=== PATIENT | female | born 1940 | race Caucasian/White ===

== ENCOUNTER 2019-12-01 12:34 | Outpatient (CLI) | payer MEDICARE, SELFPAY ==
--- NOTE | 2019-12-01 12:49 | CT_ITS ---
WS: [id number] CTA ABDOMEN PELVIS TECHNIQUE: Noncontrast plus contrast enhanced CTA of the abdominal aorta with coronal and sagittal re formatted images and additional MIP Images. CLINICAL INFORMATION: AAA COMPARISON: June 23, 2019 DLP: 3339.[address] scans at [facility] use at least one of these dose optimization techniques: automat ed exposure control; mA and/or kV adjustment per patient size (includes targeted exams where dose is matched to clinical indication); or iterative reconstruction. FINDINGS: Interval postoperative changes aortic endograft placement with biiliac extension. Overlapping stent g raft at the level of the renal arteries with dual contrast opacified lumens. Tiny dorsal endoleak at the modular inner endograft inferior junction consistent with type I endoleak. This is just below the renal arteries. Stent remains patent. Peripheral calcification.Right iliac extension with stable right common iliac aneurysm. Excluded infr arenal abdominal aorta aneurysm sac today measures 5.1 x 5.0 x 9.3 CM. This is not significantly wilkins ged from previous. Mild diffuse fatty infiltration of the liver. Cholecystectomy clips. Adrenal glands are normal. Fatty atrophy of the pancreas. Normal spleen. Lung bases are well aerated. Celiac and SMA appear patent at the origin. Bilateral renal artery stents. Normal renal parenchymal enhancement. No hydronephrosis. Diverticulosis. No evidence of acute diverticulitis. No periaortic lymphadenopathy. No free fluid in the pelvis. Hysterectomy. CT/CT angio abdomen pelvis [id number] IMPRESSION: 1. Interval postoperative changes aortic endograft placement. 2. Tiny dorsal endoleak along the inner endograft distal junction just below t he level of the renal arteries. 3. Excluded aneurysm sac today measures 5.1 x 5.0 x 9.3 CM. 4. Biiliac graft extension with stable right common iliac artery aneurysm sac. 5. Bilateral renal artery stents with normal renal parenchymal enhancement. 6. Celiac and SMA are patent proximally. 7. Prior cholecystectomy.
[2019-12-01 13:47] LABS: Blood Urea Nitrogen 20 mg/dL (8-23)
[2019-12-01] MEDS: iodixanol 320 mg/mL 100mL Btl IV (14:22)
== END 2019-12-01 12:35 | disposition home or self-care (01) ==
LOC: RAD 12:40
PROVIDERS: Visit Provider Internal Medicine Cardiovascular Disease
DX: I71.4 Abdominal aortic aneurysm, without rupture (principal); Z01.812 Encounter for preprocedural laboratory examination; Z91.041 Radiographic dye allergy status; T82.898A Other specified complication of vascular prosthetic devices, implants and grafts, initial encounter; Y83.2 Surgical operation with anastomosis, bypass or graft as the cause of abnormal reaction of the patient, or of later complication, without mention of misadventure at the time of the procedure; Z90.49 Acquired absence of other specified parts of digestive tract
CPT/HCPCS: 74174; 82565; 84520

== ENCOUNTER 2020-01-04 13:51 | Outpatient (CLI) | payer MEDICARE, SELFPAY ==
[2020-01-04 14:32] LABS: Basophils % 0.2 %; Eosinophils # 0.7 10^3/uL (0.0-0.8); Hematocrit 35.3 % (37.0-47.0); Lymphocytes # 1.9 10^3/uL (0.8-4.8); Lymphocytes % 18.8 %; Mean Corpuscular HGB Conc 31.2 g/dL (30.0-36.0); Mean Corpuscular Hemoglobin 28.5 pg (28.0-34.0); Mean Corpuscular Volume 91.5 fL (81-99); Mean Platelet Volume 9.8 fL (7.4-10.4); Monocytes # 0.8 10^3/uL (0.2-0.9); Monocytes % 7.3 %; Neutrophils # 6.9 10^3/uL (1.8-7.7); Neutrophils % 66.3 %; Nucleated Red Blood Cells % 0 %; Platelet Count 456 10^3/cmm (130-400); Red Blood Count 3.86 10^6/uL (4.1-5.3); Red Cell Distribution Width 13.1 % (12.1-15.1); White Blood Count 10.3 10^3/uL (4.0-10.0)
[2020-01-04 14:53] LABS: Alanine Aminotransferase 9 U/L (0-33); Albumin Level 3.4 g/dL (3.5-5.2); Alkaline Phosphatase 149 IU/L (35-105); Anion Gap 16.3 (5-19); Aspartate Amino Transferase 11 U/L (0-32); Blood Urea Nitrogen 16 mg/dL (8-23); Calcium 10.5 mg/dL (8.5-10.5); Carbon Dioxide 31 mmol/L (22-29); Chloride 94 mmol/L (98-107); Ferritin 75 ng/mL (15-150); Globulin 3.8 g/dL (1.3-4.6); Glucose 203 mg/dL (65-115); Iron 62 ug/dL (37-145); Percent Saturation 23.3 % (20-50); Potassium 4.3 mmol/L (3.5-5.1); Sodium 137 mmol/L (136-145); Total Bilirubin 0.2 mg/dL (0.15-1.2); Total Iron Binding Capacity 266 mcg/dl; Total Protein 7.2 g/dL (6.6-8.7); Unsaturated Iron Binding 204 ug/dL (112-347)
== END 2020-01-04 13:52 | disposition home or self-care (01) ==
LOC: ONCMED 13:57
PROVIDERS: PCP Family Medicine; Visit Provider Internal Medicine Medical Oncology
DX: D50.9 Iron deficiency anemia, unspecified (principal); C50.411 Malignant neoplasm of upper-outer quadrant of right female breast
CPT/HCPCS: 80053; 82728; 83540; 83550; 85025

== ENCOUNTER 2020-04-12 13:33 | Outpatient (CLI) | payer MEDICARE, SELFPAY ==
[2020-04-12 15:48] LABS: Basophils % 0.2 %; Eosinophils # 0.8 10^3/uL (0.0-0.8); Eosinophils % 6.4 %; Hematocrit 35.5 % (37.0-47.0); Lymphocytes # 2.1 10^3/uL (0.8-4.8); Lymphocytes % 18.2 %; Mean Corpuscular Hemoglobin 27.4 pg (28.0-34.0); Mean Corpuscular Volume 88.5 fL (81-99); Mean Platelet Volume 9.8 fL (7.4-10.4); Monocytes # 0.7 10^3/uL (0.2-0.9); Monocytes % 5.8 %; Neutrophils # 8.1 10^3/uL (1.8-7.7); Neutrophils % 69.2 %; Nucleated Red Blood Cells % 0 %; Platelet Count 543 10^3/cmm (130-400); Red Blood Count 4.01 10^6/uL (4.1-5.3); Red Cell Distribution Width 14.4 % (12.1-15.1); White Blood Count 11.6 10^3/uL (4.0-10.0)
[2020-04-12 16:22] LABS: 25 Hydroxy Vitamin D 39 ng/mL (30-100); Alanine Aminotransferase 10 U/L (0-33); Albumin Level 3.7 g/dL (3.5-5.2); Alkaline Phosphatase 162 IU/L (35-105); Anion Gap 14.6 (5-19); Aspartate Amino Transferase 13 U/L (0-32); Blood Urea Nitrogen 26 mg/dL (8-23); Calcium 9.5 mg/dL (8.5-10.5); Carbon Dioxide 30 mmol/L (22-29); Chloride 92 mmol/L (98-107); Globulin 3.6 g/dL (1.3-4.6); Glucose 212 mg/dL (65-115); Osmolality Calculated 277 mOsm/kg (285-295); Potassium 4.6 mmol/L (3.5-5.1); Sodium 132 mmol/L (136-145); Thyroid Stimulating Hormone 0.51 uIU/mL (0.27-4.20); Total Bilirubin 0.3 mg/dL (0.15-1.2); Total Protein 7.3 g/dL (6.6-8.7)
[2020-04-12 16:33] LABS: Estmated Average Glucose 252; Hemoglobin A1C 10.4 % (4.0-6.0)
--- NOTE | 2020-04-16 11:02 | ONC FU_ITS ---
Dr. Saucedo Patient Follow-Up Note Patient: Paloma Slater Unit #: [id number]: [id number] Dicatated By: Gonzalo Saucedo M.D.Date of Visit:April 12, 2020 Onc Med Follow-up/Prog Note Chief Complaint: Breast cancer/osteoporosis/diabetes. History of Present Illness: This is a 79 year-old woman with grade 2 infiltrating ductal carcinoma of the right breast, stage IIIC (T2, pN3a, M0), ER positive/CT negative and HER-2/josafat positive. She had initially presented with a lump in her right axilla. Mammogram/ultrasound studies showed an upper outer quadrant breast mass as well as in enlarged right axillary lymph node. Ultrasound directed needle biopsy of the breast mass showed moderately differentiated infiltrating adenocarcinoma which was ER positive at 14% and CT negative at less than 5%. It was positive for overexpression of HER-2/josafat, 3+ by IHC and amplification ratio of 8.82 by FISH. She underwent right modified radical mastectomy in August of 2009. Pathology on the mastectomy showed grade 2 invasive ductal carcinoma measuring 2.5 cm in maximum diameter. There was involvement in 15 of 19 axillary lymph nodes. There was associated extracapsular extension. She was given adjuvant chemotherapy with 6 cycles of FEC, which she completed in February 2010. She had refused any taxanes therapy because of concerns over the risk of peripheral neuropathy. She did start Herceptin following the chemotherapy, but she was unable to tolerate it because of a hypersensitivity type reaction. She was then given adjuvant hormonal therapy with Femara, and she also started Zometa infusions every 6 months for osteoporosis. She stopped Femara in 2010 because of side effects, and she declined any further hormonal treatment. Thus far during followup, there has been no evidence of recurrence of the breast cancer. Her other medical illnesses include hypertension, type 2 diabetes, and degenerative disc disease of the lumbar spine. During followup she was found to have B12 deficiency, for which she remains on B12 replacement. She also had evidence of osteoporosis on her bone density study. She had been on treatment with Prolia, but it was stopped due to bone pain. A repeat DEXA scan on 07/22/2017 showed mild osteopenia with T score -1.4 and the lumbar spine and a mean femoral neck T score of -1.1. I had seen her for a follow-up visit on 07/22/2017. At that time it was noted that her alkaline phosphatase had been gradually increasing. She had evaluation with bone scan on 08/13/2017. It showed multiple areas of increased uptake felt to most likely due to arthritis. There was no evidence of metastatic bone disease. Her CT abdomen/pelvis also showed no evidence of a neoplastic process. There was evidence of extensive atherosclerotic peripheral vascular changes including an infrarenal abdominal aortic aneurysm and aneurysmal dilatation of left common iliac artery, and there was moderate appearing stenosis of the origin of the right renal artery. A sestamibi stress test in August 2018 showed mildly reduced left ventricular systolic function with estimated ejection fraction 51%. There was mild global hypokinesis. There was no evidence for coronary ischemia. An abdomen/pelvis CTA on 06/23/2019 reported unchanged infrarenal abdominal aortic aneurysm measuring 5.1 x 5.3 x 9.9 cm. Bilateral common iliac artery aneurysms appeared stable measuring 16-17 mm. There was stable severe stenosis involving the right renal artery origin. CT angiogram of the chest showed no evidence of pulmonary embolus and no acute pulmonary infiltrates. An indeterminate right axillary lymph node measured 1.7 cm. There was evidence of a slightly ectatic descending thoracic aortic aneurysm measuring 3.6 x 3.7 cm. There was no evidence of metastatic disease on either CT study. She is seen for a scheduled visit. She indicates that she underwent surgery for the aneurysm in September. She had an uneventful recovery. She still complains that she has no energy and she has very limited activity. She does just a little bit of very light housework. Her ECOG score is 2. She has good appetite. She has not had fever. She says her hot flashes and sweating have finally stopped. Her main complaint is that the pain in her feet is so bad at night that she can hardly walk to the bathroom. She reports having pain in her legs from her knees down and she complains that the bottoms of her feet burn. She also complains of chronic constipation to the point that she cannot stand it anymore. She has some nausea associated with that. She says her breathing has been pretty good. She is just using oxygen as needed now. She does not complain of cough and she has not been having chest pain. She has urinary frequency and some hesitancy. She does not complain of headache. She does have some dizziness. She has numbness/tingling in her arms and feet. Medications: Adult Aspirin Regimen 81 mg (of 81 mg) Tablet, enteric coated Oral daily, Basaglar KwikPen 20 Units Subcutaneous daily, Benadryl 1 (25 mg) Tablet Oral at bedtime, Calcium + D 1 Tablet (of 315-200 mg - Units) Oral daily, Carvedilol 3.125 mg (of 3.125 mg) Tablet Oral b.i.d., GlipiZIDE 1 (5 mg) Tablet Oral daily, HYDROcodone-Acetaminophen 1 Tablet (of 10-325 mg) Oral q 6 hours PRN, IBU 1 Tablet (of 200 mg) Oral PRN, Lasix 1 Tablet (of 40 mg) Oral daily, Lipitor 1 (80 mg) Tablet Oral at bedtime, Lisinopril 10 mg (of 10 mg) Tablet Oral daily, Plavix 1 Tablet (of 75 mg) Oral daily, Potassium Chloride ER 1 Tablet (of 20 meq) Tablet, controlled release Oral b.i.d., tiZANidine HCl 1 Tablet (of 4 mg) Oral b.i.d. PRN Allergies: ADHESIVES, CODEINE, COMPAZINE, GLIPIZIDE, Ketoconazole, MYCINS, NEOSPORIN, PENICILLIN, and SULFA. Review of Systems: Constitutional - She has no energy, and she has very limited activity. She is able to do just a little bit of very light housework. Appetite is good and weight is stable. No fever. She says her hot flashes night sweats have finally stopped. ECOG score is 2, ENMT - She has sinus congestion/drainage. No mouth sores. She had sore throat last week. No difficulty swallowing, Hematologic/Lymphatic - She has easy bruising, Respiratory - She has shortness of breath. She uses oxygen as needed. No pleuritic pain or hemoptysis, Cardiovascular - No angina pain. No palpitations. She had aneurysm surgery in September, Gastrointestinal - She has constipation, and she is having nausea with it. No heartburn or acid reflux. No blood in the stool or black stools, Genitourinary (F) - She has hesitancy and she has urinary frequency. No dysuria or hematuria. No urgency or incontinence, Musculoskeletal - She has pain in her legs from her knees down. She has back pain, Integumentary - No skin complications, Neurologic - No headache. She has dizziness. She has numbness and tingling in her feet and she complains that the bottoms of her feet burn, Psychiatric - No anxiety or depression. She takes melatonin for insomnia. Vital Signs: Performed on April 12, 2020 13:48 Height - 62.00 in Weight - 204.6 lbs (LOW) BSA - 1.93 sq.m BMI - 37.42 (HIGH) Temperature - 98.3 F (LOW) Pulse - 78 /min Respiration - 26 /min BP - 133/57 mm(hg) O2 Sat - 93 % (LOW) Pain - 8 Physical Examination: Constitutional - She looks pretty good generally, Eyes - Sclerae nonicteric. Conjunctivae clear, ENMT - No lesions noted in the oral cavity, Hematologic/Lymphatic - No cervical or clavicular adenopathy, Respiratory - Lungs are clear, Cardiovascular - Heart rhythm is regular. There is a II/ systolic murmur. There is no gallop or rub noted, Breasts - There right chest wall shows no lesions. The left breast shows no mass. There is no axillary adenopathy, Abdomen - Soft. Liver and spleen are not enlarged. There is no abdominal mass or ascites noted and there is no inguinal adenopathy, Extremities - Mild lower extremity edema, Integumentary - There is an actinic lesion along the right nasal border, Neurologic - No focal neurologic deficits noted. Lab/Imaging: Test performed on April 12, 2020 15:20 Sodium 132 mmol/L TSH 0.51 uIU/mL Vitamin D (25-Hydroxy), Total 39 ng/mL Potassium 4.6 mmol/L Chloride 92 mmol/L CO2 30 mmol/L Anion Gap 14.6 BUN 26 mg/dL Creatinine 1.3 mg/dL Cr Clearance (Est) 53.1000 mL/min Glucose 212 mg/dL Calcium 9.5 mg/dL Protein, Total 7.3 g/dL Albumin 3.7 g/dL Globulin 3.6 g/dL Bilirubin, Total 0.3 mg/dL ALT (SGPT) 10 U/L AST (SGOT) 13 U/L Alkaline Phosphatase 162 IU/L Hemoglobin A1C % 10.4 % WBC 11.6 10 3/uL RBC 4.01 10 6/uL HGB 11.0 g/dL HCT 35.5 % MCV 88.5 fL MCH 27.4 pg MCHC 31.0 g/dL RDW 14.4 % Platelet Count 543 10 3/cmm MPV 9.8 fL Neutrophils 8.1 10 3/uL Lymphocytes 2.1 10 3/uL Monocytes 0.7 10 3/uL Eosinophils 0.8 10 3/uL Basophils 0.0 10 3/uL Neutrophil % 69.2 % Lymphocyte % 18.2 % Monocyte % 5.8 % Eosinophil % 6.4 % Basophils % 0.2 % Impression: 1. Patient with grade 2 infiltrating ductal carcinoma of the right breast, stage IIIC, ER positive/CT negative and HER-2/josafat positive. 2. She undewent right modified radical mastectomy in August 2009. She was given adjuvant chemotherapy with 6 cycles of FEC, completed in February 2010. She was not able to take Herceptin because of a hypersensitivity reaction. 3. She was given adjuvant hormonal therapy with Femara, which she also tolerated poorly. It was stopped in 2010. She has remained on observation since then. Her other medical illnesses include: 4. Hypertension. 5. Type II diabetes with neuropathy. 6. Degenerative arthritis. 7. Osteoporosis. 8. She underwent surgical repair of abdominal aortic aneurysm in September 2019. I had seen her for a follow-up visit in June 2017. At the time she reported increased pain and weakness weakness, and she appeared to have experienced a significant decline in her performance status. Her alkaline phosphatase level had been gradually rising. Bone scan and CT abdomen/pelvis, though, showed no evidence of metastatic disease. She continued on observation/expectant management. During subsequent follow-up she has had ongoing problems with neuropathy pain in the lower extremities. She has had gradual decline in her activity tolerance/performance status. Occasionally she is also been having significant problems with constipation. Her diabetes has not been controlled very well. There has been no evidence, [facility], of recurrence of her breast cancer. Plan: She remains on observation/expectant management for the breast cancer. She is wanting to try changing her pain medication to immediate release oxycodone. She will be given a prescription for Amitiza, which she will take concurrently with senna/docusate. She also will start duloxetine 30 mg daily. The dosage can be escalated, as tolerated, depending on her response. I will see her again in 3 months. Signed By: Gonzalo Saucedo M.D. <<Signature on File>>
== END 2020-04-12 13:34 | disposition home or self-care (01) ==
PROVIDERS: Visit Provider Internal Medicine Medical Oncology
DX: Z08 Encounter for follow-up examination after completed treatment for malignant neoplasm (principal); Z85.3 Personal history of malignant neoplasm of breast; I10 Essential (primary) hypertension; E11.42 Type 2 diabetes mellitus with diabetic polyneuropathy; M19.90 Unspecified osteoarthritis, unspecified site; M81.0 Age-related osteoporosis without current pathological fracture; I71.4 Abdominal aortic aneurysm, without rupture; Z92.21 Personal history of antineoplastic chemotherapy; Z90.11 Acquired absence of right breast and nipple; Z79.899 Other long term (current) drug therapy
CPT/HCPCS: 36415; 80053; 82306; 83036; 84443; 85025; 99214

== ENCOUNTER 2020-06-22 10:19 | Outpatient (CLI) | payer MEDICARE, SELFPAY ==
--- NOTE | 2020-06-26 23:44 | ONC FU_ITS ---
[facility] Patient Note Patient: Paloma Slater Unit #: [id number]: 1940 Dictated By: Maria Teresa HahnDate of Visit: Jun 22, 2020 Onc MED Follow-Up/Prog Note Chief Complaint: Breast cancer/osteoporosis/diabetes. History of Present Illness: This is a 79 year-old woman with grade 2 infiltrating ductal carcinoma of the right breast, stage IIIC (T2, pN3a, M0), ER positive/DC negative and HER-2/josafat positive. She had initially presented with a lump in her right axilla. Mammogram/ultrasound studies showed an upper outer quadrant breast mass as well as in enlarged right axillary lymph node. Ultrasound directed needle biopsy of the breast mass showed moderately differentiated infiltrating adenocarcinoma which was ER positive at 14% and DC negative at less than 5%. It was positive for overexpression of HER-2/josafat, 3+ by IHC and amplification ratio of 8.82 by FISH. She underwent right modified radical mastectomy in August of 2009. Pathology on the mastectomy showed grade 2 invasive ductal carcinoma measuring 2.5 cm in maximum diameter. There was involvement in 15 of 19 axillary lymph nodes. There was associated extracapsular extension. She was given adjuvant chemotherapy with 6 cycles of FEC, which she completed in February 2010. She had refused any taxanes therapy because of concerns over the risk of peripheral neuropathy. She did start Herceptin following the chemotherapy, but she was unable to tolerate it because of a hypersensitivity type reaction. She was then given adjuvant hormonal therapy with Femara, and she also started Zometa infusions every 6 months for osteoporosis. She stopped Femara in 2010 because of side effects, and she declined any further hormonal treatment. Thus far during followup, there has been no evidence of recurrence of the breast cancer. Her other medical illnesses include hypertension, CAD, cardiomegaly, type 2 diabetes, and degenerative disc disease of the lumbar spine. During followup she was found to have B12 deficiency, for which she remains on B12 replacement. She also had evidence of osteoporosis on her bone density study. She had been on treatment with Prolia, but it was stopped due to bone pain. A repeat DEXA scan on 07/22/2017 showed mild osteopenia with T score -1.4 and the lumbar spine and a mean femoral neck T score of -1.1. Dr Saucedo had seen her for a follow-up visit on 07/22/2017. At that time it was noted that her alkaline phosphatase had been gradually increasing. She had evaluation with bone scan on 08/13/2017. It showed multiple areas of increased uptake felt to most likely due to arthritis. There was no evidence of metastatic bone disease. Her CT abdomen/pelvis also showed no evidence of a neoplastic process. There was evidence of extensive atherosclerotic peripheral vascular changes including an infrarenal abdominal aortic aneurysm and aneurysmal dilatation of left common iliac artery, and there was moderate appearing stenosis of the origin of the right renal artery. A sestamibi stress test in August 2018 showed mildly reduced left ventricular systolic function with estimated ejection fraction 51%. There was mild global hypokinesis. There was no evidence for coronary ischemia. An abdomen/pelvis CTA on 06/23/2019 reported unchanged infrarenal abdominal aortic aneurysm measuring 5.1 x 5.3 x 9.9 cm. Bilateral common iliac artery aneurysms appeared stable measuring 16-17 mm. There was stable severe stenosis involving the right renal artery origin. CT angiogram of the chest showed no evidence of pulmonary embolus and no acute pulmonary infiltrates. An indeterminate right axillary lymph node measured 1.7 cm. There was evidence of a slightly ectatic descending thoracic aortic aneurysm measuring 3.6 x 3.7 cm. There was no evidence of metastatic disease on either CT study. She is seen for a unscheduled visit for oxygen re-certification. She indicates that she underwent surgery for the aneurysm in September. She had an uneventful recovery. She still complains that she has no energy and she has very limited activity. She does just a little bit of very light housework. Her ECOG score is 2. She has good appetite. She continues to require oxygen supplementation with activity due to dyspnea, chronic hypoxemia and at night for CAD and CHF. She has been encouraged to utilize it continuously. Her oxygen saturation today on room air with minimal exertion was 88% (walking less than 100 feet at slow pace). Her oxygen saturation returned to 96% within 7 minutes after reapplying her oxygen supplementation at 2 L per NC. Past Medical History: B 12 DEFICIENCY Degenerative disc disease Diabetes type II Osteoporosis Past Surgical History: Hysterectomy Mastectomy - RIGHT MODIFIED RADICAL PORT PLACEMENT PORT A CATH PLACEMENT Allergies: ADHESIVES, CODEINE, COMPAZINE, GLIPIZIDE, Ketoconazole, MYCINS, NEOSPORIN, PENICILLIN, and SULFA. Medications: Adult Aspirin Regimen 81 mg (of 81 mg) Tablet, enteric coated Oral daily Basaglar KwikPen 20 Units Subcutaneous daily Benadryl 1 (25 mg) Tablet Oral at bedtime Calcium + D 1 Tablet (of 315-200 mg - Units) Oral daily Carvedilol 3.125 mg (of 3.125 mg) Tablet Oral b.i.d. GlipiZIDE 1 (5 mg) Tablet Oral daily IBU 1 Tablet (of 200 mg) Oral PRN Lasix 1 Tablet (of 40 mg) Oral daily Lipitor 1 (80 mg) Tablet Oral at bedtime Lisinopril 10 mg (of 10 mg) Tablet Oral daily oxyCODONE HCl 1 Capsule (of 5 mg) Oral four times a day PRN Plavix 1 Tablet (of 75 mg) Oral daily Potassium Chloride ER 1 Tablet (of 20 meq) Tablet, controlled release Oral b.i.d. tiZANidine HCl 1 Tablet (of 4 mg) Oral b.i.d. PRN Family History: Ms. Slater's mother at age 86. Ms. Slater's father at age 65. Ms. Slater has 1 daughter who is alive: cancer history consists of Breast cancer. Social History: Ms. Slater is and she is retired. She is a daily smoker who has smoked 1.5 packs/day for 58 years. She has indicated exposure to the following products: cigarettes. Ms. Slater reports the following support systems: lives with spouse, significant other, family, or friends, lives in own house, supportive family/friends willing to assist with needs, and adequate transportation available for expected visits. Her diet consists of regular meals. She indicates her activity level as: daily activities. Review Of Symptoms: Constitutional She complains of being extremely tired. She states she's been short of breath. She denies fever or chills. Eyes Denies blurred vision, double vision, lacrimation, night blindness, visual difficulties and photophobia. ENMT Denies changes in hearing, sore throat, mouth sores, difficulty or changes in swallowing ability, and/or sinus drainage. Respiratory She's noticed increased shortness of breath if she attempts to do activities of daily living without her oxygen supplementation.. Cardiovascular Denies arrhythmias, chest pain, dyspnea, edema, orthopnea and palpitations. Gastrointestinal Denies nausea, vomiting, diarrhea, GI bleeding, or constipation. Denies change in bowel habits and/or stool color, no heartburn or early satiety. Genitourinary (F) No hematuria, hesitancy, incontinence, vaginal bleeding, discharge or other problems with urination. Musculoskeletal She has chronic pain with degenerative arthritis particularly in her hands, back and knees feet. She states that without her pain medication she cannot walk. She states the pain medication is controlling her pain well. She does not have any complaints of new pain. Integumentary Denies chronic rashes, inflammation, ulcerations or skin changes. Neurologic Denies disorientation, dizziness, abnormal gait, headaches, insomnia, memory loss, motor weakness, sensory problems, paralysis, seizure and stroke. Psychiatric Denies insomnia, depression, rodrigo or mood swings. Vital Signs: Performed on Jun 22, 2020 10:58 Height - 62.00 in Weight - 201.0 lbs (LOW) BSA - 1.92 sq.m BMI - 36.76 (HIGH) Temperature - 97.6 F (LOW) Pulse - 85 /min Respiration - 16 /min BP - 118/51 mm(hg) O2 Sat - 95 % (LOW) Pain - 0,2 - Ambulatory/capable of all self-care, unable to perform any work activities. Up and about more than 50% of waking hours. (ECOG) Physical Examination: Constitutional Alert, oriented, no acute distress. Skin pink, warm and dry. Head Normocephalic; atraumatic. Eyes Conjunctivae and sclerae are clear and without icterus. Pupils are reactive and equal. Neck Supple without masses or thyromegaly. No jugular venous distension. Hematologic/Lymphatic No petechiae or purpura. No tender or palpable lymph nodes in the cervical, supraclavicular, or axillary area. Respiratory Lungs are diminished bilaterally without rhonchi, but she does have faint expiratory wheezing. Cardiovascular Regular rate and rhythm of heart without murmurs,clicks, gallops or rubs. Back/Spine Non-tender to palpation. Extremities +1 bilateral lower extremity edema. Integumentary No rashes or lesions. Psychiatric Alert and oriented times three. Coherent speech. Verbalizes understanding of our discussions today. Laboratory:Test performed on April 12, 2020 15:20 Sodium 132 mmol/L TSH 0.51 uIU/mL Vitamin D (25-Hydroxy), Total 39 ng/mL Potassium 4.6 mmol/L Chloride 92 mmol/L CO2 30 mmol/L Anion Gap 14.6 BUN 26 mg/dL Creatinine 1.3 mg/dL Cr Clearance (Est) 53.1000 mL/min Glucose 212 mg/dL Calcium 9.5 mg/dL Protein, Total 7.3 g/dL Albumin 3.7 g/dL Globulin 3.6 g/dL Bilirubin, Total 0.3 mg/dL ALT (SGPT) 10 U/L AST (SGOT) 13 U/L Alkaline Phosphatase 162 IU/L Hemoglobin A1C % 10.4 % WBC 11.6 10 3/uL RBC 4.01 10 6/uL HGB 11.0 g/dL HCT 35.5 % MCV 88.5 fL MCH 27.4 pg MCHC 31.0 g/dL RDW 14.4 % Platelet Count 543 10 3/cmm MPV 9.8 fL Neutrophils 8.1 10 3/uL Lymphocytes 2.1 10 3/uL Monocytes 0.7 10 3/uL Eosinophils 0.8 10 3/uL Basophils 0.0 10 3/uL Neutrophil % 69.2 % Lymphocyte % 18.2 % Monocyte % 5.8 % Eosinophil % 6.4 % Basophils % 0.2 % Test performed on Jan 04, 2020 14:08 Ferritin 75 ng/mL Iron 62 ug/dL UIBC 204 ug/dL Impression: 1. Patient with grade 2 infiltrating ductal carcinoma of the right breast, stage IIIC, ER positive/DC negative and HER-2/josafat positive. 2. She underwent right modified radical mastectomy in August 2009. She was given adjuvant chemotherapy with 6 cycles of FEC, completed in February 2010. She was not able to take Herceptin because of a hypersensitivity reaction. 3. She was given adjuvant hormonal therapy with Femara, which she also tolerated poorly. It was stopped in 2010. She has remained on observation since then. Her other medical illnesses include: 4. Hypertension, CAD, cardiomegaly 5. Type II diabetes with neuropathy. 6. Degenerative arthritis. 7. Osteoporosis. 8. She underwent surgical repair of abdominal aortic aneurysm in September 2019. I had seen her for a follow-up visit in June 2017. At the time she reported increased pain and weakness weakness, and she appeared to have experienced a significant decline in her performance status. Her alkaline phosphatase level had been gradually rising. Bone scan and CT abdomen/pelvis, though, showed no evidence of metastatic disease. She continued on observation/expectant management. During subsequent follow-up she has had ongoing problems with neuropathy pain in the lower extremities. She has had gradual decline in her activity tolerance/performance status. Occasionally she is also been having significant problems with constipation. Her diabetes has not been controlled very well. There has been no evidence, though, of recurrence of her breast cancer. She continues to require continuous oxygen supplementation. Plan: 1. Recertify oxygen supplementation: 2 L per NC, continuous for room air oxygen saturation with minimal exertion( of walking less than 100 feet) of 88%. Her oxygen saturation corrected to 95 % after reapplying her oxygen supplementation at 2 L per NC. 2. Length of need is 99 months. 3. DX: CAD, CHF with lower extremity edema, chronic hypoxia. 4. She will need a portable oxygen concentrator as she cannot carry a standard portable oxygen tank due to her degenerative arthritis and osteoporosis. 5. We will plan to see her back in year in regards to oxygen recertification and as scheduled for her normal followup. Signed By: Maria Teresa Hahn-SILVIA AN <<Signature on File>>
== END 2020-06-22 10:20 | disposition home or self-care (01) ==
PROVIDERS: PCP Family Medicine; Visit Provider Nurse Practitioner
DX: R09.02 Hypoxemia (principal); I25.10 Atherosclerotic heart disease of native coronary artery without angina pectoris; I50.9 Heart failure, unspecified; R60.0 Localized edema; I51.7 Cardiomegaly; E11.40 Type 2 diabetes mellitus with diabetic neuropathy, unspecified; M19.90 Unspecified osteoarthritis, unspecified site; M81.0 Age-related osteoporosis without current pathological fracture; K59.00 Constipation, unspecified; Z85.3 Personal history of malignant neoplasm of breast
CPT/HCPCS: 99214

== ENCOUNTER 2020-07-13 15:17 | Outpatient (CLI) | payer MEDICARE, SELFPAY ==
--- NOTE | 2020-07-15 19:10 | ONC FU_ITS ---
Dr. Saucedo Patient Follow-Up Note Patient: Paloma Slater Unit #: [id number]: 1940 Dicatated By: Gonzalo Saucedo M.D.Date of Visit:Jul 13, 2020 Onc Med Follow-up/Prog Note Chief Complaint: Breast cancer/osteoporosis/diabetes. History of Present Illness: This is a 79 year-old woman with grade 2 infiltrating ductal carcinoma of the right breast, stage IIIC (T2, pN3a, M0), ER positive/IA negative and HER-2/josafat positive. She had initially presented with a lump in her right axilla. Mammogram/ultrasound studies showed an upper outer quadrant breast mass as well as in enlarged right axillary lymph node. Ultrasound directed needle biopsy of the breast mass showed moderately differentiated infiltrating adenocarcinoma which was ER positive at 14% and IA negative at less than 5%. It was positive for overexpression of HER-2/josafat, 3+ by IHC and amplification ratio of 8.82 by FISH. She underwent right modified radical mastectomy in August of 2009. Pathology on the mastectomy showed grade 2 invasive ductal carcinoma measuring 2.5 cm in maximum diameter. There was involvement in 15 of 19 axillary lymph nodes. There was associated extracapsular extension. She was given adjuvant chemotherapy with 6 cycles of FEC, which she completed in February 2010. She had refused any taxanes therapy because of concerns over the risk of peripheral neuropathy. She did start Herceptin following the chemotherapy, but she was unable to tolerate it because of a hypersensitivity type reaction. She was then given adjuvant hormonal therapy with Femara, and she also started Zometa infusions every 6 months for osteoporosis. She stopped Femara in 2010 because of side effects, and she declined any further hormonal treatment. Thus far during followup, there has been no evidence of recurrence of the breast cancer. Her other medical illnesses include hypertension, type 2 diabetes, and degenerative disc disease of the lumbar spine. During followup she was found to have B12 deficiency, for which she remains on B12 replacement. She also had evidence of osteoporosis on her bone density study. She had been on treatment with Prolia, but it was stopped due to bone pain. A repeat DEXA scan on 07/22/2017 showed mild osteopenia with T score -1.4 and the lumbar spine and a mean femoral neck T score of -1.1. I had seen her for a follow-up visit on 07/22/2017. At that time it was noted that her alkaline phosphatase had been gradually increasing. She had evaluation with bone scan on 08/13/2017. It showed multiple areas of increased uptake felt to most likely due to arthritis. There was no evidence of metastatic bone disease. Her CT abdomen/pelvis also showed no evidence of a neoplastic process. There was evidence of extensive atherosclerotic peripheral vascular changes including an infrarenal abdominal aortic aneurysm and aneurysmal dilatation of left common iliac artery, and there was moderate appearing stenosis of the origin of the right renal artery. A sestamibi stress test in August 2018 showed mildly reduced left ventricular systolic function with estimated ejection fraction 51%. There was mild global hypokinesis. There was no evidence for coronary ischemia. An abdomen/pelvis CTA on 06/23/2019 reported unchanged infrarenal abdominal aortic aneurysm measuring 5.1 x 5.3 x 9.9 cm. Bilateral common iliac artery aneurysms appeared stable measuring 16-17 mm. There was stable severe stenosis involving the right renal artery origin. CT angiogram of the chest showed no evidence of pulmonary embolus and no acute pulmonary infiltrates. An indeterminate right axillary lymph node measured 1.7 cm. There was evidence of a slightly ectatic descending thoracic aortic aneurysm measuring 3.6 x 3.7 cm. There was no evidence of metastatic disease on either CT study. She is seen for a scheduled visit. She feels tired and exhausted. She has been doing some walking. She does just a little bit of light work. Her ECOG score is 2. She has good appetite. She has no fever or night sweats. She does not have cough, and she does not complain of shortness of breath or chest pain. She occasionally has nausea and she has occasional acid reflux. She has constipation, but bowel function is adequate with her current regimen. Her urination is slow. She complains that her back cripples her. Her pain pill is helping but it needs to be stronger. She does not complain of headache. She has orthostatic lightheadedness. The neuropathy in her feet is awful. Medications: Adult Aspirin Regimen 81 mg (of 81 mg) Tablet, enteric coated Oral daily, Basaglar KwikPen 32 Units Subcutaneous daily, Benadryl 1 (25 mg) Tablet Oral at bedtime, Calcium + D 1 Tablet (of 315-200 mg - Units) Oral daily, Carvedilol 3.125 mg (of 3.125 mg) Tablet Oral b.i.d., GlipiZIDE 1 (5 mg) Tablet Oral daily, IBU 1 Tablet (of 200 mg) Oral PRN, Lasix 1 Tablet (of 40 mg) Oral b.i.d., Lipitor 1 (80 mg) Tablet Oral at bedtime, Lisinopril 10 mg (of 10 mg) Tablet Oral daily, oxyCODONE HCl 1 Capsule (of 5 mg) Oral four times a day PRN, Plavix 1 Tablet (of 75 mg) Oral daily, Potassium Chloride ER 1 Tablet (of 20 meq) Tablet, controlled release Oral b.i.d., tiZANidine HCl 1 Tablet (of 4 mg) Oral b.i.d. PRN Allergies: ADHESIVES, CODEINE, COMPAZINE, GLIPIZIDE, Ketoconazole, MYCINS, NEOSPORIN, PENICILLIN, and SULFA. Review of Systems: Constitutional - She feels tired and exhausted. She is doing some walking and she does a little bit of light housework. Appetite is good. Her weight is stable. She has no fever or night sweats. ECOG score is 2, ENMT - No more than usual sinus drainage. No mouth sores. No sore throat or difficulty swallowing, Hematologic/Lymphatic - No abnormal bruising or bleeding, Respiratory - No shortness of breath. No cough. No pleuritic pain or hemoptysis, Cardiovascular - No angina pain. No palpitations, Gastrointestinal - She occasionally has nausea and she has occasional acid reflux. She has constipation. No blood in the stool or black stools, Genitourinary (F) - Her urination is slow. No dysuria or hematuria. No urinary frequency. No urgency or incontinence, Musculoskeletal - She complains that her back crippled her to the point that she cannot do anything, Neurologic - No headache. She has orthostatic lightheadedness. The neuropathy in her feet is awful, Psychiatric - No anxiety or depression. She sleeps in spurts. Vital Signs: Performed on Jul 13, 2020 15:26 Height - 62.00 in Weight - 204.2 lbs (HIGH) BSA - 1.93 sq.m BMI - 37.35 (HIGH) Temperature - 98.9 F (HIGH) Pulse - 65 /min Respiration - 19 /min BP - 105/62 mm(hg) O2 Sat - 94 % (LOW) Pain - 5 Fatigue - 7 Physical Examination: Constitutional - She looks pretty good generally, Eyes - Sclerae nonicteric. Conjunctivae clear, ENMT - No lesions noted in the oral cavity, Hematologic/Lymphatic - No cervical or clavicular adenopathy, Respiratory - Lungs are clear, Cardiovascular - Heart rhythm is irregular. There is a II/ systolic murmur. There is no gallop or rub noted, Abdomen - Soft. Liver and spleen are not enlarged. There is no abdominal mass or ascites noted and there is no inguinal adenopathy, Extremities - Mild lower extremity edema, Neurologic - No focal neurologic deficits noted. Impression: 1. Patient with grade 2 infiltrating ductal carcinoma of the right breast, stage IIIC, ER positive/IA negative and HER-2/josafat positive. 2. She undewent right modified radical mastectomy in August 2009. She was given adjuvant chemotherapy with 6 cycles of FEC, completed in February 2010. She was not able to take Herceptin because of a hypersensitivity reaction. 3. She was given adjuvant hormonal therapy with Femara, which she also tolerated poorly. It was stopped in 2010. She has remained on observation since then. Her other medical illnesses include: 4. Hypertension. 5. Type II diabetes with neuropathy. 6. Degenerative arthritis. 7. Osteoporosis. 8. She underwent surgical repair of abdominal aortic aneurysm in September 2019. I had seen her for a follow-up visit in June 2017. At the time she reported increased pain and weakness weakness, and she appeared to have experienced a significant decline in her performance status. Her alkaline phosphatase level had been gradually rising. Bone scan and CT abdomen/pelvis, though, showed no evidence of metastatic disease. She continued on observation/expectant management. During subsequent follow-up she has had gradual decline in her performance status, and she continues to have very limited activity. She also continues to have significant back pain, and she has painful neuropathy in her feet. There has been no evidence, though, a recurrence of the breast cancer. Plan: She remains on observation/expectant management for the breast cancer. I will increase the doses of her immediate release oxycodone to 10 mg. I will see her again in 3 months. In the meantime, I also will schedule a dermatology appointment for her, as she has had treatment for skin cancer and actinic keratoses. Signed By: Gonzalo Saucedo M.D. <<Signature on File>>
== END 2020-07-13 15:18 | disposition home or self-care (01) ==
LOC: ONCMED 15:21
PROVIDERS: PCP Family Medicine; Visit Provider Internal Medicine Medical Oncology
DX: Z08 Encounter for follow-up examination after completed treatment for malignant neoplasm (principal); Z85.3 Personal history of malignant neoplasm of breast; Z79.891 Long term (current) use of opiate analgesic; Z90.11 Acquired absence of right breast and nipple; Z92.21 Personal history of antineoplastic chemotherapy; Z92.23 Personal history of estrogen therapy; I10 Essential (primary) hypertension; E11.42 Type 2 diabetes mellitus with diabetic polyneuropathy; M19.90 Unspecified osteoarthritis, unspecified site; M81.0 Age-related osteoporosis without current pathological fracture; Z85.828 Personal history of other malignant neoplasm of skin; Z87.2 Personal history of diseases of the skin and subcutaneous tissue
CPT/HCPCS: 99214

== ENCOUNTER → 2020-08-08 14:21 | Outpatient (BNVA) | payer MEDICARE, SELFPAY | PROVIDERS: PCP Family Medicine; Referring Provider Internal Medicine Medical Oncology; Visit Provider Dermatology | DX: D48.5 Neoplasm of uncertain behavior of skin (principal); L57.0 Actinic keratosis; L85.1 Acquired keratosis [keratoderma] palmaris et plantaris; L85.3 Xerosis cutis; L70.8 Other acne; Z85.828 Personal history of other malignant neoplasm of skin; D48.9 Neoplasm of uncertain behavior, unspecified | CPT/HCPCS: 11102; 17000; 88304; 99203; 99204 ==

== ENCOUNTER → 2020-09-19 11:26 | Outpatient (BNVA) | payer MEDICARE, SELFPAY | PROVIDERS: PCP Family Medicine; Visit Provider Family Medicine | DX: E13.9 Other specified diabetes mellitus without complications (principal); E78.5 Hyperlipidemia, unspecified | CPT/HCPCS: 80053; 80061; 82043; 83036 ==

== ENCOUNTER 2020-10-24 13:13 | Outpatient (CLI) | payer MEDICARE, SELFPAY ==
[2020-10-24 13:45] LABS: Basophils % 0.2 %; Eosinophils # 0.8 10^3/uL (0.0-0.8); Eosinophils % 8.4 %; Hematocrit 35.5 % (37.0-47.0); Hemoglobin 11.1 g/dL (11.5-15.3); Lymphocytes # 1.9 10^3/uL (0.8-4.8); Lymphocytes % 18.9 %; Mean Corpuscular HGB Conc 31.3 g/dL (30.0-36.0); Mean Corpuscular Hemoglobin 27.2 pg (28.0-34.0); Mean Platelet Volume 9.6 fL (7.4-10.4); Monocytes # 0.7 10^3/uL (0.2-0.9); Monocytes % 6.9 %; Neutrophils % 65.3 %; Nucleated Red Blood Cells % 0 %; Platelet Count 453 10^3/cmm (130-400); Red Blood Count 4.08 10^6/uL (4.1-5.3); White Blood Count 9.8 10^3/uL (4.0-10.0)
[2020-10-24 13:59] LABS: Alanine Aminotransferase 8 U/L (0-33); Albumin Level 3.7 g/dL (3.5-5.2); Alkaline Phosphatase 173 IU/L (35-105); Anion Gap 15.1 (5-19); Aspartate Amino Transferase 7 U/L (0-32); Blood Urea Nitrogen 22 mg/dL (8-23); Calcium 9.2 mg/dL (8.5-10.5); Carbon Dioxide 33 mmol/L (22-29); Chloride 93 mmol/L (98-107); Globulin 3.3 g/dL (1.3-4.6); Glucose 224 mg/dL (65-115); Osmolality Calculated 294 mOsm/kg (285-295); Potassium 4.1 mmol/L (3.5-5.1); Sodium 137 mmol/L (136-145); Total Bilirubin 0.4 mg/dL (0.15-1.2)
[2020-10-24 14:53] LABS: Estmated Average Glucose 163; Hemoglobin A1C 7.3 % (4.0-6.0)
--- NOTE | 2020-10-28 11:12 | ONC FU_ITS ---
Dr. Saucedo Patient Follow-Up Note Patient: Paloma Slater Unit #: [id number]: 1940 Dicatated By: Gonzalo Saucedo M.D.Date of Visit:Oct 24, 2020 Onc Med Follow-up/Prog Note Chief Complaint: Breast cancer/osteoporosis/diabetes. History of Present Illness: This is a 80 year-old woman with grade 2 infiltrating ductal carcinoma of the right breast, stage IIIC (T2, pN3a, M0), ER positive/MA negative and HER-2/josafat positive. She had initially presented with a lump in her right axilla. Mammogram/ultrasound studies showed an upper outer quadrant breast mass as well as in enlarged right axillary lymph node. Ultrasound directed needle biopsy of the breast mass showed moderately differentiated infiltrating adenocarcinoma which was ER positive at 14% and MA negative at less than 5%. It was positive for overexpression of HER-2/josafat, 3+ by IHC and amplification ratio of 8.82 by FISH. She underwent right modified radical mastectomy in August of 2009. Pathology on the mastectomy showed grade 2 invasive ductal carcinoma measuring 2.5 cm in maximum diameter. There was involvement in 15 of 19 axillary lymph nodes. There was associated extracapsular extension. She was given adjuvant chemotherapy with 6 cycles of FEC, which she completed in February 2010. She had refused any taxanes therapy because of concerns over the risk of peripheral neuropathy. She did start Herceptin following the chemotherapy, but she was unable to tolerate it because of a hypersensitivity type reaction. She was then given adjuvant hormonal therapy with Femara, and she also started Zometa infusions every 6 months for osteoporosis. She stopped Femara in 2010 because of side effects, and she declined any further hormonal treatment. Thus far during followup, there has been no evidence of recurrence of the breast cancer. Her other medical illnesses include hypertension, type 2 diabetes, and degenerative disc disease of the lumbar spine. During followup she was found to have B12 deficiency, for which she remains on B12 replacement. She also had evidence of osteoporosis on her bone density study. She had been on treatment with Prolia, but it was stopped due to bone pain. A repeat DEXA scan on 07/22/2017 showed mild osteopenia with T score -1.4 and the lumbar spine and a mean femoral neck T score of -1.1. I had seen her for a follow-up visit on 07/22/2017. At that time it was noted that her alkaline phosphatase had been gradually increasing. She had evaluation with bone scan on 08/13/2017. It showed multiple areas of increased uptake felt to most likely due to arthritis. There was no evidence of metastatic bone disease. Her CT abdomen/pelvis also showed no evidence of a neoplastic process. There was evidence of extensive atherosclerotic peripheral vascular changes including an infrarenal abdominal aortic aneurysm and aneurysmal dilatation of left common iliac artery, and there was moderate appearing stenosis of the origin of the right renal artery. A sestamibi stress test in August 2018 showed mildly reduced left ventricular systolic function with estimated ejection fraction 51%. There was mild global hypokinesis. There was no evidence for coronary ischemia. An abdomen/pelvis CTA on 06/23/2019 reported unchanged infrarenal abdominal aortic aneurysm measuring 5.1 x 5.3 x 9.9 cm. Bilateral common iliac artery aneurysms appeared stable measuring 16-17 mm. There was stable severe stenosis involving the right renal artery origin. CT angiogram of the chest showed no evidence of pulmonary embolus and no acute pulmonary infiltrates. An indeterminate right axillary lymph node measured 1.7 cm. There was evidence of a slightly ectatic descending thoracic aortic aneurysm measuring 3.6 x 3.7 cm. There was no evidence of metastatic disease on either CT study. She is seen for a followup visit. She complains that for the past couple of weeks she has been out of breath all the time. She has been on oxygen continuously. She feels completely wore out and she says she is sitting 90% of the time. If she lies down she instantly cannot breathe, and she has been having to sleep in a recliner. Her appetite has been poor, but she thinks it is coming back now. She does not have fever, night sweats, or hot flashes. She does not complain of cough and she has not been having chest pain. She has nausea pretty often. She has just occasional heartburn. She has chronic constipation, but lately her bowel function has been adequate taking senna/docusate twice a day. Bladder function has been okay. She has pain in the back of her legs, in her feet, and in her arms. She has been getting charley horses in the back of her legs. She also has numbness/tingling in her hands and feet. Medications: Adult Aspirin Regimen 81 mg (of 81 mg) Tablet, enteric coated Oral daily, Basaglar KwikPen 32 Units Subcutaneous daily, Benadryl 1 (25 mg) Tablet Oral at bedtime, Calcium + D 1 Tablet (of 315-200 mg - Units) Oral daily, Carvedilol 3.125 mg (of 3.125 mg) Tablet Oral b.i.d., GlipiZIDE 1 (5 mg) Tablet Oral daily, IBU 1 Tablet (of 200 mg) Oral PRN, Lasix 1 Tablet (of 40 mg) Oral b.i.d., Lipitor 1 (80 mg) Tablet Oral at bedtime, Lisinopril 10 mg (of 10 mg) Tablet Oral daily, oxyCODONE HCl 1 Capsule (of 5 mg) Oral four times a day PRN, Plavix 1 Tablet (of 75 mg) Oral daily, Potassium Chloride ER 1 Tablet (of 20 meq) Tablet, controlled release Oral b.i.d., tiZANidine HCl 1 Tablet (of 4 mg) Oral b.i.d. PRN Allergies: ADHESIVES, CODEINE, COMPAZINE, GLIPIZIDE, Ketoconazole, MYCINS, NEOSPORIN, PENICILLIN, and SULFA. Review of Systems: Constitutional - She complains that she is wore out. She is sitting 90% of the time. Appetite has been poor, but she she thinks it is coming back. Her weight is stable. She does not have fever, night sweats, or hot flashes. ECOG score is 3, ENMT - She has sinus congestion/drainage. No mouth sores. She was having sore throat, but that is better now. No difficulty swallowing, Hematologic/Lymphatic - No abnormal bruising or bleeding, Respiratory - For the past couple of weeks she has been short of breath all the time, and she has been on oxygen continuously. She says that when she lies down she instantly cannot breathe. She does not complain of cough. No pleuritic pain or hemoptysis, Cardiovascular - No angina pain. No palpitations, Gastrointestinal - She has nausea pretty often. She occasionally has heartburn. She has constipation, but lately her bowel function has been adequate taking senna/docusate twice a day. No blood in the stool or black stools, Genitourinary (F) - No dysuria or hematuria. No urinary frequency. No urgency or incontinence, Musculoskeletal - She has pain in the back of her legs and in her feet and she also complains that her arms hurt. She also complains of having charley horses in the back of her legs, Integumentary - No skin rash, Neurologic - She occasionally has headache and she complains of having dizziness. She has numbness and tingling in her hands and feet, Psychiatric - No anxiety or depression. She has difficulty sleeping. Vital Signs: Performed on Oct 24, 2020 15:00 Height - 62.00 in Weight - 201.0 lbs (LOW) BSA - 1.92 sq.m BMI - 36.76 (HIGH) Temperature - 99.1 F (HIGH) Pulse - 82 /min Respiration - 22 /min BP - 111/71 mm(hg) O2 Sat - 97 % Pain - 0 Physical Examination: Constitutional - She appears somewhat weak generally and she is short of breath with effort, Eyes - Sclerae nonicteric. Conjunctivae clear, ENMT - Mouth is dry. There are lesions noted in the oral cavity, Hematologic/Lymphatic - No cervical, clavicular, or axillary adenopathy, Respiratory - Lungs sound clear with diminished air movement bilaterally, Cardiovascular - Heart rhythm is irregular. There is a II/ systolic murmur. There is no gallop or rub noted, Abdomen - Mildly distended and tympanic. Liver and spleen are not enlarged. There is no abdominal mass or ascites noted and there is no inguinal adenopathy, Extremities - There is no edema, Neurologic - No focal neurologic deficits noted. Lab/Imaging: Test performed on Oct 24, 2020 13:28 Sodium 137 mmol/L Potassium 4.1 mmol/L Chloride 93 mmol/L Est Avg Glucose (eAG) 163 mg/dL CO2 33 mmol/L Anion Gap 15.1 BUN 22 mg/dL Creatinine 1.3 mg/dL Cr Clearance (Est) 51.33 mL/min Glucose 224 mg/dL Osmolality - Calculated 294 mOsm/kg Calcium 9.2 mg/dL Protein, Total 7.0 g/dL Albumin 3.7 g/dL Globulin 3.3 g/dL Bilirubin, Total 0.4 mg/dL ALT (SGPT) 8 U/L AST (SGOT) 7 U/L Alkaline Phosphatase 173 IU/L Hemoglobin A1C % 7.3 % WBC 9.8 10 3/uL RBC 4.08 10 6/uL HGB 11.1 g/dL HCT 35.5 % MCV 87.0 fL MCH 27.2 pg MCHC 31.3 g/dL RDW 15.0 % Platelet Count 453 10 3/cmm MPV 9.6 fL Neutrophils 6.40 10 3/uL Lymphocytes 1.9 10 3/uL Monocytes 0.7 10 3/uL Eosinophils 0.8 10 3/uL Basophils 0.0 10 3/uL Neutrophil % 65.3 % Lymphocyte % 18.9 % Monocyte % 6.9 % Eosinophil % 8.4 % Basophils % 0.2 % NRBC % 0 % Impression: 1. Patient with grade 2 infiltrating ductal carcinoma of the right breast, stage IIIC, ER positive/MA negative and HER-2/josafat positive. 2. She undewent right modified radical mastectomy in August 2009. She was given adjuvant chemotherapy with 6 cycles of FEC, completed in February 2010. She was not able to take Herceptin because of a hypersensitivity reaction. 3. She was given adjuvant hormonal therapy with Femara, which she also tolerated poorly. It was stopped in 2010. She has remained on observation since then. Her other medical illnesses include: 4. Hypertension. 5. Type II diabetes with neuropathy. 6. Degenerative arthritis. 7. Osteoporosis. 8. She underwent surgical repair of abdominal aortic aneurysm in September 2019. I had seen her for a follow-up visit in June 2017. At the time she reported increased pain and weakness weakness, and she appeared to have experienced a significant decline in her performance status. Her alkaline phosphatase level had been gradually rising. Bone scan and CT abdomen/pelvis, though, showed no evidence of metastatic disease. She continued on observation/expectant management. During subsequent follow-up she continued to show gradual decline in her performance status and she has had ongoing problems with chronic pain, most of which appears to be neuropathy related. Recently she has been having severe shortness of breath and orthopnea and there has been further decline in her activity tolerance. Plan: She remains on observation/expectant management for the breast cancer. She will continue immediate release oxycodone to 10 mg as needed for pain. She will be scheduled for chest x-ray, echocardiogram, and pulmonary function studies. She will have further evaluation as indicated. Signed By: Gonzalo Saucedo M.D. <<Signature on File>>
== END 2020-10-24 13:14 | disposition home or self-care (01) ==
LOC: ONCMED 13:16
PROVIDERS: PCP Family Medicine; Visit Provider Internal Medicine Medical Oncology
DX: Z08 Encounter for follow-up examination after completed treatment for malignant neoplasm (principal); Z85.3 Personal history of malignant neoplasm of breast; E11.42 Type 2 diabetes mellitus with diabetic polyneuropathy; G89.29 Other chronic pain; R06.01 Orthopnea; R06.02 Shortness of breath; M81.0 Age-related osteoporosis without current pathological fracture; I10 Essential (primary) hypertension; M19.90 Unspecified osteoarthritis, unspecified site; Z90.11 Acquired absence of right breast and nipple; Z92.22 Personal history of monoclonal drug therapy; Z92.23 Personal history of estrogen therapy; Z79.891 Long term (current) use of opiate analgesic; Z79.4 Long term (current) use of insulin
CPT/HCPCS: 36415; 80053; 83036; 85025; 99214

== ENCOUNTER 2020-11-28 14:32 | Outpatient (CLI) | payer MEDICARE, SELFPAY ==
--- NOTE | 2020-11-28 14:42 | USCV_ITS ---
Paloma Slater Age: 80 Gender: F : 1940 Exam Date: 11/28/2020 14:55 Ordering Phys: Gonzalo Saucedo MD Technologist: Nathaly Sheriff [place] [facility] [place]: CM BP: 145 / 60 HR: 54 Rhythm: Sinus Technical Quality: Adequate MEASUREMENTS (Male / Female) Normal Values 2D ECHO LV Diastolic Diameter PLAX 5.0 cm 4.2 - 5.9 / 3.9 - 5.3 cm LV Systolic Diameter PLAX 4.1 cm LV Chamber Size 5.5 cm IVS Diastolic Thickness 1.3 cm 0.6 - 1.0 / 0.6 - 0.9 cm IVS Systolic Thickness 1.3 cm LVPW Diastolic Thickness 1.2 cm 0.6 - 1.0 / 0.6 - 0.9 cm LVPW Systolic Thickness 1.0 cm RV Chamber Size 2.5 cm LVOT Diameter 2.0 cm LV Ejection Fraction 2D Teich 37.4 % LA Diameter 5.0 cm LA Width 4.5 cm LA Height 6.0 cm RA Width 3.1 cm RA Height 4.8 cm M-MODE LV Diastolic Diameter MM 5.2 cm 4.2 - 5.9 / 3.9 - 5.3 cm LV Systolic Diameter MM 4.4 cm LV Ejection Fraction MM Teich 31.7 % IVS Diastolic Thickness MM 1.0 cm 0.6 - 1.0 / 0.6 - 0.9 cm IVS Systolic Thickness MM 1.2 cm LVPW Diastolic Thickness MM 1.1 cm 0.6 - 1.0 / 0.6 - 0.9 cm LVPW Systolic Thickness MM 1.4 cm RV Diastolic Diameter MM 2.0 cm Aortic Annulus Diameter 3.2 cm LA Ao Ratio MM 1.6 MV E Point Septal Separation 0.7 cm DOPPLER AV Peak Velocity 114.0 cm/s LVOT Peak Velocity 74.3 cm/s AV Area Cont Eq vti 1.9 cm squared AV Area Cont Eq pk 2.0 cm squared MV Area PHT 3.1 cm squared MV E' Velocity 48.5 cm/s Mitral E to MV E' Ratio 12.2 Mitral E to LV E' Lateral Ratio 11.6 Mitral E to LV E' Septal Ratio 12.9 TV Peak E Velocity 64.0 cm/s Right Atrial Pressure 8.0 mmHg PV Peak Velocity 86.0 cm/s FINDINGS Left Ventricle Normal LV size with diminished ejection fraction of 37%. Diffuse hypokinesia of the left ventricle.mild left ventricular hypertrophy. Right Ventricle Possibly of normal size and ejection fraction Right Atrium Possibly of normal size. Could not visualize well Left Atrium Mildly increased left atrial size. Mitral Valve Thickened mitral valve. Moderate mitral annular calcification. Aortic Valve Thickened aortic valve. Tricuspid Valve Could not be visualized well Pulmonic Valve Pulmonic valve not well visualized. Pericardium No pericardial effusion. Aorta Normal aortic annulus size. CONCLUSIONS Normal LV size with diminished ejection fraction of 37%. Mild concentric left ventricular hypertrophy Diffuse hypokinesia of the left ventricle. Mildly increased left atrial size. Thickened aortic and mitral valves. Moderate mitral annular calcification. There is no pericardial effusion. Compared to the study from 11/12/2017, there may not be a significant change in the 2D findings Dr Jazmín Aguiar MD [facility] (Electronically Signed) Final Date: 28 November 2020 20:16 S
== END 2020-11-28 14:33 | disposition home or self-care (01) ==
PROVIDERS: PCP Family Medicine; Visit Provider Internal Medicine Medical Oncology
DX: I42.9 Cardiomyopathy, unspecified (principal); R06.02 Shortness of breath; I08.0 Rheumatic disorders of both mitral and aortic valves
CPT/HCPCS: 93306

== ENCOUNTER 2020-11-30 12:54 | Outpatient (CLI) | payer MEDICARE, SELFPAY ==
--- NOTE | 2020-11-30 13:02 | MM_ITS ---
WS: [id number] Left breast diagnostic digital mammogram, 11/30/2020 Clinical Data: HX OF BREAST CA;RT MAST Comparison: 08/02/2019, 07/28/2018, 07/22/2017, 07/18/2016, 04/10/2015, 03/18/2014, 03/04/2013, 03/03/2012, 07/27. Findings: The left breast shows fibroglandular tissue. There are scattered benign densities seen. No spiculated masses or clustered calcifications are seen. There are no secondary signs of carcinoma. There are sm all lymph nodes in the axilla. MM/[place] [id number] Impression: 1. Negative left breast mammogram. 2. Recommend annual left breast mammogram. BIRADS: 1-Negative FOLLOW UP: 1 Year Follow-up The CAD bag checker was used.
== END 2020-11-30 12:55 | disposition home or self-care (01) ==
LOC: RADSHAW 12:59
PROVIDERS: PCP Family Medicine; Visit Provider Internal Medicine Medical Oncology
DX: Z85.3 Personal history of malignant neoplasm of breast (principal)
CPT/HCPCS: 77065

== ENCOUNTER 2021-01-23 11:47 | Outpatient (CLI) | payer MEDICARE, SELFPAY ==
[2021-01-23 12:27] LABS: Basophils % 0.4 %; Eosinophils # 0.9 10^3/uL (0.0-0.8); Eosinophils % 8.1 %; Hematocrit 36.9 % (37.0-47.0); Hemoglobin 11.4 g/dL (11.5-15.3); Lymphocytes % 17.7 %; Mean Corpuscular HGB Conc 30.9 g/dL (30.0-36.0); Mean Corpuscular Hemoglobin 27.3 pg (28.0-34.0); Mean Corpuscular Volume 88.3 fL (81-99); Mean Platelet Volume 9.5 fL (7.4-10.4); Monocytes # 0.8 10^3/uL (0.2-0.9); Monocytes % 7.5 %; Neutrophils # 7.36 10^3/uL (1.8-7.7); Nucleated Red Blood Cells % 0 %; Platelet Count 498 10^3/cmm (130-400); Red Blood Count 4.18 10^6/uL (4.1-5.3); Red Cell Distribution Width 14.6 % (12.1-15.1); White Blood Count 11.1 10^3/uL (4.0-10.0)
[2021-01-23 12:57] LABS: Alanine Aminotransferase 8 U/L (0-33); Albumin Level 3.5 g/dL (3.5-5.2); Alkaline Phosphatase 164 IU/L (35-105); Anion Gap 10.8 (5-19); Aspartate Amino Transferase 9 U/L (0-32); Blood Urea Nitrogen 13 mg/dL (8-23); Calcium 9.3 mg/dL (8.5-10.5); Carbon Dioxide 34 mmol/L (22-29); Chloride 94 mmol/L (98-107); Globulin 3.6 g/dL (1.3-4.6); Glucose 120 mg/dL (65-115); Osmolality Calculated 281 mOsm/kg (285-295); Potassium 3.8 mmol/L (3.5-5.1); Sodium 135 mmol/L (136-145); Total Bilirubin 0.4 mg/dL (0.15-1.2); Total Protein 7.1 g/dL (6.6-8.7)
--- NOTE | 2021-02-19 11:51 | ONC FU_ITS ---
Dr. Saucedo Patient Follow-Up Note Patient: Paloma Slater Unit #: [id number]: 1940 Dicatated By: Gonzalo Saucedo M.D.Date of Visit:Jan 23, 2021 Onc Med Follow-up/Prog Note Chief Complaint: Breast cancer/osteoporosis/diabetes. History of Present Illness: This is a 80 year-old woman with grade 2 infiltrating ductal carcinoma of the right breast, stage IIIC (T2, pN3a, M0), ER positive/WA negative and HER-2/josafat positive. She had initially presented with a lump in her right axilla. Mammogram/ultrasound studies showed an upper outer quadrant breast mass as well as in enlarged right axillary lymph node. Ultrasound directed needle biopsy of the breast mass showed moderately differentiated infiltrating adenocarcinoma which was ER positive at 14% and WA negative at less than 5%. It was positive for overexpression of HER-2/josafat, 3+ by IHC and amplification ratio of 8.82 by FISH. She underwent right modified radical mastectomy in August of 2009. Pathology on the mastectomy showed grade 2 invasive ductal carcinoma measuring 2.5 cm in maximum diameter. There was involvement in 15 of 19 axillary lymph nodes. There was associated extracapsular extension. She was given adjuvant chemotherapy with 6 cycles of FEC, which she completed in February 2010. She had refused any taxanes therapy because of concerns over the risk of peripheral neuropathy. She did start Herceptin following the chemotherapy, but she was unable to tolerate it because of a hypersensitivity type reaction. She was then given adjuvant hormonal therapy with Femara, and she also started Zometa infusions every 6 months for osteoporosis. She stopped Femara in 2010 because of side effects, and she declined any further hormonal treatment. I had seen her for a follow-up visit on 07/22/2017. At that time it was noted that her alkaline phosphatase had been gradually increasing. She had evaluation with bone scan on 08/13/2017. It showed multiple areas of increased uptake felt to most likely due to arthritis. There was no evidence of metastatic bone disease. Her CT abdomen/pelvis also showed no evidence of a neoplastic process. There was evidence of extensive atherosclerotic peripheral vascular changes including an infrarenal abdominal aortic aneurysm and aneurysmal dilatation of left common iliac artery, and there was moderate appearing stenosis of the origin of the right renal artery. A sestamibi stress test in August 2018 showed mildly reduced left ventricular systolic function with estimated ejection fraction 51%. There was mild global hypokinesis. There was no evidence for coronary ischemia. An abdomen/pelvis CTA on 06/23/2019 reported unchanged infrarenal abdominal aortic aneurysm measuring 5.1 x 5.3 x 9.9 cm. Bilateral common iliac artery aneurysms appeared stable measuring 16-17 mm. There was stable severe stenosis involving the right renal artery origin. CT angiogram of the chest showed no evidence of pulmonary embolus and no acute pulmonary infiltrates. An indeterminate right axillary lymph node measured 1.7 cm. There was evidence of a slightly ectatic descending thoracic aortic aneurysm measuring 3.6 x 3.7 cm. There was no evidence of metastatic disease on either CT study. She continued on observation/expectant management for the breast cancer. Her other medical illnesses include hypertension, type 2 diabetes, and degenerative disc disease of the lumbar spine. During followup she was found to have B12 deficiency, for which she has remained on B12 replacement. She also had evidence of osteoporosis on her bone density study. She had been on treatment with Prolia, but it was stopped due to bone pain. She has a history of smoking 1/2 pack of cigarettes daily. She is seen for a followup visit. She says she has been feeling pretty good, though she has very limited activity tolerance. Her ECOG score is 2. Her appetite is variable. She does not have fever, night sweats, or hot flashes. Recently she has had sore throat. She has just occasional cough. She does not complain of shortness of breath or chest pain. She has no GI complaints other than constipation, but she is managing it adequately with the stool softener/laxative. Bladder function has been okay. She has chronic pain. The most significant is in her legs and feet. Her hands also bother her during the day. She does not complain of headache. She sometimes has dizziness. She does have numbness/tingling in her hands and feet. Medications: Adult Aspirin Regimen 81 mg (of 81 mg) Tablet, enteric coated Oral daily, Basaglar KwikPen 32 Units Subcutaneous daily, Benadryl 1 (25 mg) Tablet Oral at bedtime, Calcium + D 1 Tablet (of 315-200 mg - Units) Oral daily, Carvedilol 3.125 mg (of 3.125 mg) Tablet Oral b.i.d., GlipiZIDE 1 (5 mg) Tablet Oral daily, IBU 1 Tablet (of 200 mg) Oral PRN, Lasix 1 Tablet (of 40 mg) Oral b.i.d., Lipitor 1 (80 mg) Tablet Oral at bedtime, Lisinopril 10 mg (of 10 mg) Tablet Oral daily, oxyCODONE HCl 1 Capsule (of 5 mg) Oral four times a day PRN, Plavix 1 Tablet (of 75 mg) Oral daily, Potassium Chloride ER 1 Tablet (of 20 meq) Tablet, controlled release Oral b.i.d., tiZANidine HCl 1 Tablet (of 4 mg) Oral b.i.d. PRN Allergies: ADHESIVES, CODEINE, COMPAZINE, GLIPIZIDE, Ketoconazole, MYCINS, NEOSPORIN, PENICILLIN, and SULFA. Vital Signs: Performed on Jan 23, 2021 14:44 Height - 62.00 in Weight - 203.6 lbs (HIGH) BSA - 1.93 sq.m BMI - 37.24 (HIGH) Temperature - 97.3 F (LOW) Pulse - 88 /min Respiration - 18 /min BP - 116/67 mm(hg) O2 Sat - 90 % (LOW) Pain - 7 Physical Examination: Constitutional - She does not appear acutely ill, Eyes - Sclerae nonicteric. Conjunctivae clear, ENMT - No lesions noted in the oral cavity, Hematologic/Lymphatic - No cervical, clavicular, or axillary adenopathy, Respiratory - Lungs sound clear with diminished air movement bilaterally, Cardiovascular - Heart rhythm is irregular. There is a II/ systolic murmur. There is no gallop or rub noted, Abdomen - Mildly distended. Liver and spleen are not enlarged. There is no abdominal mass or ascites noted and there is no inguinal adenopathy, Extremities - Slight lower extremity edema. Dorsalis pedis pulses are palpable bilaterally, Neurologic - No focal neurologic deficits noted. Lab/Imaging: Test performed on Jan 23, 2021 12:05 Sodium 135 mmol/L Potassium 3.8 mmol/L Chloride 94 mmol/L CO2 34 mmol/L Anion Gap 10.8 BUN 13 mg/dL Creatinine 1.2 mg/dL Cr Clearance (Est) 56.33 mL/min Glucose 120 mg/dL Osmolality - Calculated 281 mOsm/kg Calcium 9.3 mg/dL Protein, Total 7.1 g/dL Albumin 3.5 g/dL Globulin 3.6 g/dL Bilirubin, Total 0.4 mg/dL ALT (SGPT) 8 U/L AST (SGOT) 9 U/L Alkaline Phosphatase 164 IU/L WBC 11.1 10 3/uL RBC 4.18 10 6/uL HGB 11.4 g/dL HCT 36.9 % MCV 88.3 fL MCH 27.3 pg MCHC 30.9 g/dL RDW 14.6 % Platelet Count 498 10 3/cmm MPV 9.5 fL Neutrophils 7.36 10 3/uL Lymphocytes 2.0 10 3/uL Monocytes 0.8 10 3/uL Eosinophils 0.9 10 3/uL Basophils 0.0 10 3/uL Neutrophil % 66.0 % Lymphocyte % 17.7 % Monocyte % 7.5 % Eosinophil % 8.1 % Basophils % 0.4 % NRBC % 0 % Problem List: 1. Grade 2 infiltrating ductal carcinoma of the right breast, stage IIIC, ER positive/WA negative and HER-2/josafat positive. She undewent right modified radical mastectomy in August 2009. 2. Hypertension. 3. Hyperlipidemia. 4. Type II diabetes with neuropathy. 5. Degenerative arthritis. 6. Osteoporosis. 7. B12 deficiency. 8. She underwent surgical repair of abdominal aortic aneurysm in September 2019. Problems Addressed with this Encounter and Plan: 1. Patient with grade 2 infiltrating ductal carcinoma of the right breast, stage IIIC, ER positive/WA negative and HER-2/josafat positive. She undewent right modified radical mastectomy in August 2009. She was given adjuvant chemotherapy with 6 cycles of FEC, completed in February 2010. She was not able to take Herceptin because of a hypersensitivity reaction. She was given adjuvant hormonal therapy with Femara, which she also tolerated poorly. It was stopped in 2010. She opted not to attempt any further treatment, and she was then followed expectantly. During follow-up she has continued to have limited activity tolerance and she has had chronic pain. Thus far there has been no evidence of recurrence of the breast cancer. She remains on observation/expectant management. I will see her again in 3 months. 2. Type 2 diabetes with neuropathy. At least some component of her pain does appear to be neuropathic, and it is managed symptomatically. 3. During follow-up she was found to have B12 deficiency. She remains on B12 replacement. Signed By: Gonzalo Saucedo M.D. <<Signature on File>>
== END 2021-01-23 11:48 | disposition home or self-care (01) ==
PROVIDERS: PCP Family Medicine; Visit Provider Internal Medicine Medical Oncology
DX: Z08 Encounter for follow-up examination after completed treatment for malignant neoplasm (principal); Z85.3 Personal history of malignant neoplasm of breast; E11.40 Type 2 diabetes mellitus with diabetic neuropathy, unspecified; E53.8 Deficiency of other specified B group vitamins; Z90.11 Acquired absence of right breast and nipple; Z92.23 Personal history of estrogen therapy; Z92.22 Personal history of monoclonal drug therapy; Z92.21 Personal history of antineoplastic chemotherapy
CPT/HCPCS: 36415; 80053; 85025; 99214

== ENCOUNTER 2021-01-31 06:41 | Outpatient (CLI) | payer MEDICARE, SELFPAY ==
[2021-01-31] MEDS: cyanocobalamin 1,000 mcg/mL SDV 1000 MCG SUBCUT (15:00)
== END 2021-01-31 06:42 | disposition home or self-care (01) ==
LOC: ONCMED 06:43
PROVIDERS: PCP Family Medicine; Visit Provider Nurse Practitioner
DX: D51.8 Other vitamin B12 deficiency anemias (principal); Z85.3 Personal history of malignant neoplasm of breast
CPT/HCPCS: 96372; J3420

== ENCOUNTER 2021-02-20 04:46 | Observation (INO) | payer MEDICARE, SELFPAY ==
[2021-02-20] VITALS (22 sets, daily range): BP systolic 103–163; BP diastolic 31–82; PULSE 68–95; RESP 13–20; TEMP 36.4–37.1; O2SAT 90–99; BMI 34.5
--- NOTE | 2021-02-20 04:52 | XR_ITS ---
WS: [id number] PORTABLE CHEST HISTORY: cp COMPARISON: 06/03/2019 Lungs are clear and well expanded. No pleural effusion or pneumothorax. Cardiac size: Moderately enlarged cardiac silhouette. Mediastinum/Aorta: Mild atherosclerosis aorta. No osseous abnormality seen. Partially visualized abdominal aortic stent graft. XR/XR chest 1V portable [id number] IMPRESSION: Cardiomegaly and atherosclerosis aorta. No pneumonia.
--- NOTE | 2021-02-20 04:53 | ECG_ITS ---
[facility] Test Date: 2021-02-20 Pat Name: Paloma Slater Department: Room: Gender: Female Appeals Analyst: : 1940 Requested By: Paty Mosqueda Order Number: [id number] Latisha MD: TIFFANIE SOTO Measurements Intervals [place] Rate: 74 P: -80 RI: 170 QRS: 0 QRSD: 162 T: 89 QT: 477 QTc: 530 Interpretive Statements SINUS RHYTHM WITH FREQUENT SUPRAVENTRICULAR PREMATURE COMPLEXES LEFT BUNDLE BRANCH BLOCK [120+ ms QRS DURATION, 80+ ms Q/S IN V1/V2, 85+ ms R IN I/aVL/V5/V6] INTERPRETATION BASED ON A DEFAULT AGE OF 40 YEARS Compared to ECG 01/31/2016 13:44:43 Ectopic atrial rhythm now present Left bundle-branch block now present Sinus rhythm no longer present Ventricular premature complex(es) no longer present Myocardial infarct finding no longer present Electronically Signed On 02-20-2021 20:17:46 CDT by TIFFANIE SOTO [id number] f
--- NOTE | 2021-02-20 04:55 | W.ED.NAVMDI ---
Documented by User: Paty Mosqueda MD 02/20/21 18:27 HPI - Nausea/Vomiting/Diarrhea General: Chief complaint: Nausea/Vomiting/Diarrhea Stated complaint: chest pain Time Seen by Provider: 02/20/21 04:52 Source: patient and EMS Mode of arrival: EMS Limitations: no limitations History of Present Illness: HPI Narrative: 80-year-old female who EMS was called to her residence for generalized weakness along with nausea and vomiting. Per family she had vomiting throughout the day. EMS evaluated called the STEMI alert for ST elevation in V1 through V3 on her EKG. I did review the EKG and patient has a left bundle branch block with no STEMI. They did give her 12.5 mg of Phenergan IV and she is lethargic currently. EMS states she became lethargic after the Phenergan. Denies any fever. Patient denied chest pain to EMS crew. Associated nausea: Yes Associated symtoms: Reports nausea Review of Systems General: Reports: ROS unobtainable due to mental status GI: Reports: nausea and vomiting PFS ED PFSH: Medical History (Updated 02/20/21 @ 13:32 by Esdras Castañeda MD) AAA (abdominal aortic aneurysm) Status post stent graft repair B12 deficiency Bilateral lower extremity edema Breast CA CHF (congestive heart failure) Diastolic/Systolic EF 37% 12/14 Chronic pain COPD (chronic obstructive pulmonary disease) Descending thoracic aortic 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, managed as type 2 Dyslipidemia History of nonmelanoma skin cancer History of stent insertion of renal artery HTN (hypertension) Obesity Renal artery stenosis Seasonal allergies Surgical History (Updated 02/20/21 @ 13:26 by Esdras Castañeda MD) History of aortic aneurysm repair S/P cholecystectomy S/P hysterectomy S/P mastectomy S/P tonsillectomy Family History Other Stroke Social History Smoking and tobacco status: current every day smoker cigarettes Packs smoked per day: 1 Alcohol intake: never Physical Exam Const: COMMON NORMALS: negative for patient oriented x3 GENERAL APPEARANCE: lethargic ORIENTATION/CONSCIOUSNESS: Yes lethargic HENMT: COMMON NORMALS: normocephalic and atraumatic HEAD & SCALP: normocephalic and atraumatic Eye: COMMON NORMALS: Equal, round and reactive pupils present and EOMs intact bilaterally PUPIL: Yes Equal, round and reactive pupils present Neck/C-Spine: COMMON NORMALS: full ROM and supple Chest: COMMONS NORMALS: normal inspection of the chest and normal palpation of entire chest wall Resp: COMMON NORMALS: normal respiratory effort, No retractions, No use of accessory muscles and clear to auscultation bilaterally AUSCULTATION: clear to auscultation bilaterally Cardio: COMMON NORMALS: regular rate, regular rhythm and No murmurs present (Cardio) RATE: regular rate RHYTHM: regular rhythm GI: COMMON NORMALS: Normal to inspection, nondistended, normoactive bowel sounds present, Soft to palpation, non-tender and no masses PALPATION: Yes Soft to palpation Extremity: COMMON NORMALS: normal to inspection and full ROM Neuro: COMMON NORMALS: moves all extremities and no focal motor deficits; negative for patient oriented x3 SENSORIUM/ORIENTATION: Yes lethargic Psych: COMMON NORMALS: mental status grossly normal, Normal thought process present and cooperative THOUGHT PROCESS: Normal thought process present Skin: COMMON NORMALS: no rashes or lesions noted and no wounds GENERAL SKIN EXAM: no rashes or lesions noted Course Vital Signs: Vital signs: Vital Signs Temperature 97.6 F 02/20/21 16:00 Pulse Rate 82 02/20/21 16:00 Respiratory Rate 18 02/20/21 16:00 Blood Pressure 115/70 02/20/21 16:00 Pulse Oximetry 96 02/20/21 16:00 MDM - Nausea/Vomiting/Diarrhea MDM Narrative: Medical decision making narrative: Patient presents with vomiting along with dizziness began this morning. I was unable to get good history from patient she was given Phenergan and she has been sedated from the Phenergan. Patient's pending CT scan of her abdomen head and blood work. Patient care turned over to Dr. Roth. Lab Data: Labs: Lab Results 02/20/21 02/20/21 02/20/21 Range/Units 04:55 04:55 04:55 WBC 11.9 H (4.0-10.0) 10^3/ uL RBC 4.29 (4.1-5.3) 10^6/u L Hgb 11.9 (11.5-15.3) g/dL Hct 37.9 (37.0-47.0) % MCV 88.3 (81-99) fL MCH 27.7 L (28.0-34.0) pg MCHC 31.4 (30.0-36.0) g/dL RDW 14.5 (12.1-15.1) % Plt Count 535 H (130-400) 10^3/c mm MPV 9.6 (7.4-10.4) fL Neut % (Auto) 54.6 % Lymph % (Auto) 27.0 % [place] % (Auto) 8.7 % Eos % (Auto) 9.1 % Baso % (Auto) 0.3 % Neut # (Auto) 6.52 (1.8-7.7) 10^3/u L Lymph # (Auto) 3.2 (0.8-4.8) 10^3/u L [place] # (Auto) 1.0 H (0.2-0.9) 10^3/u L Eos # (Auto) 1.1 H (0.0-0.8) 10^3/u L Baso # (Auto) 0.0 (0.0-0.1) 10^3/u L Nucleated RBC % (a uto) 0 % Nucleated RBCs # 0.0 /100WBC Sodium 140 (136-145) mmol/L Potassium 4.3 (3.5-5.1) mmol/L Chloride 97 L (98-107) mmol/L Carbon Dioxide 33 H (22-29) mmol/L Anion Gap 14.3 (5-19) BUN 24 H (8-23) mg/dL Creatinine 1.6 H (0.5-0.9) mg/dL GFR Calculation Not Reportable Glucose 82 (65-115) mg/dL POC Glucose (70-110) mg/dL Calculated Osmolal ity 293 (285-295) mOsm/k g Calcium 9.1 (8.5-10.5) mg/dL Total Bilirubin 0.3 (0.15-1.2) mg/dL AST 10 (0-32) U/L ALT 9 (0-33) U/L Alkaline Phosphata se 157 H (35-105) IU/L Troponin T Baselin e 22 H (0-10) ng/L Troponin T 120 Min [place] (0-10) ng/L Delta Troponin T (0-10) ABS# Total Protein 6.6 (6.6-8.7) g/dL Albumin 3.8 (3.5-5.2) g/dL Globulin 2.8 (1.3-4.6) g/dL Lipase 19 (13-60) U/L TSH (0.27-4.20) uIU/ mL 02/20/21 02/20/21 02/20/21 Range/Units 04:55 04:55 06:40 WBC (4.0-10.0) 10^3/ uL RBC (4.1-5.3) 10^6/u L Hgb (11.5-15.3) g/dL Hct (37.0-47.0) % MCV (81-99) fL MCH (28.0-34.0) pg MCHC (30.0-36.0) g/dL RDW (12.1-15.1) % Plt Count (130-400) 10^3/c mm MPV (7.4-10.4) fL Neut % (Auto) % Lymph % (Auto) % [place] % (Auto) % Eos % (Auto) % Baso % (Auto) % Neut # (Auto) (1.8-7.7) 10^3/u L Lymph # (Auto) (0.8-4.8) 10^3/u L [place] # (Auto) (0.2-0.9) 10^3/u L Eos # (Auto) (0.0-0.8) 10^3/u L Baso # (Auto) (0.0-0.1) 10^3/u L Nucleated RBC % (a uto) % Nucleated RBCs # /100WBC Sodium (136-145) mmol/L Potassium (3.5-5.1) mmol/L Chloride (98-107) mmol/L Carbon Dioxide (22-29) mmol/L Anion Gap (5-19) BUN (8-23) mg/dL Creatinine (0.5-0.9) mg/dL GFR Calculation Glucose (65-115) mg/dL POC Glucose 107 (70-110) mg/dL Calculated Osmolal ity (285-295) mOsm/k g Calcium (8.5-10.5) mg/dL Total Bilirubin (0.15-1.2) mg/dL AST (0-32) U/L ALT (0-33) U/L Alkaline Phosphata se (35-105) IU/L Troponin T Baselin e (0-10) ng/L Troponin T 120 Min [place] 19.51 H (0-10) ng/L Delta Troponin T -2.49 L (0-10) ABS# Total Protein (6.6-8.7) g/dL Albumin (3.5-5.2) g/dL Globulin (1.3-4.6) g/dL Lipase (13-60) U/L TSH 1.46 (0.27-4.20) uIU/ mL EKG Data^: EKG 1: Attestation: I personally reviewed and interpreted this EKG as follows: EKG interpretation date: 02/20/21 EKG interpretation time: 04:48 Interpretation: atrial rhythm hr 74 with l[address]b with no st elevation qrs 162 qtc 504 lbbb new since ekg in 2011 Discharge Plan Discharge Patient Disposition: Admitted As Inpatient Admit Provider: Esdras Castañeda Clinical Impression: CVA (cerebral vascular accident), Diabetes 1.5, managed as type 2, HTN (hypertension), COPD (chronic obstructive pulmonary disease), CHF (congestive heart failure) Condition: Stable Sign Out Sign Out Data: Patient Sign Out occurred on 02/20/21 at 06:03. Patient's care was discussed, and care was transferred from to Duran Roth DO. Coding Level of Care Code ED Systems Accountant for Chg Fwd Exam Comprehensive Documented by User: Duran Roth DO 02/20/21 10:36 HPI - Nausea/Vomiting/Diarrhea General: Chief complaint: Nausea/Vomiting/Diarrhea Stated complaint: chest pain Time Seen by Provider: 02/20/21 04:52 PFSH ED PFSH: Medical History (Updated 02/20/21 @ 13:32 by Esdras Castañeda MD) AAA (abdominal aortic aneurysm) Status post stent graft repair B12 deficiency Bilateral lower extremity edema Breast CA CHF (congestive heart failure) Diastolic/Systolic EF 37% 12/14 Chronic pain COPD (chronic obstructive pulmonary disease) Descending thoracic aortic 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, managed as type 2 Dyslipidemia History of nonmelanoma skin cancer History of stent insertion of renal artery HTN (hypertension) Obesity Renal artery stenosis Seasonal allergies Surgical History (Updated 02/20/21 @ 13:26 by Esdras Castañeda MD) History of aortic aneurysm repair S/P cholecystectomy S/P hysterectomy S/P mastectomy S/P tonsillectomy Family History Other Stroke Social History Smoking and tobacco status: current every day smoker cigarettes Packs smoked per day: 1 Alcohol intake: never Course Vital Signs: Vital signs: Vital Signs Temperature 97.6 F 02/20/21 16:00 Pulse Rate 82 02/20/21 16:00 Respiratory Rate 18 02/20/21 16:00 Blood Pressure 115/70 02/20/21 16:00 Pulse Oximetry 96 02/20/21 16:00 MDM - Nausea/Vomiting/Diarrhea MDM Narrative: Medical decision making narrative: Care assumed at change of shift from Dr. Mosqueda. Patient is reporting having change in speech and gait instability and dizziness that began 2 days ago. I suspect she may have had a stroke which is what precipitated a good portion of this. CTA of the head and neck shows extensive sclerosis and stenosis. There is an area at the origin of the right carotid that is suspicious for a soft plaque or a thrombosis however according to Dr. Reynolds it is not causing full occlusion and there is good blood flow past it. Discussed with Dr. Ulloa patient has been admitted. Lab Data: Labs: Lab Results 02/20/21 02/20/21 02/20/21 Range/Units 04:55 04:55 04:55 WBC 11.9 H (4.0-10.0) 10^3/ uL RBC 4.29 (4.1-5.3) 10^6/u L Hgb 11.9 (11.5-15.3) g/dL Hct 37.9 (37.0-47.0) % MCV 88.3 (81-99) fL MCH 27.7 L (28.0-34.0) pg MCHC 31.4 (30.0-36.0) g/dL RDW 14.5 (12.1-15.1) % Plt Count 535 H (130-400) 10^3/c mm MPV 9.6 (7.4-10.4) fL Neut % (Auto) 54.6 % Lymph % (Auto) 27.0 % [place] % (Auto) 8.7 % Eos % (Auto) 9.1 % Baso % (Auto) 0.3 % Neut # (Auto) 6.52 (1.8-7.7) 10^3/u L Lymph # (Auto) 3.2 (0.8-4.8) 10^3/u L [place] # (Auto) 1.0 H (0.2-0.9) 10^3/u L Eos # (Auto) 1.1 H (0.0-0.8) 10^3/u L Baso # (Auto) 0.0 (0.0-0.1) 10^3/u L Nucleated RBC % (a uto) 0 % Nucleated RBCs # 0.0 /100WBC Sodium 140 (136-145) mmol/L Potassium 4.3 (3.5-5.1) mmol/L Chloride 97 L (98-107) mmol/L Carbon Dioxide 33 H (22-29) mmol/L Anion Gap 14.3 (5-19) BUN 24 H (8-23) mg/dL Creatinine 1.6 H (0.5-0.9) mg/dL GFR Calculation Not Reportable Glucose 82 (65-115) mg/dL POC Glucose (70-110) mg/dL Calculated Osmolal ity 293 (285-295) mOsm/k g Calcium 9.1 (8.5-10.5) mg/dL Total Bilirubin 0.3 (0.15-1.2) mg/dL AST 10 (0-32) U/L ALT 9 (0-33) U/L Alkaline Phosphata se 157 H (35-105) IU/L Troponin T Baselin e 22 H (0-10) ng/L Troponin T 120 Min [place] (0-10) ng/L Delta Troponin T (0-10) ABS# Total Protein 6.6 (6.6-8.7) g/dL Albumin 3.8 (3.5-5.2) g/dL Globulin 2.8 (1.3-4.6) g/dL Lipase 19 (13-60) U/L TSH (0.27-4.20) uIU/ mL 02/20/21 02/20/21 02/20/21 Range/Units 04:55 04:55 06:40 WBC (4.0-10.0) 10^3/ uL RBC (4.1-5.3) 10^6/u L Hgb (11.5-15.3) g/dL Hct (37.0-47.0) % MCV (81-99) fL MCH (28.0-34.0) pg MCHC (30.0-36.0) g/dL RDW (12.1-15.1) % Plt Count (130-400) 10^3/c mm MPV (7.4-10.4) fL Neut % (Auto) % Lymph % (Auto) % [place] % (Auto) % Eos % (Auto) % Baso % (Auto) % Neut # (Auto) (1.8-7.7) 10^3/u L Lymph # (Auto) (0.8-4.8) 10^3/u L [place] # (Auto) (0.2-0.9) 10^3/u L Eos # (Auto) (0.0-0.8) 10^3/u L Baso # (Auto) (0.0-0.1) 10^3/u L Nucleated RBC % (a uto) % Nucleated RBCs # /100WBC Sodium (136-145) mmol/L Potassium (3.5-5.1) mmol/L Chloride (98-107) mmol/L Carbon Dioxide (22-29) mmol/L Anion Gap (5-19) BUN (8-23) mg/dL Creatinine (0.5-0.9) mg/dL GFR Calculation Glucose (65-115) mg/dL POC Glucose 107 (70-110) mg/dL Calculated Osmolal ity (285-295) mOsm/k g Calcium (8.5-10.5) mg/dL Total Bilirubin (0.15-1.2) mg/dL AST (0-32) U/L ALT (0-33) U/L Alkaline Phosphata se (35-105) IU/L Troponin T Baselin e (0-10) ng/L Troponin T 120 Min [place] 19.51 H (0-10) ng/L Delta Troponin T -2.49 L (0-10) ABS# Total Protein (6.6-8.7) g/dL Albumin (3.5-5.2) g/dL Globulin (1.3-4.6) g/dL Lipase (13-60) U/L TSH 1.46 (0.27-4.20) uIU/ mL Discharge Plan Discharge Patient Disposition: Admitted As Inpatient Admit Provider: Esdras Castañeda Clinical Impression: CVA (cerebral vascular accident), Diabetes 1.5, managed as type 2, HTN (hypertension), COPD (chronic obstructive pulmonary disease), CHF (congestive heart failure) Condition: Stable Sign Out Sign Out Data: Patient Sign Out occurred on 02/20/21 at 06:03. Patient's care was discussed, and care was transferred from to Duran Roth DO. Coding Level of Care Code ED Systems Accountant for Betty Fwd Exam Comprehensive
--- NOTE | 2021-02-20 04:58 | CTR_ITS ---
PROCEDURE INFORMATION: Exam: CT Head Without Contrast Exam date and time: 02/20/2021 5:01 AM Age: 80 years old Clinical indication: Altered mental status/memory loss; Confusion or disorientation; Patient HX: AMS. Confusion. N/v. TECHNIQUE: Imaging protocol: Computed tomography of the head without contrast. Radiation optimization: All CT scans at this facility use at least one of these dose optimization techniques: automated exposure control; mA and/or kV adjustment per patient size (includes targeted exams where dose is matched to clinical indication); or iterative reconstruction. COMPARISON: No relevant prior studies available. RADIATION DOSE METRICS: Total DLP (mGy-cm): 714.16 FINDINGS: Brain: There is no acute intracranial hemorrhage or mass effect. Mild diffuse volume loss is within the range of normal for patient age. There are small vessel ischemic changes within the periventricular and subcortical white matter, but the normal ortiz/white matter delineation is maintained. Cerebral ventricles: No ventriculomegaly. Bones/joints: Unremarkable. No acute fracture. Paranasal sinuses: Visualized sinuses are unremarkable. No fluid levels. Mastoid air cells: Visualized mastoid air cells are well aerated. Vasculature: There are coarse calcific atherosclerotic changes of the carotid siphons. Soft tissues: Unremarkable. CT/CT head wo con* [id number] IMPRESSION: No acute hemorrhage or edema. Radiation Dose CTDIVOL = (mGy): DLP = 714.16 (mGy-cm)
[2021-02-20 05:02] LABS: Basophils % 0.3 %; Eosinophils # 1.1 10^3/uL (0.0-0.8); Eosinophils % 9.1 %; Glucose Point of Care 107 mg/dL (70-110); Hematocrit 37.9 % (37.0-47.0); Hemoglobin 11.9 g/dL (11.5-15.3); Lymphocytes # 3.2 10^3/uL (0.8-4.8); Mean Corpuscular HGB Conc 31.4 g/dL (30.0-36.0); Mean Corpuscular Hemoglobin 27.7 pg (28.0-34.0); Mean Corpuscular Volume 88.3 fL (81-99); Mean Platelet Volume 9.6 fL (7.4-10.4); Monocytes % 8.7 %; Neutrophils # 6.52 10^3/uL (1.8-7.7); Neutrophils % 54.6 %; Nucleated Red Blood Cells % 0 %; Platelet Count 535 10^3/cmm (130-400); Red Blood Count 4.29 10^6/uL (4.1-5.3); Red Cell Distribution Width 14.5 % (12.1-15.1); White Blood Count 11.9 10^3/uL (4.0-10.0)
[2021-02-20] MEDS: sodium chloride 0.9% 500 ML IV (05:05)
--- NOTE | 2021-02-20 05:14 | CTR_ITS ---
PROCEDURE INFORMATION: Exam: CT Abdomen And Pelvis With Contrast Exam date and time: 02/20/2021 5:24 AM Age: 80 years old Clinical indication: Nausea and vomiting; Prior surgery; Surgery type: Mastectomy. Gb. Hysterectomy. Aortic graft. ; Patient HX: AMS. N/v. ; Additional info: Vomit TECHNIQUE: Imaging protocol: Computed tomography of the abdomen and pelvis with contrast. Radiation optimization: All CT scans at this facility use at least one of these dose optimization techniques: automated exposure control; mA and/or kV adjustment per patient size (includes targeted exams where dose is matched to clinical indication); or iterative reconstruction. Contrast material: VISI 320; Contrast volume: 95 ml; Contrast route: INTRAVENOUS (IV); COMPARISON: CT angio abdomen pelvis [id number] 12/01/2019 2:25 PM RADIATION DOSE METRICS: Total DLP (mGy-cm): 1246.95 FINDINGS: Heart: Mildly enlarged heart. Coronary atherosclerotic calcifications seen. No pericardial effusion. Liver: Normal. No mass. Gallbladder and bile ducts: The gallbladder has been surgically removed. Pancreas: Normal. No ductal dilation. Spleen: Normal. No splenomegaly. Adrenal glands: Normal. No mass. Kidneys and ureters: Symmetric enhancement of the kidneys. Bilateral renal vascular calcifications seen. No hydronephrosis or nephrolithiasis. Stomach and bowel: There is diverticulosis without evidence of diverticulitis. Appendix: No evidence of appendicitis. Intraperitoneal space: Unremarkable. No free air. No significant fluid collection. Vasculature: Severe diffuse atherosclerotic disease is present. The patient is status post aorta bi-iliac stent graft repair of infrarenal abdominal aortic aneurysm. No endoleak identified. There is aneurysmal dilatation of the distal descending aorta, measuring up to 3.9 cm in diameter. Lymph nodes: Unremarkable. No enlarged lymph nodes. Urinary bladder: Unremarkable as visualized. Reproductive: The uterus is surgically absent. Bones/joints: Degenerative changes of the spine seen. Soft tissues: The patient is status post right mastectomy. CT/CT abdomen pelvis w con* [id number] IMPRESSION: No acute intra-abdominal or intrapelvic pathology. Radiation Dose CTDIVOL = (mGy): DLP = 1246.95 (mGy-cm)
[2021-02-20 05:23] LABS: Alanine Aminotransferase 9 U/L (0-33); Albumin Level 3.8 g/dL (3.5-5.2); Alkaline Phosphatase 157 IU/L (35-105); Anion Gap 14.3 (5-19); Aspartate Amino Transferase 10 U/L (0-32); Blood Urea Nitrogen 24 mg/dL (8-23); Calcium 9.1 mg/dL (8.5-10.5); Carbon Dioxide 33 mmol/L (22-29); Chloride 97 mmol/L (98-107); Globulin 2.8 g/dL (1.3-4.6); Glucose 82 mg/dL (65-115); Lipase 19 U/L (13-60); Osmolality Calculated 293 mOsm/kg (285-295); Potassium 4.3 mmol/L (3.5-5.1); Sodium 140 mmol/L (136-145); Total Bilirubin 0.3 mg/dL (0.15-1.2); Total Protein 6.6 g/dL (6.6-8.7)
[2021-02-20] MEDS: iodixanol 320 mg/mL 100mL Btl IV ×2 (05:25→07:55)
[2021-02-20 05:26] LABS: Troponin(5th) Baseline 22 ng/L (0-10)
[2021-02-20] MEDS: sodium chloride 0.9% 500 ML 999 ML IV (06:33)
--- NOTE | 2021-02-20 06:53 | ECG_ITS ---
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: : 1940 Requested By: Paty Mosqueda Order Number: [id number] Latisha MD: TIFFANIE SOTO Measurements Intervals [place] Rate: 75 P: 65 VT: 251 QRS: 36 QRSD: 152 T: 56 QT: 468 QTc: 524 Interpretive Statements SINUS RHYTHM WITH FIRST DEGREE AV BLOCK WITH FREQUENT SUPRAVENTRICULAR PREMATURE COMPLEXES LEFT BUNDLE BRANCH BLOCK [120+ ms QRS DURATION, 80+ ms Q/S IN V1/V2, 85+ ms R IN I/aVL/V5/V6] Compared to ECG 01/31/2016 13:44:43 First degree AV block now present Left bundle-branch block now present Ventricular premature complex(es) no longer present Myocardial infarct finding no longer present Electronically Signed On 02-20-2021 20:18:52 CDT by TIFFANIE SOTO [id number]
[2021-02-20 07:08] LABS: Troponin 5 2HR 19.51 ng/L (0-10)
[2021-02-20 07:09] LABS: Troponin 5 2HR Delta -2.49 ABS# (0-10)
--- NOTE | 2021-02-20 07:15 | CT_ITS ---
WS: [id number] CT ANGIOGRAM CEREBRAL AND CAROTID ARTERIES HISTORY: slurred speech, gait disturbance, dizziness TECHNIQUE: CT angiogram is performed of the carotid and cerebral arteries. During arterial injection imaging is obtained from the skull vertex to the aortic arch in 1.25 mm imaging. Coronal and sagittal reformats are submitted. Additional multi planar reformats of the carotid and cerebral arteries are submitted, MIP imaging also reviewed. NASCET criteria utilized. All CT scans at [facility] use at least one of these dose optimization techniques: automated exposure control; mA and/or kV ad justment per patient size (includes targeted exams where dose is matched to clinical indication); or iterative reconstruction. CONTRAST: Visipaque 320; 95 mL IV. DLP: 2423.87 mGy.cm COMPARISON: None available. Carotid Angiogram: Right carotid: Common carotid artery: Short segment thrombus in the proximal RIGHT common carotid artery. Thrombus i s at the junction of the innominate with RIGHT subclavian and carotid artery. There is intimal [place] throughout the proximal RIGHT common carotid artery. High-grade stenosis with calcified plaque a nd intimal thickening at the bifurcation. Stenosis calculated at 84%. Internal carotid artery: High-grade stenosis at the bifurcation. External carotid artery: Patent. Left carotid: Common carotid artery: Atherosclerotic plaque at the origin with no high-grade stenosis. There is a s mall amount of noncalcified plaque. Internal carotid artery: Complete occlusion of the proximal LEFT ICA. External carotid artery: Patent. Right vertebral artery: Multifocal areas of scattered calcified plaque. Greater than 50% stenosis in the RIGHT C5 transverse foramina. Left vertebral artery: Multifocal areas of calcified plaque. Stenosis 50% at the C5-C6 transverse for jaqueline. Subclavian arteries: Atherosclerotic plaque in the proximal subclavian arteries. No occlusions or hig h-grade stenosis appreciated. Study is limited by motion. Upper thorax: Extensive atherosclerotic plaque within the aortic arch. Thyroid gland: Normal. Osseous structures: Severe cervical spondylosis. CEREBRAL ANGIOGRAM: Intracranial vertebral arteries: Scattered plaque. No high-grade stenosis or occlusion. Basilar artery: No significant stenosis or occlusion. No aneurysm. Intracranial Internal carotid arteries: None occlusion of the LEFT common carotid artery. Focal areas of plaque throughout the RIGHT ICA with moderate to severe stenosis of the cavernous sinuses and sup raclinoid carotid artery. Middle cerebral arteries: Mild atherosclerosis. No occlusions. Anterior cerebral arteries and ACOM: Normal. Posterior cerebral arteries and PCOM's: Normal. Dural venous sinuses are normally enhancing. Mastoid air cells: Normal. Paranasal sinuses: Normal. Calvarium: Normal. CT/CT angio headneck* [id number] IMPRESSION: 1. Complete occlusion LEFT extracranial ICA. 2. High-grade stenosis RIGHT extracranial ICA, 84%. 3. Bilateral vertebral artery stenosis greater than 50% in the transverse fora men near C5-6. 4. Advanced atherosclerotic plaque within the intracranial carotid arteries bi laterally. Occluded LEFT intracranial ICA and high-grade stenoses RIGHT intracr anial ICA. 5. Focal thrombus with near occlusion near the junction of the RIGHT innominat e with the subclavian and common carotid artery.
[2021-02-20] MEDS: aspirin 81 mg Chew Tablet PO (10:29)
[2021-02-20] MEDS: atorvastatin 40 mg Tablet PO (10:29)
[2021-02-20] MEDS: clopidogrel 75 mg Tablet PO (10:29)
[2021-02-20] MEDS: sodium chloride 0.9% 1,000 ML 125 ML IV ×2 (10:30→17:27)
[2021-02-20 11:28] LABS: Troponin 5 6HR 19.23 ng/L (0-10)
[2021-02-20 11:30] LABS: Troponin 5 6HR Delta -2.77 ng/L (0-12)
--- NOTE | 2021-02-20 12:25 | PC.CHAP ---
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 [] Patient/Family/Request visit [] Outpatient visit [] Follow-up visit [] Physician referral [] Code/Alert [x] Routine visit [] Staff referral [] Actively dying [x] Patient sleeping [] Family support [] [] Out of room [] Palliative care [] [] Receiving care in room [] Pre-surgical visit [] Trauma [] Long length of stay [] ICU visit [] Other: Relational/Emotional Strength [] Patient feels connected with others/family/visitors/staff [] Distress [] Loneliness/isolation [] Abandonment Spirituality of Patient [] Person of Fidelina [] Attends Catholic of their Fidelina [] Believes in Prayer [] Reads Bible or Yazidi materials [] There are Spiritual issues to be addressed 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 Interventions [] Prayer [] Active listening [] Non-anxious presence [] Spiritual/emotional support [] Crisis/trauma care [] Spiritual counseling [] Bereavement support [] Provided bereavement packet [] Provided Bible/devotional materials [] Provided toy/stuffed animal, coloring book to patient or family member [] Provided Communion [] Anointing/[place] [] Salvation [] Completed spiritual assessment [] Other: Impact on Illness or Injury [] Angry [] Fearful [] Anxious [] Often cries [] Exhaustion [] Unable to work [] Unable to attend amish [] Unable to walk/stand [] Unable to read [] Unable to drive [] Unable to eat/drink [] Unable to sleep [] Unable to be with family [] Patient intubated [] Other: Summary Time spent with patient
[2021-02-20 12:49] LABS: Add Urine Culture? Yes; Bacteria Urine 2+ /hpf; Bilirubin Urine Neg (Negative); Blood Urine Neg (Negative); Glucose Urine UA Norm (Normal); Ketones Urine Negative (Negative); Leukocyte Esterase Urine Trace (Negative); Nitrate Urine Positive (Negative); Protein Urine Neg (Negative); Squamous Epithelial Cell Urine 0-4 /hpf (0-5); Urine Appearance Hazy (CLEAR); Urine Color Yellow (Yellow); Urobilinogen Urine Norm (Negative); WBC Urine 15-25 /hpf (0-5); pH Urine 5 (5-7)
--- NOTE | 2021-02-20 13:21 | PM.HP ---
Providers/Chief Complaint Admitting Physician: Esdras Castañeda MD Primary Care Provider: Patti Irwin DO Chief Complaint: chest pain History of Present Illness Paloma Slater is a 80 year old female who presents to the emergency department for generalized weakness, and vomiting. Apparently she had some onset of symptoms yesterday after a . While driving home around 430 she was very sleepy and had some difficulty staying on the road. Daughter took over and drove the rest of the way home. This morning, she started vomiting. Patient herself denies any chest discomfort to me. She states she is very sleepy. She had a headache as well yesterday but not today. She has not had any fevers, cough. She did have some shortness of breath with the vomiting. While in route she got some Phenergan, and in the emergency department she apparently had significant sleepiness as well as some slurred speech. On arrival to the emergency department there was some concern about an ST elevation myocardial infarction, but on further review of the EKG this demonstrated only left bundle branch block. Currently repeat patient reports she is getting more back to normal. She states she is sleepy but this is not unusual when she has her nights and days mixed up. She denies any nausea currently. Blood sugar was not checked yesterday when the patient was having symptoms. Review of Systems General: Reports: 10 or more systems reviewed and unremarkable except in HPI and below Const: Reports: fatigue and malaise; Denies: fever(s) or chills Eyes: Denies: change in vision ENMT: Denies: throat pain Card: Denies: chest pain Resp: Reports: dyspnea GI: Reports: nausea and vomiting; Denies: abdominal pain : Denies: flank pain Musc: Denies: neck pain Skin/Breast: Denies: rash Neuro: Reports: headache(s) Psych: Denies: anxiety Endo: Denies: polyuria Leonardo/Lymph: Denies: easy bruising All/Imm: Denies: urticaria Medications/Allergies Home Medications Medication Instructions Recorded Confirmed Last Taken Type aspirin 81 mg tablet,delayed 81 mg PO DAILY 01/24/20 02/20/21 02/19/21 History release montelukast 10 mg tablet 10 mg PO DAILY 01/24/20 02/20/21 02/19/21 History clopidogrel 75 mg tablet 75 mg PO DAILY 90 Days #90 tab 05/29/20 03/30/21 03/29/21 Rx atorvastatin 80 mg tablet 80 mg PO DAILY #30 tab 07/28/20 02/20/21 02/19/21 Rx loratadine 10 mg tablet 10 mg PO DAILY #30 tab 11/02/20 02/20/21 02/19/21 Rx potassium chloride 10 mEq 20 meq PO DAILY #180 tab 11/02/20 02/20/21 02/19/21 Rx tablet,extended release(part/cryst) insulin glargine 100 unit/mL (3 28 unit SUBCUT DAILY #15 ml 12/13/20 02/20/21 02/19/21 Rx mL) subcutaneous pen pen needle, diabetic 32 gauge x #100 ea 12/28/20 02/20/21 Unknown Rx lisinopril 10 mg tablet 10 mg PO DAILY #90 tab 01/01/21 02/20/21 02/19/21 Rx furosemide 40 mg tablet 80 mg PO DAILY #180 tab 01/02/21 02/20/21 02/19/21 Rx glipizide 5 mg tablet, extended 5 mg PO DAILY #30 tab 01/25/21 02/20/21 02/19/21 Rx release 24 hr carvedilol 3.125 mg PO BID 02/20/21 02/20/21 02/19/21 History oxycodone 10 mg PO QID PRN 02/20/21 02/20/21 Unknown History Allergies Allergy/AdvReac Type Severity Reaction Status Date / Time adhesive tape Allergy Unknown Unknown Verified 02/20/21 04:53 bacitracin Allergy Unknown Unknown Verified 02/20/21 04:53 [From Neosporin ([id number])] codeine Allergy Unknown Unknown Verified 02/20/21 04:53 neomycin Allergy Unknown Unknown Verified 02/20/21 04:53 [From Neosporin ([id number])] penicillamine Allergy Unknown Unknown Verified 02/20/21 04:53 Penicillins Allergy Unknown Unknown Verified 02/20/21 04:53 polymyxin B Allergy Unknown Unknown Verified 02/20/21 04:53 [From Neosporin ([id number])] prochlorperazine Allergy Unknown Unknown Verified 02/20/21 04:53 [From Compazine] Sulfa (Sulfonamide Allergy Unknown Unknown Verified 02/20/21 04:53 Antibiotics) PFSH Acute PFSH: Medical History (Updated 02/20/21 @ 13:32 by Esdras Castañeda MD) AAA (abdominal aortic aneurysm) Status post stent graft repair B12 deficiency Bilateral lower extremity edema Breast CA CHF (congestive heart failure) Diastolic/Systolic EF 37% 12/14 Chronic pain COPD (chronic obstructive pulmonary disease) Descending thoracic aortic 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, managed as type 2 Dyslipidemia History of nonmelanoma skin cancer History of stent insertion of renal artery HTN (hypertension) Obesity Renal artery stenosis Seasonal allergies Surgical History (Updated 02/20/21 @ 13:26 by Esdras Castañeda MD) History of aortic aneurysm repair S/P cholecystectomy S/P hysterectomy S/P mastectomy S/P tonsillectomy Family History Other Stroke Social History Smoking and tobacco status: current every day smoker cigarettes Packs smoked per day: 1 Alcohol intake: never Vitals/I&O/Wt Last Vital Signs Temp 98.7 F 02/20/21 12:00 Pulse 89 02/20/21 12:00 Resp 20 H 02/20/21 12:00 BP 112/58 02/20/21 12:00 Pulse Ox 96 02/20/21 12:00 02/19/21 02/20/21 02/20/21 22:59 06:59 14:59 Intake Total 1000 / 1000 Balance 1000 / 1000 Weight last 48 hrs Weight 88.451 kg Physical Exam Narrative: EXAM NARRATIVE: General exam is a sleepy white female, who answers questions appropriately and no obvious slurring of speech currently. Neurologic: No obvious focal deficits. Cerebellar function intact HEENT: Pupils equally round. Oropharynx clear. Neck is supple no lymphadenopathy or thyromegaly Cardiovascular regular rate and rhythm, no murmur Lungs clear no wheezing or crackles Abdomen is soft with positive bowel sounds. No obvious organomegaly was deferred Extremities no cyanosis clubbing or edema, cap refill brisk Skin no rash Data : 02/20/21 04:55 02/20/21 04:55 Other data: EKG demonstrates left bundle branch block, normal sinus rhythm, PVCs are noted. LFTs normal Calcium 9.1 Troponin XX 2 with repeat 19 Lipase 19 Urinalysis demonstrates 15-25 white cells, no red cells 2+ bacteria and positive nitrites CTA head and neck demonstrated complete occlusion of left extracranial ICA, high-grade stenosis right ICA, bilateral vertebral stenosis greater than 50%, occluded left intracranial ICA and high-grade stenosis right intracranial ICA Focal thrombus with near occlusion near the junction of right innominate with the subclavian and common carotid Abdominal pelvis CT demonstrates no acute findings Head CT no hemorrhage Chest x-ray reviewed demonstrates cardiomegaly, atherosclerosis, no infiltrate A&P Assessment and plan (1) Acute kidney injury: Hydration Hold REENA inhibitor, diuretics Note she received radiological dye Status: Acute (2) Lethargy: Multiple concerns have arisen regarding this. There was some concern she may have had a stroke. Noncontrast CT demonstrated no hemorrhage. MRI cannot be done secondary to clips used for her aortic aneurysm repair according to MRI. Currently symptomatology has nearly completely resolved. Continue Plavix that was started in the emergency department as well as aspirin. Continue high-dose statin. Secondary to her significant atherosclerotic burden may benefit from evaluation by neurology and/or vascular surgery in the future. Lethargy and symptomatology could have also been due to another cause. Could not rule out hypoglycemia yesterday. Note that her blood sugar was 82 this morning. Worsening renal function could have played a role. Will need to evaluate with ammonia level, as well as ABG to rule out hypercarbia. Also cannot rule out effective pain medicine as she is on chronic narcotics. We will reduce her dose of oxycodone while in the hospital. Check orthostatic blood pressures while in the hospital. Phenergan she received in route for nausea and vomiting may have also made her lethargic. Telemetry. PT evaluation as there was some concern with CVA on admission. Status: Acute (3) UTI (urinary tract infection): Ceftriaxone Urine culture Status: Acute (4) Carotid artery disease: See notations above Status: Acute (5) Nicotine dependence, cigarettes, with unspecified nicotine-induced disorders: Counseled on abstinence Status: Chronic Additional A&P Information Type 2 diabetes, continue home dose long-acting insulin lower dose and mild sliding scale insulin CHF with history of low EF at 37%. Monitor for fluid overload while holding REENA inhibitor and diuretics secondary to renal dysfunction Chronic pain, reduce chronic pain medicine secondary to lethargy Multiple other medical problems as outlined in past medical history. Could also benefit from evaluation for sleep apnea in the future. Full code Lovenox for DVT prophylaxis Overall it is likely with continued patient improvement, and correction of renal dysfunction she may need less than 2 midnight stay. Observation. Attestations Medical Necessity Statement*: Will need less than 2 midnight stay for evaluation and treatment of lethargy, UTI, mental status change, acute kidney injury Coding Level of Care Code Acute Accounts Payable Accountant for [facility] Fwd Diagnoses Acute kidney injury N17.9 Lethargy R53.83 UTI (urinary tract infection) N39.0 Carotid artery disease I77.9 Nicotine dependence, cigarettes, with unspecified nicotine-induced disorders F17.219
[2021-02-20 14:00] LABS: Thyroid Stimulating Hormone 1.46 uIU/mL (0.27-4.20)
[2021-02-20] MEDS: cefTRIAXone 1,000 MG in sodium chloride 0.9% (plus) 50 ML 100 MG IV (14:19)
[2021-02-20 14:24] LABS: ABG PCO2 56.8 mmHg (35-45); ABG PH Result 7.38 (7.35-7.45); Arterial Blood Gas Hematocrit 35.5 % (37-47); Base Excess ABG 6.9 mmol/L (-2.0-2.0); Blood Gas Allen Test Pos; Blood Gas Sample Site Radial, right; Blood Gas Sample Type Arterial; HCO3 ABG 33.5 mmol/L (22-26); Oxygen Device ROOM AIR
[2021-02-20 14:30] LABS: Ammonia 39 umol/L (11-51)
[2021-02-20 17:13] LABS: Glucose Point of Care 139 mg/dL (70-110)
[2021-02-20] MEDS: heparin 5,000 unit/mL INJ 1 mL 5000 UNIT SUBCUT (17:27)
[2021-02-20 20:14] LABS: Glucose Point of Care 233 mg/dL (70-110)
[2021-02-20] MEDS: carvedilol 3.125 mg Tablet PO (21:58)
[2021-02-21] VITALS (8 sets, daily range): BP systolic 101–165; BP diastolic 71–80; PULSE 72–97; RESP 16–20; TEMP 36.6–36.8; O2SAT 92–98
[2021-02-21] MEDS: heparin 5,000 unit/mL INJ 1 mL 5000 UNIT SUBCUT (03:55)
[2021-02-21] MEDS: oxyCODONE 5 mg IR Tab/Cap PO ×2 (04:48→05:18)
[2021-02-21 05:28] LABS: Basophils % 0.3 %; Eosinophils # 0.7 10^3/uL (0.0-0.8); Eosinophils % 7.3 %; Hemoglobin 10.3 g/dL (11.5-15.3); Lymphocytes % 19.9 %; Mean Corpuscular HGB Conc 31.2 g/dL (30.0-36.0); Mean Corpuscular Hemoglobin 27.5 pg (28.0-34.0); Mean Corpuscular Volume 88.2 fL (81-99); Mean Platelet Volume 9.7 fL (7.4-10.4); Monocytes # 0.8 10^3/uL (0.2-0.9); Monocytes % 7.7 %; Neutrophils # 6.32 10^3/uL (1.8-7.7); Neutrophils % 64.5 %; Nucleated Red Blood Cells % 0 %; Platelet Count 438 10^3/cmm (130-400); Red Blood Count 3.74 10^6/uL (4.1-5.3); Red Cell Distribution Width 14.4 % (12.1-15.1); White Blood Count 9.8 10^3/uL (4.0-10.0)
[2021-02-21 05:46] LABS: Alanine Aminotransferase 7 U/L (0-33); Albumin Level 3.3 g/dL (3.5-5.2); Alkaline Phosphatase 136 IU/L (35-105); Aspartate Amino Transferase 10 U/L (0-32); Blood Urea Nitrogen 19 mg/dL (8-23); Calcium 8.4 mg/dL (8.5-10.5); Carbon Dioxide 29 mmol/L (22-29); Chloride 104 mmol/L (98-107); Globulin 3.1 g/dL (1.3-4.6); Glucose 122 mg/dL (65-115); Osmolality Calculated 294 mOsm/kg (285-295); Sodium 140 mmol/L (136-145); Total Bilirubin 0.2 mg/dL (0.15-1.2); Total Protein 6.4 g/dL (6.6-8.7)
[2021-02-21 05:49] LABS: Anion Gap 11.4 (5-19); Potassium 4.4 mmol/L (3.5-5.1)
[2021-02-21 07:06] LABS: Glucose Point of Care 131 mg/dL (70-110)
--- NOTE | 2021-02-21 09:12 | PM.DCS ---
Discharge Providers Date of Admission: 02/20/21 07:41 Date of Discharge: February 21, 2021 Attending Provider at Admission: Esdras Castañeda MD Attending Provider at Discharge: Esdras Castañeda MD Primary Care Provider: Patti Irwin DO Diagnoses at Discharge Discharge Diagnosis (1) Acute kidney injury: Status: Acute (2) Lethargy: Status: Acute (3) UTI (urinary tract infection): Status: Acute (4) Carotid artery disease: Status: Acute (5) Nicotine dependence, cigarettes, with unspecified nicotine-induced disorders: Status: Chronic Reason for Visit Reason for Visit: chest pain Hospital Course Hospital Course Paloma is a 80-year-old white female who presented to the hospital for generalized weakness, vomiting. She also had some significant sleepiness. Originally there was concern regarding ST elevation myocardial infarction which was determined later to be a left bundle branch block. There is also concern for possible stroke for which CT head and CTA was performed. She had received Phenergan prior to arrival. She was ultimately admitted with acute kidney injury. Secondary to her lethargy and abnormal CTA findings MRI was contemplated but was not performed as was contraindicated with clips that were used during then aortic aneurysm repair. During her hospitalization she had complete resolution of headache, vomiting, and lethargy. She was rehydrated and diuretics and REENA inhibitor were held and renal function returned to normal the following day. UTI it was diagnosed and she was placed on Rocephin. As her mental status was normal, she had no neurologic deficits, renal function had returned to baseline with a creatinine of 1.2 it was thought she could be discharged home. She will finish up a course of antibiotics for UTI. I discussed in depth with her as well as her daughter's her significant findings on CTA demonstrating bilateral carotid artery disease, mainly intracranial, innominate and subclavian disease, vertebrobasilar disease. She will be discharged on high-dose statin, Plavix, and aspirin. I discussed her case briefly with vascular surgery here and they recommended referral to larger center who could potentially do stenting for her carotid artery vasculature. I discussed this in detail with the family as well. She was instructed not to drive until cleared by her primary care provider. Multiple medications were adjusted including lower dose of Lasix, discontinuation of oral sulfonylurea as hypoglycemia could not be ruled out(blood sugar 84 on presentation which is atypical), and discontinuation of REENA inhibitor secondary to renal failure. This will require review again by her primary care provider. Physical Exam Narrative: EXAM NARRATIVE: General exam no apparent distress Cardiovascular regular rate and rhythm without murmur Lungs clear Abdomen is soft with positive bowel sounds. No obvious organomegaly Extremities trace edema Discharge Data Data Completed and Pending: Completed Studies During Hospitalization Category Date Time Status CT abdomen pelvis w con* [id number] Urge nt Cat Scan 02/20/21 05:[address] angio headneck * [id number] Stat Cat Scan 02/20/21 07:[address] head wo con* [id number] Urgent Cat Scan 02/20/21 04:58 Completed XR chest 1V katie ble [id number] Urgent Exams 02/20/21 04:52 Completed Pending at discharge Category Date Time Status Urine Culture [facility] 02/20/21 12:20 Results Labs from last 24 hours 02/21/21 02/21/21 02/21/21 07:03 05:20 05:20 WBC 9.8 RBC 3.74 L Hgb 10.3 L Hct 33.0 L MCV 88.2 MCH 27.5 L MCHC 31.2 RDW 14.4 Plt Count 438 H MPV 9.7 Neut % (Auto) 64.5 Lymph % (Auto) 19.9 [place] % (Auto) 7.7 Eos % (Auto) 7.3 Baso % (Auto) 0.3 Neut # (Auto) 6.32 Lymph # (Auto) 2.0 [place] # (Auto) 0.8 Eos # (Auto) 0.7 Baso # (Auto) 0.0 Nucleated RBC % (a uto) 0 Nucleated RBCs # 0.0 Specimen Type Sample Site ABG pH ABG pCO2 ABG pO2 ABG HCO3 ABG Base Excess Carlos Alberto Test Hematocrit O2 Delivery Device Refrigerating Technician ID Sodium 140 Potassium 4.4 Chloride 104 Carbon Dioxide 29 Anion Gap 11.4 BUN 19 Creatinine 1.2 H GFR Calculation Not Reportable Glucose 122 H POC Glucose 131 H Calculated Osmolal ity 294 Calcium 8.4 L Total Bilirubin 0.2 AST 10 ALT 7 Alkaline Phosphata se 136 H Ammonia Troponin T Hi Sens 6Hr Troponin T Hi Sens 6Hr Delta Total Protein 6.4 L Albumin 3.3 L Globulin 3.1 TSH Urine Color Urine Appearance Urine pH Ur Specific Gravit y Urine Protein Urine Glucose (UA) Urine Ketones Urine Blood Urine Nitrate Urine Bilirubin Urine Urobilinogen Ur Leukocyte Nickie ase Urine RBC Urine WBC Ur Squamous Epith Cells Amorphous Sediment Urine Bacteria 02/20/21 02/20/21 02/20/21 20:11 17:10 14:13 WBC RBC Hgb Hct MCV MCH MCHC RDW Plt Count MPV Neut % (Auto) Lymph % (Auto) [place] % (Auto) Eos % (Auto) Baso % (Auto) Neut # (Auto) Lymph # (Auto) [place] # (Auto) Eos # (Auto) Baso # (Auto) Nucleated RBC % (a uto) Nucleated RBCs # Specimen Type Arterial Sample Site Radial, right ABG pH 7.38 ABG pCO2 56.8 H ABG pO2 51.0 L ABG HCO3 33.5 H ABG Base Excess 6.9 H Carlos Alberto Test Pos Hematocrit 35.5 L O2 Delivery Device Room air Refrigerating Technician ID jmn Sodium Potassium Chloride Carbon Dioxide Anion Gap BUN Creatinine GFR Calculation Glucose POC Glucose 233 H 139 H Calculated Osmolal ity Calcium Total Bilirubin AST ALT Alkaline Phosphata se Ammonia Troponin T Hi Sens 6Hr Troponin T Hi Sens 6Hr Delta Total Protein Albumin Globulin TSH Urine Color Urine Appearance Urine pH Ur Specific Gravit y Urine Protein Urine Glucose (UA) Urine Ketones Urine Blood Urine Nitrate Urine Bilirubin Urine Urobilinogen Ur Leukocyte Nickie ase Urine RBC Urine WBC Ur Squamous Epith Cells Amorphous Sediment Urine Bacteria 02/20/21 02/20/21 02/20/21 13:50 12:20 10:50 WBC RBC Hgb Hct MCV MCH MCHC RDW Plt Count MPV Neut % (Auto) Lymph % (Auto) [place] % (Auto) Eos % (Auto) Baso % (Auto) Neut # (Auto) Lymph # (Auto) [place] # (Auto) Eos # (Auto) Baso # (Auto) Nucleated RBC % (a uto) Nucleated RBCs # Specimen Type Sample Site ABG pH ABG pCO2 ABG pO2 ABG HCO3 ABG Base Excess Carlos Alberto Test Hematocrit O2 Delivery Device Refrigerating Technician ID Sodium Potassium Chloride Carbon Dioxide Anion Gap BUN Creatinine GFR Calculation Glucose POC Glucose Calculated Osmolal ity Calcium Total Bilirubin AST ALT Alkaline Phosphata se Ammonia 39 Troponin T Hi Sens 6Hr 19.23 H Troponin T Hi Sens 6Hr Delta -2.77 L Total Protein Albumin Globulin TSH Urine Color Yellow Urine Appearance Hazy A Urine pH 5 Ur Specific Gravit y 1.010 Urine Protein Neg Urine Glucose (UA) Norm Urine Ketones Negative Urine Blood Neg Urine Nitrate Positive H Urine Bilirubin Neg Urine Urobilinogen Norm Ur Leukocyte Nickie ase Trace H Urine RBC None Urine WBC 15-25 H Ur Squamous Epith Cells 0-4 H Amorphous Sediment Not Reportable Urine Bacteria 2+ H 02/20/21 04:55 WBC RBC Hgb Hct MCV MCH MCHC RDW Plt Count MPV Neut % (Auto) Lymph % (Auto) [place] % (Auto) Eos % (Auto) Baso % (Auto) Neut # (Auto) Lymph # (Auto) [place] # (Auto) Eos # (Auto) Baso # (Auto) Nucleated RBC % (a uto) Nucleated RBCs # Specimen Type Sample Site ABG pH ABG pCO2 ABG pO2 ABG HCO3 ABG Base Excess Carlos Alberto Test Hematocrit O2 Delivery Device Refrigerating Technician ID Sodium Potassium Chloride Carbon Dioxide Anion Gap BUN Creatinine GFR Calculation Glucose POC Glucose Calculated Osmolal ity Calcium Total Bilirubin AST ALT Alkaline Phosphata se Ammonia Troponin T Hi Sens 6Hr Troponin T Hi Sens 6Hr Delta Total Protein Albumin Globulin TSH 1.46 Urine Color Urine Appearance Urine pH Ur Specific Gravit y Urine Protein Urine Glucose (UA) Urine Ketones Urine Blood Urine Nitrate Urine Bilirubin Urine Urobilinogen Ur Leukocyte Nickie ase Urine RBC Urine WBC Ur Squamous Epith Cells Amorphous Sediment Urine Bacteria Vitals: Last Vital Signs Temp 97.9 F 02/21/21 08:00 Pulse 77 02/21/21 08:00 Resp 18 02/21/21 08:00 BP 148/71 02/21/21 08:00 Pulse Ox 93 02/21/21 08:00 Discharge Plan Discharge Patient Disposition: Home Condition: Stable Prescriptions: New furosemide 20 mg Tablet 60 mg PO DAILY@0800 Qty: 90 RF: 0 pantoprazole 40 mg Tablet,Delayed Release (Dr/Ec) 40 mg PO DAILY Qty: 30 RF: 0 aspirin 325 mg tablet 325 mg PO DAILY Qty: 30 RF: 0 cefdinir 300 mg capsule 300 mg PO BID 5 Days Qty: 10 RF: 0 Continued montelukast [Singulair] 10 mg tablet 10 mg PO DAILY RF: 0 clopidogrel 75 mg tablet 75 mg PO DAILY 90 Days Qty: 90 RF: 3 atorvastatin 80 mg tablet 80 mg PO DAILY Qty: 30 RF: 6 potassium chloride 10 mEq tablet,ER particles/crystals 20 meq PO DAILY Qty: 180 RF: 3 loratadine 10 mg tablet 10 mg PO DAILY Qty: 30 RF: 5 Lantus Solostar U-100 Insulin 100 unit/mL (3 mL) insulin pen 28 unit SUBCUT DAILY Qty: 15 RF: 5 (DME) pen needle, diabetic [Microdot Insulin Pen Needle] 32 gauge x 5/32 needle See Rx Instructions .ROUTE .MEDSUPPLY Qty: 100 RF: 4 carvedilol 3.125 mg Tablet 3.125 mg PO BID RF: 0 oxycodone 10 mg tablet 10 mg PO QID PRN (Reason: Pain) RF: 0 Discontinued aspirin [Aspir-81] 81 mg tablet,delayed release (DR/EC) 81 mg PO DAILY RF: 0 lisinopril 10 mg tablet 10 mg PO DAILY Qty: 90 RF: 1 furosemide 40 mg tablet 80 mg PO DAILY Qty: 180 RF: 3 glipizide 5 mg tablet extended release 24hr 5 mg PO DAILY Qty: 30 RF: 3 Discharge Orders: Discharge Order (Routine); Ordered 02/21/21 Ordered By: Esdras Castañeda Referrals: Dr. Jaguar Mcdowell [Other] (Dr. Mcdowell's office should be calling you with an appointment time. If you do not hear from them by Friday afternoon, please call them to follow up. We recommend that you see him within 2-3weeks. ) Patti Irwin, [Primary Care Provider] - 03/05/21 10:15 am (CBC and BMP on follow-up) Discharge Diet: Cardiac and Diabetic Discharge Activity: Increase activity as tolerated Patient Instructions: Acute Kidney Injury (DC), Urinary Tract Infection in Women (DC) Activity Restrictions/Additional Instructions: No smoking. No driving until evaluation by PCP Take all meds as prescribed. Arrange followup with Dr. Jeremias Barahona vascular surgery in 2-3 weeks, carotid artery disease Discharge Attestations Time Spent in Discharge Care*: greater than 30 min Quality Metrics Clinical Quality Measures During this hospital stay, did patient experience: None Coding Level of Care Code Acute Chg FW DC note Diagnoses Acute kidney injury N17.9 Lethargy R53.83 UTI (urinary tract infection) N39.0 Carotid artery disease I77.9 Nicotine dependence, cigarettes, with unspecified nicotine-induced disorders F17.219
[2021-02-21] MEDS: aspirin 81 mg Chew Tablet PO (10:32)
[2021-02-21] MEDS: pantoprazole DR 40 mg Tablet PO (10:32)
[2021-02-21] MEDS: atorvastatin 40 mg Tablet 80 MG PO (10:32)
[2021-02-21] MEDS: clopidogrel 75 mg Tablet PO (10:33)
[2021-02-21] MEDS: FUROsemide 20 mg Tablet 60 MG PO (10:33)
[2021-02-21] MEDS: carvedilol 3.125 mg Tablet PO (11:06)
[2021-02-21 11:34] LABS: Glucose Point of Care 171 mg/dL (70-110)
--- NOTE | 2021-02-21 18:17 | PC.RESP ---
Smoking Cessation and Pulmonary Rehab information sent to patient.
== END 2021-02-21 11:55 | disposition home or self-care (01) ==
LOC: ER 06:03 → MEDSURG 08:44
PROVIDERS: Emergency Medicine; Admitting Provider Internal Medicine; Emergency Provider Family Medicine; PCP Family Medicine; Visit Provider Internal Medicine
DX: N17.9 Acute kidney failure, unspecified (principal); I44.0 Atrioventricular block, first degree; R53.83 Other fatigue; N39.0 Urinary tract infection, site not specified; I77.9 Disorder of arteries and arterioles, unspecified; F17.210 Nicotine dependence, cigarettes, uncomplicated; I44.7 Left bundle-branch block, unspecified; Z79.82 Long term (current) use of aspirin; Z85.3 Personal history of malignant neoplasm of breast; G89.29 Other chronic pain; J44.9 Chronic obstructive pulmonary disease, unspecified; E78.5 Hyperlipidemia, unspecified; E11.9 Type 2 diabetes mellitus without complications; Z79.4 Long term (current) use of insulin; I10 Essential (primary) hypertension; E66.9 Obesity, unspecified; Z68.34 Body mass index [BMI] 34.0-34.9, adult
CPT/HCPCS: 36415; 36416; 36600; 70450; 70496; 70498; 71045; 74177; 80053; 81001; 82140; 82803; 82962; 83690; 84443; 84484; 85025; 87077; 87086; 87186; 93005; 96361; 96365; 96372; 99285; G0378; J0696; J1644; J1815; J7030; J7040; Q9967

== ENCOUNTER 2021-03-05 14:18 | Outpatient (CLI) | payer MEDICARE, SELFPAY ==
[2021-03-05] MEDS: cyanocobalamin 1,000 mcg/mL SDV 1000 MCG SUBCUT (14:43)
== END 2021-03-05 14:19 | disposition home or self-care (01) ==
PROVIDERS: PCP Family Medicine; Visit Provider Nurse Practitioner
DX: D51.8 Other vitamin B12 deficiency anemias (principal); Z85.3 Personal history of malignant neoplasm of breast
CPT/HCPCS: 96372; J3420

== ENCOUNTER → 2021-03-13 13:20 | Outpatient (BNVA) | payer MEDICARE, SELFPAY | PROVIDERS: PCP Family Medicine; Visit Provider Family Medicine | DX: I77.9 Disorder of arteries and arterioles, unspecified (principal); N17.9 Acute kidney failure, unspecified | CPT/HCPCS: 80048 ==

== ENCOUNTER 2021-04-02 14:32 | Outpatient (CLI) | payer MEDICARE, SELFPAY ==
[2021-04-02] MEDS: cyanocobalamin 1,000 mcg/mL SDV 1000 MCG IM (15:08)
== END 2021-04-02 14:33 | disposition home or self-care (01) ==
LOC: ONCMED 14:35
PROVIDERS: PCP Family Medicine; Visit Provider Nurse Practitioner
DX: D51.9 Vitamin B12 deficiency anemia, unspecified (principal); Z85.3 Personal history of malignant neoplasm of breast
CPT/HCPCS: 96372; J3420

== ENCOUNTER 2021-04-18 13:00 | Inpatient (IN) | payer MEDICARE, SELFPAY ==
[2021-04-18] VITALS (10 sets, daily range): BP systolic 103–130; BP diastolic 46–95; PULSE 61–80; RESP 11–18; TEMP 36.2–36.7; O2SAT 88–98; BMI 30.9
--- NOTE | 2021-04-18 13:19 | CT_ITS ---
WS: [id number] CT HEAD NONCONTRAST HISTORY: fall, head injury, AMS TECHNIQUE: Contiguous axial imaging performed through the brain in 2.5 mm imaging. Bone and soft tiss ue windows. Sagittal and coronal reformats reviewed. All CT scans at [facility] use at le ast one of these dose optimization techniques: automated exposure control; mA and/or kV adjustment pe r patient size (includes targeted exams where dose is matched to clinical indication); or iterative r econstruction. DLP: 2349.39 mGy.cm COMPARISON: None available. No acute intracranial hemorrhage, midline shift or mass effect. Mild atrophy with moderate to severe chronic white matter ischemic changes. No new area of sulcal eff acement. Ventricles: Normal size with no hydrocephalus. Paranasal sinuses: As visualized are clear. Mastoid air cells: Well pneumatized. Calvarium and scalp: Skull is intact with no soft tissue edema or swelling. CT/CT head wo con* [id number] IMPRESSION: 1. No acute intracranial hemorrhage. 2. Mild atrophy with moderate to severe chronic ischemic change.
--- NOTE | 2021-04-18 13:19 | XR_ITS ---
WS: [id number] Exam: XR chest 1V portable [id number] Date/Time of Exam: 04/18/2021 1:35 PM Reason For Exam: AMS Comparison 06/03/2019. There is infiltrate in the right lung base suggesting pneumonia. There is also likely some infiltrate in the left lower lobe. The lungs are fully inflated. Cardiomediastinal structures are unremarkable for portable technique. No pleural effusion. Regional bony elements are intact. XR/XR chest 1V portable [id number] IMPRESSION: 1. Right basal infiltrate suggesting active pneumonia. There is also probably i nfiltrate in the left lower lobe.
--- NOTE | 2021-04-18 13:20 | ECG_ITS ---
[facility] Test Date: 2021-04-18 Pat Name: Paloma Slater Department: Room: Gender: Female Eating Disorder Psychologist: : 1940 Requested By: Avis Glez I Order Number: [id number] Latisha MD: Jaxon Fernandes M.D. Measurements Intervals [place] Rate: 72 P: 268 MI: 137 QRS: -23 QRSD: 157 T: 58 QT: 427 QTc: 469 Interpretive Statements sinus rhythm LEFT BUNDLE BRANCH BLOCK [120+ ms QRS DURATION, 80+ ms Q/S IN V1/V2, 85+ ms R IN I/aVL/V5/V6] Compared to ECG 02/20/2021 06:36:07 NO significant changes noted Electronically Signed On 04-18-2021 17:40:28 CDT by Jaxon Fernandes M.D. [email or web address]
--- NOTE | 2021-04-18 13:28 | W.ED.NEUROSD ---
HPI - Neuro Symptoms/Deficit General: Chief Complaint: Neuro Symptoms/Deficit Stated Complaint: ALOC/ STROKE LIKE SYMPTOMS Time Seen by Provider: 04/18/21 13:11 Source: EMS Mode of arrival: EMS Limitations: altered mental status History of Present Illness: HPI Narrative: Unable to obtain a history from the patient as she is nonverbal. From what I can gather the patient had a fall last night, last known well about 2300 hrs. yesterday. When she woke up this morning family said that she was nonverbal, had weakness on her left upper and lower extremity and when the ambulance arrived at her place of residence she was hypoxic and required 4 L of oxygen. She has had a history of CVA with residual right-sided weakness. She was therefore brought here to be evaluated. Time: 13:00 Last Observed Normal: 23:00 Timing confirmed by: family member Location: left arm and left leg Review of Systems General: Reports: ROS unobtainable due to mental status PFSH ED PFSH: Medical History AAA (abdominal aortic aneurysm) Status post stent graft repair B12 deficiency Bilateral lower extremity edema Breast CA CHF (congestive heart failure) Diastolic/Systolic EF 37% 12/14 Chronic pain COPD (chronic obstructive pulmonary disease) CVA (cerebral vascular accident) Descending thoracic aortic 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, managed as type 2 Dyslipidemia History of nonmelanoma skin cancer History of stent insertion of renal artery HTN (hypertension) Nicotine dependence, cigarettes, with unspecified nicotine-induced disorders Obesity Renal artery stenosis Seasonal allergies Surgical History History of aortic aneurysm repair S/P cholecystectomy S/P hysterectomy S/P mastectomy S/P tonsillectomy Family History Other Stroke Social History Smoking and tobacco status: current every day smoker cigarettes Packs smoked per day: 0.5 Alcohol intake: never NIH stroke score NIHSS: Level Of Consciousness - 1a: 2 Level Of Consciousness Questions - 1b: Neither Correct Level Of Consciousness Commands - 1c: Neither Correct Facial Palsy - 4: Normal Physical Exam Const: COMMON NORMALS: no acute distress, average body habitus, no limitations, healthy appearing and well nourished HENMT: COMMON NORMALS: normocephalic, atraumatic and moist oral mucous membranes HEAD & SCALP: normocephalic and atraumatic Neck/C-Spine: COMMON NORMALS: full ROM, supple, no meningeal signs, no JVD and No carotid bruits Resp: COMMON NORMALS: normal respiratory effort, No retractions, No use of accessory muscles, clear to auscultation bilaterally and percussion normal AUSCULTATION: clear to auscultation bilaterally PERCUSSION: percussion normal Cardio: COMMON NORMALS: no JVD, regular rate, regular rhythm, S1 normal heart sound present, S2 normal heart sound present, No gallops present (Cardio), No clicks present (Cardio), No murmurs present (Cardio), No rub (Cardio) and Peripheral pulses 2+ throughout RATE: regular rate RHYTHM: regular rhythm HEART SOUNDS: S1 normal heart sound present and S2 normal heart sound present PERIPHERAL PULSES: Peripheral pulses 2+ throughout GI: COMMON NORMALS: Normal to inspection, nondistended, normoactive bowel sounds present, Soft to palpation, non-tender, No hepatosplenomegaly present, no masses and no bruits PALPATION: Yes Soft to palpation and Yes No hepatosplenomegaly present Extremity: COMMON NORMALS: normal to inspection, full ROM, capillary refill normal, no calf tenderness and no pedal edema Neuro: SENSORIUM/ORIENTATION: Yes somnolent MENINGEAL SIGNS: Yes no meningeal signs OTHER: Unable to perform any thorough neurologic exam including an NIHSS because the patient is somnolent and unable to follow commands. Skin: COMMON NORMALS: no rashes or lesions noted, no wounds, turgor normal, no jaundice, no petechiae and no mottling GENERAL SKIN EXAM: no rashes or lesions noted and turgor normal Course ED course: 1433: Discussed with the patient's daughter. She states that the patient has been unwell for about a week and a half will refuse to go to the doctor or the hospital. She fell twice yesterday. This morning when she was altered and not responding properly she brought her to the emergency department to be seen. The daughter states that this is not her baseline as she usually ambulates unassisted and does not wear oxygen. She has been having increasing oxygen requirements over the last few days. 1438: She has penicillin allergy listed but she had ceftriaxone on her last hospital admission. Because she has a right basal pneumonia raising concerns for aspiration as well as UTI I am going to give her cefepime. Consultations: Consultation #1: Discussed the patient with Dr. Vela, hospitalist and he kindly accepted the patient to his service. Time: 14:36 Vital Signs: Vital signs: Vital Signs Temperature 97.1 F L 04/18/21 19:30 Pulse Rate 66 04/18/21 19:30 Respiratory Rate 17 04/18/21 19:30 Blood Pressure 103/63 04/18/21 19:30 Pulse Oximetry 94 04/18/21 19:30 MDM - Neuro Symptoms/Deficit MDM Narrative: Medical decision making narrative: 80-year-old female patient who presents to the emergency department with altered mental status. Evaluation in the emergency department shows that she has a UTI, right lower lobe pneumonia, SONNY, hypoxia. Lactic acid is normal but I believe she met sepsis criteria with infection, endorgan dysfunction. She was given a dose of intravenous cefepime in the emergency department and admitted to the hospital for further evaluation and management. Head CT was negative for acute findings. Medical Records: Attestation: I reviewed the patient's medical records. Lab Data: Attestation: I reviewed the patient's lab results. Labs: Lab Results 04/18/21 04/18/21 04/18/21 Range/Units 12:48 13:53 13:53 WBC 13.5 H (4.0-10.0) 10^3/ uL RBC 3.38 L (4.1-5.3) 10^6/u L Hgb 9.2 L (11.5-15.3) g/dL Hct 28.4 L (37.0-47.0) % MCV 84.0 (81-99) fL MCH 27.2 L (28.0-34.0) pg MCHC 32.4 (30.0-36.0) g/dL RDW 14.7 (12.1-15.1) % Plt Count 688 H (130-400) 10^3/c mm MPV 9.2 (7.4-10.4) fL Neut % (Auto) 84.7 % Lymph % (Auto) 8.2 % [place] % (Auto) 4.8 % Eos % (Auto) 1.3 % Baso % (Auto) 0.3 % Neut # (Auto) 11.42 H (1.8-7.7) 10^3/u L Lymph # (Auto) 1.1 (0.8-4.8) 10^3/u L [place] # (Auto) 0.6 (0.2-0.9) 10^3/u L Eos # (Auto) 0.2 (0.0-0.8) 10^3/u L Baso # (Auto) 0.0 (0.0-0.1) 10^3/u L Nucleated RBC % (a uto) 0 % Nucleated RBCs # 0.0 /100WBC Sodium 132 L (136-145) mmol/L Potassium 4.0 (3.5-5.1) mmol/L Chloride 90 L (98-107) mmol/L Carbon Dioxide 30 H (22-29) mmol/L Anion Gap 16.0 (5-19) BUN 40 H (8-23) mg/dL Creatinine 3.0 H (0.5-0.9) mg/dL GFR Calculation Not Reportable Glucose 99 (65-115) mg/dL Calculated Osmolal ity 284 L (285-295) mOsm/k g Lactate 0.7 (0.5-2.2) mmol/L Calcium 8.2 L (8.5-10.5) mg/dL Total Bilirubin 0.7 (0.15-1.2) mg/dL AST 36 H (0-32) U/L ALT 42 H (0-33) U/L Alkaline Phosphata se 338 H (35-105) IU/L Troponin T Baselin e (0-10) ng/L C-Reactive Protein 183.8 H (0.0-4.9) mg/L NT-Pro-B Natriuret Pep 908 H (0-450) pg/mL Total Protein 6.2 L (6.6-8.7) g/dL Albumin 3.0 L (3.5-5.2) g/dL Globulin 3.2 (1.3-4.6) g/dL Urine Color (Yellow) Urine Appearance (CLEAR) Urine pH (5-7) Ur Specific Gravit y (1.005-1.030) Urine Protein (Negative) Urine Glucose (UA) (Normal) Urine Ketones (Negative) Urine Blood (Negative) Urine Nitrate (Negative) Urine Bilirubin (Negative) Urine Urobilinogen (Negative) mg/dL Ur Leukocyte Nickie ase (Negative) Urine RBC (0-2) /hpf Urine WBC (0-5) /hpf Ur Squamous Epith Cells (0-5) /hpf Ur Transition Epit h Cell /hpf Amorphous Sediment Urine Bacteria (NONE) /hpf 04/18/21 04/18/21 Range/Units 13:53 13:55 WBC (4.0-10.0) 10^3/ uL RBC (4.1-5.3) 10^6/u L Hgb (11.5-15.3) g/dL Hct (37.0-47.0) % MCV (81-99) fL MCH (28.0-34.0) pg MCHC (30.0-36.0) g/dL RDW (12.1-15.1) % Plt Count (130-400) 10^3/c mm MPV (7.4-10.4) fL Neut % (Auto) % Lymph % (Auto) % [place] % (Auto) % Eos % (Auto) % Baso % (Auto) % Neut # (Auto) (1.8-7.7) 10^3/u L Lymph # (Auto) (0.8-4.8) 10^3/u L [place] # (Auto) (0.2-0.9) 10^3/u L Eos # (Auto) (0.0-0.8) 10^3/u L Baso # (Auto) (0.0-0.1) 10^3/u L Nucleated RBC % (a uto) % Nucleated RBCs # /100WBC Sodium (136-145) mmol/L Potassium (3.5-5.1) mmol/L Chloride (98-107) mmol/L Carbon Dioxide (22-29) mmol/L Anion Gap (5-19) BUN (8-23) mg/dL Creatinine (0.5-0.9) mg/dL GFR Calculation Glucose (65-115) mg/dL Calculated Osmolal ity (285-295) mOsm/k g Lactate (0.5-2.2) mmol/L Calcium (8.5-10.5) mg/dL Total Bilirubin (0.15-1.2) mg/dL AST (0-32) U/L ALT (0-33) U/L Alkaline Phosphata se (35-105) IU/L Troponin T Baselin e 39 H (0-10) ng/L C-Reactive Protein (0.0-4.9) mg/L NT-Pro-B Natriuret Pep (0-450) pg/mL Total Protein (6.6-8.7) g/dL Albumin (3.5-5.2) g/dL Globulin (1.3-4.6) g/dL Urine Color Yellow (Yellow) Urine Appearance Hazy A (CLEAR) Urine pH 5 (5-7) Ur Specific Gravit y 1.020 (1.005-1.030) Urine Protein Neg (Negative) Urine Glucose (UA) Norm (Normal) Urine Ketones Negative (Negative) Urine Blood Neg (Negative) Urine Nitrate Negative (Negative) Urine Bilirubin 1+ H (Negative) Urine Urobilinogen 1 H (Negative) mg/dL Ur Leukocyte Nickie ase 1+ H (Negative) Urine RBC 0-4 H (0-2) /hpf Urine WBC 80-100 H (0-5) /hpf Ur Squamous Epith Cells 0-4 H (0-5) /hpf Ur Transition Epit h Cell 0-4 /hpf Amorphous Sediment Not Reportable Urine Bacteria 4+ H (NONE) /hpf Imaging Data^: CXR: Attestation: I personally reviewed and interpreted this imaging study as follows: Radiologist's impression: [address] [id number] ReportSigned Patient: Paloma Slater #: [id number]: 1940cct#:[id number]/Sex: 80 / FADM Date: 04/18/21Loc: ERRoom/Bed:Attending Dr: Ordering Provider/Ordering MD: Avis Glez MD, [facility] [place] of Service: 04/18/21 Procedure(s): XR chest 1V portable [id number] Accession Number(s): [id number] Report Number: [id number] WS: [id number] Exam: XR chest 1V portable [id number] Date/Time of Exam: 04/18/2021 1:35 PM Reason For Exam: AMS Comparison 06/03/2019. There is infiltrate in the right lung base suggesting pneumonia. There is also likely some infiltrate in the left lower lobe. The lungs are fully inflated. Cardiomediastinal structures are unremarkable for portable technique. No pleural effusion. Regional bony elements are intact. XR/XR chest 1V portable 53741 IMPRESSION: 1. Right basal infiltrate suggesting active pneumonia. There is also probably infiltrate in the left lower lobe. Dictated By:Cosme Enriquez, DOSigned By:Cosme Enriquez, DOSigned Date/Time:04/18/21 1353DD/ 1351 CT Head: Attestation: I personally reviewed and interpreted this imaging study as follows: Radiologist's impression: [address] [address] Scan ReportSigned Patient: Paloma Slater #: [id number]: 1940cct#:[id number]/Sex: 80 / FADM Date: 04/18/21Loc: ERRoom/Bed:Attending Dr: Ordering Provider/Ordering MD: Avis Glez MD, [facility] [place] Date of Service: 04/18/21 Procedure(s): CT head wo con* [id number] Accession Number(s): [id number] Report Number: [id number] WS: [id number] CT HEAD NONCONTRAST HISTORY: fall, head injury, AMS TECHNIQUE: Contiguous axial imaging performed through the brain in 2.5 mm imaging. Bone and soft tissue windows. Sagittal and coronal reformats reviewed. [facility] CT scans at [facility] use at least one of these dose optimization techniques: automated exposure control; mA and/or kV adjustment per patient size (includes targeted exams where dose is matched to clinical indication); or iterative reconstruction. DLP: 2349.39 mGy.cm COMPARISON: None available. No acute intracranial hemorrhage, midline shift or mass effect. Mild atrophy with moderate to severe chronic white matter ischemic changes. No new area of sulcal effacement. Ventricles: Normal size with no hydrocephalus. Paranasal sinuses: As visualized are clear. Mastoid air cells: Well pneumatized. Calvarium and scalp: Skull is intact with no soft tissue edema or swelling. CT/CT head wo con* [id number] IMPRESSION: 1. No acute intracranial hemorrhage. 2. Mild atrophy with moderate to severe chronic ischemic change. Dictated By:Em Reynolds DOSigned By:Em Reynolds DOSigned Date/Time:04/18/21 1421DD/ 1418 EKG Data^: EKG 1: Attestation: I personally reviewed and interpreted this EKG as follows: EKG interpretation date: 04/18/21 EKG interpretation time: 13:41 Prior EKG tracings: available for review Interpretation: Junctional rhythm. Heart rate 72 bpm. Left bundle branch block. No ST changes. EKG 2: Attestation: I personally reviewed and interpreted this EKG as follows: EKG interpretation date: 04/18/21 EKG interpretation time: 15:12 Prior EKG tracings: available for review Interpretation: Heart rate 71 bpm. Left bundle branch block. No ST changes. No significant change from earlier today. Discharge Plan Discharge Patient Disposition: Admitted As Inpatient Admit Provider: Michelle Vela Clinical Impression: Sepsis, UTI (urinary tract infection), Acute metabolic encephalopathy, RLL pneumonia, Hypoxia Condition: Stable Coding Level of Care Code ED Ethnic Origins Teacher for Chg Fwd Exam Comprehensive
[2021-04-18 14:01] LABS: Basophils % 0.3 %; Eosinophils # 0.2 10^3/uL (0.0-0.8); Eosinophils % 1.3 %; Hematocrit 28.4 % (37.0-47.0); Hemoglobin 9.2 g/dL (11.5-15.3); Lymphocytes # 1.1 10^3/uL (0.8-4.8); Lymphocytes % 8.2 %; Mean Corpuscular HGB Conc 32.4 g/dL (30.0-36.0); Mean Corpuscular Hemoglobin 27.2 pg (28.0-34.0); Mean Platelet Volume 9.2 fL (7.4-10.4); Monocytes # 0.6 10^3/uL (0.2-0.9); Monocytes % 4.8 %; Neutrophils # 11.42 10^3/uL (1.8-7.7); Neutrophils % 84.7 %; Nucleated Red Blood Cells % 0 %; Platelet Count 688 10^3/cmm (130-400); Red Blood Count 3.38 10^6/uL (4.1-5.3); Red Cell Distribution Width 14.7 % (12.1-15.1); White Blood Count 13.5 10^3/uL (4.0-10.0)
[2021-04-18 14:09] LABS: Add Urine Microscopic? YES; Bilirubin Urine 1+ (Negative); Blood Urine Neg (Negative); Glucose Urine UA Norm (Normal); Ketones Urine Negative (Negative); Leukocyte Esterase Urine 1+ (Negative); Nitrate Urine Negative (Negative); Protein Urine Neg (Negative); Urine Appearance Hazy (CLEAR); Urine Color Yellow (Yellow); Urobilinogen Urine 1 mg/dL (Negative); pH Urine 5 (5-7)
[2021-04-18 14:15] LABS: Add Urine Culture? Yes; Bacteria Urine 4+ /hpf; RBC Urine 0-4 /hpf (0-2); Squamous Epithelial Cell Urine 0-4 /hpf (0-5); Transitional Epi Cells Urine 0-4 /hpf; WBC Urine 80-100 /hpf (0-5)
[2021-04-18 14:25] LABS: Lactate (Lactic Acid level) 0.7 mmol/L (0.5-2.2)
[2021-04-18 14:27] LABS: Troponin(5th) Baseline 39 ng/L (0-10)
[2021-04-18 14:38] LABS: Alanine Aminotransferase 42 U/L (0-33); Alkaline Phosphatase 338 IU/L (35-105); Aspartate Amino Transferase 36 U/L (0-32); Blood Urea Nitrogen 40 mg/dL (8-23); C Reactive Protein 183.8 mg/L (0.0-4.9); Calcium 8.2 mg/dL (8.5-10.5); Carbon Dioxide 30 mmol/L (22-29); Chloride 90 mmol/L (98-107); Globulin 3.2 g/dL (1.3-4.6); Glucose 99 mg/dL (65-115); NT Pro B Type Natriuretic Pept 908 pg/mL (0-450); Osmolality Calculated 284 mOsm/kg (285-295); Sodium 132 mmol/L (136-145); Total Bilirubin 0.7 mg/dL (0.15-1.2); Total Protein 6.2 g/dL (6.6-8.7)
--- NOTE | 2021-04-18 15:20 | ECG_ITS ---
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 Measurements Intervals [place] Rate: 71 P: -79 MI: 141 QRS: -14 QRSD: 158 T: 61 QT: 456 QTc: 496 Interpretive Statements SINUS RHYTHM LEFT BUNDLE BRANCH BLOCK [120+ ms QRS DURATION, 80+ ms Q/S IN V1/V2, 85+ ms R IN I/aVL/V5/V6] Compared to ECG 04/18/2021 13:41:01 Ectopic atrial rhythm now present Junctional rhythm no longer present Electronically Signed On 04-18-2021 17:50:59 CDT by Jaxon Fernandes M.D. [id number]
[2021-04-18] MEDS: cefepime 2,000 MG in sodium chloride 0.9% (plus) 50 ML 100 MG IV (15:29)
[2021-04-18] MEDS: OLANZapine 10 mg VIAL 5 MG IM (15:30)
[2021-04-18] MEDS: water for injection-sterile 10 ML (15:32)
[2021-04-18 16:14] LABS: Troponin 5 2HR 39.33 ng/L (0-10); Troponin 5 2HR Delta 0.33 ABS# (0-10)
--- NOTE | 2021-04-18 18:30 | PM.HP ---
Providers/Chief Complaint Admitting Physician: Michelle Vela MD Primary Care Provider: Patti Irwin DO Chief Complaint: ALOC/ STROKE LIKE SYMPTOMS History of Present Illness Paloma Slater is a 80 year old female Who is a poor historian who presented to the ER with change in mental status. Per chart review patient had 2 falls earlier in the week most recently last night. She was also noted to be hypoxic and placed on 4 L of oxygen. She does have a history of CVA Limited history from patient she reports that she is hungry. She denies cough shortness of breath fevers or chills.. Review of Systems General: Reports: 10 or more systems reviewed and unremarkable except in HPI and below Const: Denies: fever(s) or chills Eyes: Denies: change in vision Resp: Reports: dyspnea GI: Denies: abdominal pain : Denies: flank pain Musc: Reports: joint pain Skin/Breast: Denies: rash or pruritus Neuro: Reports: headache(s) Medications/Allergies Home Medications Medication Instructions Recorded Confirmed Last Taken Type montelukast 10 mg tablet 10 mg PO DAILY 01/24/20 04/18/21 04/17/21 History clopidogrel 75 mg tablet 75 mg PO DAILY 90 Days #90 tab 04/21/20 04/18/21 04/18/21 Rx potassium chloride 10 mEq 20 meq PO DAILY #180 tab 11/02/20 04/18/21 04/18/21 Rx tablet,extended release(part/cryst) insulin glargine 100 unit/mL (3 28 unit SUBCUT DAILY #15 ml 12/13/20 04/18/21 02/19/21 Rx mL) subcutaneous pen carvedilol 3.125 mg PO BID 02/20/21 04/18/21 04/18/21 History oxycodone 10 mg PO QID PRN 02/20/21 04/18/21 Unknown History aspirin 325 mg PO DAILY #30 tab 02/21/21 04/18/21 04/17/21 Rx pantoprazole 40 mg PO DAILY #30 tab 02/21/21 04/18/21 04/17/21 Rx atorvastatin 80 mg tablet 80 mg PO DAILY #90 tab 03/05/21 04/18/21 04/17/21 Rx furosemide 20 mg tablet 60 mg PO DAILY@0800 #90 tab 03/05/21 04/18/21 04/18/21 Rx glipizide 5 mg tablet 5 mg PO DAILY 03/14/21 04/18/21 04/18/21 History cetirizine 10 mg PO DAILY@0800 04/18/21 04/18/21 04/18/21 History lisinopril 10 mg PO DAILY@0800 04/18/21 04/18/21 04/18/21 History loratadine 10 mg PO DAILY PRN 04/18/21 04/18/21 Unknown History Allergies Allergy/AdvReac Type Severity Reaction Status Date / Time adhesive tape Allergy Unknown Unknown Verified 04/09/21 13:39 bacitracin Allergy Unknown Unknown Verified 04/09/21 13:39 [From Neosporin ([id number])] codeine Allergy Unknown Unknown Verified 04/09/21 13:39 neomycin Allergy Unknown Unknown Verified 04/09/21 13:39 [From Neosporin ([id number]-[id number])] penicillamine Allergy Unknown Unknown Verified 04/09/21 13:39 Penicillins Allergy Unknown Unknown Verified 04/09/21 13:39 polymyxin B Allergy Unknown Unknown Verified 04/09/21 13:39 [From Neosporin (mai-xiz-slhom)] prochlorperazine Allergy Unknown Unknown Verified 04/09/21 13:39 [From Compazine] Sulfa (Sulfonamide Allergy Unknown Unknown Verified 04/09/21 13:39 Antibiotics) PFSH Acute PFSH: Medical History AAA (abdominal aortic aneurysm) Status post stent graft repair B12 deficiency Bilateral lower extremity edema Breast CA CHF (congestive heart failure) Diastolic/Systolic EF 37% 12/14 Chronic pain COPD (chronic obstructive pulmonary disease) CVA (cerebral vascular accident) Descending thoracic aortic 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, managed as type 2 Dyslipidemia History of nonmelanoma skin cancer History of stent insertion of renal artery HTN (hypertension) Nicotine dependence, cigarettes, with unspecified nicotine-induced disorders Obesity Renal artery stenosis Seasonal allergies Surgical History History of aortic aneurysm repair S/P cholecystectomy S/P hysterectomy S/P mastectomy S/P tonsillectomy Family History Other Stroke Social History Smoking and tobacco status: current every day smoker cigarettes Packs smoked per day: 0.5 Alcohol intake: never Vitals/I&O/Wt Last Vital Signs Temp 98.0 F 04/18/21 17:00 Pulse 66 04/18/21 17:00 Resp 18 04/18/21 17:00 BP 109/64 04/18/21 17:00 Pulse Ox 90 04/18/21 17:00 Weight last 48 hrs Weight 175 lb Physical Exam Const: COMMON NORMALS: no acute distress ORIENTATION/CONSCIOUSNESS: Yes lethargic Resp: COMMON NORMALS: normal respiratory effort and No retractions Cardio: COMMON NORMALS: regular rate and regular rhythm GI: COMMON NORMALS: Soft to palpation and non-tender Psych: OTHER: flat affect Data : 04/18/21 12:48 04/18/21 13:53 A&P Assessment and plan (1) AMS (altered mental status): Etiology unclear likely multifactorial including UTI, dehydration, pneumonia Continue neurochecks Continue broad-spectrum antibiotics follow-up cultures Gentle hydration Will order echocardiogram, carotid ultrasound When patient more stable consider MRI brain at this time she is likely not able to tolerate Status: Acute (2) Anemia: Monitor CBC We will check stool studies Status: Acute (3) Thrombocytosis: Monitor CBC Status: Acute (4) SONNY (acute kidney injury): IV fluids Check serum creatinine in a.m. Status: Acute (5) Transaminitis: Repeat CMP in morning Status: Acute (6) UTI (urinary tract infection): Follow-up cultures Status: Acute (7) Troponin level elevated: Trend levels Could be secondary demand ischemia we will repeat EKG Check echocardiogram Status: Acute (8) Diabetes 1.5, managed as type 2: Fingerstick blood sugar sliding scale insulin Status: Acute (9) COPD (chronic obstructive pulmonary disease): Continue oxygen Add nebulizers Status: Acute (10) CHF (congestive heart failure): Patient appears to be volume depleted hold diuretics Status: Acute (11) Pneumonia: Nebs oxygen antibiotics Status: Acute Attestations Medical Necessity Statement*: Paloma Velazquez Slater's hospital stay will require greater than 2 midnights for AMS Coding Level of Care Code Acute Chicken Boner for Chg Fwd Exam Expanded Problem Focused Diagnoses AMS (altered mental status) R41.82 Anemia D64.9 Thrombocytosis D47.3 SONNY (acute kidney injury) N17.9 Transaminitis R74.01 UTI (urinary tract infection) N39.0 Troponin level elevated R77.8 Diabetes 1.5, managed as type 2 E13.9 COPD (chronic obstructive pulmonary disease) J44.9 CHF (congestive heart failure) I50.9 Pneumonia J18.9
[2021-04-18 19:05] LABS: Troponin 5 6HR 38.79 ng/L (0-10)
[2021-04-18 19:06] LABS: Troponin 5 6HR Delta -0.21 ng/L (0-12)
--- NOTE | 2021-04-18 19:57 | XR_ITS ---
WS: [id number] Exam: XR foot RT 2V [id number] Date/Time of Exam: 04/18/2021 8:28 PM Reason For Exam: foot pain No acute fracture or dislocation. Postoperative changes of the distal phalanx of the great toe. Degen erative changes of the IP joints and midfoot joints. Small heel spurs. Soft tissue swelling about the forefoot. XR/XR foot RT 2V [id number] IMPRESSION: 1. Soft tissue swelling about the forefoot. No fracture or dislocation. 2. Degenerative changes and calcaneal spurs.
[2021-04-18 20:58] LABS: Troponin(5th) Baseline 40 ng/L (0-10)
[2021-04-18] MEDS: azithromycin 500 MG in sodium chloride 0.9% 250 ML 250 MG IV (21:10)
[2021-04-18] MEDS: sodium chloride 0.9% 1,000 ML 5 ML IV (21:11)
[2021-04-18] MEDS: heparin 5,000 unit/mL INJ 1 mL 5000 UNIT SUBCUT (21:11)
[2021-04-18] MEDS: ipratropium-albuterol 3 mL Neb INHALATION (21:18)
[2021-04-18 22:11] LABS: Glucose Point of Care 89 mg/dL (70-110)
[2021-04-18 22:45] LABS: Troponin 5 2HR 36.83 ng/L (0-10)
[2021-04-18 22:49] LABS: Troponin 5 2HR Delta -3.17 ABS# (0-10)
[2021-04-18] MEDS: cefTRIAXone 1,000 MG in sodium chloride 0.9% (plus) 50 ML 100 MG IV (23:42)
[2021-04-19] VITALS (16 sets, daily range): BP systolic 106–151; BP diastolic 55–73; PULSE 67–81; RESP 14–20; TEMP 36.3–37; O2SAT 89–97
--- NOTE | 2021-04-19 01:02 | ECG_ITS ---
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 Measurements Intervals [place] Rate: 71 P: 266 NH: 178 QRS: -7 QRSD: 165 T: 46 QT: 458 QTc: 501 Interpretive Statements ECTOPIC ATRIAL RHYTHM LEFT BUNDLE BRANCH BLOCK [120+ ms QRS DURATION, 80+ ms Q/S IN V1/V2, 85+ ms R IN I/aVL/V5/V6] Compared to ECG 04/18/2021 15:12:03 Ectopic atrial rhythm now present Sinus rhythm no longer present Electronically Signed On 04-19-2021 18:34:19 CDT by Edna Schwartz M.D. [email or web address] Groupuc [email or web address].[email or web address]/store/OM/[id number]
[2021-04-19 02:32] LABS: Glucose Point of Care 192 mg/dL (70-110)
[2021-04-19] MEDS: ipratropium-albuterol 3 mL Neb INHALATION ×4 (02:48→20:25)
[2021-04-19] MEDS: heparin 5,000 unit/mL INJ 1 mL 5000 UNIT SUBCUT ×2 (06:15→18:17)
[2021-04-19 06:47] LABS: Glucose Point of Care 254 mg/dL (70-110)
[2021-04-19 07:26] LABS: Lactic Sepsis W/Reflex 0.7 mmol/L (0.5-2.2)
[2021-04-19 07:39] LABS: Alanine Aminotransferase 34 U/L (0-33); Albumin Level 2.7 g/dL (3.5-5.2); Alkaline Phosphatase 283 IU/L (35-105); Anion Gap 14.8 (5-19); Aspartate Amino Transferase 27 U/L (0-32); Blood Urea Nitrogen 47 mg/dL (8-23); Calcium 8.4 mg/dL (8.5-10.5); Carbon Dioxide 31 mmol/L (22-29); Chloride 92 mmol/L (98-107); Chol HDL Ratio 5.68 mg/dL (0.0-4.40); Cholesterol 125 mg/dL (0-200); Globulin 4.5 g/dL (1.3-4.6); Glucose 215 mg/dL (65-115); HDL Cholesterol 22 mg/dL (60-100); LDL Cholesterol Calculated 79 mg/dL (50-129); LDL HDL Ratio 3.59 RATIO (0.00-3.22); Magnesium 2.1 mg/dL (1.7-2.3); NT Pro B Type Natriuretic Pept 859 pg/mL (0-450); Osmolality Calculated 297 mOsm/kg (285-295); Potassium 3.8 mmol/L (3.5-5.1); Sodium 134 mmol/L (136-145); Total Bilirubin 0.3 mg/dL (0.15-1.2); Total Protein 7.2 g/dL (6.6-8.7); Triglycerides 122 mg/dL (0-150)
[2021-04-19 07:41] LABS: Estmated Average Glucose 148; Hemoglobin A1C 6.8 % (4.0-6.0)
[2021-04-19] MEDS: montelukast sodium 10 mg Tablet PO (09:25)
[2021-04-19] MEDS: aspirin 325 mg Tablet PO (09:25)
[2021-04-19] MEDS: clopidogrel 75 mg Tablet PO (09:25)
[2021-04-19] MEDS: carvedilol 3.125 mg Tablet PO ×2 (09:25→18:15)
--- NOTE | 2021-04-19 10:00 | CT_ITS ---
WS: [id number] CT ABDOMEN AND PELVIS NONCONTRAST HISTORY: uti, evaluate for pyelo, stones TECHNIQUE: Imaging performed through the abdomen and pelvis. Coronal and sagittal reformats are submi tted. All CT scans at [facility] use at least one of these dose optimization techniques: automated exposure control; mA and/or kV adjustment per patient size (includes targeted exams where d ose is matched to clinical indication); or iterative reconstruction. DLP: 1769.03 mGy.cm COMPARISON: 02/20/2021 Lower thorax: Bilateral lower lobe consolidations are new. Slightly greater consolidation on the R[place] T. Marked enlargement of the heart. No effusion. Liver: Hepatic steatosis. No bile duct dilatation. Gallbladder: Prior cholecystectomy. Pancreas: Mild diffuse pancreatic atrophy. Normal size duct. No mass or pancreatitis. Spleen: Normal. Adrenal glands: Normal. No mass. Right kidney: No significant perinephric stranding. This calcification central pelvis which is vascul ar. No obstruction. Left kidney: Normal size kidney with mild perinephric stranding. Vascular calcifications with no obst ruction. Aorta: Extensive calcification within the [place] aorta beginning in the lower thoracic aorta through the iliac arteries. Endovascular stent graft begins at the level of the celiac axis and extends into the iliac arteries. [place] aneurysm size is 5.5 cm which has not increased in size. No adjacent peria ortic hematoma. No free fluid, intraperitoneal air or significant lymphadenopathy. GI tract: Moderate distention of the stomach with fluid. Diffuse constipation. The appendix is normal . No significant diverticular disease or wall thickening. Abdominal wall: Negative. No hernia. Pelvis: Matias catheter in a nondistended urinary bladder. No free fluid in the pelvis. Prior hysterec bebe. Osseous structures: No destructive bone lesions. CT/CT abdomen pelvis wo con [id number] IMPRESSION: 1. Very mild LEFT perinephric stranding. No renal obstruction. Vascular calcif ications within each kidney. 2. No ascites. 3. Bilateral lower lobe pneumonia, RIGHT greater than LEFT. 4. Status post endovascular grafting aorta with no adjacent hematoma. 5. Prior cholecystectomy.
--- NOTE | 2021-04-19 11:05 | PC.CHAP ---
Pastoral Care Encounter/Spiritual Assessment Type of Contact [] Declined radio program checker visit [] Patient/Family/Request visit [] Outpatient visit [] Follow-up visit [] Physician referral [] Code/Alert [x] Routine visit [] Staff referral [] Actively dying [] Patient sleeping [] Family support [] [] Out of room [] Palliative care [] [x] Receiving care in room [] Pre-surgical visit [] Trauma [x] Long length of stay [] ICU visit [] Other: Relational/Emotional Strength [x] Patient feels connected with others/family/visitors/staff [x] Distress [] Loneliness/isolation [] Abandonment Spirituality of Patient [x] Person of Fidelina [] Attends Jew of their Fidelina [x] Believes in Prayer [] Reads Bible or Congregation materials [] There are Spiritual issues to be addressed Staffing Account Manager Interventions [x] Prayer [x] Active listening [x] Non-anxious presence [x] Spiritual/emotional support [] Crisis/trauma care [x] Spiritual counseling [] Bereavement support [] Provided bereavement packet [] Provided Bible/devotional materials [] Provided toy/stuffed animal, coloring book to patient or family member [] Provided Communion [] Anointing/[place] [] Salvation [x] Completed spiritual assessment [] Other: Impact on Illness or Injury [] Angry [] Fearful [x] Anxious [] Often cries [] Exhaustion [x] Unable to work [] Unable to attend mormonism [] Unable to walk/stand [] Unable to read [] Unable to drive [] Unable to eat/drink [] Unable to sleep [] Unable to be with family [] Patient intubated [] Other: Summary ALOC she is dealing with lots of health problems, waiting on doctor's report has a good attitude and wants to home Time spent with patient 10 mins
[2021-04-19 12:08] LABS: Glucose Point of Care 321 mg/dL (70-110)
[2021-04-19 13:25] LABS: Creatine Phosphokinase 108 U/L (26-192)
--- NOTE | 2021-04-19 13:27 | P.PN_ITS ---
Subjective Subjective: Interval history: Patient was seen this morning, patient's 2 daughters at bedside, patient is alert oriented x3, she is cracking jokes with me, she does not realize that she has a pneumonia and UTI, she is wondering when she can go home, quite irritated with me when I tell her that she has to stay another night, she denies any shortness of breath, Vitals/I&O/Wt Last Vital Signs Temp 97.9 F 04/19/21 08:00 Pulse 68 04/19/21 08:54 Resp 17 04/19/21 08:45 BP 151/65 04/19/21 08:00 Pulse Ox 96 04/19/21 08:45 04/18/21 04/19/21 04/19/21 22:59 06:59 14:59 Intake Total 453.833 / 453.833 60 / 513.833 360 / 360 Output Total 750 / 750 Balance 453.833 / 453.833 -690 / -236.167 360 / 360 Weight last 48 hrs Weight 79.379 kg Physical Exam Const: COMMON NORMALS: no acute distress and patient oriented x3 GENERAL APPEARANCE: frail appearing Resp: COMMON NORMALS: normal respiratory effort, No retractions, No use of accessory muscles and clear to auscultation bilaterally AUSCULTATION: clear to auscultation bilaterally Cardio: COMMON NORMALS: regular rate, regular rhythm, S1 normal heart sound present, S2 normal heart sound present and No murmurs present (Cardio) RATE: regular rate RHYTHM: regular rhythm HEART SOUNDS: S1 normal heart sound present and S2 normal heart sound present GI: COMMON NORMALS: Soft to palpation and non-tender INSPECTION: Yes normal to inspection PALPATION: Yes Soft to palpation Extremity: COMMON NORMALS: no pedal edema OTHER: Matias catheter in place Neuro: COMMON NORMALS: patient oriented x3, CN's II-XII intact bilaterally, moves all extremities, no focal motor deficits and no sensory deficits noted Data : 04/18/21 12:48 04/19/21 06:56 Micro: Microbiology 04/18/21 13:55 Urine Culture - Preliminary Urine,Clean Catch Gram Negative Rods A&P Assessment and plan (1) AMS (altered mental status): Currently back to baseline alert oriented x3, following all commands, patient's daughter at bedside Likely secondary to UTI, left pyelonephritis, bilateral pneumonia UA indicated of UTI, CT abdomen pelvis shows left perinephric stranding, no evidence of obstructive uropathy, creatinine up to 2.8 CT evidence of bilateral pneumonia, on 3 L Follow blood cultures, urine cultures, urine bacterial antigens, sputum cultures Gentle hydration at 50 cc an hour given creatinine of 2.8, patient is EF is 37% Of note during patient's last hospitalization, she was found to have complete occlusion of left extracranial ICA, high-grade stenosis of the right extracranial ICA 84%, 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 Occluded LEFT intracranial ICA and high-grade stenoses RIGHT intracranial ICA.. Focal thrombus with near occlusion near the junction of the RIGHT innominate with the subclavian and common carotid artery. Currently patient is alert oriented x3, neurologically intact, no focal neurologic deficits, is on aspirin, statin, Plavix. Patient has not followed up with neurosurgery as of yet for consideration of stenting procedures Will order echocardiogram Patient is unable to undergo an MRI due to endovascular clips Status: Acute (2) Anemia: Monitor CBC Follow Hemoccult stool, is on dual antiplatelet therapy Protonix 40 IV twice daily Status: Acute (3) Thrombocytosis: Secondary to pneumonia, UTI Status: Acute (4) SONNY (acute kidney injury): SONNY on CKD, creatinine of 2.8 Urine output 700 cc CPK within normal limits CT scan of abdomen pelvis shows left perinephric stranding, evidence of left pyelonephritis, UTI Continue IV fluids, gentle at 50 cc an hour, monitor urine output, to fluid overload Status: Acute (5) Transaminitis: Continue to monitor Status: Acute (6) UTI (urinary tract infection): Follow-up cultures Status: Acute (7) Troponin level elevated: Trend levels Could be secondary demand ischemia Check echocardiogram Status: Acute (8) Diabetes 1.5, managed as type 2: Fingerstick blood sugar sliding scale insulin Status: Acute (9) COPD (chronic obstructive pulmonary disease): Continue oxygen Add nebulizers Status: Acute (10) CHF (congestive heart failure): Patient appears to be volume depleted hold diuretics Status: Acute (11) Bilateral pneumonia: Currently on broad-spectrum antibiotics, with respiratory failure, Status: Acute (12) Diabetic peripheral neuropathy: Patient complaining of bilateral severe peripheral neuropathy pain, continue home oxycodone, education Status: Acute (13) Acute kidney injury superimposed on CKD: Status: Acute (14) Acute respiratory failure with hypoxia: Currently on 3 L, does not use oxygen at home, BNP is 800, does have a EF of 37%, likely secondary to bilateral pneumonia, is on fluids for SONNY, monitor for fluid overload Status: Acute Attestations Medical Necessity Statement*: Patient requires hospitalization, inpatient, greater than 2 nights, and altered mental status secondary to pneumonia, acute respiratory failure, NSTEMI, UTI, sonny Coding Level of Care Code Acute Hospitality Workers for g Fwd Diagnoses AMS (altered mental status) R41.82 Anemia D64.9 Thrombocytosis D47.3 SONNY (acute kidney injury) N17.9 Transaminitis R74.01 UTI (urinary tract infection) N39.0 Troponin level elevated R77.8 Diabetes 1.5, managed as type 2 E13.9 COPD (chronic obstructive pulmonary disease) J44.9 CHF (congestive heart failure) I50.9 Bilateral pneumonia J18.9 Diabetic peripheral neuropathy E11.42 Acute kidney injury superimposed on CKD N17.9; N18.9 Acute respiratory failure with hypoxia J96.01
[2021-04-19] MEDS: oxyCODONE 5 mg IR Tab/Cap 10 MG PO ×2 (14:23→20:54)
[2021-04-19] MEDS: pantoprazole 40 mg SDV IVP ×2 (14:24→21:39)
[2021-04-19] MEDS: sucralfate 1 gm Tablet PO ×2 (18:15→20:53)
[2021-04-19] MEDS: fluconazole 100 mg Tablet 150 MG PO (18:40)
[2021-04-19] MEDS: sodium chloride 0.9% 1,000 ML 50 ML IV (18:42)
--- NOTE | 2021-04-19 19:03 | USCV_ITS ---
Bryon Paloma Age: 80 Gender: F : 1940 Exam Date: 04/19/2021 06:19 Ordering Phys: Michelle Vela MD Technologist: Adriane Hernandez [place]am Location[place] [facility] [place]ication: Elevated tropinin BP: 120 / 73 HR: 144 Rhythm: Sinus Technical Quality: Technically difficult study MEASUREMENTS (Male / Female) Normal Values 2D ECHO LV Diastolic Diameter PLAX 4.8 cm 4.2 - 5.9 / 3.9 - 5.3 cm LV Systolic Diameter PLAX 3.1 cm LV Chamber Size 4.8 cm IVS Diastolic Thickness 1.6 cm 0.6 - 1.0 / 0.6 - 0.9 cm IVS Systolic Thickness 1.8 cm LVPW Diastolic Thickness 0.9 cm 0.6 - 1.0 / 0.6 - 0.9 cm LVPW Systolic Thickness 1.0 cm RV Chamber Size 2.5 cm LVOT Diameter 2.2 cm LV Ejection Fraction 2D Teich 63.9 % LV Ejection Fraction MOD 2C 45.5 % LV Ejection Fraction 2C AL 46.7 % LA Diameter 4.5 cm LA Width 3.4 cm LA Height 5.3 cm RA Width 2.8 cm RA Height 4.8 cm Aorta at Sinotubular Diameter 2.8 cm M-MODE LV Diastolic Diameter MM 5.5 cm 4.2 - 5.9 / 3.9 - 5.3 cm LV Systolic Diameter MM 3.8 cm LV Ejection Fraction MM Teich 57.6 % IVS Diastolic Thickness MM 1.0 cm 0.6 - 1.0 / 0.6 - 0.9 cm IVS Systolic Thickness MM 1.3 cm LVPW Diastolic Thickness MM 1.2 cm 0.6 - 1.0 / 0.6 - 0.9 cm LVPW Systolic Thickness MM 1.3 cm RV Diastolic Diameter MM 1.6 cm Aortic Annulus Diameter 2.9 cm LA Ao Ratio MM 1.8 MV E Point Septal Separation 0.7 cm DOPPLER AV Peak Velocity 135.0 cm/s LVOT Peak Velocity 102.0 cm/s AV Area Cont Eq vti 2.5 cm squared AV Area Cont Eq pk 2.8 cm squared MV Peak Velocity 101.0 cm/s MV Area PHT 5.0 cm squared Mitral E to A Ratio 0.9 MV E' Velocity 54.0 cm/s Mitral E to MV E' Ratio 9.7 Mitral E to LV E' Lateral Ratio 18.2 Mitral E to LV E' Septal Ratio 6.6 TR Peak Velocity 264.0 cm/s TR Peak Gradient 27.9 mmHg TV Peak E Velocity 57.0 cm/s Right Atrial Pressure 3.0 mmHg Pulmonary Artery Systolic Pressu 30.9 mmHg PV Peak Velocity 87.0 cm/s RV Acceleration Time 0.1 s RV Ejection Time 0.3 s RV AcT/ET 0.2 FINDINGS Left Ventricle Mildly increased left ventricular cavity size. Moderately decreased left ventricular systolic function. Left ventricular ejection fraction is estimated at 35-40 %. This study is inadequate for estimation of regional wall motion abnormality. Abnormal septal motion consistent with conduction abnormality. Right Ventricle Probably normal right ventricular size and systolic function, RVSP 36 mmHg. Right Atrium Normal right atrial size. Right atrial pressure estimated at 8 mmHg Left Atrium Mildly increased left atrial size. Mitral Valve Mild to moderate mitral annular calcification. Mildly thickened mitral valve. No mitral valve stenosis. Mild mitral valve regurgitation. Aortic Valve Aortic valve not well visualized. No aortic valve stenosis. No aortic valve regurgitation. Tricuspid Valve Structurally normal tricuspid valve. Trace tricuspid valve regurgitation. Pulmonic Valve Pulmonic valve not well visualized. No pulmonary valve stenosis. No pulmonary valve regurgitation. Pericardium No pericardial effusion. Aorta Normal-sized aortic root. Mildly dilated mid vena cava cava. CONCLUSIONS 1. This is still a technically difficult study. 2. Mildly increased left ventricular cavity size. Moderately decreased left ventricular systolic function. Left ventricular ejection fraction is estimated at 35-40 %. This study is inadequate for estimation of regional wall motion abnormality. 3. Probably normal right ventricular size and systolic function. 4. Mild mitral valve regurgitation. 5. Pulmonary artery pressure estimated at 36 mmHg. 6. No significant change when compared to echocardiogram dated 11/28/2020. Recommend using echo contrast for better assessment of LV function and wall motion abnormality. Edna Schwartz MD (Electronically Signed) Final Date: 19 Apr 2021 17:50 S
[2021-04-19 20:30] LABS: Glucose Point of Care 229 mg/dL (70-110)
[2021-04-19] MEDS: azithromycin 500 MG in sodium chloride 0.9% 250 ML 250 MG IV (20:53)
--- NOTE | 2021-04-19 22:28 | PC.NURSE ---
pt sitting on side of bed with bed alarm on. pt educated multiple times that an alarm will sound if pt goes to stand up to notify staff. pt stated she will not get up out of bed on her own. pt is mostly alert and oriented, pt can answer name, , place, and situation; however, pt is seeing things that are not present. pt's son had called and stated pt called and and was seeing things in the room. pt now complaining of nausea stating her antibiotic is making her sick. pt was trying to take some zofran that she had in her purse, pt educated on the risks of taking something not currently prescribed d/t possible interactions with other meds. this nurse took meds from pt to lock in the pyxis. pt educated that she may have them back upon discharging. pt has leaned forward and stood at the side of the bed multiple times, and started asking where that noise was coming from. pt again reeducated about her bed alarm. pt was also caught standing up to shut off bed alarm when WIRE TURNING MACHINE OPERATOR responded to room.
[2021-04-19] MEDS: cefTRIAXone 1,000 MG in sodium chloride 0.9% (plus) 50 ML 100 MG IV (22:45)
[2021-04-20] VITALS (12 sets, daily range): BP systolic 112–144; BP diastolic 54–72; PULSE 57–86; RESP 16–20; TEMP 36.5–37.1; O2SAT 92–99
[2021-04-20] MEDS: ipratropium-albuterol 3 mL Neb INHALATION ×3 (02:10→14:47)
[2021-04-20] MEDS: oxyCODONE 5 mg IR Tab/Cap 10 MG PO (04:04)
[2021-04-20 05:25] LABS: Basophils % 0.2 %; Eosinophils # 0.4 10^3/uL (0.0-0.8); Eosinophils % 2.9 %; Hematocrit 26.5 % (37.0-47.0); Hemoglobin 8.2 g/dL (11.5-15.3); Lymphocytes # 1.8 10^3/uL (0.8-4.8); Lymphocytes % 14.5 %; Mean Corpuscular HGB Conc 30.9 g/dL (30.0-36.0); Mean Corpuscular Hemoglobin 26.5 pg (28.0-34.0); Mean Corpuscular Volume 85.8 fL (81-99); Monocytes % 7.7 %; Neutrophils % 74.2 %; Nucleated Red Blood Cells % 0 %; Platelet Count 678 10^3/cmm (130-400); Red Blood Count 3.09 10^6/uL (4.1-5.3); Red Cell Distribution Width 14.6 % (12.1-15.1); White Blood Count 12.7 10^3/uL (4.0-10.0)
[2021-04-20 05:52] LABS: Procalcitonin 0.11 ng/mL (0-0.5)
[2021-04-20] MEDS: sucralfate 1 gm Tablet PO ×2 (06:04→12:41)
[2021-04-20] MEDS: heparin 5,000 unit/mL INJ 1 mL 5000 UNIT SUBCUT (06:04)
[2021-04-20 06:06] LABS: Alanine Aminotransferase 26 U/L (0-33); Albumin Level 2.5 g/dL (3.5-5.2); Alkaline Phosphatase 233 IU/L (35-105); Anion Gap 13.8 (5-19); Aspartate Amino Transferase 21 U/L (0-32); Blood Urea Nitrogen 44 mg/dL (8-23); Calcium 8.4 mg/dL (8.5-10.5); Carbon Dioxide 29 mmol/L (22-29); Chloride 95 mmol/L (98-107); Globulin 3.9 g/dL (1.3-4.6); Glucose 120 mg/dL (65-115); Magnesium 2.1 mg/dL (1.7-2.3); Osmolality Calculated 290 mOsm/kg (285-295); Phosphorus 3.4 mg/dL (2.5-4.5); Potassium 3.8 mmol/L (3.5-5.1); Sodium 134 mmol/L (136-145); Total Bilirubin 0.2 mg/dL (0.15-1.2); Total Protein 6.4 g/dL (6.6-8.7)
[2021-04-20 06:12] LABS: Glucose Point of Care 126 mg/dL (70-110)
[2021-04-20 06:15] LABS: NT Pro B Type Natriuretic Pept 1799 pg/mL (0-450)
[2021-04-20] MEDS: pantoprazole 40 mg SDV IVP (09:23)
[2021-04-20] MEDS: montelukast sodium 10 mg Tablet PO (09:23)
[2021-04-20] MEDS: docusate sodium 100 mg Capsule PO (09:24)
[2021-04-20] MEDS: carvedilol 3.125 mg Tablet PO (09:24)
[2021-04-20] MEDS: aspirin 325 mg Tablet PO (09:24)
[2021-04-20] MEDS: clopidogrel 75 mg Tablet PO (09:24)
[2021-04-20] MEDS: polyethylene glycol 3350 Pkt 17 gm PO (10:54)
[2021-04-20 11:10] LABS: Glucose Point of Care 147 mg/dL (70-110)
[2021-04-20] MEDS: nystatin powder 15 gm Btl 1 APPLIC TOPICAL (12:41)
--- NOTE | 2021-04-20 12:53 | PC.NURSE ---
18 m[place] blackman catheter placed on 04/18/21. aseptic technique used
--- NOTE | 2021-04-20 13:08 | PM.DCS ---
Discharge Providers Date of Admission: 04/18/21 14:40 Date of Discharge: April 20, 2021 Attending Provider at Admission: Michelle Vela MD Attending Provider at Discharge: Gurmeet Vega MD Primary Care Provider: Patti Iriwn DO Diagnoses at Discharge Discharge Diagnosis (1) AMS (altered mental status): Status: Acute (2) Anemia: Status: Acute (3) Thrombocytosis: Status: Acute (4) SONNY (acute kidney injury): Status: Acute (5) Transaminitis: Status: Acute (6) UTI (urinary tract infection): Status: Acute (7) Troponin level elevated: Status: Acute (8) Diabetes 1.5, managed as type 2: Status: Acute (9) COPD (chronic obstructive pulmonary disease): Status: Acute (10) CHF (congestive heart failure): Status: Acute Permanent problem details: Diastolic/Systolic EF 37% 12/14 (11) Bilateral pneumonia: Status: Acute (12) Diabetic peripheral neuropathy: Status: Acute (13) Acute kidney injury superimposed on CKD: Status: Acute (14) Acute respiratory failure with hypoxia: Status: Acute Reason for Visit Reason for Visit: ALOC/ STROKE LIKE SYMPTOMS Hospital Course Hospital Course This is a 80-year-old female with a past medical history of abdominal aortic aneurysm status post repair, CHF, COPD, chronic pain, CVA, history of bilateral extracranial artery stenosis, hypertension, hyperlipidemia, insulin-dependent type 2 diabetes mellitus, who presents to [facility] due to altered mental status Patient left AGAINST MEDICAL ADVICE 04/20/2021 at 4 PM AMS (altered mental status) secondary to E. coli UTI, left pyelonephritis and bilateral pneumonia, SONNY on CKD, anemia Likely secondary to UTI, left pyelonephritis, bilateral pneumonia UA indicated of UTI, CT abdomen pelvis shows left perinephric stranding, no evidence of obstructive uropathy, creatinine up to 2.8 CT evidence of bilateral pneumonia, requiring up to 3 L nasal cannula Follow blood cultures so far negative, urine cultures E. coli sensitive to Levaquin, Repeat echocardiogram shows an EF of 35 to 40%, baseline EF 37% Patient was admitted to [facility], received broad-spectrum antibiotic therapy, clinically monitored, received gentle IV hydration,. Her mentation improved, alert oriented x3, follows all commands, LEFT AMA, discharged on Levaquin for 6 remaining days, oxygen therapy. Of note during patient's last hospitalization, she was found to have complete occlusion of left extracranial ICA, high-grade stenosis of the right extracranial ICA 84%, 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 Occluded LEFT intracranial ICA and high-grade stenoses RIGHT intracranial ICA.. Focal thrombus with near occlusion near the junction of the RIGHT innominate with the subclavian and common carotid artery. Currently patient is alert oriented x3, neurologically intact, no focal neurologic deficits, is on aspirin, statin, Plavix at home. Patient has not followed up with neurosurgery as of yet for consideration of stenting procedures LEFT AMA, BUT On discharge she was discharged on aspirin, statin, Plavix was held given anemia Anemia, hemoglobin did drift to 8.2 during hospitalization, no hemodynamic compromise, no bowel movements, no reported bloody or black stools, she was managed with Carafate, Protonix. I recommended for patient to be monitored as inpatient, monitor hemoglobin, she possibly might require an EGD, possibly might require blood transfusions, however patient refused, advised of risk of leaving AGAINST MEDICAL ADVICE, including but not limited to high risk of morbidity mortality, high risk of GI bleed, high risk of anemia, high risk of falls, high risk of fractures, high risk of hemorrhagic shock, nonetheless she wanted to go home, she left AGAINST MEDICAL ADVICE, Hemoglobin WHEN SHE LEFT AMA 8.8 Left AMA, but on discharge we will continue aspirin 325 mg, statin Plavix has been held given her anemia Follow-up with primary care provider on Friday for recheck CBC, follow-up with Dr. Saucedo Discharged on Protonix 40 twice daily, Carafate Advised of the risks and benefits of holding Plavix, given GI bleed versus worsening extracranial artery stenosis, risk of stroke, she voiced understanding, all questions answered, agreed to hold Plavix Refer to general surgery for EGD If patient were to have any bloody or black stools, lightheadedness, dizziness, go to the emergency room SONNY on CKD, creatinine as high as 3, secondary to UTI, pyelonephritis, improved with IV hydration, creatinine on discharge was 2, resume Lasix and lisinopril on Friday, recheck creatinine on Friday Given SONNY, glipizide was stopped, her Lantus dose was decreased to 20 units Physical Exam Const: COMMON NORMALS: no acute distress and patient oriented x3 GENERAL APPEARANCE: cooperative and comfortable Lymph: LYMPHATIC: no lymphadenopathy noted Resp: COMMON NORMALS: normal respiratory effort, No retractions, No use of accessory muscles and clear to auscultation bilaterally AUSCULTATION: clear to auscultation bilaterally Cardio: COMMON NORMALS: regular rate, regular rhythm, S1 normal heart sound present, S2 normal heart sound present, No gallops present (Cardio), No clicks present (Cardio) and No murmurs present (Cardio) RATE: regular rate RHYTHM: regular rhythm HEART SOUNDS: S1 normal heart sound present and S2 normal heart sound present GI: COMMON NORMALS: Normal to inspection, nondistended, normoactive bowel sounds present and Soft to palpation PALPATION: Yes Soft to palpation Neuro: COMMON NORMALS: patient oriented x3, CN's II-XII intact bilaterally, moves all extremities and no focal motor deficits Psych: COMMON NORMALS: mental status grossly normal Urinary Catheter Management^: Matias: Cath Placed During This Visit: yes, but has since been removed by the nurse Reason for Continuing Indwelling Catheter: Decision to DC Catheter Date Urinary Catheter Removed: 04/20/21 Time Urinary Catheter Discontinued: 10:47 Discharge Data Data Completed and Pending: Completed Studies During Hospitalization Category Date Time Status CT abdomen pelvis wo con [id number] Rout ine Cat Scan 04/19/21 10:[address] head wo con* 7 0450 Urgent Cat Scan 04/18/21 13:19 Completed XR chest 1V katie ble [id number] Stat Exams 04/18/21 13:19 Completed XR foot RT 2V 736 20 Routine Exams 04/18/21 19:57 Completed CV echo complete* [id number] Routine Ultrasound 04/19/21 19:03 Completed Pending at discharge Category Date Time Status Blood Culture Sta t Lab 04/19/21 14:00 Results Complete Blood Co unt w/Auto AM LABS Lab 04/21/21 04:00 Ordered Complete Blood Co unt w/Auto AM LABS Lab 04/22/21 04:00 Ordered Comprehensive Met abolic Panel AM LA BS Lab 04/21/21 04:00 Ordered Comprehensive Met abolic Panel AM LA BS Lab 04/21/21 04:00 Ordered Comprehensive Met abolic Panel AM LA BS Lab 04/22/21 04:00 Ordered Immunochemical Fe anna OCB Routine Lab 04/19/21 13:34 Uncollected Magnesium AM LABS Lab 04/21/21 04:00 Ordered Magnesium AM LABS Lab 04/21/21 04:00 Ordered Magnesium AM LABS Lab 04/22/21 04:00 Ordered NT Pro B Type Zayra riuretic Pept QAM Lab 04/21/21 06:00 Ordered NT Pro B Type Zayra riuretic Pept QAM Lab 04/22/21 06:00 Ordered Phosphorus AM LAB S Lab 04/21/21 04:00 Ordered Phosphorus AM LAB S Lab 04/22/21 04:00 Ordered Procalcitonin AM LABS Lab 04/21/21 04:00 Ordered Procalcitonin AM LABS Lab 04/22/21 04:00 Ordered Sputum Culture an d Gram Stain Stat Lab 04/19/21 13:34 Uncollected Labs from last 24 hours 04/20/21 04/20/21 04/20/21 11:04 06:05 05:00 WBC RBC Hgb Hct MCV MCH MCHC RDW Plt Count MPV Neut % (Auto) Lymph % (Auto) [place] % (Auto) Eos % (Auto) Baso % (Auto) Neut # (Auto) Lymph # (Auto) [place] # (Auto) Eos # (Auto) Baso # (Auto) Nucleated RBC % (a uto) Nucleated RBCs # Sodium 134 L Potassium 3.8 Chloride 95 L Carbon Dioxide 29 Anion Gap 13.8 BUN 44 H Creatinine 2.0 H GFR Calculation Not Reportable Glucose 120 H POC Glucose 147 H 126 H Calculated Osmolal ity 290 Calcium 8.4 L Phosphorus 3.4 Magnesium 2.1 Total Bilirubin 0.2 AST 21 ALT 26 Alkaline Phosphata se 233 H Creatine Kinase NT-Pro-B Natriuret Pep 1799 H Total Protein 6.4 L Albumin 2.5 L Globulin 3.9 Procalcitonin 0.11 04/20/21 04/19/21 04/19/21 05:00 20:26 06:56 WBC 12.7 H RBC 3.09 L Hgb 8.2 L Hct 26.5 L MCV 85.8 MCH 26.5 L MCHC 30.9 RDW 14.6 Plt Count 678 H MPV 9.0 Neut % (Auto) 74.2 Lymph % (Auto) 14.5 [place] % (Auto) 7.7 Eos % (Auto) 2.9 Baso % (Auto) 0.2 Neut # (Auto) 9.40 H Lymph # (Auto) 1.8 [place] # (Auto) 1.0 H Eos # (Auto) 0.4 Baso # (Auto) 0.0 Nucleated RBC % (a uto) 0 Nucleated RBCs # 0.0 Sodium Potassium Chloride Carbon Dioxide Anion Gap BUN Creatinine GFR Calculation Glucose POC Glucose 229 H Calculated Osmolal ity Calcium Phosphorus Magnesium Total Bilirubin AST ALT Alkaline Phosphata se Creatine Kinase 108 NT-Pro-B Natriuret Pep Total Protein Albumin Globulin Procalcitonin Vitals: Last Vital Signs Temp 98.7 F 04/20/21 11:07 Pulse 59 L 04/20/21 11:07 Resp 17 04/20/21 11:07 BP 124/67 04/20/21 11:07 Pulse Ox 98 04/20/21 11:07 Discharge Plan Discharge Patient Disposition: Left Against Medical Advice Condition: Stable Prescriptions: New polyethylene glycol 3350 17 gram Powder In Packet 17 g PO DAILY 30 Days Qty: 30 RF: 0 sucralfate 1 gram Tablet 1 g PO AC&BEDTIME 30 Days Qty: 60 RF: 0 DOK 100 mg Capsule 100 mg PO BID 30 Days Qty: 60 RF: 0 levofloxacin 750 mg tablet 750 mg PO Q48H 6 Days Qty: 3 RF: 0 Continued montelukast [Singulair] 10 mg tablet 10 mg PO DAILY RF: 0 atorvastatin 80 mg tablet 80 mg PO DAILY Qty: 90 RF: 3 carvedilol 3.125 mg Tablet 3.125 mg PO BID RF: 0 oxycodone 10 mg tablet 10 mg PO QID PRN (Reason: Pain) RF: 0 aspirin 325 mg tablet 325 mg PO DAILY Qty: 30 RF: 0 cetirizine 10 mg Tablet 10 mg PO DAILY@0800 RF: 0 loratadine 10 mg tablet 10 mg PO DAILY PRN (Reason: Allergic Reaction) RF: 0 Changed pantoprazole 40 mg Tablet,Delayed Release (Dr/Ec) 40 mg PO Q12H 30 Days Qty: 60 RF: 0 Lantus Solostar U-100 Insulin 100 unit/mL (3 mL) insulin pen 20 unit SUBCUT DAILY Qty: 15 RF: 5 Held clopidogrel 75 mg tablet 75 mg PO DAILY 90 Days Qty: 90 RF: 3 Hold Instructions: Resume on 05/07/21. Until seen by primary care, recheck CBC potassium chloride 10 mEq tablet,ER particles/crystals 20 meq PO DAILY Qty: 180 RF: 3 Hold Instructions: Resume on 04/23/21. furosemide 20 mg tablet 60 mg PO DAILY@0800 Qty: 90 RF: 3 Hold Instructions: Resume on 04/24/21. Hold until Friday lisinopril 10 mg tablet 10 mg PO DAILY@0800 RF: 0 Hold Instructions: Resume on 04/23/21. Discontinued glipizide 5 mg tablet 5 mg PO DAILY RF: 0 Referrals: Stephon Thompson MD [Physician] - 2 weeks (egd) Patti Irwin DO [Primary Care Provider] - 1-3 days (Needs to see on Friday or Friday) Discharge Diet: GI Soft Discharge Activity: Resume usual activity Patient Instructions: Opioid Safety Activity Restrictions/Additional Instructions: -Recheck CBC on Friday -Follow-up with primary care Friday -Continue Protonix 40 twice daily, Carafate -Continue aspirin, statin, Plavix has been held -If you have any bloody or black stools, lightheadedness, dizziness go to emergency room -For urinary tract infection, and pneumonia continue Levaquin -Oxygen therapy -Monitor blood sugars closely -Your kidney function is still not back to normal, creatinine is 2, hold lisinopril, Lasix until Friday -Have primary care provider recheck creatinine on Friday Discharge Attestations Time Spent in Discharge Care*: greater than 30 min Quality Metrics Clinical Quality Measures During this hospital stay, did patient experience: None Coding Level of Care Code Acute g [facility] note Exam Detailed Diagnoses AMS (altered mental status) R41.82 Anemia D64.9 Thrombocytosis D47.3 SONNY (acute kidney injury) N17.9 Transaminitis R74.01 UTI (urinary tract infection) N39.0 Troponin level elevated R77.8 Diabetes 1.5, managed as type 2 E13.9 COPD (chronic obstructive pulmonary disease) J44.9 CHF (congestive heart failure) I50.9 Bilateral pneumonia J18.9 Diabetic peripheral neuropathy E11.42 Acute kidney injury superimposed on CKD N17.9; N18.9 Acute respiratory failure with hypoxia J96.01
--- NOTE | 2021-04-20 13:22 | P.PN_ITS ---
Subjective Subjective: Interval history: And amenablePatient was seen this morning, she sitting up in a chair, alert oriented x3, in 1 to 2 L nasal cannula, her hemoglobin is down to 8.2, no reports of bloody or black stools, no history of bleeds in the past, no history of anemia, no history of EGD or colonoscopy, going home, but understands the need that she might still be here for hemoglobin continues to downward trend, denies any lightheadedness or dizziness with ambulation, she is not had a bowel movement as of yet she is also complaining of some intolerance a antibiotics, but says that this morning she is doing okay Vitals/I&O/Wt Last Vital Signs Temp 98.7 F 04/20/21 11:07 Pulse 59 L 04/20/21 11:07 Resp 17 04/20/21 11:07 BP 124/67 04/20/21 11:07 Pulse Ox 98 04/20/21 11:07 04/19/21 04/20/21 04/20/21 22:59 06:59 14:59 Intake Total 1196.167 / 1796.167 150 / 6159.076 1873 / 1840 Output Total 1500 / 1500 Balance 1196.167 / 1796.167 -1350 / 978.605 3192 / 1840 Physical Exam Const: COMMON NORMALS: no acute distress and patient oriented x3 Resp: COMMON NORMALS: normal respiratory effort, No retractions, No use of accessory muscles and clear to auscultation bilaterally AUSCULTATION: clear to auscultation bilaterally Cardio: COMMON NORMALS: regular rate, regular rhythm, S1 normal heart sound present and S2 normal heart sound present RATE: regular rate RHYTHM: regular rhythm HEART SOUNDS: S1 normal heart sound present and S2 normal heart sound present GI: COMMON NORMALS: Normal to inspection, nondistended, normoactive bowel sounds present, Soft to palpation, non-tender and No hepatosplenomegaly present PALPATION: Yes Soft to palpation and Yes No hepatosplenomegaly present Extremity: COMMON NORMALS: no pedal edema Neuro: COMMON NORMALS: patient oriented x3 Psych: COMMON NORMALS: mental status grossly normal Urinary Catheter Management^: Matias: Cath Placed During This Visit: yes, but has since been removed by the nurse Reason for Continuing Indwelling Catheter: Decision to DC Catheter Date Urinary Catheter Removed: 04/20/21 Time Urinary Catheter Discontinued: 10:47 Data : 04/20/21 05:00 04/20/21 05:00 Micro: Microbiology 04/18/21 13:55 Urine Culture - Final Urine,Clean Catch Escherichia coli 04/20/21 04:25 Bacterial Antigens - Final Urine,Clean Catch 04/19/21 14:00 Blood Culture - Preliminary Blood SPECIMEN COLLECTED 04/19/21 14:00 Blood Culture - Preliminary Blood SPECIMEN COLLECTED A&P Assessment and plan (1) AMS (altered mental status): Currently back to baseline alert oriented x3, following all commands, adamant about going home Likely secondary to UTI, left pyelonephritis, bilateral pneumonia UA indicated of UTI, CT abdomen pelvis shows left perinephric stranding, no e vidence of obstructive uropathy, creatinine downwards to 2.0, stop fluids CT evidence of bilateral pneumonia, on 1 to 2 L Follow blood cultures, urine cultures positive for E. coli sensitive to Levaquin urine bacterial antigens, sputum cultures Stop fluids as creatinine is 2,, patient is EF is 37% Of note during patient's last hospitalization, she was found to have complete occlusion of left extracranial ICA, high-grade stenosis of the right extracranial ICA 84%, 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 Occluded LEFT intracranial ICA and high-grade stenoses RIGHT intracranial ICA.. Focal thrombus with near occlusion near the junction of the RIGHT innominate with the subclavian and common carotid artery. Currently patient is alert oriented x3, neurologically intact, no focal neurologic deficits, is on aspirin, statin, Plavix on hold given anemia. Siomara ent has not followed up with neurosurgery as of yet for consideration of stenting procedures Echocardiogram shows an EF of 35 to 40%, poor quality study Patient is unable to undergo an MRI due to endovascular clips Status: Acute (2) Anemia: -Likely slow GI bleed from aspirin, Plavix, heparin -Currently hemoglobin 8.2, no hemodynamic compromise, no bloody or black stools, has not had a bowel movement as of yet -Hold Plavix, stop heparin, continue aspirin, statin -Discussed risks and benefits of holding Plavix, GI bleed versus CVA, voiced understanding, all questions answered, agreed to proceed to hold Plavix -Monitor hemoglobin, if hemoglobin stabilizes by noon, okay to discharge with just aspirin and statin, Plavix on hold -However if hemoglobin continues to downward trend, will need to keep as inpatient to monitor hemoglobin, possibly might require an EGD in order blood transfusion -Protonix 40 IV twice daily, Carafate, monitor hemodynamics Status: Acute (3) Thrombocytosis: Secondary to pneumonia, UTI Status: Acute (4) SONNY (acute kidney injury): SONNY on CKD, creatinine of 2.0 Urine output 1500 cc CPK within normal limits CT scan of abdomen pelvis shows left perinephric stranding, evidence of left pyelonephritis, UTI Fluids stopped due to concerns for fluid overload given EF of 35 to 40% Status: Acute (5) Transaminitis: Continue to monitor Status: Acute (6) UTI (urinary tract infection): Status: Acute (7) Troponin level elevated: Trend levels Could be secondary demand ischemia Check echocardiogram Status: Acute (8) Diabetes 1.5, managed as type 2: Fingerstick blood sugar sliding scale insulin Status: Acute (9) COPD (chronic obstructive pulmonary disease): Continue oxygen Add nebulizers Status: Acute (10) CHF (congestive heart failure): Patient appears to be volume depleted hold diuretics Status: Acute (11) Bilateral pneumonia: Currently on broad-spectrum antibiotics, with respiratory failure, Status: Acute (12) Diabetic peripheral neuropathy: Patient complaining of bilateral severe peripheral neuropathy pain, continue home oxycodone, education Status: Acute (13) Acute kidney injury superimposed on CKD: Status: Acute (14) Acute respiratory failure with hypoxia: Currently on 1-2 L, does not use oxygen at home, does have an EF of 35 to 40%, likely secondary to bilateral pneumonia Status: Acute Additional A&P Information Plan for today, continue antibiotics, continue to monitor respiratory status, monitor urine output monitor creatinine, monitor hemoglobin, possibly will require transfusion Attestations Medical Necessity Statement*: Patient requires hospitalization due to altered mental status secondary to UTI, bilateral pneumonia, left pyelonephritis, acute respiratory failure, now with acute anemia Coding Level of Care Code Acute Special Effects Specialist for [facility] Fwd Diagnoses AMS (altered mental status) R41.82 Anemia D64.9 Thrombocytosis D47.3 SONNY (acute kidney injury) N17.9 Transaminitis R74.01 UTI (urinary tract infection) N39.0 Troponin level elevated R77.8 Diabetes 1.5, managed as type 2 E13.9 COPD (chronic obstructive pulmonary disease) J44.9 CHF (congestive heart failure) I50.9 Bilateral pneumonia J18.9 Diabetic peripheral neuropathy E11.42 Acute kidney injury superimposed on CKD N17.9; N18.9 Acute respiratory failure with hypoxia J96.01
[2021-04-20 13:31] LABS: Hematocrit 27.7 % (37.0-47.0); Hemoglobin 8.8 g/dL (11.5-15.3)
--- NOTE | 2021-04-20 15:09 | PC.RESP ---
Smoking Cessation and Pulmonary Rehab information sent to patient.
[2021-04-20 16:24] LABS: Glucose Point of Care 237 mg/dL (70-110)
--- NOTE | 2021-04-20 16:48 | PC.NURSE ---
AMA Dr. Vega recommends patient stay another night to monitor since her hemoblogin is still low. Patient states she is leaving today, is not interested in staying another night. She states, I feel 100% better. I am going home. Discussed this is against medical advice, and discussed the risks of this. Verbalized understanding, AMA form signed. IV removecd.
== END 2021-04-20 16:47 | disposition left against medical advice (07) | DRG 193 ==
LOC: ER 14:17 → MEDSURG 15:21
PROVIDERS: Admitting Provider Internal Medicine; Emergency Provider Family Medicine; PCP Family Medicine; Visit Provider Family Medicine
DX: J18.9 Pneumonia, unspecified organism (principal); I21.4 Non-ST elevation (NSTEMI) myocardial infarction; J96.01 Acute respiratory failure with hypoxia; I13.0 Hypertensive heart and chronic kidney disease with heart failure and stage 1 through stage 4 chronic kidney disease, or unspecified chronic kidney disease; I50.42 Chronic combined systolic (congestive) and diastolic (congestive) heart failure; J44.0 Chronic obstructive pulmonary disease with (acute) lower respiratory infection; N12 Tubulo-interstitial nephritis, not specified as acute or chronic; N17.9 Acute kidney failure, unspecified; N39.0 Urinary tract infection, site not specified; W19.XXXA Unspecified fall, initial encounter; Z99.81 Dependence on supplemental oxygen; Z86.73 Personal history of transient ischemic attack (TIA), and cerebral infarction without residual deficits; E53.8 Deficiency of other specified B group vitamins; Z85.3 Personal history of malignant neoplasm of breast; N18.9 Chronic kidney disease, unspecified; G89.29 Other chronic pain; E11.22 Type 2 diabetes mellitus with diabetic chronic kidney disease; E11.40 Type 2 diabetes mellitus with diabetic neuropathy, unspecified; I12.9 Hypertensive chronic kidney disease with stage 1 through stage 4 chronic kidney disease, or unspecified chronic kidney disease; E78.5 Hyperlipidemia, unspecified; Z85.828 Personal history of other malignant neoplasm of skin; F17.210 Nicotine dependence, cigarettes, uncomplicated; E66.9 Obesity, unspecified; Z68.31 Body mass index [BMI] 31.0-31.9, adult; I70.1 Atherosclerosis of renal artery; Z90.10 Acquired absence of unspecified breast and nipple; Z79.891 Long term (current) use of opiate analgesic; Z53.29 Procedure and treatment not carried out because of patient's decision for other reasons; D63.1 Anemia in chronic kidney disease; B96.20 Unspecified Escherichia coli [E. coli] as the cause of diseases classified elsewhere; Z79.4 Long term (current) use of insulin; D50.0 Iron deficiency anemia secondary to blood loss (chronic); I65.23 Occlusion and stenosis of bilateral carotid arteries; D47.3 Essential (hemorrhagic) thrombocythemia; E86.0 Dehydration
CPT/HCPCS: 36415; 36416; 70450; 71045; 73620; 74176; 80053; 80061; 81001; 82550; 82962; 83036; 83605; 83735; 83880; 84100; 84145; 84484; 85014; 85018; 85025; 86140; 86403; 87040; 87077; 87086; 87186; 93005; 93306; 94640; 96365; 96372; 99285; C9113; J0456; J0692; J0696; J1644; J1815; J3490; J7030; J7050

== ENCOUNTER 2021-04-25 20:57 | Inpatient (IN) | payer MEDICARE, SELFPAY ==
[2021-04-25 21:11] VITALS: BP 128/57; PULSE 78; RESP 16; TEMP 37.3; O2SAT 94; BMI 32.8
--- NOTE | 2021-04-25 21:19 | XRR_ITS ---
PROCEDURE INFORMATION: Exam: XR Chest Exam date and time: 04/25/2021 9:40 PM Age: 80 years old Clinical indication: Other: Reduced breath sounds; Patient HX: Smoker. PT has slurred speech, facial droop, right sided weakness x today TECHNIQUE: Imaging protocol: XR of the chest. Views: 1 view. COMPARISON: CR XR chest 1V portable [id number] 04/18/2021 1:34 PM FINDINGS: Lungs: Bibasilar opacities (right greater than left) are again noted, which may represent pneumonia. Pleural spaces: Unremarkable. No pleural effusion. No pneumothorax. Heart/Mediastinum: The cardiac silhouette is slightly prominent, which may be projectional. Bones/joints: Unremarkable. XR/XR chest 1V portable [id number] IMPRESSION: Bibasilar opacities, which may be pneumonia.
--- NOTE | 2021-04-25 21:19 | CTR_ITS ---
PROCEDURE INFORMATION: Exam: CT Angiography Head With Contrast, Arteriography Exam date and time: 04/25/2021 9:25 PM Age: 80 years old Clinical indication: Speech disturbance and weakness; Patient HX: Slurred speech. Facial droop. Lower ext weakness. ; Additional info: Right sided weakness TECHNIQUE: Imaging protocol: Computed tomography angiography of the head with contrast. Exam focused on the arteries. 3D rendering (Not supervised by radiologist): MIP and/or 3D reconstructed images were created by the technologist. Radiation optimization: All CT scans at this facility use at least one of these dose optimization techniques: automated exposure control; mA and/or kV adjustment per patient size (includes targeted exams where dose is matched to clinical indication); or iterative reconstruction. Contrast material: VISI 320; Contrast volume: 95 ml; Contrast route: INTRAVENOUS (IV); COMPARISON: CT angio headneck* [id number] 02/20/2021 7:57 AM RADIATION DOSE METRICS: Total DLP (mGy-cm): 2370.04 FINDINGS: ANTERIOR CIRCULATION: Right internal carotid artery: Calcified plaque causes mild to moderate stenosis of the right carotid siphon. No aneurysm. Right middle cerebral artery: Unremarkable. No occlusion or significant stenosis. No aneurysm. Right anterior cerebral artery: Unremarkable. No occlusion or significant stenosis. No aneurysm. Left internal carotid artery: Occlusion of the left carotid siphon is again noted. Reconstitution of the supraclinoid left ICA is appreciated. Left middle cerebral artery: Unremarkable. No occlusion or significant stenosis. No aneurysm. Left anterior cerebral artery: Unremarkable. No occlusion or significant stenosis. No aneurysm. POSTERIOR CIRCULATION: Right vertebral artery: Unremarkable. No occlusion or significant stenosis. No aneurysm. Left vertebral artery: Unremarkable. No occlusion or significant stenosis. No aneurysm. Basilar artery: Unremarkable. No occlusion or significant stenosis. No aneurysm. Right posterior cerebral artery: Unremarkable. No occlusion or significant stenosis. No aneurysm. Left posterior cerebral artery: Unremarkable. No occlusion or significant stenosis. No aneurysm. IMPRESSION: No change since the prior study. Left ICA occlusion and [id number] right carotid siphon stenosis are again noted. PROCEDURE INFORMATION: Exam: CT Angiography Neck With Contrast Exam date and time: 04/25/2021 9:25 PM Age: 80 years old Clinical indication: Speech disturbance and weakness; Patient HX: Slurred speech. Facial droop. Lower ext weakness. ; Additional info: Right sided weakness TECHNIQUE: Imaging protocol: Computed tomography angiography of the neck with contrast. 3D rendering (Not supervised by radiologist): MIP and/or 3D reconstructed images were created by the technologist. Radiation optimization: All CT scans at this facility use at least one of these dose optimization techniques: automated exposure control; mA and/or kV adjustment per patient size (includes targeted exams where dose is matched to clinical indication); or iterative reconstruction. Contrast material: VISI 320; Contrast volume: 95 ml; Contrast route: INTRAVENOUS (IV); COMPARISON: CT angio headneck* [id number] 02/20/2021 7:57 AM RADIATION DOSE METRICS: Total DLP (mGy-cm): 2370.04 FINDINGS: Right common carotid artery: No stenosis. No dissection or occlusion. Right internal carotid artery: Near-complete occlusion of the right carotid bulb and right ICA origin are again seen. Right external carotid artery: Severe stenosis of the right ECA origin is noted. Left common carotid artery: Calcified plaque causes mild stenosis of the left common carotid artery. Left internal carotid artery: Chronic occlusion of the left ICA is again noted. Left external carotid artery: No occlusion or stenosis of the origin. Right vertebral artery: Multifocal mild stenosis of the right vertebral artery is again noted. No dissection or occlusion. Coincident external compression at the C5 transverse foramen causes moderate stenosis, unchanged. Left vertebral artery: Multifocal mild stenosis of the left vertebral artery is again noted. No dissection or occlusion. Coincident external compression at the C5 transverse foramen causes moderate stenosis, unchanged. CT/CT angio headneck* [id number] IMPRESSION: No significant change since the prior exam. Occlusion of the left ICA and near-complete occlusion of the right carotid bulb and right ICA origin are again noted. REFERENCES: NASCET CRITERIA. The degree of internal carotid artery stenosis is based on NASCET criteria. Normal is no stenosis. Mild is less than 50% stenosis. Moderate is 50-69% stenosis. Severe is 70% to 99% stenosis. Total occlusion is no detectable patent lumen. Radiation Dose CTDIVOL = (mGy): DLP = 2370.04~2370.04 (mGy-cm)
--- NOTE | 2021-04-25 21:21 | CTR_ITS ---
PROCEDURE INFORMATION: Exam: CT Head Without Contrast Exam date and time: 04/25/2021 9:25 PM Age: 80 years old Clinical indication: Speech disturbance and weakness, extremity and weakness, facial; Patient HX: Slurred speech. Facial droop. Lower ext weakness. ; Additional info: Symptoms of acute stroke TECHNIQUE: Imaging protocol: Computed tomography of the head without contrast. Radiation optimization: All CT scans at this facility use at least one of these dose optimization techniques: automated exposure control; mA and/or kV adjustment per patient size (includes targeted exams where dose is matched to clinical indication); or iterative reconstruction. Other technique: STROKE PROTOCOL was implemented. COMPARISON: CT head wo con* [id number] 04/18/2021 1:25 PM RADIATION DOSE METRICS: Total DLP (mGy-cm): 1602.18 FINDINGS: Brain: Mild atrophy and mild white matter chronic microvascular changes are noted. No hemorrhage or evidence of acute infarction is seen. Cerebral ventricles: No ventriculomegaly. Paranasal sinuses: Visualized sinuses are unremarkable. No fluid levels. Mastoid air cells: Visualized mastoid air cells are well aerated. Bones/joints: Unremarkable. No acute fracture. Soft tissues: Unremarkable. CT/CT head wo con* [id number] IMPRESSION: No acute intracranial abnormality. ASSESSMENT: ASPECTS ([place] Stroke Program Early CT Score) is 10. Radiation Dose CTDIVOL = (mGy): DLP = 1602.18 (mGy-cm)
--- NOTE | 2021-04-25 21:22 | ECG_ITS ---
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 Measurements Intervals [place] Rate: 70 P: 268 NH: 150 QRS: -25 QRSD: 151 T: 55 QT: 434 QTc: 471 Interpretive Statements ECTOPIC ATRIAL RHYTHM LEFT BUNDLE BRANCH BLOCK [120+ ms QRS DURATION, 80+ ms Q/S IN V1/V2, 85+ ms R IN I/aVL/V5/V6] Compared to ECG 04/19/2021 02:54:53 No significant changes Electronically Signed On 04-26-2021 18:44:07 CDT by Jaxon Fernandes M.D. [id number]
[2021-04-25 21:35] LABS: Basophils % 0.2 %; Eosinophils # 0.7 10^3/uL (0.0-0.8); Eosinophils % 6.3 %; Hemoglobin 8.6 g/dL (11.5-15.3); Lymphocytes # 1.5 10^3/uL (0.8-4.8); Lymphocytes % 14.3 %; Mean Corpuscular HGB Conc 31.9 g/dL (30.0-36.0); Mean Corpuscular Hemoglobin 27.3 pg (28.0-34.0); Mean Corpuscular Volume 85.7 fL (81-99); Mean Platelet Volume 8.9 fL (7.4-10.4); Monocytes % 9.7 %; Neutrophils % 69.2 %; Nucleated Red Blood Cells % 0 %; Platelet Count 591 10^3/cmm (130-400); Red Blood Count 3.15 10^6/uL (4.1-5.3); Red Cell Distribution Width 15.2 % (12.1-15.1); White Blood Count 10.4 10^3/uL (4.0-10.0)
--- NOTE | 2021-04-25 21:39 | CTR_ITS ---
PROCEDURE INFORMATION: Exam: CT Chest Without Contrast; Diagnostic Exam date and time: 04/25/2021 9:41 PM Age: 80 years old Clinical indication: Other: UTI. Chavo. ; Shortness of breath; Prior surgery; Surgery type: Gb. Mastectomy. Hysterectomy. ; Patient HX: Hypoxic. Chavo. History of UTI. Order added while injecting for cta head/neck. No further contrast given due to 2.0 creatinine. ; Additional info: Pneumonia/ hypoxia/ h/o uti/pyelo TECHNIQUE: Imaging protocol: Diagnostic computed tomography of the chest without contrast. Radiation optimization: All CT scans at this facility use at least one of these dose optimization techniques: automated exposure control; mA and/or kV adjustment per patient size (includes targeted exams where dose is matched to clinical indication); or iterative reconstruction. COMPARISON: CTA Chest-Pulmonary Emb [id number] 06/23/2019 1:03 PM RADIATION DOSE METRICS: Total DLP (mGy-cm): 1859.53 FINDINGS: Lungs: Bibasilar and scattered right upper lobe opacities are noted which may represent early pneumonia. Pleural spaces: Unremarkable. No pneumothorax. No pleural effusion. Heart: The heart is normal in size. Coronary artery and mitral annulus calcifications are noted. Aorta: Atherosclerotic changes are observed in the thoracic aorta. Mild aneurysmal dilatation of the descending thoracic aorta is again noted, which appears stable. No dissection Lymph nodes: A slightly prominent right axillary lymph node is again noted, which appears unchanged. Bones/joints: Unremarkable. No acute fracture. Soft tissues: Right mastectomy changes are appreciated. IMPRESSION: 1. Possible early multilobar pneumonia. 2. Atherosclerosis and coronary artery disease. 3. Mildly prominent, but stable, right axillary lymph node. PROCEDURE INFORMATION: Exam: CT Abdomen And Pelvis Without Contrast Exam date and time: 04/25/2021 9:41 PM Age: 80 years old Clinical indication: Other: UTI. Chavo. ; Shortness of breath; Prior surgery; Surgery type: Gb. Mastectomy. Hysterectomy. ; Patient HX: Hypoxic. Chavo. History of UTI. Order added while injecting for cta head/neck. No further contrast given due to 2.0 creatinine. ; Additional info: Pneumonia/ hypoxia/ h/o uti/pyelo TECHNIQUE: Imaging protocol: Computed tomography of the abdomen and pelvis without contrast. Radiation optimization: All CT scans at this facility use at least one of these dose optimization techniques: automated exposure control; mA and/or kV adjustment per patient size (includes targeted exams where dose is matched to clinical indication); or iterative reconstruction. COMPARISON: 04/19/2021 CT scan of the abdomen and pelvis without contrast RADIATION DOSE METRICS: Total DLP (mGy-cm): 1859.53 FINDINGS: Liver: Normal. No mass. Gallbladder and bile ducts: The gallbladder has been removed. No biliary ductal dilatation. Pancreas: Normal. No ductal dilation. Spleen: Normal. No splenomegaly. Adrenal glands: Normal. No mass. Kidneys and ureters: Unremarkable. No hydronephrosis. Stomach and bowel: No intestinal obstruction. A large amount of stool is present in the colon. Diverticulosis coli is seen, without evidence of diverticulitis. Appendix: The appendix is normal. Intraperitoneal space: Unremarkable. No free air. No significant fluid collection. Vasculature: Abdominal aortic aneurysm and aorto bi-iliac bypass graft are again noted. Bilateral renal artery stents are again seen. Lymph nodes: Unremarkable. No enlarged lymph nodes. Urinary bladder: Unremarkable as visualized. Reproductive: The uterus is absent. Bones/joints: Unremarkable. No acute fracture. Soft tissues: Unremarkable. CT/CT chest abd pel wo con IMPRESSION: 1. No acute abnormality is seen in the abdomen or pelvis. 2. Constipation and diverticulosis coli. Radiation Dose CTDIVOL = (mGy): DLP = 1859.53~1859.53 (mGy-cm)
[2021-04-25 21:49] LABS: INR 1.17 (0.8-1.2)
[2021-04-25 21:50] LABS: Partial Thromboplastin Time 31.9 SECONDS (23.9-36.7)
[2021-04-25 22:00] VITALS: PULSE 70; O2SAT 96
[2021-04-25 22:01] LABS: Troponin(5th) Baseline 21 ng/L (0-10)
[2021-04-25 22:05] LABS: Add Urine Microscopic? NO; Charge for UA Resulting for Rev
[2021-04-25 22:06] VITALS: BP 147/84; PULSE 98; RESP 26; O2SAT 100
[2021-04-25 22:08] LABS: Alanine Aminotransferase 16 U/L (0-33); Albumin Level 3.2 g/dL (3.5-5.2); Alkaline Phosphatase 180 IU/L (35-105); Anion Gap 15.4 (5-19); Aspartate Amino Transferase 14 U/L (0-32); Blood Urea Nitrogen 19 mg/dL (8-23); Calcium 8.7 mg/dL (8.5-10.5); Carbon Dioxide 32 mmol/L (22-29); Chloride 92 mmol/L (98-107); Globulin 3.2 g/dL (1.3-4.6); Glucose 60 mg/dL (65-115); NT Pro B Type Natriuretic Pept 2780 pg/mL (0-450); Osmolality Calculated 280 mOsm/kg (285-295); Potassium 4.4 mmol/L (3.5-5.1); Sodium 135 mmol/L (136-145); Total Bilirubin 0.4 mg/dL (0.15-1.2); Total Protein 6.4 g/dL (6.6-8.7)
[2021-04-25 22:13] LABS: Bilirubin Urine Neg (Negative); Blood Urine Neg (Negative); Glucose Urine UA Norm (Normal); Ketones Urine Negative (Negative); Leukocyte Esterase Urine Negative (Negative); Nitrate Urine Negative (Negative); Protein Urine Neg (Negative); Urine Appearance Clear (CLEAR); Urine Color Yellow (Yellow); Urobilinogen Urine Norm (Negative); pH Urine 7 (5-7)
[2021-04-25 22:16] LABS: Amphetamines Screen Urine Negative (Negative); Barbiturates Screen Urine Negative (Negative); Benzodiazepines Screen Urine Negative (Negative); Cocaine Screen Urine Negative (Negative); Opiate Screen Urine Negative (Negative); PCP Screen Urine Negative (Negative); THC Screen Urine Positive (Negative)
[2021-04-25 23:06] VITALS: BP 128/57; PULSE 99; RESP 21; O2SAT 96
[2021-04-25 23:15] VITALS: BP 116/49; PULSE 78; RESP 16; TEMP 36.4; O2SAT 94
--- NOTE | 2021-04-25 23:16 | P.HP_ITS ---
Providers/Chief Complaint Primary Care Provider: Patti Irwin DO Chief Complaint: possible stroke, inability to walk History of Present Illness Paloma Slater is a 80 year old female who has multiple comorbid conditions including bilateral extracranial artery stenosis, hypertension dyslipidemia, nicotine dependence, type 2 diabetes presented today with chief complaint of right arm and leg weakness. Of note, she has complete occlusion of left extracranial ICA high-grade stenosis of right 84%, bilateral vertebral artery stenosis greater than 50%, occluded left intracranial ICA, high-grade stenosis intracranially right ICA. Focal thrombus with occlusion near the junction of the right innominate with subclavian and common carotid. Patient left medical advice on 04/20 when she was being managed for pneumonia prior n ephritis and altered mental status. Her Plavix was held on discharge because of anemia she was discharged on aspirin and Plavix. Hemoglobin at the time of discharge 8.8. Patient is stating that today when she was try to get out of the bathroom she started experiencing weakness in her legs bilaterally, she did not fall she was just not able to move her legs at all and for about half an hour her speech was abnormal which was described slurred by the EMS, she did not notice any numbness or tingling in her extremities. Her symptoms started 30 minutes before her arrival in the ER. By the time she was evaluated by the ER physician her NIH score was 5 for minor facial paralysis right arm drift, right lower extremity limited motion against gravity and ataxia, she was not a TPA candidate for low NIH score Case was discussed with Dr. Potter after code stroke. CTA head and neck was obtained as well. Her symptoms resolved spontaneously as she discovered about her blood sugar of 60 mg/dL. Her last insulin dosage was yesterday. Diagnosis in the ER revealed mild leukocytosis, chronic anemia, chronic kidney disease, negative delta troponin, BNP 2700, left-sided community-acquired pneumo kunal, urine looks normal, U tox positive for marijuana, by the time I evaluated her NIH 0, CTA head and neck: No significant change since the prior exam. Occlusion of the left ICA and near-complete occlusion of the right carotid bulb and right ICA origin are again not CT chest abdomen pelvis:IMPRESSION: 1. Possible early multilobar pneumonia. 2. Atherosclerosis and coronary artery disease. 3. Mildly prominent, but stable, right axillary lymph node. Review of Systems Const: Denies: fever(s) Eyes: Denies: change in vision ENMT: Denies: throat pain Card: Denies: chest pain Resp: Denies: dyspnea GI: Denies: abdominal pain : Denies: flank pain Musc: Denies: neck pain Skin/Breast: Denies: rash Neuro: Reports: numbness in extremities, weakness in extremities, difficulty walking and Slurred speech present Psych: Reports: anxiety and depression Endo: Denies: polyuria Leonardo/Lymph: Denies: easy bruising All/Imm: Denies: urticaria Medications/Allergies Home Medications Medication Instructions Recorded Confirmed Last Taken Type montelukast 10 mg tablet 10 mg PO DAILY 01/24/20 04/18/21 04/17/21 History clopidogrel 75 mg tablet 75 mg PO DAILY 90 Days #90 tab 04/21/20 04/18/21 04/18/21 Rx potassium chloride 10 mEq 20 meq PO DAILY #180 tab 11/02/20 04/18/21 04/18/21 Rx tablet,extended release(part/cryst) carvedilol 3.125 mg PO BID 02/20/21 04/18/21 04/18/21 History oxycodone 10 mg PO QID PRN 02/20/21 04/18/21 Unknown History aspirin 325 mg PO DAILY #30 tab 02/21/21 04/18/21 04/17/21 Rx atorvastatin 80 mg tablet 80 mg PO DAILY #90 tab 03/05/21 04/18/21 04/17/21 Rx furosemide 20 mg tablet 60 mg PO DAILY@0800 #90 tab 03/05/21 04/18/21 04/18/21 Rx cetirizine 10 mg PO DAILY@0800 04/18/21 04/18/21 04/18/21 History lisinopril 10 mg PO DAILY@0800 04/18/21 04/18/21 04/18/21 History loratadine 10 mg PO DAILY PRN 04/18/21 04/18/21 Unknown History Lantus Solostar U-100 Insulin 20 unit SUBCUT DAILY #15 ml 04/20/21 04/18/21 02/19/21 Rx docusate sodium [DOK] 100 mg PO BID 30 Days #60 cap 04/20/21 Unknown Rx levofloxacin 750 mg PO Q48H 6 Days #3 tab 04/20/21 Unknown Rx pantoprazole 40 mg PO Q12H 30 Days #60 tab 04/20/21 04/18/21 04/17/21 Rx polyethylene glycol 3350 17 g PO DAILY 30 Days #30 ea 04/20/21 Unknown Rx sucralfate 1 g PO AC&BEDTIME 30 Days #60 tab 04/20/21 Unknown Rx Allergies Allergy/AdvReac Type Severity Reaction Status Date / Time adhesive tape Allergy Unknown Unknown Verified 04/09/21 13:39 bacitracin Allergy Unknown Unknown Verified 04/09/21 13:39 [From Neosporin ([id number])] codeine Allergy Unknown Unknown Verified 04/09/21 13:39 neomycin Allergy Unknown Unknown Verified 04/09/21 13:39 [From Neosporin ([id number])] penicillamine Allergy Unknown Unknown Verified 04/09/21 13:39 Penicillins Allergy Unknown Unknown Verified 04/09/21 13:39 polymyxin B Allergy Unknown Unknown Verified 04/09/21 13:39 [From Neosporin ([id number])] prochlorperazine Allergy Unknown Unknown Verified 04/09/21 13:39 [From Compazine] Sulfa (Sulfonamide Allergy Unknown Unknown Verified 04/09/21 13:39 Antibiotics) PFSH Acute PFSH: Medical History AAA (abdominal aortic aneurysm) Status post stent graft repair B12 deficiency Bilateral lower extremity edema Breast CA CHF (congestive heart failure) Diastolic/Systolic EF 37% 12/14 Chronic pain COPD (chronic obstructive pulmonary disease) CVA (cerebral vascular accident) Descending thoracic aortic 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, managed as type 2 Dyslipidemia History of nonmelanoma skin cancer History of stent insertion of renal artery HTN (hypertension) Nicotine dependence, cigarettes, with unspecified nicotine-induced disorders Obesity Renal artery stenosis Seasonal allergies Surgical History History of aortic aneurysm repair S/P cholecystectomy S/P hysterectomy S/P mastectomy S/P tonsillectomy Family History Other Stroke Social History Smoking and tobacco status: current every day smoker cigarettes Packs smoked per day: 0.5 Alcohol intake: never Vitals/I&O/Wt Last Vital Signs Temp 99.1 F 04/25/21 21:11 Pulse 78 04/25/21 21:11 Resp 16 04/25/21 21:11 BP 128/57 04/25/21 21:11 Pulse Ox 94 04/25/21 21:11 Weight last 48 hrs Weight 78.925 kg Physical Exam Narrative: EXAM NARRATIVE: Patient was sleeping when I entered the room, she woke up as soon as I turn on the room lights, She put her hand on her eyes because of irritation NIH 0 she is awake alert oriented x3 GCS 15 no neurological deficit no cerebellar signs No motor weakness noticed in upper or lower extremities, Sensations intact as well to crude touch Pupils equal reactive to light, patient is edentulous however I do not appreciate any facial asymmetry no active drooling of saliva S1, S2 sinus rhythm no murmur appreciated Abdomen distended central obesity nontender abdomen Lower extremity pitting edema 2+ bilaterally with pedal edema Appropriate mood and affect Did not appreciate carotid bruit No joint swelling cellulitis or gangrene of lower extremities Data : 04/25/21 21:23 04/25/21 21:23 A&P Assessment and plan (1) Transient cerebral ischemia: Status: Acute (2) Chronic kidney disease: Status: Acute (3) Pneumonia: Status: Acute (4) Diabetic peripheral neuropathy: Status: Acute (5) Anemia: Status: Acute (6) Carotid artery disease: Status: Acute (7) Atopic dermatitis: Status: Acute Qualifiers: Atopic dermatitis type: unspecified Qualified Code(s): L20.9 - Atopic dermatitis, unspecified (8) Bilateral lower extremity edema: Status: Acute (9) COPD (chronic obstructive pulmonary disease): Status: Acute Additional A&P Information TIA Bilateral leg weakness, facial asymmetry and slurred speech improved by the time she arrived in the ER, blood glucose 60 mg/dL, NIH 0 at the time of my evaluation, not a TPA candidate, her symptoms started 30 minutes before her arrival in the ER, code stroke was called Dr. Potter was notified about the case Patient was taking aspirin and atorvastatin however Plavix was discontinued due to concern of active bleeding and anemia her hemoglobin has stayed stable her pressure is within normal range 128/57 mmHg I would go ahead and start dual ant iplatelet therapy along atorvastatin Considering chronically occluded extra cranial ICA findings her candidacy for surgical intervention is low, she would like to have her case discussed with Dr. Maradiaga as well She is currently smoking 2 to 3 cigarettes a day Her hemoglobin A1c is less than 7 considering her age I would be comfortable keeping it within range of 7-8 considering episode of hypoglycemia, stop long- acting insulin, we will keep her on low-dose sliding scale for now PT evaluation Community-acquired pneumonia Left lower lobe pneumonia, dense consolidation, right lower lobe looks slightly better as compared to previous x-ray, she also has fluid overload clinically, high BNP noted I would go ahead and start Lasix Continue ceftriaxone and azithromycin Request urine antigen Her symptoms of UTI resolved previous urine culture revealed E. coli however currently she is not experiencing any active symptoms UA looks improved as compared to previous sample Chronic kidney disease without acute exacerbation, she seems to be around her baseline creatinine Chronic normocytic anemia: Patient is denying active bleeding, hemoglobin 8.6 normal ferritin and iron studies, this seems secondary to anemia of chronic disease, phosphorus 3.4 calcium 8.7, normal TSH Check B12 level because of her history of neuropathy COPD without exacerbation Patient uses oxygen intermittently at home she is actively smoking No acute exacerbation currently saturating well on 2 L nasal cannula No acute respiratory distress Patient is denying active fever productive cough increased sputum production Full code DVT prophylaxis SCDs because of anemia, continue Protonix 40 mg p.o. 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
[2021-04-25 23:21] VITALS: PULSE 86
--- NOTE | 2021-04-25 23:22 | ECG_ITS ---
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 Measurements Intervals [place] Rate: 66 P: 260 MT: 155 QRS: -20 QRSD: 149 T: 53 QT: 452 QTc: 476 Interpretive Statements ECTOPIC ATRIAL RHYTHM LEFT BUNDLE BRANCH BLOCK [120+ ms QRS DURATION, 80+ ms Q/S IN V1/V2, 85+ ms R IN I/aVL/V5/V6] Compared to ECG 04/25/2021 22:02:52 No significant changes Electronically Signed On 04-26-2021 19:00:23 CDT by Jaxon Fernandes M.D. [id number]
--- NOTE | 2021-04-25 23:22 | W.ED.NEUROSD ---
HPI - Neuro Symptoms/Deficit General: Chief Complaint: Neuro Symptoms/Deficit Stated Complaint: possible stroke, inability to walk Time Seen by Provider: 04/25/21 20:58 History of Present Illness: HPI Narrative: The patient is a 80-year-old female who comes to the ER with neurologic deficits. She complains of right-sided facial droop, slurred speech, right arm and right leg weakness for approximately 1 hour at home prior to arrival. She signed out AGAINST MEDICAL ADVICE 5 days ago from this facility where she was being treated for altered mental status, pneumonia, kidney injury, UTI, COPD, and CHF. She also was admitted recently before that with neurologic deficits. Also on arrival her blood glucose is in the 60s. She says at home she felt weak and dropped slowly to the floor. She did not pass out she says. Onset (ago): hour(s) (1) Timing confirmed by: family member Location: speech, right arm and right leg History of same: Yes Severity: moderate Quality: weak Relieving factors: none Associated symptoms: Deny chest pain or headache(s) Review of Systems General: Reports: 10 or more systems reviewed and unremarkable except in HPI and below Const: Denies: fatigue Eyes: Denies: change in vision, blurry vision or eye redness ENMT: Denies: throat pain, swelling of lips/tongue, ear or mastoid pain or nasal congestion Card: Denies: chest pain, palpitations, irregular heart rhythm, edema, dyspnea on exertion or orthopnea Resp: Denies: dyspnea, productive cough or non-productive cough GI: Denies: abdominal pain, diarrhea or GI cramping : Denies: flank pain, difficulty voiding, urinary frequency or urinary urgency Musc: Denies: neck pain, back pain, extremity pain, joint pain, joint redness, limited range of motion or muscle weakness Skin/Breast: Denies: rash, pruritus, erythema, skin pain or skin tenderness Neuro: Reports: weakness in extremities; Denies: headache(s), numbness in extremities, sensory changes, difficulty walking, dizziness, confusion or Slurred speech present Psych: Denies: anxiety or depression Endo: Denies: polyuria All/Imm: Denies: urticaria, throat swelling or tongue swelling PFS ED PFSH: Medical History AAA (abdominal aortic aneurysm) Status post stent graft repair B12 deficiency Bilateral lower extremity edema Breast CA CHF (congestive heart failure) Diastolic/Systolic EF 37% 12/14 Chronic pain COPD (chronic obstructive pulmonary disease) CVA (cerebral vascular accident) Descending thoracic aortic 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, managed as type 2 Dyslipidemia History of nonmelanoma skin cancer History of stent insertion of renal artery HTN (hypertension) Nicotine dependence, cigarettes, with unspecified nicotine-induced disorders Obesity Renal artery stenosis Seasonal allergies Surgical History History of aortic aneurysm repair S/P cholecystectomy S/P hysterectomy S/P mastectomy S/P tonsillectomy Family History Other Stroke Social History Smoking and tobacco status: current every day smoker cigarettes Packs smoked per day: 0.5 Alcohol intake: never Physical Exam Const: COMMON NORMALS: no acute distress, patient oriented x3, no limitations, alert and well nourished GENERAL APPEARANCE: cooperative, well kempt, well developed and anxious NUTRITIONAL APPEARANCE: overweight ORIENTATION/CONSCIOUSNESS: Yes awake, Yes oriented to person, Yes oriented to place and Yes oriented to time HENMT: COMMON NORMALS: normocephalic, external ears normal and Normal external nose present HEAD & SCALP: normal to inspection and normocephalic NOSE: Normal external nose present EXTERNAL EAR: Yes external ears normal MOUTH: Normal oral and palatal mucosa present THROAT: posterior oropharynx normal Eye: COMMON NORMALS: Equal, round and reactive pupils present and EOMs intact bilaterally GENERAL EYE: appearance normal, both eyes and all related structures PUPIL: Yes Equal, round and reactive pupils present Neck/C-Spine: COMMON NORMALS: full ROM, no lymphadenopathy, no meningeal signs and no JVD GENERAL: Yes normal visual inspection Lymph: LYMPHATIC: no lymphadenopathy noted Chest: COMMONS NORMALS: normal inspection of the chest and normal palpation of entire chest wall Resp: COMMON NORMALS: normal respiratory effort, No retractions, No use of accessory muscles, clear to auscultation bilaterally and percussion normal EFFORT & INSPECTION: Yes able to speak in complete sentences AUSCULTATION: clear to auscultation bilaterally PERCUSSION: percussion normal Cardio: COMMON NORMALS: no JVD, regular rate, regular rhythm, S1 normal heart sound present, S2 normal heart sound present and Peripheral pulses 2+ throughout RATE: regular rate RHYTHM: regular rhythm HEART SOUNDS: S1 normal heart sound present and S2 normal heart sound present PERIPHERAL PULSES: Peripheral pulses 2+ throughout GI: COMMON NORMALS: Normal to inspection, nondistended, normoactive bowel sounds present, Soft to palpation, non-tender and no masses INSPECTION: Yes normal to inspection PALPATION: Yes Soft to palpation : COMMON NORMALS: Yes no CVA tenderness BLADDER/KIDNEY EXAM: Yes no CVA tenderness Back/Pelvis: COMMON NORMALS: no CVA tenderness, thoracic and lumbar spine normal to inspection, no thoracic nor lumbar tenderness and thoraco-lumbar ROM normal Extremity: COMMON NORMALS: normal to inspection, full ROM, capillary refill normal, no joint enlargement and no pedal edema GENERAL: Yes normal exam except as noted Neuro: COMMON NORMALS: patient oriented x3, CN's II-XII intact bilaterally, moves all extremities, no focal motor deficits, no sensory deficits noted and gait normal SENSORIUM/ORIENTATION: Yes alert, Yes oriented to person, Yes oriented to place and Yes oriented to time MENINGEAL SIGNS: Yes no meningeal signs OTHER: On arrival the patient has mild facial droop, right upper extremity power 4.5 out of 5. Right lower extremity power 4 out of 5. Sensation intact in all extremities NIHSS on arrival was 4 to 5: Minor facial paralysis 1, Right arm drift 1, Right lower extremity limited motion against gravity 2, questionable ataxia to RLE 1 = 4-5. Psych: COMMON NORMALS: mental status grossly normal, Normal thought process present, cooperative, normal affect and speech normal APPEARANCE: Yes well kempt ATTITUDE: Yes calm SPEECH: Yes normal speech THOUGHT PROCESS: Normal thought process present Skin: COMMON NORMALS: no rashes or lesions noted GENERAL SKIN EXAM: no rashes or lesions noted Course Vital Signs: Vital signs: Vital Signs Temperature 99.1 F 04/25/21 21:11 Pulse Rate 78 04/25/21 21:11 Respiratory Rate 16 04/25/21 21:11 Blood Pressure 128/57 04/25/21 21:11 Pulse Oximetry 94 04/25/21 21:11 MDM - Neuro Symptoms/Deficit MDM Narrative: Medical decision making narrative: This patient came in with some neurologic deficits. She had mild right facial droop, right arm drift, right lower extremity limited motion against gravity, possible ataxia in the right lower extremity but difficult to tell. Her NIH stroke scale was 4-5. Glucose was 60 on arrival. She was sent for imaging. When she returned her symptoms had spontaneously resolved. She has significant vascular disease in her head and neck. CT angiogram showed chronic left ICA occlusion and mild to moderate right carotid siphon stenosis. Also near complete occlusion of the right carotid bulb and right ICA origin. Discussed case with Dr. Potter who recommended no TPA as her symptoms have resolved. She is also hypoxic on 3 L in the mid 80s. Imaging does show bilateral pneumonia. She was started on ceftriaxone and azithromycin. She wears 3 L chronically. After she calmed down her oxygenation improved to the low 90s. She also has mild elevation of white cell count at 10.4. Elevated creatinine 1.3. Hemoglobin 8.6. Discussed with Dr. Lambert who accepts for observation. Lab Data: Labs: Lab Results 04/25/21 04/25/21 04/25/21 Range/Units 21:23 21:23 21:23 WBC 10.4 H (4.0-10.0) 10^3/ uL RBC 3.15 L (4.1-5.3) 10^6/u L Hgb 8.6 L (11.5-15.3) g/dL Hct 27.0 L (37.0-47.0) % MCV 85.7 (81-99) fL MCH 27.3 L (28.0-34.0) pg MCHC 31.9 (30.0-36.0) g/dL RDW 15.2 H (12.1-15.1) % Plt Count 591 H (130-400) 10^3/c mm MPV 8.9 (7.4-10.4) fL Neut % (Auto) 69.2 % Lymph % (Auto) 14.3 % [place] % (Auto) 9.7 % Eos % (Auto) 6.3 % Baso % (Auto) 0.2 % Neut # (Auto) 7.20 (1.8-7.7) 10^3/u L Lymph # (Auto) 1.5 (0.8-4.8) 10^3/u L [place] # (Auto) 1.0 H (0.2-0.9) 10^3/u L Eos # (Auto) 0.7 (0.0-0.8) 10^3/u L Baso # (Auto) 0.0 (0.0-0.1) 10^3/u L Nucleated RBC % (a uto) 0 % Nucleated RBCs # 0.0 /100WBC PT 15.30 H (12.1-14.9) SECO NDS INR 1.17 (0.8-1.2) APTT 31.9 (23.9-36.7) SECO NDS Sodium 135 L (136-145) mmol/L Potassium 4.4 (3.5-5.1) mmol/L Chloride 92 L (98-107) mmol/L Carbon Dioxide 32 H (22-29) mmol/L Anion Gap 15.4 (5-19) BUN 19 (8-23) mg/dL Creatinine 1.3 H (0.5-0.9) mg/dL GFR Calculation Not Reportable Glucose 60 L (65-115) mg/dL Calculated Osmolal ity 280 L (285-295) mOsm/k g Calcium 8.7 (8.5-10.5) mg/dL Total Bilirubin 0.4 (0.15-1.2) mg/dL AST 14 (0-32) U/L ALT 16 (0-33) U/L Alkaline Phosphata se 180 H (35-105) IU/L Troponin T Baselin e (0-10) ng/L NT-Pro-B Natriuret Pep 2780 H (0-450) pg/mL Total Protein 6.4 L (6.6-8.7) g/dL Albumin 3.2 L (3.5-5.2) g/dL Globulin 3.2 (1.3-4.6) g/dL Urine Color (Yellow) Urine Appearance (CLEAR) Urine pH (5-7) Ur Specific Gravit y (1.005-1.030) Urine Protein (Negative) Urine Glucose (UA) (Normal) Urine Ketones (Negative) Urine Blood (Negative) Urine Nitrate (Negative) Urine Bilirubin (Negative) Urine Urobilinogen (Negative) mg/dL Ur Leukocyte Nickie ase (Negative) Urine Opiates Scre en (Negative) ng/mL Ur Barbiturates Sc reen (Negative) ng/mL Ur Phencyclidine S crn (Negative) ng/mL Ur Amphetamines Sc reen (Negative) ng/mL U Benzodiazepines Scrn (Negative) ng/mL Urine Cocaine Scre en (Negative) ng/mL U Marijuana (THC) Screen (Negative) ng/mL 04/25/21 04/25/21 04/25/21 Range/Units 21:23 21:56 21:56 WBC (4.0-10.0) 10^3/ uL RBC (4.1-5.3) 10^6/u L Hgb (11.5-15.3) g/dL Hct (37.0-47.0) % MCV (81-99) fL MCH (28.0-34.0) pg MCHC (30.0-36.0) g/dL RDW (12.1-15.1) % Plt Count (130-400) 10^3/c mm MPV (7.4-10.4) fL Neut % (Auto) % Lymph % (Auto) % [place] % (Auto) % Eos % (Auto) % Baso % (Auto) % Neut # (Auto) (1.8-7.7) 10^3/u L Lymph # (Auto) (0.8-4.8) 10^3/u L [place] # (Auto) (0.2-0.9) 10^3/u L Eos # (Auto) (0.0-0.8) 10^3/u L Baso # (Auto) (0.0-0.1) 10^3/u L Nucleated RBC % (a uto) % Nucleated RBCs # /100WBC PT (12.1-14.9) SECO NDS INR (0.8-1.2) APTT (23.9-36.7) SECO NDS Sodium (136-145) mmol/L Potassium (3.5-5.1) mmol/L Chloride (98-107) mmol/L Carbon Dioxide (22-29) mmol/L Anion Gap (5-19) BUN (8-23) mg/dL Creatinine (0.5-0.9) mg/dL GFR Calculation Glucose (65-115) mg/dL Calculated Osmolal ity (285-295) mOsm/k g Calcium (8.5-10.5) mg/dL Total Bilirubin (0.15-1.2) mg/dL AST (0-32) U/L ALT (0-33) U/L Alkaline Phosphata se (35-105) IU/L Troponin T Baselin e 21 H (0-10) ng/L NT-Pro-B Natriuret Pep (0-450) pg/mL Total Protein (6.6-8.7) g/dL Albumin (3.5-5.2) g/dL Globulin (1.3-4.6) g/dL Urine Color Yellow (Yellow) Urine Appearance Clear (CLEAR) Urine pH 7 (5-7) Ur Specific Gravit y 1.000 L (1.005-1.030) Urine Protein Neg (Negative) Urine Glucose (UA) Norm (Normal) Urine Ketones Negative (Negative) Urine Blood Neg (Negative) Urine Nitrate Negative (Negative) Urine Bilirubin Neg (Negative) Urine Urobilinogen Norm (Negative) mg/dL Ur Leukocyte Nickie ase Negative (Negative) Urine Opiates Scre en Negative (Negative) ng/mL Ur Barbiturates Sc reen Negative (Negative) ng/mL Ur Phencyclidine S crn Negative (Negative) ng/mL Ur Amphetamines Sc reen Negative (Negative) ng/mL U Benzodiazepines Scrn Negative (Negative) ng/mL Urine Cocaine Scre en Negative (Negative) ng/mL U Marijuana (THC) Screen Positive H (Negative) ng/mL Discharge Plan Discharge Patient Disposition: Placed in Observation Clinical Impression: Transient cerebral ischemia, Anemia, Chronic kidney disease, Pneumonia Coding Level of Care Code ED Safety Pin 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
[2021-04-25 23:34] LABS: Glucose Point of Care 67 mg/dL (70-110)
[2021-04-25 23:34] LABS: Glucose Point of Care 69 mg/dL (70-110)
[2021-04-25 23:39] LABS: Troponin 5 2HR 19.58 ng/L (0-10)
[2021-04-25 23:47] LABS: Troponin 5 2HR Delta -1.42 ABS# (0-10)
[2021-04-26] VITALS (13 sets, daily range): BP systolic 105–139; BP diastolic 54–80; PULSE 64–74; RESP 16–20; TEMP 36.4–36.7; O2SAT 71–100
[2021-04-26] MEDS: cefTRIAXone 1,000 MG in sodium chloride 0.9% (plus) 50 ML 100 MG IV (00:48)
[2021-04-26] MEDS: azithromycin 500 MG in sodium chloride 0.9% 250 ML 250 MG IV (01:02)
[2021-04-26] MEDS: pantoprazole DR 40 mg Tablet PO ×2 (04:06→14:40)
[2021-04-26] MEDS: sucralfate 1 gm Tablet PO ×4 (06:42→21:56)
[2021-04-26 06:57] LABS: Glucose Point of Care 101 mg/dL (70-110)
[2021-04-26] MEDS: oxyCODONE 5 mg IR Tab/Cap 10 MG PO ×3 (07:09→21:56)
[2021-04-26] MEDS: azithromycin 250 mg Tablet 500 MG PO (07:57)
[2021-04-26] MEDS: carvedilol 3.125 mg Tablet PO ×2 (07:57→16:51)
[2021-04-26] MEDS: aspirin 325 mg Tablet PO (07:57)
[2021-04-26] MEDS: polyethylene glycol 3350 Pkt 17 gm PO (07:57)
[2021-04-26] MEDS: atorvastatin 40 mg Tablet 80 MG PO (07:58)
[2021-04-26] MEDS: FUROsemide 20 mg Tablet 40 MG PO (07:58)
[2021-04-26] MEDS: sennosides-docusate Tablet 1 TAB PO (07:58)
[2021-04-26] MEDS: clopidogrel 75 mg Tablet PO (08:02)
[2021-04-26] MEDS: insulin glargine 100 units/1 mL 8 UNIT SUBCUT (08:03)
--- NOTE | 2021-04-26 09:03 | PM.SAN ---
Stroke Alert Activation ED Arrival Date: 04/25/21 Other Last Known Well Infomation: I provided telemetry stroke coverage for this 80-year-old woman who arrived with a complaint of right-sided weakness. I called the emergency department immediately after the stroke activation occurred at 9:[address] Sandra returned my call and explained that he was on his way to CAT scan with this patient who reportedly had right-sided weakness. Soon it was determined that her blood sugar was 60 and that was treated. He did not call me back until an hour later after he had completed CT angiogram and her CT of the head was negative. Her symptoms had completely resolved but he was considering whether or not to transfer her and we discussed options. I advised that the patient be worked up for metabolic disorder or other contributors to her TIA but that most likely, her hypoglycemia combined with underlying left carotid occlusion and right carotid stenosis was responsible. I recommended outpatient neurologic follow-up. Critical Care Time Critical Care Time: less than 30 mins Coding Level of Care Code Acute Group Segment Consultant for Betty Vela
--- NOTE | 2021-04-26 10:25 | PC.CHAP ---
Pastoral Care Encounter/Spiritual Assessment Type of Contact [] Declined time broker visit [] Patient/Family/Request visit [] Outpatient visit [] Follow-up visit [] Physician referral [] Code/Alert [x] Routine visit [] Staff referral [] Actively dying [] Patient sleeping [] Family support [] [] Out of room [] Palliative care [] [x] Receiving care in room [] Pre-surgical visit [] Trauma [x] Long length of stay [] ICU visit [] Other: Relational/Emotional Strength [x] Patient feels connected with others/family/visitors/staff [] Distress [] Loneliness/isolation [] Abandonment Spirituality of Patient [x] Person of Fidelina [] Attends Episcopal of their Fidelina [x] Believes in Prayer [] Reads Bible or Hinduism materials [] There are Spiritual issues to be addressed Welding Operator Interventions [x] Prayer [x] Active listening [x] Non-anxious presence [x] Spiritual/emotional support [] Crisis/trauma care [x] Spiritual counseling [] Bereavement support [] Provided bereavement packet [] Provided Bible/devotional materials [] Provided toy/stuffed animal, coloring book to patient or family member [] Provided Communion [] Anointing/[place] [] Salvation [x] Completed spiritual assessment [] Other: Impact on Illness or Injury [] Angry [] Fearful [x] Anxious [] Often cries [] Exhaustion [] Unable to work [] Unable to attend zoroastrian [] Unable to walk/stand [] Unable to read [] Unable to drive [] Unable to eat/drink [] Unable to sleep [] Unable to be with family [] Patient intubated [] Other: Summary she is feeling better,doesn't know about her healing process, has a good attitude going home soon Time spent with patient 10 mins
--- NOTE | 2021-04-26 10:26 | P.PN_ITS ---
Subjective Subjective: Interval history: Admitted overnight. Labs and H&P noted. Patient states she takes Lantus 28 units at night and glipizide in morning. Usual blood sugar numbers at home fasting mostly ranging less than 120. She states her numbers less than 90. She states she has been having cough on and off. She states usually she requires oxygen only when she feels out of breath. She uses up to 2 to 3 L whenever she needs. Patient at present denies any nausea vomiting, headache, dizziness today morning patient was off oxygen her saturation dropped to 70. Today morning patient r eceived 8 units of Lantus before could be seen. Her blood sugar early in the morning was 101 and last night was 67. Vitals/I&O/Wt Last Vital Signs Temp 97.6 F 04/26/21 07:21 Pulse 65 04/26/21 07:21 Resp 18 04/26/21 07:21 BP 112/77 04/26/21 07:21 Pulse Ox 98 04/26/21 07:21 04/25/21 04/26/21 04/26/21 22:59 06:59 14:59 Intake Total 300 / 300 360 / 360 Output Total 250 / 250 100 / 100 Balance 50 / 50 260 / 260 Weight last 48 hrs Weight 78.925 kg Physical Exam Narrative: EXAM NARRATIVE: General: No acute distress, AO x3, on 3 L nasal cannula saturating 94% HEENT: PERRLA, pupils bilaterally equal and reactive Chest: Normal vesicular breath sounds, coarse crackles present bilaterally in the posterior region right more than left, equal good air entry bilaterally CVS: S1-S2 regular soft pansystolic murmur at apex, no tachycardia, no gallops, no rubs Abdomen: Soft, nontender, no organomegaly, bowel sounds present Neuro: No focal deficits, no facial deformity, AO x3, power 5/5 in all limbs Data : 04/25/21 21:23 04/25/21 21:23 Micro: Microbiology 04/26/21 Unknown Bacterial Antigens - Final Urine,Voided 04/26/21 Unknown Legionella Urinary Antigen - Final Urine,Voided A&P Assessment and plan (1) Hypoglycemia: Status: Acute (2) Transient cerebral ischemia: Status: Acute (3) Pneumonia: Status: Acute (4) Anemia: Status: Acute (5) Carotid artery disease: Status: Acute (6) Bilateral lower extremity edema: Status: Acute (7) COPD (chronic obstructive pulmonary disease): Status: Acute (8) Atopic dermatitis: Status: Acute Qualifiers: Atopic dermatitis type: unspecified Qualified Code(s): L20.9 - Atopic dermatitis, unspecified (9) Diabetic peripheral neuropathy: Status: Acute (10) Chronic kidney disease: Status: Acute (11) CHF (congestive heart failure): Status: Acute (12) AAA (abdominal aortic aneurysm): Status: Acute Qualifiers: Presence of rupture: without rupture Qualified Code(s): I71.4 - Abdominal aortic aneurysm, without rupture (13) HTN (hypertension): Status: Acute (14) Diabetes 1.5, managed as type 2: Status: Acute Additional A&P Information TIA: Patient had symptoms on presentation to the ER. At that time her next blo od sugar was 67. Does not have any similar symptoms at present. Unfortunately not on telemetry overnight. Start patient on telemetry. Frequent neuro checks. CT head results appreciated. Patient has chronic occlusion of external ICA. Patient patient have to follow- up with an intervention surgeon at [place]. Patient is awaiting referral from the primary care provider. Symptoms most likely secondary to hypoglycemia. Hypoxia: Most likely secondary to exacerbation of CHF with resolving community- acquired pneumonia. Procalcitonin negative, bacterial antigen, urine Legionella negative. Patient was recently discharged on oral levofloxacin which she has finished. Check MRSA swab, sputum sample. For now continue with azithromycin and ceftriaxone. If patient remains afebrile without leukocytosis for next 24 hours. We will stop IV antibiotics. Patient states she has not been taking Lasix since last discharge. IV Lasix 40 mg daily stat. Strict input output charting, daily weights. Oxygen supplementation keeping saturation over 90%. Type 2 diabetes mellitus: Patient take glipizide and Lantus 28 units at home. Patient states that she did not eat her dinner prior to her having symptoms last night. HbA1c checked recently 6.8. Patient received 8 units Lantus caustic room attendant. For now will monitor blood sugar in next 24 hours and see how much insulin she will need in next 24 hours and decide about how much Lantus she will need as an outpatient. Most likely patient should stop glipizide as an outpatient because of labile creatinine. CKD: Baseline creatinine seems to be around 1.2-1.6. Creatinine on last discharge as high as 2.8. Creatinine today 1.3. Medical reconciliation done for nephrotoxic drugs. Hypertension: Goal blood pressure less than 140/90 mmHg. Continue home dose of Coreg. Restart patient on lisinopril but at a lower dose of 5 mg daily. Congestive heart failure: Echocardiogram done last month showed an EF of 35 to 40% with study abnormal for regional wall motion abnormality, PASP 36, mild to moderate annular calcification, mild regurgitation Patient complaining of occasional anginal symptoms at home. Continue with home dose of aspirin, statin. Plavix was stopped on recent discharge because of anemia. N.p.o. after midnight for stress test evaluation for now anginal symptoms and history of CAD and multiple carotid artery disease. COPD: Without exacerbation. Albuterol as needed, daily Spiriva. Chronic anemia: Hemoglobin at baseline. 8.8 today. No active bleeding. Check iron panel, vitamin B12, folate levels. Start on oral iron supplement ation. Full code DVT prophylaxis SCDs because of anemia, continue Protonix 40 mg p.o. twice daily, if her hemoglobin stays stable please evaluate if anticoagulating agent can be added Consistent carb diet Attestations Medical Necessity Statement*: Paloma Slater is being changed to inpatient status as stay will now exceed 2 midnights. Ongoing hospital care is necessary for recurrent hypoglycemia, ongoing hypoxia because of CHF exacerbation, unstable angina Time Spent in Patient Care: Greater than 35 minutes (>than 50% of time spent in counselling and/or direct pt care on unit) . Coding Level of Care Code Acute Supervisor Fertilizer Processing for [facility] Fwd Diagnoses Hypoglycemia E16.2 Transient cerebral ischemia G45.9 Pneumonia J18.9 Anemia D64.9 Carotid artery disease I77.9 Bilateral lower extremity edema R60.0 COPD (chronic obstructive pulmonary disease) J44.9 Atopic dermatitis L20.9 Atopic dermatitis type: unspecified Diabetic peripheral neuropathy E11.42 Chronic kidney disease N18.9 CHF (congestive heart failure) I50.9 AAA (abdominal aortic aneurysm) I71.4 Presence of rupture: without rupture HTN (hypertension) I10 Diabetes 1.5, managed as type 2 E13.9
[2021-04-26] MEDS: FUROsemide 10 mg/mL SDV 4mL 40 MG IVP (11:36)
[2021-04-26 12:07] LABS: Glucose Point of Care 82 mg/dL (70-110)
[2021-04-26 12:48] LABS: Procalcitonin 0.08 ng/mL (0-0.5)
[2021-04-26 13:27] LABS: Ferritin 119 ng/mL (15-150); Iron 26 ug/dL (37-145); Percent Saturation 9.7 % (20-50); Total Iron Binding Capacity 266 mcg/dl; Unsaturated Iron Binding 240 ug/dL (112-347)
[2021-04-26 13:42] LABS: Vitamin B12 517 pg/mL (232-1245)
[2021-04-26 13:43] LABS: Folate Level 5.2 ng/mL (4.8-37.3)
[2021-04-26] MEDS: ferrous gluconate 324 mg Tablet PO (16:51)
[2021-04-26 17:08] LABS: Glucose Point of Care 109 mg/dL (70-110)
--- NOTE | 2021-04-26 19:07 | PC.NURSE ---
Report to Octavia PINA at this time.
[2021-04-26 21:29] LABS: Glucose Point of Care 147 mg/dL (70-110)
[2021-04-27] VITALS (9 sets, daily range): BP systolic 94–153; BP diastolic 57–80; PULSE 78–93; RESP 17–20; TEMP 36.5–36.7; O2SAT 78–96
[2021-04-27] MEDS: cefTRIAXone 1,000 MG in sodium chloride 0.9% (plus) 50 ML 100 MG IV (01:56)
[2021-04-27] MEDS: pantoprazole DR 40 mg Tablet PO (05:12)
[2021-04-27] MEDS: sucralfate 1 gm Tablet PO ×2 (05:12→10:46)
[2021-04-27 06:02] LABS: Basophils % 0.4 %; Eosinophils # 0.6 10^3/uL (0.0-0.8); Eosinophils % 6.9 %; Hemoglobin 8.8 g/dL (11.5-15.3); Lymphocytes # 1.4 10^3/uL (0.8-4.8); Lymphocytes % 17.2 %; Mean Corpuscular HGB Conc 31.4 g/dL (30.0-36.0); Mean Corpuscular Hemoglobin 26.6 pg (28.0-34.0); Mean Corpuscular Volume 84.6 fL (81-99); Mean Platelet Volume 9.2 fL (7.4-10.4); Monocytes # 1.1 10^3/uL (0.2-0.9); Monocytes % 13.4 %; Neutrophils # 4.97 10^3/uL (1.8-7.7); Neutrophils % 61.7 %; Nucleated Red Blood Cells % 0 %; Platelet Count 582 10^3/cmm (130-400); Red Blood Count 3.31 10^6/uL (4.1-5.3); White Blood Count 8.1 10^3/uL (4.0-10.0)
[2021-04-27 06:31] LABS: Alanine Aminotransferase 14 U/L (0-33); Albumin Level 2.8 g/dL (3.5-5.2); Alkaline Phosphatase 159 IU/L (35-105); Anion Gap 11.9 (5-19); Aspartate Amino Transferase 17 U/L (0-32); Blood Urea Nitrogen 17 mg/dL (8-23); Calcium 8.7 mg/dL (8.5-10.5); Carbon Dioxide 35 mmol/L (22-29); Chloride 92 mmol/L (98-107); Globulin 3.9 g/dL (1.3-4.6); Glucose 133 mg/dL (65-115); Osmolality Calculated 283 mOsm/kg (285-295); Potassium 3.9 mmol/L (3.5-5.1); Sodium 135 mmol/L (136-145); Total Bilirubin 0.4 mg/dL (0.15-1.2); Total Protein 6.7 g/dL (6.6-8.7)
[2021-04-27 06:39] LABS: Glucose Point of Care 156 mg/dL (70-110)
--- NOTE | 2021-04-27 06:44 | ECG_ITS ---
[facility] Test Date: 2021-04-27 Pat Name: Paloma Slater Department: Room: 255 Gender: Female Edger Automatic: : [phone] Requested By: Osito Gillette Order Number: [id number] Latisha MD: TIFFANIE SOTO Interpretive Statements NAME OF STUDY: LEXISCAN SESTAMIBI STRESS TEST INDICATION: New low ef, NOTE: Please note that this is the electrocardiogram portion of the Lexiscan/Sestamibi stress test. The perfusion scan will be documented separately. DATA: Baseline heart rate was 79 beats per minute. Baseline blood pressure was 129/81 millimeters of mercury. Target heart rate was 142. Maximum heart rate achieved was 98. which was 69 % of the predicted target heart rate. Maximum blood pressure was 169/81 millimeters of mercury. The reason for ending the test was completion of the protocol. The patient did not experience any symptoms. ELECTROCARDIOGRAM: BASELINE: Sinus rhythm. Normal axis. Left bundle branch block. EXERCISE: After Lexiscan injection, no ST-T changes suggestive of ischemic noted. No arrhythmia noted. CONCLUSION: Please note due to baseline abnormality of the EKG specificity and sensitivity of the EKG portion of LexiScan MIBI stress test will be low 1. EKG not suggestive of ischemia 2. Lexiscan injection unremarkable. 3. Perfusion scan will be documented separately. Electronically Signed On 04-28-2021 20:38:11 CDT by TIFFANIE SOTO [id number]
[2021-04-27] MEDS: oxyCODONE 5 mg IR Tab/Cap 10 MG PO (07:35)
--- NOTE | 2021-04-27 07:38 | PC.NURSE ---
Pt taken to [facility] by Celsa from transport.
[2021-04-27] MEDS: regadenoson 0.4 Mg/5 ml Syringe IVP (08:26)
[2021-04-27] MEDS: ondansetron 2 mg/ML SDV 2 mL 4 MG IVP ×2 (08:26→13:23)
[2021-04-27] MEDS: aspirin 325 mg Tablet PO (10:46)
[2021-04-27] MEDS: atorvastatin 40 mg Tablet 80 MG PO (10:46)
[2021-04-27] MEDS: clopidogrel 75 mg Tablet PO (10:47)
[2021-04-27] MEDS: ferrous gluconate 324 mg Tablet PO (10:47)
[2021-04-27] MEDS: azithromycin 250 mg Tablet 500 MG PO (10:47)
[2021-04-27] MEDS: sennosides-docusate Tablet 1 TAB PO (10:47)
[2021-04-27] MEDS: carvedilol 3.125 mg Tablet PO (10:47)
[2021-04-27] MEDS: lisinopril 5 mg Tablet PO (10:48)
[2021-04-27] MEDS: FUROsemide 10 mg/mL SDV 4mL 40 MG IVP (10:48)
[2021-04-27 11:15] LABS: Glucose Point of Care 161 mg/dL (70-110)
--- NOTE | 2021-04-27 11:17 | NMCV_ITS ---
NM keiry perf SPECT r/s* [id number] Paloma Slater Age: 80 Gender: F : 1940 Exam Date: 04/27/2021 11:17 Ordering Phys: Osito Gillette MD Technologist: SHANTI Vidal Exam Location: [facility] Indications: POSSIBLE STROKE, INABILITY TO WALK STRESS TEST Please see separate stress test report in [facility] for full findings IMAGE PROTOCOL Rest/Stress 1 Lexiscan Day Radiopharmaceutical Dose (mCi) Administration Site Administered by Rest: Tc-99m 11.0 IV SHANTI Christie Sestamibi Stress:Tc-99m 33.0 IV SHANTI Christie Sestamibi Rest: 27-Apr-2021 60 Discovery 630 Stress: 27-Apr-2021 30 Discovery 630 0.4mg Lexiscan. Supine position only as patient was unable to lay prone. SPECT RESULTS Technical Quality: Excellent Raw Data Analysis: Normal Image Corrections: No attenuation or motion correction applied Summed Stress Score: 2 Summed Rest Score: 6 Summed Difference Score: 0 PERFUSION FINDINGS There is a fixed perfusion defect in the apical inferior wall. This likely represents a small infarct . There are also perfusion defects seen only on rest in the apical, apical lateral and apical septal wall which resolve on stress. Likely attenuation artifacts. No evidence of ischemia FUNCTIONAL RESULTS (calculated via Gated SPECT) Stress Image LV EF (%): 59 Stress EDV (mL):134 TID: 0.99 Stress ESV (mL):55 FUNCTIONAL FINDINGS: There is normal left ventricular systolic function. IMPRESSIONS 1. Abnormal myocardial perfusion imaging with small infarct noted in the apical inferior wall. No evidence of ischemia 2. LV systolic function is normal with EF of 59% Jaxon Fernandes MD (Electronically Signed) Final Date: 30 April 2021 18:52 S
--- NOTE | 2021-04-27 15:19 | PC.RESP ---
Smoking Cessation and Pulmonary Rehab information sent to patient.
--- NOTE | 2021-04-27 15:32 | P.DS_ITS ---
Discharge Providers Date of Admission: 04/26/21 11:12 Date of Discharge: April 27, 2021 Attending Provider at Admission: Zina Lambert MD Attending Provider at Discharge: Osito Gillette MD Primary Care Provider: Patti Irwin DO Diagnoses at Discharge Discharge Diagnosis (1) Hypoglycemia: Status: Acute (2) Transient cerebral ischemia: Status: Acute (3) Pneumonia: Status: Acute (4) Anemia: Status: Acute (5) Carotid artery disease: Status: Acute (6) Bilateral lower extremity edema: Status: Acute (7) COPD (chronic obstructive pulmonary disease): Status: Acute (8) Atopic dermatitis: Status: Acute Qualifiers: Atopic dermatitis type: unspecified Qualified Code(s): L20.9 - Atopic dermatitis, unspecified (9) Diabetic peripheral neuropathy: Status: Acute (10) Chronic kidney disease: Status: Acute (11) CHF (congestive heart failure): Status: Acute Permanent problem details: Diastolic/Systolic EF 37% 12/14 (12) AAA (abdominal aortic aneurysm): Status: Acute Permanent problem details: Status post stent graft repair Qualifiers: Presence of rupture: without rupture Qualified Code(s): I71.4 - Abdominal aortic aneurysm, without rupture (13) HTN (hypertension): Status: Acute (14) Diabetes 1.5, managed as type 2: Status: Acute Reason for Visit Reason for Visit: possible stroke, inability to walk Hospital Course Hospital Course Paloma Slater is a 80 year old female who has multiple comorbid conditions including bilateral extracranial artery stenosis, hypertension dyslipidemia, nicotine dependence, type 2 diabetes presented today with chief complaint of right arm and leg weakness. Of note, she has complete occlusion of left extracranial ICA high-grade stenosis of right 84%, bilateral vertebral artery stenosis greater than 50%, occluded left intracranial ICA, high-grade stenosis intracranially right ICA. Focal thrombus with occlusion near the junction of the right innominate with subclavian and common carotid. Patient left medical advice on 04/20 when she was being managed for pneumonia prior nephritis and altered mental status. Her Plavix was held on discharge because of anemia she was discharged on aspirin and Plavix. Hemoglobin at the time of discharge 8.8. Patient presents to the hospital on evening of April 25. Patient is stating that today when she was try to get out of the bathroom she started experiencing weakness in her legs bilaterally, she did not fall she was just not able to move her legs at all and for about half an hour her speech was abnormal which was described slurred by the EMS, she did not notice any numbness or tingling in her extremities. Her symptoms started 30 minutes before her arrival in the ER. By the time she was evaluated by the ER physician her NIH score was 5 for minor facial paralysis right arm drift, right lower extremity limited motion against gravity and ataxia, she was not a TPA candidate for low NIH score Case was discussed with Dr. Potter after code stroke. CTA head and neck was obtained as well. Her symptoms resolved spontaneously as as her hypoglycemia recovered. 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 During hospitalization it was found that patient was persistently hypoglycemic. Her blood sugars were managed by managing her outpatient Lantus. Patient did not have any symptoms during hospitalization. She was seem to be on more oxygen supplementation than her baseline for which she underwent CT chest which showed resolving pneumonia and signs of congestive heart failure. Patient was started back on her diuretics to which she responded well. Patient was complaining on and off anginal symptoms for which she underwent stress test on April 27. Unfortunately the results are not available yet. Patient is adamant of going home for which she would follow-up with her primary care provider for the results of the stress test. For her multiple carotid stenosis patient is to follow-up with neurosurgeon/intervention radiologist as an outpatient. Patient has to follow- up with a provider at [place] for which referral will be provided to her by her primary care provider. She is been discharged in hemodynamically stable condition after home O2 evaluation on reinitiation of her home dose of Lasix, she is to take only 8 units of Lantus going forward and to stop her home dose of glipizide. She is to check her blood sugars 3 times a day for next 1 week and follow-up with her primary care provider for further adjustment of hypoglycemics. Patient is been discharged on aspirin, Plavix and statin and her hemoglobin has remained stable during the hospitalization. Physical Exam Narrative: EXAM NARRATIVE: General: No acute distress, AO x3, on 3 L nasal cannula saturating 94% HEENT: PERRLA, pupils bilaterally equal and reactive Chest: Normal vesicular breath sounds, coarse crackles present bilaterally in the posterior region right more than left, equal good air entry bilaterally CVS: S1-S2 regular soft pansystolic murmur at apex, no tachycardia, no gallops, no rubs Abdomen: Soft, nontender, no organomegaly, bowel sounds present Neuro: No focal deficits, no facial deformity, AO x3, power 5/5 in all limbs Discharge Data Data Completed and Pending: Completed Studies During Hospitalization Category Date Time Status CT angio headneck * [id number] Stat Cat Scan 04/25/21 21:[address] chest abd pel wo con Urgent Cat Scan 04/25/21 21:[address] head wo con* [id number] Stat Cat Scan 04/25/21 21:21 Completed Sestamibi Stress Test Request Routi ne Exams 04/27/21 06:44 Draft XR chest 1V katie ble [id number] Stat Exams 04/25/21 21:19 Completed Pending at discharge Category Date Time Status Sestamibi Stress Test Request Routi ne Exams 04/26/21 11:17 Stop Req Sputum Culture an d Gram Stain Stat Lab 04/26/21 16:10 Uncollected NM keiry perf SPECT r/s* [id number] Routin e Nuc Med 04/27/21 11:17 Taken Labs from last 24 hours 04/27/21 04/27/21 04/27/21 10:58 06:25 05:39 WBC RBC Hgb Hct MCV MCH MCHC RDW Plt Count MPV Neut % (Auto) Lymph % (Auto) [place] % (Auto) Eos % (Auto) Baso % (Auto) Neut # (Auto) Lymph # (Auto) [place] # (Auto) Eos # (Auto) Baso # (Auto) Nucleated RBC % (a uto) Nucleated RBCs # Sodium 135 L Potassium 3.9 Chloride 92 L Carbon Dioxide 35 H Anion Gap 11.9 BUN 17 Creatinine 1.5 H GFR Calculation Not Reportable Glucose 133 H POC Glucose 161 H 156 H Calculated Osmolal ity 283 L Calcium 8.7 Total Bilirubin 0.4 AST 17 ALT 14 Alkaline Phosphata se 159 H Total Protein 6.7 Albumin 2.8 L Globulin 3.9 04/27/21 04/26/21 04/26/21 05:39 21:25 16:56 WBC 8.1 RBC 3.31 L Hgb 8.8 L Hct 28.0 L MCV 84.6 MCH 26.6 L MCHC 31.4 RDW 15.0 Plt Count 582 H MPV 9.2 Neut % (Auto) 61.7 Lymph % (Auto) 17.2 [place] % (Auto) 13.4 Eos % (Auto) 6.9 Baso % (Auto) 0.4 Neut # (Auto) 4.97 Lymph # (Auto) 1.4 [place] # (Auto) 1.1 H Eos # (Auto) 0.6 Baso # (Auto) 0.0 Nucleated RBC % (a uto) 0 Nucleated RBCs # 0.0 Sodium Potassium Chloride Carbon Dioxide Anion Gap BUN Creatinine GFR Calculation Glucose POC Glucose 147 H 109 Calculated Osmolal ity Calcium Total Bilirubin AST ALT Alkaline Phosphata se Total Protein Albumin Globulin Addt'l Data from Hospital Stay: Laboratory Results WBC 8.1 10^3/uL (4.0- 10.0) 04/27/21 05:39 RBC 3.31 10^6/uL (4.1 -5.3) L 04/27/21 05:39 Hgb 8.8 g/dL (11.5-15 .3) L 04/27/21 05:39 Hct 28.0 % (37.0-47.0 ) L 04/27/21 05:39 MCV 84.6 fL (81-99) 04/27/21 05:39 MCH 26.6 pg (28.0-34. 0) L 04/27/21 05:39 MCHC 31.4 g/dL (30.0-3 6.0) 04/27/21 05:39 RDW 15.0 % (12.1-15.1 ) 04/27/21 05:39 Plt Count 582 10^3/cmm (130 -400) H 04/27/21 05:39 MPV 9.2 fL (7.4-10.4) 04/27/21 05:39 Neut % (Auto) 61.7 % 04/27/21 05:39 Lymph % (Auto) 17.2 % 04/27/21 05:39 [place] % (Auto) 13.4 % 04/27/21 05:39 Eos % (Auto) 6.9 % 04/27/21 05:39 Baso % (Auto) 0.4 % 04/27/21 05:39 Neut # (Auto) 4.97 10^3/uL (1.8 -7.7) 04/27/21 05:39 Lymph # (Auto) 1.4 10^3/uL (0.8- 4.8) 04/27/21 05:39 [place] # (Auto) 1.1 10^3/uL (0.2- 0.9) H 04/27/21 05:39 Eos # (Auto) 0.6 10^3/uL (0.0- 0.8) 04/27/21 05:39 Baso # (Auto) 0.0 10^3/uL (0.0- 0.1) 04/27/21 05:39 Nucleated RBC % (a uto) 0 % 04/27/21 05:39 Nucleated RBCs # 0.0 /100WBC 04/27/21 05:39 PT 15.30 SECONDS (12 .1-14.9) H 04/25/21 21:23 INR 1.17 (0.8-1.2) 04/25/21 21:23 APTT 31.9 SECONDS (23. 9-36.7) 04/25/21 21:23 Sodium 135 mmol/L (136-1 45) L 04/27/21 05:39 Potassium 3.9 mmol/L (3.5-5 .1) 04/27/21 05:39 Chloride 92 mmol/L (98-107 ) L 04/27/21 05:39 Carbon Dioxide 35 mmol/L (22-29) H 04/27/21 05:39 Anion Gap 11.9 (5-19) 04/27/21 05:39 BUN 17 mg/dL (8-23) 04/27/21 05:39 Creatinine 1.5 mg/dL (0.5-0. 9) H 04/27/21 05:39 GFR Calculation Not Reportable 04/27/21 05:39 Glucose 133 mg/dL (65-115 ) H 04/27/21 05:39 POC Glucose 161 mg/dL (70-110 ) H 04/27/21 10:58 Calculated Osmolal ity 283 mOsm/kg (285- 295) L 04/27/21 05:39 Calcium 8.7 mg/dL (8.5-10 .5) 04/27/21 05:39 Iron 26 ug/dL (37-145) L 04/25/21 21:23 TIBC 266 mcg/dl 04/25/21 21:23 % Saturation 9.7 % (20-50) L 04/25/21 21:23 Unsat Iron Binding 240 ug/dL (112-34 7) 04/25/21 21:23 Ferritin 119 ng/mL (15-150 ) 04/25/21 21:23 Total Bilirubin 0.4 mg/dL (0.15-1 .2) 04/27/21 05:39 AST 17 U/L (0-32) 04/27/21 05:39 ALT 14 U/L (0-33) 04/27/21 05:39 Alkaline Phosphata se 159 IU/L (35-105) H 04/27/21 05:39 Troponin T Baselin e 21 ng/L (0-10) H 04/25/21 21:23 Troponin T 120 Min [place] 19.58 ng/L (0-10) H 04/25/21 23:19 Delta Troponin T -1.42 ABS# (0-10) L 04/25/21 23:19 NT-Pro-B Natriuret Pep 2780 pg/mL (0-450 ) H 04/25/21 21:23 Total Protein 6.7 g/dL (6.6-8.7 ) 04/27/21 05:39 Albumin 2.8 g/dL (3.5-5.2 ) L 04/27/21 05:39 Globulin 3.9 g/dL (1.3-4.6 ) 04/27/21 05:39 Vitamin B12 517 pg/mL (232-12 45) 04/25/21 21:23 Folate 5.2 ng/mL (4.8-37 .3) 04/25/21 21:23 Procalcitonin 0.08 ng/mL (0-0.5 ) 04/25/21 21:23 Urine Color Yellow (Yellow) 04/25/21 21:56 Urine Appearance Clear (CLEAR) 04/25/21 21:56 Urine pH 7 (5-7) 04/25/21 21:56 Ur Specific Gravit y 1.000 (1.005-1.0 30) L 04/25/21 21:56 Urine Protein Neg (Negative) 04/25/21 21:56 Urine Glucose (UA) Norm (Normal) 04/25/21 21:56 Urine Ketones Negative (Negati ve) 04/25/21 21:56 Urine Blood Neg (Negative) 04/25/21 21:56 Urine Nitrate Negative (Negati ve) 04/25/21 21:56 Urine Bilirubin Neg (Negative) 04/25/21 21:56 Urine Urobilinogen Norm mg/dL (Negat vinay) 04/25/21 21:56 Ur Leukocyte Nickie ase Negative (Negati ve) 04/25/21 21:56 Urine Opiates Scre en Negative ng/mL (N egative) 04/25/21 21:56 Ur Barbiturates Sc reen Negative ng/mL (N egative) 04/25/21 21:56 Ur Phencyclidine S crn Negative ng/mL (N egative) 04/25/21 21:56 Ur Amphetamines Sc reen Negative ng/mL (N egative) 04/25/21 21:56 U Benzodiazepines Scrn Negative ng/mL (N egative) 04/25/21 21:56 Urine Cocaine Scre en Negative ng/mL (N egative) 04/25/21 21:56 U Marijuana (THC) Screen Positive ng/mL (N egative) H 04/25/21 21:56 Impressions Chest X-Ray 04/25/21 21:19 IMPRESSION: Bibasilar opacities, which may be pneumonia. Head/Neck CTA 04/25/21 21:19 IMPRESSION: No significant change since the prior exam. Occlusion of the left ICA and near- complete occlusion of the right carotid bulb and right ICA origin are again noted. REFERENCES: NASCET CRITERIA. The degree of internal carotid artery stenosis is based on NASCET criteria. Normal is no stenosis. Mild is less than 50% stenosis. Moderate is 50-69% stenosis. Severe is 70% to 99% stenosis. Total occlusion is no detectable patent lumen. Radiation Dose CTDIVOL = (mGy): DLP = 2370.04~2370.04 (mGy-cm) Head CT 04/25/21 21:21 IMPRESSION: No acute intracranial abnormality. ASSESSMENT: ASPECTS (Donald Stroke Program Early CT Score) is 10. Radiation Dose CTDIVOL = (mGy): DLP = 1602.18 (mGy-cm) Chest/Abdomen/Pelvis CT 04/25/21 21:39 IMPRESSION: 1. No acute abnormality is seen in the abdomen or pelvis. 2. Constipation and diverticulosis coli. Radiation Dose CTDIVOL = (mGy): DLP = 1859.53~1859.53 (mGy-cm) Vitals: Last Vital Signs Temp 98.1 F 04/27/21 11:39 Pulse 82 04/27/21 11:39 Resp 17 04/27/21 11:39 BP 94/57 04/27/21 11:39 Pulse Ox 91 04/27/21 11:39 Discharge Plan Discharge Patient Disposition: Home Condition: Stable Prescriptions: New ferrous gluconate 324 mg (37.5 mg iron) Tablet 324 mg PO BIDWM Qty: 60 RF: 0 doxycycline hyclate 100 mg capsule 100 mg PO BID 3 Days Qty: 6 RF: 0 Continued montelukast [Singulair] 10 mg tablet 10 mg PO DAILY RF: 0 clopidogrel 75 mg tablet 75 mg PO DAILY 90 Days Qty: 90 RF: 3 Hold Instructions: Resume on 05/07/21. Until seen by primary care, recheck CBC atorvastatin 80 mg tablet 80 mg PO DAILY Qty: 90 RF: 3 carvedilol 3.125 mg Tablet 3.125 mg PO BID RF: 0 oxycodone 10 mg tablet 10 mg PO QID PRN (Reason: Pain) RF: 0 aspirin 325 mg tablet 325 mg PO DAILY Qty: 30 RF: 0 cetirizine 10 mg Tablet 10 mg PO DAILY@0800 RF: 0 loratadine 10 mg tablet 10 mg PO DAILY PRN (Reason: Allergic Reaction) RF: 0 polyethylene glycol 3350 17 gram Powder In Packet 17 g PO DAILY 30 Days Qty: 30 RF: 0 sucralfate 1 gram Tablet 1 g PO AC&BEDTIME 30 Days Qty: 60 RF: 0 docusate sodium [DOK] 100 mg Capsule 100 mg PO BID 30 Days Qty: 60 RF: 0 levofloxacin 750 mg tablet 750 mg PO Q48H 6 Days Qty: 3 RF: 0 pantoprazole 40 mg Tablet,Delayed Release (Dr/Ec) 40 mg PO Q12H 30 Days Qty: 60 RF: 0 Changed furosemide 20 mg tablet 40 mg PO DAILY@0800 Qty: 90 RF: 3 Lantus Solostar U-100 Insulin 100 unit/mL (3 mL) insulin pen 8 unit SUBCUT DAILY Qty: 15 RF: 5 Discontinued potassium chloride 10 mEq tablet,ER particles/crystals 20 meq PO DAILY Qty: 180 RF: 3 Hold Instructions: Resume on 04/23/21. lisinopril 10 mg tablet 10 mg PO DAILY@0800 RF: 0 Hold Instructions: Resume on 04/23/21. Discharge Orders: Discharge Order (Routine); Ordered 04/27/21 Ordered By: Osito Gillette Referrals: Patti Irwin DO [Primary Care Provider] - 4-7 days Discharge Diet: Cardiac and Diabetic Discharge Activity: Resume usual activity Patient Instructions: Transient Ischemic Attack (DC), Opioid Safety Activity Restrictions/Additional Instructions: Please check blood sugar 3 times a day for next 1 week and follow-up with your primary care provider with a blood sugar chart for further adjustment of hypoglycemics. You are supposed to be on Lantus 8 units of insulin now. Do not take glipizide. You will restart your home dose of Lasix. Currently you are supposed to be on 40 mg oral daily. Please recheck BMP and CBC in next 1 week with your primary care provider. You will be on levofloxacin for 3 days and doxycycline for 3 days to finish a course of antibiotics for pneumonia. You need to have a referral from PCP for interventional neurology provider versus intervention sprinkler helper for management of your carotid stenosis. Discharge Attestations Time Spent in Discharge Care*: greater than 30 min Quality Metrics Clinical Quality Measures During this hospital stay, did patient experience: None Coding Level of Care Code Acute Chg FW DC note Diagnoses Hypoglycemia E16.2 Transient cerebral ischemia G45.9 Pneumonia J18.9 Anemia D64.9 Carotid artery disease I77.9 Bilateral lower extremity edema R60.0 COPD (chronic obstructive pulmonary disease) J44.9 Atopic dermatitis L20.9 Atopic dermatitis type: unspecified Diabetic peripheral neuropathy E11.42 Chronic kidney disease N18.9 CHF (congestive heart failure) I50.9 AAA (abdominal aortic aneurysm) I71.4 Presence of rupture: without rupture HTN (hypertension) I10 Diabetes 1.5, managed as type 2 E13.9
== END 2021-04-27 16:30 | disposition home or self-care (01) | DRG 637 ==
LOC: ER 23:37 → MEDSURG 04-26 00:12
PROVIDERS: Admitting Provider Internal Medicine; Emergency Provider Family Medicine; PCP Family Medicine; Visit Provider Student in an Organized Health Care Education/Training Program
DX: E13.649 Other specified diabetes mellitus with hypoglycemia without coma (principal); I50.43 Acute on chronic combined systolic (congestive) and diastolic (congestive) heart failure; J18.9 Pneumonia, unspecified organism; I13.0 Hypertensive heart and chronic kidney disease with heart failure and stage 1 through stage 4 chronic kidney disease, or unspecified chronic kidney disease; J44.0 Chronic obstructive pulmonary disease with (acute) lower respiratory infection; I25.110 Atherosclerotic heart disease of native coronary artery with unstable angina pectoris; E13.22 Other specified diabetes mellitus with diabetic chronic kidney disease; E13.42 Other specified diabetes mellitus with diabetic polyneuropathy; N18.9 Chronic kidney disease, unspecified; G45.9 Transient cerebral ischemic attack, unspecified; Z87.01 Personal history of pneumonia (recurrent); D63.1 Anemia in chronic kidney disease; F12.90 Cannabis use, unspecified, uncomplicated; R59.0 Localized enlarged lymph nodes; Z85.3 Personal history of malignant neoplasm of breast; Z79.891 Long term (current) use of opiate analgesic; Z79.02 Long term (current) use of antithrombotics/antiplatelets; L20.9 Atopic dermatitis, unspecified; Z90.10 Acquired absence of unspecified breast and nipple; I70.1 Atherosclerosis of renal artery; E66.9 Obesity, unspecified; Z68.35 Body mass index [BMI] 35.0-35.9, adult; Z85.828 Personal history of other malignant neoplasm of skin; E78.5 Hyperlipidemia, unspecified; I71.6 Thoracoabdominal aortic aneurysm, without rupture; Z86.73 Personal history of transient ischemic attack (TIA), and cerebral infarction without residual deficits; G89.29 Other chronic pain
CPT/HCPCS: 36415; 36416; 70450; 70496; 70498; 71045; 71250; 74176; 78452; 80053; 80306; 81003; 82607; 82728; 82746; 82962; 83540; 83550; 83880; 84145; 84484; 85025; 85610; 85730; 86403; 87449; 87641; 93005; 93017; 96365; 96367; 96372; 97116; 97161; 99285; A9500; G0378; J0456; J0696; J1815 ×2; J1940; J2405; J2785; J7050; Q0144; Q9967

== ENCOUNTER → 2021-04-30 15:24 | Outpatient (BNVA) | payer MEDICARE, SELFPAY | PROVIDERS: PCP Family Medicine; Visit Provider Family Medicine | DX: E13.9 Other specified diabetes mellitus without complications (principal); D64.9 Anemia, unspecified | CPT/HCPCS: 85025 ==

== ENCOUNTER 2021-05-07 11:24 | Outpatient (CLI) | payer MEDICARE, SELFPAY ==
[2021-05-07 12:01] LABS: Basophils % 0.3 %; Eosinophils # 0.9 10^3/uL (0.0-0.8); Eosinophils % 12.8 %; Hematocrit 29.4 % (37.0-47.0); Hemoglobin 9.3 g/dL (11.5-15.3); Lymphocytes # 1.2 10^3/uL (0.8-4.8); Lymphocytes % 16.7 %; Mean Corpuscular HGB Conc 31.6 g/dL (30.0-36.0); Mean Corpuscular Hemoglobin 26.7 pg (28.0-34.0); Mean Corpuscular Volume 84.5 fL (81-99); Mean Platelet Volume 9.4 fL (7.4-10.4); Monocytes # 0.5 10^3/uL (0.2-0.9); Monocytes % 7.5 %; Neutrophils # 4.48 10^3/uL (1.8-7.7); Neutrophils % 62.6 %; Nucleated Red Blood Cells % 0 %; Platelet Count 548 10^3/cmm (130-400); Red Blood Count 3.48 10^6/uL (4.1-5.3); Red Cell Distribution Width 14.6 % (12.1-15.1); White Blood Count 7.2 10^3/uL (4.0-10.0)
[2021-05-07 12:33] LABS: Alanine Aminotransferase 9 U/L (0-33); Albumin Level 3.2 g/dL (3.5-5.2); Alkaline Phosphatase 138 IU/L (35-105); Anion Gap 13.4 (5-19); Aspartate Amino Transferase 13 U/L (0-32); Blood Urea Nitrogen 17 mg/dL (8-23); Calcium 8.8 mg/dL (8.5-10.5); Carbon Dioxide 33 mmol/L (22-29); Chloride 95 mmol/L (98-107); Globulin 3.1 g/dL (1.3-4.6); Glucose 147 mg/dL (65-115); Osmolality Calculated 288 mOsm/kg (285-295); Potassium 4.4 mmol/L (3.5-5.1); Sodium 137 mmol/L (136-145); Total Bilirubin 0.3 mg/dL (0.15-1.2); Total Protein 6.3 g/dL (6.6-8.7)
[2021-05-07 23:57] LABS: Iron 50 ug/dL (37-145); Percent Saturation 18.4 % (20-50); Total Iron Binding Capacity 271 mcg/dl; Unsaturated Iron Binding 221 ug/dL (112-347)
--- NOTE | 2021-05-14 10:27 | ONC FU_ITS ---
Dr. Saucedo Patient Follow-Up Note Patient: Paloma Slater Unit #: [id number]: 1940 Dicatated By: Gonzalo Saucedo M.D.Date of Visit:May 07, 2021 Onc Med Follow-up/Prog Note Chief Complaint: Breast cancer/anemia. History of Present Illness: This is a 80 year-old woman with grade 2 infiltrating ductal carcinoma of the right breast, stage IIIC (T2, pN3a, M0), ER positive/NH negative and HER-2/josafat positive. She also has mild anemia. She had initially presented with a lump in her right axilla. Mammogram/ultrasound studies showed an upper outer quadrant breast mass as well as in enlarged right axillary lymph node. Ultrasound directed needle biopsy of the breast mass showed moderately differentiated infiltrating adenocarcinoma which was ER positive at 14% and NH negative at less than 5%. It was positive for overexpression of HER-2/josafat, 3+ by IHC and amplification ratio of 8.82 by FISH. She underwent right modified radical mastectomy in August of 2009. Pathology on the mastectomy showed grade 2 invasive ductal carcinoma measuring 2.5 cm in maximum diameter. There was involvement in 15 of 19 axillary lymph nodes. There was associated extracapsular extension. She was given adjuvant chemotherapy with 6 cycles of FEC, which she completed in February 2010. She had refused any taxanes therapy because of concerns over the risk of peripheral neuropathy. She did start Herceptin following the chemotherapy, but she was unable to tolerate it because of a hypersensitivity type reaction. She was then given adjuvant hormonal therapy with Femara, and she also started Zometa infusions every 6 months for osteoporosis. She stopped Femara in 2010 because of side effects, and she declined any further hormonal treatment. I had seen her for a follow-up visit on 07/22/2017. At that time it was noted that her alkaline phosphatase had been gradually increasing. She had evaluation with bone scan on 08/13/2017. It showed multiple areas of increased uptake felt to most likely due to arthritis. There was no evidence of metastatic bone disease. Her CT abdomen/pelvis also showed no evidence of a neoplastic process. There was evidence of extensive atherosclerotic peripheral vascular changes including an infrarenal abdominal aortic aneurysm and aneurysmal dilatation of left common iliac artery, and there was moderate appearing stenosis of the origin of the right renal artery. A sestamibi stress test in August 2018 showed mildly reduced left ventricular systolic function with estimated ejection fraction 51%. There was mild global hypokinesis. There was no evidence for coronary ischemia. An abdomen/pelvis CTA on 06/23/2019 reported unchanged infrarenal abdominal aortic aneurysm measuring 5.1 x 5.3 x 9.9 cm. Bilateral common iliac artery aneurysms appeared stable measuring 16-17 mm. There was stable severe stenosis involving the right renal artery origin. CT angiogram of the chest showed no evidence of pulmonary embolus and no acute pulmonary infiltrates. An indeterminate right axillary lymph node measured 1.7 cm. There was evidence of a slightly ectatic descending thoracic aortic aneurysm measuring 3.6 x 3.7 cm. There was no evidence of metastatic disease on either CT study. She continued expectant management for the breast cancer. Her other medical illnesses include hypertension, type 2 diabetes, and chronic kidney disease. She also has degenerative arthritis/degenerative disease of the spine. During followup she was found to have B12 deficiency, for which she has remained on B12 replacement. She also had evidence of osteoporosis on her bone density study. She had been on treatment with Prolia, but it was stopped due to bone pain. She has a history of smoking 1/2 pack of cigarettes daily. INTERIM HISTORY: On 02/20/2021 she was admitted to the hospital with acute renal injury in association with generalized weakness and vomiting. This appears to be due to urinary tract infection, and she did improve on antibiotic therapy and supportive treatment measures. At that time she had become mildly anemic with hemoglobin decreasing to 10.3 g. On 04/18/2021 she was admitted to the hospital again after presenting with mental status changes. She was found to be hypoxic. Her hemoglobin had decreased to 9.2 g and it then further decreased to 8.2 g. She was discharged 2 days later but then readmitted on 04/26/2021, that time with weakness in the right arm and leg. She was found to be hypoglycemic. She also was thought to have transient cerebral ischemia. CT angiogram of the neck showed near complete occlusion of the right carotid bulb and right ICA origin and severe stenosis of the right ECA. There was mild stenosis of the left common carotid artery and chronic occlusion of the left ICA. There was mild stenosis of the vertebral arteries bilaterally. Her hemoglobin had stabilized at 8.8 g. Her serum iron studies showed low transferrin saturation at 9.7%, consistent with iron deficiency. She is seen for a followup visit. She continues to feel weak following her recent hospitalizations. She has limited activity, in part due to having had a fall prior to the hospitalization sustaining an injury to her right ankle. Her right foot x-ray had shown no fracture. She can walk, but not very far, because she gets out of breath. She tries to use a walker, but she says that it does not cut it because she just gets exhausted with attempts to ambulate. Her ECOG score is 3. Her appetite is not very good. She has not had fever or night sweats. She reports having awful sinus congestion/drainage. She was having sore throat. She does not complain of cough. She has occasional tightness/heaviness in her chest. Her myocardial perfusion scan in the hospital showed abnormal perfusion imaging with a small infarct noted in the apical inferior wall. There was no evidence of ischemia. Her left ventricular systolic function was normal with estimated ejection fraction 59%. She says she is nauseated all the time and she is been having bad acid reflux this past week. She has terrible constipation. She has not been aware of any blood in the stool. Her bladder function and is okay now. She has arthritis pain in her hands and in her legs and feet and she has chronic lower back pain. She does not complain of headache. She has lightheaded if she gets up too fast. She has numbness/tingling in her hands. Medications: Adult Aspirin Regimen 81 mg (of 81 mg) Tablet, enteric coated Oral daily, Basaglar KwikPen 32 Units Subcutaneous daily, Benadryl 1 (25 mg) Tablet Oral at bedtime, Calcium + D 1 Tablet (of 315-200 mg - Units) Oral daily, Carvedilol 3.125 mg (of 3.125 mg) Tablet Oral b.i.d., GlipiZIDE 1 (5 mg) Tablet Oral daily, IBU 1 Tablet (of 200 mg) Oral PRN, Lasix 1 Tablet (of 40 mg) Oral b.i.d., Lipitor 1 (80 mg) Tablet Oral at bedtime, Lisinopril 10 mg (of 10 mg) Tablet Oral daily, oxyCODONE HCl 1 Capsule (of 5 mg) Oral four times a day PRN, Plavix 1 Tablet (of 75 mg) Oral daily, Potassium Chloride ER 1 Tablet (of 20 meq) Tablet, controlled release Oral b.i.d., tiZANidine HCl 1 Tablet (of 4 mg) Oral b.i.d. PRN Allergies: ADHESIVES, CODEINE, COMPAZINE, GLIPIZIDE, Ketoconazole, MYCINS, NEOSPORIN, PENICILLIN, and SULFA. Vital Signs: Performed on May 07, 2021 13:36 Height - 62.00 in Weight - 189 lbs (LOW) BSA - 1.87 sq.m BMI - 34.57 (HIGH) Temperature - 98 F (LOW) Pulse - 77 /min Respiration - 18 /min BP - 134/80 mm(hg) O2 Sat - 93 % (LOW) Pain - 7 Fatigue - 10 Physical Examination: Constitutional - She appears somewhat weak generally, Eyes - Sclerae nonicteric. Conjunctivae clear, ENMT - No lesions noted in the oral cavity, Hematologic/Lymphatic - No cervical, clavicular, or axillary adenopathy, Respiratory - Lungs show diminished air movement and slightly coarse breath sounds bilaterally, Cardiovascular - Heart rhythm is irregular. There is a II/ systolic murmur. There is no gallop or rub noted, Abdomen - Soft. Liver and spleen are not enlarged. There is no abdominal mass or ascites noted and there is no inguinal adenopathy, Extremities - Mild edema, Integumentary - She has a decubitus skin ulceration in the sacral area, Neurologic - No focal neurologic deficits noted. Lab/Imaging: Test performed on May 07, 2021 11:34 Iron 50 mcg/dL Sodium 137 mmol/L Iron Binding Capacity (TIBC) 271 mcg/dl Potassium 4.4 mmol/L % Iron Saturation 18.4 % Chloride 95 mmol/L CO2 33 mmol/L UIBC 221 mcg/dL Anion Gap 13.4 BUN 17 mg/dL Creatinine 1.6 mg/dL Cr Clearance (Est) 39.22 mL/min Glucose 147 mg/dL Osmolality - Calculated 288 mOsm/kg Calcium 8.8 mg/dL Protein, Total 6.3 g/dL Albumin 3.2 g/dL Globulin 3.1 g/dL Bilirubin, Total 0.3 mg/dL ALT (SGPT) 9 U/L AST (SGOT) 13 U/L Alkaline Phosphatase 138 IU/L WBC 7.2 10 3/uL RBC 3.48 10 6/uL HGB 9.3 g/dL HCT 29.4 % MCV 84.5 fL MCH 26.7 pg MCHC 31.6 g/dL RDW 14.6 % Platelet Count 548 10 3/cmm MPV 9.4 fL Neutrophils 4.48 10 3/uL Lymphocytes 1.2 10 3/uL Monocytes 0.5 10 3/uL Eosinophils 0.9 10 3/uL Basophils 0.0 10 3/uL Neutrophil % 62.6 % Lymphocyte % 16.7 % Monocyte % 7.5 % Eosinophil % 12.8 % Basophils % 0.3 % NRBC % 0 % Problem List: 1. Grade 2 infiltrating ductal carcinoma of the right breast, stage IIIC, ER positive/NH negative and HER-2/josafat positive. She undewent right modified radical mastectomy in August 2009. 2. Hypertension. 3. Hyperlipidemia. 4. Type II diabetes with neuropathy. 5. Degenerative arthritis. 6. Osteoporosis. 7. B12 deficiency. 8. She underwent surgical repair of abdominal aortic aneurysm in September 2019. Problems Addressed with this Encounter and Plan: 1. Patient with grade 2 infiltrating ductal carcinoma of the right breast, stage IIIC, ER positive/NH negative and HER-2/josafat positive. She undewent right modified radical mastectomy in August 2009. She was given adjuvant chemotherapy with 6 cycles of FEC, completed in February 2010. She was not able to take Herceptin because of a hypersensitivity reaction. She was given adjuvant hormonal therapy with Femara, which she also tolerated poorly. It was stopped in 2010. She opted not to attempt any further treatment, and she was then followed expectantly. During follow-up she has continued to have limited activity tolerance and she has had chronic pain, but thus far there has been no evidence of recurrence of the breast cancer. She remains on expectant management. 2. During the past 3 months she has had worsening anemia. Her laboratory studies with her most recent hospitalization were consistent with iron deficiency. As yet the specific cause has not been determined. She will need stool FIT testing to evaluate for GI blood loss. As she has pretty severe constipation already, it is unlikely that she will tolerate oral iron supplements, and I will give her the option to have parenteral iron replacement with Injectafer, subject to verification of insurance coverage. She will be scheduled for 1 month interval follow-up lab studies and visit. 3. She has chronic pain which appears to be due to combination of peripheral neuropathy and degenerative joint disease. It has been managed symptomatically. She now has had further limitation in her mobility and activity due to recent injury to her right ankle/foot. Her mobility limitation is significant enough to affect her ability to perform MRADLs. She no longer able to function adequately with a walker, and I will now put in a request for a wheelchair for her. She does have sufficient arm strength to safely propel a wheelchair, and a wheelchair will significantly improve her ability to participate in MRADLs. 4. She has persistent nausea and she also has been having pretty severe acid reflux symptoms. She will be given a prescription for pantoprazole 40 mg daily. She also is given further instructions on her bowel regimen. Signed By: Gonzalo Saucedo M.D. <<Signature on File>>
== END 2021-05-07 11:25 | disposition home or self-care (01) ==
LOC: ONCMED 11:26
PROVIDERS: PCP Family Medicine; Visit Provider Internal Medicine Medical Oncology
DX: Z08 Encounter for follow-up examination after completed treatment for malignant neoplasm (principal); Z85.3 Personal history of malignant neoplasm of breast; Z17.0 Estrogen receptor positive status [ER+]; D51.8 Other vitamin B12 deficiency anemias; Z92.21 Personal history of antineoplastic chemotherapy; G62.9 Polyneuropathy, unspecified; M19.90 Unspecified osteoarthritis, unspecified site; R11.0 Nausea; K21.9 Gastro-esophageal reflux disease without esophagitis; I10 Essential (primary) hypertension; E03.8 Other specified hypothyroidism; E11.21 Type 2 diabetes mellitus with diabetic nephropathy
CPT/HCPCS: 36415; 80053; 83540; 83550; 85025; 99214

== ENCOUNTER 2021-05-24 06:00 | Outpatient (CLI) | payer MEDICARE, SELFPAY | END 2021-05-24 06:01 | disposition home or self-care (01) | LOC: ONCMED 13:25 | PROVIDERS: PCP Family Medicine; Visit Provider Internal Medicine Medical Oncology | DX: C50.811 Malignant neoplasm of overlapping sites of right female breast (principal); Z17.0 Estrogen receptor positive status [ER+]; M81.0 Age-related osteoporosis without current pathological fracture; D51.9 Vitamin B12 deficiency anemia, unspecified; Z79.899 Other long term (current) drug therapy | CPT/HCPCS: 82274 ==

== ENCOUNTER → 2021-07-19 15:40 | Outpatient (BNVA) | payer MEDICARE, SELFPAY | PROVIDERS: PCP Family Medicine; Visit Provider Family Medicine | DX: E13.9 Other specified diabetes mellitus without complications (principal); Z13.6 Encounter for screening for cardiovascular disorders | CPT/HCPCS: 80053; 83036 ==

== ENCOUNTER → 2021-07-20 14:08 | Outpatient (BNVA) | payer MEDICARE, SELFPAY | PROVIDERS: PCP Family Medicine; Visit Provider Family Medicine | DX: E13.9 Other specified diabetes mellitus without complications (principal); Z13.6 Encounter for screening for cardiovascular disorders; D64.9 Anemia, unspecified; F17.219 Nicotine dependence, cigarettes, with unspecified nicotine-induced disorders | CPT/HCPCS: 82043 ==

== ENCOUNTER → 2021-08-01 10:11 | Outpatient (BNVA) | payer MEDICARE, SELFPAY | PROVIDERS: PCP Family Medicine; Visit Provider Nurse Practitioner Family | DX: Z20.822 Contact with and (suspected) exposure to COVID-19 (principal) | CPT/HCPCS: 87635 ==

== ENCOUNTER 2021-10-08 15:31 | Emergency (ER) | payer MEDICARE, SELFPAY ==
[2021-10-08 15:49] VITALS: BP 149/78; PULSE 87; RESP 18; TEMP 36.6; O2SAT 96; BMI 31.1
--- NOTE | 2021-10-08 16:18 | USCV_ITS ---
Paloma Slater Age: 81 Gender: F : 1940 Exam Date: 10/08/2021 16:40 Ordering Phys: Yanet Perez Technologist: Toya Hamilton [place] [facility] [place] LUE PAIN/HEMATOMA HISTORY: injured arm with car door PROCEDURES: Venous duplex imaging was performed in only the left upper extremity. The following venous structures were evaluated: internal jugular vein, subclavian vein, axillary vein, and brachial veins. In addition, the basilic vein, cephalic vein, radial vein, and ulnar vein. FINDINGS: Negative for upper extremity DVT. Hematoma noted in left upper arm. CONCLUSIONS No evidence of thrombus of the left upper extremity veins. Hematoma left upper arm 1.1 x 0.7cm Jesus Negrete MD (Electronically Signed) Final Date: 09 October 2021 17:00 S
== END 2021-10-08 17:04 | disposition left against medical advice (07) ==
LOC: ER 15:36
PROVIDERS: PCP Family Medicine
DX: Z53.21 Procedure and treatment not carried out due to patient leaving prior to being seen by health care provider (principal)
CPT/HCPCS: 93971

== ENCOUNTER → 2021-10-15 15:11 | Outpatient (BNVA) | payer MEDICARE, SELFPAY | PROVIDERS: PCP Family Medicine; Visit Provider Family Medicine | DX: E13.9 Other specified diabetes mellitus without complications (principal) | CPT/HCPCS: 80053; 83036 ==

== ENCOUNTER 2021-11-12 12:11 | Outpatient (CLI) | payer MEDICARE, SELFPAY ==
[2021-11-12 13:08] LABS: Basophils % 0.3 %; Eosinophils # 0.5 10^3/uL (0.0-0.8); Eosinophils % 5.9 %; Hematocrit 36.5 % (37.0-47.0); Hemoglobin 11.8 g/dL (11.5-15.3); Lymphocytes # 1.9 10^3/uL (0.8-4.8); Lymphocytes % 24.5 %; Mean Corpuscular HGB Conc 32.3 g/dL (30.0-36.0); Mean Corpuscular Hemoglobin 27.6 pg (28.0-34.0); Mean Corpuscular Volume 85.3 fl (81-99); Monocytes # 0.6 10^3/uL (0.2-0.9); Monocytes % 7.5 %; Neutrophils # 4.69 10^3/uL (1.8-7.7); Neutrophils % 61.5 %; Nucleated Red Blood Cells % 0 %; Platelet Count 386 10^3/cmm (130-400); Red Blood Count 4.28 10^6/uL (4.1-5.3); Red Cell Distribution Width 14.9 % (12.1-15.1); White Blood Count 7.6 10^3/uL (4.0-10.0)
[2021-11-12 13:31] LABS: Alanine Aminotransferase 6 U/L (0-33); Albumin Level 3.5 g/dL (3.5-5.2); Alkaline Phosphatase 149 IU/L (35-105); Aspartate Amino Transferase 9 U/L (0-32); Blood Urea Nitrogen 17 mg/dL (8-23); Calcium 8.1 mg/dL (8.5-10.5); Carbon Dioxide 27 mmol/L (22-29); Chloride 101 mmol/L (98-107); Globulin 2.9 g/dL (1.3-4.6); Glucose 164 mg/dL (65-115); Iron 47 ug/dL (37-145); Osmolality Calculated 297 mOsm/kg (285-295); Percent Saturation 19.5 % (20-50); Sodium 141 mmol/L (136-145); Total Bilirubin 0.3 mg/dL (0.15-1.2); Total Iron Binding Capacity 240 mcg/dl; Total Protein 6.4 g/dL (6.6-8.7); Unsaturated Iron Binding 193 ug/dL (112-347)
[2021-11-12 13:39] LABS: Anion Gap 16.5 (5-19); Potassium 3.5 mmol/L (3.5-5.1)
--- NOTE | 2021-11-13 06:44 | ONC FU_ITS ---
Dr. Saucedo Patient Follow-Up Note Patient: Paloma Slater Unit #: [id number]: 1940 Dicatated By: Gonzalo Saucedo M.D.Date of Visit:Nov 12, 2021 Onc Med Follow-up/Prog Note Chief Complaint: Breast cancer/anemia. History of Present Illness: This is a 81 year-old woman with grade 2 infiltrating ductal carcinoma of the right breast, stage IIIC (T2, pN3a, M0), ER positive/NE negative and HER-2/josafat positive. She also has mild anemia. She had initially presented with a lump in her right axilla. Mammogram/ultrasound studies showed an upper outer quadrant breast mass as well as in enlarged right axillary lymph node. Ultrasound directed needle biopsy of the breast mass showed moderately differentiated infiltrating adenocarcinoma which was ER positive at 14% and NE negative at less than 5%. It was positive for overexpression of HER-2/josafat, 3+ by IHC and amplification ratio of 8.82 by FISH. She underwent right modified radical mastectomy in August of 2009. Pathology on the mastectomy showed grade 2 invasive ductal carcinoma measuring 2.5 cm in maximum diameter. There was involvement in 15 of 19 axillary lymph nodes. There was associated extracapsular extension. She was given adjuvant chemotherapy with 6 cycles of FEC, which she completed in February 2010. She had refused any taxanes therapy because of concerns over the risk of peripheral neuropathy. She did start Herceptin following the chemotherapy, but she was unable to tolerate it because of a hypersensitivity type reaction. She was then given adjuvant hormonal therapy with Femara, and she also started Zometa infusions every 6 months for osteoporosis. She stopped Femara in 2010 because of side effects, and she declined any further hormonal treatment. I had seen her for a follow-up visit on 07/22/2017. At that time it was noted that her alkaline phosphatase had been gradually increasing. She had evaluation with bone scan on 08/13/2017. It showed multiple areas of increased uptake felt to most likely due to arthritis. There was no evidence of metastatic bone disease. Her CT abdomen/pelvis also showed no evidence of a neoplastic process. There was evidence of extensive atherosclerotic peripheral vascular changes including an infrarenal abdominal aortic aneurysm and aneurysmal dilatation of left common iliac artery, and there was moderate appearing stenosis of the origin of the right renal artery. A sestamibi stress test in August 2018 showed mildly reduced left ventricular systolic function with estimated ejection fraction 51%. There was mild global hypokinesis. There was no evidence for coronary ischemia. An abdomen/pelvis CTA on 06/23/2019 reported unchanged infrarenal abdominal aortic aneurysm measuring 5.1 x 5.3 x 9.9 cm. Bilateral common iliac artery aneurysms appeared stable measuring 16-17 mm. There was stable severe stenosis involving the right renal artery origin. CT angiogram of the chest showed no evidence of pulmonary embolus and no acute pulmonary infiltrates. An indeterminate right axillary lymph node measured 1.7 cm. There was evidence of a slightly ectatic descending thoracic aortic aneurysm measuring 3.6 x 3.7 cm. There was no evidence of metastatic disease on either CT study. She continued expectant management for the breast cancer. Her other medical illnesses include hypertension, type 2 diabetes, and chronic kidney disease. She also has degenerative arthritis/degenerative disease of the spine. During followup she was found to have B12 deficiency, for which she has remained on B12 replacement. She also had evidence of osteoporosis on her bone density study. She had been on treatment with Prolia, but it was stopped due to bone pain. She has a history of smoking 1/2 pack of cigarettes daily. INTERIM HISTORY: On 02/20/2021 she was admitted to the hospital with acute renal injury in association with generalized weakness and vomiting. This appears to be due to urinary tract infection, and she did improve on antibiotic therapy and supportive treatment measures. At that time she had become mildly anemic with hemoglobin decreasing to 10.3 g. On 04/18/2021 she was admitted to the hospital again after presenting with mental status changes. She was found to be hypoxic. Her hemoglobin had decreased to 9.2 g and it then further decreased to 8.2 g. She was discharged 2 days later but then readmitted on 04/26/2021, that time with weakness in the right arm and leg. She was found to be hypoglycemic. She also was thought to have transient cerebral ischemia. CT angiogram of the neck showed near complete occlusion of the right carotid bulb and right ICA origin and severe stenosis of the right ECA. There was mild stenosis of the left common carotid artery and chronic occlusion of the left ICA. There was mild stenosis of the vertebral arteries bilaterally. Her hemoglobin had stabilized at 8.8 g. Her serum iron studies showed low transferrin saturation at 9.7%, consistent with iron deficiency. I had seen her for follow-up on 05/07/2021. Her hemoglobin is up slightly, to 9.3 g, and at that point she opted to just continue with oral iron supplementation. She ultimately underwent some type of procedure for the right carotid stenosis. She was found to have COVID-19 virus infection in July 2021. She is seen for a follow-up visit. She says she has been feeling much better following her right carotid artery cleanout . She has had improvement in her energy/activity tolerance, and she says her memory is also better now. Her blood sugars recently have been high, but that she attributes to her Lantus dosage being decreased. She has good appetite. She does not have fever, night sweats, or hot flashes. She has chronic sinus drainage. She occasionally has sore throat. She does not complain of cough. She says her breathing is fine, and she has not been having any chest pain. She was having nausea for a while, but that is better now. She has a little bit of acid reflux. Bowel and bladder function have been okay. She has joint pain, especially in her knees and shoulders. She says her back does not hurt like it used to. She does not complain of headache. She occasionally has dizziness. Her neuropathy has worsened somewhat with the winter weather. Medications: Adult Aspirin Regimen 81 mg (of 81 mg) Tablet, enteric coated Oral daily, Basaglar KwikPen 32 Units Subcutaneous daily, Benadryl 1 (25 mg) Tablet Oral at bedtime, Calcium + D 1 Tablet (of 315-200 mg - Units) Oral daily, Carvedilol 3.125 mg (of 3.125 mg) Tablet Oral b.i.d., GlipiZIDE 1 (5 mg) Tablet Oral daily, IBU 1 Tablet (of 200 mg) Oral PRN, Lasix 1 Tablet (of 40 mg) Oral b.i.d., Lipitor 1 (80 mg) Tablet Oral at bedtime, Lisinopril 10 mg (of 10 mg) Tablet Oral daily, oxyCODONE HCl 1 Capsule (of 5 mg) Oral four times a day PRN, Plavix 1 Tablet (of 75 mg) Oral daily, Potassium Chloride ER 1 Tablet (of 20 meq) Tablet, controlled release Oral b.i.d., tiZANidine HCl 1 Tablet (of 4 mg) Oral b.i.d. PRN Allergies: ADHESIVES, CODEINE, COMPAZINE, GLIPIZIDE, Ketoconazole, MYCINS, NEOSPORIN, PENICILLIN, and SULFA. Vital Signs: Performed on Nov 12, 2021 15:10 Height - 62.00 in Weight - 179 lbs (LOW) BSA - 1.82 sq.m BMI - 32.74 (HIGH) Temperature - 97.9 F (LOW) Pulse - 80 /min Respiration - 18 /min BP - 129/80 mm(hg) O2 Sat - 97 % Pain - 5 Fatigue - 1 Physical Examination: Constitutional - She looks pretty good generally, Eyes - Sclerae nonicteric. Conjunctivae clear, ENMT - No lesions noted in the oral cavity, Hematologic/Lymphatic - No cervical, clavicular, or axillary adenopathy, Respiratory - Lungs are clear with good air movement bilaterally, Cardiovascular - Heart rhythm is regular. There is no murmur, gallop, or rub noted, Abdomen - Mildly distended. Liver and spleen are not enlarged. There is no abdominal mass or ascites noted and there is no inguinal adenopathy, Extremities - No edema, Neurologic - No focal neurologic deficits noted. Lab/Imaging: Test performed on Nov 12, 2021 12:56 Iron 47 mcg/dL Sodium 141 mmol/L Iron Binding Capacity (TIBC) 240 mcg/dl Potassium 3.5 mmol/L % Iron Saturation 19.5 % Chloride 101 mmol/L CO2 27 mmol/L UIBC 193 mcg/dL Anion Gap 16.5 BUN 17 mg/dL Creatinine 1.2 mg/dL Cr Clearance (Est) 48.73 mL/min Glucose 164 mg/dL Osmolality - Calculated 297 mOsm/kg Calcium 8.1 mg/dL Protein, Total 6.4 g/dL Albumin 3.5 g/dL Globulin 2.9 g/dL Bilirubin, Total 0.3 mg/dL ALT (SGPT) 6 U/L AST (SGOT) 9 U/L Alkaline Phosphatase 149 IU/L WBC 7.6 10 3/uL RBC 4.28 10 6/uL HGB 11.8 g/dL HCT 36.5 % MCV 85.3 fl MCH 27.6 pg MCHC 32.3 g/dL RDW 14.9 % Platelet Count 386 10 3/cmm MPV 10.0 fL Neutrophils 4.69 10 3/uL Lymphocytes 1.9 10 3/uL Monocytes 0.6 10 3/uL Eosinophils 0.5 10 3/uL Basophils 0.0 10 3/uL Neutrophil % 61.5 % Lymphocyte % 24.5 % Monocyte % 7.5 % Eosinophil % 5.9 % Basophils % 0.3 % NRBC % 0 % Test performed on May 24, 2021 13:30 Occult Blood -Fecal, IA IFOB N Problem List: 1. Grade 2 infiltrating ductal carcinoma of the right breast, stage IIIC, ER positive/NE negative and HER-2/josafat positive. She undewent right modified radical mastectomy in August 2009. 2. Hypertension. 3. Hyperlipidemia. 4. Type II diabetes with neuropathy. 5. Degenerative arthritis. 6. Osteoporosis. 7. B12 deficiency. 8. She underwent surgical repair of abdominal aortic aneurysm in September 2019. Problems Addressed with this Encounter and Plan: 1. Patient with grade 2 infiltrating ductal carcinoma of the right breast, stage IIIC, ER positive/NE negative and HER-2/josafat positive. She undewent right modified radical mastectomy in August 2009. She was given adjuvant chemotherapy with 6 cycles of FEC, completed in February 2010. She was not able to take Herceptin because of a hypersensitivity reaction. She was given adjuvant hormonal therapy with Femara, which she also tolerated poorly. It was stopped in 2010. She opted not to attempt any further treatment, and she was then followed expectantly. Thus far during follow-up there has been no evidence of recurrence of the breast cancer. She remains on expectant management. I will see her again in 6 months. 2. In January 2021 she was found to have iron deficiency anemia. A specific cause was not determined. The anemia has been showing gradual correction on oral iron supplementation. As her serum iron studies still show iron deficiency, she is advised to continue her oral iron supplement. 3. She has chronic pain which appears to be due to combination of peripheral neuropathy and degenerative joint disease. It has been managed symptomatically. 4. She has type 2 diabetes. Her blood sugars recently have been elevated in association with a decrease in her Lantus dosage. She wishes to restart the glipizide 5 mg daily, that will be prescribed. She is monitoring her sugars at home. Signed By: Gonzalo Saucedo M.D. <<Signature on File>>
== END 2021-11-12 12:12 | disposition home or self-care (01) ==
LOC: ONCMED 12:13
PROVIDERS: PCP Family Medicine; Visit Provider Internal Medicine Medical Oncology
DX: Z90.11 Acquired absence of right breast and nipple (principal); Z08 Encounter for follow-up examination after completed treatment for malignant neoplasm; Z85.3 Personal history of malignant neoplasm of breast; I10 Essential (primary) hypertension; E78.5 Hyperlipidemia, unspecified; E11.8 Type 2 diabetes mellitus with unspecified complications; M19.90 Unspecified osteoarthritis, unspecified site; M81.0 Age-related osteoporosis without current pathological fracture; E53.8 Deficiency of other specified B group vitamins; Z95.828 Presence of other vascular implants and grafts; D64.9 Anemia, unspecified
CPT/HCPCS: 36415; 80053; 83540; 83550; 85025; 99214

== ENCOUNTER 2021-12-17 13:48 | Outpatient (CLI) | payer MEDICARE, SELFPAY ==
--- NOTE | 2021-12-17 13:58 | MM_ITS ---
WS: [id number] LEFT DIGITAL MAMMOGRAPHY WITH CAD CLINICAL INFORMATION: HX OF BREAST CA;RT MAST HISTORY: History of right mastectomy. COMPARISON: November 30, 2020 TECHNIQUE: 3 views of the left breast were obtained. FINDINGS: Scattered fibroglandular densities of the left breast. Punctate and lucent centered calcifications le ft breast. Vascular calcification. Increasing clustered calcifications outer left breast best seen on the cc view and anteriorly on the MLO view.. Recommend spot compression magnification views in further evaluation. MM/[place] [id number] IMPRESSION: BI-RADS: 0-Incomplete: Need additional imaging evaluation FOLLOW UP: Need Additional Imaging Recommend spot compression magnification views of the calcifications left breas t.
== END 2021-12-17 13:49 | disposition home or self-care (01) ==
LOC: RADSHAW 13:53
PROVIDERS: PCP Family Medicine; Visit Provider Internal Medicine Medical Oncology
DX: Z85.3 Personal history of malignant neoplasm of breast (principal); Z90.11 Acquired absence of right breast and nipple
CPT/HCPCS: 77065

== ENCOUNTER 2022-01-03 12:13 | Outpatient (CLI) | payer MEDICARE, SELFPAY ==
--- NOTE | 2022-01-03 12:22 | MM_ITS ---
WS: [id number] LEFT DIGITAL MAMMOGRAPHY WITH CAD CLINICAL INFORMATION: ABNORMAL MAMMOGRAM COMPARISON: December 17, 2021 TECHNIQUE: 3 views of the left breast were obtained. FINDINGS: Scattered fibroglandular densities of the left breast. Again seen are the cluster calcifications oute r LEFT breast best seen on the CC view anteriorly. These have an amorphous heterogeneous appearance a nd recommend further evaluation with stereotactic guided biopsy. MM/[place] [id number] IMPRESSION: BI-RADS: 4-Suspicious Finding-Biopsy Should Be Considered FOLLOW UP: Stereotactic Biopsy Recommended
== END 2022-01-03 12:14 | disposition home or self-care (01) ==
LOC: RADSHAW 12:16
PROVIDERS: PCP Family Medicine; Visit Provider Internal Medicine Medical Oncology
DX: R92.8 Other abnormal and inconclusive findings on diagnostic imaging of breast (principal); R92.1 Mammographic calcification found on diagnostic imaging of breast
CPT/HCPCS: 77065

== ENCOUNTER → 2022-03-04 14:52 | Outpatient (BNVA) | payer MEDICARE, SELFPAY | PROVIDERS: PCP Family Medicine; Visit Provider Family Medicine | DX: E13.9 Other specified diabetes mellitus without complications (principal); I65.23 Occlusion and stenosis of bilateral carotid arteries | CPT/HCPCS: 80053; 80061; 83036 ==

== ENCOUNTER 2022-03-14 10:28 | Outpatient (CLI) | payer MEDICARE, SELFPAY ==
--- NOTE | 2022-03-14 | MM_ITS ---
WS: [id number] STEREOTACTIC LEFT BREAST BIOPSY WITH VACUUM ASSISTANCE HISTORY: ABNORMAL MAMMOGRAM, duct calcifications. COMPARISON: 01/03/2022, 12/17/2021 Procedure, risks and complications were explained to the patient. Medications and prior radiographs are reviewed. LEFT breast calcifications are located. Calcifications upper outer quadrant middle depth. Calcifications are targeted in the craniocaudal projection. The skin is cleansed with ChloraPrep and anesthetized with 1% buffered lidocaine. Deeper soft tissues anesthetized with a combination of lidocaine and epinephrine. Small dermatome is made. Needle advanced into the LEFT breast. Stereotactic imaging reveals appropriate positioning adjacent calcifications. Multiple vacuum-assisted core biopsies are obtained. No complications were encountered. Post biopsy specimen radiograph reveals numerous calcifications. Biopsy clip is placed in the cavity. Post imaging reveals good placement of the clip. No migration. Pressures held for approximately 15 minutes. No bleeding. Dressing applied. Patient discharged with no complications. There is no bleeding. With any questions or complications patient is to return. MM/[place] vac assist [id number] IMPRESSION: 1. Uncomplicated LEFT breast stereotactic biopsy. 2. Specimen contains numerous calcifications. 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 Intermediate grade 2. Pending diagnostic breast profile. Please see the entire histopathology report. RECOMMENDATION: Follow-up with surgery and oncology. [facility]
--- NOTE | 2022-03-14 | MM_ITS ---
WS: [id number] STEREOTACTIC LEFT BREAST BIOPSY WITH VACUUM ASSISTANCE HISTORY: ABNORMAL MAMMOGRAM, duct calcifications. COMPARISON: 01/03/2022, 12/17/2021 Procedure, risks and complications were explained to the patient. Medications and prior radiographs are reviewed. LEFT breast calcifications are located. Calcifications upper outer quadrant middle depth. Calcifications are targeted in the craniocaudal projection. The skin is cleansed with ChloraPrep and anesthetized with 1% buffered lidocaine. Deeper soft tissues anesthetized with a combination of lidocaine and epinephrine. Small dermatome is made. Needle advanced into the LEFT breast. Stereotactic imaging reveals appropriate positioning adjacent calcifications. Multiple vacuum-assisted core biopsies are obtained. No complications were encountered. Post biopsy specimen radiograph reveals numerous calcifications. Biopsy clip is placed in the cavity. Post imaging reveals good placement of the clip. No migration. Pressures held for approximately 15 minutes. No bleeding. Dressing applied. Patient discharged with no complications. There is no bleeding. With any questions or complications patient is to return. MM/[place] vac assist [id number] IMPRESSION: 1. Uncomplicated LEFT breast stereotactic biopsy. 2. Specimen contains numerous calcifications. 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 Intermediate grade 2. Pending diagnostic breast profile. Please see the entire histopathology report. RECOMMENDATION: Follow-up with surgery and oncology. Dictated By: Em Reynolds DO Signed By: Em Reynolds DO Signed Date/Time: 03/18/22 1042 DD/ 1038 MTDD
--- NOTE | 2022-03-14 10:35 | MM_ITS ---
WS: [id number] STEREOTACTIC LEFT BREAST BIOPSY WITH VACUUM ASSISTANCE HISTORY: ABNORMAL MAMMOGRAM, duct calcifications. COMPARISON: 01/03/2022, 12/17/2021 Procedure, risks and complications were explained to the patient. Medications and prior radiographs a re reviewed. LEFT breast calcifications are located. Calcifications upper outer quadrant middle depth. Calcificati ons are targeted in the craniocaudal projection. The skin is cleansed with ChloraPrep and anesthetize d with 1% buffered lidocaine. Deeper soft tissues anesthetized with a combination of lidocaine and ep inephrine. Small dermatome is made. Needle advanced into the LEFT breast. Stereotactic imaging reveal s appropriate positioning adjacent calcifications. Multiple vacuum-assisted core biopsies are obtaine d. No complications were encountered. Post biopsy specimen radiograph reveals numerous calcifications. Biopsy clip is placed in the cavity. Post imaging reveals good placement of the clip. No migration. Pressures held for approximately 15 minutes. No bleeding. Dressing applied. Patient discharged with n o complications. There is no bleeding. With any questions or complications patient is to return. MM/[place] vac assist [id number] IMPRESSION: 1. Uncomplicated LEFT breast stereotactic biopsy. 2. Specimen contains numerous calcifications. 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 Intermedia te grade 2. Pending diagnostic breast profile. Please see the entire histopatho logy report. RECOMMENDATION: Follow-up with surgery and oncology.
[2022-03-22 08:14] LABS: Miscellaneous Test See Scanned Lab Rpt
== END 2022-03-14 10:29 | disposition home or self-care (01) ==
PROVIDERS: PCP Family Medicine; Visit Provider Internal Medicine Medical Oncology
DX: R92.8 Other abnormal and inconclusive findings on diagnostic imaging of breast (principal); R92.1 Mammographic calcification found on diagnostic imaging of breast; D05.82 Other specified type of carcinoma in situ of left breast
CPT/HCPCS: 19081; 77065; 88305

== ENCOUNTER → 2022-03-28 09:58 | Outpatient (BNVA) | payer MEDICARE, SELFPAY | PROVIDERS: PCP Family Medicine; Visit Provider Internal Medicine Cardiovascular Disease | DX: Z01.810 Encounter for preprocedural cardiovascular examination (principal); I10 Essential (primary) hypertension; I65.23 Occlusion and stenosis of bilateral carotid arteries; I77.9 Disorder of arteries and arterioles, unspecified; I70.1 Atherosclerosis of renal artery; I71.2 Thoracic aortic aneurysm, without rupture; E78.5 Hyperlipidemia, unspecified; E13.9 Other specified diabetes mellitus without complications; F17.210 Nicotine dependence, cigarettes, uncomplicated; E66.9 Obesity, unspecified; Z68.34 Body mass index [BMI] 34.0-34.9, adult; Z79.4 Long term (current) use of insulin | CPT/HCPCS: 99214 ==

== ENCOUNTER 2022-04-13 12:38 | Emergency (ER) | payer MEDICARE, SELFPAY ==
[2022-04-13 12:43] VITALS: BP 131/71; PULSE 81; RESP 16; TEMP 37.1; O2SAT 92
--- NOTE | 2022-04-13 12:52 | W.ED.SOB ---
HPI - SOB/Dyspnea General: Chief Complaint: Shortness of Breath/Dyspnea Stated Complaint: Chest Pain, sob Time Seen by Provider: 04/13/22 12:51 Source: patient Mode of arrival: ambulatory Limitations: no limitations History of Present Illness: HPI Narrative: 81-year-old female presents emergency room with complaint of worsening congestive heart failure. Overnight she has developed increasing orthopnea and shortness of breath on exertion she denies any chest pain or discomfort. She not recently changed any medications. She states she did take an extra dose of Lasix but did not seem to really help she took that earlier today. No fever sweats or chills. Previous echocardiogram showed a ejection fraction of 35 to 40% this was done in March 2021 MD elicited complaint: shortness of breath Pertinent past history: congestive heart failure Onset (ago): hour(s) Timing: constant Severity: mild Exacerbating factors: lying flat and exertion Relieving factors: upright position Known history of: congestive heart failure Associated symptoms: Reports orthopnea; Deny abdominal pain, chest congestion, chest pain, cough, diaphoresis, dizziness, extremity pain, fever(s), hemoptysis, lightheadedness, myalgias, nausea, palpitations, paresthesias, polydipsia, polyuria, rash, sense of impending doom, syncope or vomiting Treatment prior to arrival: none Review of Systems Const: Denies: fever(s), chills or diaphoresis ENMT: Denies: throat pain, ear or mastoid pain, nasal discharge or nasal congestion Card: Reports: edema, swelling of feet/ankles and orthopnea; Denies: chest pain, palpitations, irregular heart rhythm, lightheadedness or syncope Resp: Reports: dyspnea; Denies: productive cough, non-productive cough, wheezing, hemoptysis or chest congestion GI: Denies: abdominal pain, nausea or vomiting : Denies: flank pain, difficulty voiding, dysuria, urinary frequency or urinary urgency Musc: Denies: extremity pain Skin/Breast: Denies: rash or pruritus Neuro: Denies: dizziness Endo: Denies: polyuria or polydipsia [facility] PFSH: Medical History AAA (abdominal aortic aneurysm) Status post stent graft repair Anemia Atopic dermatitis B12 deficiency Bilateral lower extremity edema Breast CA Carotid artery disease CHF (congestive heart failure) Diastolic/Systolic EF 37% 12/14 Chronic kidney disease Chronic pain COPD (chronic obstructive pulmonary disease) CVA (cerebral vascular accident) Descending thoracic aortic 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, 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 Dyslipidemia History of COVID-19 Jul 2021 History of nonmelanoma skin cancer History of stent insertion of renal artery HTN (hypertension) Leg edema Nicotine dependence, cigarettes, with unspecified nicotine-induced disorders Obesity Pneumonia Renal artery stenosis Seasonal allergies Transient cerebral ischemia Surgical History History of aortic aneurysm repair S/P cholecystectomy S/P hysterectomy S/P mastectomy S/P tonsillectomy Family History Other Stroke Social History Smoking and tobacco status: current every day smoker cigarettes Packs smoked per day: 0.25 Alcohol intake: never Physical Exam Const: COMMON NORMALS: no acute distress GENERAL APPEARANCE: cooperative and comfortable ORIENTATION/CONSCIOUSNESS: Yes awake, Yes oriented to person, Yes oriented to place and Yes oriented to time HENMT: COMMON NORMALS: normocephalic, atraumatic and hearing grossly normal bilaterally HEAD & SCALP: normocephalic and atraumatic Neck/C-Spine: COMMON NORMALS: no JVD Resp: COMMON NORMALS: normal respiratory effort, No retractions, No use of accessory muscles and clear to auscultation bilaterally AUSCULTATION: clear to auscultation bilaterally Cardio: COMMON NORMALS: no JVD, regular rate, regular rhythm and No murmurs present (Cardio) RATE: regular rate RHYTHM: regular rhythm GI: COMMON NORMALS: Soft to palpation and No hepatosplenomegaly present AUSCULTATION: Yes normoactive bowel sounds PALPATION: Yes Soft to palpation, No Tenderness to palpation present (GI), No Guarding due to palpation present (GI) and Yes No hepatosplenomegaly present Extremity: COMMON NORMALS: normal to inspection, capillary refill normal and no calf tenderness GENERAL: Yes edema (1+) Neuro: SENSORIUM/ORIENTATION: Yes oriented to person, Yes oriented to place and Yes oriented to time Skin: COMMON NORMALS: no rashes or lesions noted GENERAL SKIN EXAM: no rashes or lesions noted Course Vital Signs: Vital signs: Vital Signs Temperature 98.8 F 04/13/22 12:43 Pulse Rate 80 04/13/22 14:00 Respiratory Rate 18 04/13/22 15:04 Blood Pressure 116/49 04/13/22 14:00 Pulse Oximetry 91 04/13/22 14:00 MDM - SOB/Dyspnea Medical Decision Making Patient is improved after diuresis she prefer to go home we will increase her Lasix and potassium within a couple days follow-up with her primary care doctor return if has problems Medical Records I reviewed the patient's medical records. Lab Data I reviewed the patient's lab results. : 04/13/22 13:14 04/13/22 13:14 Labs/Radiology: Radiology Impressions Chest X-Ray 04/13/22 12:53 IMPRESSION: No acute cardiopulmonary abnormality. Laboratory Results WBC 11.6 10^3/uL (4.0-10.0) H 04/13/22 13:14 RBC 4.04 10^6/uL (4.1-5.3) L 04/13/22 13:14 Hgb 11.5 g/dL (11.5-15.3) 04/13/22 13:14 Hct 35.5 % (37.0-47.0) L 04/13/22 13:14 MCV 87.9 fl (81-99) 04/13/22 13:14 MCH 28.5 pg (28.0-34.0) 04/13/22 13:14 MCHC 32.4 g/dL (30.0-36.0) 04/13/22 13:14 RDW 13.4 % (12.1-15.1) 04/13/22 13:14 Plt Count 385 10^3/cmm (130-400) 04/13/22 13:14 MPV 10.3 fL (7.4-10.4) 04/13/22 13:14 Neut % (Auto) 79.2 % 04/13/22 13:14 Lymph % (Auto) 10.1 % 04/13/22 13:14 [place] % (Auto) 8.6 % 04/13/22 13:14 Eos % (Auto) 1.7 % 04/13/22 13:14 Baso % (Auto) 0.1 % 04/13/22 13:14 Neut # (Auto) 9.15 10^3/uL (1.8-7.7) H 04/13/22 13:14 Lymph # (Auto) 1.2 10^3/uL (0.8-4.8) 04/13/22 13:14 [place] # (Auto) 1.0 10^3/uL (0.2-0.9) H 04/13/22 13:14 Eos # (Auto) 0.2 10^3/uL (0.0-0.8) 04/13/22 13:14 Baso # (Auto) 0.0 10^3/uL (0.0-0.1) 04/13/22 13:14 Nucleated RBC % (auto) 0 % 04/13/22 13:14 Nucleated RBCs # 0.0 /100WBC 04/13/22 13:14 PT 14.80 SECONDS (12.1-14.9) 04/13/22 13:14 INR 1.12 (0.8-1.2) 04/13/22 13:14 APTT 32.8 SECONDS (23.9-36.7) 04/13/22 13:14 Sodium 136 mmol/L (136-145) 04/13/22 13:14 Potassium 3.4 mmol/L (3.5-5.1) L 04/13/22 13:14 Chloride 94 mmol/L (98-107) L 04/13/22 13:14 Carbon Dioxide 32 mmol/L (22-29) H 04/13/22 13:14 Anion Gap 13.4 (5-19) 04/13/22 13:14 BUN 16 mg/dL (8-23) 04/13/22 13:14 Creatinine 1.3 mg/dL (0.5-0.9) H 04/13/22 13:14 GFR Calculation Not Reportable 04/13/22 13:14 Glucose 139 mg/dL (65-115) H 04/13/22 13:14 Calculated Osmolality 285 mOsm/kg (285-295) 04/13/22 13:14 Calcium 8.9 mg/dL (8.5-10.5) 04/13/22 13:14 Total Bilirubin 0.6 mg/dL (0.15-1.2) 04/13/22 13:14 AST 11 U/L (0-32) 04/13/22 13:14 ALT 10 U/L (0-33) 04/13/22 13:14 Alkaline Phosphatase 175 IU/L (35-105) H 04/13/22 13:14 Troponin T Baseline 25 ng/L (0-10) H 04/13/22 13:14 NT-Pro-B Natriuret Pep 2307 pg/mL (0-450) H 04/13/22 13:14 Total Protein 7.6 g/dL (6.6-8.7) 04/13/22 13:14 Albumin 3.7 g/dL (3.5-5.2) 04/13/22 13:14 Globulin 3.9 g/dL (1.3-4.6) 04/13/22 13:14 Discharge Plan Discharge Patient Disposition: Home Clinical Impression: Congestive heart failure, HTN (hypertension) Condition: Stable Prescriptions: No Action montelukast [Singulair] 10 mg tablet 10 mg PO DAILY 0RF aspirin 81 mg tablet,delayed release (DR/EC) 81 mg PO DAILY 0RF ketoconazole 2 % shampoo 1 applic topical ONCE Qty: 120 6RF Rx Instructions: Lather onto scalp 2-3 times weekly. Allow to sit for 5 minutes before rinsing. ketoconazole 2 % cream 1 applic topical BID Qty: 30 6RF Rx Instructions: apply to red, scaly areas on ears on face 1-2 times daily mometasone 0.1 % solution 1 applic topical DAILY Qty: 60 3RF Rx Instructions: Apply a few drops to scalp daily as needed for itch. (DME) FreeStyle Odell 14 Day Sensor Kit See Rx Instructions .Route Qty: 2 11RF Rx Instructions: As directed (DME) FreeStyle Odell 14 Day [place] Misc See Rx Instructions .Route Qty: 1 0RF Rx Instructions: As directed Lantus Solostar U-100 Insulin 100 unit/mL (3 mL) insulin pen 14 unit SUBCUT DAILY 30 Days Qty: 15 5RF clopidogrel 75 mg tablet 75 mg PO DAILY 90 Days Qty: 90 3RF Hold Instructions: Resume on 05/07/21. Until seen by primary care, recheck CBC potassium chloride 10 mEq capsule, extended release 10 meq PO BID 0RF glipizide 5 mg tablet 5 mg PO DAILY 90 Days Qty: 90 0RF loratadine 10 mg tablet 10 mg PO DAILY 90 Days Qty: 90 1RF atorvastatin 80 mg tablet 80 mg PO DAILY Qty: 90 0RF Rx Instructions: must be seen for refills (DME) blood-glucose meter Misc See Rx Instructions .Route Qty: 1 0RF Rx Instructions: As directed with testing strips (DME) Blood Glucose Test Strip See Rx Instructions .Route Qty: 50 0RF Rx Instructions: As directed with glucose machine. oxycodone 10 mg tablet 10 mg PO QID PRN (Reason: Pain) 30 Days Qty: 120 0RF furosemide 20 mg tablet See Rx Instructions .ROUTE .COMPLEX Qty: 60 3RF Dose Instruction: TAKE TWO TABLETS BY MOUTH DAILY AT 8am Rx Instructions: TAKE TWO TABLETS BY MOUTH DAILY AT 8am pantoprazole 40 mg tablet,delayed release (DR/EC) 40 mg PO DAILY Qty: 90 3RF (DME) pen needle, diabetic [TechLITE Pen Needle] 32 gauge x 5/32 needle See Rx Instructions .Route Qty: 100 0RF Rx Instructions: As directed carvedilol 3.125 mg Tablet 3.125 mg PO BID 0RF ferrous gluconate 324 mg (37.5 mg iron) Tablet 324 mg PO BIDWM Qty: 60 0RF cetirizine 10 mg Tablet 10 mg PO DAILY@0800 0RF Discharge Orders: Discharge ED (Routine); Ordered 04/13/22 Ordered By: Duran Roth Referrals: Patti Irwin DO [Primary Care Provider] - Patient Instructions: Opioid Safety Activity Restrictions/Additional Instructions: Increase your Lasix to 2 tablets daily for the next 3 days. Increase your potassium supplement to 2 pills twice daily while on the increased dose of Lasix. 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
--- NOTE | 2022-04-13 12:53 | XRR_ITS ---
PROCEDURE INFORMATION: Exam: XR Chest Exam date and time: 04/13/2022 1:14 PM Age: 81 years old Clinical indication: Cough and dyspnea; Additional info: Dyspnea/cough TECHNIQUE: Imaging protocol: XR of the chest. Views: 1 view. COMPARISON: CT chest abd pel wo con 04/25/2021 9:39 PM FINDINGS: Lungs: The lungs are clear. Pleural spaces: Unremarkable. No pleural effusion. No pneumothorax. Heart/Mediastinum: The heart is normal in size. A stent is again seen in the upper abdominal aorta. Bones/joints: Unremarkable. XR/XR chest 1V portable [id number] IMPRESSION: No acute cardiopulmonary abnormality.
--- NOTE | 2022-04-13 12:53 | ECG_ITS ---
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 Measurements Intervals [employer] Rate: 83 P: 264 ME: 149 QRS: -44 QRSD: 152 T: 72 QT: 417 QTc: 490 Interpretive Statements ECTOPIC ATRIAL RHYTHM LEFT AXIS DEVIATION [QRS AXIS < -30] LEFT BUNDLE BRANCH BLOCK [120+ ms QRS DURATION, 80+ ms Q/S IN V1/V2, 85+ ms R IN I/aVL/V5/V6] Compared to ECG 04/25/2021 23:25:09 Left-axis deviation now present Electronically Signed On 04-13-2022 20:15:38 CDT by Jaxon Fernandes M.D. [id number] f
[2022-04-13 13:33] LABS: Basophils % 0.1 %; Eosinophils # 0.2 10^3/uL (0.0-0.8); Eosinophils % 1.7 %; Hematocrit 35.5 % (37.0-47.0); Hemoglobin 11.5 g/dL (11.5-15.3); Lymphocytes # 1.2 10^3/uL (0.8-4.8); Lymphocytes % 10.1 %; Mean Corpuscular HGB Conc 32.4 g/dL (30.0-36.0); Mean Corpuscular Hemoglobin 28.5 pg (28.0-34.0); Mean Corpuscular Volume 87.9 fl (81-99); Mean Platelet Volume 10.3 fL (7.4-10.4); Monocytes % 8.6 %; Neutrophils # 9.15 10^3/uL (1.8-7.7); Neutrophils % 79.2 %; Nucleated Red Blood Cells % 0 %; Platelet Count 385 10^3/cmm (130-400); Red Blood Count 4.04 10^6/uL (4.1-5.3); Red Cell Distribution Width 13.4 % (12.1-15.1); White Blood Count 11.6 10^3/uL (4.0-10.0)
[2022-04-13 13:42] LABS: INR 1.12 (0.8-1.2)
[2022-04-13 13:43] LABS: Partial Thromboplastin Time 32.8 SECONDS (23.9-36.7)
[2022-04-13 13:52] LABS: Troponin(5th) Baseline 25 ng/L (0-10)
[2022-04-13] MEDS: FUROsemide 10 mg/mL SDV 10mL 60 MG IVP (13:53)
[2022-04-13 14:00] VITALS: BP 116/49; PULSE 80; RESP 20; O2SAT 91
[2022-04-13 14:04] LABS: Alanine Aminotransferase 10 U/L (0-33); Albumin Level 3.7 g/dL (3.5-5.2); Alkaline Phosphatase 175 IU/L (35-105); Anion Gap 13.4 (5-19); Aspartate Amino Transferase 11 U/L (0-32); Blood Urea Nitrogen 16 mg/dL (8-23); Calcium 8.9 mg/dL (8.5-10.5); Carbon Dioxide 32 mmol/L (22-29); Chloride 94 mmol/L (98-107); Globulin 3.9 g/dL (1.3-4.6); Glucose 139 mg/dL (65-115); NT Pro B Type Natriuretic Pept 2307 pg/mL (0-450); Osmolality Calculated 285 mOsm/kg (285-295); Potassium 3.4 mmol/L (3.5-5.1); Sodium 136 mmol/L (136-145); Total Bilirubin 0.6 mg/dL (0.15-1.2); Total Protein 7.6 g/dL (6.6-8.7)
[2022-04-13 15:04] VITALS: RESP 18
== END 2022-04-13 13:01 | disposition home or self-care (01) ==
PROVIDERS: Emergency Provider Family Medicine; PCP Family Medicine
DX: I13.0 Hypertensive heart and chronic kidney disease with heart failure and stage 1 through stage 4 chronic kidney disease, or unspecified chronic kidney disease (principal); I50.9 Heart failure, unspecified; N18.9 Chronic kidney disease, unspecified; E11.22 Type 2 diabetes mellitus with diabetic chronic kidney disease; J44.9 Chronic obstructive pulmonary disease, unspecified; E78.5 Hyperlipidemia, unspecified; E66.9 Obesity, unspecified; Z68.32 Body mass index [BMI] 32.0-32.9, adult; Z86.73 Personal history of transient ischemic attack (TIA), and cerebral infarction without residual deficits
CPT/HCPCS: 71045; 80053; 83880; 84484; 85025; 85610; 85730; 93005; 96374; 99284; J1940

== ENCOUNTER 2022-05-02 06:00 | Day surgery (SDC) | payer MEDICARE, SELFPAY ==
[2022-05-01 10:56] VITALS: BMI 32.5
[2022-05-02] VITALS (12 sets, daily range): BP systolic 119–167; BP diastolic 70–96; PULSE 81–105; RESP 16–18; TEMP 36.1–36.6; O2SAT 90–95
[2022-05-02] MEDS: sodium chloride 0.9% 1,000 ML 30 ML IV (06:30)
[2022-05-02 06:35] LABS: Glucose Point of Care 116 mg/dL (70-110)
--- NOTE | 2022-05-02 06:45 | SUR.PREOP ---
0698 dr karimi here and asked about pt's allergy to pcn, cefazolin ordered information receptionist to OR dr karimi stated pt has had this before with no issues
--- NOTE | 2022-05-02 06:45 | W.PM.OPSUD ---
Surgery/Procedure H&P Update DATE OF PROCEDURE: May 02, 2022 DATE H&P PERFORMED: 03/30/22 H&P UPDATE INFORMATION: Changes to prior documentation as noted here (Patient stopped her Plavix late last week earlier than instructed because I scratched my arm and it took forever to stop bleeding. ) PREOP DIAGNOSIS: Left breast ductal carcinoma in situ. PLANNED PROCEDURE: Operation Date: 05/02/22 07:00 Proposed Procedures p Left Mastectomy Simple 25741(Left) - John Vo MD
--- NOTE | 2022-05-02 06:57 | P.ANESASSM_ITS ---
Pre-Anesthetic Assessment Height/Weight: Height 1.57 m Weight 80.739 kg Temp Pulse Resp BP Pulse Ox 97.6 F 81 16 163/78 95 05/02/22 06:33 05/02/22 06:33 05/02/22 06:33 05/02/22 06:33 05/02/22 06:33 Preop Diagnosis: Left breast ductal carcinoma in situ. Operation Date: 05/02/22 07:00 Proposed Procedures p Left Mastectomy Simple (Left) - John Vo MD Familial anesthetic complications: none Was Beta Ed taken within 24 hours: Yes Was Clonidine taken within 24 hours: N/A Last intake: Intake Last Liquid Date 05/01/22 Last Liquid Time 00:00 Last Solid Date 05/01/22 Last Solid Time 22:00 Social Tobacco and No alcohol Exam alert, oriented x 3 and regular rate & rhythm diminished b/l Airway Submandibular: within normal limits Cervical ROM: within normal limits Mallampati: Class II Dentition: false Pulmonary Chronic Obstructive Pulmonary Disease CV/HEM Anemia, Congestive Heart Failure and Hypertension AAA Thoracic aneurysm CHINO Carotid stenosis Chronic Renal Insufficiency GI Gastroesophageal Reflux Disease Metabolic Diabetes Mellitus [facility] [place] Lower Back Pain and Osteoarthritis/DJD Neuropsych Cerebrovascular Accident and Neuropathy Anesthetic Plan ASA status: 3 Anesthesia: Anesthesia Evaluation, General and MAC Other: We discussed risk and benefits of general anesthesia including PONV, sore throat (sometimes severe), corneal abrasion, positioning and peripheral nerve injuries, life threatening allergic reaction, post operative ICU admission requiring prolonged intubation, aspiration, stroke, heart attack, , and rare incidences of recall. I discussed with the patient risks, goals, and benefits of MAC and general anesthesia. We discussed spectrum of MAC anesthesia including conversion to general as well as possibility of recall of intraoperative stimuli including discomfort/pain. Patient consents to MAC or General pending further discussion with surgeon. Risk of > 500 ml blood loss (7ml/kg in children): No Medications/Allergies Home Medications Medication Instructions Recorded Confirmed Last Taken Type montelukast 10 mg tablet 10 mg PO DAILY 01/24/20 05/02/22 05/01/22 History (Singulair) carvedilol 3.125 mg tablet 3.125 mg PO BID 02/20/21 05/02/22 05/02/22 History cetirizine 10 mg tablet 10 mg PO DAILY@0800 04/18/21 05/02/22 05/01/22 History ferrous gluconate 324 mg (37.5 mg 324 mg PO BIDWM #60 tab 04/27/21 05/02/22 05/01/22 Rx iron) tablet glipizide 5 mg tablet 5 mg PO DAILY 90 Days #90 tab 10/17/21 05/02/22 05/01/22 Rx aspirin 81 mg tablet,delayed 81 mg PO DAILY 02/19/22 05/02/22 05/01/22 History release mometasone 0.1 % topical solution 1 applic TOPICAL DAILY #60 ml 02/19/22 05/02/22 05/01/22 Rx atorvastatin 80 mg tablet 80 mg PO DAILY #90 tab 03/01/22 05/02/22 05/01/22 Rx clopidogrel 75 mg tablet 75 mg PO DAILY 90 Days #90 tab 03/04/22 05/01/22 04/25/22 Rx flash glucose scanning reader #1 ea 03/04/22 05/01/22 Unknown Rx (FreeStyle [place] 14 Day [place]) flash glucose sensor (FreeStyle #2 ea 03/04/22 05/01/22 Unknown Rx Odell 14 Day Sensor) insulin glargine 100 unit/mL (3 14 unit (0.14 mL) SUBCUT DAILY 30 03/04/22 05/02/22 05/01/22 Rx mL) subcutaneous pen (Lantus Days #15 ml Solostar U-100 Insulin) blood sugar diagnostic (Blood #50 ea 03/06/22 05/01/22 Unknown Rx Glucose Test) blood-glucose meter #1 ea 03/06/22 05/01/22 Unknown Rx pantoprazole 40 mg tablet,delayed 40 mg PO DAILY #90 tab 04/12/22 05/02/22 05/01/22 Rx release pen needle, diabetic 32 gauge x #100 ea 04/12/22 05/01/22 Unknown Rx 5/32 (TechLITE Pen Needle) fluticasone propionate 50 2 spray INTRANASAL DAILY #16 g 04/15/22 05/02/22 05/01/22 Rx mcg/actuation nasal spray,suspension (Flonase Allergy Relief) furosemide 20 mg tablet 20 mg PO DAILY 05/01/22 05/02/22 05/01/22 History potassium chloride 10 mEq 10 meq PO BID 05/01/22 05/02/22 05/01/22 History capsule,extended release oxycodone 10 mg tablet 10 mg PO QID PRN 05/02/22 05/02/22 05/01/22 History Allergies Allergy/AdvReac Type Severity Reaction Status Date / Time adhesive tape Allergy Unknown Unknown Verified 04/15/22 14:07 bacitracin Allergy Unknown Unknown Verified 04/15/22 14:07 [From Neosporin ([id number])] codeine Allergy Unknown Unknown Verified 04/15/22 14:07 neomycin Allergy Unknown Unknown Verified 04/15/22 14:07 [From Neosporin ([id number])] penicillamine Allergy Unknown Unknown Verified 04/15/22 14:07 Penicillins Allergy Unknown Unknown Verified 04/15/22 14:07 polymyxin B Allergy Unknown Unknown Verified 04/15/22 14:07 [From Neosporin ([id number])] prochlorperazine Allergy Unknown Unknown Verified 04/15/22 14:07 [From Compazine] Sulfa (Sulfonamide Allergy Unknown Unknown Verified 04/15/22 14:07 Antibiotics) Current Medications Generic Name Dose Route Start Last Admin Trade Name Freq PRN Reason Stop Dose Admin Sodium Chloride 1,000 mls @ 30 mls/hr 05/02/22 06:15 05/02/22 06:30 Sodium Chloride 0.9% IV 05/03/22 06:14 30 mls/hr .Q24H MICHELE Administration PFSH Anesthesia Medical History AAA (abdominal aortic aneurysm) Status post stent graft repair Anemia Atopic dermatitis B12 deficiency Bilateral lower extremity edema Breast CA Carotid artery disease CHF (congestive heart failure) Diastolic/Systolic EF 37% 12/14 Chronic kidney disease Chronic pain COPD (chronic obstructive pulmonary disease) CVA (cerebral vascular accident) Descending thoracic aortic 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, 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 Dyslipidemia History of COVID-12 Aug 2021 History of nonmelanoma skin cancer History of stent insertion of renal artery HTN (hypertension) Leg edema Nicotine dependence, cigarettes, with unspecified nicotine-induced disorders Obesity Pneumonia Renal artery stenosis Seasonal allergies Transient cerebral ischemia Surgical History History of aortic aneurysm repair S/P cholecystectomy S/P hysterectomy S/P mastectomy S/P tonsillectomy Family History Other Stroke Social History Smoking and tobacco status: current every day smoker cigarettes Packs smoked per day: 0.25 Alcohol intake: never Data Anesthesia Cardiac Studies: Echocardiogram Ultrasound 04/19/21 Sestamibi Stress Test (Cardiology) 04/27/21
--- NOTE | 2022-05-02 07:53 | P.OP_ITS ---
Operative Report Date of procedure: May 02, 2022 Pre-op diagnosis: Preop Diagnosis Left breast ductal carcinoma in situ. Post-op diagnosis: Same. Procedure done: Left simple mastectomy. Specimens removed/disposition: Left breast. Surgeon: General Surgery John Vo MD Anesthesia: General Estimated blood loss: 25 mL Complications: None. Procedure: The patient was brought to the operating room and was placed in a supine position on the operating room table. General anesthesia was induced. The left breast and axilla were prepped and draped in a sterile fashion. An elliptical incision was carried out from the sternum, surrounding the entire nipple areolar complex and coming back together at the inferior aspect of the axilla. Cautery was used to divide the dermis and was used to maintain hemostasis throughout the procedure. Skin flaps were created both superiorly and inferiorly by elevating the skin with skin hooks and using cautery to divide the breast tissue at the junction of the breast tissue and subcutaneous fat. This was carried out down to the chest wall both superiorly and inferiorly as well as medially, encompassing all of the breast tissue. The breast was then taken off of the chest wall using cautery from a medial to lateral direction. Significant vessels seen during the dissection were ligated with ties of 2-0 Vicryl. The dissection was then carried out around the lateral edge of the pectoralis muscle and inferior aspect of the axilla was entered. No enlarged lymph nodes were palpated or seen. An effort was made to remove the tail of [place]son into the inferior aspect of the axilla. The specimen was removed. The entire wound was irrigated and some small bleeding points were controlled with cautery. A 19 [place]ic fluted Dariusz drain was brought through a separate stab incision underneath the incision laterally under the axilla. The drain was sewn in at the skin using a suture of 2-0 silk. The drain was laid along the axilla and up along the anterior chest wall under the skin flaps. The dermis at the incision was brought back together using multiple inverted interrupted sutures of 3-0 Vicryl and the skin was finally approximated using skin justa. Some Vaseline coated gauze was placed over the incision and a sterile fluff dressing and a post mastectomy binder/brassiere followed. The patient was taken to the recovery room in stable condition postoperatively.
[2022-05-02] MEDS: fentaNYL 50 mcg/mL INJ 2mL IVP (08:19)
[2022-05-02] MEDS: ondansetron 2 mg/ML SDV 2 mL 4 MG IVP (08:32)
[2022-05-02] MEDS: oxyCODONE-APAP 10-325 mg Tablet 1 TAB PO (09:00)
--- NOTE | 2022-05-02 09:33 | SUR.PHASEII ---
0925 instructed pt's granddaughter Crissy how to empty and care for jamel(radha) drain and verbalized understanding
--- NOTE | 2022-05-02 13:29 | ANE.PACU2 ---
Inpatient post-anesthesia follow up: Airway intact: Yes Vital signs: Temperature 98 F Pulse Rate 95 Respiratory Rate 16 Blood Pressure 155/74 Pulse Oximetry 94 Oxygen Delivery Me thod Room Air Oxygen Flow Rate Fraction of Inspir ed Oxygen Hydration adequate: Yes Nausea and vomiting: No Pain level: 6 Mental status: Baseline
[2022-05-09 10:58] LABS: Miscellaneous Test See Scanned Lab Rpt
== END 2022-05-02 09:30 | disposition home or self-care (01) ==
PROVIDERS: PCP Family Medicine; Visit Provider Surgery
PROC: (CPT 19303; principal; 2022-05-02 07:00)
DX: C50.912 Malignant neoplasm of unspecified site of left female breast (principal); J44.9 Chronic obstructive pulmonary disease, unspecified; I11.0 Hypertensive heart disease with heart failure; I50.9 Heart failure, unspecified; K21.9 Gastro-esophageal reflux disease without esophagitis; Z86.73 Personal history of transient ischemic attack (TIA), and cerebral infarction without residual deficits; Z79.4 Long term (current) use of insulin; E13.22 Other specified diabetes mellitus with diabetic chronic kidney disease; I13.0 Hypertensive heart and chronic kidney disease with heart failure and stage 1 through stage 4 chronic kidney disease, or unspecified chronic kidney disease; N18.9 Chronic kidney disease, unspecified; Z80.3 Family history of malignant neoplasm of breast; E11.42 Type 2 diabetes mellitus with diabetic polyneuropathy; E78.5 Hyperlipidemia, unspecified; Z86.16 Personal history of COVID-19; E66.9 Obesity, unspecified; Z68.32 Body mass index [BMI] 32.0-32.9, adult; F17.210 Nicotine dependence, cigarettes, uncomplicated
CPT/HCPCS: 19303; 36415; 36416; 82962; 88307; 88361; 88374; J0330; J1100; J2370; J2405; J2704; J3010; J3490; J7030

== ENCOUNTER 2022-05-23 09:22 | Oncology outpatient (recurring) (ONCR) | payer MEDICARE, SELFPAY ==
[2022-05-23 10:40] LABS: Basophils % 0.3 %; Eosinophils # 0.5 10^3/uL (0.0-0.8); Eosinophils % 6.9 %; Hematocrit 35.7 % (37.0-47.0); Hemoglobin 11.7 g/dL (11.5-15.3); Lymphocytes # 2.2 10^3/uL (0.8-4.8); Lymphocytes % 28.8 %; Mean Corpuscular HGB Conc 32.8 g/dL (30.0-36.0); Mean Corpuscular Hemoglobin 28.1 pg (28.0-34.0); Mean Corpuscular Volume 85.8 fl (81-99); Mean Platelet Volume 10.1 fL (7.4-10.4); Monocytes # 0.7 10^3/uL (0.2-0.9); Monocytes % 9.6 %; Neutrophils # 4.18 10^3/uL (1.8-7.7); Neutrophils % 54.3 %; Nucleated Red Blood Cells % 0 %; Platelet Count 377 10^3/cmm (130-400); Red Blood Count 4.16 10^6/uL (4.1-5.3); White Blood Count 7.7 10^3/uL (4.0-10.0)
[2022-05-23 10:57] LABS: Alanine Aminotransferase 7 U/L (0-33); Albumin Level 3.5 g/dL (3.5-5.2); Alkaline Phosphatase 153 IU/L (35-105); Anion Gap 11.4 (5-19); Aspartate Amino Transferase 9 U/L (0-32); Blood Urea Nitrogen 14 mg/dL (8-23); Calcium 8.6 mg/dL (8.5-10.5); Carbon Dioxide 31 mmol/L (22-29); Chloride 99 mmol/L (98-107); Globulin 3.3 g/dL (1.3-4.6); Glucose 93 mg/dL (65-115); Osmolality Calculated 286 mOsm/kg (285-295); Potassium 3.4 mmol/L (3.5-5.1); Sodium 138 mmol/L (136-145); Total Bilirubin 0.4 mg/dL (0.15-1.2); Total Protein 6.8 g/dL (6.6-8.7)
[2022-05-23 11:14] LABS: Iron 44 ug/dL (37-145); Percent Saturation 17.2 % (20-50); Total Iron Binding Capacity 255 mcg/dl; Unsaturated Iron Binding 211 ug/dL (112-347)
[2022-05-23 22:20] LABS: Estmated Average Glucose 160; Hemoglobin A1C 7.2 % (4.0-6.0)
== END 2022-05-23 23:59 | disposition home or self-care (01) ==
PROVIDERS: PCP Family Medicine; Visit Provider Internal Medicine Medical Oncology
DX: C50.812 Malignant neoplasm of overlapping sites of left female breast (principal); C50.411 Malignant neoplasm of upper-outer quadrant of right female breast; Z17.0 Estrogen receptor positive status [ER+]; Z90.13 Acquired absence of bilateral breasts and nipples; D64.9 Anemia, unspecified; Z79.818 Long term (current) use of other agents affecting estrogen receptors and estrogen levels; Z79.899 Other long term (current) drug therapy
CPT/HCPCS: 80053; 83036; 83540; 83550; 85025; 99215

== ENCOUNTER 2022-06-27 12:27 | Emergency (ER) | payer MEDICARE, SELFPAY ==
[2022-06-27] VITALS (7 sets, daily range): BP systolic 97–108; BP diastolic 40–52; PULSE 75–85; RESP 16–21; TEMP 37.1; O2SAT 91–98
--- NOTE | 2022-06-27 12:34 | W.ED.NAVMDI ---
HPI - Nausea/Vomiting/Diarrhea General: Chief complaint: Nausea/Vomiting/Diarrhea Stated complaint: N/V/D Time Seen by Provider: 06/27/22 12:33 History of Present Illness: Ms. Slater is a 81-year-old lady with history of hypertension, hyperlipidemia, anemia, CAD, diabetes, breast cancer on oral medication who presents to the emergency department due to nausea, vomiting, diarrhea, and abdominal pain. She reports onset of symptoms 3 to 4 days ago and subacute without known provoking or inciting event. She has had greater than 10 episodes of watery diarrhea and numerous episodes of emesis which is now just dry heaves at this point. She has associated generalized abdominal cramping which is moderate in intensity. Symptoms are provoked by any oral intake including water. Overall course of symptoms has persisted. She feels dehydrated associated with some lightheadedness. Denies chest pain or respiratory symptoms. No sick contacts or recent antibiotic use. No other specific changes in health, exacerbating, or alleviating factors identified. Onset (ago): day(s) Description of vomiting: watery Description of diarrhea: watery Associated nausea: Yes Associated abdominal pain: Yes Location of pain: Diffuse Pain consistency: intermittent Quality: cramping Exacerbating factors: eating Relieving factors: none Associated symtoms: Reports nausea Review of Systems General: Reports: 10 or more systems reviewed and unremarkable except in HPI and below GI: Reports: nausea PFSH ED PFSH: Medical History AAA (abdominal aortic aneurysm) Status post stent graft repair Anemia Atopic dermatitis B12 deficiency Breast CA Carotid artery disease CHF (congestive heart failure) Diastolic/Systolic EF 37% 12/14 Chronic kidney disease Chronic pain COPD (chronic obstructive pulmonary disease) CVA (cerebral vascular accident) Descending thoracic aortic 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, 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 Dyslipidemia History of COVID-12 Aug 2021 History of nonmelanoma skin cancer HTN (hypertension) Nicotine dependence, cigarettes, with unspecified nicotine-induced disorders Obesity Osteoporosis Pneumonia Renal artery stenosis Seasonal allergies Surgical History History of aortic aneurysm repair History of stent insertion of renal artery S/P cholecystectomy S/P hysterectomy S/P mastectomy (08/2009) Right modified radical mastectomy S/P tonsillectomy Family History Other Stroke Social History Smoking and tobacco status: current every day smoker (0.5 ppd) cigarettes Packs smoked per day: 0.25 Alcohol intake: never Physical Exam Const: COMMON NORMALS: alert GENERAL APPEARANCE: cooperative and well developed HENMT: COMMON NORMALS: normocephalic and atraumatic HEAD & SCALP: normocephalic and atraumatic THROAT: posterior oropharynx normal OTHER: Dry mucous membranes Eye: COMMON NORMALS: conjunctivae normal CONJUNCTIVA: Yes conjunctivae normal SCLERA: sclerae normal Neck/C-Spine: COMMON NORMALS: supple GENERAL: Yes trachea midline Resp: COMMON NORMALS: normal respiratory effort and clear to auscultation bilaterally EFFORT & INSPECTION: Yes able to speak in complete sentences AUSCULTATION: clear to auscultation bilaterally Cardio: COMMON NORMALS: regular rate and regular rhythm RATE: regular rate RHYTHM: regular rhythm GI: COMMON NORMALS: Soft to palpation PALPATION: Yes Soft to palpation, Yes Tenderness to palpation present (GI), No Guarding due to palpation present (GI) and No Rigid due to palpation PERCUSSION: normal to percussion Extremity: GENERAL: Yes normal exam except as noted and No edema Neuro: COMMON NORMALS: moves all extremities SENSORIUM/ORIENTATION: Yes alert and No Orientation impaired Psych: COMMON NORMALS: mental status grossly normal and Normal thought process present THOUGHT PROCESS: Normal thought process present Course ED course: - Patient was seen and evaluated by me at bedside - Patient placed on cardiac monitors, IV access obtained - Initial evaluation notable for exam as above - Labs personally interpreted by me. EKG shows a sinus rhythm with first-degree AV block, bundle branch block, no STEMI. - Fluids and antiemetic given - Labs notable for mild leukocytosis, normocytic anemia. No acute electrolyte derangement, mildly elevated creatinine. Possible UTI. - Imaging notable for mild luminal narrowing in the transverse colon with circumferential mucosal thickening. Recommendation for colonoscopy discussed with patient. - Upon serial reexamination after treatment the patient was improved. Patient able to tolerate p.o. intake. - Based on patient history, evaluation, and testing as interpreted the most likely cause of the patient's condition is UTI with evidence of nonspecific dehydration. Improved with treatment. - The results of ED evaluation were discussed with the patient including prescriptions and/or symptomatic cares (if applicable) including appropriate and responsible use, followup plan, and return precautions. The patient verbalized understanding and felt safe for discharge. - Patient discharged in satisfactory condition. Note: Click bubbles or prepopulated jiménez in note writing are used for assistance with data collection and billing and are inherently more limited than narrative and other text portions of this note. Please use narrative for additional clinical history and defer to narrative/free test for any case of contradictory information. If information appears in only free text or click bubble it should be considered present or absent as reported. Please contact note service writer for clarifications of clinical information or contradictory information. MDM is a brief summary, contradictory or erroneous seeming information should be clarified and full note should be reviewed. Vital Signs: Vital signs: Vital Signs Temperature 98.7 F 06/27/22 12:42 Pulse Rate 75 06/27/22 15:00 Respiratory Rate 21 H 06/27/22 15:00 Blood Pressure 104/46 06/27/22 16:45 Pulse Oximetry 96 06/27/22 15:00 Oxygen Delivery Me thod 06/27/22 13:16 MDM - Nausea/Vomiting/Diarrhea Medical Decision Making 81-year-old lady presenting with abdominal symptoms. Patient found to have UTI and incidental CT findings requiring follow-up which were discussed. Patient improved with treatment and satisfactory for outpatient management. Medical Records I reviewed the patient's medical records. Lab Data I reviewed the patient's lab results. : 06/27/22 13:13 06/27/22 13:13 Radiology Impressions Abdomen/Pelvis CT 06/27/22 13:07 IMPRESSION: 1. Sigmoid diverticulosis. No evidence of acute diverticulitis 2. Stable aortic endograft with biiliac extension. 3. No evidence of high-grade small or large bowel obstruction. 4. Mild luminal narrowing in the transverse colon with circumferential mucosal thickening. Recommend further evaluation with colonoscopy to exclude neoplasm 5. Prior cholecystectomy and hysterectomy. 6. Cardiomegaly. Laboratory Results WBC 11.6 10^3/uL (4.0-10.0) H 06/27/22 13:13 RBC 3.88 10^6/uL (4.1-5.3) L 06/27/22 13:13 Hgb 11.1 g/dL (11.5-15.3) L 06/27/22 13:13 Hct 34.3 % (37.0-47.0) L 06/27/22 13:13 MCV 88.4 fl (81-99) 06/27/22 13:13 MCH 28.6 pg (28.0-34.0) 06/27/22 13:13 MCHC 32.4 g/dL (30.0-36.0) 06/27/22 13:13 RDW 14.6 % (12.1-15.1) 06/27/22 13:13 Plt Count 376 10^3/cmm (130-400) 06/27/22 13:13 MPV 10.1 fL (7.4-10.4) 06/27/22 13:13 Neut % (Auto) 77.3 % 06/27/22 13:13 Lymph % (Auto) 10.2 % 06/27/22 13:13 [place] % (Auto) 10.6 % 06/27/22 13:13 Eos % (Auto) 1.5 % 06/27/22 13:13 Baso % (Auto) 0.2 % 06/27/22 13:13 Neut # (Auto) 8.99 10^3/uL (1.8-7.7) H 06/27/22 13:13 Lymph # (Auto) 1.2 10^3/uL (0.8-4.8) 06/27/22 13:13 [place] # (Auto) 1.2 10^3/uL (0.2-0.9) H 06/27/22 13:13 Eos # (Auto) 0.2 10^3/uL (0.0-0.8) 06/27/22 13:13 Baso # (Auto) 0.0 10^3/uL (0.0-0.1) 06/27/22 13:13 Nucleated RBC % (auto) 0 % 06/27/22 13:13 Nucleated RBCs # 0.0 /100WBC 06/27/22 13:13 Sodium 137 mmol/L (136-145) 06/27/22 13:13 Potassium 3.8 mmol/L (3.5-5.1) 06/27/22 13:13 Chloride 98 mmol/L (98-107) 06/27/22 13:13 Carbon Dioxide 30 mmol/L (22-29) H 06/27/22 13:13 Anion Gap 12.8 (5-19) 06/27/22 13:13 BUN 23 mg/dL (8-23) 06/27/22 13:13 Creatinine 1.5 mg/dL (0.5-0.9) H 06/27/22 13:13 GFR Calculation Not Reportable 06/27/22 13:13 Glucose 96 mg/dL (65-115) 06/27/22 13:13 Calculated Osmolality 288 mOsm/kg (285-295) 06/27/22 13:13 Lactate 1.1 mmol/L (0.5-2.2) 06/27/22 13:13 Calcium 8.9 mg/dL (8.5-10.5) 06/27/22 13:13 Magnesium 1.7 mg/dL (1.7-2.3) 06/27/22 13:13 Total Bilirubin 0.6 mg/dL (0.15-1.2) 06/27/22 13:13 AST 10 U/L (0-32) 06/27/22 13:13 ALT 7 U/L (0-33) 06/27/22 13:13 Alkaline Phosphatase 131 IU/L (35-105) H 06/27/22 13:13 Total Protein 6.5 g/dL (6.6-8.7) L 06/27/22 13:13 Albumin 3.6 g/dL (3.5-5.2) 06/27/22 13:13 Globulin 2.9 g/dL (1.3-4.6) 06/27/22 13:13 Lipase 8 U/L (13-60) L 06/27/22 13:13 Urine Color Yellow (Yellow) 06/27/22 15:21 Urine Appearance Hazy (CLEAR) A 06/27/22 15:21 Urine pH 5 (5-7) 06/27/22 15:21 Ur Specific [place] 1.005 (1.005-1.030) 06/27/22 15:21 Urine Protein Neg (Negative) 06/27/22 15:21 Urine Glucose (UA) Norm (Normal) 06/27/22 15:21 Urine Ketones Negative (Negative) 06/27/22 15:21 Urine Blood 3+ (Negative) H 06/27/22 15:21 Urine Nitrate Negative (Negative) 06/27/22 15:21 Urine Bilirubin Neg (Negative) 06/27/22 15:21 Urine Urobilinogen Norm mg/dL (Negative) 06/27/22 15:21 Ur Leukocyte Esterase 2+ (Negative) H 06/27/22 15:21 Urine RBC 0-4 /hpf (0-2) H 06/27/22 15:21 Urine WBC 0-4 /hpf (0-5) H 06/27/22 15:21 Ur Squamous Epith Cells 0-4 /hpf (0-5) H 06/27/22 15:21 Amorphous Sediment 2+ /hpf 06/27/22 15:21 Urine Bacteria 2+ /hpf (NONE) H 06/27/22 15:21 Discharge Plan Discharge Patient Disposition: Home Clinical Impression: Nausea, vomiting, and diarrhea, Dehydration, UTI (urinary tract infection), Abnormal CT scan, colon Condition: Stable Prescriptions: New ondansetron 4 mg tablet,disintegrating 4 mg PO Q8H PRN (Reason: nausea and vomiting) Qty: 15 0RF No Action montelukast [Singulair] 10 mg tablet 10 mg PO DAILY aspirin 81 mg tablet,delayed release (DR/EC) 81 mg PO DAILY mometasone 0.1 % solution 1 applic topical DAILY Qty: 60 3RF Rx Instructions: Apply a few drops to scalp daily as needed for itch. lisinopril 2.5 mg tablet 2.5 mg PO DAILY Qty: 30 3RF (DME) FreeStyle Odell 14 Day Sensor Kit See Rx Instructions .Route Qty: 2 11RF Rx Instructions: As directed (DME) FreeStyle Odell 14 Day [place] Misc See Rx Instructions .Route Qty: 1 0RF Rx Instructions: As directed clopidogrel 75 mg tablet 75 mg PO DAILY 90 Days Qty: 90 3RF Hold Instructions: Resume on 05/07/21. Until seen by primary care, recheck CBC prednisone 20 mg tablet 20 mg PO BID 5 Days Qty: 10 0RF glipizide 5 mg tablet 5 mg PO DAILY 90 Days Qty: 90 0RF (DME) blood-glucose meter Misc See Rx Instructions .Route Qty: 1 0RF Rx Instructions: As directed with testing strips (DME) Blood Glucose Test Strip See Rx Instructions .Route Qty: 50 0RF Rx Instructions: As directed with glucose machine. pantoprazole 40 mg tablet,delayed release (DR/EC) 40 mg PO DAILY Qty: 90 3RF (DME) pen needle, diabetic [TechLITE Pen Needle] 32 gauge x 5/32 needle See Rx Instructions .Route Qty: 100 0RF Rx Instructions: As directed exemestane 25 mg tablet 25 mg PO DAILY Qty: 30 3RF Rx Instructions: must administer after a meal carvedilol 3.125 mg tablet 3.125 mg PO BID Qty: 180 1RF oxycodone 10 mg tablet 10 mg PO QID PRN (Reason: Pain) 30 Days Qty: 120 0RF loratadine 10 mg Tablet 10 mg PO DAILY atorvastatin 80 mg tablet 80 mg PO BEDTIME Flonase Allergy Relief 50 mcg/actuation spray,suspension 2 spray intranasal DAILY PRN (Reason: Nasal Congestion) Rx Instructions: administer into each nostril Lantus Solostar U-100 Insulin 100 unit/mL (3 mL) insulin pen 14 unit SUBCUT BEDTIME potassium chloride 10 mEq capsule, extended release 10 meq PO BID furosemide 20 mg tablet 20 mg PO BID Discharge Orders: Discharge ED (Routine); Ordered 06/27/22 Ordered By: Dilshad Couch Referrals: Patti Irwin DO [Primary Care Provider] - Discharge Diet: Advance as tolerated and Clear Liquid Discharge Activity: Increase activity as tolerated Patient Instructions: Urinary Tract Infection in Women (ED), Acute Nausea and Vomiting (ED), Acute Diarrhea (ED), Abdominal Pain (ED) Activity Restrictions/Additional Instructions: Thank you for visiting the emergency department. You were seen and evaluated for nausea, vomiting, diarrhea. The exact cause of your symptoms is unclear though may partially be related to urinary tract infection. You will be treated with antibiotics and be given a prescription for antinausea medication. I recommend bland or clear liquid diet advancing as tolerated. Please ensure that you are staying hydrated. Please follow-up with your primary care provider. Please return to the emergency department for inability to tolerate oral intake, uncontrolled symptoms, worsening of current symptoms, or anything else that you are concerned about a feel needs emergency department evaluation. As discussed, you do have abnormality on your CT scan that requires follow-up which can be arranged through your primary care provider. I will also message case management for assistance. Mild luminal narrowing in the transverse colon with circumferential mucosal thickening. Recommend further evaluation with colonoscopy to exclude neoplasm. Coding Level of Care Code ED Double Head Machine Operator for Chg Fwd Exam Comprehensive
--- NOTE | 2022-06-27 13:07 | CT_ITS ---
WS: [id number] CT ABDOMEN PELVIS TECHNIQUE: Noncontrast CT of the abdomen and pelvis with coronal and sagittal reformatted images. CLINICAL INFORMATION: n/v/d 3 days, generalized abd pain COMPARISON: CT April 25, 2021 DLP: 785.[address] scans at [facility] use at least one of these dose optimization techniques: automated e xposure control; mA and/or kV adjustment per patient size (includes targeted exams where dose is matc hed to clinical indication); or iterative reconstruction. FINDINGS: Prior postoperative changes cholecystectomy. Prior hysterectomy. Prior aortic endograft repair with b iiliac extension. Bilateral renal artery stents. Excluded aneurysm sac measures approximately 4.7 x 4 .8 cm. Cardiomegaly. Lung bases are well aerated. Noncontrast liver is normal. Normal GE junction. No rmal noncontrast spleen. Adrenal glands are normal. No obstructing renal or ureteral calculi. Fatty atrophy of the pancreas. Noncontrast pancreas appears normal. Sigmoid diverticulosis. No evidence of acute diverticulitis. No high-grade small or large [place] obstruction. No lymphadenopathy. Normal lumbar spine.Mild luminal narrowing in the transverse colon with circumferential mucosal thick ening. Recommend further evaluation with colonoscopy to exclude neoplasm CT/CT abdomen pelvis wo con [id number] IMPRESSION: 1. Sigmoid diverticulosis. No evidence of acute diverticulitis 2. Stable aortic endograft with biiliac extension. 3. No evidence of high-grade small or large bowel obstruction. 4. Mild luminal narrowing in the transverse colon with circumferential mucosal thickening. Recommend further evaluation with colonoscopy to exclude neoplasm 5. Prior cholecystectomy and hysterectomy. 6. Cardiomegaly.
--- NOTE | 2022-06-27 13:07 | ECG_ITS ---
[facility] Test Date: 2022-06-27 Pat Name: Paloma Slater Department: Room: Gender: Female Election Judge: : 1940 Requested By: Dilshad Couch Order Number: [id number] Latisha MD: Jonnie Reese M.D. Measurements Intervals [place] Rate: 77 P: 66 OK: 231 QRS: -6 QRSD: 154 T: 114 QT: 436 QTc: 494 Interpretive Statements SINUS RHYTHM WITH FIRST DEGREE AV BLOCK WITH OCCASIONAL SUPRAVENTRICULAR PREMATURE COMPLEXES LEFT BUNDLE BRANCH BLOCK [120+ ms QRS DURATION, 80+ ms Q/S IN V1/V2, 85+ ms R IN I/aVL/V5/V6] Compared to ECG 04/13/2022 12:46:09 First degree AV block now present Ectopic atrial rhythm no longer present Left-axis deviation no longer present Electronically Signed On 06-27-2022 14:25:10 CDT by Jonnie Reese M.D. [id number]
[2022-06-27] MEDS: sodium chloride 0.9% 1,000 ML 999 ML IV (13:27)
[2022-06-27] MEDS: ondansetron 2 mg/ML SDV 2 mL 4 MG IVP (13:27)
[2022-06-27 13:30] LABS: Basophils % 0.2 %; Eosinophils # 0.2 10^3/uL (0.0-0.8); Eosinophils % 1.5 %; Hematocrit 34.3 % (37.0-47.0); Hemoglobin 11.1 g/dL (11.5-15.3); Lymphocytes # 1.2 10^3/uL (0.8-4.8); Lymphocytes % 10.2 %; Mean Corpuscular HGB Conc 32.4 g/dL (30.0-36.0); Mean Corpuscular Hemoglobin 28.6 pg (28.0-34.0); Mean Corpuscular Volume 88.4 fl (81-99); Mean Platelet Volume 10.1 fL (7.4-10.4); Monocytes # 1.2 10^3/uL (0.2-0.9); Monocytes % 10.6 %; Neutrophils # 8.99 10^3/uL (1.8-7.7); Neutrophils % 77.3 %; Nucleated Red Blood Cells % 0 %; Platelet Count 376 10^3/cmm (130-400); Red Blood Count 3.88 10^6/uL (4.1-5.3); Red Cell Distribution Width 14.6 % (12.1-15.1); White Blood Count 11.6 10^3/uL (4.0-10.0)
[2022-06-27 14:01] LABS: Lactate (Lactic Acid level) 1.1 mmol/L (0.5-2.2)
[2022-06-27 14:13] LABS: Alanine Aminotransferase 7 U/L (0-33); Albumin Level 3.6 g/dL (3.5-5.2); Alkaline Phosphatase 131 IU/L (35-105); Anion Gap 12.8 (5-19); Aspartate Amino Transferase 10 U/L (0-32); Blood Urea Nitrogen 23 mg/dL (8-23); Calcium 8.9 mg/dL (8.5-10.5); Carbon Dioxide 30 mmol/L (22-29); Chloride 98 mmol/L (98-107); Globulin 2.9 g/dL (1.3-4.6); Glucose 96 mg/dL (65-115); Lipase 8 U/L (13-60); Magnesium 1.7 mg/dL (1.7-2.3); Osmolality Calculated 288 mOsm/kg (285-295); Potassium 3.8 mmol/L (3.5-5.1); Sodium 137 mmol/L (136-145); Total Bilirubin 0.6 mg/dL (0.15-1.2); Total Protein 6.5 g/dL (6.6-8.7)
[2022-06-27 16:31] LABS: Urine Appearance Hazy (CLEAR); Urine Color Yellow (Yellow)
[2022-06-27 16:32] LABS: Add Urine Culture? Yes; Add Urine Microscopic? YES; Amorphous Sediment Urine 2+ /hpf; Bacteria Urine 2+ /hpf; Bilirubin Urine Neg (Negative); Blood Urine 3+ (Negative); Glucose Urine UA Norm (Normal); Ketones Urine Negative (Negative); Leukocyte Esterase Urine 2+ (Negative); Nitrate Urine Negative (Negative); Protein Urine Neg (Negative); RBC Urine 0-4 /hpf (0-2); Specific Gravity, Urine 1.005 (1.005-1.030); Squamous Epithelial Cell Urine 0-4 /hpf (0-5); Urobilinogen Urine Norm (Negative); WBC Urine 0-4 /hpf (0-5); pH Urine 5 (5-7)
--- NOTE | 2022-06-28 10:11 | DCPLANNER ---
Addendum entered by Fannie Alegria 07/19/22 14:57: Patient had a follow u appointment scheduled for 07.12.22 - appointment was rescheduled. Addendum entered by Fannie Alegria 07/04/22 14:04: Patient has a follow up appointment scheduled for Tuesday, July 12, 2022 at 1:[address] Nixon. Clinic will call patient with appointment information. Original Note: manager lvn had message to schedule a follow up appointment for patient with general surgery. manager lvn sent patients information to the front office staff at general surgery. Patients information will be printed and reviewed. Clinic will call patient with appointment information.
== END 2022-06-27 17:32 | disposition home or self-care (01) ==
PROVIDERS: Emergency Provider Emergency Medicine; PCP Family Medicine
DX: R11.2 Nausea with vomiting, unspecified (principal); R19.7 Diarrhea, unspecified; N39.0 Urinary tract infection, site not specified; E86.0 Dehydration; R93.3 Abnormal findings on diagnostic imaging of other parts of digestive tract; Z79.84 Long term (current) use of oral hypoglycemic drugs; Z79.02 Long term (current) use of antithrombotics/antiplatelets; Z79.82 Long term (current) use of aspirin; Z79.4 Long term (current) use of insulin; F17.210 Nicotine dependence, cigarettes, uncomplicated; I11.0 Hypertensive heart disease with heart failure; I50.9 Heart failure, unspecified; J44.9 Chronic obstructive pulmonary disease, unspecified; Z86.73 Personal history of transient ischemic attack (TIA), and cerebral infarction without residual deficits; E78.5 Hyperlipidemia, unspecified; E13.42 Other specified diabetes mellitus with diabetic polyneuropathy
CPT/HCPCS: 74176; 80053; 81001; 83605; 83690; 83735; 85025; 87040; 87077; 87086; 87186; 93005; 96361; 96374; 99285; J2405; J7030

== ENCOUNTER 2022-07-05 14:28 | Outpatient (CLI) | payer MEDICARE, SELFPAY ==
--- NOTE | 2022-07-05 14:40 | USCV_ITS ---
Paloma Slater Age: 81 Gender: F : 1940 Exam Date: 07/05/2022 14:58 Ordering Phys: Edna Schwartz MD ([email or web address]) Technologist: JOSE C [place] [facility] [place]: aorta duplex f/u graft done 5 years ago HISTORY: Diameter (cm) AP x Transverse x Length Velocity (cm/s) Waveform Prox Aorta: 1.93 x 2.48 x 60.80 Biphasic Mid Aorta: 2.23 x 2.31 x 51.50 Biphasic Distal Aorta: 2.22 x 2.42 x 43.80 Biphasic Right Iliac Prox: 1.05 x 1.04 x 149.20 Biphasic Left Iliac Prox: 1.12 x 1.10 x 118.40 Biphasic Stent Prox Landing x x Aneurysmal Sac Max 4.07 x x Lt Lat Sac Dim Rt Lat Sac Dim Stent Dist Landing x x Right Iliac Stent x x Left Iliac Stent x x Right Renal Art Left Renal Art FINDINGS: Aortic stent graft measuring 2.22 x 2.42 in the infrarenal aorta. Aneurysm sac was measuring 4.07 in the anteroposterior dimension Patent iliac grafts bilaterally Near/near normal Doppler flow velocities CONCLUSIONS 1. Patent aortoiliac stent graft. 2. Distal abdominal aortic aneurysm measuring 4.07 cm in the anterior posterior diameter. 3. No evidence of stenosis in the proximal common iliac arteries bilaterally. Compared to the study from 11/04/2017, presence of stent graft with shrinking in the size of the aneurysm sac. Dr Jazmín Aguiar MD [facility] (Electronically Signed) Final Date: 05 July 2022 19:38 S
== END 2022-07-05 14:29 | disposition home or self-care (01) ==
LOC: RAD 14:32
PROVIDERS: PCP Family Medicine; Visit Provider Internal Medicine Cardiovascular Disease
DX: I71.4 Abdominal aortic aneurysm, without rupture (principal); Z98.890 Other specified postprocedural states
CPT/HCPCS: 93978

== ENCOUNTER 2022-07-11 13:08 | Outpatient (CLI) | payer MEDICARE, SELFPAY ==
--- NOTE | 2022-07-11 13:30 | XR_ITS ---
WS: [id number] SCREENING DEXA SCAN Oculo Therapy CLINICAL INFORMATION: compare to previous COMPARISON: 2017 FINDINGS: The L1-L4 bone mineral density measures 1.25. This corresponds to a T score score of 0.7 and Z score of 2.1. Left femoral neck bone mineral density measures 0.810 g/cm2. This corresponds to a T score of -1.6 an d Z score of 0.1. Right femoral neck bone mineral density measures 0.823 g/cm2. This corresponds to a T score -1.5of an d Z score of 0.2. Mean femoral neck bone mineral density measures 0.817 g/cm2. This corresponds to a T score of -1.5 an d Z score of 0.1. XR/XR DEXA axial skeleton* [id number] IMPRESSION: Normal bone mineralization in the lumbar spine, although likely spuriously elev ated due to overlying endograft and endplate sclerosis. Osteopenia in the femor al necks. Patient's FRAX calculated 10 year probability for major osteoporotic fracture i s 52.4 % and osteoporotic hip fracture is 42.9%. Bone mineral density lumbar spine has increased +27.0% since 2017. Bone mineral density in the femoral necks has decreased -6.4% since 2017.
== END 2022-07-11 13:09 | disposition home or self-care (01) ==
PROVIDERS: PCP Family Medicine; Visit Provider Internal Medicine Medical Oncology
DX: C50.411 Malignant neoplasm of upper-outer quadrant of right female breast (principal); M85.852 Other specified disorders of bone density and structure, left thigh; M85.851 Other specified disorders of bone density and structure, right thigh
CPT/HCPCS: 77080

== ENCOUNTER → 2022-07-15 14:02 | Outpatient (BNVA) | payer MEDICARE, SELFPAY | PROVIDERS: PCP Family Medicine; Visit Provider Internal Medicine Medical Oncology | DX: C50.812 Malignant neoplasm of overlapping sites of left female breast (principal); Z17.0 Estrogen receptor positive status [ER+]; Z90.12 Acquired absence of left breast and nipple; M25.511 Pain in right shoulder; Z79.891 Long term (current) use of opiate analgesic; Z79.818 Long term (current) use of other agents affecting estrogen receptors and estrogen levels; Z79.899 Other long term (current) drug therapy | CPT/HCPCS: 99214 ==

== ENCOUNTER 2022-07-16 14:27 | Oncology outpatient (recurring) (ONCR) | payer MEDICARE, SELFPAY ==
--- NOTE | 2022-07-16 14:32 | XRR_ITS ---
PROCEDURE INFORMATION: Exam: XR Right Humerus Exam date and time: 07/16/2022 2:42 PM Age: 81 years old Clinical indication: Upper arm and shoulder; Patient HX: Iron deficient, pain in right shoulder and upper arm, no injuries reported; Additional info: Pain right shoulder and right arm TECHNIQUE: Imaging protocol: Radiologic exam of the Right humerus. Views: 2 or more views. COMPARISON: CR XR chest 1V portable [id number] 04/13/2022 1:14 PM FINDINGS: Bones/joints: Probable osteopenia. No acute fracture dislocation or obvious suspicious bony lesion. Chronic productive changes in the shoulder region as described on shoulder exam report. Soft tissues: Normal. Other findings: Two views submitted. XR/[place] [id number] IMPRESSION: No acute findings.
--- NOTE | 2022-07-16 14:32 | XRR_ITS ---
PROCEDURE INFORMATION: Exam: XR Right Shoulder Exam date and time: 07/16/2022 2:42 PM Age: 81 years old Clinical indication: Upper arm and shoulder; Patient HX: Iron deficient, pain in right shoulder and upper arm, no injuries reported; Additional info: Pain right shoulder and right arm TECHNIQUE: Imaging protocol: Radiologic exam of the Right shoulder. Views: 2 or more views. COMPARISON: CR XR chest 1V portable [id number] 04/13/2022 1:14 PM FINDINGS: Bones/joints: Chronic hypertrophic changes at the glenohumeral joint, AC joint and acromion. No acute fracture or anterior dislocation. Posterior dislocation is difficult to exclude with these projections. Additional exam may be obtained if clinically indicated. Soft tissues: Normal. Other findings: Two views submitted. XR/XR shoulder RT min 2V* [id number] IMPRESSION: No acute fracture. See discussion above.
== END 2022-07-24 23:59 | disposition home or self-care (01) ==
PROVIDERS: PCP Family Medicine; Visit Provider Internal Medicine Medical Oncology
DX: C50.812 Malignant neoplasm of overlapping sites of left female breast (principal)
CPT/HCPCS: 73030; 73060; 99214

== ENCOUNTER → 2022-09-11 14:28 | Outpatient (BNVA) | payer MEDICARE, SELFPAY | PROVIDERS: PCP Family Medicine; Visit Provider Nurse Practitioner Family | DX: M19.011 Primary osteoarthritis, right shoulder (principal) | CPT/HCPCS: 99214 ==

== ENCOUNTER → 2022-09-26 14:20 | Outpatient (BNVA) | payer MEDICARE, SELFPAY | PROVIDERS: PCP Family Medicine; Visit Provider Internal Medicine Cardiovascular Disease | DX: I13.0 Hypertensive heart and chronic kidney disease with heart failure and stage 1 through stage 4 chronic kidney disease, or unspecified chronic kidney disease (principal); E13.22 Other specified diabetes mellitus with diabetic chronic kidney disease; N18.9 Chronic kidney disease, unspecified; Z79.4 Long term (current) use of insulin; I50.32 Chronic diastolic (congestive) heart failure; I65.23 Occlusion and stenosis of bilateral carotid arteries; I71.23 Aneurysm of the descending thoracic aorta, without rupture; F17.219 Nicotine dependence, cigarettes, with unspecified nicotine-induced disorders | CPT/HCPCS: 99214 ==

== ENCOUNTER 2022-10-11 14:35 | Outpatient (CLI) | payer MEDICARE, SELFPAY ==
--- NOTE | 2022-10-11 15:00 | CTR_ITS ---
PROCEDURE INFORMATION: Exam: CT Right Upper Extremity Without Contrast, Shoulder Exam date and time: 10/11/2022 2:53 PM Age: 82 years old Clinical indication: Right shoulder pain. TECHNIQUE: Imaging protocol: Computed tomography of the Right upper extremity without contrast. Exam focused on the shoulder. Radiation optimization: All CT scans at this facility use at least one of these dose optimization techniques: automated exposure control; mA and/or kV adjustment per patient size (includes targeted exams where dose is matched to clinical indication); or iterative reconstruction. COMPARISON: CR XR shoulder RT min 2V* [id number] 07/16/2022 2:42 PM RADIATION DOSE METRICS: Total DLP (mGy-cm): 979.09 FINDINGS: Bones/joints: No fracture, dislocation or subluxation. No periosteal reaction or supsicious bone lesion. There is mild primary osteoarthritis at the glenohumeral and acromioclavicular joints. No large full-thickness rotator cuff tear is identified. Soft tissues: No significant subcutaneous soft tissue swelling. Probable tenosynovitis of the long head of biceps tendon. No significant soft tissue swelling. Vasculature: There is aneurysmal dilatation of the ascending thoracic aorta measuring 4.1 x 4.2 cm. There is no gross evidence of rupture. Lymph nodes: A subpectoral lymph node on the right measures 1.0 x 1.0 cm. A right axillary lymph node measures 1.1 x 2.0 cm. Thoracic findings: Solid pulmonary nodule in the right upper lobe measuring 3.4 mm (image 74). Solid pulmonary nodule in the right middle lobe measuring 4.9 mm (image 95). The heart appears enlarged. Coronary arterial calcifications are noted. There is scarring in the right apex. CT/CT shoulder RT wo con* [id number] IMPRESSION: 1. 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 2. Probable tenosynovitis of the long head of biceps tendon. 3. Aneurysmal dilatation of the ascending thoracic aorta measuring 4.1 x 4.2 cm. There is no gross evidence of rupture. 4. Cardiomegaly with coronary artery disease. 5. Right subpectoral and axillary lymphadenopathy. 6. Solid pulmonary nodules measuring up to 4.9 mm. As per Fleischner Society 2017 guidelines for follow-up and management of pulmonary nodules: For patients at low risk (minimal or absent history of smoking and of other known risk factors), no routine follow-up. For patient at high risk (history of smoking or of other known risk factors), recommend optional CT at 12 months.
== END 2022-10-11 14:36 | disposition home or self-care (01) ==
PROVIDERS: PCP Family Medicine; Visit Provider Nurse Practitioner Family
DX: M19.011 Primary osteoarthritis, right shoulder (principal); I51.7 Cardiomegaly; I25.10 Atherosclerotic heart disease of native coronary artery without angina pectoris; R91.8 Other nonspecific abnormal finding of lung field
CPT/HCPCS: 73200

== ENCOUNTER 2022-12-07 09:03 | Emergency (ER) | payer MEDICARE, SELFPAY ==
[2022-12-07] VITALS (9 sets, daily range): BP systolic 118–165; BP diastolic 70–120; PULSE 80–112; RESP 18–30; TEMP 36.2; O2SAT 92–100; BMI 31.8
--- NOTE | 2022-12-07 09:09 | XRR_ITS ---
PROCEDURE INFORMATION: Exam: XR Chest Exam date and time: 12/07/2022 9:17 AM Age: 82 years old Clinical indication: Shortness of breath; Additional info: SOB TECHNIQUE: Imaging protocol: Radiologic exam of the chest. Views: 2 views. COMPARISON: CR XR chest 1V portable [id number] 04/13/2022 1:14 PM FINDINGS: Lungs: There is bilateral central bronchial wall thickening and haziness. There is septal line formation at least on the right. No focal peripheral lung consolidation, air bronchogram formation, or silhouette sign. Pleural spaces: No pleural effusion. No pneumothorax. Heart/Mediastinum: The cardiac silhouette is enlarged. There is widening of the mediastinum, perhaps due to mediastinal lipomatosis given the patient's body habitus. Vasculature: The aorta is atherosclerotic. Bones/joints: There are multilevel bridging osteophytes in the spine. XR/XR chest 2V* [id number] IMPRESSION: Interstitial/bronchial edema, potentially cardiogenic.
--- NOTE | 2022-12-07 09:15 | ED_ITS ---
HPI - SOB/Dyspnea General: Chief Complaint: Shortness of Breath/Dyspnea Stated Complaint: SOB Time Seen by Provider: 12/07/22 09:09 History of Present Illness: HPI Narrative: 82-year-old female presents with shortness of breath. Patient reports that she awoke with it this morning. Patient has a history of COPD and fluid overload. Patient reports that she feels like she has some increased fluid. She reports that just prior to EMS arriving she took 2 Lasix tablets but has not peed yet. Patient was given a DuoNeb in route by EMS which she reports helped. EMS reports that her oxygen was in the 80s she denies increased cough. No reports of fever or chills. [facility] ED PFSH: Medical History AAA (abdominal aortic aneurysm) Status post stent graft repair Anemia Atopic dermatitis B12 deficiency Breast CA Carotid artery disease CHF (congestive heart failure) Diastolic/Systolic EF 37% 12/14 Chronic kidney disease Chronic pain COPD (chronic obstructive pulmonary disease) CVA (cerebral vascular accident) Descending thoracic aortic 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, 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 Dyslipidemia History of COVID-12 Aug 2021 History of nonmelanoma skin cancer HTN (hypertension) Nicotine dependence, cigarettes, with unspecified nicotine-induced disorders Obesity Osteoporosis Pneumonia Renal artery stenosis Seasonal allergies Surgical History History of aortic aneurysm repair History of stent insertion of renal artery S/P cholecystectomy S/P hysterectomy S/P mastectomy (08/2009) Right modified radical mastectomy S/P tonsillectomy Family History Other Stroke Social History Smoking and tobacco status: current every day smoker cigarettes Packs smoked per day: 0.25 Alcohol intake: never Course Vital Signs: Vital signs: Vital Signs Temperature 97.1 F L 12/07/22 09:04 Pulse Rate 96 12/07/22 09:35 Respiratory Rate 20 H 12/07/22 09:32 Blood Pressure 143/94 12/07/22 09:28 Pulse Oximetry 100 12/07/22 09:35 Oxygen Delivery Me thod 12/07/22 09:32 Oxygen Flow Rate 2 12/07/22 09:32 MDM - SOB/Dyspnea Medical Decision Making Reviewed patient's labs with a slight elevation of her white count, x-ray that shows some mild edema. Patient's troponin and BNP are at her baseline. Patient reports she is feeling a lot better. She thinks that a lot of her issue may have been anxiety related. Patient has home oxygen when she needs it and uses it occasionally. Patient's oxygen was weaned and her O2 remained in the low to mid 90s. Patient is requesting discharge home. She is stable and will be discharged as requested. She should follow with her primary care provider as needed. Lab Data 12/07/22 09:00 12/07/22 09:00 Labs/Radiology: Radiology Impressions Chest X-Ray 12/07/22 09:09 IMPRESSION: Interstitial/bronchial edema, potentially cardiogenic. Laboratory Results WBC 13.3 10^3/uL (4.0-10.0) H 12/07/22 09:00 RBC 4.22 10^6/uL (4.1-5.3) 12/07/22 09:00 Hgb 12.3 g/dL (11.5-15.3) 12/07/22 09:00 Hct 38.6 % (37.0-47.0) 12/07/22 09:00 MCV 91.5 fl (81-99) 12/07/22 09:00 MCH 29.1 pg (28.0-34.0) 12/07/22 09:00 MCHC 31.9 g/dL (30.0-36.0) 12/07/22 09:00 RDW 13.8 % (12.1-15.1) 12/07/22 09:00 Plt Count 437 10^3/cmm (130-400) H 12/07/22 09:00 MPV 10.3 fL (7.4-10.4) 12/07/22 09:00 Neut % (Auto) 67.5 % 12/07/22 09:00 Lymph % (Auto) 23.0 % 12/07/22 09:00 Leon % (Auto) 7.3 % 12/07/22 09:00 Eos % (Auto) 1.7 % 12/07/22 09:00 Baso % (Auto) 0.3 % 12/07/22 09:00 Neut # (Auto) 8.93 10^3/uL (1.8-7.7) H 12/07/22 09:00 Lymph # (Auto) 3.1 10^3/uL (0.8-4.8) 12/07/22 09:00 Leon # (Auto) 1.0 10^3/uL (0.2-0.9) H 12/07/22 09:00 Eos # (Auto) 0.2 10^3/uL (0.0-0.8) 12/07/22 09:00 Baso # (Auto) 0.0 10^3/uL (0.0-0.1) 12/07/22 09:00 Nucleated RBC % (auto) 0 % 12/07/22 09:00 Nucleated RBCs # 0.0 /100WBC 12/07/22 09:00 Specimen Type Arterial 12/07/22 09:11 Sample Site Radial, left 12/07/22 09:11 ABG pH 7.34 (7.35-7.45) L 12/07/22 09:11 ABG pCO2 54.2 mmHg (35-45) H 12/07/22 09:11 ABG pO2 83.4 mmHg (80.0-100.0) 12/07/22 09:11 ABG HCO3 28.9 mmol/L (22-26) H 12/07/22 09:11 ABG Base Excess 2.2 mmol/L (-2.0-2.0) H 12/07/22 09:11 Carlos Alberto Test Pos 12/07/22 09:11 Hematocrit 35.4 % (37-47) L 12/07/22 09:11 O2 Delivery Device Nc 12/07/22 09:11 O2 Liters/Min 3.0 % 12/07/22 09:11 FiO2 3.0 % 12/07/22 09:11 Manufacturing Test Technician ID [email or web address] 12/07/22 09:11 Sodium 138 mmol/L (136-145) 12/07/22 09:00 Potassium 4.8 mmol/L (3.5-5.1) 12/07/22 09:00 Chloride 99 mmol/L (98-107) 12/07/22 09:00 Carbon Dioxide 28 mmol/L (22-29) 12/07/22 09:00 Anion Gap 15.8 (5-19) 12/07/22 09:00 BUN 25 mg/dL (8-23) H 12/07/22 09:00 Creatinine 1.2 mg/dL (0.5-0.9) H 12/07/22 09:00 GFR Calculation Not Reportable 12/07/22 09:00 Glucose 186 mg/dL (65-115) H 12/07/22 09:00 Calculated Osmolality 295 mOsm/kg (285-295) 12/07/22 09:00 Calcium 8.6 mg/dL (8.5-10.5) 12/07/22 09:00 Magnesium 2.3 mg/dL (1.7-2.3) 12/07/22 09:00 Total Bilirubin 0.3 mg/dL (0.15-1.2) 12/07/22 09:00 AST 13 U/L (0-32) 12/07/22 09:00 ALT 14 U/L (0-33) 12/07/22 09:00 Alkaline Phosphatase 144 U/L (35-105) H 12/07/22 09:00 Troponin T Baseline 27 ng/L (0-10) H 12/07/22 09:00 NT-Pro-B Natriuret Pep 2336 pg/mL (0-450) H 12/07/22 09:00 Total Protein 6.6 g/dL (6.6-8.7) 12/07/22 09:00 Albumin 4.1 g/dL (3.5-5.2) 12/07/22 09:00 Globulin 2.5 g/dL (1.3-4.6) 12/07/22 09:00 Discharge Plan Discharge Patient Disposition: Home Clinical Impression: COPD (chronic obstructive pulmonary disease), Congestive heart failure Condition: Stable Prescriptions: No Action aspirin 81 mg tablet,delayed release (DR/EC) 81 mg PO DAILY mometasone 0.1 % solution 1 applic topical DAILY Qty: 60 3RF Rx Instructions: Apply a few drops to scalp daily as needed for itch. (DME) FreeStyle [place] 14 Day Sensor Kit See Rx Instructions .Route Qty: 2 11RF Rx Instructions: As directed (DME) FreeStyle [place] 14 Day [place] Misc See Rx Instructions .Route Qty: 1 0RF Rx Instructions: As directed clopidogrel 75 mg tablet 75 mg PO DAILY 90 Days Qty: 90 3RF Hold Instructions: Resume on 05/07/21. Until seen by primary care, recheck CBC (DME) blood-glucose meter Misc See Rx Instructions .Route Qty: 1 0RF Rx Instructions: As directed with testing strips (DME) Blood Glucose Test Strip See Rx Instructions .Route Qty: 50 0RF Rx Instructions: As directed with glucose machine. (DME) pen needle, diabetic [TechLITE Pen Needle] 32 gauge x 5/32 needle See Rx Instructions .Route Qty: 100 0RF Rx Instructions: As directed atorvastatin 80 mg tablet 80 mg PO BEDTIME Qty: 90 3RF glipizide 5 mg tablet 5 mg PO DAILY 90 Days Qty: 90 1RF famotidine 20 mg tablet See Rx Instructions .ROUTE .COMPLEX Qty: 60 3RF Dose Instruction: TAKE ONE TABLET BY MOUTH TWICE DAILY Rx Instructions: TAKE ONE TABLET BY MOUTH TWICE DAILY carvedilol 3.125 mg tablet 3.125 mg PO BID Qty: 180 1RF furosemide 20 mg tablet 20 mg PO DAILY Qty: 60 1RF loratadine 10 mg tablet 10 mg PO DAILY Qty: 30 2RF potassium chloride 10 mEq capsule, extended release 10 meq PO BID Qty: 270 0RF oxycodone 15 mg tablet 15 mg PO Q6H PRN (Reason: pain) 30 Days Qty: 120 0RF montelukast 10 mg tablet See Rx Instructions .ROUTE .COMPLEX Qty: 30 0RF Dose Instruction: TAKE ONE TABLET BY MOUTH EVERY DAY Rx Instructions: TAKE ONE TABLET BY MOUTH EVERY DAY lisinopril 2.5 mg tablet See Rx Instructions .ROUTE .COMPLEX Qty: 30 0RF Dose Instruction: TAKE ONE TABLET BY MOUTH EVERY DAY Rx Instructions: TAKE ONE TABLET BY MOUTH EVERY DAY Flonase Allergy Relief 50 mcg/actuation spray,suspension 2 spray intranasal DAILY PRN (Reason: Nasal Congestion) Rx Instructions: administer into each nostril Lantus Solostar U-100 Insulin 100 unit/mL (3 mL) insulin pen 14 unit SUBCUT BEDTIME ondansetron 4 mg tablet,disintegrating 4 mg PO Q8H PRN (Reason: nausea and vomiting) Qty: 15 0RF Discharge Orders: Discharge ED (Routine); Ordered 12/07/22 Ordered By: Maco Lindsey Referrals: Patti Irwin DO [Primary Care Provider] - Discharge Diet: Usual diet Discharge Activity: Resume usual activity Patient Instructions: Opioid Safety, Pain Management Activity Restrictions/Additional Instructions: Please continue your home medications as prescribed including her Lasix. Follow-up with your primary care provider Friday or Friday next week for recheck of your symptoms. Return to the ER as needed. Coding Level of Care Code ED Learning Support Aide for Betty Vela
--- NOTE | 2022-12-07 09:18 | PC.NURSE ---
PT PLACED ON CONTINUOUS NIBP, SPO2, AND CM
[2022-12-07 09:20] LABS: Basophils % 0.3 %; Eosinophils # 0.2 10^3/uL (0.0-0.8); Eosinophils % 1.7 %; Hematocrit 38.6 % (37.0-47.0); Hemoglobin 12.3 g/dL (11.5-15.3); Lymphocytes # 3.1 10^3/uL (0.8-4.8); Mean Corpuscular HGB Conc 31.9 g/dL (30.0-36.0); Mean Corpuscular Hemoglobin 29.1 pg (28.0-34.0); Mean Corpuscular Volume 91.5 fl (81-99); Mean Platelet Volume 10.3 fL (7.4-10.4); Monocytes % 7.3 %; Neutrophils # 8.93 10^3/uL (1.8-7.7); Neutrophils % 67.5 %; Nucleated Red Blood Cells % 0 %; Platelet Count 437 10^3/cmm (130-400); Red Blood Count 4.22 10^6/uL (4.1-5.3); Red Cell Distribution Width 13.8 % (12.1-15.1); White Blood Count 13.3 10^3/uL (4.0-10.0)
[2022-12-07 09:22] LABS: Blood Gas Allen Test Pos; Blood Gas Sample Site Radial, left; Blood Gas Sample Type Arterial; Oxygen Device NC
[2022-12-07 09:24] LABS: ABG PCO2 54.2 mmHg (35-45); ABG PH Result 7.34 (7.35-7.45); Arterial Blood Gas Hematocrit 35.4 % (37-47); Base Excess ABG 2.2 mmol/L (-2.0-2.0); HCO3 ABG 28.9 mmol/L (22-26); PO2 ABG 83.4 mmHg (80.0-100.0)
--- NOTE | 2022-12-07 09:29 | ECG_ITS ---
[facility] Test Date: 2022-12-07 Pat Name: Paloma Slater Department: Room: Gender: Female Outside Sales Representative: : 1940 Requested By: Maco Lindsey Order Number: [id number] Latisha MD: Jonnie Reese M.D. Measurements Intervals [place] Rate: 100 P: -88 VT: 144 QRS: -83 QRSD: 146 T: 72 QT: 385 QTc: 497 Interpretive Statements Sinus tachycardia with borderline first-degree AV block LEFT bundle branch block Compared to ECG 06/27/2022 13:07:17 No change Electronically Signed On 12-07-2022 14:26:41 FIXED WING AIRCRAFT FLIGHT ENGINEER by Jonnie Reese M.D. [id number]
[2022-12-07] MEDS: ipratropium-albuterol 3 mL Neb INHALATION (09:31)
[2022-12-07 09:43] LABS: Troponin(5th) Baseline 27 ng/L (0-10)
[2022-12-07 09:50] LABS: Alanine Aminotransferase 14 U/L (0-33); Albumin Level 4.1 g/dL (3.5-5.2); Alkaline Phosphatase 144 U/L (35-105); Anion Gap 15.8 (5-19); Aspartate Amino Transferase 13 U/L (0-32); Blood Urea Nitrogen 25 mg/dL (8-23); Calcium 8.6 mg/dL (8.5-10.5); Carbon Dioxide 28 mmol/L (22-29); Chloride 99 mmol/L (98-107); Globulin 2.5 g/dL (1.3-4.6); Glucose 186 mg/dL (65-115); Magnesium 2.3 mg/dL (1.7-2.3); NT Pro B Type Natriuretic Pept 2336 pg/mL (0-450); Osmolality Calculated 295 mOsm/kg (285-295); Potassium 4.8 mmol/L (3.5-5.1); Sodium 138 mmol/L (136-145); Total Bilirubin 0.3 mg/dL (0.15-1.2); Total Protein 6.6 g/dL (6.6-8.7)
[2022-12-07 11:08] LABS: Troponin 5 2HR 32.44 ng/L (0-10)
[2022-12-07 11:14] LABS: Troponin 5 2HR Delta 5.44 ABS# (0-10)
== END 2022-12-07 11:01 | disposition home or self-care (01) ==
PROVIDERS: Emergency Provider Student in an Organized Health Care Education/Training Program; PCP Family Medicine
DX: J44.9 Chronic obstructive pulmonary disease, unspecified (principal); Z79.82 Long term (current) use of aspirin; Z79.02 Long term (current) use of antithrombotics/antiplatelets; Z79.84 Long term (current) use of oral hypoglycemic drugs; Z79.4 Long term (current) use of insulin; Z85.3 Personal history of malignant neoplasm of breast; E11.22 Type 2 diabetes mellitus with diabetic chronic kidney disease; I13.0 Hypertensive heart and chronic kidney disease with heart failure and stage 1 through stage 4 chronic kidney disease, or unspecified chronic kidney disease; N18.9 Chronic kidney disease, unspecified; I50.9 Heart failure, unspecified; Z86.73 Personal history of transient ischemic attack (TIA), and cerebral infarction without residual deficits; E78.5 Hyperlipidemia, unspecified; F17.210 Nicotine dependence, cigarettes, uncomplicated
CPT/HCPCS: 36415; 36600; 71046; 80053; 82803; 83735; 83880; 84484; 85025; 93005; 94640; 99285

== ENCOUNTER 2022-12-13 23:46 | Emergency (ER) | payer MEDICARE, SELFPAY ==
[2022-12-13 23:52] VITALS: BP 182/98; PULSE 134; RESP 34; TEMP 36.6; O2SAT 92; BMI 31.8
--- NOTE | 2022-12-13 23:52 | XRR_ITS ---
PROCEDURE INFORMATION: Exam: XR Chest Exam date and time: 12/14/2022 12:10 AM Age: 82 years old Clinical indication: Shortness of breath; Additional info: SOB TECHNIQUE: Imaging protocol: Radiologic exam of the chest. Views: 1 view. COMPARISON: CR (CHEST, ) 07/12/2022 09:17 FINDINGS: Tubes, catheters and devices: Partially assessed AAA endograft. Lungs: Mild COPD. Diffuse interstitial lung scarring or chronic edema. No consolidation. No significant change. Pleural spaces: Unremarkable. No pleural effusion. No pneumothorax. Heart/Mediastinum: The heart is very large. Diffuse vascular calcification. Bones/joints: Unremarkable. XR/XR chest 1V portable [id number] IMPRESSION: Stable chest with large heart and COPD but no acute process.
--- NOTE | 2022-12-13 23:58 | ECG_ITS ---
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 Measurements Intervals [place] Rate: 126 P: -75 MA: 122 QRS: -31 QRSD: 145 T: 91 QT: 335 QTc: 486 Interpretive Statements SINUS TACHYCARDIA WITH OCCASIONAL VENTRICULAR PREMATURE COMPLEXES LEFT AXIS DEVIATION [QRS AXIS < -30] LEFT BUNDLE BRANCH BLOCK [120+ ms QRS DURATION, 80+ ms Q/S IN V1/V2, 85+ ms R IN I/aVL/V5/V6] Compared to ECG 12/07/2022 09:29:29 Ventricular premature complex(es) now present Left-axis deviation now present Electronically Signed On 12-17-2022 7:47:56 SYSTEMS LEAD by Jaxon Fernandes M.D. [email or web address]/[id number]
--- NOTE | 2022-12-13 23:58 | ED_ITS ---
HPI - SOB/Dyspnea General: Chief Complaint: Shortness of Breath/Dyspnea Stated Complaint: SOB Time Seen by Provider: 12/13/22 23:47 Source: EMS Mode of arrival: EMS Limitations: no limitations History of Present Illness: HPI Narrative: 82-year-old female who is here by EMS for shortness of breath she is a chronic smoker with a history of COPD she is on 3 L of oxygen baseline she is having worsening dyspnea tonight when EMS arrived they state that she was in the low 80s on her 3 L in distress they gave her breathing treatment she had some slight provement she states she still feels short of breath but does feel improved she does have wheezing and tachypnea here she denies any cough or fever. Associated symptoms: Deny abdominal pain, chest pain, fever(s), nausea or vomiting Review of Systems Const: Denies: fever(s), chills, body aches or change in appetite Eyes: Denies: blurry vision or eye discomfort ENMT: Denies: throat pain or dental pain Card: Denies: chest pain Resp: Reports: dyspnea, non-productive cough and wheezing GI: Denies: abdominal pain, nausea, vomiting or diarrhea : Denies: dysuria Musc: Denies: neck pain or back pain Skin/Breast: Denies: rash Neuro: Denies: headache(s) Psych: Denies: depression Leonardo/Lymph: Denies: easy bruising All/Imm: Denies: urticaria PFSH ED PFSH: Medical History AAA (abdominal aortic aneurysm) Status post stent graft repair Anemia Atopic dermatitis B12 deficiency Breast CA Carotid artery disease CHF (congestive heart failure) Diastolic/Systolic EF 37% 12/14 Chronic kidney disease Chronic pain COPD (chronic obstructive pulmonary disease) CVA (cerebral vascular accident) Descending thoracic aortic 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, 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 Dyslipidemia History of COVID-12 Aug 2021 History of nonmelanoma skin cancer HTN (hypertension) Nicotine dependence, cigarettes, with unspecified nicotine-induced disorders Obesity Osteoporosis Pneumonia Renal artery stenosis Seasonal allergies Surgical History History of aortic aneurysm repair History of stent insertion of renal artery S/P cholecystectomy S/P hysterectomy S/P mastectomy (08/2009) Right modified radical mastectomy S/P tonsillectomy Family History Other Stroke Social History Smoking and tobacco status: current every day smoker cigarettes Packs smoked per day: 0.25 Alcohol intake: never Physical Exam Const: COMMON NORMALS: patient oriented x3 GENERAL APPEARANCE: in distress and ill appearing HENMT: COMMON NORMALS: normocephalic and atraumatic HEAD & SCALP: normocephalic and atraumatic Eye: COMMON NORMALS: Equal, round and reactive pupils present and EOMs intact bilaterally PUPIL: Yes Equal, round and reactive pupils present Neck/C-Spine: COMMON NORMALS: full ROM and supple Chest: COMMONS NORMALS: normal inspection of the chest and normal palpation of entire chest wall Resp: EFFORT & INSPECTION: Yes tachypneic and Yes respiratory distress AUSCULTATION: wheezes Cardio: COMMON NORMALS: regular rhythm and No murmurs present (Cardio) RATE: tachycardic RHYTHM: regular rhythm GI: COMMON NORMALS: Normal to inspection, nondistended, normoactive bowel sounds present, Soft to palpation, non-tender and no masses PALPATION: Yes Soft to palpation Extremity: COMMON NORMALS: normal to inspection and full ROM Neuro: COMMON NORMALS: patient oriented x3, moves all extremities and no focal motor deficits Psych: COMMON NORMALS: mental status grossly normal, Normal thought process present and cooperative THOUGHT PROCESS: Normal thought process present Skin: COMMON NORMALS: no rashes or lesions noted and no wounds GENERAL SKIN EXAM: no rashes or lesions noted Course Vital Signs: Vital signs: Vital Signs Temperature 97.8 F 12/13/22 23:52 Pulse Rate 112 H 12/14/22 00:28 Respiratory Rate 32 H 12/14/22 00:28 Blood Pressure 155/78 12/14/22 00:28 Pulse Oximetry 94 12/14/22 00:28 Oxygen Delivery Me thod 12/14/22 00:28 Oxygen Flow Rate 4 12/14/22 00:28 MDM - SOB/Dyspnea Medical Decision Making Patient presents here with shortness of breath has COPD exacerbation she has improved after breathing treatments but still is in distress spoke to hospitalist will admit. Lab Data 12/13/22 23:57 12/13/22 23:57 Labs/Radiology: Radiology Impressions Chest X-Ray 12/13/22 23:52 IMPRESSION: Stable chest with large heart and COPD but no acute process. Laboratory Results WBC 13.8 10^3/uL (4.0-10.0) H 12/13/22 23:57 RBC 3.92 10^6/uL (4.1-5.3) L 12/13/22 23:57 Hgb 11.2 g/dL (11.5-15.3) L 12/13/22 23:57 Hct 35.9 % (37.0-47.0) L 12/13/22 23:57 MCV 91.6 fl (81-99) 12/13/22 23:57 MCH 28.6 pg (28.0-34.0) 12/13/22 23:57 MCHC 31.2 g/dL (30.0-36.0) 12/13/22 23:57 RDW 14.1 % (12.1-15.1) 12/13/22 23:57 Plt Count 397 10^3/cmm (130-400) 12/13/22 23:57 MPV 10.4 fL (7.4-10.4) 12/13/22 23:57 Neut % (Auto) 67.5 % 12/13/22 23:57 Lymph % (Auto) 21.2 % 12/13/22 23:57 [place] % (Auto) 7.4 % 12/13/22 23:57 Eos % (Auto) 3.4 % 12/13/22 23:57 Baso % (Auto) 0.1 % 12/13/22 23:57 Neut # (Auto) 9.29 10^3/uL (1.8-7.7) H 12/13/22 23:57 Lymph # (Auto) 2.9 10^3/uL (0.8-4.8) 12/13/22 23:57 [place] # (Auto) 1.0 10^3/uL (0.2-0.9) H 12/13/22 23:57 Eos # (Auto) 0.5 10^3/uL (0.0-0.8) 12/13/22 23:57 Baso # (Auto) 0.0 10^3/uL (0.0-0.1) 12/13/22 23:57 Nucleated RBC % (auto) 0 % 12/13/22 23:57 Nucleated RBCs # 0.0 /100WBC 12/13/22 23:57 Specimen Type Arterial 12/13/22 00:20 Sample Site Radial, right 12/13/22 00:20 ABG pH 7.30 (7.35-7.45) L 12/13/22 00:20 ABG pCO2 57.3 mmHg (35-45) H 12/13/22 00:20 ABG pO2 133.0 mmHg (80.0-100.0) H 12/13/22 00:20 ABG HCO3 27.9 mmol/L (22-26) H 12/13/22 00:20 ABG Base Excess 0.4 mmol/L (-2.0-2.0) 12/13/22 00:20 Carlos Alberto Test Pos 12/13/22 00:20 Hematocrit 37.8 % (37-47) 12/13/22 00:20 Hgb O2 Saturation 93.0 % (95-100) L 12/13/22 00:20 Carboxyhemoglobin 5.7 %THgb (0.4-20.1) 12/13/22 00:20 Methemoglobin 0.5 % (0.4-1.5) 12/13/22 00:20 Total Hemoglobin 12.3 g/dL (12-16) 12/13/22 00:20 O2 Delivery Device Nc 12/13/22 00:20 O2 Liters/Min 3.0 % 12/13/22 00:20 FiO2 3.0 % 12/13/22 00:20 Electronics System Mechanic ID Anonymous 12/13/22 00:20 Sodium 136 mmol/L (136-145) 12/13/22 23:57 Potassium 4.3 mmol/L (3.5-5.1) 12/13/22 23:57 Chloride 99 mmol/L (98-107) 12/13/22 23:57 Carbon Dioxide 26 mmol/L (22-29) 12/13/22 23:57 Anion Gap 15.3 (5-19) 12/13/22 23:57 BUN 20 mg/dL (8-23) 12/13/22 23:57 Creatinine 1.1 mg/dL (0.5-0.9) H 12/13/22 23:57 GFR Calculation Not Reportable 12/13/22 00:00 Glucose 190 mg/dL (65-115) H 12/13/22 23:57 Calculated Osmolality 290 mOsm/kg (285-295) 12/13/22 23:57 Calcium 8.4 mg/dL (8.5-10.5) L 12/13/22 23:57 Total Bilirubin 0.4 mg/dL (0.15-1.2) 12/13/22 23:57 AST 17 U/L (0-32) 12/13/22 23:57 ALT 16 U/L (0-33) 12/13/22 23:57 Alkaline Phosphatase 166 U/L (35-105) H 12/13/22 23:57 Troponin T Baseline 20 ng/L (0-10) H 12/13/22 23:51 NT-Pro-B Natriuret Pep 3035 pg/mL (0-450) H 12/13/22 23:57 Total Protein 7.1 g/dL (6.6-8.7) 12/13/22 23:57 Albumin 3.8 g/dL (3.5-5.2) 12/13/22 23:57 Globulin 3.3 g/dL (1.3-4.6) 12/13/22 23:57 Influenza Type A Ag negative (Negative) 12/14/22 00:07 Influenza Type B Ag negative (Negative) 12/14/22 00:07 SARS-CoV-2 Ag (Rapid) negative (Negative) 12/14/22 00:23 Discharge Plan Discharge Patient Disposition: Admitted As Inpatient Clinical Impression: Acute exacerbation of chronic obstructive airways disease Condition: Stable Coding Level of Care Code ED Hobbing Machine Operator for Betty Fwd Exam Comprehensive
[2022-12-14] VITALS: PULSE 121; RESP 22; O2SAT 98
[2022-12-14] MEDS: albuterol 2.5 mg/3 mL Neb INHALATION
[2022-12-14 00:04] VITALS: PULSE 117; RESP 22; O2SAT 98
[2022-12-14 00:16] LABS: Basophils % 0.1 %; Eosinophils # 0.5 10^3/uL (0.0-0.8); Eosinophils % 3.4 %; Hematocrit 35.9 % (37.0-47.0); Hemoglobin 11.2 g/dL (11.5-15.3); Lymphocytes # 2.9 10^3/uL (0.8-4.8); Lymphocytes % 21.2 %; Mean Corpuscular HGB Conc 31.2 g/dL (30.0-36.0); Mean Corpuscular Hemoglobin 28.6 pg (28.0-34.0); Mean Corpuscular Volume 91.6 fl (81-99); Mean Platelet Volume 10.4 fL (7.4-10.4); Monocytes % 7.4 %; Neutrophils # 9.29 10^3/uL (1.8-7.7); Neutrophils % 67.5 %; Nucleated Red Blood Cells % 0 %; Platelet Count 397 10^3/cmm (130-400); Red Blood Count 3.92 10^6/uL (4.1-5.3); Red Cell Distribution Width 14.1 % (12.1-15.1); White Blood Count 13.8 10^3/uL (4.0-10.0)
[2022-12-14 00:28] VITALS: BP 155/78; PULSE 112; RESP 32; O2SAT 94
[2022-12-14 00:30] LABS: Influenza A by IFA negative (Negative); Influenza B by IFA negative (Negative)
[2022-12-14 00:32] LABS: ABG PCO2 57.3 mmHg (35-45); Arterial Blood Gas Hematocrit 37.8 % (37-47); Base Excess ABG 0.4 mmol/L (-2.0-2.0); Blood Gas Allen Test Pos; Blood Gas Operator Identificat Anonymous; Blood Gas Sample Site Radial, right; Blood Gas Sample Type Arterial; Carboxyhemoglobin 5.7 %THgb (0.4-20.1); HCO3 ABG 27.9 mmol/L (22-26); Methemoglobin 0.5 % (0.4-1.5); Oxygen Device NC; Total Hemoglobin 12.3 g/dL (12-16)
[2022-12-14 00:37] LABS: Alanine Aminotransferase 16 U/L (0-33); Albumin Level 3.8 g/dL (3.5-5.2); Alkaline Phosphatase 166 U/L (35-105); Blood Urea Nitrogen 20 mg/dL (8-23); Calcium 8.4 mg/dL (8.5-10.5); Carbon Dioxide 26 mmol/L (22-29); Chloride 99 mmol/L (98-107); Globulin 3.3 g/dL (1.3-4.6); Glucose 190 mg/dL (65-115); NT Pro B Type Natriuretic Pept 3035 pg/mL (0-450); Osmolality Calculated 290 mOsm/kg (285-295); Sodium 136 mmol/L (136-145); Total Bilirubin 0.4 mg/dL (0.15-1.2); Total Protein 7.1 g/dL (6.6-8.7)
[2022-12-14 00:38] LABS: Anion Gap 15.3 (5-19); Potassium 4.3 mmol/L (3.5-5.1)
[2022-12-14 00:39] LABS: Aspartate Amino Transferase 17 U/L (0-32)
[2022-12-14 00:52] LABS: SARS Covid-2 Antigen negative (Negative)
[2022-12-14 01:33] LABS: Troponin(5th) Baseline 20 ng/L (0-10)
[2022-12-14] MEDS: FUROsemide 10 mg/mL SDV 4mL 40 MG IVP (01:39)
[2022-12-14 01:54] VITALS: BP 149/69; PULSE 97; RESP 30; O2SAT 97
== END 2022-12-14 01:56 | disposition left against medical advice (07) ==
PROVIDERS: Emergency Provider Emergency Medicine; PCP Family Medicine
DX: J44.1 Chronic obstructive pulmonary disease with (acute) exacerbation (principal); Z20.822 Contact with and (suspected) exposure to COVID-19; F17.210 Nicotine dependence, cigarettes, uncomplicated; Z85.3 Personal history of malignant neoplasm of breast; I13.0 Hypertensive heart and chronic kidney disease with heart failure and stage 1 through stage 4 chronic kidney disease, or unspecified chronic kidney disease; E11.22 Type 2 diabetes mellitus with diabetic chronic kidney disease; N18.9 Chronic kidney disease, unspecified; I50.9 Heart failure, unspecified; E78.5 Hyperlipidemia, unspecified
CPT/HCPCS: 36600; 71045; 80053; 82805; 83880; 84484; 85025; 87426; 87804; 93005; 94640; 96374; 96375; 99285; J1940; J2930; J7613

== ENCOUNTER 2023-01-05 21:07 | Emergency (ER) | payer MEDICARE, SELFPAY ==
[2023-01-05 21:20] VITALS: BP 171/112; PULSE 140; RESP 28; TEMP 36.2; O2SAT 84
--- NOTE | 2023-01-05 21:27 | ECG_ITS ---
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 Measurements Intervals [place] Rate: 100 P: -53 [place]: 109 QRS: -41 QRSD: 143 T: 72 QT: 383 QTc: 495 Interpretive Statements SINUS TACHYCARDIA WITH SHORT [place] INTERVAL WITH OCCASIONAL SUPRAVENTRICULAR PREMATURE COMPLEXES LEFT AXIS DEVIATION [QRS AXIS < -30] INTRAVENTRICULAR CONDUCTION DELAY [130+ ms QRS DURATION] Compared to ECG 12/13/2022 23:58:10 Short [place] interval now present Intraventricular conduction delay now present Ventricular premature complex(es) no longer present Left bundle-branch block no longer present Electronically Signed On 01-06-2023 8:52:22 LABORER SYRUP MACHINE by Jaxon Fernandes M.D. [id number]
--- NOTE | 2023-01-05 21:28 | XRR_ITS ---
PROCEDURE INFORMATION: Exam: XR Chest Exam date and time: 01/05/2023 10:23 PM Age: 82 years old Clinical indication: Shortness of breath; Additional info: SOB TECHNIQUE: Imaging protocol: Radiologic exam of the chest. Views: 1 view. COMPARISON: CR (CHEST, ) 12/14/2022 12:10 AM FINDINGS: Lungs: Moderate COPD with diffuse lung scarring. Lung base atelectasis or scarring. Pleural spaces: Minute effusions possible. No pneumothorax. Heart/Mediastinum: The heart is large. Vasculature: Advanced diffuse vascular calcification noted. Partially assessed AAA endograft stent. Bones/joints: Unremarkable. XR/XR chest 1V portable [id number] IMPRESSION: Stable chest with numerous chronic findings similar to about 3 weeks ago.
[2023-01-05] MEDS: ipratropium-albuterol 3 mL Neb INHALATION (21:40)
[2023-01-05 21:42] VITALS: PULSE 112; RESP 33; O2SAT 97
--- NOTE | 2023-01-05 21:49 | ED_ITS ---
HPI - SOB/Dyspnea General: Chief Complaint: Shortness of Breath/Dyspnea Stated Complaint: SOB Time Seen by Provider: 01/05/23 21:20 Source: patient and family History of Present Illness: HPI Narrative: 82-year-old female who was at her baseline health status when she woke this morning. Evidently this evening, she got in an argument with a niece. This upset her. She began to get short of breath and started wheezing. She has a history of COPD. She uses oxygen at times at home. Her oxygen saturation at home was low, despite respiratory distress, so she came to the hospital. She used a breathing treatment at home without any improvement. She denies fever. She denies increased cough recently. She denies swelling to the lower extremities. No chest pain. MD elicited complaint: shortness of breath Pertinent past history: COPD Onset (ago): hour(s) Context: anxiety Timing: constant and improved Severity: moderate Exacerbating factors: lying flat, exertion, coughing and stress Relieving factors: oxygen and bronchodilators Known history of: COPD Associated symptoms: Reports chest congestion; Deny abdominal pain, chest pain, cough, dizziness, fever(s), palpitations, rash or vomiting Treatment prior to arrival: oxygen and bronchodilator Review of Systems Const: Denies: fever(s) ENMT: Denies: throat pain Card: Denies: chest pain or palpitations Resp: Reports: dyspnea, wheezing and chest congestion; Denies: productive cough or non-productive cough GI: Denies: abdominal pain or vomiting Musc: Denies: neck pain or back pain Skin/Breast: Denies: rash Neuro: Denies: dizziness PFSH ED PFSH: Medical History AAA (abdominal aortic aneurysm) Status post stent graft repair Anemia Atopic dermatitis B12 deficiency Breast CA Carotid artery disease CHF (congestive heart failure) Diastolic/Systolic EF 37% 12/14 Chronic kidney disease Chronic pain COPD (chronic obstructive pulmonary disease) CVA (cerebral vascular accident) Descending thoracic aortic 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, 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 Dyslipidemia History of COVID-12 Aug 2021 History of nonmelanoma skin cancer HTN (hypertension) Nicotine dependence, cigarettes, with unspecified nicotine-induced disorders Obesity Osteoporosis Pneumonia Renal artery stenosis Seasonal allergies Surgical History History of aortic aneurysm repair History of stent insertion of renal artery History of total mastectomy of left breast 04/[address] Vo at [place], [place] S/P cholecystectomy S/P hysterectomy S/P mastectomy (08/2009) Right modified radical mastectomy S/P tonsillectomy Family History Other Stroke Social History Smoking and tobacco status: current every day smoker cigarettes Packs smoked per day: 0.25 Alcohol intake: never Physical Exam Const: GENERAL APPEARANCE: cooperative and ill appearing (Mildly) NUTRITIONAL APPEARANCE: overweight HENMT: COMMON NORMALS: normocephalic, atraumatic and Normal external nose present HEAD & SCALP: normocephalic and atraumatic FACE & SINUS: normal facial exam and face symmetric NOSE: Normal external nose present Eye: COMMON NORMALS: Equal, round and reactive pupils present and EOMs intact bilaterally PUPIL: Yes Equal, round and reactive pupils present Neck/C-Spine: GENERAL: Yes trachea midline Chest: CHEST: Yes Symmetrical chest wall rise Resp: EFFORT & INSPECTION: Yes tachypneic and Yes labored AUSCULTATION: wheezes Cardio: COMMON NORMALS: regular rhythm RATE: tachycardic RHYTHM: regular rhythm GI: COMMON NORMALS: Normal to inspection, nondistended, normoactive bowel sounds present and Soft to palpation PALPATION: Yes Soft to palpation Extremity: GENERAL: Yes edema (Minimal) Neuro: MOHSEN COMA SCALE: document GCS findings [place] coma scale eye opening: Spontaneous [place] coma scale verbal response: Orientated [place] coma scale motor response: Obey commands Mohsen coma scale total score: 15 Course Vital Signs: Vital signs: Vital Signs Temperature 97.1 F L 01/05/23 21:20 Pulse Rate 84 01/05/23 23:46 Respiratory Rate 20 H 01/05/23 23:46 Blood Pressure 158/88 01/05/23 23:46 Pulse Oximetry 97 01/05/23 23:46 Oxygen Delivery Me thod 01/05/23 22:00 Oxygen Flow Rate 5 01/05/23 22:00 MDM - SOB/Dyspnea Medical Decision Making Patient's respiratory status has improved significantly. She is now on 2 L satting 95%. She is no longer tachypneic. Hemoglobin is 11.3. White blood cell count is 9.7. Sodium is 135 creatinine 1.2. BNP is elevated at 3500.Chest x-ray is stable, with no acute findings, however. With improvement in her respiratory status, she will be allowed home. We do not believe that her home oxygen is working properly. We will attempt to get her set up for home oxygen. Lab Data 01/05/23 21:40 01/05/23 21:40 Labs/Radiology: Radiology Impressions Chest X-Ray 01/05/23 21:28 IMPRESSION: Stable chest with numerous chronic findings similar to about 3 weeks ago. Laboratory Results WBC 9.7 10^3/uL (4.0-10.0) 01/05/23 21:40 RBC 3.99 10^6/uL (4.1-5.3) L 01/05/23 21:40 Hgb 11.3 g/dL (11.5-15.3) L 01/05/23 21:40 Hct 36.4 % (37.0-47.0) L 01/05/23 21:40 MCV 91.2 fl (81-99) 01/05/23 21:40 MCH 28.3 pg (28.0-34.0) 01/05/23 21:40 MCHC 31.0 g/dL (30.0-36.0) 01/05/23 21:40 RDW 13.3 % (12.1-15.1) 01/05/23 21:40 Plt Count 516 10^3/cmm (130-400) H 01/05/23 21:40 MPV 9.6 fL (7.4-10.4) 01/05/23 21:40 Neut % (Auto) 69.5 % 01/05/23 21:40 Lymph % (Auto) 20.5 % 01/05/23 21:40 [place] % (Auto) 5.8 % 01/05/23 21:40 Eos % (Auto) 3.8 % 01/05/23 21:40 Baso % (Auto) 0.1 % 01/05/23 21:40 Neut # (Auto) 6.73 10^3/uL (1.8-7.7) 01/05/23 21:40 Lymph # (Auto) 2.0 10^3/uL (0.8-4.8) 01/05/23 21:40 [place] # (Auto) 0.6 10^3/uL (0.2-0.9) 01/05/23 21:40 Eos # (Auto) 0.4 10^3/uL (0.0-0.8) 01/05/23 21:40 Baso # (Auto) 0.0 10^3/uL (0.0-0.1) 01/05/23 21:40 Nucleated RBC % (auto) 0 % 01/05/23 21:40 Nucleated RBCs # 0.0 /100WBC 01/05/23 21:40 Sodium 135 mmol/L (136-145) L 01/05/23 21:40 Potassium 4.4 mmol/L (3.5-5.1) 01/05/23 21:40 Chloride 96 mmol/L (98-107) L 01/05/23 21:40 Carbon Dioxide 27 mmol/L (22-29) 01/05/23 21:40 Anion Gap 16.4 (5-19) 01/05/23 21:40 BUN 13 mg/dL (8-23) 01/05/23 21:40 Creatinine 1.2 mg/dL (0.5-0.9) H 01/05/23 21:40 GFR Calculation Not Reportable 01/05/23 21:40 Glucose 229 mg/dL (65-115) H 01/05/23 21:40 Calculated Osmolality 287 mOsm/kg (285-295) 01/05/23 21:40 Lactic Acid 2.1 mmol/L (0.5-2.2) 01/05/23 21:40 Calcium 8.7 mg/dL (8.5-10.5) 01/05/23 21:40 Total Bilirubin 0.3 mg/dL (0.15-1.2) 01/05/23 21:40 AST 9 U/L (0-32) 01/05/23 21:40 ALT 11 U/L (0-33) 01/05/23 21:40 Alkaline Phosphatase 167 U/L (35-105) H 01/05/23 21:40 NT-Pro-B Natriuret Pep 3574 pg/mL (0-450) H 01/05/23 21:40 Total Protein 7.1 g/dL (6.6-8.7) 01/05/23 21:40 Albumin 3.8 g/dL (3.5-5.2) 01/05/23 21:40 Globulin 3.3 g/dL (1.3-4.6) 01/05/23 21:40 Discharge Plan Discharge Patient Disposition: Home Clinical Impression: Acute exacerbation of chronic obstructive airways disease Condition: Stable Prescriptions: New Medrol (Trey) 4 mg tablets,dose pack See Rx Instructions .ROUTE .COMPLEX Qty: 21 0RF Rx Instructions: orally per package directions No Action aspirin 81 mg tablet,delayed release (DR/EC) 81 mg PO DAILY mometasone 0.1 % solution 1 applic topical DAILY Qty: 60 3RF Rx Instructions: Apply a few drops to scalp daily as needed for itch. budesonide-formoterol [Symbicort] 160-4.5 mcg/actuation HFA aerosol inhaler 2 puff inhalation Q12H Qty: 10.2 2RF albuterol sulfate [Ventolin HFA] 90 mcg/actuation HFA aerosol inhaler 2 puff inhalation 6XD Qty: 8.5 0RF (DME) overnight oximetry See Rx Instructions .Route .MEDSUPPLY Qty: 1 0RF Rx Instructions: As directed (DME) FreeStyle [place] 14 Day Sensor Kit See Rx Instructions .Route Qty: 2 11RF Rx Instructions: As directed (DME) FreeStyle [place] 14 Day [place] Misc See Rx Instructions .Route Qty: 1 0RF Rx Instructions: As directed clopidogrel 75 mg tablet 75 mg PO DAILY 90 Days Qty: 90 3RF Hold Instructions: Resume on 05/07/21. Until seen by primary care, recheck CBC (DME) blood-glucose meter Misc See Rx Instructions .Route Qty: 1 0RF Rx Instructions: As directed with testing strips (DME) Blood Glucose Test Strip See Rx Instructions .Route Qty: 50 0RF Rx Instructions: As directed with glucose machine. (DME) pen needle, diabetic [TechLITE Pen Needle] 32 gauge x 5/32 needle See Rx Instructions .Route Qty: 100 0RF Rx Instructions: As directed glipizide 5 mg tablet 5 mg PO DAILY 90 Days Qty: 90 1RF famotidine 20 mg tablet See Rx Instructions .ROUTE .COMPLEX Qty: 60 3RF Dose Instruction: TAKE ONE TABLET BY MOUTH TWICE DAILY Rx Instructions: TAKE ONE TABLET BY MOUTH TWICE DAILY carvedilol 3.125 mg tablet 3.125 mg PO BID Qty: 180 1RF furosemide 20 mg tablet 20 mg PO DAILY Qty: 60 1RF loratadine 10 mg tablet 10 mg PO DAILY Qty: 30 2RF potassium chloride 10 mEq capsule, extended release 10 meq PO BID Qty: 270 0RF oxycodone 15 mg tablet 15 mg PO Q6H PRN (Reason: pain) 30 Days Qty: 120 0RF atorvastatin 80 mg tablet 80 mg PO BEDTIME Qty: 90 3RF lisinopril 2.5 mg tablet See Rx Instructions .ROUTE .COMPLEX Qty: 30 0RF Dose Instruction: TAKE ONE TABLET BY MOUTH EVERY DAY Rx Instructions: TAKE ONE TABLET BY MOUTH EVERY DAY montelukast 10 mg tablet See Rx Instructions .ROUTE .COMPLEX Qty: 30 0RF Dose Instruction: TAKE ONE TABLET BY MOUTH EVERY DAY Rx Instructions: TAKE ONE TABLET BY MOUTH EVERY DAY Flonase Allergy Relief 50 mcg/actuation spray,suspension 2 spray intranasal DAILY PRN (Reason: Nasal Congestion) Rx Instructions: administer into each nostril Lantus Solostar U-100 Insulin 100 unit/mL (3 mL) insulin pen 14 unit SUBCUT BEDTIME ondansetron 4 mg tablet,disintegrating 4 mg PO Q8H PRN (Reason: nausea and vomiting) Qty: 15 0RF prednisone 50 mg tablet 50 mg PO DAILY Qty: 5 0RF Discharge Orders: Discharge ED (Routine); Ordered 01/05/23 Ordered By: John Ramirez Other Ambulatory Orders: DME: Oxygen (Order) Location: None Selected Ordered By: John Ramirez Referrals: Patti Irwin DO [Primary Care Provider] - 1-3 days Patient Instructions: COPD (Chronic Obstructive Pulmonary Disease) (ED) Activity Restrictions/Additional Instructions: Return for worsening shortness of breath, fever greater than 100, chest pain, other concerning symptoms. You should be contacted in the morning by the medical equipment office about getting set up for home oxygen. Coding Level of Care Code ED Swatcher for Betty Vela
[2023-01-05 21:52] LABS: Basophils % 0.1 %; Eosinophils # 0.4 10^3/uL (0.0-0.8); Eosinophils % 3.8 %; Hematocrit 36.4 % (37.0-47.0); Hemoglobin 11.3 g/dL (11.5-15.3); Lymphocytes % 20.5 %; Mean Corpuscular Hemoglobin 28.3 pg (28.0-34.0); Mean Corpuscular Volume 91.2 fl (81-99); Mean Platelet Volume 9.6 fL (7.4-10.4); Monocytes # 0.6 10^3/uL (0.2-0.9); Monocytes % 5.8 %; Neutrophils # 6.73 10^3/uL (1.8-7.7); Neutrophils % 69.5 %; Nucleated Red Blood Cells % 0 %; Platelet Count 516 10^3/cmm (130-400); Red Blood Count 3.99 10^6/uL (4.1-5.3); Red Cell Distribution Width 13.3 % (12.1-15.1); White Blood Count 9.7 10^3/uL (4.0-10.0)
[2023-01-05 22:00] VITALS: BP 148/86; PULSE 97; O2SAT 96
[2023-01-05 22:24] LABS: Alanine Aminotransferase 11 U/L (0-33); Albumin Level 3.8 g/dL (3.5-5.2); Alkaline Phosphatase 167 U/L (35-105); Anion Gap 16.4 (5-19); Aspartate Amino Transferase 9 U/L (0-32); Blood Urea Nitrogen 13 mg/dL (8-23); Calcium 8.7 mg/dL (8.5-10.5); Carbon Dioxide 27 mmol/L (22-29); Chloride 96 mmol/L (98-107); Globulin 3.3 g/dL (1.3-4.6); Glucose 229 mg/dL (65-115); NT Pro B Type Natriuretic Pept 3574 pg/mL (0-450); Osmolality Calculated 287 mOsm/kg (285-295); Potassium 4.4 mmol/L (3.5-5.1); Sodium 135 mmol/L (136-145); Total Bilirubin 0.3 mg/dL (0.15-1.2); Total Protein 7.1 g/dL (6.6-8.7)
[2023-01-05 23:46] VITALS: BP 158/88; PULSE 84; RESP 20; O2SAT 97
[2023-01-06 00:21] LABS: Lactic Sepsis W/Reflex 2.1 mmol/L (0.5-2.2)
[2023-01-06 00:22] LABS: Reflex Lactate Order REFLEX LACTIC ORDERD
== END 2023-01-05 23:46 | disposition home or self-care (01) ==
PROVIDERS: Emergency Provider Emergency Medicine; PCP Family Medicine
DX: J44.1 Chronic obstructive pulmonary disease with (acute) exacerbation (principal); Z79.82 Long term (current) use of aspirin; Z79.02 Long term (current) use of antithrombotics/antiplatelets; Z79.4 Long term (current) use of insulin; Z79.84 Long term (current) use of oral hypoglycemic drugs; F17.210 Nicotine dependence, cigarettes, uncomplicated; Z85.3 Personal history of malignant neoplasm of breast; I13.0 Hypertensive heart and chronic kidney disease with heart failure and stage 1 through stage 4 chronic kidney disease, or unspecified chronic kidney disease; E13.22 Other specified diabetes mellitus with diabetic chronic kidney disease; N18.9 Chronic kidney disease, unspecified; I50.9 Heart failure, unspecified; Z86.73 Personal history of transient ischemic attack (TIA), and cerebral infarction without residual deficits; E78.5 Hyperlipidemia, unspecified
CPT/HCPCS: 71045; 80053; 83605; 83880; 85025; 93005; 94640; 96374; 99285; J2930

== ENCOUNTER → 2023-01-10 08:43 | Outpatient (BNVA) | payer MEDICARE, SELFPAY | PROVIDERS: PCP Family Medicine; Visit Provider Internal Medicine Cardiovascular Disease | DX: J44.1 Chronic obstructive pulmonary disease with (acute) exacerbation (principal); Z98.890 Other specified postprocedural states; Z86.79 Personal history of other diseases of the circulatory system; I65.23 Occlusion and stenosis of bilateral carotid arteries; F17.219 Nicotine dependence, cigarettes, with unspecified nicotine-induced disorders; D64.9 Anemia, unspecified; I70.1 Atherosclerosis of renal artery; E66.9 Obesity, unspecified; Z68.33 Body mass index [BMI] 33.0-33.9, adult; E78.5 Hyperlipidemia, unspecified; I13.0 Hypertensive heart and chronic kidney disease with heart failure and stage 1 through stage 4 chronic kidney disease, or unspecified chronic kidney disease; E13.22 Other specified diabetes mellitus with diabetic chronic kidney disease; N18.9 Chronic kidney disease, unspecified; I50.40 Unspecified combined systolic (congestive) and diastolic (congestive) heart failure; Z79.4 Long term (current) use of insulin | CPT/HCPCS: 99214 ==

== ENCOUNTER 2023-02-15 13:42 | Inpatient (IN) | payer MEDICARE, SELFPAY ==
[2023-02-15] VITALS (11 sets, daily range): BP systolic 119–165; BP diastolic 69–80; PULSE 72–115; RESP 10–32; TEMP 36.7–36.9; O2SAT 95–100; BMI 35.0
--- NOTE | 2023-02-15 13:56 | ECG_ITS ---
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 Measurements Intervals [place] Rate: 117 P: 250 HI: 168 QRS: -14 QRSD: 146 T: 67 QT: 361 QTc: 505 Interpretive Statements ECTOPIC ATRIAL TACHYCARDIA WITH OCCASIONAL VENTRICULAR PREMATURE COMPLEXES INTRAVENTRICULAR CONDUCTION DELAY [130+ ms QRS DURATION] Compared to ECG 01/05/2023 21:54:48 Ventricular premature complex(es) now present Sinus tachycardia no longer present Short [place] interval no longer present Left-axis deviation no longer present Electronically Signed On 02-15-2023 15:23:40 CDT by Jaxon Fernandes M.D. [id number] f
--- NOTE | 2023-02-15 13:59 | XRR_ITS ---
PROCEDURE INFORMATION: Exam: XR Chest Exam date and time: 02/15/2023 2:07 PM Age: 82 years old Clinical indication: Shortness of breath; Additional info: Dyspnea/cough TECHNIQUE: Imaging protocol: Radiologic exam of the chest. Views: 1 view. COMPARISON: CR (CHEST, ) 01/05/2023 10:23 PM FINDINGS: Lungs: Lungs are clear. Pleural spaces: There is no pleural effusion or pneumothorax. Heart/Mediastinum: There is moderate enlargement of the cardiac silhouette. Bones/joints: Bones are unremarkable. XR/XR chest 1V portable [id number] IMPRESSION: No acute findings.
--- NOTE | 2023-02-15 14:02 | W.ED.SOB ---
HPI - SOB/Dyspnea General: Chief Complaint: Shortness of Breath/Dyspnea Stated Complaint: can't breathe Time Seen by Provider: 02/15/23 13:52 Source: patient Mode of arrival: wheelchair History of Present Illness: HPI Narrative: 82-year-old female with a history of COPD breast cancer and coronary artery disease normally wears 3 L by nasal cannula presents to the emergency room at 78% on 3 L. When I seen the patient she was on 4 L by nasal cannula and has had 98%. She has been on oxygen for some time due to COPD she has a history of smoking although she tells me she quit, yesterday. She is not having any chest pain at this time denies any fevers sweats or chills. She is in A-fib with RVR on presentation moderately tachypneic as well. MD elicited complaint: shortness of breath and cough Pertinent past history: COPD Onset (ago): hour(s) Timing: constant Severity: moderate Exacerbating factors: nothing Associated symptoms: Reports palpitations; Deny abdominal pain, chest pain, fever(s), nausea or vomiting Review of Systems Const: Denies: fever(s), chills, body aches, change in appetite, fatigue or malaise ENMT: Denies: throat pain, ear or mastoid pain, nasal discharge or nasal congestion Card: Reports: palpitations, irregular heart rhythm, edema and swelling of feet/ankles; Denies: chest pain Resp: Reports: dyspnea and wheezing; Denies: productive cough or non-productive cough GI: Denies: abdominal pain, nausea, vomiting, hematemesis, coffee ground emesis, diarrhea, constipation, bloating, hematochezia or melena : Denies: flank pain, difficulty voiding, dysuria, urinary frequency or urinary urgency Skin/Breast: Denies: rash or pruritus PFSH ED PFSH: Medical History AAA (abdominal aortic aneurysm) Status post stent graft repair Anemia Atopic dermatitis B12 deficiency Breast CA Carotid artery disease CHF (congestive heart failure) Diastolic/Systolic EF 37% 12/14 Chronic kidney disease Chronic pain COPD (chronic obstructive pulmonary disease) CVA (cerebral vascular accident) Descending thoracic aortic 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, 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 Dyslipidemia History of COVID-12 Aug 2021 History of nonmelanoma skin cancer HTN (hypertension) Nicotine dependence, cigarettes, with unspecified nicotine-induced disorders Obesity Osteoporosis Pneumonia Renal artery stenosis Seasonal allergies Surgical History History of aortic aneurysm repair History of stent insertion of renal artery History of total mastectomy of left breast 04/[address] Vo at [place], [place] S/P cholecystectomy S/P hysterectomy S/P mastectomy (08/2009) Right modified radical mastectomy S/P tonsillectomy Family History Other Stroke Social History Smoking and tobacco status: current every day smoker cigarettes Packs smoked per day: 0.25 Alcohol intake: never Physical Exam Const: COMMON NORMALS: no acute distress GENERAL APPEARANCE: cooperative and comfortable ORIENTATION/CONSCIOUSNESS: Yes awake, Yes oriented to person, Yes oriented to place and Yes oriented to time HENMT: COMMON NORMALS: normocephalic, atraumatic and hearing grossly normal bilaterally HEAD & SCALP: normocephalic and atraumatic Resp: COMMON NORMALS: normal respiratory effort, No retractions, No use of accessory muscles and clear to auscultation bilaterally AUSCULTATION: clear to auscultation bilaterally Cardio: COMMON NORMALS: No murmurs present (Cardio) RATE: tachycardic RHYTHM: abnormal rhythm GI: COMMON NORMALS: Soft to palpation and No hepatosplenomegaly present AUSCULTATION: Yes normoactive bowel sounds PALPATION: Yes Soft to palpation, No Tenderness to palpation present (GI), No Guarding due to palpation present (GI) and Yes No hepatosplenomegaly present Extremity: COMMON NORMALS: normal to inspection, capillary refill normal, no clubbing, cyanosis or edema, no calf tenderness and no pedal edema Neuro: SENSORIUM/ORIENTATION: Yes oriented to person, Yes oriented to place and Yes oriented to time Skin: COMMON NORMALS: no rashes or lesions noted GENERAL SKIN EXAM: no rashes or lesions noted Course Vital Signs: Vital signs: Vital Signs Pulse Rate 72 02/15/23 15:29 Respiratory Rate 22 H 02/15/23 14:11 Blood Pressure 119/69 02/15/23 14:25 Pulse Oximetry 100 02/15/23 15:29 Oxygen Delivery Me thod 02/15/23 14:25 Oxygen Flow Rate 3 02/15/23 14:11 Fraction of Inspir ed Oxygen 40 02/15/23 15:29 MDM - SOB/Dyspnea Medical Decision Making When patient arrived she was in atrial fibrillation. Her rate was not significantly elevated she was given IV Lopressor and extra dose of carvedilol which controlled her rate very nicely blood pressures stabilized. She is hypercapnic and mildly hypoxic will require admission for hypercapnic respiratory failure with hypoxia on BiPAP. She was claustrophobic with the BiPAP and would not tolerate so she is given Ativan is tolerating much better now discussed with hospitalist orders written Medical Records I reviewed the patient's medical records. Lab Data I reviewed the patient's lab results. 02/15/23 13:50 02/15/23 13:50 Labs/Radiology: Radiology Impressions Chest X-Ray 02/15/23 13:59 IMPRESSION: No acute findings. Laboratory Results WBC 10.1 10^3/uL (4.0-10.0) H 02/15/23 13:50 RBC 4.06 10^6/uL (4.1-5.3) L 02/15/23 13:50 Hgb 11.5 g/dL (11.5-15.3) 02/15/23 13:50 Hct 37.4 % (37.0-47.0) 02/15/23 13:50 MCV 92.1 fl (81-99) 02/15/23 13:50 MCH 28.3 pg (28.0-34.0) 02/15/23 13:50 MCHC 30.7 g/dL (30.0-36.0) 02/15/23 13:50 RDW 14.4 % (12.1-15.1) 02/15/23 13:50 Plt Count 430 10^3/cmm (130-400) H 02/15/23 13:50 MPV 10.1 fL (7.4-10.4) 02/15/23 13:50 Neut % (Auto) 50.6 % 02/15/23 13:50 Lymph % (Auto) 33.4 % 02/15/23 13:50 [place] % (Auto) 9.0 % 02/15/23 13:50 Eos % (Auto) 6.6 % 02/15/23 13:50 Baso % (Auto) 0.2 % 02/15/23 13:50 Neut # (Auto) 5.13 10^3/uL (1.8-7.7) 02/15/23 13:50 Lymph # (Auto) 3.4 10^3/uL (0.8-4.8) 02/15/23 13:50 Greene # (Auto) 0.9 10^3/uL (0.2-0.9) 02/15/23 13:50 Eos # (Auto) 0.7 10^3/uL (0.0-0.8) 02/15/23 13:50 Baso # (Auto) 0.0 10^3/uL (0.0-0.1) 02/15/23 13:50 Nucleated RBC % (auto) 0 % 02/15/23 13:50 Nucleated RBCs # 0.0 /100WBC 02/15/23 13:50 Specimen Type Arterial 02/15/23 14:08 Sample Site Radial, right 02/15/23 14:08 ABG pH 7.30 (7.35-7.45) L 02/15/23 14:08 ABG pCO2 62.5 mmHg (35-45) H* 02/15/23 14:08 ABG pO2 82.1 mmHg (80.0-100.0) 02/15/23 14:08 ABG HCO3 31.0 mmol/L (22-26) H 02/15/23 14:08 ABG O2 Saturation 96.3 02/15/23 14:08 ABG Base Excess 3.3 mmol/L (-2.0-2.0) H 02/15/23 14:08 Carlos Alberto Test Pos 02/15/23 14:08 A-a O2 Gradient Not Reportable 02/15/23 14:08 Hematocrit 34.4 % (37-47) L 02/15/23 14:08 Hgb O2 Saturation 93.9 % (95-100) L 02/15/23 14:08 Carboxyhemoglobin 1.9 %THgb (0.4-20.1) 02/15/23 14:08 Methemoglobin 0.6 % (0.4-1.5) 02/15/23 14:08 Total Hemoglobin 11.2 g/dL (12-16) L 02/15/23 14:08 Sodium 140.0 mmol/L (131-143) 02/15/23 14:08 Potassium 3.9 mmol/L (3.5-5.0) 02/15/23 14:08 Glucose 143.0 mg/dL (70-115) H 02/15/23 14:08 Ionized Calcium 1.2 mmol/L (1.1-1.4) 02/15/23 14:08 O2 Delivery Device Nc 02/15/23 14:08 O2 Liters/Min 3.0 % 02/15/23 14:08 Senior Net Software Developer ID [place] 02/15/23 14:08 Sodium 139 mmol/L (136-145) 02/15/23 13:50 Potassium 4.3 mmol/L (3.5-5.1) 02/15/23 13:50 Chloride 100 mmol/L (98-107) 02/15/23 13:50 Carbon Dioxide 30 mmol/L (22-29) H 02/15/23 13:50 Anion Gap 13.3 (5-19) 02/15/23 13:50 BUN 15 mg/dL (8-23) 02/15/23 13:50 Creatinine 1.2 mg/dL (0.5-0.9) H 02/15/23 13:50 GFR Calculation Not Reportable 02/15/23 13:50 Glucose 133 mg/dL (65-115) H 02/15/23 13:50 Calculated Osmolality 291 mOsm/kg (285-295) 02/15/23 13:50 Calcium 8.9 mg/dL (8.5-10.5) 02/15/23 13:50 Magnesium 2.0 mg/dL (1.7-2.3) 02/15/23 13:50 Total Bilirubin 0.4 mg/dL (0.15-1.2) 02/15/23 13:50 AST 16 U/L (0-32) 02/15/23 13:50 ALT 13 U/L (0-33) 02/15/23 13:50 Alkaline Phosphatase 137 U/L (35-105) H 02/15/23 13:50 NT-Pro-B Natriuret Pep 1862 pg/mL (0-450) H 02/15/23 13:50 Total Protein 6.9 g/dL (6.6-8.7) 02/15/23 13:50 Albumin 3.6 g/dL (3.5-5.2) 02/15/23 13:50 Globulin 3.3 g/dL (1.3-4.6) 02/15/23 13:50 Discharge Plan Discharge Patient Disposition: Placed in Observation Clinical Impression: Atrial fib/flutter, transient, Acute respiratory failure without hypercapnia, COPD exacerbation Condition: Stable Prescriptions: No Action mometasone 0.1 % solution 1 applic topical DAILY Qty: 60 3RF Rx Instructions: Apply a few drops to scalp daily as needed for itch. budesonide-formoterol [Symbicort] 160-4.5 mcg/actuation HFA aerosol inhaler 2 puff inhalation Q12H Qty: 10.2 2RF albuterol sulfate [Ventolin HFA] 90 mcg/actuation HFA aerosol inhaler 2 puff inhalation 6XD Qty: 8.5 0RF (DME) overnight oximetry See Rx Instructions .Route .MEDSUPPLY Qty: 1 0RF Rx Instructions: As directed (DME) FreeStyle [place] 14 Day Sensor Kit See Rx Instructions .Route Qty: 2 11RF Rx Instructions: As directed (DME) FreeStyle [place] 14 Day [place] Misc See Rx Instructions .Route Qty: 1 0RF Rx Instructions: As directed clopidogrel 75 mg tablet 75 mg PO DAILY 90 Days Qty: 90 3RF Hold Instructions: Resume on 05/07/21. Until seen by primary care, recheck CBC (DME) blood-glucose meter Misc See Rx Instructions .Route Qty: 1 0RF Rx Instructions: As directed with testing strips (DME) Blood Glucose Test Strip See Rx Instructions .Route Qty: 50 0RF Rx Instructions: As directed with glucose machine. (DME) pen needle, diabetic [TechLITE Pen Needle] 32 gauge x 5/32 needle See Rx Instructions .Route Qty: 100 0RF Rx Instructions: As directed glipizide 5 mg tablet 5 mg PO DAILY 90 Days Qty: 90 1RF carvedilol 3.125 mg tablet 3.125 mg PO BID Qty: 180 1RF potassium chloride 10 mEq capsule, extended release 10 meq PO BID Qty: 270 0RF atorvastatin 80 mg tablet 80 mg PO BEDTIME Qty: 90 3RF loratadine 10 mg tablet 10 mg PO DAILY Qty: 90 3RF (DME) breast prosthesis bilateral and bras x4 See Rx Instructions .Route .MEDSUPPLY Qty: 1 0RF Rx Instructions: As directed oxycodone 15 mg tablet 15 mg PO Q6H PRN (Reason: pain) 30 Days Qty: 120 0RF fluticasone propionate [Flonase Allergy Relief] 50 mcg/actuation spray,suspension 2 spray intranasal DAILY PRN (Reason: Nasal Congestion) Rx Instructions: administer into each nostril insulin glargine [Lantus Solostar U-100 Insulin] 100 unit/mL (3 mL) insulin pen 14 unit SUBCUT BEDTIME ondansetron 4 mg tablet,disintegrating 4 mg PO Q8H PRN (Reason: nausea and vomiting) Qty: 15 0RF famotidine 20 mg tablet 20 mg PO BID montelukast 10 mg tablet 10 mg PO DAILY furosemide 20 mg tablet 20 mg PO DAILY lisinopril 2.5 mg tablet 2.5 mg PO DAILY Referrals: Patti Irwin DO [Primary Care Provider] - Coding Level of Care Code ED Director Immunology for Betty Vela
[2023-02-15 14:11] LABS: Basophils % 0.2 %; Eosinophils # 0.7 10^3/uL (0.0-0.8); Eosinophils % 6.6 %; Hematocrit 37.4 % (37.0-47.0); Hemoglobin 11.5 g/dL (11.5-15.3); Lymphocytes # 3.4 10^3/uL (0.8-4.8); Lymphocytes % 33.4 %; Mean Corpuscular HGB Conc 30.7 g/dL (30.0-36.0); Mean Corpuscular Hemoglobin 28.3 pg (28.0-34.0); Mean Corpuscular Volume 92.1 fl (81-99); Mean Platelet Volume 10.1 fL (7.4-10.4); Monocytes # 0.9 10^3/uL (0.2-0.9); Neutrophils # 5.13 10^3/uL (1.8-7.7); Neutrophils % 50.6 %; Nucleated Red Blood Cells % 0 %; Platelet Count 430 10^3/cmm (130-400); Red Blood Count 4.06 10^6/uL (4.1-5.3); Red Cell Distribution Width 14.4 % (12.1-15.1); White Blood Count 10.1 10^3/uL (4.0-10.0)
[2023-02-15] MEDS: metoprolol tartrate 1 mg/1 mL SDV 5 mL 2.5 MG IVP (14:16)
[2023-02-15] MEDS: carvedilol 3.125 mg Tablet PO (14:16)
[2023-02-15 14:19] LABS: Arterial Blood Gas Hematocrit 34.4 % (37-47); Base Excess ABG 3.3 mmol/L (-2.0-2.0); Blood Gas Allen Test Pos; Blood Gas Operator Identificat WALCI; Blood Gas Sample Site Radial, right; Blood Gas Sample Type Arterial; Carboxyhemoglobin 1.9 %THgb (0.4-20.1); HGB O2 Sat 93.9 % (95-100); Ionized Calcium Level - ABG 1.2 mmol/L (1.1-1.4); Methemoglobin 0.6 % (0.4-1.5); Oxygen Device NC; Oxygen Saturation ABG 96.3; PO2 ABG 82.1 mmHg (80.0-100.0); Potassium Level - ABG 3.9 mmol/L (3.5-5.0); Total Hemoglobin 11.2 g/dL (12-16)
[2023-02-15 14:20] LABS: ABG PCO2 62.5 mmHg (35-45)
[2023-02-15 14:42] LABS: Alanine Aminotransferase 13 U/L (0-33); Albumin Level 3.6 g/dL (3.5-5.2); Alkaline Phosphatase 137 U/L (35-105); Anion Gap 13.3 (5-19); Aspartate Amino Transferase 16 U/L (0-32); Blood Urea Nitrogen 15 mg/dL (8-23); Calcium 8.9 mg/dL (8.5-10.5); Carbon Dioxide 30 mmol/L (22-29); Chloride 100 mmol/L (98-107); Globulin 3.3 g/dL (1.3-4.6); Glucose 133 mg/dL (65-115); NT Pro B Type Natriuretic Pept 1862 pg/mL (0-450); Osmolality Calculated 291 mOsm/kg (285-295); Potassium 4.3 mmol/L (3.5-5.1); Sodium 139 mmol/L (136-145); Total Bilirubin 0.4 mg/dL (0.15-1.2); Total Protein 6.9 g/dL (6.6-8.7)
[2023-02-15] MEDS: LORazepam 2 mg/mL INJ 1 mL 1 MG IVP (15:22)
--- NOTE | 2023-02-15 15:56 | ECG_ITS ---
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 Measurements Intervals [place] Rate: 69 P: -82 NV: 186 QRS: -39 QRSD: 150 T: 110 QT: 456 QTc: 492 Interpretive Statements ECTOPIC ATRIAL RHYTHM LEFT AXIS DEVIATION [QRS AXIS < -30] LEFT BUNDLE BRANCH BLOCK [120+ ms QRS DURATION, 80+ ms Q/S IN V1/V2, 85+ ms R IN I/aVL/V5/V6] Compared to ECG 02/15/2023 13:52:37 Ectopic atrial rhythm now present Left-axis deviation now present Left bundle-branch block now present Ventricular premature complex(es) no longer present Intraventricular conduction delay no longer present Electronically Signed On 02-16-2023 7:18:44 CDT by Jaxon Fernandes M.D. [id number]
[2023-02-15 16:31] LABS: Troponin(5th) Baseline 23 ng/L (0-10)
--- NOTE | 2023-02-15 16:33 | PM.HP ---
Providers/Chief Complaint Admitting Physician: Gurmeet Vega MD Primary Care Provider: Patti Irwin DO Chief Complaint: can't breathe History of Present Illness Paloma Slater is a 82 year old female with a past medical history of CHF, history of CAD, history of atrial fibrillation/flutter, history of breast cancer status post bilateral mastectomy, history of COPD, current smoker, history of insulin-dependent type 2 diabetes mellitus, history of anemia, history of iron deficiency anemia who presents [facility] for increased shortness of breath. Currently patient is alert to person, place, not to time, she is on BiPAP she is received Ativan, but she can follow commands. Some of the history was obtained by patient, some from her daughters at bedside. They tell me that patient for the last day has been feeling increasingly short of breath, short of breath with exertion, with a cough, no fevers, no chills. She is a smoker but she has been cutting down her cigarette smoking. She has extreme claustrophobia, and she does not like to be in the hospital, but patient is agreeable for admission, she is given Ativan for BiPAP, she does not use CPAP or BiPAP at home. Review of Systems Const: Denies: fever(s) Card: Denies: chest pain Resp: Reports: dyspnea GI: Denies: abdominal pain : Denies: difficulty voiding Neuro: Denies: headache(s) or numbness in extremities Medications/Allergies Home Medications Medication Instructions Recorded Confirmed Last Taken Type mometasone 0.1 % topical solution 1 applic topical DAILY #60 mL 02/19/22 02/15/23 05/01/22 Rx clopidogrel 75 mg tablet 75 mg PO DAILY 3 months #90 tabs 03/04/22 02/15/23 02/15/23 Rx flash glucose scanning reader #1 ea 03/04/22 02/15/23 Unknown Rx (FreeStyle Odell 14 Day [place]) flash glucose sensor (FreeStyle #2 ea 03/04/22 02/15/23 Unknown Rx Odell 14 Day Sensor kit) blood sugar diagnostic (Blood #50 ea 03/06/22 02/15/23 Unknown Rx Glucose Test strips) blood-glucose meter #1 ea 03/06/22 02/15/23 Unknown Rx pen needle, diabetic 32 gauge x #100 ea 04/12/22 02/15/23 Unknown Rx (TechLITE Pen Needle) fluticasone propionate 50 2 spray intranasal DAILY PRN Nasal 06/27/22 02/15/23 02/15/23 History mcg/actuation nasal Congestion spray,suspension (Flonase Allergy Relief) insulin glargine 100 unit/mL (3 14 unit SUBCUT BEDTIME 06/27/22 02/15/23 02/14/23 History mL) subcutaneous pen (Lantus Solostar U-100 Insulin) ondansetron 4 mg disintegrating 4 mg PO Q8H PRN nausea and 06/27/22 02/15/23 Unknown Rx tablet vomiting #15 tabs glipizide 5 mg tablet 5 mg PO DAILY 90 days #90 tabs 10/01/22 02/15/23 02/15/23 Rx carvedilol 3.125 mg tablet 3.125 mg PO BID #180 tabs 10/31/22 02/15/23 02/15/23 Rx potassium chloride 10 mEq 10 meq PO BID #270 caps 10/31/22 02/15/23 02/15/23 Rx capsule,extended release albuterol sulfate 90 mcg/actuation 2 puff inhalation 6XD #8.5 grams 12/17/22 02/15/23 02/15/23 Rx aerosol inhaler (Ventolin HFA) budesonide-formoterol HFA 160 2 puff inhalation Q12H #10.2 grams 12/17/22 02/15/23 02/15/23 Rx mcg-4.5 mcg/actuation aerosol inhaler (Symbicort) overnight oximetry #1 ea 12/17/22 02/15/23 Unknown Rx atorvastatin 80 mg tablet 80 mg PO BEDTIME #90 tabs 12/26/22 02/15/23 02/14/23 Rx loratadine 10 mg tablet 10 mg PO DAILY #90 tabs 01/21/23 02/15/23 02/15/23 Rx breast prosthesis bilateral and #1 ea 02/05/23 02/15/23 Unknown Rx bras x4 oxycodone 15 mg tablet 15 mg PO Q6H PRN pain 30 days #120 02/11/23 02/15/23 Unknown Rx tabs famotidine 20 mg tablet 20 mg PO BID 02/15/23 02/15/2302/15/23 History furosemide 20 mg tablet 20 mg PO DAILY 02/15/23 02/15/23 02/15/23 History lisinopril 2.5 mg tablet 2.5 mg PO DAILY 02/15/23 02/15/23 02/15/23 History montelukast 10 mg tablet 10 mg PO DAILY 02/15/23 02/15/23 02/15/23 History Allergies Allergy/AdvReac Type Severity Reaction Status Date / Time adhesive tape Allergy Unknown Unknown Verified 02/15/23 14:17 bacitracin Allergy Unknown Unknown Verified 02/15/23 14:17 [From Neosporin ([id number])] codeine Allergy Unknown Unknown Verified 02/15/23 14:17 neomycin Allergy Unknown Unknown Verified 02/15/23 14:17 [From Neosporin ([id number])] penicillamine Allergy Unknown Unknown Verified 02/15/23 14:17 Penicillins Allergy Unknown Unknown Verified 02/15/23 14:17 polymyxin B Allergy Unknown Unknown Verified 02/15/23 14:17 [From Neosporin ([id number])] prochlorperazine Allergy Unknown Unknown Verified 02/15/23 14:17 [From Compazine] Sulfa (Sulfonamide Allergy Unknown Unknown Verified 02/15/23 14:17 Antibiotics) PFSH Acute PFSH: Medical History (Updated 02/15/23 @ 16:40 by Gurmeet Vega MD) AAA (abdominal aortic aneurysm) Status post stent graft repair Anemia Atopic dermatitis B12 deficiency Breast CA Carotid artery disease CHF (congestive heart failure) Diastolic/Systolic EF 37% 12/14 Chronic kidney disease Chronic pain COPD (chronic obstructive pulmonary disease) CVA (cerebral vascular accident) Descending thoracic aortic 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, 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 Dyslipidemia History of COVID-19 Jul 2021 History of nonmelanoma skin cancer HTN (hypertension) Nicotine dependence, cigarettes, with unspecified nicotine-induced disorders Obesity Osteoporosis Pneumonia Renal artery stenosis Seasonal allergies Surgical History History of aortic aneurysm repair History of stent insertion of renal artery History of total mastectomy of left breast 04/[address] Vo at [place], [place] S/P cholecystectomy S/P hysterectomy S/P mastectomy (08/2009) Right modified radical mastectomy S/P tonsillectomy Family History Other Stroke Social History Smoking and tobacco status: current every day smoker cigarettes Packs smoked per day: 0.25 Alcohol intake: never Vitals/I&O/Wt Last Vital Signs Pulse 72 02/15/23 15:29 Resp 22 H 02/15/23 14:11 BP 119/69 02/15/23 14:25 Pulse Ox 100 02/15/23 15:29 O2 Del Method 02/15/23 14:25 O2 Flow Rate 3 02/15/23 14:11 FiO2 40 02/15/23 15:29 Physical Exam Const: COMMON NORMALS: no acute distress ORIENTATION/CONSCIOUSNESS: Yes awake and Yes oriented to person; not oriented to place and not oriented to time HENMT: COMMON NORMALS: normocephalic HEAD & SCALP: normocephalic Eye: COMMON NORMALS: Equal, round and reactive pupils present Neck/C-Spine: COMMON NORMALS: no JVD Lymph: LYMPHATIC: no lymphadenopathy noted Resp: COMMON NORMALS: normal respiratory effort, No retractions and No use of accessory muscles AUSCULTATION: crackles and wheezes Cardio: COMMON NORMALS: no JVD, regular rate, regular rhythm, S1 normal heart sound present and S2 normal heart sound present RATE: regular rate RHYTHM: regular rhythm HEART SOUNDS: S1 normal heart sound present and S2 normal heart sound present GI: COMMON NORMALS: Normal to inspection, nondistended, normoactive bowel sounds present, Soft to palpation and non-tender : COMMON NORMALS: Yes no CVA tenderness Extremity: NARRATIVE EXTREMITY EXAM: 1+ pitting Neuro: OTHER: Alert to person, not to place, sits up in bed, no focal weakness Data 02/15/23 13:50 02/15/23 13:50 A&P Assessment and plan (1) Acute and chronic respiratory failure with hypercapnia: (2) COPD exacerbation: (3) CHF exacerbation: (4) Atrial fib/flutter, transient: (5) Diabetes 1.5, managed as type 2: (6) Leg edema: (7) COPD (chronic obstructive pulmonary disease): Qualifiers: COPD type: emphysema Emphysema type: panlobular Qualified Code(s): J43.1 - Panlobular emphysema (8) Obesity: Qualifiers: Obesity type: unspecified obesity type Obesity classification: adult class 1 (BMI 30 - 34.9) (9) Dyslipidemia: (10) Smoker: (11) CHF (congestive heart failure): Qualifiers: Heart failure type: diastolic Heart failure chronicity: chronic Qualified Code(s): I50.32 - Chronic diastolic (congestive) heart failure Plan Acute hypoxic hypercapnic respiratory failure -Secondary to COPD exacerbation -Systolic and diastolic CHF exacerbation Plan -Admit to general medical floors -Continue BiPAP therapy -Ativan 0.5 mg IM every 8 hours as needed for agitation claustrophobia BiPAP machine -Continue Solu-Medrol -Continue budesonide -Continue DuoNeb -Continue doxycycline -1 dose of Lasix -Full code -Lovenox for DVT prophylaxis Paroxysmal atrial fibrillation -Given 12.5 of metoprolol with 3.125 of p.o. metoprolol in the emergency room -Heart rates are well controlled still in A-fib -Will increase metoprolol to 6.25 twice daily -Placed on heparin drip -Monitor hemoglobins closely History of anemia, iron deficiency anemia -Denies any bloody or black stools -Iron studies, ferritin, Hemoccult stool Fluid overload, has 1+ pitting edema, 1 dose of Lasix Smoker, advised to quit smoking Hypertension History of systolic diastolic CHF, repeat cardiac echo Insulin-dependent type 2 diabetes mellitus, low-dose sliding scale Attestations Medical Necessity Statement*: Patient requires hospitalization, inpatient, greater than 2 midnights for acute hypoxic hypercarbic respiratory failure, paroxysmal atrial fibrillation, history of anemia, fluid overload, diastolic CHF exacerbation systolic CHF exacerbation Diagnoses Acute and chronic respiratory failure with hypercapnia J96.22 COPD exacerbation J44.1 CHF exacerbation I50.9 Atrial fib/flutter, 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
[2023-02-15] MEDS: pantoprazole 40 mg SDV IVP (16:36)
[2023-02-15 17:04] LABS: Procalcitonin 0.05 ng/mL (0-0.5); Thyroid Stimulating Hormone 3.08 uIU/mL (0.27-4.20)
[2023-02-15 17:15] LABS: C Reactive Protein 14.2 mg/L (0.0-4.9); Ferritin 95 ng/mL (15-150); Iron 60 ug/dL (37-145); Percent Saturation 19.9 % (20-50); Total Iron Binding Capacity 301 mcg/dl; Unsaturated Iron Binding 241 ug/dL (112-347)
[2023-02-15 17:25] LABS: Troponin 5 2HR 32.11 ng/L (0-10)
[2023-02-15 17:26] LABS: Estmated Average Glucose 140; Hemoglobin A1C 6.5 % (4.0-6.0)
[2023-02-15 17:30] LABS: Troponin 5 2HR Delta 9.11 ABS# (0-10)
[2023-02-15] MEDS: FUROsemide 10 mg/mL SDV 4mL 40 MG IVP (17:42)
[2023-02-15] MEDS: doxycycline 100 MG in sodium chloride 0.9% (plus) 100 ML IV (17:43)
[2023-02-15 17:47] LABS: Glucose Point of Care 138 mg/dL (70-110)
--- NOTE | 2023-02-15 17:56 | ECG_ITS ---
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 Measurements Intervals [place] Rate: 67 P: -79 VT: 156 QRS: -58 QRSD: 150 T: 97 QT: 464 QTc: 492 Interpretive Statements SINUS RHYTHM LEFT AXIS DEVIATION [QRS AXIS < -30] LEFT BUNDLE BRANCH BLOCK [120+ ms QRS DURATION, 80+ ms Q/S IN V1/V2, 85+ ms R IN I/aVL/V5/V6] Compared to ECG 02/15/2023 16:12:58 No significant changes Electronically Signed On 02-16-2023 7:20:31 CDT by Jaxon Fernandes M.D. [id number]
[2023-02-15 19:33] LABS: Partial Thromboplastin Time 29.1 SECONDS (23.9-36.7)
[2023-02-15] MEDS: ipratropium-albuterol 3 mL Neb INHALATION (20:34)
[2023-02-15] MEDS: budesonide 0.5 mg/2 mL Neb INHALATION (20:34)
[2023-02-15 21:22] LABS: Glucose Point of Care 190 mg/dL (70-110)
[2023-02-15] MEDS: atorvastatin 40 mg Tablet 80 MG PO (21:27)
[2023-02-15] MEDS: heparin 5,000 unit/mL INJ 1 mL IV (21:34)
[2023-02-15] MEDS: carvedilol 6.25 mg Tablet PO (21:34)
[2023-02-15] MEDS: heparin drip 25,000 UNIT/500 ML PREMIX 24 UNIT IV (21:36)
[2023-02-15 22:27] LABS: Troponin 5 6HR 32.96 ng/L (0-10)
[2023-02-15 22:28] LABS: Troponin 5 6HR Delta 9.96 ng/L (0-12)
[2023-02-16] VITALS (9 sets, daily range): BP systolic 102–128; BP diastolic 57–67; PULSE 69–90; RESP 14–20; TEMP 36.2–37.2; O2SAT 93–97
[2023-02-16] MEDS: ipratropium-albuterol 3 mL Neb INHALATION ×3 (00:42→07:46)
[2023-02-16 03:22] LABS: ABG PCO2 51.2 mmHg (35-45); Arterial Blood Gas Hematocrit 34.3 % (37-47); Base Excess ABG 5.6 mmol/L (-2.0-2.0); Blood Gas Allen Test Pos; Blood Gas Sample Type Arterial; HCO3 ABG 31.5 mmol/L (22-26); PO2 ABG 92.5 mmHg (80.0-100.0)
[2023-02-16 03:26] LABS: Blood Gas Sample Site Radial, right; Oxygen Device NC
[2023-02-16 03:51] LABS: Lymphocytes # 0.6 10^3/uL (0.8-4.8); Lymphocytes % 7.8 %; Mean Corpuscular HGB Conc 31.4 g/dL (30.0-36.0); Mean Corpuscular Hemoglobin 28.1 pg (28.0-34.0); Mean Corpuscular Volume 89.3 fl (81-99); Mean Platelet Volume 10.3 fL (7.4-10.4); Monocytes % 0.5 %; Neutrophils # 7.14 10^3/uL (1.8-7.7); Neutrophils % 91.3 %; Nucleated Red Blood Cells % 0 %; Platelet Count 370 10^3/cmm (130-400); Red Blood Count 3.92 10^6/uL (4.1-5.3); Red Cell Distribution Width 13.9 % (12.1-15.1); White Blood Count 7.8 10^3/uL (4.0-10.0)
[2023-02-16 04:17] LABS: Anion Gap 13.8 (5-19); Blood Urea Nitrogen 17 mg/dL (8-23); Calcium 8.3 mg/dL (8.5-10.5); Carbon Dioxide 29 mmol/L (22-29); Chloride 99 mmol/L (98-107); Glucose 195 mg/dL (65-115); Magnesium 1.6 mg/dL (1.7-2.3); Osmolality Calculated 293 mOsm/kg (285-295); Phosphorus 3.4 mg/dL (2.5-4.5); Potassium 3.8 mmol/L (3.5-5.1); Sodium 138 mmol/L (136-145)
[2023-02-16 04:22] LABS: Partial Thromboplastin Time 113.7 SECONDS (23.9-36.7)
[2023-02-16 04:23] LABS: NT Pro B Type Natriuretic Pept 4436 pg/mL (0-450)
[2023-02-16] MEDS: doxycycline 100 MG in sodium chloride 0.9% (plus) 100 ML IV (05:50)
[2023-02-16 06:05] LABS: Add Urine Microscopic? NO; Charge for UA Resulting for Rev
[2023-02-16 06:09] LABS: Bilirubin Urine Neg (Negative); Blood Urine Neg (Negative); Glucose Urine UA Norm (Normal); Ketones Urine Negative (Negative); Leukocyte Esterase Urine Negative (Negative); Nitrate Urine Negative (Negative); Protein Urine Neg (Negative); Specific Gravity, Urine 1.015 (1.005-1.030); Urine Appearance Clear (CLEAR); Urine Color Yellow (Yellow); Urobilinogen Urine Neg (Negative); pH Urine 5 (5-7)
[2023-02-16 06:31] LABS: Glucose Point of Care 205 mg/dL (70-110)
[2023-02-16] MEDS: budesonide 0.5 mg/2 mL Neb INHALATION (07:46)
[2023-02-16] MEDS: carvedilol 6.25 mg Tablet PO (08:27)
[2023-02-16] MEDS: montelukast sodium 10 mg Tablet PO (08:27)
[2023-02-16] MEDS: insulin lispro 100 unit/1 mL SUBCUT (08:27)
[2023-02-16] MEDS: clopidogrel 75 mg Tablet PO (08:27)
[2023-02-16] MEDS: oxyCODONE 5 mg IR Tab/Cap 15 MG PO (08:33)
[2023-02-16] MEDS: magnesium lactate 84 mg Tablet PO (09:21)
[2023-02-16] MEDS: potassium chloride ER 20 mEq Tablet PO (09:21)
[2023-02-16] MEDS: FUROsemide 10 mg/mL SDV 4mL 40 MG IVP (09:22)
--- NOTE | 2023-02-16 11:35 | P.DS_ITS ---
Discharge Providers Date of Admission: 02/15/23 16:10 Date of Discharge: February 16, 2023 Attending Provider at Admission: Gurmeet Vega MD Attending Provider at Discharge: Gurmeet Vega MD Primary Care Provider: Patti Irwin DO Diagnoses at Discharge Discharge Diagnosis (1) Acute and chronic respiratory failure with hypercapnia: Status: Acute (2) COPD exacerbation: Status: Acute (3) CHF exacerbation: Status: Acute (4) Atrial fib/flutter, transient: Status: Acute (5) Diabetes 1.5, managed as type 2: Status: Chronic (6) Leg edema: Status: Acute (7) COPD (chronic obstructive pulmonary disease): Status: Acute Qualifiers: COPD type: emphysema Emphysema type: panlobular Qualified Code(s): J43.1 - Panlobular emphysema (8) Obesity: Status: Acute Qualifiers: Obesity type: unspecified obesity type Obesity classification: adult class 1 (BMI 30 - 34.9) (9) Dyslipidemia: Status: Acute (10) Smoker: Status: Acute (11) CHF (congestive heart failure): Status: Acute Qualifiers: Heart failure type: diastolic Heart failure chronicity: chronic Qualified Code(s): I50.32 - Chronic diastolic (congestive) heart failure Permanent problem details: Diastolic/Systolic EF 37% 12/14 Reason for Visit Reason for Visit: can't breathe Hospital Course Hospital Course Paloma Slater is a 82 year old female with a past medical history of CHF, history of CAD, history of atrial fibrillation/flutter, history of breast cancer status post bilateral mastectomy, history of COPD, current smoker, history of insulin-dependent type 2 diabetes mellitus, history of anemia, history of iron deficiency anemia who presents [facility] for increased shortness of breath.? Currently patient is alert to person, place, not to time, she is on BiPAP she is received Ativan, but she can follow commands.? Some of the history was obtained by patient, some from her daughters at bedside.? They tell me that patient for the last day has been feeling increasingly short of breath, short of breath with exertion, with a cough, no fevers, no chills.? She is a smoker but she has been cutting down her cigarette smoking.? She has extreme claustrophobia, and she does not like to be in the hospital, but patient is agreeable for admission, she is given Ativan for BiPAP, she does not use CPAP or BiPAP at home. Patient was admitted to [facility] for acute hypoxic hypercapnic respiratory failure secondary COPD exacerbation, and systolic diastolic CHF exacerbation, patient received steroid therapy, doxycycline therapy, Lasix therapy, clinically monitor. Patient overall clinically improved, discharged on prednisone burst, doxycycline, with close follow-up with primary care and pulmonary as outpatient Patient had paroxysmal atrial fibrillation during hospitalization, she was managed with p.o. Coreg, placed on heparin drip, hemoglobin remained stable, discharged on Coreg 6.25 twice daily, with Eliquis 5 mg twice daily. Patient was advised to monitor for bloody or black stools, if so go to emergency room, have her primary care provider recheck her hemoglobin in 1 week Physical Exam Const: COMMON NORMALS: no acute distress and patient oriented x3 Resp: COMMON NORMALS: normal respiratory effort, No retractions, No use of accessory muscles and clear to auscultation bilaterally AUSCULTATION: clear to auscultation bilaterally Cardio: COMMON NORMALS: regular rate, regular rhythm, S1 normal heart sound present and S2 normal heart sound present RATE: regular rate RHYTHM: regular rhythm HEART SOUNDS: S1 normal heart sound present and S2 normal heart sound present GI: COMMON NORMALS: Normal to inspection, nondistended, normoactive bowel sounds present and non-tender Extremity: COMMON NORMALS: no pedal edema Neuro: COMMON NORMALS: patient oriented x3 Psych: COMMON NORMALS: mental status grossly normal Discharge Data Studies Completed and Pending Completed Studies During Hospitalization Category Date Time Status XR chest 1V portable [id number] Stat Exams 02/15/23 13:59 Completed Pending at discharge Category Date Time Status Arterial Blood Gas W/O Coox AM LABS Lab 02/17/23 04:00 Ordered Arterial Blood Gas W/O Coox AM LABS Lab 02/18/23 04:00 Ordered Blood Culture Stat Lab 02/15/23 16:49 Results Occult Blood Stool [Immunochemical Fecal OCB] Routine Lab 02/15/23 15:58 Uncollected Sputum Culture and Gram Stain Stat Lab 02/15/23 05:45 Results CV. echo complete* [id number] Routine Ultrasound 02/16/23 06:00 Ordered Radiology Impressions Chest X-Ray 02/15/23 13:59 IMPRESSION: No acute findings. Laboratory Results WBC 7.8 10^3/uL (4.0-10.0) 02/16/23 03:40 RBC 3.92 10^6/uL (4.1-5.3) L 02/16/23 03:40 Hgb 11.0 g/dL (11.5-15.3) L 02/16/23 03:40 Hct 35.0 % (37.0-47.0) L 02/16/23 03:40 MCV 89.3 fl (81-99) 02/16/23 03:40 MCH 28.1 pg (28.0-34.0) 02/16/23 03:40 MCHC 31.4 g/dL (30.0-36.0) 02/16/23 03:40 RDW 13.9 % (12.1-15.1) 02/16/23 03:40 Plt Count 370 10^3/cmm (130-400) 02/16/23 03:40 MPV 10.3 fL (7.4-10.4) 02/16/23 03:40 Neut % (Auto) 91.3 % 02/16/23 03:40 Lymph % (Auto) 7.8 % 02/16/23 03:40 [place] % (Auto) 0.5 % 02/16/23 03:40 Eos % (Auto) 0.0 % 02/16/23 03:40 Baso % (Auto) 0.0 % 02/16/23 03:40 Neut # (Auto) 7.14 10^3/uL (1.8-7.7) 02/16/23 03:40 Lymph # (Auto) 0.6 10^3/uL (0.8-4.8) L 02/16/23 03:40 [place] # (Auto) 0.0 10^3/uL (0.2-0.9) L 02/16/23 03:40 Eos # (Auto) 0.0 10^3/uL (0.0-0.8) 02/16/23 03:40 Baso # (Auto) 0.0 10^3/uL (0.0-0.1) 02/16/23 03:40 Nucleated RBC % (auto) 0 % 02/16/23 03:40 Nucleated RBCs # 0.0 /100WBC 02/16/23 03:40 APTT 113.7 SECONDS (23.9-36.7) H D 02/16/23 03:40 Specimen Type Arterial 02/16/23 03:12 Sample Site Radial, right 02/16/23 03:12 ABG pH 7.40 (7.35-7.45) 02/16/23 03:12 ABG pCO2 51.2 mmHg (35-45) H 02/16/23 03:12 ABG pO2 92.5 mmHg (80.0-100.0) 02/16/23 03:12 ABG HCO3 31.5 mmol/L (22-26) H 02/16/23 03:12 ABG O2 Saturation 96.3 02/15/23 14:08 ABG Base Excess 5.6 mmol/L (-2.0-2.0) H 02/16/23 03:12 Carlos Alberto Test Pos 02/16/23 03:12 A-a O2 Gradient Not Reportable 02/15/23 14:08 Hematocrit 34.3 % (37-47) L 02/16/23 03:12 Hgb O2 Saturation 93.9 % (95-100) L 02/15/23 14:08 Carboxyhemoglobin 1.9 %THgb (0.4-20.1) 02/15/23 14:08 Methemoglobin 0.6 % (0.4-1.5) 02/15/23 14:08 Total Hemoglobin 11.2 g/dL (12-16) L 02/15/23 14:08 Sodium 140.0 mmol/L (131-143) 02/15/23 14:08 Potassium 3.9 mmol/L (3.5-5.0) 02/15/23 14:08 Glucose 143.0 mg/dL (70-115) H 02/15/23 14:08 Ionized Calcium 1.2 mmol/L (1.1-1.4) 02/15/23 14:08 O2 Delivery Device Nc 02/16/23 03:12 O2 Liters/Min 3.0 % 02/16/23 03:12 Sap Senior Developer ID [email or web address] 02/16/23 03:12 Sodium 138 mmol/L (136-145) 02/16/23 03:40 Potassium 3.8 mmol/L (3.5-5.1) 02/16/23 03:40 Chloride 99 mmol/L (98-107) 02/16/23 03:40 Carbon Dioxide 29 mmol/L (22-29) 02/16/23 03:40 Anion Gap 13.8 (5-19) 02/16/23 03:40 BUN 17 mg/dL (8-23) 02/16/23 03:40 Creatinine 1.2 mg/dL (0.5-0.9) H 02/16/23 03:40 GFR Calculation Not Reportable 02/16/23 03:40 Glucose 195 mg/dL (65-115) H 02/16/23 03:40 POC Glucose 205 mg/dL (70-110) H 02/16/23 06:18 Estimat Average Glucose 140 02/15/23 13:50 Hemoglobin A1c 6.5 % (4.0-6.0) H 02/15/23 13:50 Calculated Osmolality 293 mOsm/kg (285-295) 02/16/23 03:40 Calcium 8.3 mg/dL (8.5-10.5) L 02/16/23 03:40 Phosphorus 3.4 mg/dL (2.5-4.5) 02/16/23 03:40 Magnesium 1.6 mg/dL (1.7-2.3) L 02/16/23 03:40 Iron 60 ug/dL (37-145) 02/15/23 16:29 TIBC 301 mcg/dl 02/15/23 16:29 % Saturation 19.9 % (20-50) L 02/15/23 16:29 Unsat Iron Binding 241 ug/dL (112-347) 02/15/23 16:29 Ferritin 95 ng/mL (15-150) 02/15/23 16:29 Total Bilirubin 0.4 mg/dL (0.15-1.2) 02/15/23 13:50 AST 16 U/L (0-32) 02/15/23 13:50 ALT 13 U/L (0-33) 02/15/23 13:50 Alkaline Phosphatase 137 U/L (35-105) H 02/15/23 13:50 Troponin T Baseline 23 ng/L (0-10) H 02/15/23 13:50 Troponin T 120 Minute 32.11 ng/L (0-10) H 02/15/23 16:29 Delta Troponin T 9.11 ABS# (0-10) 02/15/23 16:29 Troponin T Hi Sens 6Hr 32.96 ng/L (0-10) H 02/15/23 21:53 Troponin T Hi Sens 6Hr Delta 9.96 ng/L (0-12) 02/15/23 21:53 C-Reactive Protein 14.2 mg/L (0.0-4.9) H 02/15/23 16:29 NT-Pro-B Natriuret Pep 4436 pg/mL (0-450) H 02/16/23 03:40 Total Protein 6.9 g/dL (6.6-8.7) 02/15/23 13:50 Albumin 3.6 g/dL (3.5-5.2) 02/15/23 13:50 Globulin 3.3 g/dL (1.3-4.6) 02/15/23 13:50 Procalcitonin 0.05 ng/mL (0-0.5) 02/15/23 16:29 TSH 3.08 uIU/mL (0.27-4.20) 02/15/23 16:29 Urine Color Yellow (Yellow) 02/16/23 05:47 Urine Appearance Clear (CLEAR) 02/16/23 05:47 Urine pH 5 (5-7) 02/16/23 05:47 Ur Specific [place] 1.015 (1.005-1.030) 02/16/23 05:47 Urine Protein Neg (Negative) 02/16/23 05:47 Urine Glucose (UA) Norm (Normal) 02/16/23 05:47 Urine Ketones Negative (Negative) 02/16/23 05:47 Urine Blood Neg (Negative) 02/16/23 05:47 Urine Nitrate Negative (Negative) 02/16/23 05:47 Urine Bilirubin Neg (Negative) 02/16/23 05:47 Urine Urobilinogen Neg mg/dL (Negative) 02/16/23 05:47 Ur Leukocyte Esterase Negative (Negative) 02/16/23 05:47 Vitals Last Vital Signs Temp 98.2 F 02/16/23 08:00 Pulse 73 02/16/23 08:00 Resp 18 02/16/23 08:33 BP 119/64 02/16/23 08:00 Pulse Ox 97 02/16/23 08:00 O2 Del Method 02/16/23 07:55 O2 Flow Rate 3 02/16/23 07:55 FiO2 30 02/16/23 00:42 Discharge Plan Discharge Patient Disposition: Home Condition: Stable Prescriptions: New doxycycline hyclate 100 mg tablet 100 mg PO BID 5 Days Qty: 10 0RF carvedilol 6.25 mg Tablet 6.25 mg PO BID 30 Days Qty: 60 0RF Eliquis 5 mg Tablet 5 mg PO Q12H 30 Days Qty: 60 0RF prednisone 20 mg tablet 20 mg PO BID 5 Days Qty: 10 0RF Continued mometasone 0.1 % solution 1 applic topical DAILY Qty: 60 3RF Rx Instructions: Apply a few drops to scalp daily as needed for itch. budesonide-formoterol [Symbicort] 160-4.5 mcg/actuation HFA aerosol inhaler 2 puff inhalation Q12H Qty: 10.2 2RF albuterol sulfate [Ventolin HFA] 90 mcg/actuation HFA aerosol inhaler 2 puff inhalation 6XD Qty: 8.5 0RF (DME) overnight oximetry See Rx Instructions .Route .MEDSUPPLY Qty: 1 0RF Rx Instructions: As directed (DME) FreeStyle [place] 14 Day Sensor Kit See Rx Instructions .Route Qty: 2 11RF Rx Instructions: As directed (DME) FreeStyle [place] 14 Day [place] Misc See Rx Instructions .Route Qty: 1 0RF Rx Instructions: As directed clopidogrel 75 mg tablet 75 mg PO DAILY 90 Days Qty: 90 3RF Hold Instructions: Resume on 05/07/21. Until seen by primary care, recheck CBC (DME) blood-glucose meter Misc See Rx Instructions .Route Qty: 1 0RF Rx Instructions: As directed with testing strips (DME) Blood Glucose Test Strip See Rx Instructions .Route Qty: 50 0RF Rx Instructions: As directed with glucose machine. (DME) pen needle, diabetic [TechLITE Pen Needle] 32 gauge x 5/32 needle See Rx Instructions .Route Qty: 100 0RF Rx Instructions: As directed glipizide 5 mg tablet 5 mg PO DAILY 90 Days Qty: 90 1RF potassium chloride 10 mEq capsule, extended release 10 meq PO BID Qty: 270 0RF atorvastatin 80 mg tablet 80 mg PO BEDTIME Qty: 90 3RF loratadine 10 mg tablet 10 mg PO DAILY Qty: 90 3RF (DME) breast prosthesis bilateral and bras x4 See Rx Instructions .Route .MEDSUPPLY Qty: 1 0RF Rx Instructions: As directed oxycodone 15 mg tablet 15 mg PO Q6H PRN (Reason: pain) 30 Days Qty: 120 0RF fluticasone propionate [Flonase Allergy Relief] 50 mcg/actuation spray,suspension 2 spray intranasal DAILY PRN (Reason: Nasal Congestion) Rx Instructions: administer into each nostril insulin glargine [Lantus Solostar U-100 Insulin] 100 unit/mL (3 mL) insulin pen 14 unit SUBCUT BEDTIME ondansetron 4 mg tablet,disintegrating 4 mg PO Q8H PRN (Reason: nausea and vomiting) Qty: 15 0RF famotidine 20 mg tablet 20 mg PO BID montelukast 10 mg tablet 10 mg PO DAILY furosemide 20 mg tablet 20 mg PO DAILY lisinopril 2.5 mg tablet 2.5 mg PO DAILY Discontinued carvedilol 3.125 mg tablet 3.125 mg PO BID Qty: 180 1RF Discharge Orders: Discharge Order (Routine); Ordered 02/16/23 Ordered By: Gurmeet Vega Referrals: Paul Bradshaw MD [Physician] - 1 week Jaxon Fernandes M.D [Physician] - 2 weeks Patti Irwin DO [Primary Care Provider] - Discharge Diet: Cardiac Discharge Activity: Resume usual activity Patient Instructions: Opioid Safety Activity Restrictions/Additional Instructions: - Please follow-up with primary care provider in 48 hours to recheck hemoglobin -Please follow-up with cardiology -Please follow-up with pulmonary Discharge Attestations Time Spent in Discharge Care*: greater than 30 min Quality Metrics Clinical Quality Measures [ No reported AMI, CVA or VTE this stay] Coding Level of Care Code 22172 Total time (in minutes) for Discharge: 40 Other Coding Information Prolonged care (total time indicated above or notated here) Diagnoses Acute and chronic respiratory failure with hypercapnia J96.22 COPD exacerbation J44.1 CHF exacerbation I50.9 Atrial fib/flutter, 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
== END 2023-02-16 12:30 | disposition home or self-care (01) | DRG 189 ==
LOC: ER 16:26 → MEDSURG 16:32
PROVIDERS: Hospitalist; Admitting Provider Family Medicine; Emergency Provider Family Medicine; PCP Family Medicine; Visit Provider Family Medicine
DX: J96.21 Acute and chronic respiratory failure with hypoxia (principal); I50.33 Acute on chronic diastolic (congestive) heart failure; J44.1 Chronic obstructive pulmonary disease with (acute) exacerbation; I13.0 Hypertensive heart and chronic kidney disease with heart failure and stage 1 through stage 4 chronic kidney disease, or unspecified chronic kidney disease; J96.22 Acute and chronic respiratory failure with hypercapnia; I48.0 Paroxysmal atrial fibrillation; N18.9 Chronic kidney disease, unspecified; E11.22 Type 2 diabetes mellitus with diabetic chronic kidney disease; D50.9 Iron deficiency anemia, unspecified; F17.210 Nicotine dependence, cigarettes, uncomplicated; E78.5 Hyperlipidemia, unspecified; E11.42 Type 2 diabetes mellitus with diabetic polyneuropathy; I25.10 Atherosclerotic heart disease of native coronary artery without angina pectoris; E66.9 Obesity, unspecified; Z68.34 Body mass index [BMI] 34.0-34.9, adult; Z79.84 Long term (current) use of oral hypoglycemic drugs; Z79.4 Long term (current) use of insulin; Z86.73 Personal history of transient ischemic attack (TIA), and cerebral infarction without residual deficits; Z85.3 Personal history of malignant neoplasm of breast; Z99.81 Dependence on supplemental oxygen
CPT/HCPCS: 36415; 36416; 36600; 71045; 80048; 80051; 80053; 81003; 82330; 82728; 82803; 82805; 82962; 83036; 83540; 83550; 83735; 83880; 84100; 84145; 84443; 84484; 85025; 85730; 86140; 87040; 87070; 87205; 87426; 87804; 93005; 93306; 94640; 94660; 94664; 94760; 94762; 96372; 96374; 96375; 96376; 99291; C9113; J1644; J1815; J1940; J2060; J2919; J2920; J2930; J3490; J7512; J7613; J7626; J7644

== ENCOUNTER 2023-02-19 05:18 | Inpatient (IN) | payer MEDICARE, SELFPAY ==
[2023-02-19] VITALS (61 sets, daily range): BP systolic 108–184; BP diastolic 51–137; PULSE 58–125; RESP 14–32; TEMP 36.2–36.8; O2SAT 73–100; BMI 33.6
--- NOTE | 2023-02-19 05:26 | XRR_ITS ---
PROCEDURE INFORMATION: Exam: XR Chest Exam date and time: 02/19/2023 5:30 AM Age: 82 years old Clinical indication: Cough and shortness of breath; Prior surgery; Surgery type: RT mastectomy. Gb. Patient HX: Cough with SOB. History of copd, chf, and breast cancer. TECHNIQUE: Imaging protocol: Radiologic exam of the chest. Views: 1 view. COMPARISON: CR (CHEST, ) 02/15/2023 2:07 PM FINDINGS: Lungs: Normal lung volumes. No interstitial or air space opacities seen. Pleural spaces: No pleural effusion. No pneumothorax. Heart/Mediastinum: Unchanged [id number] cardiomegaly There is a mildly tortuous thoracic aorta. Midline trachea. Bones/joints: No acute osseous abnormalities seen. Small degenerative osteophytes are seen throughout the thoracic spine. Mild shoulder degenerative changes are seen. Soft tissues: Multiple external densities are seen overlying the chest, limiting assessment. XR/XR chest 1V portable [id number] IMPRESSION: 1. No confluent infiltrates in the lungs. 2. Unchanged [id number] cardiomegaly.
--- NOTE | 2023-02-19 05:31 | ED_ITS ---
Documented by User: Paty Mosqueda MD 02/19/23 05:33 HPI - SOB/Dyspnea General: Chief Complaint: Shortness of Breath/Dyspnea Stated Complaint: SOB Time Seen by Provider: 02/19/23 05:26 Source: patient Mode of arrival: ambulatory Limitations: no limitations History of Present Illness: HPI Narrative: 82-year-old female who has a history of CHF COPD she is very well-known to ER she was recently admitted and discharged earlier this week. She states over the last 2 days she has been having much worse shortness of breath states she had a cough feels like her wheezing is increased she is typically on 3 L of oxygen at home she denies any fever denies any chest pain denies any worsening improving factors. Associated symptoms: Deny abdominal pain, chest pain, fever(s), nausea or vomiting Review of Systems Const: Denies: fever(s), chills, body aches or change in appetite Eyes: Denies: blurry vision or eye discomfort ENMT: Denies: throat pain or dental pain Card: Denies: chest pain Resp: Reports: dyspnea GI: Denies: abdominal pain, nausea, vomiting or diarrhea : Denies: dysuria Musc: Denies: neck pain or back pain Skin/Breast: Denies: rash Neuro: Denies: headache(s) Psych: Denies: depression Leonardo/Lymph: Denies: easy bruising All/Imm: Denies: urticaria PFSH ED PFSH: Medical History AAA (abdominal aortic aneurysm) Status post stent graft repair Anemia Atopic dermatitis B12 deficiency Breast CA Carotid artery disease CHF (congestive heart failure) Diastolic/Systolic EF 37% 12/14 Chronic kidney disease Chronic pain COPD (chronic obstructive pulmonary disease) CVA (cerebral vascular accident) Descending thoracic aortic 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, 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 Dyslipidemia History of COVID-12 Aug 2021 History of nonmelanoma skin cancer HTN (hypertension) Nicotine dependence, cigarettes, with unspecified nicotine-induced disorders Obesity Osteoporosis Pneumonia Renal artery stenosis Seasonal allergies Surgical History History of aortic aneurysm repair History of stent insertion of renal artery History of total mastectomy of left breast 04/[address] Vo at [place], [place] S/P cholecystectomy S/P hysterectomy S/P mastectomy (08/2009) Right modified radical mastectomy S/P tonsillectomy Family History Other Stroke Social History Smoking and tobacco status: current every day smoker cigarettes Packs smoked per day: 0.25 Alcohol intake: never Physical Exam Const: COMMON NORMALS: patient oriented x3 HENMT: COMMON NORMALS: normocephalic and atraumatic HEAD & SCALP: normocephalic and atraumatic Eye: COMMON NORMALS: Equal, round and reactive pupils present and EOMs intact bilaterally PUPIL: Yes Equal, round and reactive pupils present Neck/C-Spine: COMMON NORMALS: full ROM and supple Chest: COMMONS NORMALS: normal inspection of the chest and normal palpation of entire chest wall Resp: COMMON NORMALS: No retractions AUSCULTATION: wheezes Cardio: COMMON NORMALS: regular rhythm and No murmurs present (Cardio) RATE: tachycardic RHYTHM: regular rhythm GI: COMMON NORMALS: Normal to inspection, nondistended, normoactive bowel sounds present, Soft to palpation, non-tender and no masses PALPATION: Yes Soft to palpation Extremity: COMMON NORMALS: normal to inspection and full ROM Neuro: COMMON NORMALS: patient oriented x3, moves all extremities and no focal motor deficits Psych: COMMON NORMALS: mental status grossly normal, Normal thought process present and cooperative THOUGHT PROCESS: Normal thought process present Skin: COMMON NORMALS: no rashes or lesions noted and no wounds GENERAL SKIN EXAM: no rashes or lesions noted Course Vital Signs: Vital signs: Vital Signs Temperature 97.8 F 02/19/23 05:26 Pulse Rate 62 02/19/23 07:43 Respiratory Rate 19 H 02/19/23 07:15 Blood Pressure 133/59 02/19/23 07:15 Pulse Oximetry 97 02/19/23 07:43 Oxygen Delivery Me thod 02/19/23 06:00 Oxygen Flow Rate 4 02/19/23 06:00 Fraction of Inspir ed Oxygen 35 02/19/23 07:43 MDM - SOB/Dyspnea Lab Data 02/19/23 05:33 02/19/23 05:33 Labs/Radiology: Radiology Impressions Chest X-Ray 02/19/23 05:26 IMPRESSION: 1. No confluent infiltrates in the lungs. 2. Unchanged [id number]-[id number] cardiomegaly. Laboratory Results WBC 13.0 10^3/uL (4.0-10.0) H 02/19/23 05:33 RBC 4.07 10^6/uL (4.1-5.3) L 02/19/23 05:33 Hgb 11.6 g/dL (11.5-15.3) 02/19/23 05:33 Hct 36.7 % (37.0-47.0) L 02/19/23 05:33 MCV 90.2 fl (81-99) 02/19/23 05:33 MCH 28.5 pg (28.0-34.0) 02/19/23 05:33 MCHC 31.6 g/dL (30.0-36.0) 02/19/23 05:33 RDW 14.3 % (12.1-15.1) 02/19/23 05:33 Plt Count 445 10^3/cmm (130-400) H 02/19/23 05:33 MPV 10.4 fL (7.4-10.4) 02/19/23 05:33 Neut % (Auto) 86.4 % 02/19/23 05:33 Lymph % (Auto) 10.8 % 02/19/23 05:33 Tripp % (Auto) 2.2 % 02/19/23 05:33 Eos % (Auto) 0.1 % 02/19/23 05:33 Baso % (Auto) 0.1 % 02/19/23 05:33 Neut # (Auto) 11.19 10^3/uL (1.8-7.7) H 02/19/23 05:33 Lymph # (Auto) 1.4 10^3/uL (0.8-4.8) 02/19/23 05:33 Tripp # (Auto) 0.3 10^3/uL (0.2-0.9) 02/19/23 05:33 Eos # (Auto) 0.0 10^3/uL (0.0-0.8) 02/19/23 05:33 Baso # (Auto) 0.0 10^3/uL (0.0-0.1) 02/19/23 05:33 Nucleated RBC % (auto) 0 % 02/19/23 05:33 Nucleated RBCs # 0.0 /100WBC 02/19/23 05:33 Specimen Type Arterial 02/19/23 06:00 Sample Site Radial, right 02/19/23 06:00 ABG pH 7.31 (7.35-7.45) L 02/19/23 06:00 ABG pCO2 61.1 mmHg (35-45) H* 02/19/23 06:00 ABG pO2 136.0 mmHg (80.0-100.0) H 02/19/23 06:00 ABG HCO3 30.5 mmol/L (22-26) H 02/19/23 06:00 ABG Base Excess 2.8 mmol/L (-2.0-2.0) H 02/19/23 06:00 Carlos Alberto Test Pos 02/19/23 06:00 Hematocrit 36.3 % (37-47) L 02/19/23 06:00 Hgb O2 Saturation 97.4 % (95-100) 02/19/23 06:00 Carboxyhemoglobin 1.5 %THgb (0.4-20.1) 02/19/23 06:00 Methemoglobin 0.8 % (0.4-1.5) 02/19/23 06:00 Total Hemoglobin 11.9 g/dL (12-16) L 02/19/23 06:00 O2 Delivery Device Nc 02/19/23 06:00 O2 Liters/Min 2.0 % 02/19/23 06:00 Lead Generation Marketing Manager ID Anne Marie 02/19/23 06:00 Sodium 136 mmol/L (136-145) 02/19/23 05:33 Potassium 4.9 mmol/L (3.5-5.1) 02/19/23 05:33 Chloride 98 mmol/L (98-107) 02/19/23 05:33 Carbon Dioxide 29 mmol/L (22-29) 02/19/23 05:33 Anion Gap 13.9 (5-19) 02/19/23 05:33 BUN 20 mg/dL (8-23) 02/19/23 05:33 Creatinine 1.2 mg/dL (0.5-0.9) H 02/19/23 05:33 GFR Calculation Not Reportable 02/19/23 05:33 Glucose 247 mg/dL (65-115) H 02/19/23 05:33 Calculated Osmolality 293 mOsm/kg (285-295) 02/19/23 05:33 Calcium 9.2 mg/dL (8.5-10.5) 02/19/23 05:33 Total Bilirubin 0.4 mg/dL (0.15-1.2) 02/19/23 05:33 AST 13 U/L (0-32) 02/19/23 05:33 ALT 13 U/L (0-33) 02/19/23 05:33 Alkaline Phosphatase 112 U/L (35-105) H 02/19/23 05:33 Troponin T Baseline 19 ng/L (0-10) H 02/19/23 05:33 NT-Pro-B Natriuret Pep 4617 pg/mL (0-450) H 02/19/23 05:33 Total Protein 6.8 g/dL (6.6-8.7) 02/19/23 05:33 Albumin 3.7 g/dL (3.5-5.2) 02/19/23 05:33 Globulin 3.1 g/dL (1.3-4.6) 02/19/23 05:33 Influenza Type A Ag Negative (Negative) 02/19/23 05:35 Influenza Type B Ag Negative (Negative) 02/19/23 05:35 SARS-CoV-2 Ag (Rapid) negative (Negative) 02/19/23 05:35 Discharge Plan Discharge Patient Disposition: Admitted As Inpatient Clinical Impression: Acute on chronic respiratory failure with hypoxia and hypercapnia, Atrial fib/flutter, transient, Acute exacerbation of chronic obstructive airways disease, Congestive heart failure Condition: Stable Prescriptions: No Action mometasone 0.1 % solution 1 applic topical DAILY Qty: 60 3RF Rx Instructions: Apply a few drops to scalp daily as needed for itch. albuterol sulfate [Ventolin HFA] 90 mcg/actuation HFA aerosol inhaler 2 puff inhalation 6XD Qty: 8.5 0RF (DME) overnight oximetry See Rx Instructions .Route .MEDSUPPLY Qty: 1 0RF Rx Instructions: As directed budesonide-formoterol [Symbicort] 160-4.5 mcg/actuation HFA aerosol inhaler 2 puff inhalation Q12H Qty: 10.2 2RF (DME) FreeStyle [place]ell 14 Day Sensor Kit See Rx Instructions .Route Qty: 2 11RF Rx Instructions: As directed (DME) FreeStyle [place]ell 14 Day [place] Misc See Rx Instructions .Route Qty: 1 0RF Rx Instructions: As directed clopidogrel 75 mg tablet 75 mg PO DAILY 90 Days Qty: 90 3RF Hold Instructions: Resume on 05/07/21. Until seen by primary care, recheck CBC (DME) blood-glucose meter Misc See Rx Instructions .Route Qty: 1 0RF Rx Instructions: As directed with testing strips (DME) Blood Glucose Test Strip See Rx Instructions .Route Qty: 50 0RF Rx Instructions: As directed with glucose machine. (DME) pen needle, diabetic [TechLITE Pen Needle] 32 gauge x 5/32 needle See Rx Instructions .Route Qty: 100 0RF Rx Instructions: As directed glipizide 5 mg tablet 5 mg PO DAILY 90 Days Qty: 90 1RF potassium chloride 10 mEq capsule, extended release 10 meq PO BID Qty: 270 0RF atorvastatin 80 mg tablet 80 mg PO BEDTIME Qty: 90 3RF loratadine 10 mg tablet 10 mg PO DAILY Qty: 90 3RF (DME) breast prosthesis bilateral and bras x4 See Rx Instructions .Route .MEDSUPPLY Qty: 1 0RF Rx Instructions: As directed oxycodone 15 mg tablet 15 mg PO Q6H PRN (Reason: pain) 30 Days Qty: 120 0RF fluticasone propionate [Flonase Allergy Relief] 50 mcg/actuation spray,suspen amanda 2 spray intranasal DAILY PRN (Reason: Nasal Congestion) Rx Instructions: administer into each nostril insulin glargine [Lantus Solostar U-100 Insulin] 100 unit/mL (3 mL) insulin pen 14 unit SUBCUT BEDTIME ondansetron 4 mg tablet,disintegrating 4 mg PO Q8H PRN (Reason: nausea and vomiting) Qty: 15 0RF famotidine 20 mg tablet 20 mg PO BID montelukast 10 mg tablet 10 mg PO DAILY furosemide 20 mg tablet 20 mg PO DAILY lisinopril 2.5 mg tablet 2.5 mg PO DAILY carvedilol 6.25 mg Tablet 6.25 mg PO BID 30 Days Qty: 60 0RF Eliquis 5 mg Tablet 5 mg PO Q12H 30 Days Qty: 60 0RF doxycycline hyclate 100 mg tablet 100 mg PO BID 5 Days Qty: 10 0RF prednisone 20 mg tablet 20 mg PO BID 5 Days Qty: 10 0RF Referrals: Patti Irwin DO [Primary Care Provider] - Sign Out Sign Out Data: Patient Sign Out occurred on 02/19/23 at 06:03. Patient's care was discussed, and care was transferred from to Duran Roth DO. Coding Level of Care Code ED Jewel Bearing Driller for Chg Fwd Documented by User: Duran Roth DO 02/19/23 08:22 HPI - SOB/Dyspnea General: Chief Complaint: Shortness of Breath/Dyspnea Stated Complaint: SOB Time Seen by Provider: 02/19/23 05:26 PFSH ED 2 PFSH: Medical History AAA (abdominal aortic aneurysm) Status post stent graft repair Anemia Atopic dermatitis B12 deficiency Breast CA Carotid artery disease CHF (congestive heart failure) Diastolic/Systolic EF 37% 12/14 Chronic kidney disease Chronic pain COPD (chronic obstructive pulmonary disease) CVA (cerebral vascular accident) Descending thoracic aortic 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, 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 Dyslipidemia History of COVID-12 Aug 2021 History of nonmelanoma skin cancer HTN (hypertension) Nicotine dependence, cigarettes, with unspecified nicotine-induced disorders Obesity Osteoporosis Pneumonia Renal artery stenosis Seasonal allergies Surgical History History of aortic aneurysm repair History of stent insertion of renal artery History of total mastectomy of left breast 04/[address] Vo at [place], [place] S/P cholecystectomy S/P hysterectomy S/P mastectomy (08/2009) Right modified radical mastectomy S/P tonsillectomy Family History Other Stroke Social History Smoking and tobacco status: current every day smoker cigarettes Packs smoked per day: 0.25 Alcohol intake: never Course Vital Signs: Vital signs: Vital Signs Temperature 97.8 F 02/19/23 05:26 Pulse Rate 62 02/19/23 07:43 Respiratory Rate 19 H 02/19/23 07:15 Blood Pressure 133/59 02/19/23 07:15 Pulse Oximetry 97 02/19/23 07:43 Oxygen Delivery Me thod 02/19/23 06:00 Oxygen Flow Rate 4 02/19/23 06:00 Fraction of Inspir ed Oxygen 35 02/19/23 07:43 MDM - SOB/Dyspnea Medical Decision Making Patient care handoff received from Dr. Mosqueda continuation of ED evaluation. I personally saw and evaluated patient and reperformed lawson portions of E/M. Blood gas shows hypercapnic respiratory failure with mild respiratory acidosis. Some improvement with breathing treatments patient placed on BiPAP is not tolerating well she is given small dose of IV Ativan. Chest x-ray looks like there is slight increased pulmonary vascular congestion she is given Lasix. Discussed with hospitalist orders written. Note that during recent hospitalization patient had new onset A-fib flutter was started on rate control and Eliquis. Medical Records I reviewed the patient's medical records. Lab Data I reviewed the patient's lab results. 02/19/23 05:33 02/19/23 05:33 Labs/Radiology: Radiology Impressions Chest X-Ray 02/19/23 05:26 IMPRESSION: 1. No confluent infiltrates in the lungs. 2. Unchanged pcmf-ik-tbpdgdei cardiomegaly. Laboratory Results WBC 13.0 10^3/uL (4.0-10.0) H 02/19/23 05:33 RBC 4.07 10^6/uL (4.1-5.3) L 02/19/23 05:33 Hgb 11.6 g/dL (11.5-15.3) 02/19/23 05:33 Hct 36.7 % (37.0-47.0) L 02/19/23 05:33 MCV 90.2 fl (81-99) 02/19/23 05:33 MCH 28.5 pg (28.0-34.0) 02/19/23 05:33 MCHC 31.6 g/dL (30.0-36.0) 02/19/23 05:33 RDW 14.3 % (12.1-15.1) 02/19/23 05:33 Plt Count 445 10^3/cmm (130-400) H 02/19/23 05:33 MPV 10.4 fL (7.4-10.4) 02/19/23 05:33 Neut % (Auto) 86.4 % 02/19/23 05:33 Lymph % (Auto) 10.8 % 02/19/23 05:33 Tripp % (Auto) 2.2 % 02/19/23 05:33 Eos % (Auto) 0.1 % 02/19/23 05:33 Baso % (Auto) 0.1 % 02/19/23 05:33 Neut # (Auto) 11.19 10^3/uL (1.8-7.7) H 02/19/23 05:33 Lymph # (Auto) 1.4 10^3/uL (0.8-4.8) 02/19/23 05:33 Tripp # (Auto) 0.3 10^3/uL (0.2-0.9) 02/19/23 05:33 Eos # (Auto) 0.0 10^3/uL (0.0-0.8) 02/19/23 05:33 Baso # (Auto) 0.0 10^3/uL (0.0-0.1) 02/19/23 05:33 Nucleated RBC % (auto) 0 % 02/19/23 05:33 Nucleated RBCs # 0.0 /100WBC 02/19/23 05:33 Specimen Type Arterial 02/19/23 06:00 Sample Site Radial, right 02/19/23 06:00 ABG pH 7.31 (7.35-7.45) L 02/19/23 06:00 ABG pCO2 61.1 mmHg (35-45) H* 02/19/23 06:00 ABG pO2 136.0 mmHg (80.0-100.0) H 02/19/23 06:00 ABG HCO3 30.5 mmol/L (22-26) H 02/19/23 06:00 ABG Base Excess 2.8 mmol/L (-2.0-2.0) H 02/19/23 06:00 Carlos Alberto Test Pos 02/19/23 06:00 Hematocrit 36.3 % (37-47) L 02/19/23 06:00 Hgb O2 Saturation 97.4 % (95-100) 02/19/23 06:00 Carboxyhemoglobin 1.5 %THgb (0.4-20.1) 02/19/23 06:00 Methemoglobin 0.8 % (0.4-1.5) 02/19/23 06:00 Total Hemoglobin 11.9 g/dL (12-16) L 02/19/23 06:00 O2 Delivery Device Nc 02/19/23 06:00 O2 Liters/Min 2.0 % 02/19/23 06:00 Lead Generation Marketing Manager ID Anne Marie 02/19/23 06:00 Sodium 136 mmol/L (136-145) 02/19/23 05:33 Potassium 4.9 mmol/L (3.5-5.1) 02/19/23 05:33 Chloride 98 mmol/L (98-107) 02/19/23 05:33 Carbon Dioxide 29 mmol/L (22-29) 02/19/23 05:33 Anion Gap 13.9 (5-19) 02/19/23 05:33 BUN 20 mg/dL (8-23) 02/19/23 05:33 Creatinine 1.2 mg/dL (0.5-0.9) H 02/19/23 05:33 GFR Calculation Not Reportable 02/19/23 05:33 Glucose 247 mg/dL (65-115) H 02/19/23 05:33 Calculated Osmolality 293 mOsm/kg (285-295) 02/19/23 05:33 Calcium 9.2 mg/dL (8.5-10.5) 02/19/23 05:33 Total Bilirubin 0.4 mg/dL (0.15-1.2) 02/19/23 05:33 AST 13 U/L (0-32) 02/19/23 05:33 ALT 13 U/L (0-33) 02/19/23 05:33 Alkaline Phosphatase 112 U/L (35-105) H 02/19/23 05:33 Troponin T Baseline 19 ng/L (0-10) H 02/19/23 05:33 NT-Pro-B Natriuret Pep 4617 pg/mL (0-450) H 02/19/23 05:33 Total Protein 6.8 g/dL (6.6-8.7) 02/19/23 05:33 Albumin 3.7 g/dL (3.5-5.2) 02/19/23 05:33 Globulin 3.1 g/dL (1.3-4.6) 02/19/23 05:33 Influenza Type A Ag Negative (Negative) 02/19/23 05:35 Influenza Type B Ag Negative (Negative) 02/19/23 05:35 SARS-CoV-2 Ag (Rapid) negative (Negative) 02/19/23 05:35 Discharge Plan Discharge Patient Disposition: Admitted As Inpatient Clinical Impression: Acute on chronic respiratory failure with hypoxia and hypercapnia, Atrial fib/flutter, transient, Acute exacerbation of chronic obstructive airways disease, Congestive heart failure Condition: Stable Prescriptions: No Action mometasone 0.1 % solution 1 applic topical DAILY Qty: 60 3RF Rx Instructions: Apply a few drops to scalp daily as needed for itch. albuterol sulfate [Ventolin HFA] 90 mcg/actuation HFA aerosol inhaler 2 puff inhalation 6XD Qty: 8.5 0RF (DME) overnight oximetry See Rx Instructions .Route .MEDSUPPLY Qty: 1 0RF Rx Instructions: As directed budesonide-formoterol [Symbicort] 160-4.5 mcg/actuation HFA aerosol inhaler 2 puff inhalation Q12H Qty: 10.2 2RF (DME) FreeStyle [place] 14 Day Sensor Kit See Rx Instructions .Route Qty: 2 11RF Rx Instructions: As directed (DME) FreeStyle [place] 14 Day [place] Misc See Rx Instructions .Route Qty: 1 0RF Rx Instructions: As directed clopidogrel 75 mg tablet 75 mg PO DAILY 90 Days Qty: 90 3RF Hold Instructions: Resume on 05/07/21. Until seen by primary care, recheck CBC (DME) blood-glucose meter Misc See Rx Instructions .Route Qty: 1 0RF Rx Instructions: As directed with testing strips (DME) Blood Glucose Test Strip See Rx Instructions .Route Qty: 50 0RF Rx Instructions: As directed with glucose machine. (DME) pen needle, diabetic [TechLITE Pen Needle] 32 gauge x 5/32 needle See Rx Instructions .Route Qty: 100 0RF Rx Instructions: As directed glipizide 5 mg tablet 5 mg PO DAILY 90 Days Qty: 90 1RF potassium chloride 10 mEq capsule, extended release 10 meq PO BID Qty: 270 0RF atorvastatin 80 mg tablet 80 mg PO BEDTIME Qty: 90 3RF loratadine 10 mg tablet 10 mg PO DAILY Qty: 90 3RF (DME) breast prosthesis bilateral and bras x4 See Rx Instructions .Route .MEDSUPPLY Qty: 1 0RF Rx Instructions: As directed oxycodone 15 mg tablet 15 mg PO Q6H PRN (Reason: pain) 30 Days Qty: 120 0RF fluticasone propionate [Flonase Allergy Relief] 50 mcg/actuation spray,suspension 2 spray intranasal DAILY PRN (Reason: Nasal Congestion) Rx Instructions: administer into each nostril insulin glargine [Lantus Solostar U-100 Insulin] 100 unit/mL (3 mL) insulin pen 14 unit SUBCUT BEDTIME ondansetron 4 mg tablet,disintegrating 4 mg PO Q8H PRN (Reason: nausea and vomiting) Qty: 15 0RF famotidine 20 mg tablet 20 mg PO BID montelukast 10 mg tablet 10 mg PO DAILY furosemide 20 mg tablet 20 mg PO DAILY lisinopril 2.5 mg tablet 2.5 mg PO DAILY carvedilol 6.25 mg Tablet 6.25 mg PO BID 30 Days Qty: 60 0RF Eliquis 5 mg Tablet 5 mg PO Q12H 30 Days Qty: 60 0RF doxycycline hyclate 100 mg tablet 100 mg PO BID 5 Days Qty: 10 0RF prednisone 20 mg tablet 20 mg PO BID 5 Days Qty: 10 0RF Referrals: Patti Irwin DO [Primary Care Provider] - Sign Out Sign Out Data: Patient Sign Out occurred on 02/19/23 at 06:03. Patient's care was discussed, and care was transferred from to Duran Roth DO. Coding Level of Care Code ED Jewel Bearing Driller for Betty Vela
--- NOTE | 2023-02-19 05:37 | ECG_ITS ---
[facility] Test Date: 2023-02-19 Pat Name: Paloma Slater Department: Room: Gender: Female Insecticide Supervisor: : 1940 Requested By: Paty Mosqueda Order Number: [id number] Latisha MD: Jazmín Aguiar M.D. Measurements Intervals [place] Rate: 103 P: 0 NC: 0 QRS: 141 QRSD: 155 T: 37 QT: 382 QTc: 502 Interpretive Statements ATRIAL FIBRILLATION WITH RAPID VENTRICULAR RESPONSE RIGHT AXIS DEVIATION [QRS AXIS > 100] INTRAVENTRICULAR CONDUCTION DELAY [130+ ms QRS DURATION] Compared to ECG 02/15/2023 17:40:15 Right-axis deviation now present Intraventricular conduction delay now present Sinus rhythm no longer present Left-axis deviation no longer present Left bundle-branch block no longer present Electronically Signed On 02-19-2023 23:51:43 CDT by Jazmín Aguiar M.D. [id number]
--- NOTE | 2023-02-19 05:39 | ECG_ITS ---
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 Measurements Intervals [place] Rate: 102 P: 0 UT: 0 QRS: 135 QRSD: 153 T: 50 QT: 379 QTc: 495 Interpretive Statements ATRIAL FIBRILLATION WITH RAPID VENTRICULAR RESPONSE RIGHT AXIS DEVIATION [QRS AXIS > 100] INTRAVENTRICULAR CONDUCTION DELAY [130+ ms QRS DURATION] Compared to ECG 02/19/2023 05:37:59 No significant changes Electronically Signed On 02-19-2023 23:51:48 CDT by Jazmín Aguiar M.D. [id number]
[2023-02-19 05:43] LABS: Basophils % 0.1 %; Eosinophils % 0.1 %; Hematocrit 36.7 % (37.0-47.0); Hemoglobin 11.6 g/dL (11.5-15.3); Lymphocytes # 1.4 10^3/uL (0.8-4.8); Lymphocytes % 10.8 %; Mean Corpuscular HGB Conc 31.6 g/dL (30.0-36.0); Mean Corpuscular Hemoglobin 28.5 pg (28.0-34.0); Mean Corpuscular Volume 90.2 fl (81-99); Mean Platelet Volume 10.4 fL (7.4-10.4); Monocytes # 0.3 10^3/uL (0.2-0.9); Monocytes % 2.2 %; Neutrophils # 11.19 10^3/uL (1.8-7.7); Neutrophils % 86.4 %; Nucleated Red Blood Cells % 0 %; Platelet Count 445 10^3/cmm (130-400); Red Blood Count 4.07 10^6/uL (4.1-5.3); Red Cell Distribution Width 14.3 % (12.1-15.1)
[2023-02-19] MEDS: ipratropium 0.5 mg/2.5 mL Neb INHALATION (05:45)
[2023-02-19] MEDS: albuterol 2.5 mg/3 mL Neb INHALATION (05:45)
[2023-02-19 06:08] LABS: SARS Covid-2 Antigen negative (Negative)
[2023-02-19 06:10] LABS: ABG PH Result 7.31 (7.35-7.45); Arterial Blood Gas Hematocrit 36.3 % (37-47); Base Excess ABG 2.8 mmol/L (-2.0-2.0); Blood Gas Allen Test Pos; Blood Gas Sample Site Radial, right; Blood Gas Sample Type Arterial; Carboxyhemoglobin 1.5 %THgb (0.4-20.1); HCO3 ABG 30.5 mmol/L (22-26); HGB O2 Sat 97.4 % (95-100); Methemoglobin 0.8 % (0.4-1.5); Oxygen Device NC; Total Hemoglobin 11.9 g/dL (12-16)
[2023-02-19 06:11] LABS: ABG PCO2 61.1 mmHg (35-45)
[2023-02-19 06:28] LABS: Alanine Aminotransferase 13 U/L (0-33); Albumin Level 3.7 g/dL (3.5-5.2); Alkaline Phosphatase 112 U/L (35-105); Anion Gap 13.9 (5-19); Aspartate Amino Transferase 13 U/L (0-32); Blood Urea Nitrogen 20 mg/dL (8-23); Calcium 9.2 mg/dL (8.5-10.5); Carbon Dioxide 29 mmol/L (22-29); Chloride 98 mmol/L (98-107); Globulin 3.1 g/dL (1.3-4.6); Glucose 247 mg/dL (65-115); NT Pro B Type Natriuretic Pept 4617 pg/mL (0-450); Osmolality Calculated 293 mOsm/kg (285-295); Potassium 4.9 mmol/L (3.5-5.1); Sodium 136 mmol/L (136-145); Total Bilirubin 0.4 mg/dL (0.15-1.2); Total Protein 6.8 g/dL (6.6-8.7)
[2023-02-19 06:36] LABS: Influenza A by IFA Negative (Negative); Influenza B by IFA Negative (Negative)
[2023-02-19] MEDS: LORazepam 2 mg/mL INJ 1 mL 1 MG IVP (06:37)
[2023-02-19] MEDS: FUROsemide 10 mg/mL SDV 4mL 40 MG IVP ×2 (06:40→20:18)
--- NOTE | 2023-02-19 07:07 | PC.NURSE ---
pt resting in bed, on BiPAP. connected to VS and bedside property assessment monitor. Physician at bedside updating pt on plan of care regarding admission. pt lung sounds clear, answering questions appropriately. adjusted bed and pillow for comfort. call light within reach.
--- NOTE | 2023-02-19 07:07 | PC.PHAR ---
Addendum entered by Rosalind Valdez 02/19/23 09:14: pts daughter brought in pts meds-daughter states the pt has been taking the carvedilol 6.25mg bid (in bottle) and 3.125mg bid that is in pill pack 3.125mg bid dose was suppose to be dced - said to just enter 6.25mg bid because hes going to continue that dose-pts daughter didnt bring in eliquis 5mg q12h florentino states rx was picked up on 02/16/23 pts daughter states the meds she brought in is the only meds the pt takes besides the lantus she didnt bring in or the pts oxycodone 15mg q6h prn filled 02/12/23 30d/s didnt bring in or the pts inhalers werent brought in-notes are made in the pharmacy comments Original Note: pt states her daughter nandini [phone] takes care of her medications-nandini states she will bring the pts medications in around 9 states she has her sister at the [facility] and cant bring them till around 9
[2023-02-19 07:14] LABS: Troponin(5th) Baseline 19 ng/L (0-10)
--- NOTE | 2023-02-19 07:23 | PC.NURSE ---
pt was found out of bed, bed rails were still up. pt remained connected to VS monitor and BiPAP. pt stating she needed to use the restroom. pt redirected to sit in chair until bedside commode could be brought to her. educated pt on elevated fall risk and to push call light and wait for staff assistance before getting out of bed. pt assisted to bedside commode and back to bed. reminded pt again to utilize call light and to wait for staff assistance to get up due to fall risk. pt verbalized understanding. call light within reach.
--- NOTE | 2023-02-19 08:12 | PM.HP ---
Providers/Chief Complaint Admitting Physician: Esdras Castañeda MD Primary Care Provider: Patti Irwin DO Chief Complaint: SOB History of Present Illness Paloma Slater is a 82 year old female presenting to the hospital with shortness of breath. History is very difficult at this time as she is on BIPAP and has received Ativan. From the patient and the ED I have been able to delineate that she has been coughing and wheezing more in the last 24 hours. Occasionally productive of sputum. Turned her oxygen up to 3 1/2 L from 3 L . No fever. Denies any vomiting, diarrhea. Reports she decided to quit smoking several days ago. In the emergency department she received a dose of Lasix, and albuterol and Atrovent treatment, 1 dose of lorazepam, and Solu-Medrol. Review of Systems General: Reports: Other (Difficult to obtain secondary to BiPAP, Ativan) Medications/Allergies Home Medications Medication Instructions Recorded Confirmed Last Taken Type flash glucose scanning reader #1 ea 03/04/22 02/17/23 Unknown Rx (FreeStyle [employer]) flash glucose sensor (FreeStyle #2 ea 03/04/22 02/17/23 Unknown Rx [employer] 14 Day Sensor kit) blood sugar diagnostic (Blood #50 ea 03/06/22 02/17/23 Unknown Rx Glucose Test strips) blood-glucose meter #1 ea 03/06/22 02/17/23 Unknown Rx pen needle, diabetic 32 gauge x #100 ea 04/12/22 02/17/23 Unknown Rx 5/32 (TechLITE Pen Needle) fluticasone propionate 50 2 spray intranasal DAILY PRN Nasal 06/27/22 02/17/23 02/15/23 History mcg/actuation nasal Congestion spray,suspension (Flonase Allergy Relief) insulin glargine 100 unit/mL (3 14 unit SUBCUT BEDTIME 06/27/22 02/17/23 02/14/23 History mL) subcutaneous pen (Lantus Solostar U-100 Insulin) ondansetron 4 mg disintegrating 4 mg PO Q8H PRN nausea and 06/27/22 02/17/23 Unknown Rx tablet vomiting #15 tabs potassium chloride 10 mEq 10 meq PO BID #270 caps 10/31/22 02/17/23 02/15/23 Rx capsule,extended release overnight oximetry #1 ea 12/17/22 02/17/23 Unknown Rx atorvastatin 80 mg tablet 80 mg PO BEDTIME #90 tabs 12/26/22 02/17/23 02/14/23 Rx breast prosthesis bilateral and #1 ea 02/05/23 02/17/23 Unknown Rx bras x4 oxycodone 15 mg tablet 15 mg PO Q6H PRN pain 30 days #120 02/11/23 02/17/23 Unknown Rx tabs famotidine 20 mg tablet 20 mg PO BID 02/15/23 02/17/23 02/15/23 History furosemide 20 mg tablet 20 mg PO DAILY 02/15/23 02/17/23 02/15/23 History lisinopril 2.5 mg tablet 2.5 mg PO DAILY 02/15/23 02/17/23 02/15/23 History montelukast 10 mg tablet 10 mg PO DAILY 02/15/23 02/17/23 02/15/23 History apixaban 5 mg tablet (Eliquis) 5 mg PO Q12H 30 days #60 tabs 02/16/23 02/17/23 Unknown Rx carvedilol 6.25 mg tablet 6.25 mg PO BID 30 days #60 tabs 02/16/23 02/17/23 Unknown Rx doxycycline hyclate 100 mg tablet 100 mg PO BID 5 days #10 tabs 02/16/23 02/17/23 Unknown Rx prednisone 20 mg tablet 20 mg PO BID 5 days #10 tabs 02/16/23 02/17/23 Unknown Rx budesonide-formoterol HFA 160 2 puff inhalation Q12H #10.2 grams 02/17/23 02/17/23 Unknown Rx mcg-4.5 mcg/actuation aerosol inhaler (Symbicort) albuterol sulfate 90 mcg/actuation 2 puff inhalation 6XD PRN 02/19/23 02/19/23 Unknown History aerosol inhaler (Ventolin HFA) Shortness Of Breath clopidogrel 75 mg tablet 75 mg PO BEDTIME 02/19/23 02/19/23 Unknown History diphenhydramine HCl 25 mg capsule 25 mg PO BEDTIME 02/19/23 02/19/23 Unknown History (Benadryl) glipizide 5 mg tablet 5 mg PO QAM 02/19/23 02/19/23 Unknown History loratadine 10 mg tablet 10 mg PO QAM 02/19/23 02/19/23 Unknown History mometasone 0.1 % topical solution 1 applic topical DAILY PRN Itching 02/19/23 02/19/23 Unknown History Allergies Allergy/AdvReac Type Severity Reaction Status Date / Time adhesive tape Allergy Unknown Unknown Verified 02/17/23 10:25 bacitracin Allergy Unknown Unknown Verified 02/17/23 10:25 [From Neosporin ([id number])] codeine Allergy Unknown Unknown Verified 02/17/23 10:25 neomycin Allergy Unknown Unknown Verified 02/17/23 10:25 [From Neosporin ([id number])] penicillamine Allergy Unknown Unknown Verified 02/17/23 10:25 Penicillins Allergy Unknown Unknown Verified 02/17/23 10:25 polymyxin B Allergy Unknown Unknown Verified 02/17/23 10:25 [From Neosporin ([id number])] prochlorperazine Allergy Unknown Unknown Verified 02/17/23 10:25 [From Compazine] Sulfa (Sulfonamide Allergy Unknown Unknown Verified 02/17/23 10:25 Antibiotics) PFSH Acute PFSH: Medical History (Updated 02/19/23 @ 08:29 by Esdras Castañeda MD) AAA (abdominal aortic aneurysm) Status post stent graft repair Anemia Atopic dermatitis B12 deficiency Breast CA Carotid artery disease CHF (congestive heart failure) Diastolic/Systolic EF 37% 12/14 Chronic kidney disease Chronic pain COPD (chronic obstructive pulmonary disease) CVA (cerebral vascular accident) Descending thoracic aortic 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, 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 Dyslipidemia History of COVID-12 Aug 2021 History of nonmelanoma skin cancer HTN (hypertension) Nicotine dependence, cigarettes, with unspecified nicotine-induced disorders Obesity Osteoporosis Pneumonia Renal artery stenosis Seasonal allergies Surgical History History of aortic aneurysm repair History of stent insertion of renal artery History of total mastectomy of left breast 04/[address] Vo at [place], [place] S/P cholecystectomy S/P hysterectomy S/P mastectomy (08/2009) Right modified radical mastectomy S/P tonsillectomy Family History Other Stroke Social History Smoking and tobacco status: current every day smoker cigarettes Packs smoked per day: 0.25 Alcohol intake: never Vitals/I&O/Wt Last Vital Signs Temp 97.8 F 02/19/23 05:26 Pulse 62 02/19/23 07:43 Resp 19 H 02/19/23 07:15 BP 133/59 02/19/23 07:15 Pulse Ox 97 02/19/23 07:43 O2 Del Method 02/19/23 06:00 O2 Flow Rate 4 02/19/23 06:00 FiO2 35 02/19/23 07:43 Weight last 48 hrs Weight 83.461 kg Physical Exam Narrative: General exam no distress HEENT: Pupils equally round. Oropharynx not examined secondary to BiPAP Neck is supple no lymphadenopathy or thyromegaly Cardiovascular irregular, irregular. No obvious murmur Lungs diminished breath sounds bilaterally. No crackles Abdomen is soft with positive bowel sounds. No obvious organomegaly exams deferred Extremities 1+ edema. No cyanosis or clubbing Data 02/19/23 05:33 02/19/23 05:33 Other Labs: ABG demonstrates a pH of 7.31, PCO2 of 61, PO2 of 136. I believe this was done on 2 L. LFTs normal with exception of alk phos of 112 Troponin baseline 19 BNP 4617 Influenza COVID rapid negative Chest x-ray cardiomegaly, no infiltrate by my read Previous echocardiogram March 2021 demonstrated an EF of 35 to 40% Previous nuclear imaging 05/14 demonstrated no reversible defects EKG by my read demonstrates A-fib, intraventricular conduction today, right axis deviation, heart rate was around 100 A&P Assessment and plan (1) COPD (chronic obstructive pulmonary disease): Patient presents with an acute COPD exacerbation. She has received IV steroids in the emergency department Continue 60 mg of Solu-Medrol every 12 hours Continue doxycycline. Budesonide twice daily, DuoNeb every 4 hours Wean BiPAP off as tolerated Oxygen supplementation to keep saturation approximately 88 to 92% considering her CO2 retention. More oxygen than needed could worsen CO2 retention increasing potential confusion. I am concerned somewhat regarding compliance as some medications were not filled from last hospital stay. I have called family but have not been able to make contact at this time. Qualifiers: COPD type: emphysema Emphysema type: panlobular Qualified Code(s): J43.1 - Panlobular emphysema (2) Atrial fib/flutter, transient: Patient diagnosed with atrial fibrillation at last hospital stay Continue carvedilol Continue anticoagulation Telemetry (3) CHF (congestive heart failure): Patient has some evidence of acute congestive heart failure with peripheral edema, elevated BNP, chest x-ray findings, shortness of breath She was given Lasix in the emergency department, continue every 12 hours Repeat echocardiogram Close follow-up of BMP regarding renal function considering IV Lasix and that she has underlying chronic kidney disease Considered dapagliflozin Qualifiers: Heart failure type: diastolic Heart failure chronicity: chronic Qualified Code(s): I50.32 - Chronic diastolic (congestive) heart failure (4) Diabetes 1.5, managed as type 2: sliding scale insulin will be initiated (5) Acute respiratory failure with hypercapnia: See findings under COPD exacerbation Plan Acute encephalopathy. She has some mild confusion currently. This may be secondary to Ativan or CO2 retention. We will follow this clinically. Check urinalysis Multiple other medical problems as outlined in past medical history full code currently Eliquis will suffice for DVT prophylaxis Attestations Medical Necessity Statement*: Will need greater than 2 midnight stay for evaluation of acute COPD exacerbation. Diagnoses COPD (chronic obstructive pulmonary disease) J43.1 COPD type: emphysema Emphysema type: panlobular Atrial fib/flutter, transient CHF (congestive heart failure) I50.32 Heart failure type: diastolic Heart failure chronicity: chronic Diabetes 1.5, managed as type 2 E13.9 Acute respiratory failure with hypercapnia J96.02 Time Spent (min) 43
--- NOTE | 2023-02-19 08:34 | USCV_ITS ---
Paloma Slater Age: 82 Gender: F : 1940 Exam Date: 02/19/2023 10:20 Ordering Phys: Esdras Castañeda MD Technologist: INOCENCIA [place] [facility] [place]: sob BP: 131 / 51 HR: 69 Rhythm: Other Technical Quality: Adequate MEASUREMENTS (Male / Female) Normal Values 2D ECHO LV Diastolic Diameter PLAX 3.8 cm 4.2 - 5.9 / 3.9 - 5.3 cm LV Systolic Diameter PLAX 2.6 cm IVS Diastolic Thickness 1.3 cm 0.6 - 1.0 / 0.6 - 0.9 cm IVS Systolic Thickness 2.0 cm LVPW Diastolic Thickness 1.1 cm 0.6 - 1.0 / 0.6 - 0.9 cm LVPW Systolic Thickness 1.1 cm LVOT Diameter 2.0 cm LV Ejection Fraction 2D Teich 59.5 % LV Ejection Fraction MOD 2C 47.0 % LV Ejection Fraction 2C AL 46.1 % LA Diameter 3.9 cm LA Width 4.3 cm LA Height 5.3 cm RA Width 3.8 cm RA Height 5.1 cm Aorta at Sinotubular Diameter 2.9 cm IVC Diameter 2.2 cm M-MODE MV E Point Septal Separation 1.3 cm DOPPLER AV Peak Velocity 103.0 cm/s LVOT Peak Velocity 74.0 cm/s AV Area Cont Eq vti 2.1 cm squared AV Area Cont Eq pk 2.3 cm squared MV Peak Velocity 175.0 cm/s MV Area PHT 5.8 cm squared Mitral E to A Ratio 1.3 MV E' Velocity 56.5 cm/s Mitral E to MV E' Ratio 28.2 Mitral E to LV E' Lateral Ratio 19.1 Mitral E to LV E' Septal Ratio 53.6 TR Peak Velocity 211.0 cm/s TR Peak Gradient 17.8 mmHg Right Atrial Pressure 3.0 mmHg Pulmonary Artery Systolic Pressu 20.8 mmHg RV Acceleration Time 0.1 s RV Ejection Time 0.3 s RV AcT/ET 0.4 FINDINGS Left Ventricle Left ventricle is normal in size. LV systolic function is normal with EF of 50 to 55%. No regional wall motion abnormalities are seen. Right Ventricle Normal in size and function Right Atrium Normal in size Left Atrium Dilated Mitral Valve Severe mitral annular calcification. Mild to moderate mitral regurgitation. Aortic Valve Grossly normal. No significant stenosis or regurgitation. Tricuspid Valve Trace tricuspid regurgitation. Insufficient TR jet to calculate RVSP Pulmonic Valve Not well visualized Pericardium Normal Aorta Normal in size IVC Appears to be normal CONCLUSIONS LV systolic function is normal with EF of 50-55% Left atrial dilation Severe mitral annular calcification. Mild to moderate mitral regurgitation Trace tricuspid regurgitation Compared to prior echocardiogram from 2020, LV systolic function has improved. Jaxon Fernandes MD (Electronically Signed) Final Date: 19 February 2023 16:51 S
[2023-02-19 08:48] LABS: Troponin 5 2HR 23.51 ng/L (0-10)
[2023-02-19 08:50] LABS: Troponin 5 2HR Delta 4.51 ABS# (0-10)
[2023-02-19] MEDS: famotidine 20 mg Tablet PO ×2 (09:21→17:45)
[2023-02-19] MEDS: doxycycline 100 mg Tablet PO ×2 (09:21→17:45)
[2023-02-19] MEDS: apixaban 5 mg Tablet PO ×2 (09:22→17:45)
[2023-02-19] MEDS: potassium chloride ER 10 mEq Tablet PO ×2 (09:22→17:45)
[2023-02-19] MEDS: budesonide 0.5 mg/2 mL Neb INHALATION (09:23)
[2023-02-19] MEDS: carvedilol 6.25 mg Tablet PO ×2 (09:23→17:45)
[2023-02-19] MEDS: ipratropium-albuterol 3 mL Neb INHALATION ×3 (09:23→15:17)
--- NOTE | 2023-02-19 09:25 | PC.NURSE ---
entered room to administered PO medications, pt climbing out of bed to use restroom. assisted pt to bedside commode and back into bed. Pt able to tolerate drinking water without difficulty, PO medications administered. RT at bedside for breathing treatment. Bedrails up x2, call light within reach. nonskid socks on pt
--- NOTE | 2023-02-19 09:27 | PC.NURSE ---
pt is oriented to person, place, and time.
--- NOTE | 2023-02-19 09:35 | PC.NURSE ---
Spoke with Dr. Castañeda regarding pt is oriented to person, place, and time. That pt states she has to go to the bathroom frequently and urgently due to taking lasix. Pt able to answer questions appropriately and appears to be self aware. Per Dr. Castañeda, admit pt to Med Surg with telemetry instead of CSU and to monitor her closely due to fall risk. Once on med surg, if a sitter is needed, instructed to call Dr. Castañeda.
--- NOTE | 2023-02-19 11:02 | ECG_ITS ---
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 Measurements Intervals [place] Rate: 73 P: -83 OR: 158 QRS: 6 QRSD: 158 T: 109 QT: 463 QTc: 513 Interpretive Statements Possible ECTOPIC ATRIAL RHYTHM LEFT BUNDLE BRANCH BLOCK [120+ ms QRS DURATION, 80+ ms Q/S IN V1/V2, 85+ ms R IN I/aVL/V5/V6] Compared to ECG 02/19/2023 05:39:52 Ectopic atrial rhythm now present Left bundle-branch block now present Atrial fibrillation no longer present Right-axis deviation no longer present Intraventricular conduction delay no longer present Electronically Signed On 02-19-2023 23:58:58 CDT by Jazmín Aguiar M.D. [id number]
[2023-02-19 12:20] LABS: Troponin 5 6HR 26.37 ng/L (0-10)
[2023-02-19 12:21] LABS: Troponin 5 6HR Delta 7.37 ng/L (0-12)
--- NOTE | 2023-02-19 12:44 | PC.NURSE ---
attempted to call report to CSU, room is not clean yet and nurse unavailable
--- NOTE | 2023-02-19 12:53 | PC.NURSE ---
report called to [facility] on CSU
--- NOTE | 2023-02-19 14:01 | ECG_ITS ---
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 Measurements Intervals [place] Rate: 63 P: -53 TN: 206 QRS: 98 QRSD: 154 T: 64 QT: 478 QTc: 491 Interpretive Statements SINUS RHYTHM BORDERLINE RIGHT AXIS DEVIATION [QRS AXIS > 90] INTRAVENTRICULAR CONDUCTION DELAY [130+ ms QRS DURATION] Compared to ECG 02/19/2023 11:02:03 Intraventricular conduction delay now present Ectopic atrial rhythm no longer present Left bundle-branch block no longer present Electronically Signed On 02-19-2023 23:59:26 CDT by Jazmín Aguiar M.D. [id number]
[2023-02-19 15:22] LABS: Add Urine Microscopic? NO; Charge for UA Resulting for Rev
[2023-02-19 15:30] LABS: Bilirubin Urine Neg (Negative); Blood Urine Neg (Negative); Glucose Urine UA Norm (Normal); Ketones Urine Negative (Negative); Leukocyte Esterase Urine Negative (Negative); Nitrate Urine Negative (Negative); Protein Urine Neg (Negative); Specific Gravity, Urine 1.015 (1.005-1.030); Urine Appearance Clear (CLEAR); Urine Color Straw (Yellow); Urobilinogen Urine Norm (Negative); pH Urine 6 (5-7)
[2023-02-19 16:29] LABS: Glucose Point of Care 221 mg/dL (70-110)
[2023-02-19] MEDS: insulin lispro 100 unit/1 mL SUBCUT ×2 (17:42→20:46)
[2023-02-19] MEDS: oxyCODONE IR 30 mg Tablet 15 MG PO (17:50)
[2023-02-19] MEDS: atorvastatin 40 mg Tablet 80 MG PO (20:18)
[2023-02-19] MEDS: clopidogrel 75 mg Tablet PO (20:18)
[2023-02-19] MEDS: montelukast sodium 10 mg Tablet PO (20:18)
[2023-02-19 20:36] LABS: Glucose Point of Care 185 mg/dL (70-110)
[2023-02-20] VITALS (32 sets, daily range): BP systolic 108–143; BP diastolic 48–81; PULSE 61–75; RESP 14–27; TEMP 36.7–37.3; O2SAT 94–98
[2023-02-20] MEDS: oxyCODONE IR 30 mg Tablet 15 MG PO ×2 (00:01→22:24)
--- NOTE | 2023-02-20 04:04 | PC.NURSE ---
02/20/23 0145 - Pt refuses to pt on bipap stating that she is 'too anxious.' notified. Updated on pt home meds. No new orders at this time.
--- NOTE | 2023-02-20 04:11 | PC.RESP ---
tried multiple times to get patient to wear bipap patient stated she cant wear it if she doesnt have her anxious meds.. final convinced her at 0400 to at least try to wear
[2023-02-20] MEDS: lisinopril 2.5 mg Tablet PO (04:18)
[2023-02-20 04:46] LABS: Basophils % 0.1 %; Hematocrit 35.2 % (37.0-47.0); Hemoglobin 11.3 g/dL (11.5-15.3); Lymphocytes # 0.7 10^3/uL (0.8-4.8); Lymphocytes % 7.4 %; Mean Corpuscular HGB Conc 32.1 g/dL (30.0-36.0); Mean Corpuscular Hemoglobin 28.4 pg (28.0-34.0); Mean Corpuscular Volume 88.4 fl (81-99); Mean Platelet Volume 10.7 fL (7.4-10.4); Monocytes # 0.2 10^3/uL (0.2-0.9); Monocytes % 2.1 %; Neutrophils # 8.64 10^3/uL (1.8-7.7); Nucleated Red Blood Cells % 0 %; Platelet Count 382 10^3/cmm (130-400); Red Blood Count 3.98 10^6/uL (4.1-5.3); Red Cell Distribution Width 14.2 % (12.1-15.1); White Blood Count 9.6 10^3/uL (4.0-10.0)
[2023-02-20 05:08] LABS: Anion Gap 13.8 (5-19); Blood Urea Nitrogen 30 mg/dL (8-23); Calcium 8.9 mg/dL (8.5-10.5); Carbon Dioxide 34 mmol/L (22-29); Chloride 91 mmol/L (98-107); Glucose 232 mg/dL (65-115); Magnesium 1.9 mg/dL (1.7-2.3); Osmolality Calculated 294 mOsm/kg (285-295); Potassium 3.8 mmol/L (3.5-5.1); Sodium 135 mmol/L (136-145)
[2023-02-20 06:30] LABS: Glucose Point of Care 301 mg/dL (70-110)
--- NOTE | 2023-02-20 09:20 | P.PN_ITS ---
Subjective Subjective: Paloma reports she feels a lot better this morning. She wore the BiPAP last night for 3 to 4 hours and reports it really helps her breathing. She got better sleep than she has in quite some time. She is hoping this can be prescribed at home. Less wheezing today. Medications: Reviewed: Yes Vitals/I&O/Wt Last Vital Signs Temp 98.0 F 02/20/23 05:02 Pulse 73 02/20/23 07:54 Resp 18 02/20/23 07:54 BP 143/63 02/20/23 05:02 Pulse Ox 98 02/20/23 07:54 O2 Del Method 02/20/23 07:54 O2 Flow Rate 3 02/20/23 07:54 FiO2 30 02/20/23 03:55 02/19/23 02/20/23 02/20/23 22:59 06:59 14:59 Intake Total 480 / 480 240 / 720 Output Total 350 / 350 600 / 950 Balance 130 / 130 -360 / -230 Weight last 48 hrs Weight 83.461 kg Physical Exam Narrative: General exam no distress Neck is supple no lymphadenopathy or thyromegaly Cardiovascular irregular, irregular. No obvious murmur Lungs diminished breath sounds bilaterally. A few faint wheezes Abdomen is soft with positive bowel sounds. No obvious organomegaly exams deferred Extremities edema trace Data 02/20/23 04:10 02/20/23 04:10 A&P Assessment and plan (1) COPD (chronic obstructive pulmonary disease): Patient presents with an acute COPD exacerbation. She has received IV steroids in the emergency department Continue 60 mg of Solu-Medrol every 12 hours Continue doxycycline. Budesonide twice daily, DuoNeb every 4 hours She would benefit greatly from BiPAP. She has significant CO2 retention and had some encephalopathy on presentation. With wearing BiPAP every night this may reduce frequency of readmissions. Will obtain overnight oximetry. Oxygen supplementation to keep saturation approximately 88 to 92% considering her CO2 retention. More oxygen than needed could worsen CO2 retention increa sing potential confusion. Qualifiers: COPD type: emphysema Emphysema type: panlobular Qualified Code(s): J43.1 - Panlobular emphysema (2) Atrial fib/flutter, transient: Patient diagnosed with atrial fibrillation at last hospital stay Continue carvedilol Continue anticoagulation Telemetry (3) CHF (congestive heart failure): Patient has some evidence of acute congestive heart failure with peripheral edema, elevated BNP, chest x-ray findings, shortness of breath Edema is improved. I's and O's are not accurate as they were not captured in the emergency department. Repeat echocardiogram demonstrates an improved ejection fraction of 50 to 55%, mild to moderate mitral regurgitation Continue close follow-up of BMP, with conversion to oral Lasix today. Considered dapagliflozin Qualifiers: Heart failure type: diastolic Heart failure chronicity: chronic Qualified Code(s): I50.32 - Chronic diastolic (congestive) heart failure (4) Diabetes 1.5, managed as type 2: Continue sliding scale insulin will be initiated (5) Acute respiratory failure with hypercapnia: See findings under COPD exacerbation Improved Plan Acute encephalopathy. She has some mild confusion currently. This may be secondary to Ativan or CO2 retention. She is now back to baseline. Urinalysis was negative Multiple other medical problems as outlined in past medical history full code currently Eliquis will suffice for DVT prophylaxis Attestations Medical Necessity Statement*: Needs continued hospital stay for COPD exacerbation requiring IV steroids Coding Level of Care Code 62263 Moderate MDM includes number and complexity of problems actively addressed during encounter and amount and/or complexity of data reviewed/ordered as do cumented Diagnoses COPD (chronic obstructive pulmonary disease) J43.1 COPD type: emphysema Emphysema type: panlobular Atrial fib/flutter, transient CHF (congestive heart failure) I50.32 Heart failure type: diastolic Heart failure chronicity: chronic Diabetes 1.5, managed as type 2 E13.9 Acute respiratory failure with hypercapnia J96.02 Time Spent (min) 24
[2023-02-20] MEDS: insulin lispro 100 unit/1 mL SUBCUT ×4 (09:24→22:23)
[2023-02-20] MEDS: doxycycline 100 mg Tablet PO ×2 (09:26→18:21)
[2023-02-20] MEDS: potassium chloride ER 10 mEq Tablet PO ×2 (09:26→18:20)
[2023-02-20] MEDS: carvedilol 6.25 mg Tablet PO ×2 (09:26→18:21)
[2023-02-20] MEDS: apixaban 5 mg Tablet PO ×2 (09:26→18:20)
[2023-02-20] MEDS: famotidine 20 mg Tablet PO ×2 (09:26→18:21)
[2023-02-20] MEDS: FUROsemide 40 mg Tablet PO (09:35)
[2023-02-20] MEDS: ipratropium-albuterol 3 mL Neb INHALATION ×2 (11:20→15:10)
[2023-02-20 11:48] LABS: Glucose Point of Care 225 mg/dL (70-110)
[2023-02-20 17:42] LABS: Glucose Point of Care 329 mg/dL (70-110)
[2023-02-20] MEDS: clopidogrel 75 mg Tablet PO (20:43)
[2023-02-20] MEDS: atorvastatin 40 mg Tablet 80 MG PO (20:43)
[2023-02-20] MEDS: montelukast sodium 10 mg Tablet PO (20:43)
[2023-02-20 21:55] LABS: Glucose Point of Care 189 mg/dL (70-110)
[2023-02-21] VITALS (9 sets, daily range): BP systolic 130–148; BP diastolic 57–76; PULSE 62–80; RESP 16–24; TEMP 36.5–36.7; O2SAT 87–97
[2023-02-21] MEDS: saline nasal spray 44mL Btl 1 SPRAY NASAL (00:17)
[2023-02-21] MEDS: ipratropium-albuterol 3 mL Neb INHALATION ×2 (04:50→07:41)
[2023-02-21 05:00] LABS: Anion Gap 14.6 (5-19); Blood Urea Nitrogen 33 mg/dL (8-23); Calcium 8.8 mg/dL (8.5-10.5); Carbon Dioxide 32 mmol/L (22-29); Chloride 93 mmol/L (98-107); Glucose 194 mg/dL (65-115); Osmolality Calculated 295 mOsm/kg (285-295); Potassium 3.6 mmol/L (3.5-5.1); Sodium 136 mmol/L (136-145)
[2023-02-21] MEDS: lisinopril 2.5 mg Tablet PO (06:15)
[2023-02-21 06:33] LABS: Glucose Point of Care 228 mg/dL (70-110)
[2023-02-21] MEDS: budesonide 0.5 mg/2 mL Neb INHALATION (07:41)
[2023-02-21] MEDS: insulin lispro 100 unit/1 mL SUBCUT (09:44)
[2023-02-21] MEDS: FUROsemide 40 mg Tablet PO (09:45)
--- NOTE | 2023-02-21 09:45 | P.DS_ITS ---
Discharge Providers Date of Admission: 02/19/23 12:38 Date of Discharge: February 21, 2023 Attending Provider at Admission: Esdras Castañeda MD Attending Provider at Discharge: Esdras Castañeda MD Primary Care Provider: Patti Irwin DO Diagnoses at Discharge Discharge Diagnosis (1) COPD (chronic obstructive pulmonary disease): Status: Acute Qualifiers: COPD type: emphysema Emphysema type: panlobular Qualified Code(s): J43.1 - Panlobular emphysema (2) Atrial fib/flutter, transient: Status: Acute (3) CHF (congestive heart failure): Status: Acute Qualifiers: Heart failure type: diastolic Heart failure chronicity: chronic Qualified Code(s): I50.32 - Chronic diastolic (congestive) heart failure Permanent problem details: Diastolic/Systolic EF 37% 12/14 (4) Diabetes 1.5, managed as type 2: Status: Chronic (5) Acute respiratory failure with hypercapnia: Status: Acute Reason for Visit Reason for Visit: SOB Hospital Course Hospital Course Paloma is a 82 year old WF recently discharged presenting to the hospital with increasing shortness of breath. In ED required BIPAP and found to have hypercarbic resp failure. No pneumonia seen on CXR. Clinically increase fluid demonstrated by peripheral edema, elevated BNP. Given IV streoids, po antibiotics, IV diuresis with significant improvement. Had increased troponin with no chest pain consistent with type 2 elevated/demand ischemia with resp failure. With above treatment improved drastically. No edema by discharge. Echo performed demonstrated improved EF from previously at 50-55 %. Attempted to qualify for BIPAP which would decrease readmissions and reduce encephalopathy episodes associated with hyercarbia. Patient given opportunity to ask questions and agreed with plan. To see PCP 3-5 days with BMP on follow up. Not to smoke. Physical Exam Narrative: NAD Neck supple CV RRR without murmur Lungs clear but with diminished BS Abd Soft . Non tender. EXt no c/c/e Discharge Data Studies Completed and Pending Completed Studies During Hospitalization Category Date Time Status XR chest 1V portable [id number] Stat Exams 02/19/23 05:26 Completed CV. echo complete* [id number] Routine Ultrasound 02/19/23 08:34 Completed Radiology Impressions Chest X-Ray 02/19/23 05:26 IMPRESSION: 1. No confluent infiltrates in the lungs. 2. Unchanged [id number] cardiomegaly. Laboratory Results WBC 9.6 10^3/uL (4.0-10.0) 02/20/23 04:10 RBC 3.98 10^6/uL (4.1-5.3) L 02/20/23 04:10 Hgb 11.3 g/dL (11.5-15.3) L 02/20/23 04:10 Hct 35.2 % (37.0-47.0) L 02/20/23 04:10 MCV 88.4 fl (81-99) 02/20/23 04:10 MCH 28.4 pg (28.0-34.0) 02/20/23 04:10 MCHC 32.1 g/dL (30.0-36.0) 02/20/23 04:10 RDW 14.2 % (12.1-15.1) 02/20/23 04:10 Plt Count 382 10^3/cmm (130-400) 02/20/23 04:10 MPV 10.7 fL (7.4-10.4) H 02/20/23 04:10 Neut % (Auto) 90.0 % 02/20/23 04:10 Lymph % (Auto) 7.4 % 02/20/23 04:10 [place] % (Auto) 2.1 % 02/20/23 04:10 Eos % (Auto) 0.0 % 02/20/23 04:10 Baso % (Auto) 0.1 % 02/20/23 04:10 Neut # (Auto) 8.64 10^3/uL (1.8-7.7) H 02/20/23 04:10 Lymph # (Auto) 0.7 10^3/uL (0.8-4.8) L 02/20/23 04:10 [place] # (Auto) 0.2 10^3/uL (0.2-0.9) 02/20/23 04:10 Eos # (Auto) 0.0 10^3/uL (0.0-0.8) 02/20/23 04:10 Baso # (Auto) 0.0 10^3/uL (0.0-0.1) 02/20/23 04:10 Nucleated RBC % (auto) 0 % 02/20/23 04:10 Nucleated RBCs # 0.0 /100WBC 02/20/23 04:10 Specimen Type Arterial 02/19/23 06:00 Sample Site Radial, right 02/19/23 06:00 ABG pH 7.31 (7.35-7.45) L 02/19/23 06:00 ABG pCO2 61.1 mmHg (35-45) H* 02/19/23 06:00 ABG pO2 136.0 mmHg (80.0-100.0) H 02/19/23 06:00 ABG HCO3 30.5 mmol/L (22-26) H 02/19/23 06:00 ABG Base Excess 2.8 mmol/L (-2.0-2.0) H 02/19/23 06:00 Carlos Alberto Test Pos 02/19/23 06:00 Hematocrit 36.3 % (37-47) L 02/19/23 06:00 Hgb O2 Saturation 97.4 % (95-100) 02/19/23 06:00 Carboxyhemoglobin 1.5 %THgb (0.4-20.1) 02/19/23 06:00 Methemoglobin 0.8 % (0.4-1.5) 02/19/23 06:00 Total Hemoglobin 11.9 g/dL (12-16) L 02/19/23 06:00 O2 Delivery Device Nc 02/19/23 06:00 O2 Liters/Min 2.0 % 02/19/23 06:00 Office Electrician ID Anne Marie 02/19/23 06:00 Sodium 136 mmol/L (136-145) 02/21/23 03:36 Potassium 3.6 mmol/L (3.5-5.1) 02/21/23 03:36 Chloride 93 mmol/L (98-107) L 02/21/23 03:36 Carbon Dioxide 32 mmol/L (22-29) H 02/21/23 03:36 Anion Gap 14.6 (5-19) 02/21/23 03:36 BUN 33 mg/dL (8-23) H 02/21/23 03:36 Creatinine 1.2 mg/dL (0.5-0.9) H 02/21/23 03:36 GFR Calculation Not Reportable 02/21/23 03:36 Glucose 194 mg/dL (65-115) H 02/21/23 03:36 POC Glucose 228 mg/dL (70-110) H 02/21/23 06:25 Calculated Osmolality 295 mOsm/kg (285-295) 02/21/23 03:36 Calcium 8.8 mg/dL (8.5-10.5) 02/21/23 03:36 Magnesium 1.9 mg/dL (1.7-2.3) 02/20/23 04:10 Total Bilirubin 0.4 mg/dL (0.15-1.2) 02/19/23 05:33 AST 13 U/L (0-32) 02/19/23 05:33 ALT 13 U/L (0-33) 02/19/23 05:33 Alkaline Phosphatase 112 U/L (35-105) H 02/19/23 05:33 Troponin T Baseline 19 ng/L (0-10) H 02/19/23 05:33 Troponin T 120 Minute 23.51 ng/L (0-10) H 02/19/23 08:14 Delta Troponin T 4.51 ABS# (0-10) 02/19/23 08:14 Troponin T Hi Sens 6Hr 26.37 ng/L (0-10) H 02/19/23 12:00 Troponin T Hi Sens 6Hr Delta 7.37 ng/L (0-12) 02/19/23 12:00 NT-Pro-B Natriuret Pep 4617 pg/mL (0-450) H 02/19/23 05:33 Total Protein 6.8 g/dL (6.6-8.7) 02/19/23 05:33 Albumin 3.7 g/dL (3.5-5.2) 02/19/23 05:33 Globulin 3.1 g/dL (1.3-4.6) 02/19/23 05:33 Urine Color Straw (Yellow) 02/19/23 15:12 Urine Appearance Clear (CLEAR) 02/19/23 15:12 Urine pH 6 (5-7) 02/19/23 15:12 Ur Specific [place] 1.015 (1.005-1.030) 02/19/23 15:12 Urine Protein Neg (Negative) 02/19/23 15:12 Urine Glucose (UA) Norm (Normal) 02/19/23 15:12 Urine Ketones Negative (Negative) 02/19/23 15:12 Urine Blood Neg (Negative) 02/19/23 15:12 Urine Nitrate Negative (Negative) 02/19/23 15:12 Urine Bilirubin Neg (Negative) 02/19/23 15:12 Urine Urobilinogen Norm mg/dL (Negative) 02/19/23 15:12 Ur Leukocyte Esterase Negative (Negative) 02/19/23 15:12 Influenza Type A Ag Negative (Negative) 02/19/23 05:35 Influenza Type B Ag Negative (Negative) 02/19/23 05:35 SARS-CoV-2 Ag (Rapid) negative (Negative) 02/19/23 05:35 Vitals Last Vital Signs Temp 97.9 F 02/21/23 08:00 Pulse 62 02/21/23 08:00 Resp 17 02/21/23 08:00 BP 130/57 02/21/23 08:00 Pulse Ox 90 02/21/23 08:00 O2 Del Method 02/21/23 08:00 O2 Flow Rate 1 02/21/23 07:42 FiO2 30 02/20/23 20:00 Discharge Plan Discharge Patient Disposition: Home Condition: Stable Prescriptions: New doxycycline monohydrate 100 mg Tablet 100 mg PO BID Qty: 14 0RF furosemide 40 mg Tablet 40 mg PO DAILY@0800 Qty: 30 0RF prednisone 20 mg tablet 40 mg PO DAILY 5 Days Qty: 10 0RF ipratropium-albuterol 0.5 mg-3 mg(2.5 mg base)/3 mL solution for nebulization 3 ml inhalation Q4H PRN (Reason: shortness of breath or wheezing) Qty: 180 0RF Rx Instructions: until breathing returns to target peak flow/parameters Continued (DME) overnight oximetry See Rx Instructions .Route .MEDSUPPLY Qty: 1 0RF Rx Instructions: As directed budesonide-formoterol [Symbicort] 160-4.5 mcg/actuation HFA aerosol inhaler 2 puff inhalation Q12H Qty: 10.2 2RF (DME) FreeStyle [place] 14 Day Sensor Kit See Rx Instructions .Route Qty: 2 11RF Rx Instructions: As directed (DME) FreeStyle [place] 14 Day [place] Misc See Rx Instructions .Route Qty: 1 0RF Rx Instructions: As directed (DME) blood-glucose meter Misc See Rx Instructions .Route Qty: 1 0RF Rx Instructions: As directed with testing strips (DME) Blood Glucose Test Strip See Rx Instructions .Route Qty: 50 0RF Rx Instructions: As directed with glucose machine. (DME) pen needle, diabetic [TechLITE Pen Needle] 32 gauge x 5/32 needle See Rx Instructions .Route Qty: 100 0RF Rx Instructions: As directed potassium chloride 10 mEq capsule, extended release 10 meq PO BID Qty: 270 0RF atorvastatin 80 mg tablet 80 mg PO BEDTIME Qty: 90 3RF (DME) breast prosthesis bilateral and bras x4 See Rx Instructions .Route .MEDSUPPLY Qty: 1 0RF Rx Instructions: As directed oxycodone 15 mg tablet 15 mg PO Q6H PRN (Reason: pain) 30 Days Qty: 120 0RF fluticasone propionate [Flonase Allergy Relief] 50 mcg/actuation spray,suspension 2 spray intranasal DAILY PRN (Reason: Nasal Congestion) Rx Instructions: administer into each nostril insulin glargine [Lantus Solostar U-100 Insulin] 100 unit/mL (3 mL) insulin pen 14 unit SUBCUT BEDTIME ondansetron 4 mg tablet,disintegrating 4 mg PO Q8H PRN (Reason: nausea and vomiting) Qty: 15 0RF famotidine 20 mg tablet 20 mg PO BID montelukast 10 mg tablet 10 mg PO BEDTIME lisinopril 2.5 mg tablet 2.5 mg PO QAM carvedilol 6.25 mg Tablet 6.25 mg PO BID 30 Days Qty: 60 0RF Eliquis 5 mg Tablet 5 mg PO Q12H 30 Days Qty: 60 0RF Benadryl 25 mg Capsule 25 mg PO BEDTIME clopidogrel 75 mg tablet 75 mg PO BEDTIME Ventolin HFA 90 mcg/actuation HFA aerosol inhaler 2 puff inhalation 6XD PRN (Reason: Shortness Of Breath) loratadine 10 mg tablet 10 mg PO QAM glipizide 5 mg tablet 5 mg PO QAM mometasone 0.1 % solution 1 applic topical DAILY PRN (Reason: Itching) Rx Instructions: Apply a few drops to scalp daily as needed for itch. Discontinued furosemide 20 mg tablet 20 mg PO QAM doxycycline hyclate 100 mg tablet 100 mg PO BID 5 Days Qty: 10 0RF Rx Instructions: 5 days (rx filled 02/16/23) prednisone 20 mg tablet 20 mg PO BID 5 Days Qty: 10 0RF Rx Instructions: for 5 days (rx filled 02/16/23) Discharge Orders: Discharge Order (Routine); Ordered 02/21/23 Ordered By: Esdras Castañeda Referrals: Patti Irwin DO [Primary Care Provider] - 4-7 days (BMP on follow up) Discharge Diet: Cardiac and Diabetic Discharge Activity: Increase activity as tolerated Patient Instructions: Opioid Safety Activity Restrictions/Additional Instructions: Home oxygen evaluation prior to discharge. Take all meds as prescribed. Do not start smoking. Patient's Health Concerns: Short of breath Assessment: COPD exacerbation Heart failure with preserved EF Plan of Treatment: No smoking, increased Lasix, attempt to get BIPAP qualified for hypercarbic resp failure Discharge Attestations Time Spent in Discharge Care*: greater than 30 min Quality Metrics Clinical Quality Measures [ No reported AMI, CVA or VTE this stay] Coding Level of Care Code 60183 Total time (in minutes) for Discharge: 39 Diagnoses COPD (chronic obstructive pulmonary disease) J43.1 COPD type: emphysema Emphysema type: panlobular Atrial fib/flutter, transient CHF (congestive heart failure) I50.32 Heart failure type: diastolic Heart failure chronicity: chronic Diabetes 1.5, managed as type 2 E13.9 Acute respiratory failure with hypercapnia J96.02
[2023-02-21] MEDS: famotidine 20 mg Tablet PO (09:46)
[2023-02-21] MEDS: potassium chloride ER 10 mEq Tablet PO (09:46)
[2023-02-21] MEDS: carvedilol 6.25 mg Tablet PO (09:46)
[2023-02-21] MEDS: doxycycline 100 mg Tablet PO (09:46)
[2023-02-21] MEDS: apixaban 5 mg Tablet PO (09:47)
[2023-02-21] MEDS: predniSONE 20 mg Tablet 40 MG PO (10:41)
== END 2023-02-21 11:46 | disposition home or self-care (01) | DRG 291 ==
LOC: ER 08:22 → CSU 12:39
PROVIDERS: Emergency Medicine; Admitting Provider Internal Medicine; Emergency Provider Family Medicine; PCP Family Medicine; Visit Provider Internal Medicine
DX: I13.0 Hypertensive heart and chronic kidney disease with heart failure and stage 1 through stage 4 chronic kidney disease, or unspecified chronic kidney disease (principal); I50.33 Acute on chronic diastolic (congestive) heart failure; J96.02 Acute respiratory failure with hypercapnia; G93.49 Other encephalopathy; J43.1 Panlobular emphysema; Z79.891 Long term (current) use of opiate analgesic; Z79.4 Long term (current) use of insulin; Z79.01 Long term (current) use of anticoagulants; Z79.02 Long term (current) use of antithrombotics/antiplatelets; Z79.84 Long term (current) use of oral hypoglycemic drugs; N18.9 Chronic kidney disease, unspecified; E13.22 Other specified diabetes mellitus with diabetic chronic kidney disease; I48.91 Unspecified atrial fibrillation; Z88.0 Allergy status to penicillin; Z88.2 Allergy status to sulfonamides; Z85.3 Personal history of malignant neoplasm of breast; G89.29 Other chronic pain; Z86.73 Personal history of transient ischemic attack (TIA), and cerebral infarction without residual deficits; E78.5 Hyperlipidemia, unspecified; Z86.16 Personal history of COVID-19; I34.0 Nonrheumatic mitral (valve) insufficiency; Z90.13 Acquired absence of bilateral breasts and nipples; I70.1 Atherosclerosis of renal artery; Z87.01 Personal history of pneumonia (recurrent); M81.0 Age-related osteoporosis without current pathological fracture; E66.9 Obesity, unspecified; Z68.33 Body mass index [BMI] 33.0-33.9, adult; F17.210 Nicotine dependence, cigarettes, uncomplicated; Z85.828 Personal history of other malignant neoplasm of skin; E13.42 Other specified diabetes mellitus with diabetic polyneuropathy
CPT/HCPCS: 36415; 36416; 36600; 71045; 80048; 80053; 81003; 82805; 82962; 83735; 83880; 84484; 85025; 87426; 87804; 93005; 93306; 94640; 94660; 94760; 96372; 96374; 96375; 96376; 99291; J1815; J1940; J2060; J2919; J2930; J7512; J7613; J7626; J7644

== ENCOUNTER → 2023-03-03 14:50 | Outpatient (BNVA) | payer MEDICARE, SELFPAY | PROVIDERS: PCP Family Medicine; Visit Provider Family Medicine | DX: I50.32 Chronic diastolic (congestive) heart failure (principal); Z79.01 Long term (current) use of anticoagulants | CPT/HCPCS: 80048; 85025 ==

== ENCOUNTER → 2023-03-04 10:53 | Outpatient (BNVA) | payer MEDICARE, SELFPAY | PROVIDERS: PCP Family Medicine; Visit Provider Nurse Practitioner Family | DX: I11.0 Hypertensive heart disease with heart failure (principal); I50.32 Chronic diastolic (congestive) heart failure; I48.0 Paroxysmal atrial fibrillation; Z87.891 Personal history of nicotine dependence; Z79.01 Long term (current) use of anticoagulants | CPT/HCPCS: 99204; 99214 ==

== ENCOUNTER 2023-03-12 12:16 | Oncology outpatient (recurring) (ONCR) | payer MEDICARE, SELFPAY ==
[2023-03-12 12:57] LABS: Basophils % 0.2 %; Eosinophils # 0.4 10^3/uL (0.0-0.8); Eosinophils % 5.7 %; Hematocrit 32.4 % (37.0-47.0); Hemoglobin 10.4 g/dL (11.5-15.3); Lymphocytes # 1.4 10^3/uL (0.8-4.8); Lymphocytes % 21.6 %; Mean Corpuscular HGB Conc 32.1 g/dL (30.0-36.0); Mean Corpuscular Hemoglobin 28.9 pg (28.0-34.0); Mean Platelet Volume 9.4 fL (7.4-10.4); Monocytes # 0.4 10^3/uL (0.2-0.9); Monocytes % 6.5 %; Neutrophils # 4.13 10^3/uL (1.8-7.7); Neutrophils % 65.7 %; Nucleated Red Blood Cells % 0 %; Platelet Count 386 10^3/cmm (130-400); Red Cell Distribution Width 14.3 % (12.1-15.1); White Blood Count 6.3 10^3/uL (4.0-10.0)
[2023-03-12 13:37] LABS: Alanine Aminotransferase 13 U/L (0-33); Albumin Level 3.4 g/dL (3.5-5.2); Alkaline Phosphatase 133 U/L (35-105); Anion Gap 16.4 (5-19); Aspartate Amino Transferase 11 U/L (0-32); Blood Urea Nitrogen 17 mg/dL (8-23); Calcium 9.2 mg/dL (8.5-10.5); Carbon Dioxide 28 mmol/L (22-29); Chloride 95 mmol/L (98-107); Globulin 3.2 g/dL (1.3-4.6); Glucose 141 mg/dL (65-115); Osmolality Calculated 284 mOsm/kg (285-295); Potassium 4.4 mmol/L (3.5-5.1); Sodium 135 mmol/L (136-145); Total Bilirubin 0.4 mg/dL (0.15-1.2); Total Protein 6.6 g/dL (6.6-8.7)
== END 2023-03-23 23:59 | disposition home or self-care (01) ==
PROVIDERS: Nurse Practitioner Family; PCP Family Medicine; Visit Provider Internal Medicine Medical Oncology
DX: Z08 Encounter for follow-up examination after completed treatment for malignant neoplasm (principal); Z85.3 Personal history of malignant neoplasm of breast; Z90.12 Acquired absence of left breast and nipple; J44.9 Chronic obstructive pulmonary disease, unspecified; Z79.899 Other long term (current) drug therapy; F17.210 Nicotine dependence, cigarettes, uncomplicated
CPT/HCPCS: 36415; 80053; 85025; 99213

== ENCOUNTER 2023-04-10 00:05 | Emergency (ER) | payer MEDICARE, SELFPAY ==
[2023-04-10 00:09] VITALS: BP 187/92; PULSE 123; RESP 21; TEMP 36.4; O2SAT 83; BMI 40.4
--- NOTE | 2023-04-10 00:17 | ECG_ITS ---
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 Measurements Intervals [place] Rate: 126 P: -41 DC: 140 QRS: -16 QRSD: 148 T: 149 QT: 324 QTc: 469 Interpretive Statements SINUS TACHYCARDIA LEFT BUNDLE BRANCH BLOCK [120+ ms QRS DURATION, 80+ ms Q/S IN V1/V2, 85+ ms R IN I/aVL/V5/V6] Compared to ECG 02/19/2023 14:01:37 Left bundle-branch block now present Sinus rhythm no longer present Intraventricular conduction delay no longer present Electronically Signed On 04-12-2023 6:11:27 CDT by Edna Schwartz M.D. [id number] f
--- NOTE | 2023-04-10 00:18 | XRR_ITS ---
PROCEDURE INFORMATION: Exam: XR Chest Exam date and time: 04/10/2023 12:22 AM Age: 82 years old Clinical indication: Shortness of breath; Prior surgery; Surgery date: 6+ months; Surgery type: Mastectomy. Gb. Aortic graft; Patient HX: C/O severe SOB. History of copd. TECHNIQUE: Imaging protocol: Radiologic exam of the chest. Views: 1 view. COMPARISON: CR (CHEST, ) 02/19/2023 5:30 AM FINDINGS: Lungs: Unremarkable. No consolidation. Pleural spaces: Unremarkable. No pleural effusion. No pneumothorax. Heart/Mediastinum: Cardiomegaly. Vasculature: Partially visible abdominal aorta stent graft. Bones/joints: Unremarkable. XR/XR chest 1V portable [id number] IMPRESSION: Negative for acute chest abnormality.
--- NOTE | 2023-04-10 00:24 | W.ED.SOB ---
HPI - SOB/Dyspnea General: Chief Complaint: Shortness of Breath/Dyspnea Stated Complaint: SOB Time Seen by Provider: 04/10/23 00:08 Source: patient and family Mode of arrival: ambulatory Limitations: no limitations History of Present Illness: HPI Narrative: 82-year-old female has a history of COPD, CHF she is on 3 L to 2 L oxygen at baseline at home states that since morning she had increasing shortness of breath she is 83% here on her 3 L she is currently on 5 L. States she is also had a cough states producing some colored sputum with her cough and states that she feels like she just cannot breathe she has had some pain with her cough denies any fever she denies any vomiting or diarrhea. Associated symptoms: Reports chest pain; Deny abdominal pain, fever(s), nausea or vomiting Review of Systems Const: Denies: fever(s), chills or body aches Eyes: Denies: eye discomfort ENMT: Denies: throat pain or dental pain Card: Reports: chest pain Resp: Reports: dyspnea and productive cough GI: Denies: abdominal pain, nausea, vomiting or diarrhea : Denies: dysuria Musc: Denies: neck pain or back pain Skin/Breast: Denies: rash Neuro: Denies: headache(s) Psych: Denies: depression Leonardo/Lymph: Denies: easy bruising All/Imm: Denies: urticaria PFSH ED PFSH: Medical History AAA (abdominal aortic aneurysm) Status post stent graft repair Anemia Atopic dermatitis B12 deficiency Breast CA Carotid artery disease CHF (congestive heart failure) Diastolic/Systolic EF 37% 12/14 Chronic kidney disease Chronic pain COPD (chronic obstructive pulmonary disease) CVA (cerebral vascular accident) Descending thoracic aortic 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, 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 Dyslipidemia History of COVID-12 Aug 2021 History of nonmelanoma skin cancer HTN (hypertension) Nicotine dependence, cigarettes, with unspecified nicotine-induced disorders Obesity Osteoporosis Pneumonia Renal artery stenosis Seasonal allergies Surgical History History of aortic aneurysm repair History of stent insertion of renal artery History of total mastectomy of left breast 04/[address] Vo at [facility], [place], [place] S/P cholecystectomy S/P hysterectomy S/P mastectomy (08/2009) Right modified radical mastectomy S/P tonsillectomy Family History Other Stroke Social History Smoking and tobacco status: current every day smoker cigarettes Packs smoked per day: 1 Years cigarettes smoked: 65 Alcohol intake: never Substance/Drug Use: never Physical Exam Const: COMMON NORMALS: patient oriented x3 GENERAL APPEARANCE: in distress and ill appearing HENMT: COMMON NORMALS: normocephalic and atraumatic HEAD & SCALP: normocephalic and atraumatic Eye: COMMON NORMALS: conjunctivae normal CONJUNCTIVA: Yes conjunctivae normal Neck/C-Spine: COMMON NORMALS: full ROM and supple Chest: COMMONS NORMALS: normal inspection of the chest and normal palpation of entire chest wall Resp: EFFORT & INSPECTION: Yes tachypneic and Yes respiratory distress AUSCULTATION: rales Cardio: COMMON NORMALS: regular rhythm and No murmurs present (Cardio) RATE: tachycardic RHYTHM: regular rhythm GI: COMMON NORMALS: Normal to inspection, nondistended, normoactive bowel sounds present, Soft to palpation, non-tender and no masses PALPATION: Yes Soft to palpation Extremity: COMMON NORMALS: normal to inspection and full ROM Neuro: COMMON NORMALS: patient oriented x3, moves all extremities and no focal motor deficits Psych: COMMON NORMALS: mental status grossly normal, Normal thought process present and cooperative THOUGHT PROCESS: Normal thought process present Skin: COMMON NORMALS: no rashes or lesions noted and no wounds GENERAL SKIN EXAM: no rashes or lesions noted Course Vital Signs: Vital signs: Vital Signs Temperature 97.6 F 04/10/23 00:09 Pulse Rate 78 04/10/23 01:46 Respiratory Rate 22 H 04/10/23 01:31 Blood Pressure 144/55 04/10/23 01:31 Pulse Oximetry 94 04/10/23 01:46 Oxygen Delivery Me thod Nasal Cannula 04/10/23 01:31 Oxygen Flow Rate 2 04/10/23 01:31 MDM - SOB/Dyspnea Medical Decision Making Patient presents for shortness of breath likely a bronchitis she is gruesome some sputum with her cough no signs of pneumonia on her x-ray she feels much improved after breathing treatment she is no longer in any distress was able to turn her back to her 3 L baseline and she is sat 96% she is wanting to go home I feel she is stable for discharge we will place her on 5 days of steroids she is to do breathing treatments at home we will place her on doxycycline as well she is to follow-up with PCP and return if worsening she understands agrees to plan. Differential Diagnosis Likely acute exacerbation of chronic obstructive airways disease; Unlikely congestive heart failure, community acquired pneumonia or pulmonary embolism Medical Records I reviewed the patient's medical records. Lab Data I reviewed the patient's lab results. 04/10/23 00:26 04/10/23 00:26 Labs/Radiology: Laboratory Results WBC 12.1 10^3/uL (4.0-10.0) H 04/10/23 00:26 RBC 4.04 10^6/uL (4.1-5.3) L 04/10/23 00:26 Hgb 11.2 g/dL (11.5-15.3) L 04/10/23 00:26 Hct 36.8 % (37.0-47.0) L 04/10/23 00:26 MCV 91.1 fl (81-99) 04/10/23 00: MCH 27.7 pg (28.0-34.0) L 04/10/23 00:26 MCHC 30.4 g/dL (30.0-36.0) 04/10/23 00: RDW 15.0 % (12.1-15.1) 04/10/23 00: Plt Count 374 10^3/cmm (130-400) 04/10/23 00: MPV 10.1 fL (7.4-10.4) 04/10/23 00:26 Neut % (Auto) 55.5 % 04/10/23 00:26 Lymph % (Auto) 31.4 % 04/10/23 00:26 [place] % (Auto) 7.4 % 04/10/23 00:26 Eos % (Auto) 5.3 % 04/10/23 00:26 Baso % (Auto) 0.2 % 04/10/23 00: Neut # (Auto) 6.71 10^3/uL (1.8-7.7) 04/10/23 00:26 Lymph # (Auto) 3.8 10^3/uL (0.8-4.8) 04/10/23 00:26 [place] # (Auto) 0.9 10^3/uL (0.2-0.9) 04/10/23 00:26 Eos # (Auto) 0.6 10^3/uL (0.0-0.8) 04/10/23 00:26 Baso # (Auto) 0.0 10^3/uL (0.0-0.1) 04/10/23 00:26 Nucleated RBC % (auto) 0 % 04/10/23 00: Nucleated RBCs # 0.0 /100WBC 04/10/23 00:26 PT 14.40 SECONDS (12.1-14.9) 04/10/23 00: INR 1.08 (0.8-1.2) 04/10/23 00:26 Specimen Type Arterial 04/10/23 01:05 Sample Site Radial, right 04/10/23 01:05 ABG pH 7.35 (7.35-7.45) 04/10/23 01:05 ABG pCO2 54.5 mmHg (35-45) H 04/10/23 01:05 ABG pO2 73.2 mmHg (80.0-100.0) L 04/10/23 01:05 ABG HCO3 30.1 mmol/L (22-26) H 04/10/23 01:05 ABG Base Excess 3.5 mmol/L (-2.0-2.0) H 04/10/23 01:05 Carlos Alberto Test Pos 04/10/23 01:05 Hematocrit 33.9 % (37-47) L 04/10/23 01:05 Hgb O2 Saturation 92.5 % (95-100) L 04/10/23 01:05 Carboxyhemoglobin 1.9 %THgb (0.4-20.1) 04/10/23 01:05 Methemoglobin 0.5 % (0.4-1.5) 04/10/23 01:05 Total Hemoglobin 11.1 g/dL (12-16) L 04/10/23 01:05 O2 Delivery Device Nc 04/10/23 01:05 O2 Liters/Min 2.0 % 04/10/23 01:05 Suture Polisher ID [email or web address] 04/10/23 01:05 Sodium 138 mmol/L (136-145) 04/10/23 00:26 Potassium 3.9 mmol/L (3.5-5.1) 04/10/23 00:26 Chloride 98 mmol/L (98-107) 04/10/23 00:26 Carbon Dioxide 29 mmol/L (22-29) 04/10/23 00:26 Anion Gap 14.9 (5-19) 04/10/23 00:26 BUN 18 mg/dL (8-23) 04/10/23 00:26 Creatinine 1.2 mg/dL (0.5-0.9) H 04/10/23 00:26 GFR Calculation Not Reportable 04/10/23 00:26 Glucose 176 mg/dL (65-115) H 04/10/23 00:26 Calculated Osmolality 292 mOsm/kg (285-295) 04/10/23 00:26 Calcium 8.8 mg/dL (8.5-10.5) 04/10/23 00:26 Total Bilirubin 0.3 mg/dL (0.15-1.2) 04/10/23 00:26 AST 15 U/L (0-32) 04/10/23 00:26 ALT 10 U/L (0-33) 04/10/23 00:26 Alkaline Phosphatase 144 U/L (35-105) H 04/10/23 00:26 Troponin T Baseline 27 ng/L (0-10) H 04/10/23 00:26 NT-Pro-B Natriuret Pep 2498 pg/mL (0-450) H 04/10/23 00:26 Total Protein 6.4 g/dL (6.6-8.7) L 04/10/23 00:26 Albumin 3.9 g/dL (3.5-5.2) 04/10/23 00:26 Globulin 2.5 g/dL (1.3-4.6) 04/10/23 00:26 SARS-CoV-2 Ag (Rapid) negative (Negative) 04/10/23 00:31 Discharge Plan Discharge Patient Disposition: Home Clinical Impression: Bronchitis Condition: Stable Prescriptions: New prednisone 50 mg tablet 50 mg PO DAILY Qty: 5 0RF doxycycline hyclate 100 mg tablet 100 mg PO BID 7 Days Qty: 14 0RF No Action (DME) overnight oximetry See Rx Instructions .Route .MEDSUPPLY Qty: 1 0RF Rx Instructions: As directed budesonide-formoterol [Symbicort] 160-4.5 mcg/actuation HFA aerosol inhaler 2 puff inhalation Q12H Qty: 10.2 2RF Breztri Aerosphere 160-9-4.8 mcg/actuation HFA aerosol inhaler 2 inh inhalation BID Qty: 10.7 6RF (DME) FreeStyle [place] 14 Day Sensor Kit See Rx Instructions .Route Qty: 2 11RF Rx Instructions: As directed (DME) FreeStyle [place] 14 Day [place] Misc See Rx Instructions .Route Qty: 1 0RF Rx Instructions: As directed fluconazole [Diflucan] 200 mg tablet 200 mg PO DAILY Qty: 14 0RF nystatin 100,000 unit/mL suspension 5 ml PO TID Qty: 60 0RF Rx Instructions: swish and swallow buspirone 5 mg tablet 5 mg PO .q hs Qty: 30 1RF doxycycline hyclate 100 mg tablet 100 mg PO BID (DME) blood-glucose meter Misc See Rx Instructions .Route Qty: 1 0RF Rx Instructions: As directed with testing strips (DME) Blood Glucose Test Strip See Rx Instructions .Route Qty: 50 0RF Rx Instructions: As directed with glucose machine. (DME) pen needle, diabetic [TechLITE Pen Needle] 32 gauge x 5/32 needle See Rx Instructions .Route Qty: 100 0RF Rx Instructions: As directed atorvastatin 80 mg tablet 80 mg PO BEDTIME Qty: 90 3RF (DME) breast prosthesis bilateral and bras x4 See Rx Instructions .Route .MEDSUPPLY Qty: 1 0RF Rx Instructions: As directed potassium chloride 10 mEq capsule, extended release 10 meq PO BID Qty: 270 0RF oxycodone 15 mg tablet 15 mg PO Q6H PRN (Reason: pain) 30 Days Qty: 120 0RF clopidogrel 75 mg tablet 75 mg PO BEDTIME Qty: 90 3RF glipizide 5 mg tablet See Rx Instructions .ROUTE .COMPLEX Qty: 90 1RF Dose Instruction: TAKE ONE TABLET BY MOUTH EVERY DAY Rx Instructions: TAKE ONE TABLET BY MOUTH EVERY DAY montelukast 10 mg tablet See Rx Instructions .ROUTE .COMPLEX Qty: 90 0RF Dose Instruction: TAKE ONE TABLET BY MOUTH EVERY DAY Rx Instructions: TAKE ONE TABLET BY MOUTH EVERY DAY lisinopril 2.5 mg tablet See Rx Instructions .ROUTE .COMPLEX Qty: 90 0RF Dose Instruction: TAKE ONE TABLET BY MOUTH EVERY DAY Rx Instructions: TAKE ONE TABLET BY MOUTH EVERY DAY insulin glargine [Lantus Solostar U-100 Insulin] 100 unit/mL (3 mL) insulin pen 14 unit SUBCUT BEDTIME Qty: 15 0RF fluticasone propionate [Flonase Allergy Relief] 50 mcg/actuation spray,suspension 2 spray intranasal DAILY PRN (Reason: Nasal Congestion) Rx Instructions: administer into each nostril ondansetron 4 mg tablet,disintegrating 4 mg PO Q8H PRN (Reason: nausea and vomiting) Qty: 15 0RF famotidine 20 mg tablet 20 mg PO BID Benadryl 25 mg Capsule 25 mg PO BEDTIME Ventolin HFA 90 mcg/actuation HFA aerosol inhaler 2 puff inhalation 6XD PRN (Reason: Shortness Of Breath) loratadine 10 mg tablet 10 mg PO QAM mometasone 0.1 % solution 1 applic topical DAILY PRN (Reason: Itching) Rx Instructions: Apply a few drops to scalp daily as needed for itch. furosemide 40 mg Tablet 40 mg PO DAILY@0800 Qty: 30 0RF ipratropium-albuterol 0.5 mg-3 mg(2.5 mg base)/3 mL solution for nebulization 3 ml inhalation Q4H PRN (Reason: shortness of breath or wheezing) Qty: 180 0RF Rx Instructions: until breathing returns to target peak flow/parameters Discharge Orders: Discharge ED (Routine); Ordered 04/10/23 Ordered By: Paty Mosqueda Referrals: Patti Irwin DO [Primary Care Provider] - 1-3 days Discharge Diet: Advance as tolerated Discharge Activity: Resume usual activity Patient Instructions: Acute Bronchitis (ED) Coding Level of Care Code ED Etymology Professor for Betty Vela
[2023-04-10 00:37] LABS: Basophils % 0.2 %; Eosinophils # 0.6 10^3/uL (0.0-0.8); Eosinophils % 5.3 %; Hematocrit 36.8 % (37.0-47.0); Hemoglobin 11.2 g/dL (11.5-15.3); Lymphocytes # 3.8 10^3/uL (0.8-4.8); Lymphocytes % 31.4 %; Mean Corpuscular HGB Conc 30.4 g/dL (30.0-36.0); Mean Corpuscular Hemoglobin 27.7 pg (28.0-34.0); Mean Corpuscular Volume 91.1 fl (81-99); Mean Platelet Volume 10.1 fL (7.4-10.4); Monocytes # 0.9 10^3/uL (0.2-0.9); Monocytes % 7.4 %; Neutrophils # 6.71 10^3/uL (1.8-7.7); Neutrophils % 55.5 %; Nucleated Red Blood Cells % 0 %; Platelet Count 374 10^3/cmm (130-400); Red Blood Count 4.04 10^6/uL (4.1-5.3); White Blood Count 12.1 10^3/uL (4.0-10.0)
[2023-04-10 00:46] LABS: INR 1.08 (0.8-1.2)
[2023-04-10 00:50] LABS: SARS Covid-2 Antigen negative (Negative)
[2023-04-10 00:54] LABS: Troponin(5th) Baseline 27 ng/L (0-10)
[2023-04-10 00:57] VITALS: PULSE 98; RESP 25; O2SAT 96
[2023-04-10 01:03] LABS: Alanine Aminotransferase 10 U/L (0-33); Albumin Level 3.9 g/dL (3.5-5.2); Alkaline Phosphatase 144 U/L (35-105); Aspartate Amino Transferase 15 U/L (0-32); Blood Urea Nitrogen 18 mg/dL (8-23); Calcium 8.8 mg/dL (8.5-10.5); Carbon Dioxide 29 mmol/L (22-29); Chloride 98 mmol/L (98-107); Creatinine Clr Calc Pharmacy 53.5488; Globulin 2.5 g/dL (1.3-4.6); Glucose 176 mg/dL (65-115); NT Pro B Type Natriuretic Pept 2498 pg/mL (0-450); Osmolality Calculated 292 mOsm/kg (285-295); Sodium 138 mmol/L (136-145); Total Bilirubin 0.3 mg/dL (0.15-1.2); Total Protein 6.4 g/dL (6.6-8.7)
[2023-04-10 01:09] LABS: Anion Gap 14.9 (5-19); Potassium 3.9 mmol/L (3.5-5.1)
[2023-04-10] MEDS: dexamethasone 10 mg/mL INJ IVP (01:09)
[2023-04-10 01:12] LABS: ABG PCO2 54.5 mmHg (35-45); ABG PH Result 7.35 (7.35-7.45); Arterial Blood Gas Hematocrit 33.9 % (37-47); Base Excess ABG 3.5 mmol/L (-2.0-2.0); Blood Gas Allen Test Pos; Blood Gas Sample Type Arterial; Carboxyhemoglobin 1.9 %THgb (0.4-20.1); HCO3 ABG 30.1 mmol/L (22-26); HGB O2 Sat 92.5 % (95-100); Methemoglobin 0.5 % (0.4-1.5); PO2 ABG 73.2 mmHg (80.0-100.0); Total Hemoglobin 11.1 g/dL (12-16)
[2023-04-10 01:13] LABS: Blood Gas Sample Site Radial, right; Oxygen Device NC
[2023-04-10 01:31] VITALS: BP 144/55; PULSE 82; RESP 22; O2SAT 95
[2023-04-10 01:46] VITALS: PULSE 78; O2SAT 94
== END 2023-04-10 01:47 | disposition home or self-care (01) ==
PROVIDERS: Emergency Provider Emergency Medicine; PCP Family Medicine
DX: J44.9 Chronic obstructive pulmonary disease, unspecified (principal); Z79.02 Long term (current) use of antithrombotics/antiplatelets; Z79.84 Long term (current) use of oral hypoglycemic drugs; Z79.4 Long term (current) use of insulin; Z20.822 Contact with and (suspected) exposure to COVID-19; F17.210 Nicotine dependence, cigarettes, uncomplicated; E13.22 Other specified diabetes mellitus with diabetic chronic kidney disease; I13.0 Hypertensive heart and chronic kidney disease with heart failure and stage 1 through stage 4 chronic kidney disease, or unspecified chronic kidney disease; N18.9 Chronic kidney disease, unspecified; I50.9 Heart failure, unspecified; Z86.73 Personal history of transient ischemic attack (TIA), and cerebral infarction without residual deficits; E78.5 Hyperlipidemia, unspecified
CPT/HCPCS: 71045; 80053; 82805; 83880; 84484; 85025; 85610; 87426; 93005; 94640; 96374; 99285; J1100

== ENCOUNTER 2023-05-29 20:46 | Inpatient (IN) | payer MEDICARE, SELFPAY ==
--- NOTE | 2023-05-29 20:59 | XRR_ITS ---
PROCEDURE INFORMATION: Exam: XR Chest Exam date and time: 05/29/2023 9:27 PM Age: 82 years old Clinical indication: Shortness of breath; Additional info: SOB TECHNIQUE: Imaging protocol: Radiologic exam of the chest. Views: 1 view. Other technique: The patient is rotated to the left. COMPARISON: CR (CHEST, ) 04/10/2023 12:22 AM FINDINGS: Lungs: Stable mild hyperinflation of the lungs. Interval development of mild interstitial pulmonary edema. Pleural spaces: Interval development of a small right pleural effusion. No pneumothorax. Heart/Mediastinum: Stable marked enlargement of the cardiac silhouette. Mediastinal contours are unremarkable. An endovascular stent in the visualized abdominal aorta is stable. Vasculature: Stable vascular calcifications in the aorta. Bones/joints: Unremarkable for age. XR/XR chest 1V portable [id number] IMPRESSION: 1. Interval development of mild interstitial pulmonary edema and a small right pleural effusion. 2. Incidental/nonacute findings are listed in the report.
[2023-05-29 21:08] LABS: Glucose Point of Care 237 mg/dL (70-110)
[2023-05-29 21:09] VITALS: PULSE 108; RESP 39; O2SAT 97
[2023-05-29 21:09] LABS: Basophils % 0.3 %; Eosinophils # 0.5 10^3/uL (0.0-0.8); Eosinophils % 4.5 %; Hematocrit 39.9 % (37.0-47.0); Hemoglobin 11.9 g/dL (11.5-15.3); Lymphocytes # 4.7 10^3/uL (0.8-4.8); Lymphocytes % 47.4 %; Mean Corpuscular HGB Conc 29.8 g/dL (30.0-36.0); Mean Corpuscular Hemoglobin 27.9 pg (28.0-34.0); Mean Corpuscular Volume 93.4 fl (81-99); Mean Platelet Volume 10.1 fL (7.4-10.4); Monocytes % 10.5 %; Neutrophils # 3.67 10^3/uL (1.8-7.7); Nucleated Red Blood Cells % 0 %; Platelet Count 420 10^3/cmm (130-400); Red Blood Count 4.27 10^6/uL (4.1-5.3); Red Cell Distribution Width 14.2 % (12.1-15.1); White Blood Count 9.9 10^3/uL (4.0-10.0)
[2023-05-29 21:10] VITALS: PULSE 109; RESP 39; O2SAT 98
[2023-05-29] MEDS: LORazepam 2 mg/mL INJ 1 mL 0.5 MG IVP ×2 (21:10→21:29)
[2023-05-29] MEDS: ipratropium-albuterol 3 mL Neb INHALATION (21:13)
--- NOTE | 2023-05-29 21:14 | ECG_ITS ---
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 Measurements Intervals [place] Rate: 110 P: 0 VT: 0 QRS: -30 QRSD: 154 T: 76 QT: 385 QTc: 522 Interpretive Statements ATRIAL FLUTTER WITH RAPID VENTRICULAR RESPONSE LEFT BUNDLE BRANCH BLOCK [120+ ms QRS DURATION, 80+ ms Q/S IN V1/V2, 85+ ms R IN I/aVL/V5/V6] Compared to ECG 04/10/2023 00:12:30 Sinus tachycardia no longer present Electronically Signed On 05-30-2023 7:58:05 CDT by Jaxon Fernandes M.D. [id number]
--- NOTE | 2023-05-29 21:14 | W.ED.SOB ---
HPI - SOB/Dyspnea General: Chief Complaint: Shortness of Breath/Dyspnea Stated Complaint: SOB Time Seen by Provider: 05/29/23 20:59 History of Present Illness: HPI Narrative: This patient is an 82 year old presenting with severe respiratory distress. She presented to triage by private vehicle and was noted to have a sat in the 60's on her normal home oxygen. She is altered and anxious - moaning. Her daughter is with her and reports a history of COPD with worsening SOB over the past two days. They both had a cold that has settled into the chest. The patient has had a cough all day yesterday and has been using breathing treatments every few hours. She just started getting confused tonight and her daughter is very concerned about the confusion and the moaning as she hasn't seen her do that before. The patient also has a history of heart problems - including CHF - but she has not been complaining of chest pain. The patient does not want to be intubated or on a ventilator. She apparently did well on Bipap but required some sedation to tolerate it. [facility] ED PFSH: Medical History AAA (abdominal aortic aneurysm) Status post stent graft repair Anemia Atopic dermatitis B12 deficiency Breast CA Carotid artery disease CHF (congestive heart failure) Diastolic/Systolic EF 37% 12/14 Chronic kidney disease Chronic pain COPD (chronic obstructive pulmonary disease) CVA (cerebral vascular accident) Descending thoracic aortic 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, 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 Dyslipidemia History of COVID-12 Aug 2021 History of nonmelanoma skin cancer HTN (hypertension) Nicotine dependence, cigarettes, with unspecified nicotine-induced disorders Obesity Osteoporosis Pneumonia Renal artery stenosis Seasonal allergies Surgical History History of aortic aneurysm repair History of stent insertion of renal artery History of total mastectomy of left breast 04/[address] Vo at [place], [place] S/P cholecystectomy S/P hysterectomy S/P mastectomy (08/2009) Right modified radical mastectomy S/P tonsillectomy Family History Other Stroke Social History Smoking and tobacco status: current every day smoker cigarettes Packs smoked per day: 1 Years cigarettes smoked: 65 Alcohol intake: never Substance/Drug Use: never Physical Exam Const: GENERAL APPEARANCE: in distress and ill appearing ORIENTATION/CONSCIOUSNESS: Yes oriented to person HENMT: HEAD & SCALP: normal to inspection FACE & SINUS: normal facial exam Eye: GENERAL EYE: appearance normal, both eyes and all related structures Neck/C-Spine: COMMON NORMALS: supple Chest: COMMONS NORMALS: normal inspection of the chest Resp: EFFORT & INSPECTION: Yes tachypneic, Yes respiratory distress, Yes grunting and Yes uses accessory muscles AUSCULTATION: crackles, wheezes and diminished lung sounds Cardio: OTHER: tachycardic, no murmurs or gallops appreciated GI: COMMON NORMALS: Normal to inspection, nondistended, normoactive bowel sounds present, Soft to palpation and non-tender INSPECTION: Yes normal to inspection AUSCULTATION: Yes normoactive bowel sounds PALPATION: Yes Soft to palpation Back/Pelvis: COMMON NORMALS: thoracic and lumbar spine normal to inspection Extremity: COMMON NORMALS: normal to inspection Neuro: SENSORIUM/ORIENTATION: Yes oriented to person OTHER: agitated, moaning, not answering questions Skin: COMMON NORMALS: no rashes or lesions noted and turgor normal GENERAL SKIN EXAM: no rashes or lesions noted and turgor normal Course Vital Signs: Vital signs: Vital Signs Pulse Rate 68 05/29/23 22:06 Respiratory Rate 20 H 05/29/23 22:06 Blood Pressure 82/45 05/29/23 22:06 Pulse Oximetry 95 05/29/23 22:06 Oxygen Delivery Me thod BiPAP 05/29/23 22:06 Fraction of Inspir ed Oxygen 50 05/29/23 21:10 MDM - SOB/Dyspnea Medical Decision Making Severe respiratory distress. Recent URI symptoms per daughter. History of COPD and CHF. No improvement at home with nebs. Started on bipap here - she required ativan to tolerate the bipap. She confirms that she does not want to be intubated. Duoneb and zofran ordered. Will need to redose with ativan as well. Improving - tolerating ativan better. She did have one episode of vomiting. Duoneb, solumedrol given. CXR with haziness in the right lower lobe - pulmonary congestion vs infiltrate. BNP also elevated. EKG with LBBB - consistent with prior EKGs. ABG with ph 7.1, CO2 79. Will admit for further management. Pressure dropped on the bipap and with the ativan. Lowest was 80's systolic and then it came back up to 113. Dr. Desir will admit to ICU - she requested a central line - but when I discussed this with the patient's daughter she didn't really want to consent to it unless it was really necessary. As the pressure was back up - it was hard to say that it was necessary right now - although daughter understands that it might be needed overnight and would there would be a delay getting it once she leaves the ED. She asked if a PICC line was possible (daughter has one herself currently). We decided to place a second IV peripherally rather than place a central line at this time. Lab Data 05/29/23 21:00 05/29/23 21:00 Labs/Radiology: Radiology Impressions Chest X-Ray 05/29/23 20:59 IMPRESSION: 1. Interval development of mild interstitial pulmonary edema and a small right pleural effusion. 2. Incidental/nonacute findings are listed in the report. Laboratory Results WBC 9.9 10^3/uL (4.0-10.0) 05/29/23 21:00 RBC 4.27 10^6/uL (4.1-5.3) 05/29/23 21:00 Hgb 11.9 g/dL (11.5-15.3) 05/29/23 21:00 Hct 39.9 % (37.0-47.0) 05/29/23 21:00 MCV 93.4 fl (81-99) 05/29/23 21:00 MCH 27.9 pg (28.0-34.0) L 05/29/23 21:00 MCHC 29.8 g/dL (30.0-36.0) L 05/29/23 21:00 RDW 14.2 % (12.1-15.1) 05/29/23 21:00 Plt Count 420 10^3/cmm (130-400) H 05/29/23 21:00 MPV 10.1 fL (7.4-10.4) 05/29/23 21:00 Neut % (Auto) 37.0 % 05/29/23 21:00 Lymph % (Auto) 47.4 % 05/29/23 21:00 Wilkes % (Auto) 10.5 % 05/29/23 21:00 Eos % (Auto) 4.5 % 05/29/23 21:00 Baso % (Auto) 0.3 % 05/29/23 21:00 Neut # (Auto) 3.67 10^3/uL (1.8-7.7) 05/29/23 21:00 Lymph # (Auto) 4.7 10^3/uL (0.8-4.8) 05/29/23 21:00 Wilkes # (Auto) 1.0 10^3/uL (0.2-0.9) H 05/29/23 21:00 Eos # (Auto) 0.5 10^3/uL (0.0-0.8) 05/29/23 21:00 Baso # (Auto) 0.0 10^3/uL (0.0-0.1) 05/29/23 21:00 Nucleated RBC % (auto) 0 % 05/29/23 21:00 Nucleated RBCs # 0.0 /100WBC 05/29/23 21:00 PT 14.70 SECONDS (12.1-14.9) 05/29/23 21:00 INR 1.11 (0.8-1.2) 05/29/23 21:00 Specimen Type Arterial 05/29/23 21:10 Sample Site Radial, left 05/29/23 21:10 ABG pH 7.14 (7.35-7.45) L* 05/29/23 21:10 ABG pCO2 79.5 mmHg (35-45) H* 05/29/23 21:10 ABG pO2 254.0 mmHg (80.0-100.0) H 05/29/23 21:10 ABG HCO3 27.2 mmol/L (22-26) H 05/29/23 21:10 ABG Base Excess -3.3 mmol/L (-2.0-2.0) L 05/29/23 21:10 Carlos Alberto Test Pos 05/29/23 21:10 Hematocrit 36.3 % (37-47) L 05/29/23 21:10 O2 Delivery Device Bipap 05/29/23 21:10 FiO2 50.0 % 05/29/23 21:10 Garment Form Assembler ID Wendy 05/29/23 21:10 Sodium 141 mmol/L (136-145) 05/29/23 21:00 Potassium 3.8 mmol/L (3.5-5.1) 05/29/23 21:00 Chloride 100 mmol/L (98-107) 05/29/23 21:00 Carbon Dioxide 26 mmol/L (22-29) 05/29/23 21:00 Anion Gap 18.8 (5-19) 05/29/23 21:00 BUN 10 mg/dL (8-23) 05/29/23 21:00 Creatinine 1.3 mg/dL (0.5-0.9) H 05/29/23 21:00 GFR Calculation Not Reportable 05/29/23 21:00 Glucose 227 mg/dL (65-115) H 05/29/23 21:00 POC Glucose 237 mg/dL (70-110) H 05/29/23 21:03 Calculated Osmolality 298 mOsm/kg (285-295) H 05/29/23 21:00 Calcium 8.6 mg/dL (8.5-10.5) 05/29/23 21:00 Total Bilirubin 0.2 mg/dL (0.15-1.2) 05/29/23 21:00 AST 15 U/L (0-32) 05/29/23 21:00 ALT 10 U/L (0-33) 05/29/23 21:00 Alkaline Phosphatase 176 U/L (35-105) H 05/29/23 21:00 Troponin T Baseline 28 ng/L (0-10) H 05/29/23 21:00 NT-Pro-B Natriuret Pep 4194 pg/mL (0-450) H 05/29/23 21:00 Total Protein 6.3 g/dL (6.6-8.7) L 05/29/23 21:00 Albumin 3.8 g/dL (3.5-5.2) 05/29/23 21:00 Globulin 2.5 g/dL (1.3-4.6) 05/29/23 21:00 Critical Care Time Critical Care Time: Critical Care Time: Yes Total Critical Care Time: 35 Attestation: This case had a high probability of a clinically significant, sudden, or life threatening deterioration of this patient's condition which required my full and direct attention, intervention and personal management. History obtained from family and from prior records. Multiple reassessments. 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
[2023-05-29 21:16] VITALS: BP 135/92; PULSE 108; RESP 25; O2SAT 97
[2023-05-29 21:21] LABS: Arterial Blood Gas Hematocrit 36.3 % (37-47); Base Excess ABG -3.3 mmol/L (-2.0-2.0); Blood Gas Allen Test Pos; Blood Gas Operator Identificat WALCI; Blood Gas Sample Site Radial, left; Blood Gas Sample Type Arterial; HCO3 ABG 27.2 mmol/L (22-26); Oxygen Device BIPAP
[2023-05-29 21:22] LABS: ABG PCO2 79.5 mmHg (35-45); ABG PH Result 7.14 (7.35-7.45)
[2023-05-29 21:24] LABS: INR 1.11 (0.8-1.2)
[2023-05-29] MEDS: ondansetron 2 mg/ML SDV 2 mL 4 MG IVP (21:30)
[2023-05-29 21:31] LABS: Troponin(5th) Baseline 28 ng/L (0-10)
[2023-05-29 21:40] LABS: Alanine Aminotransferase 10 U/L (0-33); Albumin Level 3.8 g/dL (3.5-5.2); Alkaline Phosphatase 176 U/L (35-105); Anion Gap 18.8 (5-19); Aspartate Amino Transferase 15 U/L (0-32); Blood Urea Nitrogen 10 mg/dL (8-23); Calcium 8.6 mg/dL (8.5-10.5); Carbon Dioxide 26 mmol/L (22-29); Chloride 100 mmol/L (98-107); Globulin 2.5 g/dL (1.3-4.6); Glucose 227 mg/dL (65-115); NT Pro B Type Natriuretic Pept 4194 pg/mL (0-450); Osmolality Calculated 298 mOsm/kg (285-295); Potassium 3.8 mmol/L (3.5-5.1); Sodium 141 mmol/L (136-145); Total Bilirubin 0.2 mg/dL (0.15-1.2); Total Protein 6.3 g/dL (6.6-8.7)
[2023-05-29] MEDS: methylPREDNISolone sod succ 125 mg SDV IVP (21:51)
[2023-05-29 21:53] VITALS: BMI 44.4
[2023-05-29 22:06] VITALS: BP 82/45; PULSE 68; RESP 20; O2SAT 95
--- NOTE | 2023-05-29 22:11 | PC.NURSE ---
ER aware of low BP 9783
--- NOTE | 2023-05-29 22:31 | P.HP_ITS ---
Providers/Chief Complaint Primary Care Provider: Patti Irwin DO Chief Complaint: SOB History of Present Illness Paloma Slater is a 82 year old female who has had multiple admission in the past related to COPD exacerbation, hypercarbia, she is an active smoker, daughter is medical DPOA, patient is full code, presented today with chief complaint of worsening of shortness of breath. Daughter stating that she recently caught flulike symptoms and made her mother sick today he started experiencing shortness of breath with some confusion that prompted her visit to the ER. In the ER she was diagnosed with acute hypoxic hypercapnic respite failure, requiring BiPAP, she was very irritable, ER physician gave her Ativan at the time of evaluation second blood gas was done by myself which showed improvement in PCO2, she will be transferred to ICU for overnight monitoring As per the daughter patient is still smoking a few cigarettes a day, she does have a CPAP machine at home, she does not use BiPAP or trilogy Information has been provided by the daughter, patient is very drowsy at this point to give me history after getting Ativan Review of Systems General: Reports: ROS unobtainable due to mental status Medications/Allergies Home Medications Medication Instructions Recorded Confirmed Last Taken Type flash glucose scanning reader #1 ea 03/04/22 03/12/23 Unknown Rx (FreeStyle [place] 14 Day [place]) flash glucose sensor (FreeStyle #2 ea 03/04/22 03/12/23 Unknown Rx Odell 14 Day Sensor kit) blood-glucose meter #1 ea 03/06/22 03/12/23 Unknown Rx pen needle, diabetic 32 gauge x #100 ea 04/12/22 03/12/23 Unknown Rx 5/32 (TechLITE Pen Needle) fluticasone propionate 50 2 spray intranasal DAILY PRN Nasal 06/27/22 03/12/23 02/15/23 History mcg/actuation nasal Congestion spray,suspension (Flonase Allergy Relief) ondansetron 4 mg disintegrating 4 mg PO Q8H PRN nausea and 06/27/22 03/12/23 Unknown Rx tablet vomiting #15 tabs overnight oximetry #1 ea 12/17/22 03/12/23 Unknown Rx atorvastatin 80 mg tablet 80 mg PO BEDTIME #90 tabs 12/26/22 03/12/23 02/14/23 Rx breast prosthesis bilateral and #1 ea 02/05/23 03/12/23 Unknown Rx bras x4 famotidine 20 mg tablet 20 mg PO BID 02/15/23 03/12/23 02/15/23 History budesonide-formoterol HFA 160 2 puff inhalation Q12H #10.2 grams 02/17/23 03/12/23 Unknown Rx mcg-4.5 mcg/actuation aerosol inhaler (Symbicort) albuterol sulfate 90 mcg/actuation 2 puff inhalation 6XD PRN 02/19/23 03/12/23 Unknown History aerosol inhaler (Ventolin HFA) Shortness Of Breath diphenhydramine HCl 25 mg capsule 25 mg PO BEDTIME 02/19/23 03/12/23 Unknown History (Benadryl) loratadine 10 mg tablet 10 mg PO QAM 02/19/23 03/12/23 Unknown History mometasone 0.1 % topical solution 1 applic topical DAILY PRN Itching 02/19/23 03/12/23 Unknown History furosemide 40 mg tablet 40 mg PO DAILY@0800 #30 tabs 02/21/23 03/12/23 Unknown Rx ipratropium 0.5 mg-albuterol 3 mg 3 ml inhalation Q4H PRN shortness 02/21/23 03/12/23 Unknown Rx (2.5 mg base)/3 mL nebulization of breath or wheezing #180 mL soln buspirone 5 mg tablet 5 mg PO .q hs #30 tabs 03/03/23 03/12/23 Unknown Rx fluconazole 200 mg tablet 200 mg PO DAILY #14 tabs 03/03/23 03/12/23 Unknown Rx (Diflucan) nystatin 100,000 unit/mL oral 5 ml PO TID #60 mL 03/03/23 03/12/23 Unknown Rx suspension potassium chloride 10 mEq 10 meq PO BID #270 caps 03/03/23 03/12/23 Unknown Rx capsule,extended release budesonide 160 mcg-glycopyr 9 2 inh inhalation BID #10.7 grams 03/04/23 03/12/23 Unknown Rx mcg-formot 4.8 mcg/actuation HFA inhaler (Breztri Aerosphere) doxycycline hyclate 100 mg tablet 100 mg PO BID 03/04/23 03/12/23 Unknown History clopidogrel 75 mg tablet 75 mg PO BEDTIME #90 tabs 03/13/23 Unknown Rx glipizide 5 mg tablet See Rx Instructions .Route 03/13/23 Unknown Rx .COMPLEX #90 tabs lisinopril 2.5 mg tablet See Rx Instructions .Route 03/25/23 Unknown Rx .COMPLEX #90 tabs montelukast 10 mg tablet See Rx Instructions .Route 03/25/23 Unknown Rx .COMPLEX #90 tabs insulin glargine 100 unit/mL (3 14 unit (0.14 mL) SUBCUT BEDTIME 04/03/23 Unknown Rx mL) subcutaneous pen (Lantus #15 mL Solostar U-100 Insulin) prednisone 50 mg tablet 50 mg PO DAILY #5 tabs 04/10/23 Unknown Rx blood sugar diagnostic (Blood #120 ea 05/12/23 Unknown Rx Glucose Test strips) oxycodone 15 mg tablet 15 mg PO Q6H PRN pain 30 days #120 05/12/23 Unknown Rx tabs carvedilol 6.25 mg tablet 6.25 mg PO BID #60 tabs 05/16/23 Unknown Rx Allergies Allergy/AdvReac Type Severity Reaction Status Date / Time adhesive tape Allergy Unknown Unknown Verified 03/12/23 13:56 bacitracin Allergy Unknown Unknown Verified 03/12/23 13:56 [From Neosporin ([id number])] codeine Allergy Unknown Unknown Verified 03/12/23 13:56 neomycin Allergy Unknown Unknown Verified 03/12/23 13:56 [From Neosporin ([id number])] penicillamine Allergy Unknown Unknown Verified 03/12/23 13:56 Penicillins Allergy Unknown Unknown Verified 03/12/23 13:56 polymyxin B Allergy Unknown Unknown Verified 03/12/23 13:56 [From Neosporin ([id number]-[id number])] prochlorperazine Allergy Unknown Unknown Verified 03/12/23 13:56 [From Compazine] Sulfa (Sulfonamide Allergy Unknown Unknown Verified 03/12/23 13:56 Antibiotics) PFSH Acute PFSH: Medical History AAA (abdominal aortic aneurysm) Status post stent graft repair Anemia Atopic dermatitis B12 deficiency Breast CA Carotid artery disease CHF (congestive heart failure) Diastolic/Systolic EF 37% 12/14 Chronic kidney disease Chronic pain COPD (chronic obstructive pulmonary disease) CVA (cerebral vascular accident) Descending thoracic aortic 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, 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 Dyslipidemia History of COVID-19 Jul 2021 History of nonmelanoma skin cancer HTN (hypertension) Nicotine dependence, cigarettes, with unspecified nicotine-induced disorders Obesity Osteoporosis Pneumonia Renal artery stenosis Seasonal allergies Surgical History History of aortic aneurysm repair History of stent insertion of renal artery History of total mastectomy of left breast 04/[address] Vo at [place], [place] S/P cholecystectomy S/P hysterectomy S/P mastectomy (08/2009) Right modified radical mastectomy S/P tonsillectomy Family History Other Stroke Social History Smoking and tobacco status: current every day smoker cigarettes Packs smoked per day: 1 Years cigarettes smoked: 65 Alcohol intake: never Substance/Drug Use: never Vitals/I&O/Wt Last Vital Signs Pulse 68 05/29/23 22:06 Resp 20 H 05/29/23 22:06 BP 82/45 05/29/23 22:06 Pulse Ox 95 05/29/23 22:06 O2 Del Method BiPAP 05/29/23 22:06 FiO2 50 05/29/23 21:10 Weight last 48 hrs Weight 99.79 kg Physical Exam Narrative: Morbidly obese female We will be redirectable Drowsy after getting Ativan Nonfocal neuro exam Currently on BiPAP Extremity edema present Abdomen distended however soft S1, S2 variable Family is at the bedside Neuro exam is limited Data 05/29/23 21:00 05/29/23 21:00 A&P Assessment and plan (1) Respiratory failure: (2) COPD (chronic obstructive pulmonary disease): (3) CHF (congestive heart failure): (4) Acute respiratory failure with hypoxia and hypercarbia: (5) Anxiety: (6) Paroxysmal atrial fibrillation: (7) MYRA (generalized anxiety disorder): (8) CHF (congestive heart failure): Qualifiers: Heart failure type: diastolic Heart failure chronicity: chronic Qualified Code(s): I50.32 - Chronic diastolic (congestive) heart failure (9) Hypersomnia: (10) Chronic anticoagulation: (11) Atrial fib/flutter, transient: Plan Acute COPD exacerbation Acute hypoxic hypercarbic restaurant failure Preserved ejection fraction heart failure exacerbation: We will give her IV Lasix Noncompliant Active smoker Patient will qualify for BiPAP/trilogy considering hypoxia and hypercapnia To prevent readmissions she might need approval for BiPAP machine As per the daughter she was sick with some cold flu related symptoms Concern for right lower lobe pneumonia Start patient on antibiotics We will give her p.o. prednisone Continue BiPAP in the ICU for now Considering recurrent admissions in the hospital I will start patient on broad- spectrum antibiotics of vancomycin and cefepime request MRSA nares 's request. Sputum cultures culture Patient carries history of atrial flutter keep her on Eliquis for now High risk for intubation However at this point she is improving on BiPAP Family at the bedside Patient is full code Chest x-ray reviewed, information taken from her daughter at the bedside Attestations Medical Necessity Statement*: Than 2 midnights anticipated Diagnoses Respiratory failure J96.90 COPD (chronic obstructive pulmonary disease) J44.9 CHF (congestive heart failure) I50.9 Acute respiratory failure with hypoxia and hypercarbia J96.01; J96.02 Anxiety F41.9 Paroxysmal atrial fibrillation I48.0 MYRA (generalized anxiety disorder) F41.1 Hypersomnia G47.10 Chronic anticoagulation Z79.01 Atrial fib/flutter, transient
[2023-05-29] MEDS: cefTRIAXone 1,000 MG in sodium chloride 0.9% (plus) 50 ML 100 MG IV (22:54)
[2023-05-29 22:55] LABS: ABG PCO2 57.3 mmHg (35-45); Arterial Blood Gas Hematocrit 32.7 % (37-47); Base Excess ABG 0.9 mmol/L (-2.0-2.0); Blood Gas Allen Test Pos; Blood Gas Operator Identificat WALCI; Blood Gas Sample Site Radial, left; Blood Gas Sample Type Arterial; HCO3 ABG 28.1 mmol/L (22-26); Oxygen Device BIPAP; PO2 ABG 95.5 mmHg (80.0-100.0)
--- NOTE | 2023-05-29 23:00 | ECG_ITS ---
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 Measurements Intervals [place] Rate: 75 P: -61 [place]: 113 QRS: -29 QRSD: 155 T: 70 QT: 464 QTc: 519 Interpretive Statements SINUS RHYTHM INDETERMINATE AXIS INTRAVENTRICULAR CONDUCTION DELAY [130+ ms QRS DURATION] Compared to ECG 05/29/2023 21:14:38 Indeterminate axis now present Intraventricular conduction delay now present Atrial flutter no longer present Left bundle-branch block no longer present Electronically Signed On 05-30-2023 7:59:52 CDT by Jaxon Fernandes M.D. [id number]
[2023-05-29 23:28] LABS: D Dimer 1.89 ug/mIFEU (0-0.59)
[2023-05-29] MEDS: azithromycin 500 MG in sodium chloride 0.9% 250 ML 250 MG IV (23:33)
[2023-05-29 23:38] LABS: Add Urine Microscopic? YES; Bacteria Urine TRACE /hpf; Bilirubin Urine Neg (Negative); Blood Urine Neg (Negative); Glucose Urine UA Norm (Normal); Hyaline Casts Urine 0-4 /lpf; Ketones Urine Negative (Negative); Leukocyte Esterase Urine Negative (Negative); Mucus Urine 2+ /hpf; Nitrate Urine Negative (Negative); Protein Urine 1+ (Negative); RBC Urine 0-4 /hpf (0-2); Squamous Epithelial Cell Urine 0-4 /hpf (0-5); Transitional Epi Cells Urine 0-4 /hpf; Urine Appearance SL Hazy (CLEAR); Urine Color Yellow (Yellow); Urobilinogen Urine Neg (Negative); WBC Urine 0-4 /hpf (0-5); pH Urine 5 (5-7)
[2023-05-29 23:39] LABS: Add Urine Culture? No
[2023-05-29 23:43] LABS: Procalcitonin 0.05 ng/mL (0-0.5)
[2023-05-30] VITALS (102 sets, daily range): BP systolic 98–152; BP diastolic 37–100; PULSE 63–113; RESP 16–32; O2SAT 80–99
[2023-05-30 00:22] LABS: Troponin 5 2HR 41.71 ng/L (0-10)
[2023-05-30 00:36] LABS: Troponin 5 2HR Delta 13.71 ABS# (0-10)
[2023-05-30] MEDS: FUROsemide 10 mg/mL SDV 2mL 20 MG IVP (01:18)
[2023-05-30] MEDS: dexmedetomidine 400 MCG in sodium chloride 0.9% (100 ml) 100 ML IV (01:19)
[2023-05-30] MEDS: cefepime 2,000 MG in sodium chloride 0.9% (plus) 50 ML 100 MG IV ×2 (01:21→14:52)
[2023-05-30] MEDS: vancomycin 1,000 MG in sodium chloride 0.9% 250 ML 250 MG IV (01:34)
[2023-05-30] MEDS: ipratropium-albuterol 3 mL Neb INHALATION ×4 (03:22→20:32)
[2023-05-30 03:33] LABS: Basophils % 0.1 %; Eosinophils % 0.1 %; Hematocrit 36.5 % (37.0-47.0); Hemoglobin 10.9 g/dL (11.5-15.3); Lymphocytes # 0.4 10^3/uL (0.8-4.8); Lymphocytes % 4.4 %; Mean Corpuscular HGB Conc 29.9 g/dL (30.0-36.0); Mean Corpuscular Hemoglobin 27.3 pg (28.0-34.0); Mean Corpuscular Volume 91.3 fl (81-99); Mean Platelet Volume 10.3 fL (7.4-10.4); Monocytes # 0.1 10^3/uL (0.2-0.9); Monocytes % 0.8 %; Neutrophils # 9.46 10^3/uL (1.8-7.7); Neutrophils % 94.4 %; Nucleated Red Blood Cells % 0 %; Platelet Count 343 10^3/cmm (130-400); Red Cell Distribution Width 13.9 % (12.1-15.1)
[2023-05-30 03:56] LABS: Anion Gap 12.8 (5-19); Blood Urea Nitrogen 12 mg/dL (8-23); C Reactive Protein 19.2 mg/L (0.0-4.9); Carbon Dioxide 27 mmol/L (22-29); Chloride 103 mmol/L (98-107); Creatinine Clr Calc Pharmacy 58.9038; Glucose 291 mg/dL (65-115); Osmolality Calculated 298 mOsm/kg (285-295); Potassium 3.8 mmol/L (3.5-5.1); Sodium 139 mmol/L (136-145)
[2023-05-30 04:05] LABS: Magnesium 1.8 mg/dL (1.7-2.3)
[2023-05-30 04:12] LABS: Vitamin B12 610 pg/mL (232-1245)
[2023-05-30 10:14] LABS: Glucose Point of Care 304 mg/dL (70-110)
[2023-05-30] MEDS: insulin lispro 100 unit/1 mL SUBCUT ×3 (10:15→18:56)
[2023-05-30] MEDS: dexmedetomidine 400 MCG in sodium chloride 0.9% (100 ml) 100 ML 18.16 MCG IV ×2 (10:16→18:51)
[2023-05-30 11:13] LABS: Glucose Point of Care 309 mg/dL (70-110)
--- NOTE | 2023-05-30 12:48 | PC.PHAR ---
PTS SON VERIFIED PTS MEDICATIONS-PTS SON STATES THE PT TAKES THE MEDICATIONS ENTERED PTS SON STATES THEY ALSO GET THE PTS MEDICATION IN PILL PACKS FROM [facility] [place] STATES THEY NO LONGER PUT ELIQUIS 5MG BID FILLED 02/16/23 30D/S OR BUSPAR 5MG HS LAST FILLED 03/03/23 30/S IN THE PTS PILL PACKS-PTS SON STATES THE PT IS NO LONGER TAKING ELIQUIS EITHER-
[2023-05-30] MEDS: insulin glargine 100 units/1 mL 14 UNIT SUBCUT (14:52)
[2023-05-30 14:58] LABS: Glucose Point of Care 175 mg/dL (70-110)
--- NOTE | 2023-05-30 17:10 | P.PN_ITS ---
Subjective Subjective: Patient was seen and examined this morning, currently she was extremely sleepy, on Precedex drip, on BiPAP, a.m. ABG reviewed, has shown improvement in pH as well as hypercapnia, good urine output on Lasix, MRSA PCR negative, bacterial antigen negative. Follow respiratory viral panel, sputum Gram stain and culture. Medications: Medication Review Details: Generic Name Dose Route Start Last Admin Trade Name Freq PRN Reason Stop Dose Admin Albuterol/Ipratrop ium 3 ml 05/30/23 00:44 05/30/23 13:04 Ipratropium-Albu terol 3 Ml Neb INHALATION 3 ml Q6H PRN Administration SHORTNESS OF VALERIANO TH Apixaban 5 mg 05/30/23 09:00 05/30/23 10:20 Apixaban 5 Mg Ta blet PO Not Given BID@0900,2100 MICHELE Carvedilol 6.25 mg 05/30/23 09:00 05/30/23 10:21 Carvedilol 6.25 Mg Tablet PO Not Given BID MICHELE Furosemide 20 mg 05/30/23 00:44 05/30/23 01:18 Furosemide 10 Mg /Ml Sdv 2ml IVP 20 mg Q24H MICHELE Administration Cefepime HCl 2,000 mg/ Sodium 50 mls @ 100 mls/ hr 05/30/23 00:44 05/30/23 15:22 Chloride IV Infused Q12H MICHELE Infusion Protocol Vancomycin HCl 1,0 00 mg/ 250 mls @ 250 mls /hr 05/30/23 01:00 05/30/23 02:48 Sodium Chloride IV Infused Q36H MICHELE Infusion Dexmedetomidine HC l 400 mcg/ 104 mls @ 0 mls/h r 05/30/23 01:15 05/30/23 10:16 Sodium Chloride IV 0.7 mcg/kg/hr .Q0M MICHELE 18.16 mls/hr Administration Protocol Per Protocol Insulin Glargine 14 unit 05/30/23 13:00 05/30/23 14:52 Insulin Glargine 100 Units/1 Ml SUBCUT 14 unit DAILY MICHELE Administration Insulin Human Lisp ro 0 unit 05/30/23 08:00 05/30/23 12:49 Insulin Lispro 1 00 Unit/1 Ml SUBCUT 12 unit TIDWM MICHELE Administration Protocol Lisinopril 2.5 mg 05/30/23 09:00 05/30/23 10:21 Lisinopril 2.5 M g Tablet PO Not Given DAILY MICHELE Prednisone 40 mg 05/30/23 09:00 05/30/23 10:21 Prednisone 20 Mg Tablet PO Not Given DAILY MICHELE Vitals/I&O/Wt Last Vital Signs Pulse 68 05/30/23 16:15 Resp 22 H 05/30/23 16:15 BP 135/56 05/30/23 16:15 Pulse Ox 94 05/30/23 16:15 O2 Del Method BiPAP 05/30/23 13:05 FiO2 35 05/30/23 16:00 05/30/23 05/30/23 05/30/23 06:59 14:59 22:59 Intake Total 610.858 / 610.858 93.142 / 93.142 50 / 143.142 Output Total 1950 / 1950 Balance -1339.142 / -1339.142 93.142 / 93.142 50 / 143.142 Weight last 48 hrs Weight 99.79 kg Physical Exam HENMT: COMMON NORMALS: normocephalic and atraumatic HEAD & SCALP: normocephalic and atraumatic Resp: OTHER: Diminished air entry bilaterally Cardio: COMMON NORMALS: regular rate, regular rhythm, S1 normal heart sound present, S2 normal heart sound present, No gallops present (Cardio), No murmurs present (Cardio), No rub (Cardio) and Peripheral pulses 2+ throughout RATE: regular rate RHYTHM: regular rhythm HEART SOUNDS: S1 normal heart sound present and S2 normal heart sound present PERIPHERAL PULSES: Peripheral pulses 2+ throughout GI: COMMON NORMALS: Normal to inspection, nondistended, normoactive bowel sounds present, Soft to palpation, non-tender, No hepatosplenomegaly present and no masses AUSCULTATION: Yes normoactive bowel sounds PALPATION: Yes Soft to palpation and Yes No hepatosplenomegaly present RECTAL EXAM: deferred Extremity: COMMON NORMALS: no clubbing, cyanosis or edema and no pedal edema Urinary Catheter Management: Matias: Cath Placed During This Visit: yes Reason for Continuing Indwelling Catheter: Accurate Measurement of Urinary Output in Critically Ill Patients Urinary Catheter Date of Insertion: 05/29/23 Urinary Catheter Time of Insertion: 23:16 Data 05/30/23 03:05 05/30/23 03:05 Micro: Microbiology 05/29/23 23:20 MRSA Culture - Final Nose 05/29/23 23:19 Bacterial Antigens - Final Urine,Clean Catch 05/29/23 23:38 Blood Culture - Preliminary Blood SPECIMEN COLLECTED 05/29/23 23:30 Blood Culture - Preliminary Blood SPECIMEN COLLECTED A&P Assessment and plan (1) Respiratory failure: (2) COPD (chronic obstructive pulmonary disease): (3) CHF (congestive heart failure): (4) Acute respiratory failure with hypoxia and hypercarbia: (5) Anxiety: (6) Paroxysmal atrial fibrillation: (7) MYRA (generalized anxiety disorder): (8) Hypersomnia: (9) Chronic anticoagulation: (10) Atrial fib/flutter, transient: Plan Acute COPD exacerbation Acute hypoxic hypercarbic restaurant failure Preserved ejection fraction heart failure exacerbation: We will give her IV Lasix Noncompliant Active smoker Patient will qualify for BiPAP/trilogy considering hypoxia and hypercapnia To prevent readmissions she might need approval for BiPAP machine As per the daughter she was sick with some cold flu related symptoms Concern for right lower lobe pneumonia Start patient on antibiotics We will give her p.o. prednisone Continue BiPAP in the ICU for now Considering recurrent admissions in the hospital I will start patient on broad- spectrum antibiotics of vancomycin and cefepime request MRSA nares 's request. Sputum cultures culture Patient carries history of atrial flutter keep her on Eliquis for now High risk for intubation However at this point she is improving on BiPAP Family at the bedside Patient is full code Chest x-ray reviewed, information taken from her daughter at the bedside Attestations Medical Necessity Statement*: To be in hospital for management of respiratory failure Coding Level of Care Code Acute Code for [facility] Diagnoses Respiratory failure J96.90 COPD (chronic obstructive pulmonary disease) J44.9 CHF (congestive heart failure) I50.9 Acute respiratory failure with hypoxia and hypercarbia J96.01; J96.02 Anxiety F41.9 Paroxysmal atrial fibrillation I48.0 MYRA (generalized anxiety disorder) F41.1 Hypersomnia G47.10 Chronic anticoagulation Z79.01 Atrial fib/flutter, transient
[2023-05-30 18:57] LABS: Glucose Point of Care 166 mg/dL (70-110)
[2023-05-30 20:47] LABS: Adenovirus Not Detected (NOT DETECT); Chlamydia Pneumoniae Not Detected (NOT DETECT); Coronavirus 229E,HKU1,NL63,OC4 Not Detected (NOT DETECT); Human Metapneumovirus Not Detected (NOT DETECT); Human Rhinovirus/Enterovirus Detected (NOT DETECT); Influenza A Not Detected (NOT DETECT); Influenza A H1 Not Detected (NOT DETECT); Influenza A H1-2009 Not Detected (NOT DETECT); Influenza A H3 Not Detected (NOT DETECT); Influenza B Not Detected (NOT DETECT); Mycoplasma Pneumoniae Not Detected (NOT DETECT); Parainfluenza Virus Type 1 Not Detected (NOT DETECT); Parainfluenza Virus Type 2 Not Detected (NOT DETECT); Parainfluenza Virus Type 3 Not Detected (NOT DETECT); Parainfluenza Virus Type 4 Not Detected (NOT DETECT); Respiratory Syncytial Virus A Not Detected (NOT DETECT); Respiratory Syncytial Virus B Not Detected (NOT DETECT); SARS-COV-2 Not Detected (NOT DETECT)
[2023-05-30] MEDS: apixaban 5 mg Tablet PO (21:16)
[2023-05-30] MEDS: clopidogrel 75 mg Tablet PO (21:16)
[2023-05-30 22:00] LABS: Glucose Point of Care 141 mg/dL (70-110)
[2023-05-31] VITALS (59 sets, daily range): BP systolic 104–153; BP diastolic 46–83; PULSE 61–89; RESP 18–35; TEMP 36.5–37.4; O2SAT 81–98
[2023-05-31] MEDS: cefepime 2,000 MG in sodium chloride 0.9% (plus) 50 ML 100 MG IV ×2 (00:53→12:10)
[2023-05-31] MEDS: FUROsemide 10 mg/mL SDV 2mL 20 MG IVP ×2 (00:53→23:58)
[2023-05-31] MEDS: dexmedetomidine 400 MCG in sodium chloride 0.9% (100 ml) 100 ML 18.16 MCG IV (00:54)
[2023-05-31] MEDS: ipratropium-albuterol 3 mL Neb INHALATION ×2 (01:15→09:00)
[2023-05-31 03:02] LABS: Basophils % 0.1 %; Hematocrit 35.7 % (37.0-47.0); Hemoglobin 11.3 g/dL (11.5-15.3); Lymphocytes # 1.3 10^3/uL (0.8-4.8); Lymphocytes % 8.7 %; Mean Corpuscular HGB Conc 31.7 g/dL (30.0-36.0); Mean Corpuscular Hemoglobin 27.8 pg (28.0-34.0); Mean Corpuscular Volume 87.7 fl (81-99); Mean Platelet Volume 10.2 fL (7.4-10.4); Monocytes # 0.9 10^3/uL (0.2-0.9); Monocytes % 6.4 %; Neutrophils # 12.32 10^3/uL (1.8-7.7); Neutrophils % 84.5 %; Nucleated Red Blood Cells % 0 %; Platelet Count 338 10^3/cmm (130-400); Red Blood Count 4.07 10^6/uL (4.1-5.3); Red Cell Distribution Width 13.5 % (12.1-15.1); White Blood Count 14.6 10^3/uL (4.0-10.0)
[2023-05-31 03:17] LABS: Alanine Aminotransferase 9 U/L (0-33); Albumin Level 3.1 g/dL (3.5-5.2); Alkaline Phosphatase 154 U/L (35-105); Anion Gap 14.1 (5-19); Aspartate Amino Transferase 11 U/L (0-32); Blood Urea Nitrogen 15 mg/dL (8-23); Calcium 8.4 mg/dL (8.5-10.5); Carbon Dioxide 29 mmol/L (22-29); Chloride 101 mmol/L (98-107); Creatinine Clr Calc Pharmacy 70.6846; Glucose 219 mg/dL (65-115); Osmolality Calculated 300 mOsm/kg (285-295); Potassium 3.1 mmol/L (3.5-5.1); Sodium 141 mmol/L (136-145); Total Bilirubin 0.3 mg/dL (0.15-1.2); Total Protein 6.1 g/dL (6.6-8.7)
[2023-05-31 07:21] LABS: Glucose Point of Care 179 mg/dL (70-110)
[2023-05-31] MEDS: insulin lispro 100 unit/1 mL SUBCUT ×2 (08:27→18:28)
[2023-05-31] MEDS: insulin glargine 100 units/1 mL 14 UNIT SUBCUT (08:28)
[2023-05-31 11:52] LABS: Glucose Point of Care 108 mg/dL (70-110)
[2023-05-31] MEDS: albuterol 2.5 mg/3 mL Neb INHALATION ×2 (12:03→20:23)
[2023-05-31] MEDS: lisinopril 2.5 mg Tablet PO (12:12)
[2023-05-31] MEDS: predniSONE 20 mg Tablet 40 MG PO (12:12)
[2023-05-31] MEDS: carvedilol 6.25 mg Tablet PO ×2 (12:13→18:28)
[2023-05-31] MEDS: apixaban 5 mg Tablet PO ×2 (12:20→20:11)
--- NOTE | 2023-05-31 12:45 | PC.NURSE ---
Transfer Note Patient transferred to CSU room 106 from ICU via bed. Handoff report given to YOVANI Rodriguez. Patient oriented to environment and equipment. Covering service notified. Orders reviewed and will continue to monitor. Family notified. Patient transferred on 3LNC and is alert/oriented x4. No wounds or skin issues noted at this time. All patient belongings taken and placed at bedside.
[2023-05-31] MEDS: vancomycin 1,000 MG in sodium chloride 0.9% 250 ML 250 MG IV (13:33)
--- NOTE | 2023-05-31 14:30 | PC.NURSE ---
Patient arrived from ICU, family present at bedside. VS are stable. Patient oriented to room and call haile. Nurse will continue to monitor.
--- NOTE | 2023-05-31 14:56 | PM.PN ---
Subjective Subjective: Patient was seen and examined this morning, currently she is off BiPAP, shortness of breath is improved. Medications: Medication Review Details: Generic Name Dose Route Start Last Admin Trade Name Kee PRN Reason Stop Dose Admin Albuterol Sulfate 2.5 mg 05/31/23 12:00 05/31/23 12:03 Albuterol 2.5 Mg /3 Ml Neb INHALATION 2.5 mg QID.RESPIRATORY S CH Administration Albuterol/Ipratrop ium 3 ml 05/30/23 00:44 05/31/23 09:00 Ipratropium-Albu terol 3 Ml Neb INHALATION 3 ml Q6H PRN Administration SHORTNESS OF VALERIANO TH Apixaban 5 mg 05/30/23 09:00 05/31/23 12:20 Apixaban 5 Mg Ta blet PO 5 mg BID@0900,2100 MICHELE Administration Carvedilol 6.25 mg 05/30/23 09:00 05/31/23 12:13 Carvedilol 6.25 Mg Tablet PO 6.25 mg BID MICHELE Administration Clopidogrel Bisulf ate 75 mg 05/30/23 21:00 05/30/23 21:16 Clopidogrel 75 M g Tablet PO 75 mg BEDTIME MICHELE Administration Furosemide 20 mg 05/30/23 00:44 05/31/23 00:53 Furosemide 10 Mg /Ml Sdv 2ml IVP 20 mg Q24H MICHELE Administration Cefepime HCl 2,000 mg/ Sodium 50 mls @ 100 mls/ hr 05/30/23 00:44 05/31/23 12:59 Chloride IV Infused Q12H MICHELE Infusion Protocol Vancomycin HCl 1,0 00 mg/ 250 mls @ 250 mls /hr 05/30/23 01:00 05/31/23 14:41 Sodium Chloride IV Infused Q36H MICHELE Infusion Lidocaine HCl 5 ml / Potassium 205 mls @ 26.25 m ls/hr 05/31/23 11:15 05/31/23 12:11 Chloride IV 05/31/23 19:03 26.25 mls/hr ONCE ONE Administration Insulin Glargine 14 unit 05/30/23 13:00 05/31/23 08:28 Insulin Glargine 100 Units/1 Ml SUBCUT 14 unit DAILY MICHELE Administration Insulin Human Lisp ro 0 unit 05/30/23 08:00 05/31/23 11:58 Insulin Lispro 1 00 Unit/1 Ml SUBCUT Not Given TIDWM [facility] Protocol Lisinopril 2.5 mg 05/30/23 09:00 05/31/23 12:12 Lisinopril 2.5 M g Tablet PO 2.5 mg DAILY MICHELE Administration Prednisone 40 mg 05/30/23 09:00 05/31/23 12:12 Prednisone 20 Mg Tablet PO 40 mg DAILY MICHELE Administration Vitals/I&O/Wt Last Vital Signs Temp 98.7 F 05/31/23 13:00 Pulse 70 05/31/23 14:36 Resp 27 H 05/31/23 14:36 BP 109/67 05/31/23 14:36 Pulse Ox 90 05/31/23 14:36 O2 Del Method Nasal Cannula 05/31/23 13:00 O2 Flow Rate 2 05/31/23 11:55 FiO2 35 05/31/23 04:00 05/30/23 05/31/23 05/31/23 22:59 06:59 14:59 Intake Total 154 / 247.142 173.976 / 421.118 384.024 / 384.024 Output Total 100 / 100 1999 / 2099 Balance 54 / 147.142 -1826.024 / -1678.882 384.024 / 384.024 Weight last 48 hrs Weight 99.79 kg Physical Exam HENMT: COMMON NORMALS: normocephalic and atraumatic HEAD & SCALP: normocephalic and atraumatic Resp: OTHER: Diminished air entry bilaterally Cardio: COMMON NORMALS: regular rate, regular rhythm, S1 normal heart sound present, S2 normal heart sound present, No gallops present (Cardio), No murmurs present (Cardio), No rub (Cardio) and Peripheral pulses 2+ throughout RATE: regular rate RHYTHM: regular rhythm HEART SOUNDS: S1 normal heart sound present and S2 normal heart sound present PERIPHERAL PULSES: Peripheral pulses 2+ throughout GI: COMMON NORMALS: Normal to inspection, nondistended, normoactive bowel sounds present, Soft to palpation, non-tender, No hepatosplenomegaly present and no masses AUSCULTATION: Yes normoactive bowel sounds PALPATION: Yes Soft to palpation and Yes No hepatosplenomegaly present RECTAL EXAM: deferred Extremity: COMMON NORMALS: no clubbing, cyanosis or edema and no pedal edema Urinary Catheter Management: Matias: Cath Placed During This Visit: yes Reason for Continuing Indwelling Catheter: Accurate Measurement of Urinary Output in Critically Ill Patients Urinary Catheter Date of Insertion: 05/29/23 Urinary Catheter Time of Insertion: 23:16 Data 05/31/23 02:50 05/31/23 02:50 Micro: Microbiology 05/29/23 23:38 Blood Culture - Preliminary Blood NEGATIVE TO DATE 05/29/23 23:30 Blood Culture - Preliminary Blood NEGATIVE TO DATE 05/29/23 23:20 MRSA Culture - Final Nose 05/29/23 23:19 Bacterial Antigens - Final Urine,Clean Catch A&P Assessment and plan (1) Respiratory failure: (2) COPD (chronic obstructive pulmonary disease): (3) CHF (congestive heart failure): (4) Acute respiratory failure with hypoxia and hypercarbia: (5) Anxiety: (6) Paroxysmal atrial fibrillation: (7) MYRA (generalized anxiety disorder): (8) Hypersomnia: (9) Chronic anticoagulation: (10) Atrial fib/flutter, transient: Plan Acute COPD exacerbation Acute hypoxic hypercarbic restaurant failure Preserved ejection fraction heart failure exacerbation: We will give her IV Lasix Noncompliant Active smoker Patient will qualify for BiPAP/trilogy considering hypoxia and hypercapnia To prevent readmissions she might need approval for BiPAP machine As per the daughter she was sick with some cold flu related symptoms Concern for right lower lobe pneumonia Start patient on antibiotics We will give her p.o. prednisone Continue BiPAP in the ICU for now Considering recurrent admissions in the hospital I will start patient on broad-spectrum antibiotics of vancomycin and cefepime request MRSA giselle 's request. Sputum cultures culture Patient carries history of atrial flutter keep her on Eliquis for now High risk for intubation However at this point she is improving on BiPAP Family at the bedside Patient is full code Chest x-ray reviewed, information taken from her daughter at the bedside Attestations Medical Necessity Statement*: Needs to be in hospital for the management of COPD exacerbation. Coding Level of Care Code Acute Code for [facility] Diagnoses Respiratory failure J96.90 COPD (chronic obstructive pulmonary disease) J44.9 CHF (congestive heart failure) I50.9 Acute respiratory failure with hypoxia and hypercarbia J96.01; J96.02 Anxiety F41.9 Paroxysmal atrial fibrillation I48.0 MYRA (generalized anxiety disorder) F41.1 Hypersomnia G47.10 Chronic anticoagulation Z79.01 Atrial fib/flutter, transient
[2023-05-31 17:44] LABS: Glucose Point of Care 164 mg/dL (70-110)
[2023-05-31] MEDS: guaiFENesin 600 mg Tablet PO (18:28)
[2023-05-31] MEDS: clopidogrel 75 mg Tablet PO (20:12)
[2023-05-31] MEDS: budesonide 0.5 mg/2 mL Neb INHALATION (20:24)
[2023-05-31 21:02] LABS: Glucose Point of Care 147 mg/dL (70-110)
[2023-05-31] MEDS: morphine 4 mg/mL SDV 1 mL 1 MG IVP (23:10)
[2023-05-31] MEDS: ondansetron 2 mg/ML SDV 2 mL 4 MG IVP (23:57)
[2023-06-01] VITALS (9 sets, daily range): BP systolic 102–145; BP diastolic 49–89; PULSE 77–92; RESP 18–27; TEMP 37–37.2; O2SAT 85–96
[2023-06-01] MEDS: cefepime 2,000 MG in sodium chloride 0.9% (plus) 50 ML 100 MG IV
[2023-06-01] MEDS: oxyCODONE 5 mg IR Tab/Cap PO (00:36)
[2023-06-01 03:14] LABS: Hematocrit 35.4 % (37.0-47.0); Hemoglobin 11.1 g/dL (11.5-15.3); Lymphocytes # 1.2 10^3/uL (0.8-4.8); Lymphocytes % 15.4 %; Mean Corpuscular HGB Conc 31.4 g/dL (30.0-36.0); Mean Corpuscular Hemoglobin 27.4 pg (28.0-34.0); Mean Corpuscular Volume 87.4 fl (81-99); Mean Platelet Volume 10.2 fL (7.4-10.4); Monocytes # 0.7 10^3/uL (0.2-0.9); Monocytes % 8.2 %; Neutrophils % 76.1 %; Nucleated Red Blood Cells % 0 %; Platelet Count 363 10^3/cmm (130-400); Red Blood Count 4.05 10^6/uL (4.1-5.3); Red Cell Distribution Width 13.9 % (12.1-15.1); White Blood Count 7.9 10^3/uL (4.0-10.0)
[2023-06-01 03:29] LABS: Alanine Aminotransferase 9 U/L (0-33); Albumin Level 3.2 g/dL (3.5-5.2); Alkaline Phosphatase 138 U/L (35-105); Aspartate Amino Transferase 12 U/L (0-32); Blood Urea Nitrogen 18 mg/dL (8-23); Calcium 8.5 mg/dL (8.5-10.5); Carbon Dioxide 30 mmol/L (22-29); Chloride 96 mmol/L (98-107); Creatinine Clr Calc Pharmacy 70.6846; Globulin 2.9 g/dL (1.3-4.6); Glucose 124 mg/dL (65-115); Osmolality Calculated 287 mOsm/kg (285-295); Sodium 137 mmol/L (136-145); Total Bilirubin 0.4 mg/dL (0.15-1.2); Total Protein 6.1 g/dL (6.6-8.7)
[2023-06-01] MEDS: potassium chloride ER 20 mEq Tablet PO (04:21)
[2023-06-01] MEDS: diphenhydrAMINE 12.5 mg/5 mL UDC 10 mL PO (04:21)
[2023-06-01 06:21] LABS: Glucose Point of Care 141 mg/dL (70-110)
[2023-06-01] MEDS: insulin lispro 100 unit/1 mL SUBCUT (08:49)
[2023-06-01] MEDS: insulin glargine 100 units/1 mL 14 UNIT SUBCUT (08:49)
[2023-06-01] MEDS: acetaminophen 500 mg Tablet PO (08:49)
[2023-06-01] MEDS: predniSONE 20 mg Tablet 40 MG PO (08:50)
[2023-06-01] MEDS: guaiFENesin 600 mg Tablet PO (08:51)
[2023-06-01] MEDS: apixaban 5 mg Tablet PO (08:51)
[2023-06-01] MEDS: montelukast sodium 10 mg Tablet PO (08:51)
[2023-06-01] MEDS: budesonide 0.5 mg/2 mL Neb INHALATION (09:12)
[2023-06-01] MEDS: albuterol 2.5 mg/3 mL Neb INHALATION (09:12)
[2023-06-01] MEDS: potassium chloride ER 20 mEq Tablet 40 MEQ PO (09:49)
--- NOTE | 2023-06-01 09:52 | PM.DCS ---
Discharge Providers Date of Admission: 05/29/23 22:30 Date of Discharge: June 01, 2023 Attending Provider at Admission: Rina Desir MD Attending Provider at Discharge: Kwadwo Perales MD Primary Care Provider: Patti Irwin DO Diagnoses at Discharge Discharge Diagnosis (1) Respiratory failure: Status: Acute (2) COPD (chronic obstructive pulmonary disease): Status: Acute (3) CHF (congestive heart failure): Status: Acute (4) Acute respiratory failure with hypoxia and hypercarbia: Status: Acute (5) Anxiety: Status: Acute (6) Paroxysmal atrial fibrillation: Status: Acute (7) MYRA (generalized anxiety disorder): Status: Acute (8) Hypersomnia: Status: Acute (9) Chronic anticoagulation: Status: Acute (10) Atrial fib/flutter, transient: Status: Acute Reason for Visit Reason for Visit: SOB Hospital Course Hospital Course 82-year-old female with past medical history of COPD on 3 L home oxygen, diabetes, tension, heart failure with preserved ejection fraction, was brought in with chief complaint of worsening shortness of breath, during the hospital stay she was managed for his respiratory failure with hypoxia and hypercapnia secondary to COPD exacerbation and possible pneumonia, patient was kept on BiPAP, DuoNebs, p.o. prednisone, broad-spectrum antibiotics,supplemental oxygen as needed, x-ray chest had shown mild interstitial pulmonary edema and a small right pleural effusion, she was kept on IV Lasix, blood cultures are negative, MRSA PCR negative, bacterial aG panel negative, she responded well to above medical management At the time of discharge she was saturating well on 4 L supplemental ox, denied any significant shortness of breath, was afebrile, hemodynamically stable, she was discharged on, 40 Lasix p.o. daily, potassium supplement, she was also discharged on levofloxacin 750 mg p.o. daily for additional 5 days. Patient has been asked to follow with PCP as of outpatient, patient will also need pulmonary follow-up as outpatient, for the management of COPD. Physical Exam HENMT: COMMON NORMALS: normocephalic and atraumatic HEAD & SCALP: normocephalic and atraumatic Resp: OTHER: Diminished air entry bilaterally Cardio: COMMON NORMALS: regular rate, regular rhythm, S1 normal heart sound present, S2 normal heart sound present, No gallops present (Cardio), No murmurs present (Cardio), No rub (Cardio) and Peripheral pulses 2+ throughout RATE: regular rate RHYTHM: regular rhythm HEART SOUNDS: S1 normal heart sound present and S2 normal heart sound present PERIPHERAL PULSES: Peripheral pulses 2+ throughout GI: COMMON NORMALS: Normal to inspection, nondistended, normoactive bowel sounds present, Soft to palpation, non-tender, No hepatosplenomegaly present and no masses AUSCULTATION: Yes normoactive bowel sounds PALPATION: Yes Soft to palpation and Yes No hepatosplenomegaly present RECTAL EXAM: deferred Extremity: COMMON NORMALS: no clubbing, cyanosis or edema and no pedal edema Urinary Catheter Management: Matias: Cath Placed During This Visit: yes Reason for Continuing Indwelling Catheter: Other Urinary Catheter Date of Insertion: 05/29/23 Urinary Catheter Time of Insertion: 23:16 Discharge Data Studies Completed and Pending Completed Studies During Hospitalization Category Date Time Status XR chest 1V portable [id number] Stat Exams 05/29/23 20:59 Completed Pending at discharge Category Date Time Status Blood Culture Stat Lab 05/29/23 23:38 Results CBC Auto Diff [Complete Blood Count w/Auto] AM LABS Lab 06/02/23 04:00 Ordered CMP [Comprehensive Metabolic Panel] AM LABS Lab 06/02/23 04:00 Ordered Sputum Culture and Gram Stain Stat Lab 05/29/23 22:35 Uncollected Radiology Impressions Chest X-Ray 05/29/23 20:59 IMPRESSION: 1. Interval development of mild interstitial pulmonary edema and a small right pleural effusion. 2. Incidental/nonacute findings are listed in the report. Laboratory Results WBC 7.9 10^3/uL (4.0-10.0) 06/01/23 02:38 RBC 4.05 10^6/uL (4.1-5.3) L 06/01/23 02:38 Hgb 11.1 g/dL (11.5-15.3) L 06/01/23 02:38 Hct 35.4 % (37.0-47.0) L 06/01/23 02:38 MCV 87.4 fl (81-99) 06/01/23 02:38 MCH 27.4 pg (28.0-34.0) L 06/01/23 02:38 MCHC 31.4 g/dL (30.0-36.0) 06/01/23 02:38 RDW 13.9 % (12.1-15.1) 06/01/23 02:38 Plt Count 363 10^3/cmm (130-400) 06/01/23 02:38 MPV 10.2 fL (7.4-10.4) 06/01/23 02:38 Neut % (Auto) 76.1 % 06/01/23 02:38 Lymph % (Auto) 15.4 % 06/01/23 02:38 [place] % (Auto) 8.2 % 06/01/23 02:38 Eos % (Auto) 0.0 % 06/01/23 02:38 Baso % (Auto) 0.0 % 06/01/23 02:38 Neut # (Auto) 6.00 10^3/uL (1.8-7.7) 06/01/23 02:38 Lymph # (Auto) 1.2 10^3/uL (0.8-4.8) 06/01/23 02:38 [place] # (Auto) 0.7 10^3/uL (0.2-0.9) 06/01/23 02:38 Eos # (Auto) 0.0 10^3/uL (0.0-0.8) 06/01/23 02:38 Baso # (Auto) 0.0 10^3/uL (0.0-0.1) 06/01/23 02:38 Nucleated RBC % (auto) 0 % 06/01/23 02:38 Nucleated RBCs # 0.0 /100WBC 06/01/23 02:38 PT 14.70 SECONDS (12.1-14.9) 05/29/23 21:00 INR 1.11 (0.8-1.2) 05/29/23 21:00 D-Dimer 1.89 ug/mIFEU (0-0.59) H 05/29/23 21:00 Specimen Type Arterial 05/29/23 22:44 Sample Site Radial, left 05/29/23 22:44 ABG pH 7.30 (7.35-7.45) L 05/29/23 22:44 ABG pCO2 57.3 mmHg (35-45) H 05/29/23 22:44 ABG pO2 95.5 mmHg (80.0-100.0) 05/29/23 22:44 ABG HCO3 28.1 mmol/L (22-26) H 05/29/23 22:44 ABG Base Excess 0.9 mmol/L (-2.0-2.0) 05/29/23 22:44 Carlos Alberto Test Pos 05/29/23 22:44 Hematocrit 32.7 % (37-47) L 05/29/23 22:44 O2 Delivery Device Bipap 05/29/23 22:44 FiO2 35.0 % 05/29/23 22:44 Hide Or Skin Buffer ID [place] 05/29/23 22:44 Sodium 137 mmol/L (136-145) 06/01/23 02:38 Potassium 3.0 mmol/L (3.5-5.1) L 06/01/23 02:38 Chloride 96 mmol/L (98-107) L 06/01/23 02:38 Carbon Dioxide 30 mmol/L (22-29) H 06/01/23 02:38 Anion Gap 14.0 (5-19) 06/01/23 02:38 BUN 18 mg/dL (8-23) 06/01/23 02:38 Creatinine 1.0 mg/dL (0.5-0.9) H 06/01/23 02:38 GFR Calculation Not Reportable 06/01/23 02:38 Glucose 124 mg/dL (65-115) H 06/01/23 02:38 POC Glucose 141 mg/dL (70-110) H 06/01/23 06:06 Calculated Osmolality 287 mOsm/kg (285-295) 06/01/23 02:38 Calcium 8.5 mg/dL (8.5-10.5) 06/01/23 02:38 Magnesium 1.8 mg/dL (1.7-2.3) 05/30/23 03:05 Total Bilirubin 0.4 mg/dL (0.15-1.2) 06/01/23 02:38 AST 12 U/L (0-32) 06/01/23 02:38 ALT 9 U/L (0-33) 06/01/23 02:38 Alkaline Phosphatase 138 U/L (35-105) H 06/01/23 02:38 Troponin T Baseline 28 ng/L (0-10) H 05/29/23 21:00 Troponin T 120 Minute 41.71 ng/L (0-10) H 05/29/23 23:30 Delta Troponin T 13.71 ABS# (0-10) H* 05/29/23 23:30 Troponin T Hi Sens 6Hr 43.70 ng/L (0-10) H 05/30/23 03:05 Troponin T Hi Sens 6Hr Delta 15.70 ng/L (0-12) H* 05/30/23 03:05 C-Reactive Protein 19.2 mg/L (0.0-4.9) H 05/30/23 03:05 NT-Pro-B Natriuret Pep 4194 pg/mL (0-450) H 05/29/23 21:00 Total Protein 6.1 g/dL (6.6-8.7) L 06/01/23 02:38 Albumin 3.2 g/dL (3.5-5.2) L 06/01/23 02:38 Globulin 2.9 g/dL (1.3-4.6) 06/01/23 02:38 Vitamin B12 610 pg/mL (232-1245) 05/30/23 03:05 Procalcitonin 0.05 ng/mL (0-0.5) 05/29/23 21:00 Urine Color Yellow (Yellow) 05/29/23 23:19 Urine Appearance Sl hazy (CLEAR) A 05/29/23 23:19 Urine pH 5 (5-7) 05/29/23 23:19 Ur Specific [place] 1.020 (1.005-1.030) 05/29/23 23:19 Urine Protein 1+ (Negative) H 05/29/23 23:19 Urine Glucose (UA) Norm (Normal) 05/29/23 23:19 Urine Ketones Negative (Negative) 05/29/23 23:19 Urine Blood Neg (Negative) 05/29/23 23:19 Urine Nitrate Negative (Negative) 05/29/23 23:19 Urine Bilirubin Neg (Negative) 05/29/23 23:19 Urine Urobilinogen Neg mg/dL (Negative) 05/29/23 23:19 Ur Leukocyte Esterase Negative (Negative) 05/29/23 23:19 Urine RBC 0-4 /hpf (0-2) H 05/29/23 23:19 Urine WBC 0-4 /hpf (0-5) H 05/29/23 23:19 Ur Squamous Epith Cells 0-4 /hpf (0-5) H 05/29/23 23:19 Ur Transition Epith Cell 0-4 /hpf 05/29/23 23:19 Amorphous Sediment Not Reportable 05/29/23 23:19 Urine Bacteria Trace /hpf (NONE) 05/29/23 23:19 Hyaline Casts 0-4 /lpf H 05/29/23 23:19 Urine Mucus 2+ /hpf 05/29/23 23:19 Nasal Influ A H1 2009 PCR Not detected (NOT DETECT) 05/30/23 18:48 Adenovirus (PCR) Not detected (NOT DETECT) 05/30/23 18:48 C. pneumoniae DNA (PCR) Not detected (NOT DETECT) 05/30/23 18:48 Coronavirus 229E (PCR) Not detected (NOT DETECT) 05/30/23 18:48 Human Metapneumovir PCR Not detected (NOT DETECT) 05/30/23 18:48 Influenza A (H1) PCR Not detected (NOT DETECT) 05/30/23 18:48 Influenza A (H3) PCR Not detected (NOT DETECT) 05/30/23 18:48 Influenza Type A (PCR) Not detected (NOT DETECT) 05/30/23 18:48 Influenza Type B (PCR) Not detected (NOT DETECT) 05/30/23 18:48 M. pneumoniae (PCR) Not detected (NOT DETECT) 05/30/23 18:48 Parainfluenza 1 (PCR) Not detected (NOT DETECT) 05/30/23 18:48 Parainfluenza 2 (PCR) Not detected (NOT DETECT) 05/30/23 18:48 Parainfluenza 3 (PCR) Not detected (NOT DETECT) 05/30/23 18:48 Parainfluenza 4 (PCR) Not detected (NOT DETECT) 05/30/23 18:48 RSV Type A (PCR) Not detected (NOT DETECT) 05/30/23 18:48 RSV Type B (PCR) Not detected (NOT DETECT) 05/30/23 18:48 Entero/Rhino (PCR) Detected (NOT DETECT) A 05/30/23 18:48 SARS-CoV-2 (PCR) Not detected (NOT DETECT) 05/30/23 18:48 Vitals Last Vital Signs Temp 98.9 F 06/01/23 04:00 Pulse 77 06/01/23 09:24 Resp 20 H 06/01/23 09:14 BP 145/78 06/01/23 04:00 Pulse Ox 89 L 06/01/23 09:43 O2 Del Method Nasal Cannula 06/01/23 09:14 O2 Flow Rate 4 06/01/23 09:43 FiO2 35 05/31/23 04:00 Discharge Plan Discharge Patient Disposition: Home Condition: Stable Prescriptions: New Lasix 40 mg tablet 40 mg PO DAILY 30 Days Qty: 30 1RF levofloxacin 750 mg tablet 750 mg PO DAILY 5 Days Qty: 5 0RF Continued (DME) overnight oximetry See Rx Instructions .Route .MEDSUPPLY Qty: 1 0RF Rx Instructions: As directed budesonide-formoterol [Symbicort] 160-4.5 mcg/actuation HFA aerosol inhaler 2 puff inhalation Q12H Qty: 10.2 2RF Breztri Aerosphere 160-9-4.8 mcg/actuation HFA aerosol inhaler 2 inh inhalation BID Qty: 10.7 6RF (DME) FreeStyle [place] 14 Day Sensor Kit See Rx Instructions .Route Qty: 2 11RF Rx Instructions: As directed (DME) FreeStyle [place] 14 Day [place] Misc See Rx Instructions .Route Qty: 1 0RF Rx Instructions: As directed (DME) blood-glucose meter Misc See Rx Instructions .Route Qty: 1 0RF Rx Instructions: As directed with testing strips (DME) pen needle, diabetic [TechLITE Pen Needle] 32 gauge x 5/32 needle See Rx Instructions .Route Qty: 100 0RF Rx Instructions: As directed atorvastatin 80 mg tablet 80 mg PO BEDTIME Qty: 90 3RF (DME) breast prosthesis bilateral and bras x4 See Rx Instructions .Route .MEDSUPPLY Qty: 1 0RF Rx Instructions: As directed potassium chloride 10 mEq capsule, extended release 10 meq PO BID Qty: 270 0RF clopidogrel 75 mg tablet 75 mg PO BEDTIME Qty: 90 3RF (DME) Blood Glucose Test Strip See Rx Instructions .Route Qty: 120 12RF Rx Instructions: free style test strips - test qid oxycodone 15 mg tablet 15 mg PO Q6H PRN (Reason: pain) 30 Days Qty: 120 0RF carvedilol 6.25 mg tablet 6.25 mg PO BID Qty: 60 0RF fluticasone propionate [Flonase Allergy Relief] 50 mcg/actuation spray,suspension 2 spray intranasal DAILY PRN (Reason: Allergy Symptoms) Rx Instructions: administer into each nostril ondansetron 4 mg tablet,disintegrating 4 mg PO Q8H PRN (Reason: nausea and vomiting) Qty: 15 0RF famotidine 20 mg tablet 20 mg PO BID diphenhydramine HCl [Benadryl] 25 mg Capsule 25 mg PO BEDTIME PRN (Reason: Allergy Symptoms) albuterol sulfate [Ventolin HFA] 90 mcg/actuation HFA aerosol inhaler 2 puff inhalation 6XD PRN (Reason: Shortness Of Breath) loratadine 10 mg tablet 10 mg PO QAM ipratropium-albuterol 0.5 mg-3 mg(2.5 mg base)/3 mL solution for nebulization 3 ml inhalation Q4H PRN (Reason: shortness of breath or wheezing) Qty: 180 0RF Rx Instructions: until breathing returns to target peak flow/parameters montelukast 10 mg tablet 10 mg PO DAILY lisinopril 2.5 mg tablet 2.5 mg PO DAILY glipizide 5 mg tablet 5 mg PO DAILY Lantus Solostar U-100 Insulin 100 unit/mL (3 mL) insulin pen 8 unit SUBCUT QAM Discontinued furosemide 20 mg tablet 20 mg PO QAM Discharge Orders: Discharge Order (Routine); Ordered 06/01/23 Ordered By: Kwadwo Perales Other Ambulatory Orders: DME: Oxygen (Order) Location: None Selected Ordered By: Kwadwo Perales Referrals: Patti Irwin DO [Primary Care Provider] - ([facility] family has been contacted with your appointment information. The clinic will contact you within 24 hours to schedule this appointment. If you have not heard from them with in that timeframe. Please call ) Patient Instructions: Furosemide (By mouth) (Lasix), Levofloxacin (By mouth) (Levaquin, Levaquin Leva-hali), Heart Failure (DC), A-fib (Atrial Fibrillation) (DC), Anxiety (DC), CHF Stoplight, COPD Stoplight, Opioid Safety Discharge Attestations Time Spent in Discharge Care*: less than 30 min Quality Metrics Clinical Quality Measures [ No reported AMI, CVA or VTE this stay] Coding Level of Care Code Acute Code for Chg Fwd Diagnoses Respiratory failure J96.90 COPD (chronic obstructive pulmonary disease) J44.9 CHF (congestive heart failure) I50.9 Acute respiratory failure with hypoxia and hypercarbia J96.01; J96.02 Anxiety F41.9 Paroxysmal atrial fibrillation I48.0 MYRA (generalized anxiety disorder) F41.1 Hypersomnia G47.10 Chronic anticoagulation Z79.01 Atrial fib/flutter, transient
--- NOTE | 2023-06-01 11:20 | PC.NURSE ---
Discharge Note Patient discharged to home via PV accompanied by family. Discharge instructions reviewed with patient and/or traffic workforce representative. Mobile pharmacy medications and/or prescriptions provided. Belongings/home medications returned.
--- NOTE | 2023-06-01 11:48 | PC.SOCIAL ---
IMM Update Late entry @ 0872 IMM updated and reviewed w/ patient. Copy provided and copy dated, initialed and placed in chart.
== END 2023-06-01 11:20 | disposition home or self-care (01) | DRG 291 ==
LOC: ER 21:57 → ICU 23:18 → CSU 05-31 12:34
PROVIDERS: Internal Medicine; Admitting Provider Internal Medicine; Emergency Provider Emergency Medicine; PCP Family Medicine; Visit Provider Internal Medicine
DX: I13.0 Hypertensive heart and chronic kidney disease with heart failure and stage 1 through stage 4 chronic kidney disease, or unspecified chronic kidney disease (principal); I50.33 Acute on chronic diastolic (congestive) heart failure; J18.9 Pneumonia, unspecified organism; J96.22 Acute and chronic respiratory failure with hypercapnia; J96.21 Acute and chronic respiratory failure with hypoxia; J44.0 Chronic obstructive pulmonary disease with (acute) lower respiratory infection; Z68.41 Body mass index [BMI] 40.0-44.9, adult; J44.1 Chronic obstructive pulmonary disease with (acute) exacerbation; Z99.81 Dependence on supplemental oxygen; N18.9 Chronic kidney disease, unspecified; E13.22 Other specified diabetes mellitus with diabetic chronic kidney disease; E13.42 Other specified diabetes mellitus with diabetic polyneuropathy; Z79.51 Long term (current) use of inhaled steroids; Z79.02 Long term (current) use of antithrombotics/antiplatelets; Z79.891 Long term (current) use of opiate analgesic; Z79.84 Long term (current) use of oral hypoglycemic drugs; Z79.4 Long term (current) use of insulin; F17.210 Nicotine dependence, cigarettes, uncomplicated; F41.1 Generalized anxiety disorder; Z99.89 Dependence on other enabling machines and devices; Z85.3 Personal history of malignant neoplasm of breast; G89.29 Other chronic pain; G47.10 Hypersomnia, unspecified; I48.0 Paroxysmal atrial fibrillation; Z90.13 Acquired absence of bilateral breasts and nipples; M81.0 Age-related osteoporosis without current pathological fracture; E66.01 Morbid (severe) obesity due to excess calories; Z86.16 Personal history of COVID-19; E78.5 Hyperlipidemia, unspecified; Z86.73 Personal history of transient ischemic attack (TIA), and cerebral infarction without residual deficits
CPT/HCPCS: 36415; 36416; 36600; 51702; 71045; 80048; 80053; 81001; 82607; 82803; 82962; 83735; 83880; 84145; 84484; 85025; 85378; 85610; 86140; 86403; 87040; 87486; 87581; 87633; 87641; 92523; 92610; 93005; 94640; 94660; 94760; 96365; 96367; 96372; 96375; 96376; 99291; J0456; J0692; J0696; J1815; J1940; J2060; J2270; J2405; J2930; J3370; J3480; J7050; J7512; J7613; J7626

== ENCOUNTER 2023-06-08 20:59 | Emergency (ER) | payer MEDICARE, SELFPAY ==
[2023-06-08 21:12] VITALS: BP 113/66; PULSE 82; RESP 16; TEMP 36.9; O2SAT 93; BMI 34.3
--- NOTE | 2023-06-08 21:26 | XRR_ITS ---
PROCEDURE INFORMATION: Exam: XR Chest Exam date and time: 06/08/2023 10:13 PM Age: 82 years old Clinical indication: Shortness of breath; Additional info: SOB TECHNIQUE: Imaging protocol: Radiologic exam of the chest. Views: 1 view. COMPARISON: CR (CHEST, ) 05/29/2023 9:27 PM FINDINGS: Lungs: Left lower lobe subsegmental atelectasis versus minimal infiltrate. Pleural spaces: Unremarkable. No pleural effusion. No pneumothorax. Heart/Mediastinum: Cardiomegaly. Bones/joints: Unremarkable. XR/XR chest 1V portable [id number] IMPRESSION: 1. Cardiomegaly, negative for infiltrate 2. Left lower lobe subsegmental atelectasis versus minimal infiltrate.
[2023-06-08 22:00] LABS: Basophils % 0.2 %; Eosinophils # 0.5 10^3/uL (0.0-0.8); Eosinophils % 4.2 %; Hemoglobin 10.4 g/dL (11.5-15.3); Lymphocytes # 2.1 10^3/uL (0.8-4.8); Lymphocytes % 17.5 %; Mean Corpuscular HGB Conc 30.6 g/dL (30.0-36.0); Mean Corpuscular Hemoglobin 27.4 pg (28.0-34.0); Mean Corpuscular Volume 89.5 fl (81-99); Mean Platelet Volume 10.1 fL (7.4-10.4); Monocytes # 1.4 10^3/uL (0.2-0.9); Monocytes % 11.9 %; Neutrophils # 7.91 10^3/uL (1.8-7.7); Nucleated Red Blood Cells % 0 %; Platelet Count 347 10^3/cmm (130-400); Red Cell Distribution Width 14.3 % (12.1-15.1)
[2023-06-08 22:22] LABS: Anion Gap 14.4 (5-19); Blood Urea Nitrogen 28 mg/dL (8-23); Calcium 8.6 mg/dL (8.5-10.5); Carbon Dioxide 33 mmol/L (22-29); Chloride 96 mmol/L (98-107); Glucose 173 mg/dL (65-115); Lactic Sepsis W/Reflex 0.8 mmol/L (0.5-2.2); Osmolality Calculated 298 mOsm/kg (285-295); Potassium 4.4 mmol/L (3.5-5.1); Sodium 139 mmol/L (136-145)
== END 2023-06-08 23:48 | disposition left against medical advice (07) ==
PROVIDERS: Emergency Medicine; Emergency Provider Family Medicine; PCP Family Medicine
DX: Z53.21 Procedure and treatment not carried out due to patient leaving prior to being seen by health care provider (principal)
CPT/HCPCS: 36415; 71045; 80048; 83605; 85025; 99283

== ENCOUNTER 2023-06-23 13:30 | Oncology outpatient (recurring) (ONCR) | payer MEDICARE, SELFPAY ==
[2023-06-11 12:28] VITALS: BP 100/59; PULSE 74; RESP 18; TEMP 37.1; O2SAT 92
[2023-06-11 12:38] LABS: Basophils % 0.3 %; Eosinophils # 0.6 10^3/uL (0.0-0.8); Eosinophils % 7.9 %; Hematocrit 31.7 % (37.0-47.0); Hemoglobin 9.7 g/dL (11.5-15.3); Lymphocytes # 1.5 10^3/uL (0.8-4.8); Lymphocytes % 18.6 %; Mean Corpuscular HGB Conc 30.6 g/dL (30.0-36.0); Mean Corpuscular Hemoglobin 27.6 pg (28.0-34.0); Mean Corpuscular Volume 90.3 fl (81-99); Mean Platelet Volume 9.8 fL (7.4-10.4); Monocytes % 12.1 %; Neutrophils # 4.87 10^3/uL (1.8-7.7); Neutrophils % 60.8 %; Nucleated Red Blood Cells % 0 %; Platelet Count 314 10^3/cmm (130-400); Red Blood Count 3.51 10^6/uL (4.1-5.3); Red Cell Distribution Width 14.2 % (12.1-15.1)
[2023-06-11 13:00] LABS: Alanine Aminotransferase 8 U/L (0-33); Albumin Level 3.2 g/dL (3.5-5.2); Alkaline Phosphatase 97 U/L (35-105); Anion Gap 11.1 (5-19); Aspartate Amino Transferase 10 U/L (0-32); Blood Urea Nitrogen 22 mg/dL (8-23); Calcium 8.4 mg/dL (8.5-10.5); Carbon Dioxide 32 mmol/L (22-29); Chloride 103 mmol/L (98-107); Globulin 2.9 g/dL (1.3-4.6); Glucose 113 mg/dL (65-115); Osmolality Calculated 298 mOsm/kg (285-295); Potassium 4.1 mmol/L (3.5-5.1); Sodium 142 mmol/L (136-145); Total Bilirubin 0.3 mg/dL (0.15-1.2); Total Protein 6.1 g/dL (6.6-8.7)
[2023-06-11 16:09] LABS: Iron 28 ug/dL (37-145); Total Iron Binding Capacity 200 mcg/dl; Unsaturated Iron Binding 172 ug/dL (112-347)
[2023-06-11 16:20] LABS: Vitamin B12 574 pg/mL (232-1245)
[2023-06-20 09:43] VITALS: BP 133/69; PULSE 63; RESP 16; TEMP 36.3; O2SAT 93
[2023-06-20] MEDS: sodium chloride 0.9% 250 ML 75 ML IV (09:52)
[2023-06-20] MEDS: iron sucrose 200 MG in sodium chloride 0.9% (100 ml) 100 ML 220 MG IV (09:53)
[2023-06-20 10:40] VITALS: BP 145/71; PULSE 64; RESP 16; TEMP 36.6; O2SAT 90
[2023-06-23 13:39] VITALS: BP 118/68; PULSE 70; RESP 16; TEMP 37; O2SAT 97
[2023-06-23] MEDS: iron sucrose 200 MG in sodium chloride 0.9% (100 ml) 100 ML 220 MG IV (13:49)
[2023-06-23 14:30] VITALS: BP 144/77; PULSE 54; RESP 18; TEMP 37; O2SAT 98
== END 2023-06-23 23:59 | disposition home or self-care (01) ==
PROVIDERS: Nurse Practitioner Family; PCP Family Medicine; Visit Provider Internal Medicine Medical Oncology
DX: D50.9 Iron deficiency anemia, unspecified (principal)
CPT/HCPCS: 36415; 80053; 82607; 83540; 83550; 85025; 96365; 99214; J1756; J7050

== ENCOUNTER 2023-06-27 09:49 | Oncology outpatient (recurring) (ONCR) | payer MEDICARE, SELFPAY ==
[2023-06-25] MEDS: sodium chloride 0.9% 250 ML 75 ML IV (14:18)
[2023-06-25] MEDS: iron sucrose 200 MG in sodium chloride 0.9% (100 ml) 100 ML 220 MG IV (14:25)
[2023-06-27] MEDS: iron sucrose 200 MG in sodium chloride 0.9% (100 ml) 100 ML 220 MG IV (10:13)
[2023-06-27 10:33] VITALS: BP 104/60; PULSE 67; RESP 17; TEMP 36.6; O2SAT 98
[2023-06-27 11:05] VITALS: BP 142/78; PULSE 75; RESP 18; TEMP 36.6; O2SAT 98
== END 2023-07-24 23:59 | disposition home or self-care (01) ==
PROVIDERS: PCP Family Medicine; Visit Provider Internal Medicine Medical Oncology
DX: D50.8 Other iron deficiency anemias (principal); C50.812 Malignant neoplasm of overlapping sites of left female breast; C50.919 Malignant neoplasm of unspecified site of unspecified female breast
CPT/HCPCS: 96365; J1756; J7050

== ENCOUNTER 2023-07-01 20:00 | Outpatient (CLI) | payer MEDICARE, SELFPAY | END 2023-07-01 20:01 | disposition home or self-care (01) | LOC: SLEEP 07-02 05:11 | PROVIDERS: PCP Family Medicine; Visit Provider Family Medicine | DX: G47.33 Obstructive sleep apnea (adult) (pediatric) (principal) | CPT/HCPCS: 95810 ==

== ENCOUNTER → 2023-07-11 08:54 | Outpatient (BNVA) | payer MEDICARE, SELFPAY | PROVIDERS: PCP Family Medicine; Visit Provider Internal Medicine Cardiovascular Disease | DX: I13.0 Hypertensive heart and chronic kidney disease with heart failure and stage 1 through stage 4 chronic kidney disease, or unspecified chronic kidney disease (principal); E13.22 Other specified diabetes mellitus with diabetic chronic kidney disease; N18.9 Chronic kidney disease, unspecified; I50.32 Chronic diastolic (congestive) heart failure; Z87.891 Personal history of nicotine dependence; Z79.84 Long term (current) use of oral hypoglycemic drugs; J43.1 Panlobular emphysema; Z98.890 Other specified postprocedural states; Z86.79 Personal history of other diseases of the circulatory system; I65.23 Occlusion and stenosis of bilateral carotid arteries; I70.1 Atherosclerosis of renal artery; I71.20 Thoracic aortic aneurysm, without rupture, unspecified; E78.5 Hyperlipidemia, unspecified | CPT/HCPCS: 99214 ==

== ENCOUNTER 2023-07-20 09:05 | Observation (INO) | payer MEDICARE, SELFPAY ==
[2023-07-20] VITALS (20 sets, daily range): BP systolic 108–155; BP diastolic 57–103; PULSE 66–85; RESP 13–20; TEMP 36.7–36.9; O2SAT 91–100; BMI 31.1
--- NOTE | 2023-07-20 09:21 | XRR_ITS ---
PROCEDURE INFORMATION: Exam: XR Chest Exam date and time: 07/20/2023 9:50 AM Age: 82 years old Clinical indication: Cough and dyspnea; Additional info: Dyspnea/cough TECHNIQUE: Imaging protocol: Radiologic exam of the chest. Views: 1 view. COMPARISON: CR (CHEST, ) 06/08/2023 10:13 PM FINDINGS: Lungs: Unremarkable. No consolidation. Pleural spaces: Unremarkable. No pleural effusion. No pneumothorax. Heart/Mediastinum: The cardiac silhouette is enlarged but unchanged. The aorta is calcified and tortuous. Stent is seen in the visualized portion of the upper abdominal aorta. Bones/joints: Unremarkable. XR/XR chest 1V portable [id number] IMPRESSION: Stable cardiomegaly. No acute abnormality.
[2023-07-20] MEDS: nitroglycerin 1 gm/inch oint Pkt 0.5 INCH TOPICAL (09:37)
[2023-07-20] MEDS: ondansetron 2 mg/ML SDV 2 mL 4 MG IVP (09:38)
[2023-07-20 09:43] LABS: Basophils % 0.4 %; Eosinophils # 0.5 10^3/uL (0.0-0.8); Eosinophils % 6.8 %; Hematocrit 35.8 % (36-47); Lymphocytes # 2.9 10^3/uL (0.8-4.8); Lymphocytes % 36.8 %; Mean Corpuscular Volume 90.4 fl (85-98); Mean Platelet Volume 10.4 fL (7.4-10.4); Monocytes # 0.8 10^3/uL (0.2-0.9); Monocytes % 10.3 %; Neutrophils # 3.61 10^3/uL (1.8-7.7); Neutrophils % 45.6 %; Nucleated Red Blood Cells % 0 %; Platelet Count 373 10^3/cmm (157-399); Red Blood Count 3.96 10^6/uL (3.85-5.65); Red Cell Distribution Width 15.4 % (12.1-15.1); White Blood Count 7.93 10^3/uL (3.29-11.43)
[2023-07-20 09:48] LABS: Alanine Aminotransferase 14 U/L (0-33); Albumin Level 3.7 g/dL (3.5-5.2); Alkaline Phosphatase 136 U/L (35-105); Anion Gap 10.8 (5-19); Aspartate Amino Transferase 11 U/L (0-32); Blood Urea Nitrogen 13 mg/dL (8-23); Calcium 8.5 mg/dL (8.5-10.5); Carbon Dioxide 31 mmol/L (22-29); Chloride 105 mmol/L (98-107); Creatinine Clr Calc Pharmacy 35.9505; Globulin 2.8 g/dL (1.3-4.6); Glucose 76 mg/dL (65-115); Osmolality Calculated 295 mOsm/kg (285-295); Potassium 3.8 mmol/L (3.5-5.1); Sodium 143 mmol/L (136-145); Total Bilirubin 0.2 mg/dL (0.15-1.2); Total Protein 6.5 g/dL (6.6-8.7)
--- NOTE | 2023-07-20 10:13 | ECG_ITS ---
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 Measurements Intervals [place] Rate: 78 P: -85 IA: 140 QRS: -26 QRSD: 150 T: 117 QT: 401 QTc: 459 Interpretive Statements SINUS RHYTHM WITH FREQUENT PREMATURE ATRIAL COMPLEXES LEFT BUNDLE BRANCH BLOCK [120+ ms QRS DURATION, 80+ ms Q/S IN V1/V2, 85+ ms R IN I/aVL/V5/V6] Compared to ECG 05/29/2023 23:03:40 Indeterminate axis no longer present Intraventricular conduction delay no longer present Electronically Signed On 07-20-2023 15:23:48 CDT by Jaxon Fernandes M.D. [id number]
--- NOTE | 2023-07-20 10:23 | W.ED.CHESTPA ---
HPI - Chest Pain General: Chief Complaint: Chest Pain Stated Complaint: CP Time Seen by Provider: 07/20/23 09:15 Source: patient Mode of arrival: ambulatory History of Present Illness: 82-year-old female presents emergency room complaining of substernal chest pain left-sided chest pain started last night while she was at rest. She has a history of coronary artery disease she did take 2 full size aspirin she did not take any nitro with her nitro supply was outdated she thought it was over 2 years old. She is not having any pain at this moment she says it is completely resolved and has not recurred. She said she felt like she needed to belch and it would get better. No known coronary artery disease patient previously has had carotid stenosis, abdominal aortic stent has diabetes hypertension, paroxysmal A-fib and renal artery stenosis. MD complaint: chest pain Onset (ago): hour(s) Timing of current episode: episodic Prior episodes: No Onset: during rest Pain location: substernal and left chest Severity: moderate Quality: tightness and aching Relieving factors: nothing Exacerbating factors: nothing Associated symptoms: Deny abdominal pain, diaphoresis, dyspnea, fever(s), leg edema, nausea, palpitations, sense of impending doom, syncope, vomiting or other Review of Systems Const: Denies: fever(s), chills or diaphoresis Card: Denies: chest pain, palpitations or syncope Resp: Denies: dyspnea GI: Denies: abdominal pain, nausea or vomiting : Denies: flank pain, difficulty voiding, dysuria, urinary frequency or urinary urgency Skin/Breast: Denies: rash or pruritus PFS ED PFSH: Medical History AAA (abdominal aortic aneurysm) Status post stent graft repair Acute respiratory failure with hypoxia and hypercarbia Anemia Anxiety Asthma Atopic dermatitis Atrial fib/flutter, transient B12 deficiency Bilateral breast cancer Carotid artery disease CHF (congestive heart failure) Diastolic/Systolic EF 37% 12/14 CHF (congestive heart failure) Chronic anticoagulation Chronic kidney disease Chronic pain COPD (chronic obstructive pulmonary disease) COPD (chronic obstructive pulmonary disease) CVA (cerebral vascular accident) Descending thoracic aortic 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, 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 Dyslipidemia MYRA (generalized anxiety disorder) History of COVID-12 Aug 2021 History of nonmelanoma skin cancer HTN (hypertension) Hypersomnia Nicotine dependence, cigarettes, with unspecified nicotine-induced disorders Obesity Osteoporosis Paroxysmal atrial fibrillation Pneumonia Renal artery stenosis Respiratory failure Seasonal allergies Surgical History History of aortic aneurysm repair History of stent insertion of renal artery History of total mastectomy of left breast 04/[address] Vo at [place], [place] S/P cholecystectomy S/P hysterectomy S/P mastectomy (08/2009) Right modified radical mastectomy S/P tonsillectomy Family History Other Stroke Social History Smoking and tobacco status: former smoker Quit status (tobacco): has quit using tobacco Year quit tobacco: 04/2023 Former quit date comment: smoked for 50+ years Alcohol intake: never Substance/Drug Use: never Physical Exam Const: COMMON NORMALS: no acute distress GENERAL APPEARANCE: cooperative and comfortable ORIENTATION/CONSCIOUSNESS: Yes awake, Yes oriented to person, Yes oriented to place and Yes oriented to time HENMT: COMMON NORMALS: normocephalic, atraumatic and hearing grossly normal bilaterally HEAD & SCALP: normocephalic and atraumatic Resp: COMMON NORMALS: normal respiratory effort, No retractions, No use of accessory muscles and clear to auscultation bilaterally AUSCULTATION: clear to auscultation bilaterally Cardio: COMMON NORMALS: regular rate, regular rhythm and No murmurs present (Cardio) RATE: regular rate RHYTHM: regular rhythm GI: COMMON NORMALS: Soft to palpation and No hepatosplenomegaly present AUSCULTATION: Yes normoactive bowel sounds PALPATION: Yes Soft to palpation, No Tenderness to palpation present (GI), No Guarding due to palpation present (GI) and Yes No hepatosplenomegaly present Extremity: COMMON NORMALS: normal to inspection, capillary refill normal, no clubbing, cyanosis or edema, no calf tenderness and no pedal edema Neuro: SENSORIUM/ORIENTATION: Yes oriented to person, Yes oriented to place and Yes oriented to time Skin: COMMON NORMALS: no rashes or lesions noted GENERAL SKIN EXAM: no rashes or lesions noted Course Vital Signs: Vital signs: Vital Signs Temperature 98.5 F 07/20/23 09:16 Pulse Rate 75 07/20/23 11:00 Respiratory Rate 20 H 07/20/23 11:00 Blood Pressure 154/85 07/20/23 11:00 Pulse Oximetry 96 07/20/23 11:00 Oxygen Delivery Me thod Room Air 07/20/23 10:28 MDM - Chest Pain Medical Decision Making Unstable angina through the night. No chest pain at this time. Patient had a nonsustained run of V. tach about 10-15 beats while here. We will place her on a mission to complete her cardiac evaluation for consideration of further diagnostic testing testing as appropriate discussed with hospitalist orders written. Initial EKG did not show any clear ST elevation there is some slight ST variations however there due to her interventricular conduction delay discussed with Dr. Alicea he did not feel it met STEMI criteria and advised completing the troponin series. Medical Records I reviewed the patient's medical records. Lab Data I reviewed the patient's lab results. 07/20/23 09:22 07/20/23 09:22 Radiology Impressions Chest X-Ray 07/20/23 09:21 IMPRESSION: Stable cardiomegaly. No acute abnormality. Laboratory Results WBC 7.93 10^3/uL (3.29-11.43) 07/20/23 09:22 RBC 3.96 10^6/uL (3.85-5.65) 07/20/23 09:22 Hgb 11.10 g/dL (11.27-16.99) L 07/20/23 09:22 Hct 35.8 % (36-47) L 07/20/23 09:22 MCV 90.4 fl (85-98) 07/20/23 09:22 MCH 28.0 pg (27-33) 07/20/23 09:22 MCHC 31.0 g/dL (30-55) 07/20/23 09:22 RDW 15.4 % (12.1-15.1) H 07/20/23 09:22 Plt Count 373 10^3/cmm (157-399) 07/20/23 09:22 MPV 10.4 fL (7.4-10.4) 07/20/23 09:22 Neut % (Auto) 45.6 % 07/20/23 09:22 Lymph % (Auto) 36.8 % 07/20/23 09:22 [place] % (Auto) 10.3 % 07/20/23 09:22 Eos % (Auto) 6.8 % 07/20/23 09:22 Baso % (Auto) 0.4 % 07/20/23 09:22 Neut # (Auto) 3.61 10^3/uL (1.8-7.7) 07/20/23 09:22 Lymph # (Auto) 2.9 10^3/uL (0.8-4.8) 07/20/23 09:22 [place] # (Auto) 0.8 10^3/uL (0.2-0.9) 07/20/23 09:22 Eos # (Auto) 0.5 10^3/uL (0.0-0.8) 07/20/23 09:22 Baso # (Auto) 0.0 10^3/uL (0.0-0.1) 07/20/23 09:22 Nucleated RBC % (auto) 0 % 07/20/23 09:22 Nucleated RBCs # 0.0 /100WBC 07/20/23 09:22 Sodium 143 mmol/L (136-145) 07/20/23 09:22 Potassium 3.8 mmol/L (3.5-5.1) 07/20/23 09:22 Chloride 105 mmol/L (98-107) 07/20/23 09:22 Carbon Dioxide 31 mmol/L (22-29) H 07/20/23 09:22 Anion Gap 10.8 (5-19) 07/20/23 09:22 BUN 13 mg/dL (8-23) 07/20/23 09:22 Creatinine 1.2 mg/dL (0.5-0.9) H 07/20/23 09:22 GFR Calculation Not Reportable 07/20/23 09:22 Glucose 76 mg/dL (65-115) 07/20/23 09:22 Calculated Osmolality 295 mOsm/kg (285-295) 07/20/23 09:22 Calcium 8.5 mg/dL (8.5-10.5) 07/20/23 09:22 Total Bilirubin 0.2 mg/dL (0.15-1.2) 07/20/23 09:22 AST 11 U/L (0-32) 07/20/23 09:22 ALT 14 U/L (0-33) 07/20/23 09:22 Alkaline Phosphatase 136 U/L (35-105) H 07/20/23 09:22 Creatine Kinase 30 U/L (26-192) 07/20/23 09:22 Troponin T Baseline 24 ng/L (0-10) H 07/20/23 09:22 NT-Pro-B Natriuret Pep 4094 pg/mL (0-450) H 07/20/23 09:22 Total Protein 6.5 g/dL (6.6-8.7) L 07/20/23 09:22 Albumin 3.7 g/dL (3.5-5.2) 07/20/23 09:22 Globulin 2.8 g/dL (1.3-4.6) 07/20/23 09:22 Urine Color Yellow (Yellow) 07/20/23 10:55 Urine Appearance Clear (CLEAR) 07/20/23 10:55 Urine pH 5 (5-7) 07/20/23 10:55 Ur Specific [place] 1.015 (1.005-1.030) 07/20/23 10:55 Urine Protein Neg (Negative) 07/20/23 10:55 Urine Glucose (UA) Norm (Normal) 07/20/23 10:55 Urine Ketones 1+ (Negative) H 07/20/23 10:55 Urine Blood Neg (Negative) 07/20/23 10:55 Urine Nitrate Negative (Negative) 07/20/23 10:55 Urine Bilirubin Neg (Negative) 07/20/23 10:55 Urine Urobilinogen Norm mg/dL (Negative) 07/20/23 10:55 Ur Leukocyte Esterase 1+ (Negative) H 07/20/23 10:55 Urine RBC None /hpf (0-2) 07/20/23 10:55 Urine WBC 15-25 /hpf (0-5) H 07/20/23 10:55 Ur Squamous Epith Cells 15-25 /hpf (0-5) H 07/20/23 10:55 Amorphous Sediment Not Reportable 07/20/23 10:55 Urine Bacteria 1+ /hpf (NONE) H 07/20/23 10:55 Discharge Plan Discharge Condition: Stable Prescriptions: No Action (DME) overnight oximetry See Rx Instructions .Route .MEDSUPPLY Qty: 1 0RF Rx Instructions: As directed budesonide-formoterol [Symbicort] 160-4.5 mcg/actuation HFA aerosol inhaler 2 puff inhalation Q12H Qty: 10.2 2RF Breamauritri Aerosphere 160-9-4.8 mcg/actuation HFA aerosol inhaler 2 inh inhalation BID Qty: 10.7 6RF (DME) FreeStyle [place] 14 Day Sensor Kit See Rx Instructions .Route Qty: 2 11RF Rx Instructions: As directed (DME) FreeStyle Odell 14 Day [place] Misc See Rx Instructions .Route Qty: 1 0RF Rx Instructions: As directed (DME) blood-glucose meter Misc See Rx Instructions .Route Qty: 1 0RF Rx Instructions: As directed with testing strips (DME) pen needle, diabetic [TechLITE Pen Needle] 32 gauge x 5/32 needle See Rx Instructions .Route Qty: 100 0RF Rx Instructions: As directed atorvastatin 80 mg tablet 80 mg PO BEDTIME Qty: 90 3RF (DME) breast prosthesis bilateral and bras x4 See Rx Instructions .Route .MEDSUPPLY Qty: 1 0RF Rx Instructions: As directed potassium chloride 10 mEq capsule, extended release 10 meq PO BID Qty: 270 0RF clopidogrel 75 mg tablet 75 mg PO BEDTIME Qty: 90 3RF (DME) Blood Glucose Test Strip See Rx Instructions .Route Qty: 120 12RF Rx Instructions: free style test strips - test qid carvedilol 6.25 mg tablet 6.25 mg PO BID Qty: 60 0RF (DME) home oxygen 2l/m continuous See Rx Instructions .Route .MEDSUPPLY Qty: 1 0RF Rx Instructions: As directed Lasix 40 mg tablet 40 mg PO DAILY Qty: 90 1RF famotidine 20 mg tablet 20 mg PO BID Qty: 180 1RF (DME) CPAP set to 6-16 with supplies See Rx Instructions .Route .MEDSUPPLY Qty: 1 0RF Rx Instructions: As directed oxycodone 15 mg tablet 15 mg PO Q6H PRN (Reason: pain) 30 Days Qty: 120 0RF fluticasone propionate [Flonase Allergy Relief] 50 mcg/actuation spray,suspension 2 spray intranasal DAILY PRN (Reason: Allergy Symptoms) Rx Instructions: administer into each nostril ondansetron 4 mg tablet,disintegrating 4 mg PO Q8H PRN (Reason: nausea and vomiting) Qty: 15 0RF diphenhydramine HCl [Benadryl] 25 mg Capsule 25 mg PO BEDTIME PRN (Reason: Allergy Symptoms) albuterol sulfate [Ventolin HFA] 90 mcg/actuation HFA aerosol inhaler 2 puff inhalation 6XD PRN (Reason: Shortness Of Breath) loratadine 10 mg tablet 10 mg PO QAM ipratropium-albuterol 0.5 mg-3 mg(2.5 mg base)/3 mL solution for nebulization 3 ml inhalation Q4H PRN (Reason: shortness of breath or wheezing) Qty: 180 0RF Rx Instructions: until breathing returns to target peak flow/parameters glipizide 5 mg tablet 5 mg PO DAILY Lantus Solostar U-100 Insulin 100 unit/mL (3 mL) insulin pen 14 unit SUBCUT DAILY montelukast 10 mg tablet 10 mg PO DAILY lisinopril 2.5 mg tablet 2.5 mg PO DAILY Referrals: Patti Irwin DO [Primary Care Provider] - Coding Level of Care Code ED End User Consultant for Betty Vela
[2023-07-20 10:34] LABS: Creatine Phosphokinase 30 U/L (26-192); NT Pro B Type Natriuretic Pept 4094 pg/mL (0-450)
[2023-07-20 10:56] LABS: Troponin(5th) Baseline 24 ng/L (0-10)
[2023-07-20 11:33] LABS: Specific Gravity, Urine 1.015 (1.005-1.030); Urine Appearance Clear (CLEAR); Urine Color Yellow (Yellow); pH Urine 5 (5-7)
[2023-07-20 11:34] LABS: Add Urine Culture? No; Add Urine Microscopic? YES; Bacteria Urine 1+ /hpf; Bilirubin Urine Neg (Negative); Blood Urine Neg (Negative); Glucose Urine UA Norm (Normal); Ketones Urine 1+ (Negative); Leukocyte Esterase Urine 1+ (Negative); Nitrate Urine Negative (Negative); Protein Urine Neg (Negative); Squamous Epithelial Cell Urine 15-25 /hpf (0-5); Urobilinogen Urine Norm (Negative); WBC Urine 15-25 /hpf (0-5)
[2023-07-20 11:50] LABS: Troponin 5 2HR 22.78 ng/L (0-10)
--- NOTE | 2023-07-20 12:04 | ECG_ITS ---
[facility] Test Date: 2023-07-20 Pat Name: Paloma Slater Department: Room: 111 Gender: Female Field Tech: : 1940 Requested By: Duran Yeager Order Number: [id number] Latisha MD: Jaxon Fernandes M.D. Measurements Intervals [place] Rate: 82 P: 64 MD: 235 QRS: -30 QRSD: 148 T: 113 QT: 425 QTc: 497 Interpretive Statements SINUS RHYTHM WITH FIRST DEGREE AV BLOCK WITH FREQUENT SUPRAVENTRICULAR PREMATURE COMPLEXES LEFT BUNDLE BRANCH BLOCK [120+ ms QRS DURATION, 80+ ms Q/S IN V1/V2, 85+ ms R IN I/aVL/V5/V6] Compared to ECG 05/29/2023 23:03:40 First degree AV block now present Left bundle-branch block now present Indeterminate axis no longer present Intraventricular conduction delay no longer present Electronically Signed On 07-20-2023 15:11:47 CDT by Jaxon Fernandes M.D. [id number]
[2023-07-20 12:05] LABS: Troponin 5 2HR Delta -1.22 ABS# (0-10)
[2023-07-20] MEDS: enoxaparin 40 mg/0.4 mL Syringe SUBCUT (13:41)
[2023-07-20] MEDS: pantoprazole 40 mg SDV IVP (13:41)
[2023-07-20] MEDS: albuterol 2.5 mg/3 mL Neb INHALATION ×2 (15:12→20:20)
[2023-07-20 15:37] LABS: Troponin 5 6HR 21.23 ng/L (0-10)
[2023-07-20 16:09] LABS: Troponin 5 6HR Delta -2.77 ng/L (0-12)
[2023-07-20 16:42] LABS: Glucose Point of Care 162 mg/dL (70-110)
--- NOTE | 2023-07-20 17:13 | PM.HP ---
Providers/Chief Complaint Admitting Physician: Jay Muller DO Primary Care Provider: Patti Irwin DO Chief Complaint: CP History of Present Illness Paloma Slater is a 82 year old female with a past medical history of paroxysmal atrial fibrillation not on anticoagulation, type 2 diabetes, hypertension, renal artery stenosis, carotid artery stenosis, abdominal aortic aneurysm post repair, coronary artery disease, who presented to the emergency room with complaints of substernal chest pain. States that pain began last night while she was resting. She described it as located over the left side of her chest. She generally has nitro that she takes for chest pain, but she could not located to take it. She says that it is over 2 years old. She did at that time take 2 aspirins and was able to go back to bed. In the ER, she states that she still has some mild chest discomfort. She was started on a nitro patch, and said that her pain did improve. Her initial EKG in the ER showed sinus rhythm with frequent PACs, and a left bundle branch block that was present on previous. Chest x-ray showed stable cardiomegaly, no acute cardiopulmonary concerns. CBC showed very mild normocytic anemia, which is chronic for her. Her creatinine was 1.2, which is at her baseline. Troponins were 24 and 22.78, with a delta of -1.22. BNP was elevated to 4000, which also appears close to her baseline. She denies any shortness of breath. She was initially going to be discharged from the ER after a negative cardiac work-up. Soon after she did experience a nonsustained run of V. tach for about 10-15 beats. Discussed with the ER physician that we will admit and complete the ACS work-up, and keep her overnight to monitor on telemetry. Review of Systems General: Reports: 10 or more systems reviewed and unremarkable except in HPI and below Const: Denies: fever(s) or chills Eyes: Denies: change in vision ENMT: Denies: throat pain Card: Reports: chest pain; Denies: palpitations Resp: Denies: dyspnea GI: Denies: abdominal pain, nausea or vomiting Skin/Breast: Denies: rash Neuro: Denies: headache(s) Psych: Reports: anxiety Medications/Allergies Home Medications Medication Instructions Recorded Confirmed Last Taken Type flash glucose scanning reader #1 ea 03/04/22 07/20/23 Unknown Rx (FreeStyle Odell 14 Day [place]) flash glucose sensor (FreeStyle #2 ea 03/04/22 07/20/23 Unknown Rx Odell 14 Day Sensor kit) blood-glucose meter #1 ea 03/06/22 07/20/23 Unknown Rx pen needle, diabetic 32 gauge x #100 ea 04/12/22 07/20/23 Unknown Rx 5/32 (TechLITE Pen Needle) fluticasone propionate 50 2 spray intranasal DAILY PRN 06/27/22 07/20/23 02/15/23 History mcg/actuation nasal Allergy Symptoms spray,suspension (Flonase Allergy Relief) ondansetron 4 mg disintegrating 4 mg PO Q8H PRN nausea and 06/27/22 07/20/23 Unknown Rx tablet vomiting #15 tabs overnight oximetry #1 ea 12/17/22 07/20/23 Unknown Rx atorvastatin 80 mg tablet 80 mg PO BEDTIME #90 tabs 12/26/22 07/20/23 07/19/23 Rx breast prosthesis bilateral and #1 ea 02/05/23 07/20/23 Unknown Rx bras x4 budesonide-formoterol HFA 160 2 puff inhalation Q12H #10.2 grams 02/17/23 07/20/23 Unknown Rx mcg-4.5 mcg/actuation aerosol inhaler (Symbicort) albuterol sulfate 90 mcg/actuation 2 puff inhalation 6XD PRN 02/19/23 07/20/23 Unknown History aerosol inhaler (Ventolin HFA) Shortness Of Breath diphenhydramine HCl 25 mg capsule 25 mg PO BEDTIME PRN Allergy 02/19/23 07/20/23 Unknown History (Benadryl) Symptoms loratadine 10 mg tablet 10 mg PO QAM 02/19/23 07/20/23 07/20/23 History ipratropium 0.5 mg-albuterol 3 mg 3 ml inhalation Q4H PRN shortness 02/21/23 07/20/23 Unknown Rx (2.5 mg base)/3 mL nebulization of breath or wheezing #180 mL soln potassium chloride 10 mEq 10 meq PO BID #270 caps 03/03/23 07/20/23 07/20/23 Rx capsule,extended release budesonide 160 mcg-glycopyr 9 2 inh inhalation BID #10.7 grams 03/04/23 07/20/23 Unknown Rx mcg-formot 4.8 mcg/actuation HFA inhaler (Breztri Aerosphere) clopidogrel 75 mg tablet 75 mg PO BEDTIME #90 tabs 03/13/23 07/20/23 07/19/23 Rx blood sugar diagnostic (Blood #120 ea 05/12/23 07/20/23 Unknown Rx Glucose Test strips) carvedilol 6.25 mg tablet 6.25 mg PO BID #60 tabs 05/16/23 07/20/23 07/19/23 Rx glipizide 5 mg tablet 5 mg PO DAILY 05/30/23 07/20/23 07/20/23 History home oxygen 2l/m continuous #1 ea 06/04/23 07/20/23 Unknown Rx famotidine 20 mg tablet 20 mg PO BID #180 tabs 06/19/23 07/20/23 07/20/23 Rx furosemide 40 mg tablet (Lasix) 40 mg PO DAILY #90 tabs 06/19/23 07/20/23 07/20/23 Rx CPAP set to 6-16 with supplies #1 ea 07/07/23 07/20/23 Unknown Rx oxycodone 15 mg tablet 15 mg PO Q6H PRN pain 30 days #120 07/09/23 07/20/23 Unknown Rx tabs insulin glargine 100 unit/mL (3 14 unit SUBCUT DAILY 07/11/23 07/20/23 07/20/23 History mL) subcutaneous pen (Lantus Solostar U-100 Insulin) lisinopril 2.5 mg tablet 2.5 mg PO DAILY 07/20/23 07/20/23 07/20/23 History montelukast 10 mg tablet 10 mg PO DAILY 07/20/23 07/20/23 07/20/23 History Allergies Allergy/AdvReac Type Severity Reaction Status Date / Time adhesive tape Allergy Unknown Unknown Verified 07/20/23 09:19 bacitracin Allergy Unknown Unknown Verified 07/20/23 09:19 [From Neosporin ([id number])] codeine Allergy Unknown Unknown Verified 07/20/23 09:19 neomycin Allergy Unknown Unknown Verified 07/20/23 09:19 [From Neosporin ([id number])] penicillamine Allergy Unknown Unknown Verified 07/20/23 09:19 Penicillins Allergy Unknown Unknown Verified 07/20/23 09:19 polymyxin B Allergy Unknown Unknown Verified 07/20/23 09:19 [From Neosporin ([id number])] prochlorperazine Allergy Unknown Unknown Verified 07/20/23 09:19 [From Compazine] Sulfa (Sulfonamide Allergy Unknown Unknown Verified 07/20/23 09:19 Antibiotics) PFSH Acute PFSH: Medical History AAA (abdominal aortic aneurysm) Status post stent graft repair Acute respiratory failure with hypoxia and hypercarbia Anemia Anxiety Asthma Atopic dermatitis Atrial fib/flutter, transient B12 deficiency Bilateral breast cancer Carotid artery disease CHF (congestive heart failure) Diastolic/Systolic EF 37% 12/14 CHF (congestive heart failure) Chronic anticoagulation Chronic kidney disease Chronic pain COPD (chronic obstructive pulmonary disease) COPD (chronic obstructive pulmonary disease) CVA (cerebral vascular accident) Descending thoracic aortic 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, 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 Dyslipidemia MYRA (generalized anxiety disorder) History of COVID-12 Aug 2021 History of nonmelanoma skin cancer HTN (hypertension) Hypersomnia Nicotine dependence, cigarettes, with unspecified nicotine-induced disorders Obesity Osteoporosis Paroxysmal atrial fibrillation Pneumonia Renal artery stenosis Respiratory failure Seasonal allergies Surgical History History of aortic aneurysm repair History of stent insertion of renal artery History of total mastectomy of left breast 04/[address] Vo at [place], [place] S/P cholecystectomy S/P hysterectomy S/P mastectomy (08/2009) Right modified radical mastectomy S/P tonsillectomy Family History Other Stroke Social History Smoking and tobacco status: former smoker Quit status (tobacco): has quit using tobacco Year quit tobacco: 04/2023 Former quit date comment: smoked for 50+ years Alcohol intake: never Substance/Drug Use: never Vitals/I&O/Wt Last Vital Signs Temp 98.3 F 07/20/23 15:54 Pulse 81 07/20/23 15:54 Resp 20 H 07/20/23 15:54 BP 133/72 07/20/23 15:54 Pulse Ox 92 07/20/23 15:54 O2 Del Method Room Air 07/20/23 15:54 Weight last 48 hrs Weight 170 lb Physical Exam Narrative: General: Cooperative patient in no apparent distress. Well developed. HEENT: Normocephalic, Atraumatic. External ears normal. Nasal passages patent without drainage. MMM. Heart: RRR. Resp: LCTA. No respiratory distress, no use of accessory muscles. Abd: Soft, non-tender. Non-distended. Extremities: No edema. Skin: No rash or lesions on exposed areas. Data 07/20/23 09:22 07/20/23 09:22 A&P Assessment and plan (1) Chest pain: (2) Paroxysmal atrial fibrillation: (3) CHF (congestive heart failure): Qualifiers: Heart failure type: diastolic Heart failure chronicity: chronic Qualified Code(s): I50.32 - Chronic diastolic (congestive) heart failure (4) Dyslipidemia: (5) Diabetes 1.5, managed as type 2: (6) Nicotine dependence, cigarettes, with unspecified nicotine-induced disorders: (7) HTN (hypertension): Qualifiers: Hypertension type: primary hypertension Qualified Code(s): I10 - Essential (primary) hypertension (8) Carotid artery disease: Qualifiers: Carotid artery disease type: stenosis Laterality: bilateral Qualified Code(s): I65.23 - Occlusion and stenosis of bilateral carotid arteries Plan 82-year-old female admitted for acute chest pain and nonsustained V. tach. We will admit overnight for observation to cardiac stepdown. Initial EKGs were similar to previous. Troponins are initially negative. Serial troponin and EKG. Hold home glipizide. Continue Lantus, SSI, Accu-Cheks. We will continue her statin, Plavix. Lovenox for VTE ppx. Home medications for other chronic illnesses. Anticipate that she may be able to discharge tomorrow if work-up is unremarkable, no further runs on telemetry. Code Status: Full IVF: None DVT PPx: Lovenox GI PPx: Protonix ABx: None Diet: Cardiac, carb consistent Discharge plan: Home when able Attestations Medical Necessity Statement*: Admitted overnight for observation for acute chest pain, cardiac work-up, telemetry. Coding Level of Care Code Acute Code for Chg Fwd Moderate MDM includes number and complexity of problems actively addressed during encounter, amount and/or complexity of data reviewed/ordered and described risk of complication, morbidity or mortality of management as documented Diagnoses Chest pain R07.9 Paroxysmal atrial fibrillation I48.0 CHF (congestive heart failure) I50.32 Heart failure type: diastolic Heart failure chronicity: chronic Dyslipidemia E78.5 Diabetes 1.5, managed as type 2 E13.9 Nicotine dependence, cigarettes, with unspecified nicotine-induced disorders F17.219 HTN (hypertension) I10 Hypertension type: primary hypertension Carotid artery disease I65.23 Carotid artery disease type: stenosis Laterality: bilateral
[2023-07-20] MEDS: insulin lispro 100 unit/1 mL SUBCUT (17:26)
[2023-07-20] MEDS: potassium chloride ER 10 mEq Tablet PO (17:27)
[2023-07-20] MEDS: carvedilol 6.25 mg Tablet PO (17:27)
--- NOTE | 2023-07-20 18:15 | ECG_ITS ---
[facility] Test Date: 2023-07-20 Pat Name: Paloma Slater Department: Room: 111 Gender: Female Dogman/Woman: : 1940 Requested By: Jay Flores Order Number: [id number] Latisha MD: Jaxon Fernandes M.D. Measurements Intervals [place] Rate: 79 P: 58 [place]: 214 QRS: -28 QRSD: 148 T: 134 QT: 372 QTc: 427 Interpretive Statements SINUS RHYTHM WITH FIRST DEGREE AV BLOCK WITH FREQUENT SUPRAVENTRICULAR PREMATURE COMPLEXES LEFT BUNDLE BRANCH BLOCK [120+ ms QRS DURATION, 80+ ms Q/S IN V1/V2, 85+ ms R IN I/aVL/V5/V6] Compared to ECG 07/20/2023 12:04:42 No significant changes Electronically Signed On 07-21-2023 8:14:49 CDT by Jaxon Fernandes M.D. [id number]
[2023-07-20 20:16] LABS: Glucose Point of Care 188 mg/dL (70-110)
[2023-07-20] MEDS: budesonide 0.5 mg/2 mL Neb INHALATION (20:20)
[2023-07-20] MEDS: clopidogrel 75 mg Tablet PO (20:57)
[2023-07-20] MEDS: atorvastatin 40 mg Tablet 80 MG PO (20:57)
[2023-07-20] MEDS: insulin glargine 100 units/1 mL 10 UNIT SUBCUT (20:58)
[2023-07-21] VITALS (7 sets, daily range): BP systolic 116–150; BP diastolic 58–90; PULSE 63–91; RESP 13–25; TEMP 36.7–37; O2SAT 94–98
[2023-07-21] MEDS: oxyCODONE 5 mg IR Tab/Cap 15 MG PO (01:48)
[2023-07-21 03:28] LABS: Basophils % 0.5 %; Eosinophils # 0.6 10^3/uL (0.0-0.8); Eosinophils % 7.5 %; Hematocrit 32.6 % (36-47); Lymphocytes # 2.7 10^3/uL (0.8-4.8); Lymphocytes % 33.9 %; Mean Corpuscular Hemoglobin 28.4 pg (27-33); Mean Corpuscular Volume 91.6 fl (85-98); Mean Platelet Volume 10.3 fL (7.4-10.4); Monocytes # 0.8 10^3/uL (0.2-0.9); Monocytes % 9.4 %; Neutrophils # 3.91 10^3/uL (1.8-7.7); Neutrophils % 48.5 %; Nucleated Red Blood Cells % 0 %; Platelet Count 312 10^3/cmm (157-399); Red Blood Count 3.56 10^6/uL (3.85-5.65); Red Cell Distribution Width 15.1 % (12.1-15.1); White Blood Count 8.08 10^3/uL (3.29-11.43)
[2023-07-21 03:49] LABS: Chol HDL Ratio 4.25 mg/dL (0.0-4.40); Cholesterol 136 mg/dL (0-200); HDL Cholesterol 32 mg/dL (60-100); LDL Cholesterol Calculated 69 mg/dL (50-129); LDL HDL Ratio 2.16 RATIO (0.00-3.22); Triglycerides 174 mg/dL (0-150)
[2023-07-21 03:57] LABS: Alanine Aminotransferase 11 U/L (0-33); Albumin Level 3.2 g/dL (3.5-5.2); Alkaline Phosphatase 119 U/L (35-105); Anion Gap 7.2 (5-19); Aspartate Amino Transferase 11 U/L (0-32); Blood Urea Nitrogen 13 mg/dL (8-23); Calcium 8.4 mg/dL (8.5-10.5); Carbon Dioxide 32 mmol/L (22-29); Chloride 105 mmol/L (98-107); Creatinine Clr Calc Pharmacy 35.9505; Globulin 2.5 g/dL (1.3-4.6); Glucose 114 mg/dL (65-115); Magnesium 1.7 mg/dL (1.7-2.3); Osmolality Calculated 291 mOsm/kg (285-295); Potassium 4.2 mmol/L (3.5-5.1); Sodium 140 mmol/L (136-145); Thyroid Stimulating Hormone 1.18 uIU/mL (0.27-4.20); Total Bilirubin 0.2 mg/dL (0.15-1.2); Total Protein 5.7 g/dL (6.6-8.7)
[2023-07-21 03:59] LABS: Estmated Average Glucose 146; Hemoglobin A1C 6.7 % (4.0-6.0)
[2023-07-21 06:48] LABS: Glucose Point of Care 109 mg/dL (70-110)
--- NOTE | 2023-07-21 07:38 | USCV_ITS ---
Paloma Slater Age: 82 Gender: F : 1940 Exam Date: 07/21/2023 08:19 Ordering Phys: Gurmeet Vega MD Technologist: Kel Lane Exam Location: [facility] [place] Indication: BP: 116 / 58 HR: 82 Rhythm: Sinus Technical Quality: Adequate MEASUREMENTS (Male / Female) Normal Values 2D ECHO LV Diastolic Diameter PLAX 4.5 cm 4.2 - 5.9 / 3.9 - 5.3 cm LV Systolic Diameter PLAX 3.4 cm IVS Diastolic Thickness 1.2 cm 0.6 - 1.0 / 0.6 - 0.9 cm IVS Systolic Thickness 2.0 cm LVPW Diastolic Thickness 1.3 cm 0.6 - 1.0 / 0.6 - 0.9 cm LVPW Systolic Thickness 1.7 cm LVOT Diameter 2.1 cm LV Ejection Fraction 2D Teich 50.6 % LV Ejection Fraction MOD 2C 61.7 % LV Ejection Fraction 2C AL 61.3 % LA Diameter 4.3 cm M-MODE Aortic Annulus Diameter 4.3 cm LA Ao Ratio MM 1.1 MV E Point Septal Separation 3.0 cm DOPPLER AV Peak Velocity 144.0 cm/s LVOT Peak Velocity 94.0 cm/s AV Area Cont Eq vti 2.3 cm squared AV Area Cont Eq pk 2.2 cm squared MV Area PHT 5.0 cm squared Mitral E to A Ratio 2.2 MV E' Velocity 77.0 cm/s Mitral E to MV E' Ratio 19.8 Mitral E to LV E' Lateral Ratio 16.3 Mitral E to LV E' Septal Ratio 25.4 TR Peak Velocity 211.0 cm/s TR Peak Gradient 17.8 mmHg TV Peak E Velocity 101.0 cm/s Right Atrial Pressure 3.0 mmHg Pulmonary Artery Systolic Pressu 20.8 mmHg RV Acceleration Time 0.1 s FINDINGS Left Ventricle Mildly dilated LV cavity. Diffuse hypokinesia left-ventricular. Ejection fraction around 40 to 45%. (visual).Grade III/IV diastolic dysfunction (restrictive filling pattern), severely elevated filling pressures. Moderate left ventricular hypertrophy. Right Ventricle The right ventricle is normal in size and function. Right Atrium The right atrium is normal in size. Left Atrium Mildly increased left atrial size. Mitral Valve Thickened mitral valve. Moderate mitral annular calcification. Mild-moderate mitral valve regurgitation. Aortic Valve Thickened aortic valve. Tricuspid Valve No gross abnormalities noted . Pulmonic Valve No gross abnormalities noted Pericardium Normal pericardium without effusion. Aorta Normal ascending aorta dimension. IVC The inferior vena cava appears normal. CONCLUSIONS Mildly dilated LV cavity. Diffuse hypokinesia left-ventricular. Ejection fraction around 40 to 45%. (visual).Grade III/IV diastolic dysfunction (restrictive filling pattern), severely elevated filling pressures. Moderate left ventricular hypertrophy. Mildly increased left atrial size. Thickened mitral valve. Moderate mitral annular calcification. Mild-moderate mitral valve regurgitation. Thickened aortic valve. There is no pericardial effusion. There are no intracardiac masses. Pulmonary artery systolic pressure is within normal limits. Compared to the study from 02/19/2023, there is a drop in the LV ejection fraction Dr Jazmín Aguiar MD [facility] (Electronically Signed) Final Date: 21 July 2023 21:03 S
[2023-07-21] MEDS: budesonide 0.5 mg/2 mL Neb INHALATION (08:19)
[2023-07-21] MEDS: albuterol 2.5 mg/3 mL Neb INHALATION (08:19)
[2023-07-21] MEDS: lisinopril 2.5 mg Tablet PO (09:03)
[2023-07-21] MEDS: potassium chloride ER 10 mEq Tablet PO (09:03)
[2023-07-21] MEDS: FUROsemide 40 mg Tablet PO (09:03)
[2023-07-21] MEDS: montelukast sodium 10 mg Tablet PO (09:03)
[2023-07-21] MEDS: carvedilol 6.25 mg Tablet PO (09:03)
--- NOTE | 2023-07-21 09:37 | P.DS_ITS ---
Discharge Providers Date of Admission: 07/20/23 13:19 Date of Discharge: July 21, 2023 Attending Provider at Admission: Jay Muller DO Attending Provider at Discharge: Gurmeet Vega MD Primary Care Provider: Patti Irwin DO Diagnoses at Discharge Discharge Diagnosis (1) Chest pain: Status: Acute (2) Paroxysmal atrial fibrillation: Status: Chronic (3) CHF (congestive heart failure): Status: Chronic Qualifiers: Heart failure type: diastolic Heart failure chronicity: chronic Qualified Code(s): I50.32 - Chronic diastolic (congestive) heart failure (4) Dyslipidemia: Status: Acute (5) Diabetes 1.5, managed as type 2: Status: Chronic (6) Nicotine dependence, cigarettes, with unspecified nicotine-induced disorders: Status: Chronic (7) HTN (hypertension): Status: Chronic Qualifiers: Hypertension type: primary hypertension Qualified Code(s): I10 - Essential (primary) hypertension (8) Carotid artery disease: Status: Chronic Qualifiers: Carotid artery disease type: stenosis Laterality: bilateral Qualified Code(s): I65.23 - Occlusion and stenosis of bilateral carotid arteries Reason for Visit Reason for Visit: CP Hospital Course Hospital Course Paloma Slater is a 82 year old female with a past medical history of paroxysmal atrial fibrillation not on anticoagulation, type 2 diabetes, hypertension, renal artery stenosis, carotid artery stenosis, abdominal aortic aneurysm post repair, coronary artery disease, who presented to the emergency room with complaints of substernal chest pain.? States that pain began last night while she was resting.? She described it as located over the left side of her chest.? She generally has nitro that she takes for chest pain, but she could not located to take it.? She says that it is over 2 years old.? She did at that time take 2 aspirins and was able to go back to bed. In the ER, she states that she still has some mild chest discomfort.? She was started on a nitro patch, and said that her pain did improve.? Her initial EKG in the ER showed sinus rhythm with frequent PACs, and a left bundle branch block that was present on previous.? Chest x-ray showed stable cardiomegaly, no acute cardiopulmonary concerns. CBC showed very mild normocytic anemia, which is chronic for her.? Her creatinine was 1.2, which is at her baseline.? Troponins were 24 and 22.78, with a delta of -1.22.? BNP was elevated to 4000, which also appears close to her baseline. She denies any shortness of breath. She was initially going to be discharged from the ER after a negative cardiac work-up.? Soon after she did experience a nonsustained run of V. tach for about 10-15 beats.? Discussed with the ER physician that we will admit and complete the ACS work-up, and keep her overnight to monitor on telemetry. Patient was [facility] for chest pain, for 6-hour troponin was 21.33 down from -2.77, no recurrent chest pain during hospitalization, EKG showed sinus rhythm, she has history of left bundle branch block. On examination 07/21/2023, patient's chest pain seems atypical more musculoskeletal in nature, she has tenderness to palpation under the left breast, no pleuritic-like pain, no fevers, no chills. Nonetheless with her history of smoking, history of CAD, history of nonsustained V. tach I strongly recommended her to stay as inpatient and complete a stress test. However patient did not want to do a stress test nor does she want to stay here in the hospital. I discussed the morbidity and mortality associate with CAD, risk of arrhythmia, risk of significant , she voiced understanding, offered zoster, however declined for now. I advised patient if she were to have any recurrent chest pain to go to the emergency room, follow-up with cardiology in 1 to 2 weeks for consideration of stress testing as outpatient if she were to have any recurrent chest pain to come to the emergency room. Nonetheless have discharged her on aspirin, continue her home Plavix, continue beta-amaya, continue statin, nitro as needed for chest pain, For patient's nonsustained V. tach, her magnesium was low at 1.7 discharged on magnesium tablet, continue Plavix on discharge continue Coreg, follow-up with cardiology as outpatient with event monitor Discharge Physical Exam Const: COMMON NORMALS: no acute distress and patient oriented x3 Resp: COMMON NORMALS: normal respiratory effort, No retractions, No use of accessory muscles and clear to auscultation bilaterally AUSCULTATION: clear to auscultation bilaterally Cardio: COMMON NORMALS: regular rate, regular rhythm, S1 normal heart sound present and S2 normal heart sound present RATE: regular rate RHYTHM: regular rhythm HEART SOUNDS: S1 normal heart sound present and S2 normal heart sound present GI: COMMON NORMALS: Normal to inspection, nondistended, normoactive bowel sounds present and non-tender Extremity: COMMON NORMALS: no pedal edema Neuro: COMMON NORMALS: patient oriented x3 Psych: COMMON NORMALS: mental status grossly normal Discharge Data Studies Completed and Pending Completed Studies During Hospitalization Category Date Time Status XR chest 1V portable [id number] Stat Exams 07/20/23 09:21 Completed Pending at discharge Category Date Time Status CV. echo complete* [id number] Routine Ultrasound 07/21/23 07:38 Taken Radiology Impressions Chest X-Ray 07/20/23 09:21 IMPRESSION: Stable cardiomegaly. No acute abnormality. Laboratory Results WBC 8.08 10^3/uL (3.29-11.43) 07/21/23 03:10 RBC 3.56 10^6/uL (3.85-5.65) L 07/21/23 03:10 Hgb 10.10 g/dL (11.27-16.99) L 07/21/23 03:10 Hct 32.6 % (36-47) L 07/21/23 03:10 MCV 91.6 fl (85-98) 07/21/23 03:10 MCH 28.4 pg (27-33) 07/21/23 03:10 MCHC 31.0 g/dL (30-55) 07/21/23 03:10 RDW 15.1 % (12.1-15.1) 07/21/23 03:10 Plt Count 312 10^3/cmm (157-399) 07/21/23 03:10 MPV 10.3 fL (7.4-10.4) 07/21/23 03:10 Neut % (Auto) 48.5 % 07/21/23 03:10 Lymph % (Auto) 33.9 % 07/21/23 03:10 [place] % (Auto) 9.4 % 07/21/23 03:10 Eos % (Auto) 7.5 % 07/21/23 03:10 Baso % (Auto) 0.5 % 07/21/23 03:10 Neut # (Auto) 3.91 10^3/uL (1.8-7.7) 07/21/23 03:10 Lymph # (Auto) 2.7 10^3/uL (0.8-4.8) 07/21/23 03:10 [place] # (Auto) 0.8 10^3/uL (0.2-0.9) 07/21/23 03:10 Eos # (Auto) 0.6 10^3/uL (0.0-0.8) 07/21/23 03:10 Baso # (Auto) 0.0 10^3/uL (0.0-0.1) 07/21/23 03:10 Nucleated RBC % (auto) 0 % 07/21/23 03:10 Nucleated RBCs # 0.0 /100WBC 07/21/23 03:10 Sodium 140 mmol/L (136-145) 07/21/23 03:10 Potassium 4.2 mmol/L (3.5-5.1) 07/21/23 03:10 Chloride 105 mmol/L (98-107) 07/21/23 03:10 Carbon Dioxide 32 mmol/L (22-29) H 07/21/23 03:10 Anion Gap 7.2 (5-19) 07/21/23 03:10 BUN 13 mg/dL (8-23) 07/21/23 03:10 Creatinine 1.2 mg/dL (0.5-0.9) H 07/21/23 03:10 GFR Calculation Not Reportable 07/21/23 03:10 Glucose 114 mg/dL (65-115) 07/21/23 03:10 POC Glucose 109 mg/dL (70-110) 07/21/23 06:33 Estimat Average Glucose 146 07/21/23 03:10 Hemoglobin A1c 6.7 % (4.0-6.0) H 07/21/23 03:10 Calculated Osmolality 291 mOsm/kg (285-295) 07/21/23 03:10 Calcium 8.4 mg/dL (8.5-10.5) L 07/21/23 03:10 Magnesium 1.7 mg/dL (1.7-2.3) 07/21/23 03:10 Total Bilirubin 0.2 mg/dL (0.15-1.2) 07/21/23 03:10 AST 11 U/L (0-32) 07/21/23 03:10 ALT 11 U/L (0-33) 07/21/23 03:10 Alkaline Phosphatase 119 U/L (35-105) H 07/21/23 03:10 Creatine Kinase 30 U/L (26-192) 07/20/23 09:22 Troponin T Baseline 24 ng/L (0-10) H 07/20/23 09:22 Troponin T 120 Minute 22.78 ng/L (0-10) H 07/20/23 11:22 Delta Troponin T -1.22 ABS# (0-10) L 07/20/23 11:22 Troponin T Hi Sens 6Hr 21.23 ng/L (0-10) H 07/20/23 14:50 Troponin T Hi Sens 6Hr Delta -2.77 ng/L (0-12) L 07/20/23 14:50 NT-Pro-B Natriuret Pep 4094 pg/mL (0-450) H 07/20/23 09:22 Total Protein 5.7 g/dL (6.6-8.7) L 07/21/23 03:10 Albumin 3.2 g/dL (3.5-5.2) L 07/21/23 03:10 Globulin 2.5 g/dL (1.3-4.6) 07/21/23 03:10 Triglycerides 174 mg/dL (0-150) H 07/21/23 03:10 Cholesterol 136 mg/dL (0-200) 07/21/23 03:10 LDL Cholesterol, Calc 69 mg/dL (50-129) 07/21/23 03:10 HDL Cholesterol 32 mg/dL (60-100) L 07/21/23 03:10 LDL/HDL Ratio 2.16 RATIO (0.00-3.22) 07/21/23 03:10 Cholesterol/HDL Ratio 4.25 mg/dL (0.0-4.40) 07/21/23 03:10 TSH 1.18 uIU/mL (0.27-4.20) 07/21/23 03:10 Urine Color Yellow (Yellow) 07/20/23 10:55 Urine Appearance Clear (CLEAR) 07/20/23 10:55 Urine pH 5 (5-7) 07/20/23 10:55 Ur Specific [place] 1.015 (1.005-1.030) 07/20/23 10:55 Urine Protein Neg (Negative) 07/20/23 10:55 Urine Glucose (UA) Norm (Normal) 07/20/23 10:55 Urine Ketones 1+ (Negative) H 07/20/23 10:55 Urine Blood Neg (Negative) 07/20/23 10:55 Urine Nitrate Negative (Negative) 07/20/23 10:55 Urine Bilirubin Neg (Negative) 07/20/23 10:55 Urine Urobilinogen Norm mg/dL (Negative) 07/20/23 10:55 Ur Leukocyte Esterase 1+ (Negative) H 07/20/23 10:55 Urine RBC None /hpf (0-2) 07/20/23 10:55 Urine WBC 15-25 /hpf (0-5) H 07/20/23 10:55 Ur Squamous Epith Cells 15-25 /hpf (0-5) H 07/20/23 10:55 Amorphous Sediment Not Reportable 07/20/23 10:55 Urine Bacteria 1+ /hpf (NONE) H 07/20/23 10:55 Vitals Last Vital Signs Temp 98.1 F 07/21/23 08:00 Pulse 91 07/21/23 08:34 Resp 18 07/21/23 08:18 BP 150/90 07/21/23 08:00 Pulse Ox 96 07/21/23 08:18 O2 Del Method Nasal Cannula 07/21/23 08:18 O2 Flow Rate 2 07/21/23 08:18 Discharge Plan Discharge Patient Disposition: Home Condition: Stable Prescriptions: New aspirin 81 mg capsule 81 mg PO DAILY 30 Days Qty: 30 0RF magnesium L-lactate 84 mg tablet extended release 84 mg PO DAILY 30 Days Qty: 30 0RF nitroglycerin 0.4 mg tablet, sublingual 0.4 mg sublingual Q5M PRN (Reason: chest pain) 30 Days Qty: 30 0RF Rx Instructions: do not exceed 3 doses per episode Continued (DME) overnight oximetry See Rx Instructions .Route .MEDSUPPLY Qty: 1 0RF Rx Instructions: As directed budesonide-formoterol [Symbicort] 160-4.5 mcg/actuation HFA aerosol inhaler 2 puff inhalation Q12H Qty: 10.2 2RF Breztri Aerosphere 160-9-4.8 mcg/actuation HFA aerosol inhaler 2 inh inhalation BID Qty: 10.7 6RF (DME) FreeStyle [place] 14 Day Sensor Kit See Rx Instructions .Route Qty: 2 11RF Rx Instructions: As directed (DME) FreeStyle [place] 14 Day [place] Misc See Rx Instructions .Route Qty: 1 0RF Rx Instructions: As directed (DME) blood-glucose meter Misc See Rx Instructions .Route Qty: 1 0RF Rx Instructions: As directed with testing strips (DME) pen needle, diabetic [TechLITE Pen Needle] 32 gauge x 5/32 needle See Rx Instructions .Route Qty: 100 0RF Rx Instructions: As directed atorvastatin 80 mg tablet 80 mg PO BEDTIME Qty: 90 3RF (DME) breast prosthesis bilateral and bras x4 See Rx Instructions .Route .MEDSUPPLY Qty: 1 0RF Rx Instructions: As directed potassium chloride 10 mEq capsule, extended release 10 meq PO BID Qty: 270 0RF clopidogrel 75 mg tablet 75 mg PO BEDTIME Qty: 90 3RF (DME) Blood Glucose Test Strip See Rx Instructions .Route Qty: 120 12RF Rx Instructions: free style test strips - test qid carvedilol 6.25 mg tablet 6.25 mg PO BID Qty: 60 0RF (DME) home oxygen 2l/m continuous See Rx Instructions .Route .MEDSUPPLY Qty: 1 0RF Rx Instructions: As directed Lasix 40 mg tablet 40 mg PO DAILY Qty: 90 1RF famotidine 20 mg tablet 20 mg PO BID Qty: 180 1RF (DME) CPAP set to 6-16 with supplies See Rx Instructions .Route .MEDSUPPLY Qty: 1 0RF Rx Instructions: As directed oxycodone 15 mg tablet 15 mg PO Q6H PRN (Reason: pain) 30 Days Qty: 120 0RF fluticasone propionate [Flonase Allergy Relief] 50 mcg/actuation spray,suspension 2 spray intranasal DAILY PRN (Reason: Allergy Symptoms) Rx Instructions: administer into each nostril ondansetron 4 mg tablet,disintegrating 4 mg PO Q8H PRN (Reason: nausea and vomiting) Qty: 15 0RF diphenhydramine HCl [Benadryl] 25 mg Capsule 25 mg PO BEDTIME PRN (Reason: Allergy Symptoms) albuterol sulfate [Ventolin HFA] 90 mcg/actuation HFA aerosol inhaler 2 puff inhalation 6XD PRN (Reason: Shortness Of Breath) loratadine 10 mg tablet 10 mg PO QAM ipratropium-albuterol 0.5 mg-3 mg(2.5 mg base)/3 mL solution for nebulization 3 ml inhalation Q4H PRN (Reason: shortness of breath or wheezing) Qty: 180 0RF Rx Instructions: until breathing returns to target peak flow/parameters glipizide 5 mg tablet 5 mg PO DAILY Lantus Solostar U-100 Insulin 100 unit/mL (3 mL) insulin pen 14 unit SUBCUT DAILY montelukast 10 mg tablet 10 mg PO DAILY lisinopril 2.5 mg tablet 2.5 mg PO DAILY Discharge Orders: Discharge Order (Routine); Ordered 07/21/23 Ordered By: Gurmeet Vega Other Ambulatory Orders: MCT/Event Monitor 30 Days (Routine) Timeframe: 1 Day Facility: [facility] - Location: Radiology Ordered By: Gurmeet Vega Referrals: Jonnie Reese MD [Physician] - 1 week Patti Irwin DO [Primary Care Provider] - Discharge Diet: Cardiac Discharge Activity: Resume usual activity Patient Instructions: Opioid Safety, Quitting Smoking Activity Restrictions/Additional Instructions: - If you have any recurrent chest pain please go to emergency room -If you have any recurrent chest pain go to emergency room -Patient was advised to stop smoking Discharge Attestations Time Spent in Discharge Care*: greater than 30 min Time Spent in Smoking Cessation: 3 to 10 minutes Quality Metrics Clinical Quality Measures [ No reported AMI, CVA or VTE this stay] Coding Level of Care Code 11333 Total time (in minutes) for Discharge: 45 Diagnoses Chest pain R07.9 Paroxysmal atrial fibrillation I48.0 CHF (congestive heart failure) I50.32 Heart failure type: diastolic Heart failure chronicity: chronic Dyslipidemia E78.5 Diabetes 1.5, managed as type 2 E13.9 Nicotine dependence, cigarettes, with unspecified nicotine-induced disorders F17.219 HTN (hypertension) I10 Hypertension type: primary hypertension Carotid artery disease I65.23 Carotid artery disease type: stenosis Laterality: bilateral
--- NOTE | 2023-07-21 10:36 | PC.CHAP ---
Pastoral Care Encounter/Spiritual Assessment Type of Contact [] Declined lens shaper grinder visit [] Patient/Family/Request visit [] Outpatient visit [] Follow-up visit [] Physician referral [] Code/Alert [x] Routine visit [] Staff referral [] Actively dying [] Patient sleeping [] Family support [] [] Out of room [] Palliative care [] [x] Receiving care in room [] Pre-surgical visit [] Trauma [] Long length of stay [] ICU visit [] Other: Relational/Emotional Strength [] Patient feels connected with others/family/visitors/staff [] Distress [] Loneliness/isolation [] Abandonment Spirituality of Patient [] Person of Fidelina [] Attends Jehovah'S Witness of their Fidelina [] Believes in Prayer [] Reads Bible or Jehovah'S Witness materials [] There are Spiritual issues to be addressed Sports Specialist Interventions [] Prayer [] Active listening [] Non-anxious presence [] Spiritual/emotional support [] Crisis/trauma care [] Spiritual counseling [] Bereavement support [] Provided bereavement packet [] Provided Bible/devotional materials [] Provided toy/stuffed animal, coloring book to patient or family member [] Provided Communion [] Anointing/[place] [] Salvation [] Completed spiritual assessment [] Other: Impact on Illness or Injury [] Angry [] Fearful [] Anxious [] Often cries [] Exhaustion [] Unable to work [] Unable to attend confucianism [] Unable to walk/stand [] Unable to read [] Unable to drive [] Unable to eat/drink [] Unable to sleep [] Unable to be with family [] Patient intubated [] Other: Summary Time spent with patient
--- NOTE | 2023-07-21 11:42 | PC.NURSE ---
discharge instructions Instructed pt to call [facility] if they have not heard from them tomorrow afternoon in regards to cardiology appointment with college administrator and event monitor. discuss to pt her new meds and continued home meds. pt verbalizes understanding.
== END 2023-07-21 11:42 | disposition home or self-care (01) ==
LOC: ER 10:26 → CSU 13:35
PROVIDERS: Admitting Provider Family Medicine; Emergency Provider Family Medicine; PCP Family Medicine; Visit Provider Family Medicine
DX: R07.9 Chest pain, unspecified (principal); I48.0 Paroxysmal atrial fibrillation; I11.0 Hypertensive heart disease with heart failure; I50.22 Chronic systolic (congestive) heart failure; E78.5 Hyperlipidemia, unspecified; E13.9 Other specified diabetes mellitus without complications; F17.219 Nicotine dependence, cigarettes, with unspecified nicotine-induced disorders; I65.23 Occlusion and stenosis of bilateral carotid arteries; I05.9 Rheumatic mitral valve disease, unspecified; I35.8 Other nonrheumatic aortic valve disorders; I44.7 Left bundle-branch block, unspecified
CPT/HCPCS: 36415; 36416; 71045; 80053; 80061; 81001; 82550; 82962; 83036; 83735; 83880; 84443; 84484; 85025; 93005; 93306; 94640; 96361; 96372; 96374; 96375; 99285; C9113; G0378; J1650; J1815; J2405; J7613; J7626

== ENCOUNTER 2023-08-12 00:06 | Emergency (ER) | payer MEDICARE, SELFPAY ==
[2023-08-12 00:09] VITALS: BP 189/143; PULSE 140; RESP 28; O2SAT 83; BMI 32.5
--- NOTE | 2023-08-12 00:18 | ECG_ITS ---
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 Measurements Intervals [place] Rate: 133 P: 0 RI: 0 QRS: -28 QRSD: 140 T: 134 QT: 309 QTc: 460 Interpretive Statements ATRIAL FIBRILLATION WITH RAPID VENTRICULAR RESPONSE WITH ABERRANT CONDUCTION OR VENTRICULAR PREMATURE COMPLEXES POSSIBLE RIGHT VENTRICULAR CONDUCTION DELAY [RSR (QR) IN V1/V2] LEFT BUNDLE BRANCH BLOCK [120+ ms QRS DURATION, 80+ ms Q/S IN V1/V2, 85+ ms R IN I/aVL/V5/V6] Compared to ECG 07/20/2023 18:24:31 Aberrant conduction of supraventricular beat(s) now present Ventricular premature complex(es) now present Sinus rhythm no longer present First degree AV block no longer present Electronically Signed On 08-12-2023 8:35:40 CDT by Jaxon Fernandes M.D. [id number]
--- NOTE | 2023-08-12 00:18 | XRR_ITS ---
PROCEDURE INFORMATION: Exam: XR Chest Exam date and time: 08/12/2023 12:25 AM Age: 82 years old Clinical indication: Prior surgery; Surgery date: 6+ months; Surgery type: Breast cancer; Patient HX: Dyspnea, possible allergic reaction to med TECHNIQUE: Imaging protocol: Radiologic exam of the chest. Views: 1 view. COMPARISON: CR (CHEST, ) 07/20/2023 9:50 AM FINDINGS: Lungs: Lungs are well expanded. Peribronchial thickening, thickening of the right minor fissure, and mild septal thickening. Pleural spaces: Small bilateral pleural effusions. No pneumothorax. Heart/Mediastinum: Stable enlarged cardiac silhouette. Aortic calcifications. Bones/joints: No acute osseous abnormality. XR/XR chest 1V portable [id number] IMPRESSION: Stable enlargement of the cardiac silhouette with interval development of mild interstitial pulmonary edema and small bilateral pleural effusions.
[2023-08-12] MEDS: dilTIAZem 5 mg/mL SDV 5 mL 10 MG IVP (00:25)
[2023-08-12] MEDS: ondansetron 2 mg/ML SDV 2 mL 4 MG IVP (00:25)
--- NOTE | 2023-08-12 00:25 | W.ED.SOB ---
HPI - SOB/Dyspnea General: Chief Complaint: Shortness of Breath/Dyspnea Stated Complaint: cant breath Time Seen by Provider: 08/12/23 00:15 History of Present Illness: HPI Narrative: Patient arrived to the ER with complaints of shortness of breath and heart racing. Patient says this started about 6 PM. An hour before that patient took 1 dose of doxycycline for swelling on her right eyelid. She was seen in urgent care for that. Patient is thinks that this is the reaction from taking the medicine. Does have insulin-dependent diabetes and is on Plavix. Patient does have a history of paroxysmal atrial fibrillation Review of Systems General: Reports: 10 or more systems reviewed and unremarkable except in HPI and below PFSH ED PFSH: Medical History AAA (abdominal aortic aneurysm) Status post stent graft repair Acute respiratory failure with hypoxia and hypercarbia Anemia Anxiety Asthma Atopic dermatitis Atrial fib/flutter, transient B12 deficiency Bilateral breast cancer Carotid artery disease CHF (congestive heart failure) CHF (congestive heart failure) Chronic anticoagulation Chronic kidney disease Chronic pain COPD (chronic obstructive pulmonary disease) COPD (chronic obstructive pulmonary disease) CVA (cerebral vascular accident) Descending thoracic aortic 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, 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 Dyslipidemia MYRA (generalized anxiety disorder) History of COVID-12 Aug 2021 History of nonmelanoma skin cancer HTN (hypertension) Hypersomnia Nicotine dependence, cigarettes, with unspecified nicotine-induced disorders Obesity Osteoporosis Paroxysmal atrial fibrillation Pneumonia Renal artery stenosis Respiratory failure Seasonal allergies Surgical History History of aortic aneurysm repair History of stent insertion of renal artery History of total mastectomy of left breast 04/[address] Vo at [place], [place] S/P cholecystectomy S/P hysterectomy S/P mastectomy (08/2009) Right modified radical mastectomy S/P tonsillectomy Family History Other Stroke Social History Smoking and tobacco status: current some day smoker Quit status (tobacco): has quit using tobacco Year quit tobacco: 04/2023 Former quit date comment: smoked for 50+ years Alcohol intake: never Substance/Drug Use: never Physical Exam Const: COMMON NORMALS: no acute distress, average body habitus, patient oriented x3, no limitations, healthy appearing, alert and well nourished HENMT: COMMON NORMALS: normocephalic, atraumatic, hearing grossly normal bilaterally, external ears normal, Normal external nose present and moist oral mucous membranes HEAD & SCALP: normocephalic and atraumatic NOSE: Normal external nose present EXTERNAL EAR: Yes external ears normal Neck/C-Spine: COMMON NORMALS: no JVD Chest: COMMONS NORMALS: normal inspection of the chest and normal palpation of entire chest wall Resp: COMMON NORMALS: normal respiratory effort, No retractions, No use of accessory muscles and clear to auscultation bilaterally AUSCULTATION: clear to auscultation bilaterally Cardio: COMMON NORMALS: no JVD, S1 normal heart sound present, S2 normal heart sound present, No gallops present (Cardio), No clicks present (Cardio), No murmurs present (Cardio) and No rub (Cardio); negative for regular rate (Tachycardic irregularly irregular rhythm) RATE: abnormal rate (Tachycardic irregularly irregular rhythm) HEART SOUNDS: S1 normal heart sound present and S2 normal heart sound present GI: COMMON NORMALS: Normal to inspection, nondistended, normoactive bowel sounds present, Soft to palpation, non-tender, No hepatosplenomegaly present and no masses PALPATION: Yes Soft to palpation and Yes No hepatosplenomegaly present : COMMON NORMALS: Yes no CVA tenderness BLADDER/KIDNEY EXAM: Yes no CVA tenderness Back/Pelvis: COMMON NORMALS: no CVA tenderness Neuro: COMMON NORMALS: patient oriented x3 SENSORIUM/ORIENTATION: Yes alert Course Vital Signs: Vital signs: Vital Signs Pulse Rate 84 08/12/23 00:45 Respiratory Rate 25 H 08/12/23 00:45 Blood Pressure 147/71 08/12/23 00:45 Pulse Oximetry 96 08/12/23 00:45 Oxygen Delivery Me thod Nasal Cannula 08/12/23 00:45 Oxygen Flow Rate 4 08/12/23 00:37 MDM - SOB/Dyspnea Medical Decision Making Patient presents to the ER with A-fib with RVR and shortness of breath. Patient's rate was around 140 beats a minute. She was given 10 mg Cardizem IV push and lab work was obtained. Lab work was essentially benign for the patient. Patient's BNP was elevated about 5000 but she runs very high in this range. Patient's heart rate slowed down to approximately 75 bpm. Patient was feeling much better and breathing much easier. Patient is ready to go home per her. Patient be discharged home with a diagnosis of paroxysmal A-fib with RVR. 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 Differential Diagnosis Unlikely acute exacerbation of chronic obstructive airways disease, congestive heart failure, community acquired pneumonia, asthma with exacerbation or pulmonary embolism Medical Records I reviewed the patient's medical records. Lab Data I reviewed the patient's lab results. 08/12/23 00:19 08/12/23 00:19 Labs/Radiology: Radiology Impressions Chest X-Ray 08/12/23 00:18 IMPRESSION: Stable enlargement of the cardiac silhouette with interval development of mild interstitial pulmonary edema and small bilateral pleural effusions. Laboratory Results WBC 12.22 10^3/uL (3.29-11.43) H 08/12/23 00:19 RBC 4.18 10^6/uL (3.85-5.65) 08/12/23 00:19 Hgb 11.80 g/dL (11.27-16.99) 08/12/23 00:19 Hct 38.8 % (36-47) 08/12/23 00:19 MCV 92.8 fl (85-98) 08/12/23 00:19 MCH 28.2 pg (27-33) 08/12/23 00: MCHC 30.4 g/dL (30-55) 08/12/23 00:19 RDW 15.4 % (12.1-15.1) H 08/12/23 00:19 Plt Count 379 10^3/cmm (157-399) 08/12/23 00:19 MPV 10.4 fL (7.4-10.4) 08/12/23 00:19 Neut % (Auto) 49.4 % 08/12/23 00:19 Lymph % (Auto) 33.9 % 08/12/23 00:19 [place] % (Auto) 9.3 % 08/12/23 00:19 Eos % (Auto) 7.0 % 08/12/23 00:19 Baso % (Auto) 0.2 % 08/12/23 00:19 Neut # (Auto) 6.03 10^3/uL (1.8-7.7) 08/12/23 00:19 Lymph # (Auto) 4.1 10^3/uL (0.8-4.8) 08/12/23 00:19 [place] # (Auto) 1.1 10^3/uL (0.2-0.9) H 08/12/23 00:19 Eos # (Auto) 0.9 10^3/uL (0.0-0.8) H 08/12/23 00:19 Baso # (Auto) 0.0 10^3/uL (0.0-0.1) 08/12/23 00:19 Nucleated RBC % (auto) 0 % 08/12/23 00:19 Nucleated RBCs # 0.0 /100WBC 08/12/23 00:19 Sodium 141 mmol/L (136-145) 08/12/23 00:19 Potassium 4.1 mmol/L (3.5-5.1) 08/12/23 00:19 Chloride 102 mmol/L (98-107) 08/12/23 00:19 Carbon Dioxide 25 mmol/L (22-29) 08/12/23 00:19 Anion Gap 18.1 (5-19) 08/12/23 00:19 BUN 12 mg/dL (8-23) 08/12/23 00:19 Creatinine 1.1 mg/dL (0.5-0.9) H 08/12/23 00:19 GFR Calculation Not Reportable 08/12/23 00:19 Glucose 195 mg/dL (65-115) H 08/12/23 00:19 Calculated Osmolality 297 mOsm/kg (285-295) H 08/12/23 00:19 Calcium 9.0 mg/dL (8.5-10.5) 08/12/23 00:19 Magnesium 2.1 mg/dL (1.7-2.3) 08/12/23 00:19 Total Bilirubin 0.4 mg/dL (0.15-1.2) 08/12/23 00:19 AST 13 U/L (0-32) 08/12/23 00:19 ALT 11 U/L (0-33) 08/12/23 00:19 Alkaline Phosphatase 139 U/L (35-105) H 08/12/23 00:19 NT-Pro-B Natriuret Pep 5533 pg/mL (0-450) H 08/12/23 00:19 Total Protein 7.0 g/dL (6.6-8.7) 08/12/23 00:19 Albumin 3.9 g/dL (3.5-5.2) 08/12/23 00:19 Globulin 3.1 g/dL (1.3-4.6) 08/12/23 00:19 All radiology interpretation(s) finalized by discharge EKG Data EKG 1: I personally reviewed and interpreted this EKG as follows: EKG Interpretation Date: 08/12/23 EKG interpretation time: 00:09 Prior EKG tracings: not available for review Interpretation: EKG showed ventricular rate of 133 beats minute, QRS 140, QTc of 387, atrial fibrillation with RVR, possible right ventricular conduction delay, left bundle branch block Discharge Plan Discharge Patient Disposition: Home Clinical Impression: Paroxysmal atrial fibrillation with rapid ventricular response Condition: Stable Prescriptions: No Action (DME) overnight oximetry See Rx Instructions .Route .MEDSUPPLY Qty: 1 0RF Rx Instructions: As directed budesonide-formoterol [Symbicort] 160-4.5 mcg/actuation HFA aerosol inhaler 2 puff inhalation Q12H Qty: 10.2 2RF Breztri Aerosphere 160-9-4.8 mcg/actuation HFA aerosol inhaler 2 inh inhalation BID Qty: 10.7 6RF doxycycline hyclate 100 mg capsule 100 mg PO BID 10 Days Qty: 20 0RF (DME) FreeStyle [place] 14 Day Sensor Kit See Rx Instructions .Route Qty: 2 11RF Rx Instructions: As directed (DME) FreeStyle [place] 14 Day [place] Misc See Rx Instructions .Route Qty: 1 0RF Rx Instructions: As directed (DME) blood-glucose meter Misc See Rx Instructions .Route Qty: 1 0RF Rx Instructions: As directed with testing strips (DME) pen needle, diabetic [TechLITE Pen Needle] 32 gauge x 5/32 needle See Rx Instructions .Route Qty: 100 0RF Rx Instructions: As directed atorvastatin 80 mg tablet 80 mg PO BEDTIME Qty: 90 3RF (DME) breast prosthesis bilateral and bras x4 See Rx Instructions .Route .MEDSUPPLY Qty: 1 0RF Rx Instructions: As directed potassium chloride 10 mEq capsule, extended release 10 meq PO BID Qty: 270 0RF clopidogrel 75 mg tablet 75 mg PO BEDTIME Qty: 90 3RF (DME) Blood Glucose Test Strip See Rx Instructions .Route Qty: 120 12RF Rx Instructions: free style test strips - test qid carvedilol 6.25 mg tablet 6.25 mg PO BID Qty: 60 0RF (DME) home oxygen 2l/m continuous See Rx Instructions .Route .MEDSUPPLY Qty: 1 0RF Rx Instructions: As directed Lasix 40 mg tablet 40 mg PO DAILY Qty: 90 1RF famotidine 20 mg tablet 20 mg PO BID Qty: 180 1RF (DME) CPAP set to 6-16 with supplies See Rx Instructions .Route .MEDSUPPLY Qty: 1 0RF Rx Instructions: As directed oxycodone 15 mg tablet 15 mg PO Q6H PRN (Reason: pain) 30 Days Qty: 120 0RF fluticasone propionate [Flonase Allergy Relief] 50 mcg/actuation spray,suspension 2 spray intranasal DAILY PRN (Reason: Allergy Symptoms) Rx Instructions: administer into each nostril ondansetron 4 mg tablet,disintegrating 4 mg PO Q8H PRN (Reason: nausea and vomiting) Qty: 15 0RF diphenhydramine HCl [Benadryl] 25 mg Capsule 25 mg PO BEDTIME PRN (Reason: Allergy Symptoms) albuterol sulfate [Ventolin HFA] 90 mcg/actuation HFA aerosol inhaler 2 puff inhalation 6XD PRN (Reason: Shortness Of Breath) loratadine 10 mg tablet 10 mg PO QAM ipratropium-albuterol 0.5 mg-3 mg(2.5 mg base)/3 mL solution for nebulization 3 ml inhalation Q4H PRN (Reason: shortness of breath or wheezing) Qty: 180 0RF Rx Instructions: until breathing returns to target peak flow/parameters glipizide 5 mg tablet 5 mg PO DAILY Lantus Solostar U-100 Insulin 100 unit/mL (3 mL) insulin pen 14 unit SUBCUT DAILY montelukast 10 mg tablet 10 mg PO DAILY lisinopril 2.5 mg tablet 2.5 mg PO DAILY magnesium L-lactate 84 mg tablet extended release 84 mg PO DAILY 30 Days Qty: 30 0RF nitroglycerin 0.4 mg tablet, sublingual 0.4 mg sublingual Q5M PRN (Reason: chest pain) 30 Days Qty: 30 0RF Rx Instructions: do not exceed 3 doses per episode aspirin 81 mg capsule 81 mg PO DAILY 30 Days Qty: 30 0RF Discharge Orders: Discharge ED (Routine); Ordered 08/12/23 Ordered By: Panda Obando Referrals: Patti Irwin DO [Primary Care Provider] - 1 week Patient Instructions: A-fib (Atrial Fibrillation) (ED) Activity Restrictions/Additional Instructions: Please follow-up with your family practice physician and/or 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 Coding Level of Care Code ED Lasting Machine Operator for Betty Vela
[2023-08-12 00:26] VITALS: PULSE 119; RESP 20; O2SAT 95
[2023-08-12 00:27] LABS: Basophils % 0.2 %; Eosinophils # 0.9 10^3/uL (0.0-0.8); Hematocrit 38.8 % (36-47); Lymphocytes # 4.1 10^3/uL (0.8-4.8); Lymphocytes % 33.9 %; Mean Corpuscular HGB Conc 30.4 g/dL (30-55); Mean Corpuscular Hemoglobin 28.2 pg (27-33); Mean Corpuscular Volume 92.8 fl (85-98); Mean Platelet Volume 10.4 fL (7.4-10.4); Monocytes # 1.1 10^3/uL (0.2-0.9); Monocytes % 9.3 %; Neutrophils # 6.03 10^3/uL (1.8-7.7); Neutrophils % 49.4 %; Nucleated Red Blood Cells % 0 %; Platelet Count 379 10^3/cmm (157-399); Red Blood Count 4.18 10^6/uL (3.85-5.65); Red Cell Distribution Width 15.4 % (12.1-15.1); White Blood Count 12.22 10^3/uL (3.29-11.43)
[2023-08-12] MEDS: ipratropium-albuterol 3 mL Neb INHALATION (00:36)
[2023-08-12 00:37] VITALS: PULSE 87; RESP 20; O2SAT 97
[2023-08-12 00:45] VITALS: BP 147/71; PULSE 84; RESP 25; O2SAT 96
[2023-08-12 00:50] LABS: Alanine Aminotransferase 11 U/L (0-33); Albumin Level 3.9 g/dL (3.5-5.2); Alkaline Phosphatase 139 U/L (35-105); Anion Gap 18.1 (5-19); Aspartate Amino Transferase 13 U/L (0-32); Blood Urea Nitrogen 12 mg/dL (8-23); Carbon Dioxide 25 mmol/L (22-29); Chloride 102 mmol/L (98-107); Globulin 3.1 g/dL (1.3-4.6); Glucose 195 mg/dL (65-115); Magnesium 2.1 mg/dL (1.7-2.3); NT Pro B Type Natriuretic Pept 5533 pg/mL (0-450); Osmolality Calculated 297 mOsm/kg (285-295); Potassium 4.1 mmol/L (3.5-5.1); Sodium 141 mmol/L (136-145); Total Bilirubin 0.4 mg/dL (0.15-1.2)
[2023-08-12 01:41] VITALS: BP 132/59; PULSE 78; RESP 18; O2SAT 98
== END 2023-08-12 01:42 | disposition home or self-care (01) ==
PROVIDERS: Emergency Provider Emergency Medicine; PCP Family Medicine
DX: I48.0 Paroxysmal atrial fibrillation (principal); Z79.02 Long term (current) use of antithrombotics/antiplatelets; Z79.4 Long term (current) use of insulin; Z79.84 Long term (current) use of oral hypoglycemic drugs; Z79.82 Long term (current) use of aspirin; F17.210 Nicotine dependence, cigarettes, uncomplicated; Z85.3 Personal history of malignant neoplasm of breast; I13.0 Hypertensive heart and chronic kidney disease with heart failure and stage 1 through stage 4 chronic kidney disease, or unspecified chronic kidney disease; E11.22 Type 2 diabetes mellitus with diabetic chronic kidney disease; N18.9 Chronic kidney disease, unspecified; I50.9 Heart failure, unspecified; J44.9 Chronic obstructive pulmonary disease, unspecified; Z86.73 Personal history of transient ischemic attack (TIA), and cerebral infarction without residual deficits; E78.5 Hyperlipidemia, unspecified; I44.7 Left bundle-branch block, unspecified; I49.3 Ventricular premature depolarization
CPT/HCPCS: 17000; 71045; 80053; 83735; 83880; 85025; 93005; 94640; 96374; 96375; 99214; 99285; J2405; J3490

== ENCOUNTER → 2023-08-13 09:45 | Outpatient (BNVA) | payer MEDICARE, SELFPAY | PROVIDERS: PCP Family Medicine; Visit Provider Nurse Practitioner Family | DX: I48.0 Paroxysmal atrial fibrillation (principal); Z79.01 Long term (current) use of anticoagulants | CPT/HCPCS: 99213 ==

== ENCOUNTER 2023-08-13 22:10 | Emergency (ER) | payer MEDICARE, SELFPAY ==
[2023-08-13 22:14] VITALS: BP 200/102; PULSE 102; RESP 25; TEMP 36.3; O2SAT 96; BMI 32.0
[2023-08-13 22:45] VITALS: BP 170/99; PULSE 98; RESP 28; O2SAT 94
[2023-08-13 23:00] VITALS: BP 150/99; PULSE 98; RESP 29
[2023-08-13] MEDS: guaiFENesin 600 mg Tablet 1200 MG PO (23:10)
[2023-08-13 23:14] VITALS: PULSE 97; RESP 18; O2SAT 96
[2023-08-13] MEDS: ipratropium-albuterol 3 mL Neb INHALATION (23:18)
[2023-08-13 23:20] VITALS: PULSE 102
[2023-08-13 23:30] VITALS: BP 175/82; PULSE 95; RESP 20; O2SAT 97
[2023-08-13] MEDS: methylPREDNISolone sod succ 125 MG in water for injection-sterile 2 ML 24 MG IVP (23:39)
--- NOTE | 2023-08-13 23:42 | ED_ITS ---
HPI - SOB/Dyspnea General: Chief Complaint: Shortness of Breath/Dyspnea Stated Complaint: shortness of breath Time Seen by Provider: 08/13/23 22:54 History of Present Illness: HPI Narrative: Patient presents to the ER with complaints of shortness of breath. Patient was seen yesterday for the exact same thing. 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 Patient states her shortness of breath worsened about 8 PM and she also stated she has a history of COPD and smoked patient smokes approximately 4 cigarettes a day. Patient says she feels a lot better since she has been here. Patient denies any chest pain at this time. Review of Systems General: Reports: 10 or more systems reviewed and unremarkable except in HPI and below PFSH ED PFSH: Medical History AAA (abdominal aortic aneurysm) Status post stent graft repair Acute respiratory failure with hypoxia and hypercarbia Anemia Anxiety Asthma Atopic dermatitis Atrial fib/flutter, transient B12 deficiency Bilateral breast cancer Carotid artery disease CHF (congestive heart failure) CHF (congestive heart failure) Chronic anticoagulation Chronic kidney disease Chronic pain COPD (chronic obstructive pulmonary disease) COPD (chronic obstructive pulmonary disease) CVA (cerebral vascular accident) Descending thoracic aortic 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, 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 Dyslipidemia MYRA (generalized anxiety disorder) History of COVID-12 Aug 2021 History of nonmelanoma skin cancer HTN (hypertension) Hypersomnia Nicotine dependence, cigarettes, with unspecified nicotine-induced disorders Obesity Osteoporosis Paroxysmal atrial fibrillation Pneumonia Renal artery stenosis Respiratory failure Seasonal allergies Surgical History History of aortic aneurysm repair History of stent insertion of renal artery History of total mastectomy of left breast 04/[address] Vo at [place], [place] S/P cholecystectomy S/P hysterectomy S/P mastectomy (08/2009) Right modified radical mastectomy S/P tonsillectomy Family History Other Stroke Social History Smoking and tobacco status: current some day smoker Quit status (tobacco): has quit using tobacco Year quit tobacco: 04/2023 Former quit date comment: smoked for 50+ years Alcohol intake: never Substance/Drug Use: never Physical Exam Const: COMMON NORMALS: no acute distress, average body habitus, patient oriented x3, no limitations, healthy appearing, alert and well nourished HENMT: COMMON NORMALS: normocephalic, atraumatic, hearing grossly normal bilaterally, external ears normal and moist oral mucous membranes HEAD & SCALP: normocephalic and atraumatic EXTERNAL EAR: Yes external ears normal Eye: COMMON NORMALS: Equal, round and reactive pupils present, EOMs intact bilaterally, conjunctivae normal and no scleral icterus CONJUNCTIVA: Yes conjunctivae normal PUPIL: Yes Equal, round and reactive pupils present Neck/C-Spine: COMMON NORMALS: full ROM, no lymphadenopathy, supple, no meningeal signs, no JVD and Thyroid normal THYROID: Thyroid normal Chest: COMMONS NORMALS: normal inspection of the chest and normal palpation of entire chest wall Resp: COMMON NORMALS: normal respiratory effort, No retractions and No use of accessory muscles; negative for clear to auscultation bilaterally (Tight and wheezy throughout) AUSCULTATION: not clear to auscultation bilaterally (Tight and wheezy throughout) Cardio: COMMON NORMALS: no JVD, regular rate, regular rhythm, S1 normal heart sound present, S2 normal heart sound present, No gallops present (Cardio), No clicks present (Cardio), No murmurs present (Cardio) and No rub (Cardio) RATE: regular rate RHYTHM: regular rhythm HEART SOUNDS: S1 normal heart sound present and S2 normal heart sound present GI: COMMON NORMALS: Normal to inspection, nondistended, normoactive bowel sounds present, Soft to palpation and non-tender PALPATION: Yes Soft to palpation Neuro: COMMON NORMALS: patient oriented x3 SENSORIUM/ORIENTATION: Yes alert MENINGEAL SIGNS: Yes no meningeal signs Course Vital Signs: Vital signs: Vital Signs Temperature 97.3 F L 08/13/23 22:14 Pulse Rate 84 08/14/23 01:29 Respiratory Rate 17 08/14/23 01:29 Blood Pressure 105/88 08/14/23 01:29 Pulse Oximetry 99 08/14/23 01:29 Oxygen Delivery Me thod Nasal Cannula 08/14/23 01:00 Oxygen Flow Rate 3 08/14/23 01:00 MDM - SOB/Dyspnea Medical Decision Making Labs imaging in chart from yesterday was reviewed. Patient was at physical exam she received a DuoNeb treatment 125 Solu-Medrol and 40 of IV Lasix after staying here for a while she felt much better and she decided she wanted to go home patient will be discharged home. Differential Diagnosis Likely congestive heart failure; Unlikely acute exacerbation of chronic obstructive airways disease, community acquired pneumonia, asthma with exacerbation or pulmonary embolism Medical Records I reviewed the patient's medical records. Lab Data I reviewed the patient's lab results. No radiology studies performed this visit Discharge Plan Discharge Patient Disposition: Home Clinical Impression: Acute exacerbation of chronic obstructive airways disease Condition: Stable Prescriptions: No Action (DME) overnight oximetry See Rx Instructions .Route .MEDSUPPLY Qty: 1 0RF Rx Instructions: As directed budesonide-formoterol [Symbicort] 160-4.5 mcg/actuation HFA aerosol inhaler 2 puff inhalation Q12H Qty: 10.2 2RF Breztri Aerosphere 160-9-4.8 mcg/actuation HFA aerosol inhaler 2 inh inhalation BID Qty: 10.7 6RF Eliquis 5 mg tablet 5 mg PO Q12H Qty: 180 3RF (DME) FreeStyle [place] 14 Day Sensor Kit See Rx Instructions .Route Qty: 2 11RF Rx Instructions: As directed (DME) FreeStyle Odell 14 Day [place] Misc See Rx Instructions .Route Qty: 1 0RF Rx Instructions: As directed (DME) blood-glucose meter Misc See Rx Instructions .Route Qty: 1 0RF Rx Instructions: As directed with testing strips (DME) pen needle, diabetic [TechLITE Pen Needle] 32 gauge x 5/32 needle See Rx Instructions .Route Qty: 100 0RF Rx Instructions: As directed atorvastatin 80 mg tablet 80 mg PO BEDTIME Qty: 90 3RF (DME) breast prosthesis bilateral and bras x4 See Rx Instructions .Route .MEDSUPPLY Qty: 1 0RF Rx Instructions: As directed potassium chloride 10 mEq capsule, extended release 10 meq PO BID Qty: 270 0RF clopidogrel 75 mg tablet 75 mg PO BEDTIME Qty: 90 3RF (DME) Blood Glucose Test Strip See Rx Instructions .Route Qty: 120 12RF Rx Instructions: free style test strips - test qid carvedilol 6.25 mg tablet 6.25 mg PO BID Qty: 60 0RF (DME) home oxygen 2l/m continuous See Rx Instructions .Route .MEDSUPPLY Qty: 1 0RF Rx Instructions: As directed Lasix 40 mg tablet 40 mg PO DAILY Qty: 90 1RF famotidine 20 mg tablet 20 mg PO BID Qty: 180 1RF (DME) CPAP set to 6-16 with supplies See Rx Instructions .Route .MEDSUPPLY Qty: 1 0RF Rx Instructions: As directed oxycodone 15 mg tablet 15 mg PO Q6H PRN (Reason: pain) 30 Days Qty: 120 0RF fluticasone propionate [Flonase Allergy Relief] 50 mcg/actuation spray,suspension 2 spray intranasal DAILY PRN (Reason: Allergy Symptoms) Rx Instructions: administer into each nostril ondansetron 4 mg tablet,disintegrating 4 mg PO Q8H PRN (Reason: nausea and vomiting) Qty: 15 0RF diphenhydramine HCl [Benadryl] 25 mg Capsule 25 mg PO BEDTIME PRN (Reason: Allergy Symptoms) albuterol sulfate [Ventolin HFA] 90 mcg/actuation HFA aerosol inhaler 2 puff inhalation 6XD PRN (Reason: Shortness Of Breath) loratadine 10 mg tablet 10 mg PO QAM ipratropium-albuterol 0.5 mg-3 mg(2.5 mg base)/3 mL solution for nebulization 3 ml inhalation Q4H PRN (Reason: shortness of breath or wheezing) Qty: 180 0RF Rx Instructions: until breathing returns to target peak flow/parameters glipizide 5 mg tablet 5 mg PO DAILY Lantus Solostar U-100 Insulin 100 unit/mL (3 mL) insulin pen 14 unit SUBCUT DAILY montelukast 10 mg tablet 10 mg PO DAILY lisinopril 2.5 mg tablet 2.5 mg PO DAILY magnesium L-lactate 84 mg tablet extended release 84 mg PO DAILY 30 Days Qty: 30 0RF nitroglycerin 0.4 mg tablet, sublingual 0.4 mg sublingual Q5M PRN (Reason: chest pain) 30 Days Qty: 30 0RF Rx Instructions: do not exceed 3 doses per episode Discharge Orders: Discharge ED (Routine); Ordered 09/21/23 Ordered By: Panda Obando Referrals: Patti Irwin DO [Primary Care Provider] - 1 week Patient Instructions: COPD Activity Restrictions/Additional Instructions: Please follow-up with your family practice physician in the next 7 to 10 days or sooner as needed for further evaluation and treatment. Coding Level of Care Code ED Video Machines Mechanic for Betty Vela
[2023-08-13] MEDS: FUROsemide 10 mg/mL SDV 4mL 40 MG IVP (23:47)
[2023-08-14] VITALS: BP 172/98; PULSE 95; RESP 28; O2SAT 99
[2023-08-14 00:30] VITALS: BP 162/84; PULSE 93; RESP 29; O2SAT 99
[2023-08-14 01:00] VITALS: BP 172/91; PULSE 86; RESP 30; O2SAT 100
[2023-08-14 01:29] VITALS: BP 105/88; PULSE 84; RESP 17; O2SAT 99
== END 2023-08-14 01:29 | disposition home or self-care (01) ==
PROVIDERS: Emergency Provider Emergency Medicine; PCP Family Medicine
DX: J44.1 Chronic obstructive pulmonary disease with (acute) exacerbation (principal); Z79.01 Long term (current) use of anticoagulants; Z79.02 Long term (current) use of antithrombotics/antiplatelets; Z79.4 Long term (current) use of insulin; Z79.84 Long term (current) use of oral hypoglycemic drugs; F17.210 Nicotine dependence, cigarettes, uncomplicated; Z85.3 Personal history of malignant neoplasm of breast; I13.0 Hypertensive heart and chronic kidney disease with heart failure and stage 1 through stage 4 chronic kidney disease, or unspecified chronic kidney disease; E11.22 Type 2 diabetes mellitus with diabetic chronic kidney disease; N18.9 Chronic kidney disease, unspecified; I50.9 Heart failure, unspecified; E78.5 Hyperlipidemia, unspecified
CPT/HCPCS: 94640; 96374; 96375; 99284; J1940; J2930

== ENCOUNTER 2023-09-10 13:46 | Oncology outpatient (recurring) (ONCR) | payer MEDICARE, SELFPAY ==
[2023-09-10 13:58] VITALS: BP 104/52; PULSE 70; RESP 16; TEMP 37.2; O2SAT 92
[2023-09-10 14:27] LABS: Basophils % 0.3 %; Eosinophils # 0.4 10^3/uL (0.0-0.8); Eosinophils % 5.5 %; Hematocrit 32.9 % (36-47); Lymphocytes # 1.5 10^3/uL (0.8-4.8); Lymphocytes % 20.3 %; Mean Corpuscular HGB Conc 31.3 g/dL (30-55); Mean Corpuscular Hemoglobin 28.4 pg (27-33); Mean Corpuscular Volume 90.6 fl (85-98); Mean Platelet Volume 9.4 fL (7.4-10.4); Monocytes # 0.6 10^3/uL (0.2-0.9); Monocytes % 8.3 %; Neutrophils # 4.96 10^3/uL (1.8-7.7); Neutrophils % 65.3 %; Nucleated Red Blood Cells % 0 %; Platelet Count 432 10^3/cmm (157-399); Red Blood Count 3.63 10^6/uL (3.85-5.65); Red Cell Distribution Width 15.5 % (12.1-15.1); White Blood Count 7.59 10^3/uL (3.29-11.43)
[2023-09-10 14:45] LABS: Alanine Aminotransferase 9 U/L (0-33); Albumin Level 3.4 g/dL (3.5-5.2); Alkaline Phosphatase 144 U/L (35-105); Anion Gap 12.9 (5-19); Aspartate Amino Transferase 11 U/L (0-32); Blood Urea Nitrogen 13 mg/dL (8-23); Calcium 8.5 mg/dL (8.5-10.5); Carbon Dioxide 32 mmol/L (22-29); Chloride 97 mmol/L (98-107); Glucose 78 mg/dL (65-115); Iron 32 ug/dL (37-145); Osmolality Calculated 285 mOsm/kg (285-295); Percent Saturation 14.4 % (20-50); Potassium 3.9 mmol/L (3.5-5.1); Sodium 138 mmol/L (136-145); Total Bilirubin 0.4 mg/dL (0.15-1.2); Total Iron Binding Capacity 222 mcg/dl; Total Protein 6.4 g/dL (6.6-8.7); Unsaturated Iron Binding 190 ug/dL (112-347)
[2023-09-10 17:49] LABS: Ferritin 245 ng/mL (15-150)
== END 2023-09-23 23:59 | disposition home or self-care (01) ==
PROVIDERS: PCP Family Medicine; Visit Provider Internal Medicine Medical Oncology
DX: D50.8 Other iron deficiency anemias (principal); C50.812 Malignant neoplasm of overlapping sites of left female breast; C50.919 Malignant neoplasm of unspecified site of unspecified female breast; C50.411 Malignant neoplasm of upper-outer quadrant of right female breast; Z79.899 Other long term (current) drug therapy; K31.84 Gastroparesis; G89.29 Other chronic pain
CPT/HCPCS: 36415; 80053; 82728; 83540; 83550; 85025; 99214

== ENCOUNTER 2023-09-20 23:46 | Observation (INO) | payer MEDICARE, SELFPAY ==
[2023-09-20 23:47] VITALS: BP 188/108; PULSE 121; RESP 22; TEMP 36.7; O2SAT 91; BMI 31.8
--- NOTE | 2023-09-20 23:54 | ECG_ITS ---
[facility] Test Date: 2023-09-21 Pat Name: Paloma Slater Department: Room: 107 Gender: Female Medical Technologist Chief: : 1940 Requested By: John Rodarte Order Number: [id number] Latisha MD: Jaxon Fernandes M.D. Measurements Intervals [place] Rate: 106 P: -55 NE: 113 QRS: -38 QRSD: 146 T: 79 QT: 379 QTc: 505 Interpretive Statements SINUS TACHYCARDIA WITH SHORT NE INTERVAL LEFT AXIS DEVIATION [QRS AXIS < -30] LEFT BUNDLE BRANCH BLOCK [120+ ms QRS DURATION, 80+ ms Q/S IN V1/V2, 85+ ms R IN I/aVL/V5/V6] Compared to ECG 08/12/2023 00:09:22 Short NE interval now present Left-axis deviation now present Atrial fibrillation no longer present Aberrant conduction of supraventricular beat(s) no longer present Ventricular premature complex(es) no longer present Electronically Signed On 09-21-2023 10:16:17 CDT by Jaxon Fernandes M.D. [id number]
--- NOTE | 2023-09-20 23:55 | XRR_ITS ---
PROCEDURE INFORMATION: Exam: XR Chest Exam date and time: 09/20/2023 11:58 PM Age: 82 years old Clinical indication: Shortness of breath; Prior surgery; Surgery date: 6+ months; Surgery type: Mastectomy. Gb. Aortic graft. Patient HX: C/O SOB. History of copd and chf. TECHNIQUE: Imaging protocol: Radiologic exam of the chest. Views: 1 view. COMPARISON: CR (CHEST, ) 08/12/2023 12:25 AM FINDINGS: Lungs: See Heart/Mediastinum finding. Pleural spaces: Trace bilateral pleural effusions. Heart/Mediastinum: Cardiomegaly and minimal interstitial edema. Vasculature: Upper abdominal aortic stent somewhat visualized. Bones/joints: Unremarkable. XR/XR chest 1V portable [id number] IMPRESSION: 1. Trace bilateral pleural effusions. 2. Cardiomegaly and minimal interstitial edema. 3. Upper abdominal aortic stent somewhat visualized.
[2023-09-21] VITALS (13 sets, daily range): BP systolic 114–163; BP diastolic 60–79; PULSE 78–110; RESP 17–24; TEMP 36.7; O2SAT 96–99
[2023-09-21] MEDS: methylPREDNISolone sod succ 125 MG in water for injection-sterile 2 ML 24 MG IVP (00:03)
[2023-09-21] MEDS: ipratropium-albuterol 3 mL Neb INHALATION (00:05)
[2023-09-21 00:17] LABS: ABG PCO2 57.4 mmHg (35-45); Base Excess ABG 1.1 mmol/L (-2.0-2.0); Blood Gas Allen Test Pos; Blood Gas Operator Identificat HARKR; Blood Gas Sample Site Radial, right; Blood Gas Sample Type Arterial; Carboxyhemoglobin 1.9 %THgb (0.4-20.1); HCO3 ABG 28.4 mmol/L (22-26); HGB O2 Sat 96.3 % (95-100); Methemoglobin < 0.0 % (0.4-1.5); Oxygen Device NC; PO2 ABG 95.3 mmHg (80.0-100.0); Total Hemoglobin 11.4 g/dL (12-16)
[2023-09-21 00:39] LABS: Basophils % 0.3 %; Eosinophils # 0.6 10^3/uL (0.0-0.8); Eosinophils % 6.1 %; Hematocrit 36.9 % (36-47); Lymphocytes # 2.8 10^3/uL (0.8-4.8); Lymphocytes % 29.5 %; Mean Corpuscular HGB Conc 30.6 g/dL (30-55); Mean Corpuscular Hemoglobin 28.5 pg (27-33); Mean Corpuscular Volume 92.9 fl (85-98); Mean Platelet Volume 10.2 fL (7.4-10.4); Monocytes # 0.6 10^3/uL (0.2-0.9); Monocytes % 6.4 %; Neutrophils % 57.5 %; Nucleated Red Blood Cells % 0 %; Platelet Count 384 10^3/cmm (157-399); Red Blood Count 3.97 10^6/uL (3.85-5.65); White Blood Count 9.39 10^3/uL (3.29-11.43)
[2023-09-21 00:41] LABS: Lactic Sepsis W/Reflex 2.1 mmol/L (0.5-2.2)
[2023-09-21 00:51] LABS: Alanine Aminotransferase 8 U/L (0-33); Alkaline Phosphatase 157 U/L (35-105); Anion Gap 13.1 (5-19); Aspartate Amino Transferase 10 U/L (0-32); Blood Urea Nitrogen 15 mg/dL (8-23); Calcium 9.1 mg/dL (8.5-10.5); Carbon Dioxide 29 mmol/L (22-29); Chloride 99 mmol/L (98-107); Globulin 2.9 g/dL (1.3-4.6); Glucose 218 mg/dL (65-115); Magnesium 2.2 mg/dL (1.7-2.3); NT Pro B Type Natriuretic Pept 4873 pg/mL (0-450); Osmolality Calculated 291 mOsm/kg (285-295); Potassium 4.1 mmol/L (3.5-5.1); Sodium 137 mmol/L (136-145); Total Bilirubin 0.4 mg/dL (0.15-1.2); Total Protein 6.9 g/dL (6.6-8.7)
[2023-09-21] MEDS: FUROsemide 10 mg/mL SDV 10mL 80 MG IVP (00:54)
[2023-09-21] MEDS: LORazepam 2 mg/mL INJ 1 mL 0.5 MG IVP (00:55)
--- NOTE | 2023-09-21 00:59 | PC.NURSE ---
Respiratory in room setting up bipap. Pt given small drink of water and ivp ativan prior.
--- NOTE | 2023-09-21 01:21 | ED_ITS ---
HPI - SOB/Dyspnea General: Chief Complaint: Shortness of Breath/Dyspnea Stated Complaint: SOB Time Seen by Provider: 09/20/23 23:51 History of Present Illness: HPI Narrative: 82-year-old lady with a history of COPD and heart failure. She is on 4 L nasal cannula at home. She presents with shortness of breath. She has had a cough with some sputum production, white to green. No fever. No increased swelling in her legs. She remains short of breath despite breathing treatments at home. She continues to smoke. Associated symptoms: Reports nausea; Deny abdominal pain, chest pain, fever(s), palpitations or vomiting Review of Systems Const: Denies: fever(s) or chills ENMT: Denies: throat pain Card: Denies: chest pain or palpitations Resp: Reports: dyspnea, productive cough and wheezing GI: Reports: nausea; Denies: abdominal pain or vomiting Skin/Breast: Denies: rash PFSH ED PFSH: Medical History AAA (abdominal aortic aneurysm) Status post stent graft repair Acute respiratory failure with hypoxia and hypercarbia Anemia Anxiety Asthma Atopic dermatitis Atrial fib/flutter, transient B12 deficiency Bilateral breast cancer Carotid artery disease CHF (congestive heart failure) Chronic anticoagulation Chronic kidney disease Chronic pain COPD (chronic obstructive pulmonary disease) CVA (cerebral vascular accident) Descending thoracic aortic 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, 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 Dyslipidemia MYRA (generalized anxiety disorder) History of COVID-19 Jul 2021 History of nonmelanoma skin cancer HTN (hypertension) Hypersomnia Nicotine dependence, cigarettes, with unspecified nicotine-induced disorders Obesity Osteoporosis Paroxysmal atrial fibrillation Pneumonia Renal artery stenosis Respiratory failure Seasonal allergies Surgical History History of aortic aneurysm repair History of stent insertion of renal artery History of total mastectomy of left breast 04/[address] Vo at [place], [place] S/P cholecystectomy S/P hysterectomy S/P mastectomy (08/2009) Right modified radical mastectomy S/P tonsillectomy Family History Other Stroke Social History Smoking and tobacco/nicotine status: current some day tobacco/nicotine user Quit status (tobacco/nicotine): has quit using Year quit tobacco: 04/2023 Former quit date comment: smoked for 50+ years Alcohol intake: never Substance/Drug Use: never Physical Exam Const: COMMON NORMALS: no acute distress GENERAL APPEARANCE: in distress, ill appearing and frail appearing HENMT: COMMON NORMALS: normocephalic, atraumatic and Normal external nose present HEAD & SCALP: normocephalic and atraumatic FACE & SINUS: normal facial exam NOSE: Normal external nose present Eye: COMMON NORMALS: Equal, round and reactive pupils present and EOMs intact bilaterally PUPIL: Yes Equal, round and reactive pupils present Neck/C-Spine: GENERAL: Yes trachea midline Chest: CHEST: Yes Symmetrical chest wall rise Resp: COMMON NORMALS: No retractions and No use of accessory muscles EFFORT & INSPECTION: No able to speak in complete sentences, Yes symmetric chest movement, Yes tachypneic and Yes labored AUSCULTATION: wheezes and diminished lung sounds Cardio: COMMON NORMALS: regular rhythm RATE: tachycardic RHYTHM: regular rhythm GI: COMMON NORMALS: Normal to inspection, nondistended, normoactive bowel sounds present Extremity: COMMON NORMALS: no pedal edema Neuro: MOHSEN COMA SCALE: document GCS findings [place] coma scale eye opening: Spontaneous [place] coma scale verbal response: Orientated [place] coma scale motor response: Obey commands Moh[place] coma scale total score: 15 SENSORY EXAM: Yes extremities (intact) Psych: COMMON NORMALS: speech normal SPEECH: Yes normal speech Skin: COMMON NORMALS: no rashes or lesions noted GENERAL SKIN EXAM: no rashes or lesions noted Course Vital Signs: Vital signs: Vital Signs Temperature 98.0 F 09/20/23 23:47 Pulse Rate 78 09/21/23 01:00 Respiratory Rate 18 09/21/23 01:00 Blood Pressure 163/71 09/21/23 01:00 Pulse Oximetry 97 09/21/23 01:00 Oxygen Delivery Me thod Nasal Cannula 09/21/23 00:05 Oxygen Flow Rate 5 09/21/23 00:05 Fraction of Inspir ed Oxygen 35 09/21/23 00:55 MDM - SOB/Dyspnea Medical Decision Making 82-year-old female with a history of CHF and COPD. Labored breathing on arrival. She is bumped from 4 L to 5, but blood gas shows respiratory acidosis. With labored breathing, patient placed on BiPAP. She appears clinically improved. Heart rate is down to the 70s, blood pressure 104/51, saturations 97% and respirations down to 16. CBC is normal. Creatinine is 1.1. Chest x-ray shows bilateral pleural effusions with some interstitial edema consistent with her BNP of 4900. Lactic acid is 2. No infiltrate. She is given DuoNeb treatments, Solu-Medrol, and Lasix. She will be admitted. Hospitalist will see the patient. Lab Data 09/21/23 00:00 09/21/23 00:00 Labs/Radiology: Radiology Impressions Chest X-Ray 09/20/23 23:55 IMPRESSION: 1. Trace bilateral pleural effusions. 2. Cardiomegaly and minimal interstitial edema. 3. Upper abdominal aortic stent somewhat visualized. Laboratory Results WBC 9.39 10^3/uL (3.29-11.43) 09/21/23 00:00 RBC 3.97 10^6/uL (3.85-5.65) 09/21/23 00:00 Hgb 11.30 g/dL (11.27-16.99) 09/21/23 00:00 Hct 36.9 % (36-47) 09/21/23 00:00 MCV 92.9 fl (85-98) 09/21/23 00:00 MCH 28.5 pg (27-33) 09/21/23 00:00 MCHC 30.6 g/dL (30-55) 09/21/23 00:00 RDW 15.0 % (12.1-15.1) 09/21/23 00:00 Plt Count 384 10^3/cmm (157-399) 09/21/23 00:00 MPV 10.2 fL (7.4-10.4) 09/21/23 00:00 Neut % (Auto) 57.5 % 09/21/23 00:00 Lymph % (Auto) 29.5 % 09/21/23 00:00 [place] % (Auto) 6.4 % 09/21/23 00:00 Eos % (Auto) 6.1 % 09/21/23 00:00 Baso % (Auto) 0.3 % 09/21/23 00:00 Neut # (Auto) 5.40 10^3/uL (1.8-7.7) 09/21/23 00:00 Lymph # (Auto) 2.8 10^3/uL (0.8-4.8) 09/21/23 00:00 [place] # (Auto) 0.6 10^3/uL (0.2-0.9) 09/21/23 00:00 Eos # (Auto) 0.6 10^3/uL (0.0-0.8) 09/21/23 00:00 Baso # (Auto) 0.0 10^3/uL (0.0-0.1) 09/21/23 00:00 Nucleated RBC % (auto) 0 % 09/21/23 00:00 Nucleated RBCs # 0.0 /100WBC 09/21/23 00:00 Specimen Type Arterial 09/21/23 00:04 Sample Site Radial, right 09/21/23 00:04 ABG pH 7.30 (7.35-7.45) L 09/21/23 00:04 ABG pCO2 57.4 mmHg (35-45) H 09/21/23 00:04 ABG pO2 95.3 mmHg (80.0-100.0) 09/21/23 00:04 ABG HCO3 28.4 mmol/L (22-26) H 09/21/23 00:04 ABG Base Excess 1.1 mmol/L (-2.0-2.0) 09/21/23 00:04 Carlos Alberto Test Pos 09/21/23 00:04 Hematocrit 35.0 % (37-47) L 09/21/23 00:04 Hgb O2 Saturation 96.3 % (95-100) 09/21/23 00:04 Carboxyhemoglobin 1.9 %THgb (0.4-20.1) 09/21/23 00:04 Methemoglobin < 0.0 % (0.4-1.5) L 09/21/23 00:04 Total Hemoglobin 11.4 g/dL (12-16) L 09/21/23 00:04 O2 Delivery Device Nc 09/21/23 00:04 O2 Liters/Min 5.0 % 09/21/23 00:04 [facility] Supervisor ID Harkr 09/21/23 00:04 Sodium 137 mmol/L (136-145) 09/21/23 00:00 Potassium 4.1 mmol/L (3.5-5.1) 09/21/23 00:00 Chloride 99 mmol/L (98-107) 09/21/23 00:00 Carbon Dioxide 29 mmol/L (22-29) 09/21/23 00:00 Anion Gap 13.1 (5-19) 09/21/23 00:00 BUN 15 mg/dL (8-23) 09/21/23 00:00 Creatinine 1.1 mg/dL (0.5-0.9) H 09/21/23 00:00 GFR Calculation Not Reportable 09/21/23 00:00 Glucose 218 mg/dL (65-115) H 09/21/23 00:00 Calculated Osmolality 291 mOsm/kg (285-295) 09/21/23 00:00 Lactic Acid 2.1 mmol/L (0.5-2.2) 09/21/23 00:00 Calcium 9.1 mg/dL (8.5-10.5) 09/21/23 00:00 Magnesium 2.2 mg/dL (1.7-2.3) 09/21/23 00:00 Total Bilirubin 0.4 mg/dL (0.15-1.2) 09/21/23 00:00 AST 10 U/L (0-32) 09/21/23 00:00 ALT 8 U/L (0-33) 09/21/23 00:00 Alkaline Phosphatase 157 U/L (35-105) H 09/21/23 00:00 NT-Pro-B Natriuret Pep 4873 pg/mL (0-450) H 09/21/23 00:00 Total Protein 6.9 g/dL (6.6-8.7) 09/21/23 00:00 Albumin 4.0 g/dL (3.5-5.2) 09/21/23 00:00 Globulin 2.9 g/dL (1.3-4.6) 09/21/23 00:00 All radiology interpretation(s) finalized by discharge Critical Care Time Critical Care Time: Critical Care Time: Yes Total Critical Care Time: 35 Attestation: This case had a high probability of a clinically significant, sudden, or life threatening deterioration of this patient's condition which required my full and direct attention, intervention and personal management. Time is independent of any procedures performed. Discharge Plan Discharge Patient Disposition: Admitted As Inpatient Clinical Impression: Respiratory failure with hypoxia and hypercapnia, Acute exacerbation of chronic obstructive pulmonary disease, Acute exacerbation of CHF (congestive heart failure) Condition: Fair Prescriptions: No Action (DME) overnight oximetry See Rx Instructions .Route .MEDSUPPLY Qty: 1 0RF Rx Instructions: As directed budesonide-formoterol [Symbicort] 160-4.5 mcg/actuation HFA aerosol inhaler 2 puff inhalation Q12H Qty: 10.2 2RF Breztri Aerosphere 160-9-4.8 mcg/actuation HFA aerosol inhaler 2 inh inhalation BID Qty: 10.7 6RF famotidine 20 mg tablet 20 mg PO BID Qty: 180 1RF Eliquis 5 mg tablet 5 mg PO Q12H Qty: 180 3RF (DME) FreeStyle [place] 14 Day Sensor Kit See Rx Instructions .Route Qty: 2 11RF Rx Instructions: As directed (DME) FreeStyle Odell 14 Day [place] Misc See Rx Instructions .Route Qty: 1 0RF Rx Instructions: As directed (DME) blood-glucose meter Misc See Rx Instructions .Route Qty: 1 0RF Rx Instructions: As directed with testing strips (DME) pen needle, diabetic [TechLITE Pen Needle] 32 gauge x 5/32 needle See Rx Instructions .Route Qty: 100 0RF Rx Instructions: As directed atorvastatin 80 mg tablet 80 mg PO BEDTIME Qty: 90 3RF (DME) breast prosthesis bilateral and bras x4 See Rx Instructions .Route .MEDSUPPLY Qty: 1 0RF Rx Instructions: As directed potassium chloride 10 mEq capsule, extended release 10 meq PO BID Qty: 270 0RF clopidogrel 75 mg tablet 75 mg PO BEDTIME Qty: 90 3RF (DME) Blood Glucose Test Strip See Rx Instructions .Route Qty: 120 12RF Rx Instructions: free style test strips - test qid (DME) home oxygen 2l/m continuous See Rx Instructions .Route .MEDSUPPLY Qty: 1 0RF Rx Instructions: As directed Lasix 40 mg tablet 40 mg PO DAILY Qty: 90 1RF carvedilol 6.25 mg tablet 6.25 mg PO BID Qty: 60 0RF oxycodone 15 mg tablet 15 mg PO Q6H PRN (Reason: pain) 30 Days Qty: 120 0RF (DME) CPAP set to 6-16 with supplies See Rx Instructions .Route .MEDSUPPLY Qty: 1 0RF Rx Instructions: As directed fluticasone propionate [Flonase Allergy Relief] 50 mcg/actuation spray,suspension 2 spray intranasal DAILY PRN (Reason: Allergy Symptoms) Rx Instructions: administer into each nostril ondansetron 4 mg tablet,disintegrating 4 mg PO Q8H PRN (Reason: nausea and vomiting) Qty: 15 0RF diphenhydramine HCl [Benadryl] 25 mg Capsule 25 mg PO BEDTIME PRN (Reason: Allergy Symptoms) albuterol sulfate [Ventolin HFA] 90 mcg/actuation HFA aerosol inhaler 2 puff inhalation 6XD PRN (Reason: Shortness Of Breath) loratadine 10 mg tablet 10 mg PO QAM ipratropium-albuterol 0.5 mg-3 mg(2.5 mg base)/3 mL solution for nebulization 3 ml inhalation Q4H PRN (Reason: shortness of breath or wheezing) Qty: 180 0RF Rx Instructions: until breathing returns to target peak flow/parameters glipizide 5 mg tablet 5 mg PO DAILY Lantus Solostar U-100 Insulin 100 unit/mL (3 mL) insulin pen 14 unit SUBCUT DAILY montelukast 10 mg tablet 10 mg PO DAILY lisinopril 2.5 mg tablet 2.5 mg PO DAILY Referrals: Patti Irwin DO [Primary Care Provider] - Coding Level of Care Code ED School Administrator for [facility] Vela
[2023-09-21 01:59] LABS: Reflex Lactate Order REFLEX LACTIC ORDERD
--- NOTE | 2023-09-21 02:40 | P.HP_ITS ---
Providers/Chief Complaint Admitting Physician: Jovanni Rose Primary Care Provider: Patti Irwin DO Chief Complaint: SOB History of Present Illness 82-year-old lady with history of COPD, asthma, CHF, chronically on 4 L of oxygen by nasal cannula, states that recently had a sleep study as well and found to have sleep apnea and is in the process of obtaining NIPPV, atrial fibrillation anticoagulation, DM 2, HTN, CKD, obesity, anemia, history of bilateral breast cancer, multiple other medical problems presented to the due to worsening shortness of breath, cough productive of white to green sputum, lower extremity swelling. Her oxygen had to be increased to 5 L. On ABG with acute respiratory acidosis, 7.3/57.4. NT-proBNP 4873. Afebrile. No leukocytosis. Chest x-ray with trace bilateral pleural effusions, cardiomegaly and minimal interstitial edema. Abdominal aortic stent partially visualized. She was started on BiPAP support in ER, received breathing treatment, Solu- Medrol, Lasix dose of, Ativan. States she feels she is already improving and wants to go home tomorrow. Review of Systems Const: Denies: fever(s), chills, body aches or malaise ENMT: Denies: throat pain Card: Reports: edema; Denies: chest pain or pre-syncope Resp: Reports: dyspnea, productive cough and change in phlegm color; Denies: hemoptysis GI: Denies: abdominal pain, nausea, vomiting, diarrhea, constipation, hematochezia or melena : Denies: flank pain, urinary frequency or hematuria Musc: Denies: back pain, joint swelling or joint redness Skin/Breast: Denies: rash or new lesions Neuro: Denies: headache(s), numbness in extremities, weakness in extremities, dizziness, confusion or seizure-like activity Medications/Allergies Home Medications Medication Instructions Recorded Confirmed Last Taken Type flash glucose scanning reader #1 ea 03/04/22 09/10/23 Unknown Rx (FreeStyle [place] 14 Day [place]) flash glucose sensor (FreeStyle #2 ea 03/04/22 09/10/23 Unknown Rx Odell 14 Day Sensor kit) blood-glucose meter #1 ea 03/06/22 09/10/23 Unknown Rx pen needle, diabetic 32 gauge x #100 ea 04/12/22 09/10/23 Unknown Rx (TechLITE Pen Needle) fluticasone propionate 50 2 spray intranasal DAILY PRN 06/27/22 09/10/23 02/15/23 History mcg/actuation nasal Allergy Symptoms spray,suspension (Flonase Allergy Relief) ondansetron 4 mg disintegrating 4 mg PO Q8H PRN nausea and 06/27/22 09/10/23 Unknown Rx tablet vomiting #15 tabs overnight oximetry #1 ea 12/17/22 09/10/23 Unknown Rx atorvastatin 80 mg tablet 80 mg PO BEDTIME #90 tabs 12/26/22 09/10/23 07/19/23 Rx breast prosthesis bilateral and #1 ea 02/05/23 09/10/23 Unknown Rx bras x4 budesonide-formoterol HFA 160 2 puff inhalation Q12H #10.2 grams 02/17/23 09/10/23 Unknown Rx mcg-4.5 mcg/actuation aerosol inhaler (Symbicort) albuterol sulfate 90 mcg/actuation 2 puff inhalation 6XD PRN 02/19/23 09/10/23 Unknown History aerosol inhaler (Ventolin HFA) Shortness Of Breath diphenhydramine HCl 25 mg capsule 25 mg PO BEDTIME PRN Allergy 02/19/23 09/10/23 Unknown History (Benadryl) Symptoms loratadine 10 mg tablet 10 mg PO QAM 02/19/23 09/10/23 07/20/23 History ipratropium 0.5 mg-albuterol 3 mg 3 ml inhalation Q4H PRN shortness 02/21/23 09/10/23 Unknown Rx (2.5 mg base)/3 mL nebulization of breath or wheezing #180 mL soln potassium chloride 10 mEq 10 meq PO BID #270 caps 03/03/23 09/10/23 07/20/23 Rx capsule,extended release budesonide 160 mcg-glycopyr 9 2 inh inhalation BID #10.7 grams 03/04/23 09/10/23 Unknown Rx mcg-formot 4.8 mcg/actuation HFA inhaler (Breztri Aerosphere) clopidogrel 75 mg tablet 75 mg PO BEDTIME #90 tabs 03/13/23 09/10/23 07/19/23 Rx blood sugar diagnostic (Blood #120 ea 05/12/23 09/10/23 Unknown Rx Glucose Test strips) glipizide 5 mg tablet 5 mg PO DAILY 05/30/23 09/10/23 07/20/23 History home oxygen 2l/m continuous #1 ea 06/04/23 09/10/23 Unknown Rx furosemide 40 mg tablet (Lasix) 40 mg PO DAILY #90 tabs 06/19/23 09/10/23 07/20/23 Rx insulin glargine 100 unit/mL (3 14 unit SUBCUT DAILY 07/11/23 09/10/23 07/20/23 History mL) subcutaneous pen (Lantus Solostar U-100 Insulin) lisinopril 2.5 mg tablet 2.5 mg PO DAILY 07/20/23 09/10/23 07/20/23 History montelukast 10 mg tablet 10 mg PO DAILY 07/20/23 09/10/23 07/20/23 History apixaban 5 mg tablet (Eliquis) 5 mg PO Q12H #180 tabs 08/13/23 09/10/23 Unknown Rx carvedilol 6.25 mg tablet 6.25 mg PO BID #60 tabs 08/20/23 09/10/23 Unknown Rx oxycodone 15 mg tablet 15 mg PO Q6H PRN pain 30 days #120 09/08/23 09/10/23 Unknown Rx tabs famotidine 20 mg tablet 20 mg PO BID #180 tabs 09/10/23 09/10/23 Unknown Rx CPAP set to 6-16 with supplies #1 ea 09/15/23 Unknown Rx Allergies Allergy/AdvReac Type Severity Reaction Status Date / Time adhesive tape Allergy Unknown Unknown Verified 09/21/23 00:13 bacitracin Allergy Unknown Unknown Verified 09/21/23 00:13 [From Neosporin ([id number])] codeine Allergy Unknown Unknown Verified 09/21/23 00:13 doxycycline Allergy Unknown Unknown Verified 09/21/23 00:13 neomycin Allergy Unknown Unknown Verified 09/21/23 00:13 [From Neosporin ([id number])] penicillamine Allergy Unknown Unknown Verified 09/21/23 00:13 Penicillins Allergy Unknown Unknown Verified 09/21/23 00:13 polymyxin B Allergy Unknown Unknown Verified 09/21/23 00:13 [From Neosporin ([id number])] prochlorperazine Allergy Unknown Unknown Verified 09/21/23 00:13 [From Compazine] Sulfa (Sulfonamide Allergy Unknown Unknown Verified 09/21/23 00:13 Antibiotics) PFSH Acute PFSH: Medical History AAA (abdominal aortic aneurysm) Status post stent graft repair Acute respiratory failure with hypoxia and hypercarbia Anemia Anxiety Asthma Atopic dermatitis Atrial fib/flutter, transient B12 deficiency Bilateral breast cancer Carotid artery disease CHF (congestive heart failure) Chronic anticoagulation Chronic kidney disease Chronic pain COPD (chronic obstructive pulmonary disease) CVA (cerebral vascular accident) Descending thoracic aortic 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, 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 Dyslipidemia MYRA (generalized anxiety disorder) History of COVID-19 Jul 2021 History of nonmelanoma skin cancer HTN (hypertension) Hypersomnia Nicotine dependence, cigarettes, with unspecified nicotine-induced disorders Obesity Osteoporosis Paroxysmal atrial fibrillation Pneumonia Renal artery stenosis Respiratory failure Seasonal allergies Surgical History History of aortic aneurysm repair History of stent insertion of renal artery History of total mastectomy of left breast 04/[address] Vo at [place], [place] S/P cholecystectomy S/P hysterectomy S/P mastectomy (08/2009) Right modified radical mastectomy S/P tonsillectomy Family History Other Stroke Social History Smoking and tobacco/nicotine status: current some day tobacco/nicotine user Quit status (tobacco/nicotine): has quit using Year quit tobacco: 04/2023 Former quit date comment: smoked for 50+ years Alcohol intake: never Substance/Drug Use: never Vitals/I&O/Wt Last Vital Signs Temp 98.0 F 09/20/23 23:47 Pulse 79 09/21/23 01:55 Resp 24 H 09/21/23 01:55 BP 148/79 09/21/23 01:55 Pulse Ox 99 09/21/23 01:55 O2 Del Method Nasal Cannula 09/21/23 00:05 O2 Flow Rate 5 09/21/23 00:05 FiO2 35 09/21/23 00:55 09/20/23 09/20/23 09/21/23 14:59 22:59 06:59 Intake Total 2 / 2 Output Total 200 / 200 Balance -198 / -198 Weight last 48 hrs Weight 78.925 kg Physical Exam Const: COMMON NORMALS: patient oriented x3 and alert GENERAL APPEARANCE: cooperative ORIENTATION/CONSCIOUSNESS: Yes awake HENMT: COMMON NORMALS: oropharynx normal Neck/C-Spine: COMMON NORMALS: no JVD Resp: AUSCULTATION: diminished lung sounds (Mildly) Cardio: COMMON NORMALS: no JVD, regular rhythm, S1 normal heart sound present, S2 normal heart sound present and No murmurs present (Cardio) RHYTHM: regular rhythm HEART SOUNDS: S1 normal heart sound present and S2 normal heart sound present GI: COMMON NORMALS: Normal to inspection, nondistended, normoactive bowel sounds present, Soft to palpation and non-tender PALPATION: Yes Soft to palpation Extremity: COMMON NORMALS: no joint enlargement GENERAL: Yes edema (2+ ankle edema) Neuro: COMMON NORMALS: patient oriented x3 and moves all extremities SENSORIUM/ORIENTATION: Yes alert Skin: COMMON NORMALS: no rashes or lesions noted GENERAL SKIN EXAM: no rashes or lesions noted (On visible skin) Data 09/21/23 00:00 09/21/23 00:00 Micro: Microbiology 09/21/23 00:06 Blood Culture - Preliminary Blood SPECIMEN COLLECTED 09/21/23 00:00 Blood Culture - Preliminary Blood SPECIMEN COLLECTED A&P Assessment and plan (1) Respiratory failure with hypercapnia: Acute on chronic respiratory failure, normally on 4 L nasal cannula oxygen. Has been dyspneic producing white to green sputum. Oxygen flow increased up to 5 L. With acute respiratory cytosis noted on ABG in ER so started on BiPAP support. Acute respiratory failure combination secondary to severe COPD exacerbation as well as CHF exacerbation. States recently was diagnosed with ESTEFANIA as well, does not yet have NIPPV, possibly contributed to some mild pulmonary edema noted on chest x-ray. Reviewed vitals, CBC, ABG, CMP, NT proBNP, chest x-ray. EKG with old left bundle branch block. Reviewed ER documentation. Discussed with ER physician. Has been on BiPAP support, weaning off to nasal cannula. Target saturation 88- 92%. Avoid hyperoxia. Monitor on telemetry. Reassess vitals. Treat underlying conditions as below. She states she feels she is already improving and wants to go home tomorrow. (2) Acute exacerbation of chronic obstructive pulmonary disease: Severe exacerbation of COPD with dyspnea, productive cough, diminished air entry. Acute respiratory acidosis. Continue IV steroid, discussed with her antibiotic coverage with ceftriaxone. Does have penicillin allergy listed. Has had ceftriaxone in the past without issues. She is agreeable to proceed. Breathing treatments. Continue inhaled budesonide. We will obtain COVID PCR panel. Sputum cultures. (3) Acute exacerbation of CHF (congestive heart failure): Acute systolic and diastolic CHF exacerbation, BNP 4873, somewhat worse than previously. Increased dyspnea. Lower extremity edema. Interstitial edema on CXR. Received Lasix 80 mg. Continue Lasix 60 mg twice daily IV. At risk of electrolyte [place], arrhythmia. Monitor on telemetry. Reassess electrolytes. Noted chronic kidney disease, at risk of renal insufficiency as well. Monitor renal function. Monitor GRISEL. Weights. EKG reviewed, normal without signs of acute ischemia. Does have old LBBB. Reviewed echocardiogram from June 2023, noted EF dropped down to 40-45% at that time, grade 3 diastolic dysfunction. Mild-moderate MVR. (4) ESTEFANIA (obstructive sleep apnea): States that recently had a sleep study as well and found to have sleep apnea and is in the process of obtaining NIPPV Plan Atrial fibrillation anticoagulation, continue Eliquis. DM 2 with neuropathy, continue long-acting insulin, added Accu-Cheks, sliding scale. CC diet. HTN, monitor blood pressures. Cardiac diet. Please resume home medications once available. CKD, Obesity, Anemia, History of bilateral breast cancer Multiple other medical problems Requested home medications to be confirmed. Please review and resume once available. Attestations Medical Necessity Statement*: Place in observation for additional assessment and management of acute respiratory failure with hypercapnia, respiratory acidosis, exacerbation of COPD and CHF. Diagnoses Respiratory failure with hypercapnia J96.92 Acute exacerbation of chronic obstructive pulmonary disease J44.1 Acute exacerbation of CHF (congestive heart failure) I50.9 ESTEFANIA (obstructive sleep apnea) G47.33
[2023-09-21] MEDS: cefTRIAXone 1,000 MG in sodium chloride 0.9% (plus) 50 ML 100 MG IV (03:33)
[2023-09-21] MEDS: flu vacc pf 2023-24 (6 mos+) 60 MCG IM (03:34)
[2023-09-21 03:36] LABS: Lactic Acid level (Lactate) 1.1 mmol/L (0.5-2.2)
[2023-09-21 04:36] LABS: Adenovirus Not Detected (NOT DETECT); Chlamydia Pneumoniae Not Detected (NOT DETECT); Coronavirus 229E,HKU1,NL63,OC4 Not Detected (NOT DETECT); Human Metapneumovirus Not Detected (NOT DETECT); Human Rhinovirus/Enterovirus Not Detected (NOT DETECT); Influenza A Not Detected (NOT DETECT); Influenza A H1 Not Detected (NOT DETECT); Influenza A H1-2009 Not Detected (NOT DETECT); Influenza A H3 Not Detected (NOT DETECT); Influenza B Not Detected (NOT DETECT); Mycoplasma Pneumoniae Not Detected (NOT DETECT); Parainfluenza Virus Type 1 Not Detected (NOT DETECT); Parainfluenza Virus Type 2 Not Detected (NOT DETECT); Parainfluenza Virus Type 3 Not Detected (NOT DETECT); Parainfluenza Virus Type 4 Not Detected (NOT DETECT); Respiratory Syncytial Virus A Not Detected (NOT DETECT); Respiratory Syncytial Virus B Not Detected (NOT DETECT); SARS-COV-2 Not Detected (NOT DETECT)
[2023-09-21] MEDS: methylPREDNISolone sod succ 40 MG in water for injection-sterile 1 ML 12 MG IVP ×2 (06:09→13:05)
[2023-09-21] MEDS: insulin glargine 100 units/1 mL 10 UNIT SUBCUT (06:12)
[2023-09-21 06:38] LABS: Glucose Point of Care 240 mg/dL (70-110)
[2023-09-21] MEDS: apixaban 5 mg Tablet PO (08:22)
[2023-09-21] MEDS: insulin lispro 100 unit/1 mL SUBCUT ×2 (08:22→13:05)
--- NOTE | 2023-09-21 08:59 | PC.NURSE ---
Pt seems to be wanting to sleep and left alone. Attempted to obtain VS and pt refused. Noted that the pt had already taken off all her telemetry wires and O2 pulse ox. Asked pt if she was considering leaving today as I will need to get an AMA form at this time as she was refusing basic care at this time. Pt did not respond but continued to ignore me.
--- NOTE | 2023-09-21 11:18 | PC.PHAR ---
pt states her daughter nandini [phone] sets up her medications-called nandini no answer-pt states the nurse went over the meds last night but med rec is not updated-
[2023-09-21 11:46] LABS: Glucose Point of Care 268 mg/dL (70-110)
--- NOTE | 2023-09-21 12:25 | PC.NURSE ---
Pt sitting up in chair in the room fully clothed and states that she is ready to go home. Pt upset because apparently her family took her cell phone with all of her phone numbers in it and she can't remember phone numbers to call other than her own cell phone and pt states that it has been turned off at this time. Dr. Woodruff has been notified
--- NOTE | 2023-09-21 14:59 | P.DS_ITS ---
Discharge Providers Date of Admission: 09/21/23 01:31 Date of Discharge: September 21, 2023 Attending Provider at Admission: Jovanni Rose Attending Provider at Discharge: Leodan Woodruff DO Primary Care Provider: Patti Irwin DO Diagnoses at Discharge Discharge Diagnosis (1) Respiratory failure with hypercapnia: Status: Acute (2) Acute exacerbation of chronic obstructive pulmonary disease: Status: Acute (3) Acute exacerbation of CHF (congestive heart failure): Status: Acute (4) ESTEFANIA (obstructive sleep apnea): Status: Acute Reason for Visit Reason for Visit: SOB Brief History: 82-year-old lady with history of COPD, asthma, CHF, chronically on 4 L of oxygen by nasal cannula, states that recently had a sleep study as well and found to have sleep apnea and is in the process of obtaining NIPPV, atrial fibrillation anticoagulation, DM 2, HTN, CKD, obesity, anemia, history of bilateral breast cancer, multiple other medical problems presented to the due to worsening shortness of breath, cough productive of white to green sputum, lower extremity swelling.? Her oxygen had to be increased to 5 L.? On ABG with acute respiratory acidosis, 7.3/57.4.? NT-proBNP 4873.? Afebrile.? No leukocytosis.? Chest x-ray with trace bilateral pleural effusions, cardiomegaly and minimal interstitial edema.? Abdominal aortic stent partially visualized. She was started on BiPAP support in ER, received breathing treatment, Solu- Medrol, Lasix dose of, Ativan. States she feels she is already improving and wants to go home tomorrow. Hospital Course Hospital Course Patient reports to me that family lives in the house that turned the heat up and this causes her to be short of breath. She states that she will receive her CPAP this week. I met with patient and another daughter who will assist with bedside commode closer to the bed. Patient is adamant about discharge today. She reports her legs are less swollen and she is breathing well. She only wore the BiPAP for a few hours last night and then started to feel better. We will discharge on antibiotics for exacerbation of COPD and increased dose of Lasix for exacerbation of CHF. Physical Exam Narrative: Elderly female in no acute distress Heart regular normal S1-S2 without loud murmur Lungs: Poor air movement. Prolonged expiration with a few wheezes noted. Abdomen soft nontender nondistended positive bowel sounds Extremities: Remains with +1 pitting edema nursing home up legs Discharge Data Studies Completed and Pending Completed Studies During Hospitalization Category Date Time Status XR chest 1V portable [id number] Stat Exams 09/20/23 23:55 Completed Pending at discharge Category Date Time Status Blood Culture Stat Lab 09/20/23 23:55 Results Complete Blood Count w/Auto AM LABS Lab 09/22/23 04:00 Ordered Complete Blood Count w/Auto AM LABS Lab 09/23/23 04:00 Ordered Complete Blood Count w/Auto AM LABS Lab 09/24/23 04:00 Ordered Comprehensive Metabolic Panel AM LABS Lab 09/22/23 04:00 Ordered Comprehensive Metabolic Panel AM LABS Lab 09/23/23 04:00 Ordered Comprehensive Metabolic Panel AM LABS Lab 09/24/23 04:00 Ordered Sputum Culture and Gram Stain Routine Lab 09/21/23 02:23 Uncollected Radiology Impressions Chest X-Ray 09/20/23 23:55 IMPRESSION: 1. Trace bilateral pleural effusions. 2. Cardiomegaly and minimal interstitial edema. 3. Upper abdominal aortic stent somewhat visualized. Laboratory Results WBC 9.39 10^3/uL (3.29-11.43) 09/21/23 00:00 RBC 3.97 10^6/uL (3.85-5.65) 09/21/23 00:00 Hgb 11.30 g/dL (11.27-16.99) 09/21/23 00:00 Hct 36.9 % (36-47) 09/21/23 00:00 MCV 92.9 fl (85-98) 09/21/23 00:00 MCH 28.5 pg (27-33) 09/21/23 00:00 MCHC 30.6 g/dL (30-55) 09/21/23 00:00 RDW 15.0 % (12.1-15.1) 09/21/23 00:00 Plt Count 384 10^3/cmm (157-399) 09/21/23 00:00 MPV 10.2 fL (7.4-10.4) 09/21/23 00:00 Neut % (Auto) 57.5 % 09/21/23 00:00 Lymph % (Auto) 29.5 % 09/21/23 00:00 [place] % (Auto) 6.4 % 09/21/23 00:00 Eos % (Auto) 6.1 % 09/21/23 00:00 Baso % (Auto) 0.3 % 09/21/23 00:00 Neut # (Auto) 5.40 10^3/uL (1.8-7.7) 09/21/23 00:00 Lymph # (Auto) 2.8 10^3/uL (0.8-4.8) 09/21/23 00:00 [place] # (Auto) 0.6 10^3/uL (0.2-0.9) 09/21/23 00:00 Eos # (Auto) 0.6 10^3/uL (0.0-0.8) 09/21/23 00:00 Baso # (Auto) 0.0 10^3/uL (0.0-0.1) 09/21/23 00:00 Nucleated RBC % (auto) 0 % 09/21/23 00:00 Nucleated RBCs # 0.0 /100WBC 09/21/23 00:00 Specimen Type Arterial 09/21/23 00:04 Sample Site Radial, right 09/21/23 00:04 ABG pH 7.30 (7.35-7.45) L 09/21/23 00:04 ABG pCO2 57.4 mmHg (35-45) H 09/21/23 00:04 ABG pO2 95.3 mmHg (80.0-100.0) 09/21/23 00:04 ABG HCO3 28.4 mmol/L (22-26) H 09/21/23 00:04 ABG Base Excess 1.1 mmol/L (-2.0-2.0) 09/21/23 00:04 Carlos Alberto Test Pos 09/21/23 00:04 Hematocrit 35.0 % (37-47) L 09/21/23 00:04 Hgb O2 Saturation 96.3 % (95-100) 09/21/23 00:04 Carboxyhemoglobin 1.9 %THgb (0.4-20.1) 09/21/23 00:04 Methemoglobin < 0.0 % (0.4-1.5) L 09/21/23 00:04 Total Hemoglobin 11.4 g/dL (12-16) L 09/21/23 00:04 O2 Delivery Device Nc 09/21/23 00:04 O2 Liters/Min 5.0 % 09/21/23 00:04 [place] Protection Maintainer ID Harkr 09/21/23 00:04 Sodium 137 mmol/L (136-145) 09/21/23 00:00 Potassium 4.1 mmol/L (3.5-5.1) 09/21/23 00:00 Chloride 99 mmol/L (98-107) 09/21/23 00:00 Carbon Dioxide 29 mmol/L (22-29) 09/21/23 00:00 Anion Gap 13.1 (5-19) 09/21/23 00:00 BUN 15 mg/dL (8-23) 09/21/23 00:00 Creatinine 1.1 mg/dL (0.5-0.9) H 09/21/23 00:00 GFR Calculation Not Reportable 09/21/23 00:00 Glucose 218 mg/dL (65-115) H 09/21/23 00:00 POC Glucose 268 mg/dL (70-110) H 09/21/23 11:39 Calculated Osmolality 291 mOsm/kg (285-295) 09/21/23 00:00 Lactic Acid 2.1 mmol/L (0.5-2.2) 09/21/23 00:00 Lactic Acid (Sepsis) 1.1 mmol/L (0.5-2.2) 09/21/23 02:43 Calcium 9.1 mg/dL (8.5-10.5) 09/21/23 00:00 Magnesium 2.2 mg/dL (1.7-2.3) 09/21/23 00:00 Total Bilirubin 0.4 mg/dL (0.15-1.2) 09/21/23 00:00 AST 10 U/L (0-32) 09/21/23 00:00 ALT 8 U/L (0-33) 09/21/23 00:00 Alkaline Phosphatase 157 U/L (35-105) H 09/21/23 00:00 NT-Pro-B Natriuret Pep 4873 pg/mL (0-450) H 09/21/23 00:00 Total Protein 6.9 g/dL (6.6-8.7) 09/21/23 00:00 Albumin 4.0 g/dL (3.5-5.2) 09/21/23 00:00 Globulin 2.9 g/dL (1.3-4.6) 09/21/23 00:00 Coronavirus 229E (PCR) Not detected (NOT DETECT) 09/21/23 02:22 SARS-CoV-2 (PCR) Not detected (NOT DETECT) 09/21/23 02:22 Vitals Last Vital Signs Temp 98.0 F 09/21/23 02:25 Pulse 79 09/21/23 05:32 Resp 18 09/21/23 04:02 BP 114/61 09/21/23 04:00 Pulse Ox 97 09/21/23 04:02 O2 Del Method Nasal Cannula 09/21/23 04:02 O2 Flow Rate 5 09/21/23 04:02 FiO2 35 09/21/23 02:46 Discharge Plan Discharge Condition: Stable Prescriptions: New cefdinir 300 mg capsule 300 mg PO BID 10 Days Qty: 20 0RF Continued (DME) overnight oximetry See Rx Instructions .Route .MEDSUPPLY Qty: 1 0RF Rx Instructions: As directed budesonide-formoterol [Symbicort] 160-4.5 mcg/actuation HFA aerosol inhaler 2 puff inhalation Q12H Qty: 10.2 2RF Breztri Aerosphere 160-9-4.8 mcg/actuation HFA aerosol inhaler 2 inh inhalation BID Qty: 10.7 6RF famotidine 20 mg tablet 20 mg PO BID Qty: 180 1RF Eliquis 5 mg tablet 5 mg PO Q12H Qty: 180 3RF (DME) FreeStyle [place] 14 Day Sensor Kit See Rx Instructions .Route Qty: 2 11RF Rx Instructions: As directed (DME) FreeStyle [place] 14 Day [place] Misc See Rx Instructions .Route Qty: 1 0RF Rx Instructions: As directed (DME) blood-glucose meter Misc See Rx Instructions .Route Qty: 1 0RF Rx Instructions: As directed with testing strips (DME) pen needle, diabetic [TechLITE Pen Needle] 32 gauge x 5/32 needle See Rx Instructions .Route Qty: 100 0RF Rx Instructions: As directed atorvastatin 80 mg tablet 80 mg PO BEDTIME Qty: 90 3RF (DME) breast prosthesis bilateral and bras x4 See Rx Instructions .Route .MEDSUPPLY Qty: 1 0RF Rx Instructions: As directed potassium chloride 10 mEq capsule, extended release 10 meq PO BID Qty: 270 0RF clopidogrel 75 mg tablet 75 mg PO BEDTIME Qty: 90 3RF (DME) Blood Glucose Test Strip See Rx Instructions .Route Qty: 120 12RF Rx Instructions: free style test strips - test qid (DME) home oxygen 2l/m continuous See Rx Instructions .Route .MEDSUPPLY Qty: 1 0RF Rx Instructions: As directed carvedilol 6.25 mg tablet 6.25 mg PO BID Qty: 60 0RF oxycodone 15 mg tablet 15 mg PO Q6H PRN (Reason: pain) 30 Days Qty: 120 0RF (DME) CPAP set to 6-16 with supplies See Rx Instructions .Route .MEDSUPPLY Qty: 1 0RF Rx Instructions: As directed fluticasone propionate [Flonase Allergy Relief] 50 mcg/actuation spray,suspension 2 spray intranasal DAILY PRN (Reason: Allergy Symptoms) Rx Instructions: administer into each nostril ondansetron 4 mg tablet,disintegrating 4 mg PO Q8H PRN (Reason: nausea and vomiting) Qty: 15 0RF diphenhydramine HCl [Benadryl] 25 mg Capsule 25 mg PO BEDTIME PRN (Reason: Allergy Symptoms) albuterol sulfate [Ventolin HFA] 90 mcg/actuation HFA aerosol inhaler 2 puff inhalation 6XD PRN (Reason: Shortness Of Breath) loratadine 10 mg tablet 10 mg PO QAM ipratropium-albuterol 0.5 mg-3 mg(2.5 mg base)/3 mL solution for nebulization 3 ml inhalation Q4H PRN (Reason: shortness of breath or wheezing) Qty: 180 0RF Rx Instructions: until breathing returns to target peak flow/parameters glipizide 5 mg tablet 5 mg PO DAILY Lantus Solostar U-100 Insulin 100 unit/mL (3 mL) insulin pen 14 unit SUBCUT DAILY montelukast 10 mg tablet 10 mg PO DAILY lisinopril 2.5 mg tablet 2.5 mg PO DAILY buspirone 5 mg tablet 5 mg PO BEDTIME Changed Lasix 40 mg tablet 40 mg PO BID Qty: 90 1RF Discharge Orders: Discharge Order (Routine); Ordered 09/21/23 Ordered By: Leodan Woodruff Referrals: Patti Irwin, [Primary Care Provider] - (We have notified your physician's clinic of the need for a follow-up appointment to be scheduled. If you have not heard from them within the next 2 business days, please call them directly. You may also reach out to our manager compliance at [phone] and she can assist you.) Discharge Diet: Usual diet Discharge Activity: Increase activity as tolerated Patient Instructions: Cefdinir (By mouth) (Omnicef), CHF Stoplight, Opioid Safety, Obstructive Sleep Apnea Discharge Attestations Time Spent in Discharge Care*: less than 30 min Quality Metrics Clinical Quality Measures [ No reported AMI, CVA or VTE this stay] Coding Level of Care Code Acute Code for Chg Fwd Diagnoses Respiratory failure with hypercapnia J96.92 Acute exacerbation of chronic obstructive pulmonary disease J44.1 Acute exacerbation of CHF (congestive heart failure) I50.9 ESTEFANIA (obstructive sleep apnea) G47.33
--- NOTE | 2023-09-21 15:42 | PC.NURSE ---
Discharge Note Patient discharged to [home] via [w/c to POV] accompanied by [daughter]. Discharge instructions reviewed with patient and/or labor relations representative. Mobile pharmacy medications and/or prescriptions provided. Belongings/home medications returned.
== END 2023-09-21 15:42 | disposition home or self-care (01) ==
LOC: ER 09-21 01:36 → CSU 09-21 05:27
PROVIDERS: Admitting Provider Internal Medicine; Emergency Provider Emergency Medicine; PCP Family Medicine; Visit Provider Internal Medicine
DX: J96.92 Respiratory failure, unspecified with hypercapnia (principal); J44.1 Chronic obstructive pulmonary disease with (acute) exacerbation; I50.9 Heart failure, unspecified; E13.22 Other specified diabetes mellitus with diabetic chronic kidney disease; I13.0 Hypertensive heart and chronic kidney disease with heart failure and stage 1 through stage 4 chronic kidney disease, or unspecified chronic kidney disease; N18.9 Chronic kidney disease, unspecified; G47.33 Obstructive sleep apnea (adult) (pediatric); Z99.81 Dependence on supplemental oxygen; G47.30 Sleep apnea, unspecified; J90 Pleural effusion, not elsewhere classified; I51.7 Cardiomegaly; I25.10 Atherosclerotic heart disease of native coronary artery without angina pectoris; Z85.3 Personal history of malignant neoplasm of breast; Z86.73 Personal history of transient ischemic attack (TIA), and cerebral infarction without residual deficits; E11.42 Type 2 diabetes mellitus with diabetic polyneuropathy; E78.5 Hyperlipidemia, unspecified; F41.1 Generalized anxiety disorder; E66.9 Obesity, unspecified; Z68.32 Body mass index [BMI] 32.0-32.9, adult; Z86.16 Personal history of COVID-19; M81.0 Age-related osteoporosis without current pathological fracture; I48.0 Paroxysmal atrial fibrillation; F17.210 Nicotine dependence, cigarettes, uncomplicated; R00.0 Tachycardia, unspecified
CPT/HCPCS: 36415; 36416; 36600; 71045; 80053; 82805; 82962; 83605; 83735; 83880; 85025; 87040; 87635; 90471; 90686; 93005; 94640; 94660; 94664; 96365; 96372; 96375; 96376; 99291; G0378; J0696; J1815; J1940; J2060; J2920; J2930

== ENCOUNTER → 2023-10-09 09:42 | Outpatient (BNVA) | payer MEDICARE, SELFPAY | PROVIDERS: PCP Family Medicine; Visit Provider Family Medicine | DX: I48.0 Paroxysmal atrial fibrillation (principal); Z23 Encounter for immunization; Z71.85 Encounter for immunization safety counseling; I50.9 Heart failure, unspecified | CPT/HCPCS: 80048 ==

== ENCOUNTER → 2023-10-27 11:52 | Outpatient (BNVA) | payer MEDICARE, SELFPAY | PROVIDERS: PCP Family Medicine; Visit Provider Internal Medicine Cardiovascular Disease | DX: I11.0 Hypertensive heart disease with heart failure (principal); I50.9 Heart failure, unspecified; J44.1 Chronic obstructive pulmonary disease with (acute) exacerbation; G47.33 Obstructive sleep apnea (adult) (pediatric); I47.29 Other ventricular tachycardia; I48.0 Paroxysmal atrial fibrillation; Z98.890 Other specified postprocedural states; C50.911 Malignant neoplasm of unspecified site of right female breast; C50.912 Malignant neoplasm of unspecified site of left female breast; J43.1 Panlobular emphysema; Z86.79 Personal history of other diseases of the circulatory system; I65.23 Occlusion and stenosis of bilateral carotid arteries; F17.219 Nicotine dependence, cigarettes, with unspecified nicotine-induced disorders; E13.9 Other specified diabetes mellitus without complications; I70.1 Atherosclerosis of renal artery; E66.9 Obesity, unspecified; E78.5 Hyperlipidemia, unspecified; Z79.01 Long term (current) use of anticoagulants; Z79.4 Long term (current) use of insulin; Z79.84 Long term (current) use of oral hypoglycemic drugs; Z68.32 Body mass index [BMI] 32.0-32.9, adult | CPT/HCPCS: 99214 ==

== ENCOUNTER → 2023-10-30 10:05 | Outpatient (BNVA) | payer MEDICARE, SELFPAY | PROVIDERS: PCP Family Medicine; Visit Provider Podiatrist Foot & Ankle Surgery | DX: L60.3 Nail dystrophy; L60.0 Ingrowing nail; E11.9 Type 2 diabetes mellitus without complications; Z79.4 Long term (current) use of insulin | CPT/HCPCS: 11721; 99203 ==

== ENCOUNTER 2023-12-16 13:03 | Oncology outpatient (recurring) (ONCR) | payer MEDICARE, SELFPAY ==
[2023-12-16 15:00] LABS: Basophils % 0.2 %; Eosinophils # 0.3 10^3/uL (0.0-0.8); Eosinophils % 5.2 %; Hematocrit 32.9 % (36-47); Lymphocytes # 1.2 10^3/uL (0.8-4.8); Lymphocytes % 20.1 %; Mean Corpuscular Hemoglobin 28.1 pg (27-33); Mean Corpuscular Volume 90.6 fl (85-98); Mean Platelet Volume 10.4 fL (7.4-10.4); Monocytes # 0.5 10^3/uL (0.2-0.9); Monocytes % 7.8 %; Neutrophils # 3.94 10^3/uL (1.8-7.7); Neutrophils % 66.5 %; Nucleated Red Blood Cells % 0 %; Platelet Count 250 10^3/cmm (157-399); Red Blood Count 3.63 10^6/uL (3.85-5.65); Red Cell Distribution Width 14.6 % (12.1-15.1); White Blood Count 5.92 10^3/uL (3.29-11.43)
[2023-12-16 15:18] LABS: Alanine Aminotransferase 9 U/L (0-33); Albumin Level 3.5 g/dL (3.5-5.2); Alkaline Phosphatase 142 U/L (35-105); Anion Gap 13.3 (5-19); Aspartate Amino Transferase 11 U/L (0-32); Blood Urea Nitrogen 28 mg/dL (8-23); Calcium 8.7 mg/dL (8.5-10.5); Carbon Dioxide 34 mmol/L (22-29); Chloride 102 mmol/L (98-107); Ferritin 97 ng/mL (15-150); Globulin 2.8 g/dL (1.3-4.6); Glucose 137 mg/dL (65-115); Iron 40 ug/dL (37-145); Osmolality Calculated 306 mOsm/kg (285-295); Potassium 5.3 mmol/L (3.5-5.1); Sodium 144 mmol/L (136-145); Total Bilirubin 0.4 mg/dL (0.15-1.2); Total Iron Binding Capacity 265 mcg/dl; Total Protein 6.3 g/dL (6.6-8.7); Unsaturated Iron Binding 225 ug/dL (112-347)
[2023-12-16 16:16] LABS: Estmated Average Glucose 174; Hemoglobin A1C 7.7 % (4.0-6.0)
--- NOTE | 2023-12-16 16:17 | ECG_ITS ---
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 Measurements Intervals [place] Rate: 118 P: 0 [place]: 0 QRS: -43 QRSD: 145 T: 77 QT: 358 QTc: 503 Interpretive Statements ATRIAL FIBRILLATION WITH RAPID VENTRICULAR RESPONSE LEFT AXIS DEVIATION [QRS AXIS < -30] INTRAVENTRICULAR CONDUCTION DELAY [130+ ms QRS DURATION] INTERPRETATION BASED ON A DEFAULT AGE OF 40 YEARS Compared to ECG 09/21/2023 00:05:11 Intraventricular conduction delay now present Sinus tachycardia no longer present Short [place] interval no longer present Left bundle-branch block no longer present Electronically Signed On 12-16-2023 19:54:45 [employer] by Jazmín Aguiar M.D. [id number]
== END 2023-12-24 23:59 | disposition home or self-care (01) ==
LOC: ONCMED 13:03
PROVIDERS: PCP Family Medicine; Visit Provider Internal Medicine Medical Oncology
DX: D50.8 Other iron deficiency anemias (principal); C50.812 Malignant neoplasm of overlapping sites of left female breast; C50.919 Malignant neoplasm of unspecified site of unspecified female breast; C50.411 Malignant neoplasm of upper-outer quadrant of right female breast; Z79.899 Other long term (current) drug therapy; K31.84 Gastroparesis; G89.29 Other chronic pain
CPT/HCPCS: 36415; 80053; 82728; 83036; 83540; 83550; 84443; 85025; 93005; 99214

== ENCOUNTER → 2023-12-18 10:04 | Outpatient (BNVA) | payer MEDICARE, SELFPAY | PROVIDERS: PCP Family Medicine; Referring Provider Internal Medicine Medical Oncology; Visit Provider Nurse Practitioner Family | DX: I48.0 Paroxysmal atrial fibrillation (principal); Z79.01 Long term (current) use of anticoagulants | CPT/HCPCS: 99213 ==

== ENCOUNTER 2023-12-24 23:00 | Emergency (ER) | payer MEDICARE, SELFPAY ==
[2023-12-24 23:04] VITALS: BP 131/60; PULSE 116; RESP 18; TEMP 36.6; O2SAT 96
--- NOTE | 2023-12-24 23:47 | ECG_ITS ---
[facility] Test Date: 2023-12-24 Pat Name: Paloma Slater Department: Room: Gender: Female Membership Correspondent: : 1940 Requested By: Panda Obando Order Number: [id number] Latisha MD: Jaxon Fernandes M.D. Measurements Intervals [place] Rate: 113 P: 0 [place]: 0 QRS: -73 QRSD: 141 T: 78 QT: 352 QTc: 484 Interpretive Statements ATRIAL FIBRILLATION WITH RAPID VENTRICULAR RESPONSE INTRAVENTRICULAR CONDUCTION DELAY [130+ ms QRS DURATION] INFERIOR MYOCARDIAL INFARCTION , OF INDETERMINATE AGE [40+ ms Q WAVE AND/OR ST/T ABNORMALITY IN II/aVF] Compared to ECG 12/16/2023 15:50:44 Myocardial infarct finding now present Left-axis deviation no longer present Electronically Signed On 12-27-2023 23:19:23 OVERNIGHT CAREGIVER by Jaxon Fernandes M.D. [id number]
--- NOTE | 2023-12-24 23:53 | XRR_ITS ---
PROCEDURE INFORMATION: Exam: XR Chest Exam date and time: 12/25/2023 12:15 AM Age: 83 years old Clinical indication: Dyspnea TECHNIQUE: Imaging protocol: Radiologic exam of the chest. Views: 1 view. COMPARISON: CR XR chest 1V portable [id number] 09/20/2023 11:58 PM FINDINGS: Lungs: No focal consolidation. Subtle interstitial markings with peribronchial cuffing in both lungs are nonspecific but can be seen the setting of bronchitis, pulmonary vascular congestion, viral infection and small-vessel airways disease. Pleural spaces: Small bilateral pleural effusions. Heart/Mediastinum: Heart is enlarged. Bones/joints: Unremarkable. XR/XR chest 1V portable [id number] IMPRESSION: 1. Small bilateral pleural effusions. 2. Subtle interstitial markings with peribronchial cuffing in both lungs are nonspecific but can be seen the setting of bronchitis, pulmonary vascular congestion, viral infection and small-vessel airways disease.
--- NOTE | 2023-12-25 00:09 | W.ED.SOB ---
HPI - SOB/Dyspnea General: Chief Complaint: Shortness of Breath/Dyspnea Stated Complaint: has chf, is SOB very swollen Time Seen by Provider: 12/24/23 23:53 History of Present Illness: HPI Narrative: Patient presents to the ER with complaints of shortness of breath and retaining a lot of fluid. Patient says she has been going downhill for several days. Patient denies any fevers chills nausea vomiting diarrhea or overt sickness. Patient does have a history of CHF and paroxysmal A-fib. Patient was a started on amiodarone today. Patient is currently also on Eliquis, carvedilol, Plavix, Lasix, patient saw the child support investigator on December 18, 2023 and they called her in some diltiazem for her paroxysmal atrial fibrillation however she is allergic to this and did not take it so then make call her and amiodarone which she picked up today. Review of Systems General: Reports: 10 or more systems reviewed and unremarkable except in HPI and below PFSH ED PFSH: Medical History Bilateral breast cancer Asthma Anxiety Acute respiratory failure with hypoxia and hypercarbia CHF (congestive heart failure) COPD (chronic obstructive pulmonary disease) Respiratory failure Paroxysmal atrial fibrillation MYRA (generalized anxiety disorder) Hypersomnia Chronic anticoagulation Atrial fib/flutter, transient Osteoporosis History of COVID-12 Aug 2021 Pneumonia Chronic kidney disease Diabetic peripheral neuropathy Anemia Carotid artery disease B12 deficiency Chronic pain CVA (cerebral vascular accident) History of nonmelanoma skin cancer Atopic dermatitis Nicotine dependence, cigarettes, with unspecified nicotine-induced disorders Seasonal allergies Renal artery stenosis Descending thoracic aortic aneurysm AAA (abdominal aortic aneurysm) Status post stent graft repair Obesity HTN (hypertension) Dyslipidemia Diabetes 1.5, managed as type 2 Surgical History History of total mastectomy of left breast 04/[address] Vo at [place], [place] History of stent insertion of renal artery History of aortic aneurysm repair S/P mastectomy (08/2009) Right modified radical mastectomy S/P cholecystectomy S/P tonsillectomy S/P hysterectomy Family History Other Stroke Social History (Updated 12/16/23 @ 15:04 by Jerson Garcia Smoking and tobacco/nicotine status: light tobacco/nicotine user cigarettes Alcohol intake: never Substance/Drug Use: never Physical Exam Const: COMMON NORMALS: no acute distress, average body habitus, patient oriented x3, no limitations, healthy appearing, alert and well nourished HENMT: COMMON NORMALS: normocephalic, atraumatic, hearing grossly normal bilaterally, external ears normal, Normal external nose present, moist oral mucous membranes and oropharynx normal HEAD & SCALP: normocephalic and atraumatic NOSE: Normal external nose present EXTERNAL EAR: Yes external ears normal Neck/C-Spine: COMMON NORMALS: no JVD Chest: COMMONS NORMALS: normal inspection of the chest and normal palpation of entire chest wall Resp: COMMON NORMALS: normal respiratory effort, No retractions and No use of accessory muscles; negative for clear to auscultation bilaterally (Decreased breath sounds bilaterally) AUSCULTATION: not clear to auscultation bilaterally (Decreased breath sounds bilaterally) Cardio: COMMON NORMALS: no JVD, S1 normal heart sound present, S2 normal heart sound present, No gallops present (Cardio), No clicks present (Cardio) and No murmurs present (Cardio); negative for regular rhythm (Irregularly irregular mildly tachycardic rhythm) RHYTHM: abnormal rhythm (Irregularly irregular mildly tachycardic rhythm) HEART SOUNDS: S1 normal heart sound present and S2 normal heart sound present GI: COMMON NORMALS: Normal to inspection, nondistended, normoactive bowel sounds present, Soft to palpation, non-tender, No hepatosplenomegaly present and no masses PALPATION: Yes Soft to palpation and Yes No hepatosplenomegaly present Extremity: NARRATIVE EXTREMITY EXAM: 2+ pitting edema bilateral lower extremities Neuro: COMMON NORMALS: patient oriented x3 SENSORIUM/ORIENTATION: Yes alert Course Vital Signs: Vital signs: Vital Signs Temperature 97.8 F 12/24/23 23:04 Pulse Rate 116 H 12/24/23 23:04 Respiratory Rate 18 12/24/23 23:04 Blood Pressure 131/60 12/24/23 23:04 Pulse Oximetry 96 12/24/23 23:04 Oxygen Delivery Me thod Room Air 12/24/23 23:04 MDM - SOB/Dyspnea Medical Decision Making Patient was evaluated had lab work and imaging obtained. Chest x-ray showed small bilateral pleural effusions, lab work revealed a stable BUN/creatinine of 27 and 1.6, BNP of 4555, troponin slightly elevated with a negative delta. Patient was given 2 mg Bumex IV and had quite a good diuresis. Patient is feeling better and ready to go home. We will keep the patient on 2 mg Bumex for the next 5 days. Patient is to follow-up with her PCP within the next 7 days. Differential Diagnosis Likely congestive heart failure; Unlikely acute exacerbation of chronic obstructive airways disease, community acquired pneumonia, asthma with exacerbation or pulmonary embolism Medical Records I reviewed the patient's medical records. Lab Data I reviewed the patient's lab results. 12/25/23 00:08 12/25/23 00:08 Labs/Radiology: Radiology Impressions Chest X-Ray 12/24/23 23:53 IMPRESSION: 1. Small bilateral pleural effusions. 2. Subtle interstitial markings with peribronchial cuffing in both lungs are nonspecific but can be seen the setting of bronchitis, pulmonary vascular congestion, viral infection and small-vessel airways disease. Laboratory Results WBC 8.19 10^3/uL (3.29-11.43) 12/25/23 00:08 RBC 3.90 10^6/uL (3.85-5.65) 12/25/23 00:08 Hgb 11.10 g/dL (11.27-16.99) L 12/25/23 00:08 Hct 35.3 % (36-47) L 12/25/23 00:08 MCV 90.5 fl (85-98) 12/25/23 00:08 MCH 28.5 pg (27-33) 12/25/23 00:08 MCHC 31.4 g/dL (30-55) 12/25/23 00:08 RDW 14.5 % (12.1-15.1) 12/25/23 00:08 Plt Count 335 10^3/cmm (157-399) 12/25/23 00:08 MPV 10.9 fL (7.4-10.4) H 12/25/23 00:08 Neut % (Auto) 68.0 % 12/25/23 00:08 Lymph % (Auto) 16.1 % 12/25/23 00:08 [place] % (Auto) 8.3 % 12/25/23 00:08 Eos % (Auto) 7.0 % 12/25/23 00:08 Baso % (Auto) 0.2 % 12/25/23 00:08 Neut # (Auto) 5.57 10^3/uL (1.8-7.7) 12/25/23 00:08 Lymph # (Auto) 1.3 10^3/uL (0.8-4.8) 12/25/23 00:08 [place] # (Auto) 0.7 10^3/uL (0.2-0.9) 12/25/23 00:08 Eos # (Auto) 0.6 10^3/uL (0.0-0.8) 12/25/23 00:08 Baso # (Auto) 0.0 10^3/uL (0.0-0.1) 12/25/23 00:08 Nucleated RBC % (auto) 0 % 12/25/23 00:08 Nucleated RBCs # 0.0 /100WBC 12/25/23 00:08 PT 17.90 SECONDS (12.1-14.9) H 12/25/23 00:08 INR 1.43 (0.8-1.2) H 12/25/23 00:08 Sodium 136 mmol/L (136-145) 12/25/23 00:08 Potassium 4.3 mmol/L (3.5-5.1) 12/25/23 00:08 Chloride 94 mmol/L (98-107) L 12/25/23 00:08 Carbon Dioxide 33 mmol/L (22-29) H 12/25/23 00:08 Anion Gap 13.3 (5-19) 12/25/23 00:08 BUN 27 mg/dL (8-23) H 12/25/23 00:08 Creatinine 1.6 mg/dL (0.5-0.9) H 12/25/23 00:08 GFR Calculation Not Reportable 12/25/23 00:08 Glucose 198 mg/dL (65-115) H 12/25/23 00:08 Calculated Osmolality 293 mOsm/kg (285-295) 12/25/23 00:08 Calcium 9.0 mg/dL (8.5-10.5) 12/25/23 00:08 Magnesium 2.2 mg/dL (1.7-2.3) 12/25/23 00:08 Total Bilirubin 0.4 mg/dL (0.15-1.2) 12/25/23 00:08 AST 12 U/L (0-32) 12/25/23 00:08 ALT 9 U/L (0-33) 12/25/23 00:08 Alkaline Phosphatase 166 U/L (35-105) H 12/25/23 00:08 Troponin T Baseline 37 ng/L (0-10) H 12/25/23 00:08 Troponin T 120 Minute 29.77 ng/L (0-10) H 12/25/23 02:20 Delta Troponin T -7.23 ABS# (0-10) L 12/25/23 02:20 NT-Pro-B Natriuret Pep 4555 pg/mL (0-450) H 12/25/23 00:08 Total Protein 6.3 g/dL (6.6-8.7) L 12/25/23 00:08 Albumin 3.8 g/dL (3.5-5.2) 12/25/23 00:08 Globulin 2.5 g/dL (1.3-4.6) 12/25/23 00:08 All radiology interpretation(s) finalized by discharge EKG Data EKG 1: I personally reviewed and interpreted this EKG as follows: EKG Interpretation Date: 12/25/23 EKG interpretation time: 23:47 Prior EKG tracings: not available for review Interpretation: EKG showed ventricular rate 113 beats minute, QRS duration 141, QTc of 419, A-fib with RVR, ventricular conduction delay Discharge Plan Discharge Patient Disposition: Home Clinical Impression: CHF (congestive heart failure), Edema Condition: Stable Prescriptions: No Action (DME) overnight oximetry See Rx Instructions .Route .MEDSUPPLY Qty: 1 0RF Rx Instructions: As directed [employer] 160-9-4.8 mcg/actuation HFA aerosol inhaler 2 inh inhalation BID Qty: 10.7 6RF famotidine 20 mg tablet 20 mg PO BID Qty: 180 1RF amiodarone 200 mg tablet 200 mg PO DAILY Qty: 30 0RF Rx Instructions: Take 1 tab twice a day for one week, then one tablet daily. (DME) [employer] 14 Day Sensor Kit See Rx Instructions .Route Qty: 2 11RF Rx Instructions: As directed ([facility]) FreeStyle [place] 14 Day [place] [facility] See Rx Instructions .Route Qty: 1 0RF Rx Instructions: As directed levofloxacin 750 mg tablet 750 mg PO DAILY 7 Days Qty: 7 0RF prednisone 20 mg tablet 20 mg PO BID Qty: 10 0RF Rx Instructions: Take with food Eliquis 5 mg tablet 5 mg PO Q12H Qty: 180 3RF (DME) RSV - pre f3 See Rx Instructions .Route .MEDSUPPLY Qty: 1 0RF Rx Instructions: As directed ([facility]) blood-glucose meter [facility] See Rx Instructions .Route Qty: 1 0RF Rx Instructions: As directed with testing strips ([facility]) pen needle, diabetic [TechLITE Pen Needle] 32 gauge x 5/32 needle See Rx Instructions .Route Qty: 100 0RF Rx Instructions: As directed atorvastatin 80 mg tablet 80 mg PO BEDTIME Qty: 90 3RF (DME) breast prosthesis bilateral and bras x4 See Rx Instructions .Route .MEDSUPPLY Qty: 1 0RF Rx Instructions: As directed clopidogrel 75 mg tablet 75 mg PO BEDTIME Qty: 90 3RF (DME) home oxygen 2l/m continuous See Rx Instructions .Route .MEDSUPPLY Qty: 1 0RF Rx Instructions: As directed ([facility]) CPAP set to 6-16 with supplies See Rx Instructions .Route .MEDSUPPLY Qty: 1 0RF Rx Instructions: As directed buspirone 5 mg tablet See Rx Instructions .ROUTE .COMPLEX Qty: 90 1RF Dose Instruction: TAKE 1 TABLET BY MOUTH AT BEDTIME Rx Instructions: TAKE 1 TABLET BY MOUTH AT BEDTIME glipizide 5 mg tablet See Rx Instructions .ROUTE .COMPLEX Qty: 90 1RF Dose Instruction: TAKE ONE TABLET BY MOUTH EVERY DAY Rx Instructions: TAKE ONE TABLET BY MOUTH EVERY DAY carvedilol 6.25 mg tablet See Rx Instructions .ROUTE .COMPLEX Qty: 240 0RF Dose Instruction: TAKE ONE TABLET BY MOUTH TWICE DAILY Rx Instructions: TAKE ONE TABLET BY MOUTH TWICE DAILY lisinopril 2.5 mg tablet See Rx Instructions .ROUTE .COMPLEX Qty: 90 0RF Hold Instructions: Home Medication placed on hold at Doctor's office Dose Instruction: TAKE ONE TABLET BY MOUTH EVERY DAY Rx Instructions: TAKE ONE TABLET BY MOUTH EVERY DAY montelukast 10 mg tablet See Rx Instructions .ROUTE .COMPLEX Qty: 90 0RF Dose Instruction: TAKE ONE TABLET BY MOUTH EVERY DAY Rx Instructions: TAKE ONE TABLET BY MOUTH EVERY DAY (DME) Blood Glucose Test Strip See Rx Instructions .Route Qty: 120 12RF Rx Instructions: free style test strips - test qid potassium chloride 10 mEq capsule, extended release See Rx Instructions .ROUTE .COMPLEX Qty: 270 0RF Dose Instruction: TAKE ONE CAPSULE BY MOUTH TWICE DAILY Rx Instructions: TAKE ONE CAPSULE BY MOUTH TWICE DAILY oxycodone 15 mg tablet 15 mg PO Q6H PRN (Reason: pain) 30 Days Qty: 120 0RF fluticasone propionate [Flonase Allergy Relief] 50 mcg/actuation spray,suspension 2 spray intranasal DAILY PRN (Reason: Allergy Symptoms) Rx Instructions: administer into each nostril ondansetron 4 mg tablet,disintegrating 4 mg PO Q8H PRN (Reason: nausea and vomiting) Qty: 15 0RF diphenhydramine HCl [Benadryl] 25 mg Capsule 25 mg PO BEDTIME PRN (Reason: Allergy Symptoms) albuterol sulfate [Ventolin HFA] 90 mcg/actuation HFA aerosol inhaler 2 puff inhalation 6XD PRN (Reason: Shortness Of Breath) loratadine 10 mg tablet 10 mg PO QAM ipratropium-albuterol 0.5 mg-3 mg(2.5 mg base)/3 mL solution for nebulization 3 ml inhalation Q4H PRN (Reason: shortness of breath or wheezing) Qty: 180 0RF Rx Instructions: until breathing returns to target peak flow/parameters Lantus Solostar U-100 Insulin 100 unit/mL (3 mL) insulin pen 14 unit SUBCUT DAILY Lasix 40 mg tablet 40 mg PO BID Qty: 90 1RF Discharge Orders: Discharge ED (Routine); Ordered 12/25/23 Ordered By: Panda Obando Referrals: Patti Irwin DO [Primary Care Provider] - 1 week Patient Instructions: Heart Failure (ED), Edema (ED), Atrial Fibrillation Activity Restrictions/Additional Instructions: Please take Bumex 2 mg daily for the next 5 days in addition to your Lasix. This should help you diurese even more. Please follow-up with your family practitioner within next 7 days for repeat labs and further evaluation and treatment. Coding Level of Care Code ED Power Reactor Operator for Betty Vela
[2023-12-25 00:29] LABS: INR 1.43 (0.8-1.2)
[2023-12-25 00:36] LABS: Troponin(5th) Baseline 37 ng/L (0-10)
[2023-12-25 00:44] LABS: Basophils % 0.2 %; Eosinophils # 0.6 10^3/uL (0.0-0.8); Hematocrit 35.3 % (36-47); Lymphocytes # 1.3 10^3/uL (0.8-4.8); Lymphocytes % 16.1 %; Mean Corpuscular HGB Conc 31.4 g/dL (30-55); Mean Corpuscular Hemoglobin 28.5 pg (27-33); Mean Corpuscular Volume 90.5 fl (85-98); Mean Platelet Volume 10.9 fL (7.4-10.4); Monocytes # 0.7 10^3/uL (0.2-0.9); Monocytes % 8.3 %; Neutrophils # 5.57 10^3/uL (1.8-7.7); Nucleated Red Blood Cells % 0 %; Platelet Count 335 10^3/cmm (157-399); Red Cell Distribution Width 14.5 % (12.1-15.1); White Blood Count 8.19 10^3/uL (3.29-11.43)
[2023-12-25 00:45] LABS: Alanine Aminotransferase 9 U/L (0-33); Albumin Level 3.8 g/dL (3.5-5.2); Alkaline Phosphatase 166 U/L (35-105); Anion Gap 13.3 (5-19); Aspartate Amino Transferase 12 U/L (0-32); Blood Urea Nitrogen 27 mg/dL (8-23); Carbon Dioxide 33 mmol/L (22-29); Chloride 94 mmol/L (98-107); Globulin 2.5 g/dL (1.3-4.6); Glucose 198 mg/dL (65-115); Magnesium 2.2 mg/dL (1.7-2.3); NT Pro B Type Natriuretic Pept 4555 pg/mL (0-450); Osmolality Calculated 293 mOsm/kg (285-295); Potassium 4.3 mmol/L (3.5-5.1); Sodium 136 mmol/L (136-145); Total Bilirubin 0.4 mg/dL (0.15-1.2); Total Protein 6.3 g/dL (6.6-8.7)
[2023-12-25] MEDS: metoprolol tartrate 1 mg/1 mL SDV 5 mL 5 MG IVP (00:49)
[2023-12-25] MEDS: bumetanide 0.25 mg/mL SDV 10 mL 2 MG IVP (00:51)
[2023-12-25 01:37] VITALS: BP 101/80; PULSE 131; RESP 24; O2SAT 98
--- NOTE | 2023-12-25 02:24 | ECG_ITS ---
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 Measurements Intervals [place] Rate: 105 P: 0 IN: 0 QRS: -31 QRSD: 158 T: 45 QT: 387 QTc: 513 Interpretive Statements ATRIAL FIBRILLATION WITH RAPID VENTRICULAR RESPONSE LEFT AXIS DEVIATION [QRS AXIS < -30] INTRAVENTRICULAR CONDUCTION DELAY [130+ ms QRS DURATION] Compared to ECG 12/16/2023 15:50:44 No significant changes Electronically Signed On 12-28-2023 11:00:02 NEWS CAMERA OPERATOR by Jaxon Fernandes M.D. [email or web address]
[2023-12-25 02:30] VITALS: BP 116/75; PULSE 100; RESP 29; O2SAT 92
[2023-12-25 02:42] LABS: Troponin 5 2HR 29.77 ng/L (0-10)
[2023-12-25 03:21] VITALS: PULSE 100; RESP 20; O2SAT 94
== END 2023-12-25 03:30 | disposition home or self-care (01) ==
PROVIDERS: Emergency Provider Emergency Medicine; PCP Family Medicine
DX: I13.0 Hypertensive heart and chronic kidney disease with heart failure and stage 1 through stage 4 chronic kidney disease, or unspecified chronic kidney disease (principal); E11.22 Type 2 diabetes mellitus with diabetic chronic kidney disease; N18.9 Chronic kidney disease, unspecified; I50.9 Heart failure, unspecified; Z79.01 Long term (current) use of anticoagulants; Z79.84 Long term (current) use of oral hypoglycemic drugs; Z79.02 Long term (current) use of antithrombotics/antiplatelets; Z79.4 Long term (current) use of insulin; F17.210 Nicotine dependence, cigarettes, uncomplicated; Z85.3 Personal history of malignant neoplasm of breast; J44.9 Chronic obstructive pulmonary disease, unspecified; Z86.73 Personal history of transient ischemic attack (TIA), and cerebral infarction without residual deficits; E78.5 Hyperlipidemia, unspecified
CPT/HCPCS: 71045; 80053; 83735; 83880; 84484; 85025; 85610; 93005; 96374; 96375; 99285; J3490

== ENCOUNTER → 2023-12-30 09:54 | Outpatient (BNVA) | payer MEDICARE, SELFPAY | PROVIDERS: PCP Family Medicine; Visit Provider Nurse Practitioner Family | DX: I13.0 Hypertensive heart and chronic kidney disease with heart failure and stage 1 through stage 4 chronic kidney disease, or unspecified chronic kidney disease (principal); E13.22 Other specified diabetes mellitus with diabetic chronic kidney disease; F17.210 Nicotine dependence, cigarettes, uncomplicated; N18.9 Chronic kidney disease, unspecified; I50.32 Chronic diastolic (congestive) heart failure; I48.0 Paroxysmal atrial fibrillation; Z79.01 Long term (current) use of anticoagulants; Z79.4 Long term (current) use of insulin | CPT/HCPCS: 99214 ==

== ENCOUNTER 2024-01-11 22:20 | Emergency (ER) | payer MEDICARE, SELFPAY ==
--- NOTE | 2024-01-11 22:26 | ECG_ITS ---
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 Measurements Intervals [place] Rate: 113 P: 0 VT: 0 QRS: -76 QRSD: 156 T: 81 QT: 372 QTc: 510 Interpretive Statements ATRIAL FIBRILLATION WITH RAPID VENTRICULAR RESPONSE LEFT AXIS DEVIATION [QRS AXIS < -30] INTRAVENTRICULAR CONDUCTION DELAY [130+ ms QRS DURATION] Compared to ECG 12/25/2023 02:24:34 No significant changes Electronically Signed On 01-11-2024 23:06:24 CUTTING TABLE OPERATOR by Jonnie Reese M.D. [id number]
--- NOTE | 2024-01-11 22:26 | XRR_ITS ---
PROCEDURE INFORMATION: Exam: XR Chest Exam date and time: 01/11/2024 10:33 PM Age: 83 years old Clinical indication: Angina pectoris; Patient HX: HTN; Chest pain TECHNIQUE: Imaging protocol: Radiologic exam of the chest. Views: 1 view. COMPARISON: CR XR chest 1V portable [id number] 12/25/2023 12:15 AM FINDINGS: Lungs: Unremarkable. No consolidation. Pleural spaces: Unremarkable. No pleural effusion. No pneumothorax. Heart/Mediastinum: Cardiomegaly. Bones/joints: Unremarkable. XR/XR chest 1V portable [id number] IMPRESSION: Cardiomegaly, lungs are clear.
[2024-01-11 22:30] VITALS: BP 109/86; PULSE 106; RESP 18; TEMP 36.3; O2SAT 99; BMI 32.9
--- NOTE | 2024-01-11 22:38 | W.ED.ARRPALP ---
HPI - Arrhythmia/Palpitations General: Chief Complaint: Arrhythmia/Palpitations Stated Complaint: chest pain bp high Time Seen by Provider: 01/11/24 22:28 Source: patient Mode of arrival: ambulatory Limitations: no limitations History of Present Illness: 83-year-old female states she had some mild chest pain that started earlier today she states it was sharp pain she rated 2 out of 10 she denies any shortness of breath denies any vomiting or diarrhea. She denies any cough denies any fever denies any worsening improving factors. Associated symptoms: Deny nausea or vomiting Review of Systems Const: Denies: fever(s), chills, body aches or change in appetite ENMT: Denies: throat pain or dental pain Card: Reports: chest pain Resp: Denies: dyspnea GI: Denies: abdominal pain, nausea, vomiting or diarrhea : Denies: dysuria Musc: Denies: neck pain or back pain Skin/Breast: Denies: rash Neuro: Denies: headache(s) PFSH ED PFSH: Medical History Bilateral breast cancer Asthma Anxiety Acute respiratory failure with hypoxia and hypercarbia CHF (congestive heart failure) COPD (chronic obstructive pulmonary disease) Respiratory failure Paroxysmal atrial fibrillation MYRA (generalized anxiety disorder) Hypersomnia Chronic anticoagulation Atrial fib/flutter, transient Osteoporosis History of COVID-12 Aug 2021 Pneumonia Chronic kidney disease Diabetic peripheral neuropathy Anemia Carotid artery disease B12 deficiency Chronic pain CVA (cerebral vascular accident) History of nonmelanoma skin cancer Atopic dermatitis Nicotine dependence, cigarettes, with unspecified nicotine-induced disorders Seasonal allergies Renal artery stenosis Descending thoracic aortic aneurysm AAA (abdominal aortic aneurysm) Status post stent graft repair Obesity HTN (hypertension) Dyslipidemia Diabetes 1.5, managed as type 2 Surgical History History of total mastectomy of left breast 04/[address] Vo at [place], [place] History of stent insertion of renal artery History of aortic aneurysm repair S/P mastectomy (08/2009) Right modified radical mastectomy S/P cholecystectomy S/P tonsillectomy S/P hysterectomy Family History Other Stroke Social History (Reviewed 12/30/23 @ 08:26 by MONICA Alvarado Smoking and tobacco/nicotine status: light tobacco/nicotine user cigarettes Alcohol intake: never Substance/Drug Use: never Physical Exam Const: COMMON NORMALS: no acute distress, patient oriented x3 and healthy appearing HENMT: COMMON NORMALS: normocephalic and atraumatic HEAD & SCALP: normocephalic and atraumatic Neck/C-Spine: COMMON NORMALS: full ROM and supple Chest: COMMONS NORMALS: normal inspection of the chest Resp: COMMON NORMALS: normal respiratory effort, No retractions, No use of accessory muscles and clear to auscultation bilaterally AUSCULTATION: clear to auscultation bilaterally Cardio: RATE: tachycardic RHYTHM: abnormal rhythm irregularly irregular GI: COMMON NORMALS: Normal to inspection, nondistended, normoactive bowel sounds present, Soft to palpation, non-tender and no masses PALPATION: Yes Soft to palpation Extremity: COMMON NORMALS: normal to inspection and full ROM Neuro: COMMON NORMALS: patient oriented x3, moves all extremities and no focal motor deficits Psych: COMMON NORMALS: mental status grossly normal, Normal thought process present and cooperative THOUGHT PROCESS: Normal thought process present Skin: COMMON NORMALS: no rashes or lesions noted and no wounds GENERAL SKIN EXAM: no rashes or lesions noted Course Vital Signs: Vital signs: Vital Signs Temperature 97.4 F L 01/11/24 22:30 Pulse Rate 106 H 01/11/24 22:30 Respiratory Rate 18 01/11/24 22:30 Blood Pressure 109/86 01/11/24 22:30 Pulse Oximetry 99 01/11/24 22:30 Oxygen Delivery Me thod Nasal Cannula 01/11/24 22:30 Oxygen Flow Rate 3 01/11/24 22:30 MDM - Arrhythmia/Palpitations Medical Decision Making Patient presents here with chest pain her 2-hour troponin here is negative and she has no signs of ACS no signs of pulmonary embolism or aortic dissection she is to follow-up with her PCP and return if worsening she understands agrees to plan. Medical Records I reviewed the patient's medical records. Lab Data I reviewed the patient's lab results. 01/11/24 22:40 01/11/24 22:40 Radiology Impressions Chest X-Ray 01/11/24 22:26 IMPRESSION: Cardiomegaly, lungs are clear. Laboratory Results WBC 7.06 10^3/uL (3.29-11.43) 01/11/24 22:40 RBC 4.23 10^6/uL (3.85-5.65) 01/11/24 22:40 Hgb 11.80 g/dL (11.27-16.99) 01/11/24 22:40 Hct 37.8 % (36-47) 01/11/24 22:40 MCV 89.4 fl (85-98) 01/11/24 22:40 MCH 27.9 pg (27-33) 01/11/24 22:40 MCHC 31.2 g/dL (30-55) 01/11/24 22:40 RDW 14.6 % (12.1-15.1) 01/11/24:40 Plt Count 323 10^3/cmm (157-399) 01/11/24 22:40 MPV 10.5 fL (7.4-10.4) H 01/11/24 22:40 Neut % (Auto) 54.5 % 01/11/24 22:40 Lymph % (Auto) 27.3 % 01/11/24 22:40 [place] % (Auto) 9.6 % 01/11/24 22:40 Eos % (Auto) 8.2 % 01/11/24 22:40 Baso % (Auto) 0.3 % 01/11/24 22:40 Neut # (Auto) 3.84 10^3/uL (1.8-7.7) 01/11/24 22:40 Lymph # (Auto) 1.9 10^3/uL (0.8-4.8) 01/11/24 22:40 [place] # (Auto) 0.7 10^3/uL (0.2-0.9) 01/11/24 22:40 Eos # (Auto) 0.6 10^3/uL (0.0-0.8) 01/11/24 22:40 Baso # (Auto) 0.0 10^3/uL (0.0-0.1) 01/11/24 22:40 Nucleated RBC % (auto) 0 % 01/11/24:40 Nucleated RBCs # 0.0 /100WBC 01/11/24 22:40 PT 18.20 SECONDS (12.1-14.9) H 01/11/24 22:40 INR 1.45 (0.8-1.2) H 01/11/24 22:40 Sodium 138 mmol/L (136-145) 01/11/24 22:40 Potassium 3.2 mmol/L (3.5-5.1) L 01/11/24 22:40 Chloride 89 mmol/L (98-107) L 01/11/24 22:40 Carbon Dioxide 37 mmol/L (22-29) H 01/11/24 22:40 Anion Gap 15.2 (5-19) 01/11/24 22:40 BUN 35 mg/dL (8-23) H 01/11/24 22:40 Creatinine 2.0 mg/dL (0.5-0.9) H 01/11/24 22:40 GFR Calculation Not Reportable 01/11/24 22:40 Glucose 222 mg/dL (65-115) H 01/11/24 22:40 Calculated Osmolality 301 mOsm/kg (285-295) H 01/11/24 22:40 Calcium 9.0 mg/dL (8.5-10.5) 01/11/24 22:40 Total Bilirubin 0.5 mg/dL (0.15-1.2) 01/11/24 22:40 AST 16 U/L (0-32) 01/11/24 22:40 ALT 12 U/L (0-33) 01/11/24 22:40 Alkaline Phosphatase 161 U/L (35-105) H 01/11/24 22:40 Creatine Kinase 50 U/L (26-192) 01/11/24 22:40 Troponin T Baseline 41 ng/L (0-10) H 01/11/24 22:40 Troponin T 120 Minute 33.93 ng/L (0-10) H 01/12/24 00:49 Delta Troponin T -7.07 ABS# (0-10) L 01/12/24 00:49 NT-Pro-B Natriuret Pep 4668 pg/mL (0-450) H 01/11/24 22:40 NT-Pro-B Natriuret Pep Cancelled 01/11/24 22:40 Total Protein 6.9 g/dL (6.6-8.7) 01/11/24 22:40 Albumin 4.2 g/dL (3.5-5.2) 01/11/24 22:40 Globulin 2.7 g/dL (1.3-4.6) 01/11/24 22:40 All radiology interpretation(s) finalized by discharge EKG Data EKG 1: I personally reviewed and interpreted this EKG as follows: EKG interpretation date: 01/11/24 EKG interpretation time: 22:24 Interpretation: afib hr [address] elevation qrs 156 qtc 439 Other EKG comments: Chest X-Ray 01/11/24 22:26 IMPRESSION: Cardiomegaly, lungs are clear. Discharge Plan Discharge Patient Disposition: Home Clinical Impression: Chest pain Condition: Stable Prescriptions: No Action (DME) overnight oximetry See Rx Instructions .Route .MEDSUPPLY Qty: 1 0RF Rx Instructions: As directed [employer] 160-9-4.8 mcg/actuation HFA aerosol inhaler 2 inh inhalation BID Qty: 10.7 6RF famotidine 20 mg tablet 20 mg PO BID Qty: 180 1RF amiodarone 200 mg tablet 200 mg PO DAILY Qty: 30 0RF Rx Instructions: Take 1 tab twice a day for one week, then one tablet daily. bumetanide 2 mg tablet 1 mg PO DAILY Qty: 30 1RF (DME) FreeStyle [place] 14 Day Sensor Kit See Rx Instructions .Route Qty: 2 11RF Rx Instructions: As directed (DME) FreeStyle [place] 14 Day [place] Misc See Rx Instructions .Route Qty: 1 0RF Rx Instructions: As directed levofloxacin 750 mg tablet 750 mg PO DAILY 7 Days Qty: 7 0RF prednisone 20 mg tablet 20 mg PO BID Qty: 10 0RF Rx Instructions: Take with food Eliquis 5 mg tablet 5 mg PO Q12H Qty: 180 3RF (DME) RSV - pre f3 See Rx Instructions .Route .MEDSUPPLY Qty: 1 0RF Rx Instructions: As directed (DME) blood-glucose meter Misc See Rx Instructions .Route Qty: 1 0RF Rx Instructions: As directed with testing strips (DME) pen needle, diabetic [TechLITE Pen Needle] 32 gauge x 5/32 needle See Rx Instructions .Route Qty: 100 0RF Rx Instructions: As directed (DME) breast prosthesis bilateral and bras x4 See Rx Instructions .Route .MEDSUPPLY Qty: 1 0RF Rx Instructions: As directed clopidogrel 75 mg tablet 75 mg PO BEDTIME Qty: 90 3RF (DME) home oxygen 2l/m continuous See Rx Instructions .Route .MEDSUPPLY Qty: 1 0RF Rx Instructions: As directed (DME) CPAP set to 6-16 with supplies See Rx Instructions .Route .MEDSUPPLY Qty: 1 0RF Rx Instructions: As directed buspirone 5 mg tablet See Rx Instructions .ROUTE .COMPLEX Qty: 90 1RF Dose Instruction: TAKE 1 TABLET BY MOUTH AT BEDTIME Rx Instructions: TAKE 1 TABLET BY MOUTH AT BEDTIME glipizide 5 mg tablet See Rx Instructions .ROUTE .COMPLEX Qty: 90 1RF Dose Instruction: TAKE ONE TABLET BY MOUTH EVERY DAY Rx Instructions: TAKE ONE TABLET BY MOUTH EVERY DAY carvedilol 6.25 mg tablet See Rx Instructions .ROUTE .COMPLEX Qty: 240 0RF Dose Instruction: TAKE ONE TABLET BY MOUTH TWICE DAILY Rx Instructions: TAKE ONE TABLET BY MOUTH TWICE DAILY lisinopril 2.5 mg tablet See Rx Instructions .ROUTE .COMPLEX Qty: 90 0RF Hold Instructions: Home Medication placed on hold at Doctor's office Dose Instruction: TAKE ONE TABLET BY MOUTH EVERY DAY Rx Instructions: TAKE ONE TABLET BY MOUTH EVERY DAY montelukast 10 mg tablet See Rx Instructions .ROUTE .COMPLEX Qty: 90 0RF Dose Instruction: TAKE ONE TABLET BY MOUTH EVERY DAY Rx Instructions: TAKE ONE TABLET BY MOUTH EVERY DAY (DME) Blood Glucose Test Strip See Rx Instructions .Route Qty: 120 12RF Rx Instructions: free style test strips - test qid potassium chloride 10 mEq capsule, extended release See Rx Instructions .ROUTE .COMPLEX Qty: 270 0RF Dose Instruction: TAKE ONE CAPSULE BY MOUTH TWICE DAILY Rx Instructions: TAKE ONE CAPSULE BY MOUTH TWICE DAILY atorvastatin 80 mg tablet 80 mg PO BEDTIME Qty: 90 3RF metolazone 2.5 mg tablet 2.5 mg PO DAILY Qty: 3 0RF Rx Instructions: take 30 minutes before Bumex oxycodone 15 mg tablet 15 mg PO Q6H PRN (Reason: pain) 30 Days Qty: 120 0RF fluticasone propionate [Flonase Allergy Relief] 50 mcg/actuation spray,suspension 2 spray intranasal DAILY PRN (Reason: Allergy Symptoms) Rx Instructions: administer into each nostril ondansetron 4 mg tablet,disintegrating 4 mg PO Q8H PRN (Reason: nausea and vomiting) Qty: 15 0RF diphenhydramine HCl [Benadryl] 25 mg Capsule 25 mg PO BEDTIME PRN (Reason: Allergy Symptoms) albuterol sulfate [Ventolin HFA] 90 mcg/actuation HFA aerosol inhaler 2 puff inhalation 6XD PRN (Reason: Shortness Of Breath) loratadine 10 mg tablet 10 mg PO QAM ipratropium-albuterol 0.5 mg-3 mg(2.5 mg base)/3 mL solution for nebulization 3 ml inhalation Q4H PRN (Reason: shortness of breath or wheezing) Qty: 180 0RF Rx Instructions: until breathing returns to target peak flow/parameters Lantus Solostar U-100 Insulin 100 unit/mL (3 mL) insulin pen 14 unit SUBCUT DAILY Lasix 40 mg tablet 40 mg PO BID Qty: 90 1RF Hold Instructions: Dose Change Discharge Orders: Discharge ED (Routine); Ordered 01/12/24 Ordered By: Paty Mosqueda Referrals: Patti Irwin DO [Primary Care Provider] - 4-7 days Discharge Diet: Advance as tolerated Discharge Activity: Resume usual activity Patient Instructions: Chest Pain (ED) Coding Level of Care Code ED Forensic Science Technician for Betty Vela
[2024-01-11 22:49] LABS: Basophils % 0.3 %; Eosinophils # 0.6 10^3/uL (0.0-0.8); Eosinophils % 8.2 %; Hematocrit 37.8 % (36-47); Lymphocytes # 1.9 10^3/uL (0.8-4.8); Lymphocytes % 27.3 %; Mean Corpuscular HGB Conc 31.2 g/dL (30-55); Mean Corpuscular Hemoglobin 27.9 pg (27-33); Mean Corpuscular Volume 89.4 fl (85-98); Mean Platelet Volume 10.5 fL (7.4-10.4); Monocytes # 0.7 10^3/uL (0.2-0.9); Monocytes % 9.6 %; Neutrophils # 3.84 10^3/uL (1.8-7.7); Neutrophils % 54.5 %; Nucleated Red Blood Cells % 0 %; Platelet Count 323 10^3/cmm (157-399); Red Blood Count 4.23 10^6/uL (3.85-5.65); Red Cell Distribution Width 14.6 % (12.1-15.1); White Blood Count 7.06 10^3/uL (3.29-11.43)
[2024-01-11 23:08] LABS: INR 1.45 (0.8-1.2)
[2024-01-11 23:17] LABS: Troponin(5th) Baseline 41 ng/L (0-10)
[2024-01-11 23:27] LABS: Alanine Aminotransferase 12 U/L (0-33); Albumin Level 4.2 g/dL (3.5-5.2); Alkaline Phosphatase 161 U/L (35-105); Anion Gap 15.2 (5-19); Aspartate Amino Transferase 16 U/L (0-32); Blood Urea Nitrogen 35 mg/dL (8-23); Carbon Dioxide 37 mmol/L (22-29); Chloride 89 mmol/L (98-107); Creatine Phosphokinase 50 U/L (26-192); Globulin 2.7 g/dL (1.3-4.6); Glucose 222 mg/dL (65-115); NT Pro B Type Natriuretic Pept 4668 pg/mL (0-450); Osmolality Calculated 301 mOsm/kg (285-295); Potassium 3.2 mmol/L (3.5-5.1); Sodium 138 mmol/L (136-145); Total Bilirubin 0.5 mg/dL (0.15-1.2); Total Protein 6.9 g/dL (6.6-8.7)
[2024-01-12 01:20] LABS: Troponin 5 2HR 33.93 ng/L (0-10)
[2024-01-12 01:21] LABS: Troponin 5 2HR Delta -7.07 ABS# (0-10)
[2024-01-12 02:08] VITALS: BP 94/62; PULSE 88; RESP 18; O2SAT 93
== END 2024-01-12 02:06 | disposition home or self-care (01) ==
PROVIDERS: Emergency Provider Emergency Medicine; PCP Family Medicine
DX: R07.9 Chest pain, unspecified (principal); Z79.01 Long term (current) use of anticoagulants; Z79.02 Long term (current) use of antithrombotics/antiplatelets; Z79.84 Long term (current) use of oral hypoglycemic drugs; Z79.4 Long term (current) use of insulin; F17.210 Nicotine dependence, cigarettes, uncomplicated; Z85.3 Personal history of malignant neoplasm of breast; J44.9 Chronic obstructive pulmonary disease, unspecified; I13.0 Hypertensive heart and chronic kidney disease with heart failure and stage 1 through stage 4 chronic kidney disease, or unspecified chronic kidney disease; E11.22 Type 2 diabetes mellitus with diabetic chronic kidney disease; N18.9 Chronic kidney disease, unspecified; I50.9 Heart failure, unspecified; Z86.73 Personal history of transient ischemic attack (TIA), and cerebral infarction without residual deficits; E78.5 Hyperlipidemia, unspecified
CPT/HCPCS: 71045; 80053; 82550; 83880; 84484; 85025; 85610; 93005; 99285

== ENCOUNTER 2024-01-26 19:56 | Emergency (ER) | payer MEDICARE, SELFPAY ==
--- NOTE | 2024-01-26 19:58 | ECG_ITS ---
[facility] Test Date: 2024-01-26 Pat Name: Paloma Slater Department: Room: Gender: Female Order Dispatcher Chief: : [id number] Requested By: Paty Mosqueda Order Number: [id number] Latisha MD: Jaxon Fernandes M.D. Measurements Intervals [place] Rate: 94 P: 0 MS: 0 QRS: -85 QRSD: 153 T: 73 QT: 413 QTc: 518 Interpretive Statements ATRIAL FIBRILLATION INTRAVENTRICULAR CONDUCTION DELAY [130+ ms QRS DURATION] INFERIOR MYOCARDIAL INFARCTION , OF INDETERMINATE AGE [40+ ms Q WAVE AND/OR ST/T ABNORMALITY IN II/aVF] Compared to ECG 01/11/2024 22:24:12 Myocardial infarct finding now present Left-axis deviation no longer present Electronically Signed On 01-26-2024 23:18:00 [employer]ODLE [employer] by Jaxon Fernandes M.D. [id number] f
--- NOTE | 2024-01-26 19:58 | XRR_ITS ---
PROCEDURE INFORMATION: Exam: XR Chest Exam date and time: 01/26/2024 8:26 PM Age: 83 years old Clinical indication: Shortness of breath; Additional info: Sobw TECHNIQUE: Imaging protocol: Radiologic exam of the chest. Views: 1 view. COMPARISON: CR (CHEST, ) 01/11/2024 10:33 PM FINDINGS: Lungs: Unremarkable. No consolidation. Pleural spaces: Unremarkable. No pleural effusion. No pneumothorax. Heart/Mediastinum: There is cardiomegaly. Vasculature: There are aortic arch calcifications. Upper abdominal aortic stent. Bones/joints: Moderate degenerative disease of bilateral acromioclavicular and bilateral glenohumeral joints. There is a curvature of the thoracic spine convex to the right. XR/XR chest 1V portable 18110 IMPRESSION: No acute cardiopulmonary process.
[2024-01-26 20:04] VITALS: BP 111/71; PULSE 92; RESP 20; TEMP 36.6; O2SAT 100; BMI 31.8
--- NOTE | 2024-01-26 20:41 | ED_ITS ---
HPI - SOB/Dyspnea 2 General: Chief Complaint: Shortness of Breath/Dyspnea Stated Complaint: sob Time Seen by Provider: 01/26/24 20:00 History of Present Illness: HPI Narrative: Patient presents to the ER with complaints of shortness of breath and lower leg swelling. Patient is already on 1 daily diuretic and has another 1 to use as needed and she has seen her computer video game designer talked about this before. Patient still thinks it is getting worse even on both diuretics. This been worsening over the last several days. However I saw the patient probably a month ago for similar episodes. Since then she has seen her computer video game designer as well. Patient is on 3 L of oxygen all the time and in the ER she is on 3 L and her O2 sat is 100%. Review of Systems 2 General: Reports: 10 or more systems reviewed and unremarkable except in HPI and below PFSH ED 2 PFSH: Medical History Bilateral breast cancer Asthma Anxiety Acute respiratory failure with hypoxia and hypercarbia CHF (congestive heart failure) COPD (chronic obstructive pulmonary disease) Respiratory failure Paroxysmal atrial fibrillation MYRA (generalized anxiety disorder) Hypersomnia Chronic anticoagulation Atrial fib/flutter, transient Osteoporosis History of COVID-12 Aug 2021 Pneumonia Chronic kidney disease Diabetic peripheral neuropathy Anemia Carotid artery disease B12 deficiency Chronic pain CVA (cerebral vascular accident) History of nonmelanoma skin cancer Atopic dermatitis Nicotine dependence, cigarettes, with unspecified nicotine-induced disorders Seasonal allergies Renal artery stenosis Descending thoracic aortic aneurysm AAA (abdominal aortic aneurysm) Status post stent graft repair Obesity HTN (hypertension) Dyslipidemia Diabetes 1.5, managed as type 2 Surgical History History of total mastectomy of left breast 04/[address] Vo at [place], [place] History of stent insertion of renal artery History of aortic aneurysm repair S/P mastectomy (08/2009) Right modified radical mastectomy S/P cholecystectomy S/P tonsillectomy S/P hysterectomy Family History Other Stroke Social History Smoking and tobacco/nicotine status: light tobacco/nicotine user cigarettes Alcohol intake: never Substance/Drug Use: never Physical Exam 2 Const: COMMON NORMALS: no acute distress, average body habitus, patient oriented x3, no limitations, healthy appearing, alert and well nourished HENMT: COMMON NORMALS: normocephalic, atraumatic, hearing grossly normal bilaterally, external ears normal, EAC's normal, Normal external nose present, moist oral mucous membranes and oropharynx normal HEAD & SCALP: normocephalic and atraumatic NOSE: Normal external nose present EXTERNAL EAR: Yes external ears normal EXTERNAL AUDITORY CANAL: EAC's normal Neck/C-Spine: COMMON NORMALS: no JVD Chest: COMMONS NORMALS: normal inspection of the chest and normal palpation of entire chest wall Resp: COMMON NORMALS: normal respiratory effort, No retractions, No use of accessory muscles and clear to auscultation bilaterally AUSCULTATION: clear to auscultation bilaterally Cardio: COMMON NORMALS: no JVD, regular rate, S1 normal heart sound present, S2 normal heart sound present, No gallops present (Cardio), No clicks present (Cardio), No murmurs present (Cardio) and No rub (Cardio); negative for regular rhythm (Irregularly irregular rhythm) RATE: regular rate RHYTHM: abnormal rhythm (Irregularly irregular rhythm) HEART SOUNDS: S1 normal heart sound present and S2 normal heart sound present GI: COMMON NORMALS: Normal to inspection, nondistended, normoactive bowel sounds present, Soft to palpation, non-tender, No hepatosplenomegaly present and no masses PALPATION: Yes Soft to palpation and Yes No hepatosplenomegaly present Extremity: NARRATIVE EXTREMITY EXAM: 1-2+ pitting edema bilateral lower extre mities up to the knees Neuro: COMMON NORMALS: patient oriented x3 SENSORIUM/ORIENTATION: Yes alert Course 2 Vital Signs: Vital signs: Vital Signs Temperature 97.8 F 01/26/24 20:04 Pulse Rate 96 01/26/24 22:36 Respiratory Rate 18 01/26/24 22:36 Blood Pressure 91/76 01/26/24 22:36 Pulse Oximetry 100 01/26/24 22:36 Oxygen Delivery Me thod Nasal Cannula 01/26/24 20:04 Oxygen Flow Rate 3 01/26/24 20:04 MDM - SOB/Dyspnea Medical Decision Making Lab work was obtained chest x-ray, patient was given 20 mg of IV Lasix. This diuresed the patient very well. Patient was up walking back and forth to the bathroom on room air doing fine. Patient be discharged home and should follow- up with her PCP and computer video game designer for further evaluation and treatment. Differential Diagnosis Likely congestive heart failure; Unlikely acute exacerbation of chronic obstructive airways disease, community acquired pneumonia, asthma with exacerbation or pulmonary embolism Medical Records I reviewed the patient's medical records. Lab Data I reviewed the patient's lab results. 01/26/24 20:57 01/26/24 20:57 Labs/Radiology: Radiology Impressions Chest X-Ray 01/26/24 19:58 IMPRESSION: No acute cardiopulmonary process. Laboratory Results WBC 7.56 10^3/uL (3.29-11.43) 01/26/24 20:57 RBC 3.68 10^6/uL (3.85-5.65) L 01/26/24 20:57 Hgb 10.30 g/dL (11.27-16.99) L 01/26/24 20:57 Hct 32.7 % (36-47) L 01/26/24 20:57 MCV 88.9 fl (85-98) 01/26/24 20:57 MCH 28.0 pg (27-33) 01/26/24 20:57 MCHC 31.5 g/dL (30-55) 01/26/24 20:57 RDW 14.7 % (12.1-15.1) 01/26/24 20:57 Plt Count 307 10^3/cmm (157-399) 01/26/24 20:57 MPV 10.1 fL (7.4-10.4) 01/26/24 20:57 Neut % (Auto) 65.2 % 01/26/24 20:57 Lymph % (Auto) 18.4 % 01/26/24 20:57 Bullitt % (Auto) 8.9 % 01/26/24 20:57 Eos % (Auto) 6.9 % 01/26/24 20:57 Baso % (Auto) 0.3 % 01/26/24 20:57 Neut # (Auto) 4.94 10^3/uL (1.8-7.7) 01/26/24 20:57 Lymph # (Auto) 1.4 10^3/uL (0.8-4.8) 01/26/24 20:57 Bullitt # (Auto) 0.7 10^3/uL (0.2-0.9) 01/26/24 20:57 Eos # (Auto) 0.5 10^3/uL (0.0-0.8) 01/26/24 20:57 Baso # (Auto) 0.0 10^3/uL (0.0-0.1) 01/26/24 20:57 Nucleated RBC % (auto) 0 % 01/26/24 20:57 Nucleated RBCs # 0.0 /100WBC 01/26/24 20:57 Sodium 140 mmol/L (136-145) 01/26/24 20:57 Potassium 3.5 mmol/L (3.5-5.1) 01/26/24 20:57 Chloride 95 mmol/L (98-107) L 01/26/24 20:57 Carbon Dioxide 34 mmol/L (22-29) H 01/26/24 20:57 Anion Gap 14.5 (5-19) 01/26/24 20:57 BUN 22 mg/dL (8-23) 01/26/24 20:57 Creatinine 1.7 mg/dL (0.5-0.9) H 01/26/24 20:57 GFR Calculation Not Reportable 01/26/24 20:57 Glucose 94 mg/dL (65-115) 01/26/24 20:57 Calculated Osmolality 293 mOsm/kg (285-295) 01/26/24 20:57 Calcium 8.5 mg/dL (8.5-10.5) 01/26/24 20:57 Total Bilirubin 0.4 mg/dL (0.15-1.2) 01/26/24 20:57 AST 17 U/L (0-32) 01/26/24 20:57 ALT 11 U/L (0-33) 01/26/24 20:57 Alkaline Phosphatase 149 U/L (35-105) H 01/26/24 20:57 NT-Pro-B Natriuret Pep 5164 pg/mL (0-450) H 01/26/24 20:57 Total Protein 6.6 g/dL (6.6-8.7) 01/26/24 20:57 Albumin 3.8 g/dL (3.5-5.2) 03/04/24 20:57 Globulin 2.8 g/dL (1.3-4.6) 01/26/24 20:57 All radiology interpretation(s) finalized by discharge EKG Data EKG 1: I personally reviewed and interpreted this EKG as follows: EKG Interpretation Date: 01/26/24 EKG interpretation time: 20:10 Prior EKG tracings: available for review Interpretation: Ventricular rate 94 bpm, QRS duration 153, QTc of 465, atrial fibrillation, intraventricular conduction delay Discharge Plan Discharge Patient Disposition: Home Clinical Impression: Leg edema Condition: Stable Prescriptions: No Action (DME) overnight oximetry See Rx Instructions .Route .MEDSUPPLY Qty: 1 0RF Rx Instructions: As directed Breztri Aerosphere 160-9-4.8 mcg/actuation HFA aerosol inhaler 2 inh inhalation BID Qty: 10.7 6RF famotidine 20 mg tablet 20 mg PO BID Qty: 180 1RF bumetanide 2 mg tablet 1 mg PO DAILY Qty: 30 1RF (DME) FreeStyle Odell 14 Day Sensor Kit See Rx Instructions .Route Qty: 2 11RF Rx Instructions: As directed (DME) FreeStyle Odell 14 Day [place] Misc See Rx Instructions .Route Qty: 1 0RF Rx Instructions: As directed levofloxacin 750 mg tablet 750 mg PO DAILY 7 Days Qty: 7 0RF prednisone 20 mg tablet 20 mg PO BID Qty: 10 0RF Rx Instructions: Take with food Eliquis 5 mg tablet 5 mg PO Q12H Qty: 180 3RF (DME) RSV - pre f3 See Rx Instructions .Route .MEDSUPPLY Qty: 1 0RF Rx Instructions: As directed (DME) blood-glucose meter Misc See Rx Instructions .Route Qty: 1 0RF Rx Instructions: As directed with testing strips (DME) pen needle, diabetic [TechLITE Pen Needle] 32 gauge x 5/32 needle See Rx Instructions .Route Qty: 100 0RF Rx Instructions: As directed (DME) breast prosthesis bilateral and bras x4 See Rx Instructions .Route .MEDSUPPLY Qty: 1 0RF Rx Instructions: As directed clopidogrel 75 mg tablet 75 mg PO BEDTIME Qty: 90 3RF (DME) home oxygen 2l/m continuous See Rx Instructions .Route .MEDSUPPLY Qty: 1 0RF Rx Instructions: As directed (DME) CPAP set to 6-16 with supplies See Rx Instructions .Route .MEDSUPPLY Qty: 1 0RF Rx Instructions: As directed buspirone 5 mg tablet See Rx Instructions .ROUTE .COMPLEX Qty: 90 1RF Dose Instruction: TAKE 1 TABLET BY MOUTH AT BEDTIME Rx Instructions: TAKE 1 TABLET BY MOUTH AT BEDTIME glipizide 5 mg tablet See Rx Instructions .ROUTE .COMPLEX Qty: 90 1RF Dose Instruction: TAKE ONE TABLET BY MOUTH EVERY DAY Rx Instructions: TAKE ONE TABLET BY MOUTH EVERY DAY carvedilol 6.25 mg tablet See Rx Instructions .ROUTE .COMPLEX Qty: 240 0RF Dose Instruction: TAKE ONE TABLET BY MOUTH TWICE DAILY Rx Instructions: TAKE ONE TABLET BY MOUTH TWICE DAILY lisinopril 2.5 mg tablet See Rx Instructions .ROUTE .COMPLEX Qty: 90 0RF Hold Instructions: Home Medication placed on hold at Doctor's office Dose Instruction: TAKE ONE TABLET BY MOUTH EVERY DAY Rx Instructions: TAKE ONE TABLET BY MOUTH EVERY DAY montelukast 10 mg tablet See Rx Instructions .ROUTE .COMPLEX Qty: 90 0RF Dose Instruction: TAKE ONE TABLET BY MOUTH EVERY DAY Rx Instructions: TAKE ONE TABLET BY MOUTH EVERY DAY ([facility] [place]) Blood Glucose Test Strip See Rx Instructions .Route Qty: 120 12RF Rx Instructions: free style test strips - test qid potassium chloride 10 mEq capsule, extended release See Rx Instructions .ROUTE .COMPLEX Qty: 270 0RF Dose Instruction: TAKE ONE CAPSULE BY MOUTH TWICE DAILY Rx Instructions: TAKE ONE CAPSULE BY MOUTH TWICE DAILY atorvastatin 80 mg tablet 80 mg PO BEDTIME Qty: 90 3RF metolazone 2.5 mg tablet 2.5 mg PO DAILY Qty: 3 0RF Rx Instructions: take 30 minutes before Bumex oxycodone 15 mg tablet 15 mg PO Q6H PRN (Reason: pain) 30 Days Qty: 120 0RF amiodarone 200 mg tablet 200 mg PO DAILY Qty: 90 3RF Rx Instructions: Take 1 tab twice a day for one week, then one tablet daily. Lantus Solostar U-100 Insulin 100 unit/mL (3 mL) insulin pen 14 unit SUBCUT DAILY Qty: 15 0RF fluticasone propionate [Flonase Allergy Relief] 50 mcg/actuation spray,suspension 2 spray intranasal DAILY PRN (Reason: Allergy Symptoms) Rx Instructions: administer into each nostril ondansetron 4 mg tablet,disintegrating 4 mg PO Q8H PRN (Reason: nausea and vomiting) Qty: 15 0RF diphenhydramine HCl [Benadryl] 25 mg Capsule 25 mg PO BEDTIME PRN (Reason: Allergy Symptoms) albuterol sulfate [Ventolin HFA] 90 mcg/actuation HFA aerosol inhaler 2 puff inhalation 6XD PRN (Reason: Shortness Of Breath) loratadine 10 mg tablet 10 mg PO QAM ipratropium-albuterol 0.5 mg-3 mg(2.5 mg base)/3 mL solution for nebulization 3 ml inhalation Q4H PRN (Reason: shortness of breath or wheezing) Qty: 180 0RF Rx Instructions: until breathing returns to target peak flow/parameters Lasix 40 mg tablet 40 mg PO BID Qty: 90 1RF Hold Instructions: Dose Change Discharge Orders: Discharge ED (Routine); Ordered 01/26/24 Ordered By: Panda Obando Referrals: Patti Irwin DO [Primary Care Provider] - 1 week Patient Instructions: Edema (ED) Activity Restrictions/Additional Instructions: You are provided an additional dose of IV Lasix in the ER. This provided very good diuresis. Please keep your appointment with your family practice physician and/or computer video game designer as previously set to talk about further evaluation and treatment. Coding Level of Care Code ED Languages And Literature Instructor for Betty Vela
[2024-01-26 21:05] LABS: Basophils % 0.3 %; Eosinophils # 0.5 10^3/uL (0.0-0.8); Eosinophils % 6.9 %; Hematocrit 32.7 % (36-47); Lymphocytes # 1.4 10^3/uL (0.8-4.8); Lymphocytes % 18.4 %; Mean Corpuscular HGB Conc 31.5 g/dL (30-55); Mean Corpuscular Volume 88.9 fl (85-98); Mean Platelet Volume 10.1 fL (7.4-10.4); Monocytes # 0.7 10^3/uL (0.2-0.9); Monocytes % 8.9 %; Neutrophils # 4.94 10^3/uL (1.8-7.7); Neutrophils % 65.2 %; Nucleated Red Blood Cells % 0 %; Platelet Count 307 10^3/cmm (157-399); Red Blood Count 3.68 10^6/uL (3.85-5.65); Red Cell Distribution Width 14.7 % (12.1-15.1); White Blood Count 7.56 10^3/uL (3.29-11.43)
[2024-01-26 21:07] VITALS: BP 102/70; PULSE 91; RESP 17; O2SAT 97
[2024-01-26 21:29] LABS: Alanine Aminotransferase 11 U/L (0-33); Albumin Level 3.8 g/dL (3.5-5.2); Alkaline Phosphatase 149 U/L (35-105); Anion Gap 14.5 (5-19); Aspartate Amino Transferase 17 U/L (0-32); Blood Urea Nitrogen 22 mg/dL (8-23); Calcium 8.5 mg/dL (8.5-10.5); Carbon Dioxide 34 mmol/L (22-29); Chloride 95 mmol/L (98-107); Creatinine Clr Calc Pharmacy 25.2512; Globulin 2.8 g/dL (1.3-4.6); Glucose 94 mg/dL (65-115); NT Pro B Type Natriuretic Pept 5164 pg/mL (0-450); Osmolality Calculated 293 mOsm/kg (285-295); Potassium 3.5 mmol/L (3.5-5.1); Sodium 140 mmol/L (136-145); Total Bilirubin 0.4 mg/dL (0.15-1.2); Total Protein 6.6 g/dL (6.6-8.7)
[2024-01-26] MEDS: FUROsemide 10 mg/mL SDV 2mL 20 MG IVP (22:08)
[2024-01-26 22:36] VITALS: BP 91/76; PULSE 96; RESP 18; O2SAT 100
== END 2024-01-26 22:54 | disposition home or self-care (01) ==
PROVIDERS: Emergency Medicine; Emergency Provider Emergency Medicine; PCP Family Medicine
DX: R60.0 Localized edema (principal); Z79.01 Long term (current) use of anticoagulants; Z79.02 Long term (current) use of antithrombotics/antiplatelets; Z79.84 Long term (current) use of oral hypoglycemic drugs; Z79.4 Long term (current) use of insulin; I48.91 Unspecified atrial fibrillation; F17.210 Nicotine dependence, cigarettes, uncomplicated; I13.0 Hypertensive heart and chronic kidney disease with heart failure and stage 1 through stage 4 chronic kidney disease, or unspecified chronic kidney disease; E11.22 Type 2 diabetes mellitus with diabetic chronic kidney disease; N18.9 Chronic kidney disease, unspecified; I50.9 Heart failure, unspecified; J44.9 Chronic obstructive pulmonary disease, unspecified; Z85.3 Personal history of malignant neoplasm of breast; Z86.73 Personal history of transient ischemic attack (TIA), and cerebral infarction without residual deficits; E78.5 Hyperlipidemia, unspecified
CPT/HCPCS: 71045; 80053; 83880; 85025; 93005; 96374; 99285; J1940

== ENCOUNTER 2024-02-06 13:58 | Emergency (ER) | payer MEDICARE, SELFPAY ==
--- NOTE | 2024-02-06 13:21 | ECG_ITS ---
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 Measurements Intervals Viola Rate: 101 P: 0 MI: 0 QRS: 128 QRSD: 157 T: 58 QT: 397 QTc: 515 Interpretive Statements ATRIAL FIBRILLATION WITH RAPID VENTRICULAR RESPONSE INDETERMINATE AXIS INTRAVENTRICULAR CONDUCTION DELAY [130+ ms QRS DURATION] Compared to ECG 01/26/2024 20:10:50 Indeterminate axis now present Myocardial infarct finding no longer present Electronically Signed On 02-06-2024 22:02:16 CDT by Jaxon Fernandes M.D. [email or web address]
[2024-02-06 14:00] VITALS: PULSE 102; RESP 18; TEMP 36.4; O2SAT 96
--- NOTE | 2024-02-06 14:18 | XRR_ITS ---
PROCEDURE INFORMATION: Exam: XR Chest Exam date and time: 02/06/2024 3:22 PM Age: 83 years old Clinical indication: Shortness of breath; Additional info: SOB TECHNIQUE: Imaging protocol: Radiologic exam of the chest. Views: 1 view. COMPARISON: CR (CHEST, ) 01/26/2024 8:26 PM FINDINGS: Lungs: Both lungs demonstrate diffuse interstitial coarsening which I feel represents mild pulmonary edema.Shreyas B lines are noted in both lung bases. There is no dense consolidation or lung mass. Pleural spaces: Unremarkable. No pleural effusion. No pneumothorax. Heart/Mediastinum: Severe cardiomegaly is noted. Bones/joints: Unremarkable. XR/XR chest 1V portable [id number] IMPRESSION: Severe cardiomegaly with mild pulmonary edema
--- NOTE | 2024-02-06 14:19 | ED_ITS ---
HPI - General Adult 2 General: Chief complaint: General Medical Stated complaint: abd pain, leg pain Time Seen by Provider: 02/06/24 14:11 Source: patient Mode of arrival: ambulatory Limitations: no limitations History of Present Illness: 83-year-old female has a history of venessa estive heart failure multiple other medical issues she is on 3 L oxygen at home. States she has been on Bumex but states she has not urinated much since yesterday. States she is only had some dribbling denies any pain. She states she has had some slight congestion and dyspnea she is in no distress here denies any fever or vomiting. Associated symptoms: Reports dyspnea; Deny chest pain, headache(s), nausea, rash or vomiting Review of Systems 2 Const: Denies: fever(s) or chills ENMT: Denies: throat pain or dental pain Card: Denies: chest pain Resp: Reports: dyspnea GI: Denies: abdominal pain, nausea, vomiting or diarrhea : Reports: difficulty voiding; Denies: dysuria Musc: Denies: neck pain or back pain Skin/Breast: Denies: rash Neuro: Denies: headache(s) PFSH ED 2 PFSH: Medical History Bilateral breast cancer Asthma Anxiety Acute respiratory failure with hypoxia and hypercarbia CHF (congestive heart failure) COPD (chronic obstructive pulmonary disease) Respiratory failure Paroxysmal atrial fibrillation MYRA (generalized anxiety disorder) Hypersomnia Chronic anticoagulation Atrial fib/flutter, transient Osteoporosis History of COVID-12 Aug 2021 Pneumonia Chronic kidney disease Diabetic peripheral neuropathy Anemia Carotid artery disease B12 deficiency Chronic pain CVA (cerebral vascular accident) History of nonmelanoma skin cancer Atopic dermatitis Nicotine dependence, cigarettes, with unspecified nicotine-induced disorders Seasonal allergies Renal artery stenosis Descending thoracic aortic aneurysm AAA (abdominal aortic aneurysm) Status post stent graft repair Obesity HTN (hypertension) Dyslipidemia Diabetes 1.5, managed as type 2 Surgical History History of total mastectomy of left breast 04/[address] Vo at [place], [place] History of stent insertion of renal artery History of aortic aneurysm repair S/P mastectomy (08/2009) Right modified radical mastectomy S/P cholecystectomy S/P tonsillectomy S/P hysterectomy Family History Other Stroke Social History Smoking and tobacco/nicotine status: light tobacco/nicotine user cigarettes Alcohol intake: never Substance/Drug Use: never Physical Exam 2 Const: COMMON NORMALS: no acute distress, patient oriented x3 and healthy appearing HENMT: COMMON NORMALS: normocephalic and atraumatic HEAD & SCALP: n ormocephalic and atraumatic Neck/C-Spine: COMMON NORMALS: full ROM and supple Chest: COMMONS NORMALS: normal inspection of the chest and normal palpation of entire chest wall Resp: COMMON NORMALS: normal respiratory effort, No retractions, No use of accessory muscles and clear to auscultation bilaterally AUSCULTATION: clear to auscultation bilaterally Cardio: COMMON NORMALS: regular rate, regular rhythm and No murmurs present (Cardio) RATE: regular rate RHYTHM: regular rhythm GI: COMMON NORMALS: Normal to inspection, nondistended, normoactive bowel sounds present, Soft to palpation, non-tender and no masses PALPATION: Yes Soft to palpation Extremity: COMMON NORMALS: normal to inspection and full ROM Neuro: COMMON NORMALS: patient oriented x3, moves all extremities and no focal motor deficits Psych: COMMON NORMALS: mental status grossly normal, Normal thought process present and cooperative THOUGHT PROCESS: Normal thought process present Skin: COMMON NORMALS: no rashes or lesions noted and no wounds GENERAL SKIN EXAM: no rashes or lesions noted Course 2 Vital Signs: Vital signs: Vital Signs Temperature 97.5 F L 02/06/24 14:00 Pulse Rate 102 H 02/06/24 14:00 Respiratory Rate 18 02/06/24 14:00 Pulse Oximetry 96 02/06/24 14:00 Oxygen Delivery Me thod Room Air 02/06/24 14:00 MDM - General Adult Medical Decision Making Patient presents here with states that she had a hard time urinating she has been able to urinate did place [facility] did not have much urine out kidney function hears normal. She does not have a UTI she stable for discharge she is follow-up with PCP and return if worsening she understands agrees to plan Medical Records I reviewed the patient's medical records. Lab Data I reviewed the patient's lab results. 02/06/24 14:34 02/06/24 14:34 Radiology Impressions Chest X-Ray 02/06/24 14:18 IMPRESSION: Severe cardiomegaly with mild pulmonary edema Laboratory Results WBC 6.04 10^3/uL (3.29-11.43) 02/06/24 14:34 RBC 3.64 10^6/uL (3.85-5.65) L 02/06/24 14:34 Hgb 10.20 g/dL (11.27-16.99) L 02/06/24 14:34 Hct 32.9 % (36-47) L 02/06/24 14:34 MCV 90.4 fl (85-98) 02/06/24 14:34 MCH 28.0 pg (27-33) 02/06/24 14:34 MCHC 31.0 g/dL (30-55) 02/06/24 14:34 RDW 15.2 % (12.1-15.1) H 02/06/24 14:34 Plt Count 305 10^3/cmm (157-399) 02/06/24 14:34 MPV 9.8 fL (7.4-10.4) 02/06/24 14:34 Neut % (Auto) 69.7 % 02/06/24 14:34 Lymph % (Auto) 17.2 % 02/06/24 14:34 Wolfe % (Auto) 8.1 % 02/06/24 14:34 Eos % (Auto) 4.6 % 02/06/24 14:34 Baso % (Auto) 0.2 % 02/06/24 14:34 Neut # (Auto) 4.21 10^3/uL (1.8-7.7) 02/06/24 14:34 Lymph # (Auto) 1.0 10^3/uL (0.8-4.8) 02/06/24 14:34 Wolfe # (Auto) 0.5 10^3/uL (0.2-0.9) 02/06/24 14:34 Eos # (Auto) 0.3 10^3/uL (0.0-0.8) 02/06/24 14:34 Baso # (Auto) 0.0 10^3/uL (0.0-0.1) 02/06/24 14:34 Nucleated RBC % (auto) 0 % 02/06/24 14:34 Nucleated RBCs # 0.0 /100WBC 02/06/24 14:34 Sodium 138 mmol/L (136-145) 02/06/24 14:34 Potassium 3.6 mmol/L (3.5-5.1) 02/06/24 14:34 Chloride 97 mmol/L (98-107) L 02/06/24 14:34 Carbon Dioxide 31 mmol/L (22-29) H 02/06/24 14:34 Anion Gap 13.6 (5-19) 02/06/24 14:34 BUN 18 mg/dL (8-23) 02/06/24 14:34 Creatinine 1.5 mg/dL (0.5-0.9) H 02/06/24 14:34 GFR Calculation Not Reportable 02/06/24 14:34 Glucose 157 mg/dL (65-115) H 02/06/24 14:34 Calculated Osmolality 291 mOsm/kg (285-295) 02/06/24 14:34 Calcium 8.8 mg/dL (8.5-10.5) 02/06/24 14:34 Total Bilirubin 0.8 mg/dL (0.15-1.2) 02/06/24 14:34 AST 12 U/L (0-32) 02/06/24 14:34 ALT 9 U/L (0-33) 02/06/24 14:34 Alkaline Phosphatase 158 U/L (35-105) H 02/06/24 14:34 Total Protein 6.1 g/dL (6.6-8.7) L 02/06/24 14:34 Albumin 3.3 g/dL (3.5-5.2) L 02/06/24 14:34 Globulin 2.8 g/dL (1.3-4.6) 02/06/24 14:34 Urine Color Yellow (Yellow) 02/06/24 14:31 Urine Appearance Clear (CLEAR) 02/06/24 14:31 Urine pH 6 (5-7) 02/06/24 14:31 Ur Specific [place] 1.005 (1.005-1.030) 02/06/24 14:31 Urine Protein Trace (Negative) 02/06/24 14:31 Urine Glucose (UA) Norm (Normal) 02/06/24 14:31 Urine Ketones Negative (Negative) 02/06/24 14:31 Urine Blood Neg (Negative) 02/06/24 14:31 Urine Nitrate Negative (Negative) 02/06/24 14:31 Urine Bilirubin Neg (Negative) 02/06/24 14:31 Urine Urobilinogen Norm mg/dL (Negative) 02/06/24 14:31 Ur Leukocyte Esterase Negative (Negative) 02/06/24 14:31 All radiology interpretation(s) finalized by discharge EKG Data EKG 1: I personally reviewed and interpreted this EKG as follows: EKG interpretation date: 02/06/24 EKG interpretation time: 13:21 Interpretation: afib with rvr hr [address] or t wave abnormalities qrs 157 qtc 455 Computer generated interpretation: Chest X-Ray 02/06/24 14:18 IMPRESSION: Severe cardiomegaly with mild pulmonary edema Discharge Plan Discharge Patient Disposition: Home Clinical Impression: Difficulty urinating Condition: Stable Prescriptions: No Action (DME) overnight oximetry See Rx Instructions .Route .MEDSUPPLY Qty: 1 0RF Rx Instructions: As directed [employer] in [employer] 160-9-4.8 mcg/actuation HFA aerosol inhaler 2 inh inhalation BID Qty: 10.7 6RF famotidine 20 mg tablet 20 mg PO BID Qty: 180 1RF bumetanide 1 mg tablet 1 mg PO BID Qty: 60 0RF Rx Instructions: Take one in the Am and at noon (DME) FreeStyle [place] 14 Day Sensor Kit See Rx Instructions .Route Qty: 2 11RF Rx Instructions: As directed (DME) FreeStyle [place] 14 Day [place] Misc See Rx Instructions .Route Qty: 1 0RF Rx Instructions: As directed Eliquis 5 mg tablet 5 mg PO Q12H Qty: 180 3RF (DME) RSV - pre f3 See Rx Instructions .Route .MEDSUPPLY Qty: 1 0RF Rx Instructions: As directed (DME) blood-glucose meter Misc See Rx Instructions .Route Qty: 1 0RF Rx Instructions: As directed with testing strips (DME) pen needle, diabetic [TechLITE Pen Needle] 32 gauge x 5/32 needle See Rx Instructions .Route Qty: 100 0RF Rx Instructions: As directed (DME) breast prosthesis bilateral and bras x4 See Rx Instructions .Route .MEDSUPPLY Qty: 1 0RF Rx Instructions: As directed (DME) home oxygen 2l/m continuous See Rx Instructions .Route .MEDSUPPLY Qty: 1 0RF Rx Instructions: As directed (DME) CPAP set to 6-16 with supplies See Rx Instructions .Route .MEDSUPPLY Qty: 1 0RF Rx Instructions: As directed (DME) Blood Glucose Test Strip See Rx Instructions .Route Qty: 120 12RF Rx Instructions: free style test strips - test qid atorvastatin 80 mg tablet 80 mg PO BEDTIME Qty: 90 3RF oxycodone 15 mg tablet 15 mg PO Q6H PRN (Reason: pain) 30 Days Qty: 120 0RF fluticasone propionate [Flonase Allergy Relief] 50 mcg/actuation spray,suspension 2 spray intranasal DAILY PRN (Reason: Allergy Symptoms) Rx Instructions: administer into each nostril ondansetron 4 mg tablet,disintegrating 4 mg PO Q8H PRN (Reason: nausea and vomiting) Qty: 15 0RF diphenhydramine HCl [Benadryl] 25 mg Capsule 25 mg PO BEDTIME PRN (Reason: Allergy Symptoms) albuterol sulfate [Ventolin HFA] 90 mcg/actuation HFA aerosol inhaler 2 puff inhalation 6XD PRN (Reason: Shortness Of Breath) loratadine 10 mg tablet 10 mg PO QAM ipratropium-albuterol 0.5 mg-3 mg(2.5 mg base)/3 mL solution for nebulization 3 ml inhalation Q4H PRN (Reason: shortness of breath or wheezing) Qty: 180 0RF Rx Instructions: until breathing returns to target peak flow/parameters potassium chloride 10 mEq capsule, extended release 10 meq PO BID carvedilol 6.25 mg tablet 6.25 mg PO BID montelukast 10 mg tablet 10 mg PO BEDTIME lisinopril 2.5 mg tablet 2.5 mg PO DAILY Rx Instructions: on hold per pt 02/06/24 glipizide 5 mg tablet 5 mg PO QAM buspirone 5 mg tablet 5 mg PO BEDTIME PRN (Reason: Anxiety) amiodarone 200 mg tablet 200 mg PO QAM Lantus Solostar U-100 Insulin 100 unit/mL (3 mL) insulin pen 14 unit SUBCUT BEDTIME multivitamin Tablet 1 tab PO DAILY Discharge Orders: Discharge ED (Routine); Ordered 02/06/24 Ordered By: Paty Mosqueda Referrals: Patti Irwin DO [Primary Care Provider] - 4-7 days Discharge Diet: Advance as tolerated Discharge Activity: Resume usual activity Patient Instructions: Dysuria (ED) Coding Level of Care Code ED Chief Compliance Officer for [facility]
[2024-02-06 14:39] LABS: Basophils % 0.2 %; Eosinophils # 0.3 10^3/uL (0.0-0.8); Eosinophils % 4.6 %; Hematocrit 32.9 % (36-47); Lymphocytes % 17.2 %; Mean Corpuscular Volume 90.4 fl (85-98); Mean Platelet Volume 9.8 fL (7.4-10.4); Monocytes # 0.5 10^3/uL (0.2-0.9); Monocytes % 8.1 %; Neutrophils # 4.21 10^3/uL (1.8-7.7); Neutrophils % 69.7 %; Nucleated Red Blood Cells % 0 %; Platelet Count 305 10^3/cmm (157-399); Red Blood Count 3.64 10^6/uL (3.85-5.65); Red Cell Distribution Width 15.2 % (12.1-15.1); White Blood Count 6.04 10^3/uL (3.29-11.43)
--- NOTE | 2024-02-06 15:04 | PC.PHAR ---
pt states she takes care of her own medications-pt states she takes buspar 5mg hs prn ext shows last filled 09/29/23 30d/s-pt states her clopidogrel 75mg daily was dced ext shows last filled 01/02/24 30d/s-pt states her lisinopril 2.5mg daily was put on hold ext shows last filled 01/02/24 30d/s-pt states she finished her 3 days of metolazone a while ago ext shows last filled 01/05/24 3d/s
[2024-02-06 15:19] LABS: Alanine Aminotransferase 9 U/L (0-33); Albumin Level 3.3 g/dL (3.5-5.2); Alkaline Phosphatase 158 U/L (35-105); Anion Gap 13.6 (5-19); Aspartate Amino Transferase 12 U/L (0-32); Blood Urea Nitrogen 18 mg/dL (8-23); Calcium 8.8 mg/dL (8.5-10.5); Carbon Dioxide 31 mmol/L (22-29); Chloride 97 mmol/L (98-107); Creatinine Clr Calc Pharmacy 29.4605; Globulin 2.8 g/dL (1.3-4.6); Glucose 157 mg/dL (65-115); Osmolality Calculated 291 mOsm/kg (285-295); Potassium 3.6 mmol/L (3.5-5.1); Sodium 138 mmol/L (136-145); Total Bilirubin 0.8 mg/dL (0.15-1.2); Total Protein 6.1 g/dL (6.6-8.7)
[2024-02-06 15:49] LABS: Add Urine Microscopic? NO; Charge for UA Resulting for Rev
[2024-02-06 16:00] LABS: Bilirubin Urine Neg (Negative); Blood Urine Neg (Negative); Glucose Urine UA Norm (Normal); Ketones Urine Negative (Negative); Leukocyte Esterase Urine Negative (Negative); Nitrate Urine Negative (Negative); Protein Urine Trace (Negative); Specific Gravity, Urine 1.005 (1.005-1.030); Urine Appearance Clear (CLEAR); Urine Color Yellow (Yellow); Urobilinogen Urine Norm (Negative); pH Urine 6 (5-7)
== END 2024-02-06 16:53 | disposition home or self-care (01) ==
PROVIDERS: Emergency Provider Emergency Medicine; PCP Family Medicine
DX: R39.198 Other difficulties with micturition (principal); Z79.01 Long term (current) use of anticoagulants; Z79.84 Long term (current) use of oral hypoglycemic drugs; Z79.4 Long term (current) use of insulin; Z72.0 Tobacco use; Z85.3 Personal history of malignant neoplasm of breast; J44.9 Chronic obstructive pulmonary disease, unspecified; I13.0 Hypertensive heart and chronic kidney disease with heart failure and stage 1 through stage 4 chronic kidney disease, or unspecified chronic kidney disease; E11.22 Type 2 diabetes mellitus with diabetic chronic kidney disease; N18.9 Chronic kidney disease, unspecified; I50.9 Heart failure, unspecified; Z86.73 Personal history of transient ischemic attack (TIA), and cerebral infarction without residual deficits; E78.5 Hyperlipidemia, unspecified
CPT/HCPCS: 51702; 71045; 80053; 81003; 85025; 93005; 99285

== ENCOUNTER 2024-02-16 19:04 | Emergency (ER) | payer MEDICARE, SELFPAY ==
[2024-02-16 19:10] VITALS: BP 113/56; PULSE 106; RESP 16; TEMP 36.4; O2SAT 89
--- NOTE | 2024-02-16 19:15 | XRR_ITS ---
PROCEDURE INFORMATION: Exam: XR Chest Exam date and time: 02/16/2024 7:25 PM Age: 83 years old Clinical indication: Dyspnea TECHNIQUE: Imaging protocol: Radiologic exam of the chest. Views: 1 view. COMPARISON: CR XR chest 1V portable [id number] 02/06/2024 3:22 PM FINDINGS: Tubes, catheters and devices: Clips in the right neck. Abdominal aortic endograft. Lungs: Mild right base atelectasis. The left lung is clear. Pleural spaces: Increased small right pleural effusion. Probable trace left pleural effusion. Heart/Mediastinum: Stable severe cardiomegaly. Bones/joints: Unremarkable. XR/XR chest 1V portable [id number] IMPRESSION: 1. Cardiomegaly. 2. Small right and probable trace left pleural effusions.
--- NOTE | 2024-02-16 19:18 | W.ED.SOB ---
HPI - SOB/Dyspnea General: Chief Complaint: Shortness of Breath/Dyspnea Stated Complaint: sob Time Seen by Provider: 02/16/24 19:15 History of Present Illness: HPI Narrative: 83-year-old female presents emergency department with complaints of increased shortness of breath today. She states she has had shortness of breath for the previous 3 months and feels like it is worse this afternoon. She states she chronically wears supplemental oxygen at 3 to 4 L and she is currently at 4 L today. She does have a history of COPD and CHF. She states she sees Dr. Reese her emergency doctor for her CHF. She states her lower legs have been significantly swollen for the previous 1 week. She denies chest pain dizziness or lightheaded feeling. Associated symptoms: Deny chest pain Review of Systems General: Reports: 10 or more systems reviewed and unremarkable except in HPI and below Card: Denies: chest pain Resp: Reports: dyspnea, non-productive cough and wheezing PFSH ED PFSH: Medical History Bilateral breast cancer Asthma Anxiety Acute respiratory failure with hypoxia and hypercarbia CHF (congestive heart failure) COPD (chronic obstructive pulmonary disease) Respiratory failure Paroxysmal atrial fibrillation MYRA (generalized anxiety disorder) Hypersomnia Chronic anticoagulation Atrial fib/flutter, transient Osteoporosis History of COVID-12 Aug 2021 Pneumonia Chronic kidney disease Diabetic peripheral neuropathy Anemia Carotid artery disease B12 deficiency Chronic pain CVA (cerebral vascular accident) History of nonmelanoma skin cancer Atopic dermatitis Nicotine dependence, cigarettes, with unspecified nicotine-induced disorders Seasonal allergies Renal artery stenosis Descending thoracic aortic aneurysm AAA (abdominal aortic aneurysm) Status post stent graft repair Obesity HTN (hypertension) Dyslipidemia Diabetes 1.5, managed as type 2 Surgical History History of total mastectomy of left breast 04/[address] Vo at [place], [place] History of stent insertion of renal artery History of aortic aneurysm repair S/P mastectomy (08/2009) Right modified radical mastectomy S/P cholecystectomy S/P tonsillectomy S/P hysterectomy Family History Other Stroke Social History Smoking and tobacco/nicotine status: light tobacco/nicotine user cigarettes Alcohol intake: never Substance/Drug Use: never Physical Exam Narrative: EXAM NARRATIVE: Constitutional: the patient appears well nourished and with normal development. Vital signs reviewed as documented. HENMT: Normocephalic, atraumatic. External ears normal appearance without drainage. Nose without drainage, normal appearance. Mucus membranes moist. Neck is supple, No jugular venous distension, trachea is midline, no appreciable carotid bruits. No lymphadenopathy. No meningeal signs. Flexion, extension and lateral rotation is without pain. Eyes: Pupils are equal, round, reactive to light and accommodation. No scleral icterus. Extra-ocular movement are intact. Thorax is symmetrical and with equal rise and fall with respirations. Resp: Decreased bilaterally in the bases, faint crackles noted bilaterally, mild expiratory wheezing noted.. No rhonchi at present. Cardio: Sinus tachycardia with a ventricular rate of 102 bpm,. Positive S1, S2. No appreciable murmurs, rubs or gallops. 1+ bilateral lower extremity edema. GI: Abdominal exam reveals normal bowel sounds to all quadrants. No organomegaly. No obvious palpable masses noted. No hepatomegally appreciated. Soft, non-tender to palpation. Extremity: Extremities are with 1+ bilateral lower extremity edema and both femoral and pedal pulses are 2+ and equal bilaterally. Moves all extremities well, sensation in all extremities. Neuro: Alert and oriented x4, person, place, time and situation. Cranial nerves II through XII are grossly intact, there is no focal neurological deficits that I can appreciate at present. Sensation intact to all extremities. Motor strength in the upper and lower extremities are equal and bilateral 5/5. Psych: Cooperative, calm, normal thought process, appropriate judgment. Skin: No lesions, rashes. Back: Symmetrical, no obvious deformity Course Reevaluation(s): Reevaluation #1: Patient received Lasix IV in the emergency department she states she is making significant amounts of urine and states that she already feels much better. She states her breathing feels better and is requesting to be discharged home. Time: 21:30 Vital Signs: Vital signs: Vital Signs Temperature 97.5 F L 02/16/24 19:10 Pulse Rate 102 H 02/16/24 19:42 Respiratory Rate 19 H 02/16/24 19:42 Blood Pressure 101/74 02/16/24 19:42 Pulse Oximetry 98 02/16/24 19:42 Oxygen Delivery Me thod Nasal Cannula 02/16/24 19:42 Oxygen Flow Rate 4 02/16/24 19:42 MDM - SOB/Dyspnea Medical Decision Making Physical exam completed and documented, I will obtain a CBC, CMP, chest x-ray and a urinalysis. Differential diagnosis includes community-acquired pneumonia, viral illness, acute exacerbation of chronic pulmonary disease, congestive heart failure. Patient's hemoglobin was 11 and hematocrit 35 improved in comparison from previous. Her BNP was slightly elevated at 8622 and her creatinine was 1.6. Patient did receive IV Lasix with moderate urinary output. Patient's breathing did improve. Patient's cardiac enzymes were essentially negative with no significant delta change. Patient was requesting to be discharged home when she would follow-up with her primary care provider. Medical Records I reviewed the patient's medical records. Lab Data I reviewed the patient's lab results. 02/16/24 19:02/16/24 19:27 Labs/Radiology: Radiology Impressions Chest X-Ray 02/16/24 19:15 IMPRESSION: 1. Cardiomegaly. 2. Small right and probable trace left pleural effusions. Laboratory Results WBC 5.56 10^3/uL (3.29-11.43) 02/16/24 19: RBC 3.96 10^6/uL (3.85-5.65) 02/16/24 19: Hgb 11.10 g/dL (11.27-16.99) L 02/16/24: Hct 35.8 % (36-47) L 02/16/24: MCV 90.4 fl (85-98) 02/16/24 19: MCH 28.0 pg (27-33) 02/16/24 19: MCHC 31.0 g/dL (30-55) 02/16/24: RDW 15.7 % (12.1-15.1) H 02/16/24 19: Plt Count 271 10^3/cmm (157-399) 02/16/24 19: MPV 10.4 fL (7.4-10.4) 02/16/24 19: Neut % (Auto) 57.9 % 02/16/24 19: Lymph % (Auto) 25.5 % 02/16/24 19: Whitley % (Auto) 10.6 % 02/16/24: Eos % (Auto) 5.4 % 02/16/24: Baso % (Auto) 0.4 % 02/16/24: Neut # (Auto) 3.22 10^3/uL (1.8-7.7) 02/16/24: Lymph # (Auto) 1.4 10^3/uL (0.8-4.8) 02/16/24: Whitley # (Auto) 0.6 10^3/uL (0.2-0.9) 02/16/24: Eos # (Auto) 0.3 10^3/uL (0.0-0.8) 02/16/24: Baso # (Auto) 0.0 10^3/uL (0.0-0.1) 02/16/24: Nucleated RBC % (auto) 0 % 02/16/24: Nucleated RBCs # 0.0 /100WBC 02/16/24: Sodium 145 mmol/L (136-145) 02/16/24: Potassium 4.0 mmol/L (3.5-5.1) 02/16/24: Chloride 101 mmol/L (98-107) 02/16/24: Carbon Dioxide 33 mmol/L (22-29) H 02/16/24: Anion Gap 15.0 (5-19) 02/16/24: BUN 19 mg/dL (8-23) 02/16/24 19: Creatinine 1.6 mg/dL (0.5-0.9) H 02/16/24: GFR Calculation Not Reportable 02/16/24: Glucose 147 mg/dL (65-115) H 02/16/24 Calculated Osmolality 305 mOsm/kg (285-295) H 02/16/24: Calcium 8.9 mg/dL (8.5-10.5) 02/16/24: Total Bilirubin 0.6 mg/dL (0.15-1.2) 03/25/24 19:27 AST 15 U/L (0-32) 02/16/24 19:27 ALT 11 U/L (0-33) 02/16/24 19:27 Alkaline Phosphatase 176 U/L (35-105) H 02/16/24 19:27 Troponin T Baseline 28 ng/L (0-10) H 02/16/24 19:27 Troponin T 120 Minute 28.89 ng/L (0-10) H 02/16/24 21:33 Delta Troponin T 0.89 ABS# (0-10) 02/16/24 21:33 NT-Pro-B Natriuret Pep 8622 pg/mL (0-450) H 02/16/24 19:27 Total Protein 6.1 g/dL (6.6-8.7) L 02/16/24 19:27 Albumin 3.9 g/dL (3.5-5.2) 02/16/24 19:27 Globulin 2.2 g/dL (1.3-4.6) 02/16/24 19:27 Procalcitonin 0.08 ng/mL (0-0.5) 02/16/24 19:27 All radiology interpretation(s) finalized by discharge EKG Data EKG 1: Interpretation: Initial twelve-lead EKG obtained at 1933 and reviewed at 1954 demonstrates atrial fibrillation with a ventricular rate of 98 bpm, QRS duration 157 QT 401 QTc 456 there is excessive motion artifact which makes it difficult to interpret this EKG. I have asked for a repeat EKG. EKG 2: Interpretation: Repeat/second twelve-lead EKG obtained at 2001 and reviewed at 2003 demonstrates atrial fibrillation with a ventricular rate of 95 bpm, it does demonstrate a left bundle branch block, QRS duration 155, QT 432, QTc 45. At present there does not appear to be any ST elevation or depression to demonstrate acute ischemia or infarction. Discharge Plan Discharge Patient Disposition: Home Clinical Impression: Congestive heart failure Edema Qualifiers: Edema type: generalized Qualified Code(s): R60.1 - Generalized edema Condition: Stable Prescriptions: No Action (DME) overnight oximetry See Rx Instructions .Route .MEDSUPPLY Qty: 1 0RF Rx Instructions: As directed [facility] Aerosphere 160-9-4.8 mcg/actuation HFA aerosol inhaler 2 inh inhalation BID Qty: 10.7 6RF famotidine 20 mg tablet 20 mg PO BID Qty: 180 1RF bumetanide 1 mg tablet 1 mg PO BID Qty: 60 0RF Rx Instructions: Take one in the Am and at noon ([facility]) FreeStyle [place]ell 14 Day Sensor Kit See Rx Instructions .Route Qty: 2 11RF Rx Instructions: As directed ([facility]) FreeStyle Odell 14 Day [place] Misc See Rx Instructions .Route Qty: 1 0RF Rx Instructions: As directed Eliquis 5 mg tablet 5 mg PO Q12H Qty: 180 3RF ([facility]) RSV - pre f3 See Rx Instructions .Route .MEDSUPPLY Qty: 1 0RF Rx Instructions: As directed ([facility]) blood-glucose meter Misc See Rx Instructions .Route Qty: 1 0RF Rx Instructions: As directed with testing strips ([facility]) pen needle, diabetic [TechLITE Pen Needle] 32 gauge x 5/32 needle See Rx Instructions .Route Qty: 100 0RF Rx Instructions: As directed ([facility]) breast prosthesis bilateral and bras x4 See Rx Instructions .Route .MEDSUPPLY Qty: 1 0RF Rx Instructions: As directed ([facility]) home oxygen 2l/m continuous See Rx Instructions .Route .MEDSUPPLY Qty: 1 0RF Rx Instructions: As directed ([facility]) CPAP set to 6-16 with supplies See Rx Instructions .Route .MEDSUPPLY Qty: 1 0RF Rx Instructions: As directed ([facility]) Blood Glucose Test Strip See Rx Instructions .Route Qty: 120 12RF Rx Instructions: free style test strips - test qid atorvastatin 80 mg tablet 80 mg PO BEDTIME Qty: 90 3RF oxycodone 15 mg tablet 15 mg PO Q6H PRN (Reason: pain) 30 Days Qty: 120 0RF montelukast 10 mg tablet See Rx Instructions .ROUTE .COMPLEX Qty: 90 0RF Dose Instruction: TAKE ONE TABLET BY MOUTH EVERY DAY Rx Instructions: TAKE ONE TABLET BY MOUTH EVERY DAY lisinopril 2.5 mg tablet See Rx Instructions .ROUTE .COMPLEX Qty: 90 0RF Dose Instruction: TAKE ONE TABLET BY MOUTH EVERY DAY Rx Instructions: TAKE ONE TABLET BY MOUTH EVERY DAY loratadine 10 mg tablet See Rx Instructions .ROUTE .COMPLEX Qty: 90 3RF Dose Instruction: TAKE ONE TABLET BY MOUTH EVERY DAY Rx Instructions: TAKE ONE TABLET BY MOUTH EVERY DAY fluticasone propionate [Flonase Allergy Relief] 50 mcg/actuation spray,suspension 2 spray intranasal DAILY PRN (Reason: Allergy Symptoms) Rx Instructions: administer into each nostril ondansetron 4 mg tablet,disintegrating 4 mg PO Q8H PRN (Reason: nausea and vomiting) Qty: 15 0RF diphenhydramine HCl [Benadryl] 25 mg Capsule 25 mg PO BEDTIME PRN (Reason: Allergy Symptoms) albuterol sulfate [Ventolin HFA] 90 mcg/actuation HFA aerosol inhaler 2 puff inhalation 6XD PRN (Reason: Shortness Of Breath) ipratropium-albuterol 0.5 mg-3 mg(2.5 mg base)/3 mL solution for nebulization 3 ml inhalation Q4H PRN (Reason: shortness of breath or wheezing) Qty: 180 0RF Rx Instructions: until breathing returns to target peak flow/parameters potassium chloride 10 mEq capsule, extended release 10 meq PO BID carvedilol 6.25 mg tablet 6.25 mg PO BID glipizide 5 mg tablet 5 mg PO QAM buspirone 5 mg tablet 5 mg PO BEDTIME PRN (Reason: Anxiety) amiodarone 200 mg tablet 200 mg PO QAM Lantus Solostar U-100 Insulin 100 unit/mL (3 mL) insulin pen 14 unit SUBCUT BEDTIME multivitamin Tablet 1 tab PO DAILY Discharge Orders: Discharge ED (Routine); Ordered 02/16/24 Ordered By: Wilbur Castro Referrals: Patti Irwin DO [Primary Care Provider] - Discharge Diet: Cardiac Patient Instructions: Opioid Safety, Pain Management Activity Restrictions/Additional Instructions: Activity Restrictions/Additional Instructions: Thank you for choosing [facility] for your healthcare needs today. Please realize that you were seen in the Emergency Department and that we are providing you with an emergency medical screening exam and this may not be a complete and all inclusive of all the testing and or medical work-up that you may need to determine your ailment or severity of your illness. It is very important that you follow-up as instructed with your Primary care provider or Specialist for additional evaluation and to discuss your medical treatment plan. You may return to the Emergency Department should you have concerns or if your condition changes or worsens in any way. Coding Level of Care Code ED Religion Department Chair for Betty Vela
[2024-02-16 19:36] LABS: Basophils % 0.4 %; Eosinophils # 0.3 10^3/uL (0.0-0.8); Eosinophils % 5.4 %; Hematocrit 35.8 % (36-47); Lymphocytes # 1.4 10^3/uL (0.8-4.8); Lymphocytes % 25.5 %; Mean Corpuscular Volume 90.4 fl (85-98); Mean Platelet Volume 10.4 fL (7.4-10.4); Monocytes # 0.6 10^3/uL (0.2-0.9); Monocytes % 10.6 %; Neutrophils # 3.22 10^3/uL (1.8-7.7); Neutrophils % 57.9 %; Nucleated Red Blood Cells % 0 %; Platelet Count 271 10^3/cmm (157-399); Red Blood Count 3.96 10^6/uL (3.85-5.65); Red Cell Distribution Width 15.7 % (12.1-15.1); White Blood Count 5.56 10^3/uL (3.29-11.43)
[2024-02-16 19:42] VITALS: BP 101/74; PULSE 102; RESP 19; O2SAT 98
[2024-02-16 19:59] LABS: Troponin(5th) Baseline 28 ng/L (0-10)
--- NOTE | 2024-02-16 20:02 | ECG_ITS ---
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 Measurements Intervals [place] Rate: 95 P: 0 OR: 0 QRS: -48 QRSD: 155 T: 98 QT: 432 QTc: 545 Interpretive Statements ATRIAL FIBRILLATION LEFT AXIS DEVIATION [QRS AXIS < -30] LEFT BUNDLE BRANCH BLOCK [120+ ms QRS DURATION, 80+ ms Q/S IN V1/V2, 85+ ms R IN I/aVL/V5/V6] Compared to ECG 02/16/2024 19:33:29 Left-axis deviation now present Left bundle-branch block now present Right-axis deviation no longer present Intraventricular conduction delay no longer present Electronically Signed On 02-16-2024 21:49:23 CDT by Jaxon Fernandes M.D. [id number]
[2024-02-16 20:13] LABS: NT Pro B Type Natriuretic Pept 8622 pg/mL (0-450); Procalcitonin 0.08 ng/mL (0-0.5)
[2024-02-16 20:24] LABS: Alanine Aminotransferase 11 U/L (0-33); Albumin Level 3.9 g/dL (3.5-5.2); Alkaline Phosphatase 176 U/L (35-105); Aspartate Amino Transferase 15 U/L (0-32); Blood Urea Nitrogen 19 mg/dL (8-23); Calcium 8.9 mg/dL (8.5-10.5); Carbon Dioxide 33 mmol/L (22-29); Chloride 101 mmol/L (98-107); Creatinine Clr Calc Pharmacy 27.3034; Globulin 2.2 g/dL (1.3-4.6); Glucose 147 mg/dL (65-115); Osmolality Calculated 305 mOsm/kg (285-295); Sodium 145 mmol/L (136-145); Total Bilirubin 0.6 mg/dL (0.15-1.2); Total Protein 6.1 g/dL (6.6-8.7)
[2024-02-16] MEDS: FUROsemide 10 mg/mL SDV 10mL 100 MG IVP (20:52)
--- NOTE | 2024-02-16 21:17 | ECG_ITS ---
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 Measurements Intervals [place] Rate: 98 P: 0 ME: 0 QRS: 268 QRSD: 157 T: 34 QT: 401 QTc: 513 Interpretive Statements ATRIAL FIBRILLATION RIGHT AXIS DEVIATION [QRS AXIS > 100] INTRAVENTRICULAR CONDUCTION DELAY [130+ ms QRS DURATION] Compared to ECG 02/06/2024 13:21:20 Right-axis deviation now present Indeterminate axis no longer present Electronically Signed On 02-16-2024 21:52:18 CDT by Jaxon Fernandes M.D. [id number]
[2024-02-16 22:08] LABS: Troponin 5 2HR 28.89 ng/L (0-10); Troponin 5 2HR Delta 0.89 ABS# (0-10)
--- NOTE | 2024-02-16 23:22 | PC.NURSE ---
Vitals discharge from monitor before nurse could chart. Pt vitals were WNL when nurse checked them.
== END 2024-02-16 22:32 | disposition home or self-care (01) ==
PROVIDERS: Emergency Provider Internal Medicine; PCP Family Medicine
DX: I13.0 Hypertensive heart and chronic kidney disease with heart failure and stage 1 through stage 4 chronic kidney disease, or unspecified chronic kidney disease (principal); E11.22 Type 2 diabetes mellitus with diabetic chronic kidney disease; N18.9 Chronic kidney disease, unspecified; I50.9 Heart failure, unspecified; R60.1 Generalized edema; Z79.01 Long term (current) use of anticoagulants; Z79.84 Long term (current) use of oral hypoglycemic drugs; Z79.4 Long term (current) use of insulin; F17.210 Nicotine dependence, cigarettes, uncomplicated; Z85.3 Personal history of malignant neoplasm of breast; J44.9 Chronic obstructive pulmonary disease, unspecified; Z86.73 Personal history of transient ischemic attack (TIA), and cerebral infarction without residual deficits; E78.5 Hyperlipidemia, unspecified
CPT/HCPCS: 71045; 80053; 83880; 84145; 84484; 85025; 93005; 96374; 99285; J1940

== ENCOUNTER → 2024-03-29 14:40 | Outpatient (BNVA) | payer MEDICARE, SELFPAY | PROVIDERS: PCP Family Medicine; Visit Provider Family Medicine | DX: I50.32 Chronic diastolic (congestive) heart failure (principal); D50.8 Other iron deficiency anemias; N18.4 Chronic kidney disease, stage 4 (severe); E13.9 Other specified diabetes mellitus without complications; D64.9 Anemia, unspecified | CPT/HCPCS: 80048; 80053; 83036; 83550; 84443; 85025 ==

== ENCOUNTER → 2024-04-27 10:57 | Outpatient (BNVA) | payer MEDICARE, SELFPAY | PROVIDERS: PCP Family Medicine; Visit Provider Internal Medicine Cardiovascular Disease | DX: E78.5 Hyperlipidemia, unspecified (principal); I11.0 Hypertensive heart disease with heart failure; I50.43 Acute on chronic combined systolic (congestive) and diastolic (congestive) heart failure; I70.1 Atherosclerosis of renal artery; F17.219 Nicotine dependence, cigarettes, with unspecified nicotine-induced disorders; Z98.890 Other specified postprocedural states; Z86.79 Personal history of other diseases of the circulatory system; I65.23 Occlusion and stenosis of bilateral carotid arteries; I48.0 Paroxysmal atrial fibrillation; I47.29 Other ventricular tachycardia; E66.9 Obesity, unspecified; Z68.30 Body mass index [BMI] 30.0-30.9, adult; D64.9 Anemia, unspecified; C50.919 Malignant neoplasm of unspecified site of unspecified female breast; J43.1 Panlobular emphysema; G47.33 Obstructive sleep apnea (adult) (pediatric); Z79.01 Long term (current) use of anticoagulants | CPT/HCPCS: 99214 ==

== ENCOUNTER 2024-04-28 13:17 | Oncology outpatient (recurring) (ONCR) | payer MEDICARE, SELFPAY ==
[2024-04-28 13:50] LABS: Basophils % 0.2 %; Eosinophils # 0.2 10^3/uL (0.0-0.8); Eosinophils % 3.5 %; Lymphocytes # 1.3 10^3/uL (0.8-4.8); Lymphocytes % 21.8 %; Mean Corpuscular HGB Conc 31.5 g/dL (30-55); Mean Corpuscular Hemoglobin 26.8 pg (27-33); Mean Corpuscular Volume 84.9 fl (85-98); Mean Platelet Volume 10.4 fL (7.4-10.4); Monocytes # 0.5 10^3/uL (0.2-0.9); Monocytes % 7.9 %; Neutrophils # 3.95 10^3/uL (1.8-7.7); Neutrophils % 66.4 %; Nucleated Red Blood Cells % 0 %; Platelet Count 322 10^3/cmm (157-399); Red Blood Count 4.71 10^6/uL (3.85-5.65); Red Cell Distribution Width 17.3 % (12.1-15.1); White Blood Count 5.95 10^3/uL (3.29-11.43)
[2024-04-28 14:32] LABS: Alanine Aminotransferase 8 U/L (0-33); Albumin Level 3.6 g/dL (3.5-5.2); Alkaline Phosphatase 178 U/L (35-105); Anion Gap 13.1 (5-19); Aspartate Amino Transferase 12 U/L (0-32); Blood Urea Nitrogen 24 mg/dL (8-23); Calcium 8.5 mg/dL (8.5-10.5); Carbon Dioxide 34 mmol/L (22-29); Chloride 100 mmol/L (98-107); Globulin 3.2 g/dL (1.3-4.6); Glucose 167 mg/dL (65-115); Osmolality Calculated 304 mOsm/kg (285-295); Potassium 4.1 mmol/L (3.5-5.1); Sodium 143 mmol/L (136-145); Total Bilirubin 0.7 mg/dL (0.15-1.2); Total Protein 6.8 g/dL (6.6-8.7)
[2024-04-28 18:41] LABS: Ferritin 28 ng/mL (15-150); Iron 38 ug/dL (37-145); Percent Saturation 10.7 % (20-50); Total Iron Binding Capacity 355 mcg/dl; Unsaturated Iron Binding 317 ug/dL (112-347)
[2024-04-28 21:57] LABS: Estmated Average Glucose 151; Hemoglobin A1C 6.9 % (4.0-6.0)
== END 2024-05-23 23:59 | disposition home or self-care (01) ==
PROVIDERS: Nurse Practitioner Family; PCP Family Medicine; Visit Provider Internal Medicine Medical Oncology
DX: D50.9 Iron deficiency anemia, unspecified; Z90.13 Acquired absence of bilateral breasts and nipples; Z85.3 Personal history of malignant neoplasm of breast; Z08 Encounter for follow-up examination after completed treatment for malignant neoplasm; E13.9 Other specified diabetes mellitus without complications; Z79.4 Long term (current) use of insulin; F17.210 Nicotine dependence, cigarettes, uncomplicated
CPT/HCPCS: 36415; 80053; 82728; 83036; 83540; 83550; 85025; 99213

== ENCOUNTER 2024-07-04 17:27 | Emergency (ER) | payer MEDICARE, SELFPAY ==
[2024-07-04] VITALS (7 sets, daily range): BP systolic 104–145; BP diastolic 57–94; PULSE 69–101; RESP 12–29; TEMP 36.4; O2SAT 95–100
--- NOTE | 2024-07-04 17:35 | ECG_ITS ---
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 Measurements Intervals [place] Rate: 85 P: 0 OR: 0 QRS: 146 QRSD: 158 T: 43 QT: 431 QTc: 515 Interpretive Statements ATRIAL FIBRILLATION RIGHT AXIS DEVIATION [QRS AXIS > 100] INTRAVENTRICULAR CONDUCTION DELAY [130+ ms QRS DURATION] Compared to ECG 02/16/2024 20:02:42 Right-axis deviation now present Intraventricular conduction delay now present Left-axis deviation no longer present Left bundle-branch block no longer present Electronically Signed On 07-04-2024 19:41:07 CDT by Jaxon Fernandes M.D. [id number]
--- NOTE | 2024-07-04 17:35 | XRR_ITS ---
PROCEDURE INFORMATION: Exam: XR Chest Exam date and time: 07/04/2024 6:11 PM Age: 83 years old Clinical indication: Left-sided; Patient HX: C/O left sided chest pain; Additional info: Cp TECHNIQUE: Imaging protocol: Radiologic exam of the chest. Views: 1 view. COMPARISON: CR XR chest 1V portable [id number] 02/16/2024 7:25 PM FINDINGS: Lungs: No consolidation. Pleural spaces: No pleural effusion or pneumothorax. Heart/Mediastinum: The cardiomediastinal silhouette is moderately enlarged. Vasculature: Atherosclerotic calcifications of the aorta are noted. Bones/joints: No acute osseous abnormalities are seen. XR/XR chest 1V portable [id number] IMPRESSION: No acute cardiopulmonary disease.
--- NOTE | 2024-07-04 17:46 | ED_ITS ---
HPI - Chest Pain 2 General: Chief Complaint: Chest Pain Stated Complaint: chest pain Time Seen by Provider: 07/04/24 17:43 Source: patient Mode of arrival: ambulatory Limitations: no limitations History of Present Illness: 83-year-old female states been having so me intermittent chest pains throughout the day. Pressure type pain denies any radiation symptoms slight nausea she denies any severe shortness of breath she is on oxygen chronically. She has a history of CHF. States she taken nitro at home and her pain did improve pains of 1 out of 10 currently Associated symptoms: Deny abdominal pain, dyspnea, fever(s), nausea or vomiting Related Data Home Medications Medication Instructions Recorded Confirmed fluticasone propionate 50 2 spray intranasal DAILY PRN 06/27/22 06/08/24 mcg/actuation nasal Allergy Symptoms spray,suspension (Flonase Allergy Relief) albuterol sulfate 90 mcg/actuation 2 puff inhalation 6XD PRN 02/19/23 06/08/24 aerosol inhaler (Ventolin HFA) Shortness Of Breath diphenhydramine HCl 25 mg capsule 25 mg PO BEDTIME PRN Allergy 02/19/23 06/08/24 (Benadryl) Symptoms amiodarone 200 mg tablet 200 mg PO QAM 02/06/24 06/08/24 buspirone 5 mg tablet 5 mg PO BEDTIME PRN Anxiety 02/06/24 06/08/24 multivitamin 1 tab PO DAILY 02/06/24 06/08/24 Previous Rx's Medication Instructions Recorded flash glucose scanning reader #1 ea 03/04/22 (FreeStyle Odell 14 Day Burton) flash glucose sensor (FreeStyle #2 ea 03/04/22 Odell 14 Day Sensor kit) blood-glucose meter #1 ea 03/06/22 pen needle, diabetic 32 gauge x #100 ea 04/12/22 (TechLITE Pen Needle) ondansetron 4 mg disintegrating 4 mg PO Q8H PRN nausea and 06/27/22 tablet vomiting #15 tabs overnight oximetry #1 ea 12/17/22 breast prosthesis bilateral and #1 ea 02/05/23 bras x4 ipratropium 0.5 mg-albuterol 3 mg 3 ml inhalation Q4H PRN shortness 02/21/23 (2.5 mg base)/3 mL nebulization of breath or wheezing #180 mL soln home oxygen 2l/m continuous #1 ea 06/04/23 famotidine 20 mg tablet 20 mg PO BID #180 tabs 09/10/23 CPAP set to 6-16 with supplies #1 ea 09/15/23 RSV - pre f3 #1 ea 10/09/23 apixaban 5 mg tablet (Eliquis) 5 mg PO Q12H #180 tabs 10/09/23 blood sugar diagnostic (Blood #120 ea 10/31/23 Glucose Test strips) atorvastatin 80 mg tablet 80 mg PO BEDTIME #90 tabs 01/05/24 loratadine 10 mg tablet See Rx Instructions .Route 02/17/24 .COMPLEX #90 tabs Inogen portable oxygen device and #1 ea 02/19/24 supplies budesonide 160 mcg-glycopyr 9 2 inh inhalation BID #10.7 grams 02/19/24 mcg-formot 4.8 mcg/actuation HFA inhaler (Breztri Aerosphere) torsemide 20 mg tablet See Rx Instructions PO DAILY #60 03/31/24 tabs carvedilol 6.25 mg tablet See Rx Instructions .Route 05/06/24 .COMPLEX #180 tabs glipizide 5 mg tablet See Rx Instructions .Route 05/06/24 .COMPLEX #90 tabs insulin glargine 100 unit/mL (3 See Rx Instructions .Route 05/13/24 mL) subcutaneous pen (Lantus .COMPLEX #15 mL Solostar U-100 Insulin) oxycodone 15 mg tablet 15 mg PO Q6H PRN pain 30 days #120 06/02/24 tabs lisinopril 2.5 mg tablet See Rx Instructions .Route 06/22/24 .COMPLEX #90 tabs montelukast 10 mg tablet See Rx Instructions .Route 06/22/24 .COMPLEX #90 tabs potassium chloride 10 mEq See Rx Instructions .Route 06/23/24 capsule,extended release .COMPLEX #180 caps Allergies Allergy/AdvReac Type Severity Reaction Status Date / Time adhesive tape Allergy Unknown Unknown Verified 07/04/24 17:37 bacitracin Allergy Unknown Unknown Verified 07/04/24 17:37 [From Neosporin ([id number])] codeine Allergy Unknown Unknown Verified 07/04/24 17:37 doxycycline Allergy Unknown Unknown Verified 07/04/24 17:37 neomycin Allergy Unknown Unknown Verified 07/04/24 17:37 [From Neosporin ([id number])] penicillamine Allergy Unknown Unknown Verified 07/04/24 17:37 Penicillins Allergy Unknown Unknown Verified 07/04/24 17:37 polymyxin B Allergy Unknown Unknown Verified 07/04/24 17:37 [From Neosporin ([id number])] prochlorperazine Allergy Unknown Unknown Verified 07/04/24 17:37 [From Compazine] Sulfa (Sulfonamide Allergy Unknown Unknown Verified 07/04/24 17:37 Antibiotics) diltiazem Allergy ALGY-Difficulty Verified 07/04/24 17:37 Breathing Review of Systems 2 Const: Denies: fever(s), chills, body aches or change in appetite ENMT: Denies: throat pain or dental pain Card: Reports: chest pain Resp: Denies: dyspnea GI: Denies: abdominal pain, nausea, vomiting or diarrhea Musc: Denies: neck pain or back pain Skin/Breast: Denies: rash Neuro: Denies: headache(s) PFSH ED 2 PFSH: Medical History Heart failure with mildly reduced ejection fraction Nicotine dependence, cigarettes, with unspecified nicotine-induced disorders Bilateral breast cancer Asthma Anxiety Acute respiratory failure with hypoxia and hypercarbia CHF (congestive heart failure) COPD (chronic obstructive pulmonary disease) Respiratory failure Paroxysmal atrial fibrillation MYRA (generalized anxiety disorder) Hypersomnia Chronic anticoagulation Atrial fib/flutter, transient Osteoporosis History of COVID-12 Aug 2021 Pneumonia Chronic kidney disease Diabetic peripheral neuropathy Anemia Carotid artery disease B12 deficiency Chronic pain CVA (cerebral vascular accident) History of nonmelanoma skin cancer Atopic dermatitis Seasonal allergies Renal artery stenosis Descending thoracic aortic aneurysm AAA (abdominal aortic aneurysm) Status post stent graft repair Obesity HTN (hypertension) Dyslipidemia Diabetes 1.5, managed as type 2 Surgical History History of total mastectomy of left breast 04/[address] Vo at [place], [place] History of stent insertion of renal artery History of aortic aneurysm repair S/P mastectomy (08/2009) Right modified radical mastectomy S/P cholecystectomy S/P tonsillectomy S/P hysterectomy Family History Other Stroke Social History Smoking and tobacco/nicotine status: current some day tobacco/nicotine user cigarettes Packs smoked per day: 0.5 Years cigarettes smoked: 66 Alcohol intake: never Substance/Drug Use: never Physical Exam 2 Const: COMMON NORMALS: no acute distress, patient oriented x3 and healthy appearing HENMT: COMMON NORMALS: normocephalic and atraumatic HEAD & SCALP: n ormocephalic and atraumatic Neck/C-Spine: COMMON NORMALS: full ROM and supple Chest: COMMONS NORMALS: normal inspection of the chest Resp: COMMON NORMALS: normal respiratory effort, No retractions, No use of accessory muscles and clear to auscultation bilaterally AUSCULTATION: clear to auscultation bilaterally Cardio: COMMON NORMALS: regular rate and No murmurs present (Cardio) RATE: regular rate RHYTHM: abnormal rhythm irregularly irregular GI: COMMON NORMALS: Normal to inspection, nondistended, normoactive bowel sounds present, Soft to palpation, non-tender and no masses PALPATION: Yes Soft to palpation Extremity: COMMON NORMALS: normal to inspection and full ROM Neuro: COMMON NORMALS: patient oriented x3, moves all extremities and no focal motor deficits Psych: COMMON NORMALS: mental status grossly normal, Normal thought process present and cooperative THOUGHT PROCESS: Normal thought process present Skin: COMMON NORMALS: no rashes or lesions noted and no wounds GENERAL SKIN EXAM: no rashes or lesions noted Course 2 Vital Signs: Vital signs: Vital Signs Temperature 97.5 F L 07/04/24 17:33 Pulse Rate 82 07/04/24 18:48 Respiratory Rate 18 07/04/24 17:33 Blood Pressure 105/58 07/04/24 18:48 Pulse Oximetry 99 07/04/24 18:48 Oxygen Delivery Me thod Room Air 07/04/24 18:48 Oxygen Flow Rate 4 07/04/24 17:33 MDM - Chest Pain Medical Decision Making Patient presents for chest pain that atypical in nature she has been chest pain- free here troponin 2-hour had no change EKGs show A-fib with no other changes. No signs of dissection or pulmonary embolism patient stable for discharge follow-up PCP return if worsening. Medical Records I reviewed the patient's medical records. Lab Data I reviewed the patient's lab results. 07/04/24 17:55 07/04/24 17:55 Radiology Impressions Chest X-Ray 07/04/24 17:35 IMPRESSION: No acute cardiopulmonary disease. Laboratory Results WBC 6.46 10^3/uL (3.29-11.43) 07/04/24 17:55 RBC 3.75 10^6/uL (3.85-5.65) L 07/04/24 17:55 Hgb 10.30 g/dL (11.27-16.99) L 07/04/24 17:55 Hct 33.6 % (36-47) L 07/04/24 17:55 MCV 89.6 fl (85-98) 07/04/24 17:55 MCH 27.5 pg (27-33) 07/04/24 17:55 MCHC 30.7 g/dL (30-55) 07/04/24 17:55 RDW 19.3 % (12.1-15.1) H 07/04/24 17:55 Plt Count 275 10^3/cmm (157-399) 07/04/24 17:55 MPV 10.1 fL (7.4-10.4) 07/04/24 17:55 Neut % (Auto) 61.8 % 07/04/24 17:55 Lymph % (Auto) 19.3 % 07/04/24 17:55 [place] % (Auto) 11.3 % 07/04/24 17:55 Eos % (Auto) 7.1 % 07/04/24 17:55 Baso % (Auto) 0.2 % 07/04/24 17:55 Neut # (Auto) 3.99 10^3/uL (1.8-7.7) 07/04/24 17:55 Lymph # (Auto) 1.3 10^3/uL (0.8-4.8) 07/04/24 17:55 [place] # (Auto) 0.7 10^3/uL (0.2-0.9) 07/04/24 17:55 Eos # (Auto) 0.5 10^3/uL (0.0-0.8) 07/04/24 17:55 Baso # (Auto) 0.0 10^3/uL (0.0-0.1) 07/04/24 17:55 Nucleated RBC % (auto) 0 % 07/04/24 17:55 Nucleated RBCs # 0.0 /100WBC 07/04/24 17:55 PT 17.00 SECONDS (12.1-14.9) H 07/04/24 17:55 INR 1.33 (0.8-1.2) H 07/04/24 17:55 Sodium 140 mmol/L (136-145) 07/04/24 17:55 Potassium 3.4 mmol/L (3.5-5.1) L 07/04/24 17:55 Chloride 96 mmol/L (98-107) L 07/04/24 17:55 Carbon Dioxide 33 mmol/L (22-29) H 07/04/24 17:55 Anion Gap 14.4 (5-19) 07/04/24 17:55 BUN 18 mg/dL (8-23) 07/04/24 17:55 Creatinine 1.5 mg/dL (0.5-0.9) H 07/04/24 17:55 GFR Calculation Not Reportable 07/04/24 17:55 Glucose 69 mg/dL (65-115) 07/04/24 17:55 Calculated Osmolality 290 mOsm/kg (285-295) 07/04/24 17:55 Calcium 8.7 mg/dL (8.5-10.5) 07/04/24 17:55 Total Bilirubin 0.9 mg/dL (0.15-1.2) 07/04/24 17:55 AST 11 U/L (0-32) 07/04/24 17:55 ALT 9 U/L (0-33) 07/04/24 17:55 Alkaline Phosphatase 175 U/L (35-105) H 07/04/24 17:55 Troponin T Baseline 25 ng/L (0-10) H 07/04/24 17:55 Troponin T 120 Minute 25.44 ng/L (0-10) H 07/04/24 19:30 Delta Troponin T 0.44 ABS# (0-10) 07/04/24 19:30 Total Protein 6.5 g/dL (6.6-8.7) L 07/04/24 17:55 Albumin 3.5 g/dL (3.5-5.2) 07/04/24 17:55 Globulin 3.0 g/dL (1.3-4.6) 07/04/24 17:55 Lipase 15 U/L (13-60) 07/04/24 17:55 All radiology interpretation(s) finalized by discharge EKG Data EKG 1: I personally reviewed and interpreted this EKG as follows: EKG interpretation date: 07/04/24 EKG interpretation time: 17:26 Interpretation: afib hr [address] elevation qrs 158 qtc 474 Discharge Plan Discharge Patient Disposition: Home Clinical Impression: Chest pain Condition: Stable Prescriptions: No Action (DME) overnight oximetry See Rx Instructions .Route .MEDSUPPLY Qty: 1 0RF Rx Instructions: As directed famotidine 20 mg tablet 20 mg PO BID Qty: 180 1RF Breztri Aerosphere 160-9-4.8 mcg/actuation HFA aerosol inhaler 2 inh inhalation BID Qty: 10.7 6RF (DME) Inogen portable oxygen device and supplies See Rx Instructions .Route .MEDSUPPLY Qty: 1 0RF Rx Instructions: As directed (DME) FreeStyle Odell 14 Day Sensor Kit See Rx Instructions .Route Qty: 2 11RF Rx Instructions: As directed (DME) FreeStyle Odell 14 Day Burton Misc See Rx Instructions .Route Qty: 1 0RF Rx Instructions: As directed Eliquis 5 mg tablet 5 mg PO Q12H Qty: 180 3RF (DME) RSV - pre f3 See Rx Instructions .Route .MEDSUPPLY Qty: 1 0RF Rx Instructions: As directed (DME) blood-glucose meter Misc See Rx Instructions .Route Qty: 1 0RF Rx Instructions: As directed with testing strips (DME) pen needle, diabetic [TechLITE Pen Needle] 32 gauge x 5/32 needle See Rx Instructions .Route Qty: 100 0RF Rx Instructions: As directed (DME) breast prosthesis bilateral and bras x4 See Rx Instructions .Route .MEDSUPPLY Qty: 1 0RF Rx Instructions: As directed (DME) home oxygen 2l/m continuous See Rx Instructions .Route .MEDSUPPLY Qty: 1 0RF Rx Instructions: As directed (DME) CPAP set to 6-16 with supplies See Rx Instructions .Route .MEDSUPPLY Qty: 1 0RF Rx Instructions: As directed ([facility] [place]) Blood Glucose Test Strip See Rx Instructions .Route Qty: 120 12RF Rx Instructions: free style test strips - test qid atorvastatin 80 mg tablet 80 mg PO BEDTIME Qty: 90 3RF loratadine 10 mg tablet See Rx Instructions .ROUTE .COMPLEX Qty: 90 3RF Dose Instruction: TAKE ONE TABLET BY MOUTH EVERY DAY Rx Instructions: TAKE ONE TABLET BY MOUTH EVERY DAY torsemide 20 mg tablet See Rx Instructions PO DAILY Qty: 60 2RF Rx Instructions: 1-2 pills po Q am carvedilol 6.25 mg tablet See Rx Instructions .ROUTE .COMPLEX Qty: 180 0RF Dose Instruction: TAKE ONE TABLET BY MOUTH TWICE DAILY Rx Instructions: TAKE ONE TABLET BY MOUTH TWICE DAILY glipizide 5 mg tablet See Rx Instructions .ROUTE .COMPLEX Qty: 90 1RF Dose Instruction: TAKE ONE TABLET BY MOUTH EVERY DAY Rx Instructions: TAKE ONE TABLET BY MOUTH EVERY DAY Lantus Solostar U-100 Insulin 100 unit/mL (3 mL) insulin pen See Rx Instructions .ROUTE .COMPLEX Qty: 15 0RF Dose Instruction: inject 14 units UNDER THE SKIN ONCE DAILY Rx Instructions: inject 14 units UNDER THE SKIN ONCE DAILY oxycodone 15 mg tablet 15 mg PO Q6H PRN (Reason: pain) 30 Days Qty: 120 0RF lisinopril 2.5 mg tablet See Rx Instructions .ROUTE .COMPLEX Qty: 90 0RF Dose Instruction: TAKE ONE TABLET BY MOUTH EVERY DAY Rx Instructions: TAKE ONE TABLET BY MOUTH EVERY DAY montelukast 10 mg tablet See Rx Instructions .ROUTE .COMPLEX Qty: 90 0RF Dose Instruction: TAKE ONE TABLET BY MOUTH EVERY DAY Rx Instructions: TAKE ONE TABLET BY MOUTH EVERY DAY potassium chloride 10 mEq capsule, extended release See Rx Instructions .ROUTE .COMPLEX Qty: 180 0RF Dose Instruction: TAKE ONE CAPSULE BY MOUTH TWICE DAILY Rx Instructions: TAKE ONE CAPSULE BY MOUTH TWICE DAILY fluticasone propionate [Flonase Allergy Relief] 50 mcg/actuation spray,suspension 2 spray intranasal DAILY PRN (Reason: Allergy Symptoms) Rx Instructions: administer into each nostril ondansetron 4 mg tablet,disintegrating 4 mg PO Q8H PRN (Reason: nausea and vomiting) Qty: 15 0RF diphenhydramine HCl [Benadryl] 25 mg Capsule 25 mg PO BEDTIME PRN (Reason: Allergy Symptoms) albuterol sulfate [Ventolin HFA] 90 mcg/actuation HFA aerosol inhaler 2 puff inhalation 6XD PRN (Reason: Shortness Of Breath) ipratropium-albuterol 0.5 mg-3 mg(2.5 mg base)/3 mL solution for nebulization 3 ml inhalation Q4H PRN (Reason: shortness of breath or wheezing) Qty: 180 0RF Rx Instructions: until breathing returns to target peak flow/parameters buspirone 5 mg tablet 5 mg PO BEDTIME PRN (Reason: Anxiety) amiodarone 200 mg tablet 200 mg PO QAM multivitamin Tablet 1 tab PO DAILY Discharge Orders: Discharge ED (Routine); Ordered 07/04/24 Ordered By: Paty Mosqueda Referrals: Kofi Lpoez MD [Primary Care Provider] - 4-7 days Discharge Diet: Advance as tolerated Discharge Activity: Resume usual activity Patient Instructions: Chest Pain (ED) Coding Level of Care Code ED Manager Provider Relations for Betty Vela
[2024-07-04] MEDS: aspirin 81 mg Chew Tablet 324 MG PO (17:53)
[2024-07-04 18:04] LABS: Basophils % 0.2 %; Eosinophils # 0.5 10^3/uL (0.0-0.8); Eosinophils % 7.1 %; Hematocrit 33.6 % (36-47); Lymphocytes # 1.3 10^3/uL (0.8-4.8); Lymphocytes % 19.3 %; Mean Corpuscular HGB Conc 30.7 g/dL (30-55); Mean Corpuscular Hemoglobin 27.5 pg (27-33); Mean Corpuscular Volume 89.6 fl (85-98); Mean Platelet Volume 10.1 fL (7.4-10.4); Monocytes # 0.7 10^3/uL (0.2-0.9); Monocytes % 11.3 %; Neutrophils # 3.99 10^3/uL (1.8-7.7); Neutrophils % 61.8 %; Nucleated Red Blood Cells % 0 %; Platelet Count 275 10^3/cmm (157-399); Red Blood Count 3.75 10^6/uL (3.85-5.65); Red Cell Distribution Width 19.3 % (12.1-15.1); White Blood Count 6.46 10^3/uL (3.29-11.43)
[2024-07-04 18:18] LABS: INR 1.33 (0.8-1.2)
[2024-07-04 18:22] LABS: Alanine Aminotransferase 9 U/L (0-33); Albumin Level 3.5 g/dL (3.5-5.2); Alkaline Phosphatase 175 U/L (35-105); Anion Gap 14.4 (5-19); Aspartate Amino Transferase 11 U/L (0-32); Blood Urea Nitrogen 18 mg/dL (8-23); Calcium 8.7 mg/dL (8.5-10.5); Carbon Dioxide 33 mmol/L (22-29); Chloride 96 mmol/L (98-107); Glucose 69 mg/dL (65-115); Lipase 15 U/L (13-60); Osmolality Calculated 290 mOsm/kg (285-295); Potassium 3.4 mmol/L (3.5-5.1); Sodium 140 mmol/L (136-145); Total Bilirubin 0.9 mg/dL (0.15-1.2); Total Protein 6.5 g/dL (6.6-8.7)
[2024-07-04 18:23] LABS: Troponin(5th) Baseline 25 ng/L (0-10)
[2024-07-04 20:02] LABS: Troponin 5 2HR 25.44 ng/L (0-10); Troponin 5 2HR Delta 0.44 ABS# (0-10)
--- NOTE | 2024-07-04 23:35 | ECG_ITS ---
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 Measurements Intervals [place] Rate: 77 P: 0 HI: 0 QRS: 154 QRSD: 157 T: 72 QT: 473 QTc: 538 Interpretive Statements ATRIAL FIBRILLATION RIGHT AXIS DEVIATION [QRS AXIS > 100] INTRAVENTRICULAR CONDUCTION DELAY [130+ ms QRS DURATION] Electronically Signed On 07-06-2024 7:43:12 CDT by Jaxon Fernandes M.D. [email or web address]
== END 2024-07-04 20:35 | disposition home or self-care (01) ==
PROVIDERS: Emergency Provider Emergency Medicine; PCP Family Medicine
DX: R07.9 Chest pain, unspecified (principal); Z79.01 Long term (current) use of anticoagulants; Z79.84 Long term (current) use of oral hypoglycemic drugs; Z79.4 Long term (current) use of insulin; I48.91 Unspecified atrial fibrillation; F17.210 Nicotine dependence, cigarettes, uncomplicated; Z85.3 Personal history of malignant neoplasm of breast; J44.9 Chronic obstructive pulmonary disease, unspecified; I13.0 Hypertensive heart and chronic kidney disease with heart failure and stage 1 through stage 4 chronic kidney disease, or unspecified chronic kidney disease; E13.22 Other specified diabetes mellitus with diabetic chronic kidney disease; N18.9 Chronic kidney disease, unspecified; I50.9 Heart failure, unspecified; Z86.73 Personal history of transient ischemic attack (TIA), and cerebral infarction without residual deficits; E78.5 Hyperlipidemia, unspecified
CPT/HCPCS: 71045; 80053; 83690; 84484; 85025; 85610; 93005; 99285

== ENCOUNTER 2024-07-12 14:00 | Oncology outpatient (recurring) (ONCR) | payer MEDICARE, SELFPAY ==
[2024-06-28 14:10] VITALS: BP 158/66; PULSE 75; RESP 16; TEMP 36.3; O2SAT 95
[2024-06-28] MEDS: sodium chloride 0.9% 250 ML 75 ML IV (14:24)
[2024-06-28] MEDS: iron sucrose 200 MG in sodium chloride 0.9% (100 ml) 100 ML 220 MG IV (14:24)
[2024-06-30 14:01] VITALS: BP 102/56; PULSE 75; RESP 18; TEMP 36.8; O2SAT 94
[2024-06-30] MEDS: iron sucrose 200 MG in sodium chloride 0.9% (100 ml) 100 ML 220 MG IV (14:14)
[2024-06-30 14:49] VITALS: BP 89/57; PULSE 83; RESP 18; TEMP 36.3; O2SAT 96
[2024-06-30 15:00] VITALS: BP 106/52
[2024-07-05] MEDS: iron sucrose 200 MG in sodium chloride 0.9% (100 ml) 100 ML 220 MG IV (14:45)
[2024-07-05] MEDS: sodium chloride 0.9% 250 ML 75 ML IV (14:46)
[2024-07-05 15:32] VITALS: BP 136/81; PULSE 62; RESP 18; TEMP 36.2; O2SAT 98
[2024-07-07 14:34] VITALS: BP 119/63; PULSE 81; RESP 18; TEMP 36.4; O2SAT 99
[2024-07-07] MEDS: iron sucrose 200 MG in sodium chloride 0.9% (100 ml) 100 ML 220 MG IV (14:45)
[2024-07-07 15:29] VITALS: BP 118/73; PULSE 105; RESP 18; TEMP 36.1; O2SAT 96
[2024-07-12 14:41] VITALS: BP 112/65; PULSE 109; RESP 22; TEMP 36.8; O2SAT 98
[2024-07-12] MEDS: iron sucrose 200 MG in sodium chloride 0.9% (100 ml) 100 ML 220 MG IV (14:53)
[2024-07-12 15:27] VITALS: BP 114/71; PULSE 78; RESP 16; TEMP 36.8; O2SAT 98
== END 2024-07-24 23:59 | disposition home or self-care (01) ==
PROVIDERS: PCP Family Medicine; Visit Provider Internal Medicine Medical Oncology
DX: Z08 Encounter for follow-up examination after completed treatment for malignant neoplasm (principal); D50.9 Iron deficiency anemia, unspecified; Z90.13 Acquired absence of bilateral breasts and nipples; Z85.3 Personal history of malignant neoplasm of breast; E13.9 Other specified diabetes mellitus without complications; Z79.4 Long term (current) use of insulin; F17.210 Nicotine dependence, cigarettes, uncomplicated; D50.8 Other iron deficiency anemias; C50.812 Malignant neoplasm of overlapping sites of left female breast; C50.919 Malignant neoplasm of unspecified site of unspecified female breast; C50.411 Malignant neoplasm of upper-outer quadrant of right female breast; Z79.899 Other long term (current) drug therapy; K31.84 Gastroparesis; G89.29 Other chronic pain
CPT/HCPCS: 96365; J1756; J7050

== ENCOUNTER 2024-07-14 09:31 | Emergency (ER) | payer MEDICARE, SELFPAY ==
[2024-07-14 09:40] VITALS: BP 104/61; PULSE 78; RESP 20; TEMP 36.4; O2SAT 99; BMI 30.2
--- NOTE | 2024-07-14 09:48 | XRR_ITS ---
PROCEDURE INFORMATION: Exam: XR Left Ankle Exam date and time: 07/14/2024 9:56 AM Age: 83 years old Clinical indication: Injury or trauma; Blunt trauma; Injury date: 07/14/24; Patient HX: Pain in the left ankle and right hand after slipping and falling this morning. ; Additional info: Fall, ankle pain TECHNIQUE: Imaging protocol: Radiologic exam of the left ankle. Views: 3 or more views. Total images: 3 COMPARISON: NM bone scan whole body* [id number] 08/13/2017 8:12 AM FINDINGS: Bones/joints: No widening of the ankle mortise. No acute fracture or dislocation identified. Sclerotically demarcated density consistent with chronic avulsion fracture at the dorsum of the distal talus. Bidirectional calcaneal enthesophyte. Soft tissues: Moderate lower extremity edema particularly at the ankle. Moderate soft tissue swelling of the forefoot. XR/XR ankle LT min 3V* [id number] IMPRESSION: Moderate soft tissue swelling but no acute fracture or dislocation identified.
--- NOTE | 2024-07-14 09:48 | XRR_ITS ---
PROCEDURE INFORMATION: Exam: XR Right Hand Exam date and time: 07/14/2024 9:56 AM Age: 83 years old Clinical indication: Injury or trauma; Blunt trauma (contusions or hematomas); Injury date: 07/14/24; Injury details: Pain in the left ankle and right hand after slipping and falling this morning. ; Additional info: Fall, hand pain TECHNIQUE: Imaging protocol: Radiologic exam of the right hand. Views: 3 or more views. Total images: 3 COMPARISON: None relevant FINDINGS: Bones/joints: Moderate degenerative change in the 1st metacarpal-carpal joint. Degenerative change present within several interphalangeal joints. There is no acute fracture or dislocation identified. Soft tissues: No acute soft tissue abnormality identified. XR/XR hand RT min 3V* [id number] IMPRESSION: No acute fracture or dislocation evident.
--- NOTE | 2024-07-14 09:50 | ED_ITS ---
HPI - Fall General: Chief Complaint: Fall Stated Complaint: fall Time Seen by Provider: 07/14/24 09:46 History of Present Illness: 83-year-old female with history of atria l fibrillation on Eliquis who tripped and fell this morning and has pain in her left ankle and her right hand. She has bruising on the dorsal ulnar side of her hand. She has some mild swelling and pain in her left ankle. No deformities. She did not hit her head. No loss of consciousness. No altered mental status. No focal motor deficits. No nausea or vomiting. No chest pain. No shortness of breath. No abdominal pain. Related Data Home Medications Medication Instructions Recorded Confirmed fluticasone propionate 50 2 spray intranasal DAILY PRN 06/27/22 07/14/24 mcg/actuation nasal Allergy Symptoms spray,suspension (Flonase Allergy Relief) albuterol sulfate 90 mcg/actuation 2 puff inhalation 6XD PRN 02/19/23 07/14/24 aerosol inhaler (Ventolin HFA) Shortness Of Breath diphenhydramine HCl 25 mg capsule 25 mg PO BEDTIME PRN Allergy 02/19/23 07/14/24 (Benadryl) Symptoms amiodarone 200 mg tablet 200 mg PO QAM 02/06/24 07/14/24 buspirone 5 mg tablet 5 mg PO BEDTIME PRN Anxiety 02/06/24 07/14/24 multivitamin 1 tab PO DAILY 02/06/24 07/14/24 carvedilol 6.25 mg tablet 6.25 mg PO BID 07/14/24 07/14/24 glipizide 5 mg tablet 5 mg PO DAILY 07/14/24 07/14/24 insulin glargine 100 unit/mL (3 14 unit SUBCUT DAILY 07/14/24 07/14/24 mL) subcutaneous pen (Lantus Solostar U-100 Insulin) lisinopril 2.5 mg tablet 2.5 mg PO DAILY 07/14/24 07/14/24 loratadine 10 mg tablet 10 mg PO DAILY 07/14/24 07/14/24 montelukast 10 mg tablet 10 mg PO DAILY 07/14/24 07/14/24 potassium chloride 10 mEq 10 meq PO BID 07/14/24 07/14/24 capsule,extended release torsemide 20 mg tablet 20 - 40 mg PO QAM 07/14/24 07/14/24 Previous Rx's Medication Instructions Recorded flash glucose scanning reader #1 ea 03/04/22 (FreeStyle Odell 14 Day Matthews) flash glucose sensor (FreeStyle #2 ea 03/04/22 Odell 14 Day Sensor kit) blood-glucose meter #1 ea 03/06/22 pen needle, diabetic 32 gauge x #100 ea 04/12/22 (TechLITE Pen Needle) ondansetron 4 mg disintegrating 4 mg PO Q8H PRN nausea and 06/27/22 tablet vomiting #15 tabs overnight oximetry #1 ea 12/17/22 breast prosthesis bilateral and #1 ea 02/05/23 bras x4 ipratropium 0.5 mg-albuterol 3 mg 3 ml inhalation Q4H PRN shortness 02/21/23 (2.5 mg base)/3 mL nebulization of breath or wheezing #180 mL soln home oxygen 2l/m continuous #1 ea 06/04/23 famotidine 20 mg tablet 20 mg PO BID #180 tabs 09/10/23 CPAP set to 6-16 with supplies #1 ea 09/15/23 RSV - pre f3 #1 ea 10/09/23 apixaban 5 mg tablet (Eliquis) 5 mg PO Q12H #180 tabs 10/09/23 blood sugar diagnostic (Blood #120 ea 10/31/23 Glucose Test strips) atorvastatin 80 mg tablet 80 mg PO BEDTIME #90 tabs 01/05/24 Inogen portable oxygen device and #1 ea 02/19/24 supplies budesonide 160 mcg-glycopyr 9 2 inh inhalation BID #10.7 grams 02/19/24 mcg-formot 4.8 mcg/actuation HFA inhaler (Breztri Aerosphere) oxycodone 15 mg tablet 15 mg PO Q6H PRN pain 30 days #120 07/05/24 tabs Allergies Allergy/AdvReac Type Severity Reaction Status Date / Time adhesive tape Allergy Unknown Unknown Verified 07/04/24 17:37 bacitracin Allergy Unknown Unknown Verified 07/04/24 17:37 [From Neosporin ([id number])] codeine Allergy Unknown Unknown Verified 07/04/24 17:37 doxycycline Allergy Unknown Unknown Verified 07/04/24 17:37 neomycin Allergy Unknown Unknown Verified 07/04/24 17:37 [From Neosporin ([id number])] penicillamine Allergy Unknown Unknown Verified 07/04/24 17:37 Penicillins Allergy Unknown Unknown Verified 07/04/24 17:37 polymyxin B Allergy Unknown Unknown Verified 07/04/24 17:37 [From Neosporin ([id number])] prochlorperazine Allergy Unknown Unknown Verified 07/04/24 17:37 [From Compazine] Sulfa (Sulfonamide Allergy Unknown Unknown Verified 07/04/24 17:37 Antibiotics) diltiazem Allergy ALGY-Difficulty Verified 07/04/24 17:37 Breathing Review of Systems Narrative: Constitutional symptoms: Negative except as documented in HPI. Skin symptoms: Negative except as documented in HPI. Eye symptoms: Negative except as documented in HPI. ENMT symptoms: Negative except as documented in HPI. Respiratory symptoms: Negative except as documented in HPI. Cardiovascular symptoms: Negative except as documented in HPI. Gastrointestinal symptoms: Negative except as documented in HPI. Genitourinary symptoms: Negative except as documented in HPI. Musculoskeletal symptoms: Negative except as documented in HPI. Neurologic symptoms: Negative except as documented in HPI. Psychiatric symptoms: Negative except as documented in HPI. Endocrine symptoms: Negative except as documented in HPI. PFSH ED PFSH: Medical History Heart failure with mildly reduced ejection fraction Nicotine dependence, cigarettes, with unspecified nicotine-induced disorders Bilateral breast cancer Asthma Anxiety Acute respiratory failure with hypoxia and hypercarbia CHF (congestive heart failure) COPD (chronic obstructive pulmonary disease) Respiratory failure Paroxysmal atrial fibrillation MYRA (generalized anxiety disorder) Hypersomnia Chronic anticoagulation Atrial fib/flutter, transient Osteoporosis History of COVID-12 Aug 2021 Pneumonia Chronic kidney disease Diabetic peripheral neuropathy Anemia Carotid artery disease B12 deficiency Chronic pain CVA (cerebral vascular accident) History of nonmelanoma skin cancer Atopic dermatitis Seasonal allergies Renal artery stenosis Descending thoracic aortic aneurysm AAA (abdominal aortic aneurysm) Status post stent graft repair Obesity HTN (hypertension) Dyslipidemia Diabetes 1.5, managed as type 2 Surgical History History of total mastectomy of left breast 04/[address] Vo at [place], [place] History of stent insertion of renal artery History of aortic aneurysm repair S/P mastectomy (08/2009) Right modified radical mastectomy S/P cholecystectomy S/P tonsillectomy S/P hysterectomy Family History Other Stroke Social History Smoking and tobacco/nicotine status: current some day tobacco/nicotine user cigarettes Packs smoked per day: 0.5 Years cigarettes smoked: 66 Alcohol intake: never Substance/Drug Use: never Physical Exam Narrative: EXAM NARRATIVE: General: Alert, no acute distress. Skin: warm and dry Head: Normocephalic Neck: Trachea midline Eye: Extraocular movements are intact. Ears, nose, mouth and throat: Oral mucosa moist Respiratory: Respirations are non-labored Musculoskeletal: Some pain and mild swelling of the left ankle with no deformity. Right hand has dorsal swelling and bruising on the ulnar side of the hand. Neurological: Alert and oriented, No focal neurological deficit observed. Psychiatric: Cooperative, appropriate mood & affect. Course Vital Signs: Vital signs: Vital Signs Temperature 97.6 F 07/14/24 09:40 Pulse Rate 75 07/14/24 11:48 Respiratory Rate 20 H 07/14/24 09:40 Blood Pressure 122/71 07/14/24 11:48 Pulse Oximetry 97 07/14/24 11:48 Oxygen Delivery Me thod Nasal Cannula 07/14/24 09:40 Oxygen Flow Rate 3 07/14/24 09:40 MDM - Fall Medical Decision Making X-ray of the right hand: No fractures or dislocations. there is some soft tissue swelling. This was reviewed and interpreted by myself the emergency room physician. I also reviewed the radiology report. X-ray of the left ankle: No acute fracture or dislocation. This was reviewed and interpreted by myself the emergency room physician. I also reviewed the radiology report. Assessment and plan: Hand contusion Ankle sprain - Discharged home - Discussed plan with patient. Answered any questions. - Evaluation and treatment of this problem were appropriate in the emergency setting. Lab Data Radiology Impressions Ankle X-Ray 07/14/24 09:48 IMPRESSION: Moderate soft tissue swelling but no acute fracture or dislocation identified. Hand X-Ray 07/14/24 09:48 IMPRESSION: No acute fracture or dislocation evident. All radiology interpretation(s) finalized by discharge Discharge Plan Discharge Patient Disposition: Home Clinical Impression: Contusion of hand, Ankle strain Condition: Stable Prescriptions: No Action (DME) overnight oximetry See Rx Instructions .Route .MEDSUPPLY Qty: 1 0RF Rx Instructions: As directed famotidine 20 mg tablet 20 mg PO BID Qty: 180 1RF Breztri Aerosphere 160-9-4.8 mcg/actuation HFA aerosol inhaler 2 inh inhalation BID Qty: 10.7 6RF (DME) Inogen portable oxygen device and supplies See Rx Instructions .Route .MEDSUPPLY Qty: 1 0RF Rx Instructions: As directed (DME) FreeStyle Odell 14 Day Sensor Kit See Rx Instructions .Route Qty: 2 11RF Rx Instructions: As directed (DME) FreeStyle Odell 14 Day Matthews Misc See Rx Instructions .Route Qty: 1 0RF Rx Instructions: As directed Eliquis 5 mg tablet 5 mg PO Q12H Qty: 180 3RF (DME) RSV - pre f3 See Rx Instructions .Route .MEDSUPPLY Qty: 1 0RF Rx Instructions: As directed (DME) blood-glucose meter Misc See Rx Instructions .Route Qty: 1 0RF Rx Instructions: As directed with testing strips (DME) pen needle, diabetic [TechLITE Pen Needle] 32 gauge x 5/32 needle See Rx Instructions .Route Qty: 100 0RF Rx Instructions: As directed (DME) breast prosthesis bilateral and bras x4 See Rx Instructions .Route .MEDSUPPLY Qty: 1 0RF Rx Instructions: As directed (DME) home oxygen 2l/m continuous See Rx Instructions .Route .MEDSUPPLY Qty: 1 0RF Rx Instructions: As directed (DME) CPAP set to 6-16 with supplies See Rx Instructions .Route .MEDSUPPLY Qty: 1 0RF Rx Instructions: As directed (DME) Blood Glucose Test Strip See Rx Instructions .Route Qty: 120 12RF Rx Instructions: free style test strips - test qid atorvastatin 80 mg tablet 80 mg PO BEDTIME Qty: 90 3RF oxycodone 15 mg tablet 15 mg PO Q6H PRN (Reason: pain) 30 Days Qty: 120 0RF fluticasone propionate [Flonase Allergy Relief] 50 mcg/actuation spray,suspension 2 spray intranasal DAILY PRN (Reason: Allergy Symptoms) Rx Instructions: administer into each nostril ondansetron 4 mg tablet,disintegrating 4 mg PO Q8H PRN (Reason: nausea and vomiting) Qty: 15 0RF diphenhydramine HCl [Benadryl] 25 mg Capsule 25 mg PO BEDTIME PRN (Reason: Allergy Symptoms) albuterol sulfate [Ventolin HFA] 90 mcg/actuation HFA aerosol inhaler 2 puff inhalation 6XD PRN (Reason: Shortness Of Breath) ipratropium-albuterol 0.5 mg-3 mg(2.5 mg base)/3 mL solution for nebulization 3 ml inhalation Q4H PRN (Reason: shortness of breath or wheezing) Qty: 180 0RF Rx Instructions: until breathing returns to target peak flow/parameters buspirone 5 mg tablet 5 mg PO BEDTIME PRN (Reason: Anxiety) amiodarone 200 mg tablet 200 mg PO QAM multivitamin Tablet 1 tab PO DAILY carvedilol 6.25 mg tablet 6.25 mg PO BID potassium chloride 10 mEq capsule, extended release 10 meq PO BID torsemide 20 mg tablet 20 - 40 mg PO QAM montelukast 10 mg tablet 10 mg PO DAILY lisinopril 2.5 mg tablet 2.5 mg PO DAILY loratadine 10 mg tablet 10 mg PO DAILY glipizide 5 mg tablet 5 mg PO DAILY Lantus Solostar U-100 Insulin 100 unit/mL (3 mL) insulin pen 14 unit SUBCUT DAILY Discharge Orders: Discharge ED (Routine); Ordered 07/14/24 Ordered By: Anitha Mullins Referrals: Kofi Lopez MD [Primary Care Provider] - Patient Instructions: Opioid Safety, Pain Management Activity Restrictions/Additional Instructions: Thank you for choosing [facility] for your healthcare needs today. Please realize this is an emergency room and that we are providing you with a medical screening exam and this may not be complete and all inclusive of all the testing and or work up that you may need to determine your ailment or severity o f your illness. You have been screened and evaluated and felt safe for discharge. Health conditions do change or evolve sometimes and as such it is important that you follow up with your Primary Doctor to be re checked, 3-5 days is a general good time frame for follow up. You are always welcome to return to the ED for re assessment if your symptoms are worsening or you have new concerns Coding Level of Care Code ED Optometry Teacher for Betty Vela
[2024-07-14 10:05] VITALS: BP 113/75; O2SAT 100
[2024-07-14 11:47] VITALS: BP 122/71; PULSE 81; O2SAT 92
[2024-07-14 11:48] VITALS: BP 122/71; PULSE 75; O2SAT 97
== END 2024-07-14 11:49 | disposition home or self-care (01) ==
PROVIDERS: Emergency Provider Emergency Medicine; PCP Family Medicine
DX: S96.912A Strain of unspecified muscle and tendon at ankle and foot level, left foot, initial encounter (principal); S60.221A Contusion of right hand, initial encounter; Z79.01 Long term (current) use of anticoagulants; Z79.4 Long term (current) use of insulin; Z79.84 Long term (current) use of oral hypoglycemic drugs; F17.210 Nicotine dependence, cigarettes, uncomplicated; Z85.3 Personal history of malignant neoplasm of breast; J44.9 Chronic obstructive pulmonary disease, unspecified; I13.0 Hypertensive heart and chronic kidney disease with heart failure and stage 1 through stage 4 chronic kidney disease, or unspecified chronic kidney disease; E13.22 Other specified diabetes mellitus with diabetic chronic kidney disease; N18.9 Chronic kidney disease, unspecified; I50.9 Heart failure, unspecified; Z86.73 Personal history of transient ischemic attack (TIA), and cerebral infarction without residual deficits; E78.5 Hyperlipidemia, unspecified; W01.0XXA Fall on same level from slipping, tripping and stumbling without subsequent striking against object, initial encounter
CPT/HCPCS: 73130; 73610; 99284

== ENCOUNTER 2024-08-25 12:16 | Oncology outpatient (recurring) (ONCR) | payer MEDICARE, SELFPAY ==
[2024-08-25 13:08] LABS: Basophils % 0.2 %; Eosinophils # 0.3 10^3/uL (0.0-0.8); Hematocrit 35.3 % (36-47); Lymphocytes # 1.1 10^3/uL (0.8-4.8); Lymphocytes % 19.4 %; Mean Corpuscular HGB Conc 32.3 g/dL (30-55); Mean Corpuscular Hemoglobin 28.9 pg (27-33); Mean Corpuscular Volume 89.6 fl (85-98); Mean Platelet Volume 10.3 fL (7.4-10.4); Monocytes # 0.6 10^3/uL (0.2-0.9); Monocytes % 10.3 %; Neutrophils # 3.49 10^3/uL (1.8-7.7); Neutrophils % 63.9 %; Nucleated Red Blood Cells % 0 %; Platelet Count 238 10^3/cmm (157-399); Red Blood Count 3.94 10^6/uL (3.85-5.65); Red Cell Distribution Width 16.5 % (12.1-15.1); White Blood Count 5.46 10^3/uL (3.29-11.43)
[2024-08-25 13:25] LABS: Alanine Aminotransferase 11 U/L (0-33); Albumin Level 3.4 g/dL (3.5-5.2); Alkaline Phosphatase 209 U/L (35-105); Anion Gap 8.9 (5-19); Aspartate Amino Transferase 15 U/L (0-32); Blood Urea Nitrogen 19 mg/dL (8-23); Calcium 8.4 mg/dL (8.5-10.5); Carbon Dioxide 37 mmol/L (22-29); Chloride 97 mmol/L (98-107); Ferritin 206 ng/mL (15-150); Globulin 2.8 g/dL (1.3-4.6); Glucose 141 mg/dL (65-115); Iron 68 ug/dL (37-145); Osmolality Calculated 295 mOsm/kg (285-295); Percent Saturation 24.2 % (20-50); Sodium 140 mmol/L (136-145); Total Bilirubin 0.7 mg/dL (0.15-1.2); Total Iron Binding Capacity 280 mcg/dl; Total Protein 6.2 g/dL (6.6-8.7); Unsaturated Iron Binding 212 ug/dL (112-347)
[2024-08-25 13:31] LABS: Potassium 2.9 mmol/L (3.5-5.1)
[2024-08-25 15:03] LABS: Magnesium 1.7 mg/dL (1.7-2.3)
== END 2024-09-23 23:59 | disposition home or self-care (01) ==
LOC: ONCMED 12:16
PROVIDERS: Nurse Practitioner Family; PCP Family Medicine; Visit Provider Internal Medicine Hematology & Oncology
DX: D50.9 Iron deficiency anemia, unspecified; Z90.13 Acquired absence of bilateral breasts and nipples; Z85.3 Personal history of malignant neoplasm of breast; Z79.4 Long term (current) use of insulin; F17.210 Nicotine dependence, cigarettes, uncomplicated; D50.8 Other iron deficiency anemias; C50.812 Malignant neoplasm of overlapping sites of left female breast; Z79.899 Other long term (current) drug therapy
CPT/HCPCS: 36415; 80053; 82728; 83540; 83550; 83735; 85025; 99214

== ENCOUNTER → 2024-08-26 11:45 | Outpatient (BNVA) | payer MEDICARE, SELFPAY | PROVIDERS: PCP Family Medicine; Visit Provider Nurse Practitioner Family | DX: I13.0 Hypertensive heart and chronic kidney disease with heart failure and stage 1 through stage 4 chronic kidney disease, or unspecified chronic kidney disease (principal); E13.22 Other specified diabetes mellitus with diabetic chronic kidney disease; N18.9 Chronic kidney disease, unspecified; Z79.4 Long term (current) use of insulin; I50.32 Chronic diastolic (congestive) heart failure; R60.0 Localized edema | CPT/HCPCS: 99214 ==

== ENCOUNTER → 2024-09-07 11:39 | Outpatient (BNVA) | payer MEDICARE, SELFPAY | PROVIDERS: PCP Family Medicine; Visit Provider Family Medicine | DX: E13.9 Other specified diabetes mellitus without complications (principal) | CPT/HCPCS: 80048; 83036 ==

== ENCOUNTER 2024-09-08 09:23 | Outpatient (CLI) | payer MEDICARE, SELFPAY ==
--- NOTE | 2024-09-08 12:00 | USCV_ITS ---
Paloma Slater Age: 83 Gender: F : 1940 Exam Date: 09/08/2024 10:03 Ordering Phys: Cristina Mckeon Technologist: MARKEL [place]am [place] [facility] [place]: HISTORY: PROCEDURES: FINDINGS: Multiple echolucent areas in the subcu cutaneous plane Venous reflux was noted in the greater saphenous vein distal to the saphenofemoral junction on the right side and with the reflux time of 0.89 seconds the vein was measuring 0.56 cm and at a depth of 0.51 cm CONCLUSIONS No evidence of DVT in the above-mentioned identifiable veins. Significant venous reflux of greater than 500 ms was noted at the greater saphenous vein distal to the saphenofemoral junction on the right side. But it was found to be very superficial, at a depth of 0.51 cm. The reflux time and venous diameter are as mentioned above No other significant reflux were noted on either side Dr Jazmín Aguiar MD [facility] (Electronically Signed) Final Date: 13 September 2024 08:50 S
== END 2024-09-08 09:24 | disposition home or self-care (01) ==
LOC: RAD 09:25
PROVIDERS: PCP Family Medicine; Visit Provider Nurse Practitioner Family
DX: R60.0 Localized edema (principal); I82.811 Embolism and thrombosis of superficial veins of right lower extremity
CPT/HCPCS: 93970

== ENCOUNTER 2024-09-25 13:28 | Emergency (ER) | payer MEDICARE, SELFPAY ==
[2024-09-25 13:43] VITALS: BP 103/61; PULSE 77; RESP 17; TEMP 36.6; O2SAT 99; BMI 31.1
--- NOTE | 2024-09-25 13:50 | CTR_ITS ---
PROCEDURE INFORMATION: Exam: CT Head Without Contrast Exam date and time: 09/25/2024 2:09 PM Age: 83 years old Clinical indication: Dizziness; Additional info: Dizzy TECHNIQUE: Imaging protocol: Computed tomography of the head without contrast. Radiation optimization: All CT scans at this facility use at least one of these dose optimization techniques: automated exposure control; mA and/or kV adjustment per patient size (includes targeted exams where dose is matched to clinical indication); or iterative reconstruction. COMPARISON: CT angio headneck* [id number] 04/25/2021 9:34 PM RADIATION DOSE METRICS: Total DLP (mGy-cm): 1126.98 FINDINGS: Brain: There are bilateral periventricular white matter and centrum semiovale hypodensities, consistent with chronic ischemic small vessel disease. No recent infarct, intracranial bleed or mass effect. Cerebral ventricles: No ventriculomegaly. Paranasal sinuses: Visualized sinuses are unremarkable. No fluid levels. Mastoid air cells: Visualized mastoid air cells are well aerated. Orbital cavities: Post bilateral cataract surgery. Bones: Unremarkable. No acute fracture. Soft tissues: Unremarkable. CT/CT head wo con* [id number] IMPRESSION: No large territorial infarct or intracranial bleed.
--- NOTE | 2024-09-25 13:50 | XRR_ITS ---
PROCEDURE INFORMATION: Exam: XR Chest Exam date and time: 09/25/2024 2:01 PM Age: 83 years old Clinical indication: Other: Pre syncope TECHNIQUE: Imaging protocol: Radiologic exam of the chest. Views: 1 view. COMPARISON: CR XR chest 1V portable [id number] 07/04/2024 6:11 PM FINDINGS: Lungs: Bilateral apical fibrotic changes. No focal infiltrates. Pleural spaces: Unremarkable. No pleural effusion. No pneumothorax. Heart/Mediastinum: There is cardiomegaly. Vasculature: Aortic arch calcifications. Partially included abdominal aortic stent. Bones/joints: Mild degenerative disease of bilateral acromioclavicular and bilateral glenohumeral joints. Curvature of the thoracic spine convex to the right. XR/XR chest 1V portable [id number] IMPRESSION: No acute cardiopulmonary process.
[2024-09-25 13:56] LABS: Glucose Point of Care 138 mg/dL (70-110)
--- NOTE | 2024-09-25 14:00 | ECG_ITS ---
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 Measurements Intervals [place] Rate: 73 P: 0 NE: 0 QRS: -85 QRSD: 168 T: 72 QT: 486 QTc: 538 Interpretive Statements ATRIAL FIBRILLATION Left bundle branch block pattern Compared to ECG 07/04/2024 19:46:09 No significant change Electronically Signed On 09-26-2024 14:09:17 SENIOR HOUSEKEEPER by Alberta Singh M.D. [email or web address]
--- NOTE | 2024-09-25 14:02 | W.ED.DIZZY ---
HPI - Dizziness General: Chief Complaint: Dizziness Stated Complaint: dizzy, feel like passing out Time Seen by Provider: 09/25/24 13:50 History of Present Illness: HPI Narrative: Paloma Slater is an 83-year-old female that presents to the emergency department with acute onset of dizziness. Onset of symptoms approximately 30 minutes prior to her arrival. Patient reports she woke up this morning and felt fine. She went to the restroom and upon trying to get up from the commode she felt dizzy and fell forward into the wall. She denies striking her head and denies injury. Patient has very complex medical history that includes: Hypertension, hyperlipidemia, chronic kidney disease?stage IV, cardiovascular disease, congestive heart failure, COPD and continued tobacco use, prior stroke, atrial fibrillation with chronic anticoagulation and osteoporosis. She also has a history of breast cancer with bilateral mastectomy, AAA with stenting, Associated symptoms: Denies chest pain (She does have right-sided chest wall pain from injury 3 days ago), chills, headache(s), malaise, nausea, palpitations or vomiting Associated neuro symptoms: Deny confusion, dysphagia or numbness in extremities Related Data Home Medications Medication Instructions Recorded Confirmed fluticasone propionate 50 2 spray intranasal DAILY PRN 06/27/22 09/07/24 mcg/actuation nasal Allergy Symptoms spray,suspension (Flonase Allergy Relief) albuterol sulfate 90 mcg/actuation 2 puff inhalation 6XD PRN 02/19/23 09/07/24 aerosol inhaler (Ventolin HFA) Shortness Of Breath diphenhydramine HCl 25 mg capsule 25 mg PO BEDTIME PRN Allergy 02/19/23 09/07/24 (Benadryl) Symptoms amiodarone 200 mg tablet 200 mg PO QAM 02/06/24 09/07/24 buspirone 5 mg tablet 5 mg PO BEDTIME PRN Anxiety 02/06/24 09/07/24 multivitamin 1 tab PO DAILY 02/06/24 09/07/24 carvedilol 6.25 mg tablet 6.25 mg PO BID 07/14/24 09/07/24 glipizide 5 mg tablet 5 mg PO DAILY 07/14/24 09/07/24 lisinopril 2.5 mg tablet 2.5 mg PO DAILY 07/14/24 09/07/24 loratadine 10 mg tablet 10 mg PO DAILY 07/14/24 09/07/24 montelukast 10 mg tablet 10 mg PO DAILY 07/14/24 09/07/24 Previous Rx's Medication Instructions Recorded flash glucose scanning reader #1 ea 03/04/22 (FreeStyle Odell 14 Day [place]) flash glucose sensor (FreeStyle #2 ea 03/04/22 Odell 14 Day Sensor kit) blood-glucose meter #1 ea 03/06/22 pen needle, diabetic 32 gauge x #100 ea 04/12/22 (TechLITE Pen Needle) ondansetron 4 mg disintegrating 4 mg PO Q8H PRN nausea and 06/27/22 tablet vomiting #15 tabs overnight oximetry #1 ea 12/17/22 breast prosthesis bilateral and #1 ea 02/05/23 bras x4 ipratropium 0.5 mg-albuterol 3 mg 3 ml inhalation Q4H PRN shortness 02/21/23 (2.5 mg base)/3 mL nebulization of breath or wheezing #180 mL soln home oxygen 2l/m continuous #1 ea 06/04/23 CPAP set to 6-16 with supplies #1 ea 09/15/23 RSV - pre f3 #1 ea 10/09/23 apixaban 5 mg tablet (Eliquis) 5 mg PO Q12H #180 tabs 10/09/23 blood sugar diagnostic (Blood #120 ea 10/31/23 Glucose Test strips) atorvastatin 80 mg tablet 80 mg PO BEDTIME #90 tabs 01/05/24 Inogen portable oxygen device and #1 ea 02/19/24 supplies budesonide 160 mcg-glycopyr 9 2 inh inhalation BID #10.7 grams 02/19/24 mcg-formot 4.8 mcg/actuation HFA inhaler (Breztri Aerosphere) insulin glargine 100 unit/mL (3 See Rx Instructions .Route 08/18/24 mL) subcutaneous pen (Lantus .COMPLEX #15 mL Solostar U-100 Insulin) oxycodone 15 mg tablet 15 mg PO Q6H PRN pain 30 days #120 09/07/24 tabs potassium chloride 20 mEq See Rx Instructions PO DAILY #90 09/08/24 tablet,extended release tabs torsemide 20 mg tablet 20 - 40 mg (1 - 2 x 20 mg) PO QAM 09/13/24 #60 tabs famotidine 20 mg tablet 20 mg PO BID #180 tabs 09/23/24 Allergies Allergy/AdvReac Type Severity Reaction Status Date / Time adhesive tape Allergy Unknown Unknown Verified 09/07/24 11:04 bacitracin Allergy Unknown Unknown Verified 09/07/24 11:04 [From Neosporin ([id number])] codeine Allergy Unknown Unknown Verified 09/07/24 11:04 doxycycline Allergy Unknown Unknown Verified 09/07/24 11:04 neomycin Allergy Unknown Unknown Verified 09/07/24 11:04 [From Neosporin ([id number])] penicillamine Allergy Unknown Unknown Verified 09/07/24 11:04 Penicillins Allergy Unknown Unknown Verified 09/07/24 11:04 polymyxin B Allergy Unknown Unknown Verified 09/07/24 11:04 [From Neosporin ([id number])] prochlorperazine Allergy Unknown Unknown Verified 09/07/24 11:04 [From Compazine] Sulfa (Sulfonamide Allergy Unknown Unknown Verified 09/07/24 11:04 Antibiotics) diltiazem Allergy ALGY-Difficulty Verified 09/07/24 11:04 Breathing Review of Systems General: Reports: 10 or more systems reviewed and unremarkable except in HPI and below Const: Denies: fever(s), chills, change in appetite, change in weight, fatigue or malaise Card: Reports: irregular heart rhythm, edema, lightheadedness and pre-syncope; Denies: chest pain (She does have right-sided chest wall pain from injury 3 days ago), palpitations, dyspnea on exertion, orthopnea or leg pain with exertion Resp: Reports: dyspnea (Chronic); Denies: productive cough, non-productive cough, wheezing, stridor or chest congestion GI: Denies: abdominal pain, nausea, vomiting, dysphagia, diarrhea, constipation, bloating, GI cramping or hematochezia : Denies: flank pain, difficulty voiding, dysuria, urinary frequency, urinary urgency, urinary hesitancy, oliguria or hematuria Musc: Denies: neck pain, back pain, extremity pain, joint pain, joint swelling, joint redness or muscle weakness Skin/Breast: Denies: rash, pruritus, erythema, photosensitivity or new lesions Neuro: Reports: dizziness; Denies: headache(s), numbness in extremities, weakness in extremities, sensory changes, lack of coordination, difficulty walking, frequent falls, confusion, Slurred speech present, difficulty communicating thoughts, seizure-like activity or involuntary movements Endo: Denies: polyuria, polydipsia or tired all the time Leonardo/Lymph: Denies: easy bruising or easy bleeding PFS ED PFSH: Medical History AAA (abdominal aortic aneurysm) Status post stent graft repair Acute respiratory failure with hypoxia and hypercarbia Anemia Anxiety Asthma Atopic dermatitis Atrial fib/flutter, transient B12 deficiency Bilateral breast cancer Carotid artery disease CHF (congestive heart failure) Chronic anticoagulation Chronic kidney disease Chronic pain COPD (chronic obstructive pulmonary disease) CVA (cerebral vascular accident) Descending thoracic aortic 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, 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 Dyslipidemia MYRA (generalized anxiety disorder) Heart failure with mildly reduced ejection fraction History of COVID-12 Aug 2021 History of nonmelanoma skin cancer HTN (hypertension) Hypersomnia Nicotine dependence, cigarettes, with unspecified nicotine-induced disorders Obesity Osteoporosis Paroxysmal atrial fibrillation Pneumonia Renal artery stenosis Respiratory failure Seasonal allergies Surgical History History of aortic aneurysm repair History of stent insertion of renal artery History of total mastectomy of left breast 04/[address] Vo at [place], [place] S/P cholecystectomy S/P hysterectomy S/P mastectomy (08/2009) Right modified radical mastectomy S/P tonsillectomy Family History Other Stroke Social History Smoking and tobacco/nicotine status: current every day tobacco/nicotine user cigarettes Packs smoked per day: 0.5 Years cigarettes smoked: 66 Alcohol intake: never Substance/Drug Use: never Physical Exam Const: COMMON NORMALS: no acute distress, patient oriented x3 and alert GENERAL APPEARANCE: cooperative ORIENTATION/CONSCIOUSNESS: Yes awake, Yes oriented to person, Yes oriented to place and Yes oriented to time Chest: COMMONS NORMALS: normal inspection of the chest Breast/axilla inspection: Yes abnormal inspection of the breast (Bilateral mastectomy) and Yes scars Resp: COMMON NORMALS: normal respiratory effort (On 3 L), No retractions and No use of accessory muscles EFFORT & INSPECTION: Yes able to speak in complete sentences and Yes symmetric chest movement AUSCULTATION: crackles, rhonchi, wheezes and diminished lung sounds Cardio: COMMON NORMALS: regular rate and Peripheral pulses 2+ throughout RATE: regular rate RHYTHM: abnormal rhythm irregularly irregular PERIPHERAL PULSES: Peripheral pulses 2+ throughout GI: COMMON NORMALS: Soft to palpation, non-tender and No hepatosplenomegaly present INSPECTION: Yes normal to inspection AUSCULTATION: Yes normoactive bowel sounds PALPATION: Yes Soft to palpation and Yes No hepatosplenomegaly present RECTAL EXAM: deferred Extremity: COMMON NORMALS: normal to inspection GENERAL: Yes normal exam except as noted Neuro: COMMON NORMALS: patient oriented x3 SENSORIUM/ORIENTATION: Yes alert, Yes oriented to person, Yes oriented to place and Yes oriented to time CRANIAL NERVES: Yes CN normal except as noted Psych: COMMON NORMALS: mental status grossly normal, Normal thought process present, cooperative, activity/motor behavior normal, denies homicidal ideation and denies suicidal ideation THOUGHT PROCESS: Normal thought process present Skin: COMMON NORMALS: no rashes or lesions noted, no wounds and turgor normal GENERAL SKIN EXAM: no rashes or lesions noted and turgor normal Course Vital Signs: Vital signs: Vital Signs Temperature 97.9 F 09/25/24 13:43 Pulse Rate 65 09/25/24 16:41 Respiratory Rate 16 09/25/24 16:41 Blood Pressure 115/71 09/25/24 16:41 Pulse Oximetry 97 09/25/24 16:41 Oxygen Delivery Me thod Room Air 09/25/24 16:41 Oxygen Flow Rate 3 09/25/24 13:43 [facility] - Dizziness Medical Decision Making Patient was evaluated in the emergency department today for acute onset of dizziness. Patient denies any chest pain or shortness of breath but does report that she increased her oxygen from 2 to 3 L thinking that might help. She did not improve with the additional oxygenation. Patient has multiple comorbidities that do increase the risk. She has heart disease, history of atrial fibrillation, chronic kidney disease, and lung diseases. She is on anticoagulation. Heart score: 6 points which makes her moderate score. Patient underwent laboratory evaluation, chest x-ray, CT head, urinalysis. Initial EKG at 1400 reveals atrial flutter. There is an old inferior wall KS her EKG is grossly unchanged from her baseline. Subsequent EKG at 1558 reveals atrial fibrillation with the same intraventricular conduction delay and old inferior wall KS. Initial troponin was 28. This is in line with her baseline. However, we did obtain a 2-hour delta which revealed a troponin of -3. She has no cardiopulmonary abnormalities on chest x-ray and her CT head was normal. There was no evidence of acute stroke. There is no evidence of leukocytosis, significant anemia that is unchanged from baseline, or electrolyte abnormality. No evidence of liver or worsening renal dysfunction. During our evaluation patient was also given normal saline 500 cc bolus. Patient notes significant improvement in her symptoms while awaiting workup. I discussed the case with Dr. Urban. Patient symptoms have resolved and I am not finding any significant change in her baseline that would warrant admission. We are going to allow her to discharge home. I have instructed her on her laboratory workup as well as her diagnostics. We were unable to answer what caused her dizziness but with improvement in her symptoms and no documented evidence of worrisome finding, I think it is fine that she discharge. She has been instructed to return to the emergency department should she develop new, concerning, worsening symptoms. Patient does have a follow-up with her cardiology this week or next. I have instructed her to follow-up with her primary care this week. She is agreeable and all questions were answered Differential Diagnosis Likely adverse reaction to drug, benign paroxysmal positional vertigo, orthostatic hypotension, cerebrovascular accident and transient cerebral ischemia Lab Data 09/25/24 14:08 09/25/24 14:08 Radiology Impressions Chest X-Ray 09/25/24 13:50 IMPRESSION: No acute cardiopulmonary process. Head CT 09/25/24 13:50 IMPRESSION: No large territorial infarct or intracranial bleed. Laboratory Results WBC 6.66 10^3/uL (3.29-11.43) 09/25/24 14:08 RBC 4.34 10^6/uL (3.85-5.65) 09/25/24 14:08 Hgb 12.60 g/dL (11.27-16.99) 09/25/24 14:08 Hct 39.8 % (36-47) 09/25/24 14:08 MCV 91.7 fl (85-98) 09/25/24 14:08 MCH 29.0 pg (27-33) 09/25/24 14:08 MCHC 31.7 g/dL (30-55) 09/25/24 14:08 RDW 15.3 % (12.1-15.1) H 09/25/24 14:08 Plt Count 284 10^3/cmm (157-399) 09/25/24 14:08 MPV 10.0 fL (7.4-10.4) 09/25/24 14:08 Neut % (Auto) 58.3 % 09/25/24 14:08 Lymph % (Auto) 21.9 % 09/25/24 14:08 [place] % (Auto) 11.1 % 09/25/24 14:08 Eos % (Auto) 8.3 % 09/25/24 14:08 Baso % (Auto) 0.2 % 09/25/24 14:08 Neut # (Auto) 3.89 10^3/uL (1.8-7.7) 09/25/24 14:08 Lymph # (Auto) 1.5 10^3/uL (0.8-4.8) 09/25/24 14:08 [place] # (Auto) 0.7 10^3/uL (0.2-0.9) 09/25/24 14:08 Eos # (Auto) 0.6 10^3/uL (0.0-0.8) 09/25/24 14:08 Baso # (Auto) 0.0 10^3/uL (0.0-0.1) 09/25/24 14:08 Nucleated RBC % (auto) 0 % 09/25/24 14:08 Nucleated RBCs # 0.0 /100WBC 09/25/24 14:08 Sodium 139 mmol/L (136-145) 09/25/24 14:08 Potassium 3.4 mmol/L (3.5-5.1) L 09/25/24 14:08 Chloride 95 mmol/L (98-107) L 09/25/24 14:08 Carbon Dioxide 35 mmol/L (22-29) H 09/25/24 14:08 Anion Gap 12.4 (5-19) 09/25/24 14:08 BUN 20 mg/dL (8-23) 09/25/24 14:08 Creatinine 1.5 mg/dL (0.5-0.9) H 09/25/24 14:08 GFR Calculation Not Reportable 09/25/24 14:08 Glucose 131 mg/dL (65-115) H 09/25/24 14:08 POC Glucose 138 mg/dL (70-110) H 09/25/24 13:52 Calculated Osmolality 292 mOsm/kg (285-295) 09/25/24 14:08 Calcium 8.3 mg/dL (8.5-10.5) L 09/25/24 14:08 Total Bilirubin 0.6 mg/dL (0.15-1.2) 09/25/24 14:08 AST 14 U/L (0-32) 09/25/24 14:08 ALT 9 U/L (0-33) 09/25/24 14:08 Alkaline Phosphatase 235 U/L (35-105) H 09/25/24 14:08 Troponin T Baseline 28 ng/L (0-10) H 09/25/24 14:08 Troponin T 120 Minute 24.24 ng/L (0-10) H 09/25/24 16:09 Delta Troponin T -3.76 ABS# (0-10) L 09/25/24 16:09 Total Protein 6.5 g/dL (6.6-8.7) L 09/25/24 14:08 Albumin 3.7 g/dL (3.5-5.2) 09/25/24 14:08 Globulin 2.8 g/dL (1.3-4.6) 09/25/24 14:08 Urine Color [place] (Yellow) A 09/25/24 15:23 Urine Appearance Clear (CLEAR) 09/25/24 15:23 Urine pH 7.0 (5-7) 09/25/24 15:23 Ur Specific [place] 1.008 (1.005-1.030) 09/25/24 15:23 Urine Protein Negative (Negative) 09/25/24 15:23 Urine Glucose (UA) Negative (Normal) 09/25/24 15:23 Urine Ketones Negative (Negative) 09/25/24 15:23 Urine Blood Negative (Negative) 09/25/24 15:23 Urine Nitrate Negative (Negative) 09/25/24 15:23 Urine Bilirubin Negative (Negative) 09/25/24 15:23 Urine Urobilinogen 1.0 mg/dL (Negative) 09/25/24 15:23 Ur Leukocyte Esterase Negative (Negative) 09/25/24 15:23 Urine RBC 0-2 /hpf (0-2) 09/25/24 15:23 Urine WBC 0-5 /hpf (0-5) 09/25/24 15:23 Ur Squamous Epith Cells 0-5 /hpf (0-5) 09/25/24 15:23 Amorphous Sediment Not Reportable 09/25/24 15:23 Urine Bacteria None seen /hpf (NONE) 09/25/24 15:23 Hyaline Casts 2.05 /lpf 09/25/24 15:23 All radiology interpretation(s) finalized by discharge Discharge Plan Discharge Patient Disposition: Home Clinical Impression: Dizziness Condition: Stable Prescriptions: No Action (DME) overnight oximetry See Rx Instructions .Route .MEDSUPPLY Qty: 1 0RF Rx Instructions: As directed Tadpoles 160-9-4.8 mcg/actuation HFA aerosol inhaler 2 inh inhalation BID Qty: 10.7 6RF (DME) Inogen portable oxygen device and supplies See Rx Instructions .Route .MEDSUPPLY Qty: 1 0RF Rx Instructions: As directed oxycodone 15 mg tablet 15 mg PO Q6H PRN (Reason: pain) 30 Days Qty: 120 0RF (DME) FreeStyle Odell 14 Day Sensor Kit See Rx Instructions .Route Qty: 2 11RF Rx Instructions: As directed (DME) FreeStyle Odell 14 Day [place] Misc See Rx Instructions .Route Qty: 1 0RF Rx Instructions: As directed Eliquis 5 mg tablet 5 mg PO Q12H Qty: 180 3RF (DME) RSV - pre f3 See Rx Instructions .Route .MEDSUPPLY Qty: 1 0RF Rx Instructions: As directed (DME) blood-glucose meter Misc See Rx Instructions .Route Qty: 1 0RF Rx Instructions: As directed with testing strips (DME) pen needle, diabetic [TechLITE Pen Needle] 32 gauge x 5/32 needle See Rx Instructions .Route Qty: 100 0RF Rx Instructions: As directed (DME) breast prosthesis bilateral and bras x4 See Rx Instructions .Route .MEDSUPPLY Qty: 1 0RF Rx Instructions: As directed (DME) home oxygen 2l/m continuous See Rx Instructions .Route .MEDSUPPLY Qty: 1 0RF Rx Instructions: As directed (DME) CPAP set to 6-16 with supplies See Rx Instructions .Route .MEDSUPPLY Qty: 1 0RF Rx Instructions: As directed (DME) Blood Glucose Test Strip See Rx Instructions .Route Qty: 120 12RF Rx Instructions: free style test strips - test qid atorvastatin 80 mg tablet 80 mg PO BEDTIME Qty: 90 3RF Lantus Solostar U-100 Insulin 100 unit/mL (3 mL) insulin pen See Rx Instructions .ROUTE .COMPLEX Qty: 15 0RF Dose Instruction: inject 14 units UNDER THE SKIN ONCE DAILY Rx Instructions: inject 14 units UNDER THE SKIN ONCE DAILY potassium chloride 20 mEq tablet extended release See Rx Instructions PO DAILY Qty: 90 0RF Rx Instructions: take TWO tablets TWICE daily x 7 days, then one table daily therafter orally daily; torsemide 20 mg tablet 20 - 40 mg PO QAM Qty: 60 1RF famotidine 20 mg tablet 20 mg PO BID Qty: 180 0RF fluticasone propionate [Flonase Allergy Relief] 50 mcg/actuation spray,suspension 2 spray intranasal DAILY PRN (Reason: Allergy Symptoms) Rx Instructions: administer into each nostril ondansetron 4 mg tablet,disintegrating 4 mg PO Q8H PRN (Reason: nausea and vomiting) Qty: 15 0RF diphenhydramine HCl [Benadryl] 25 mg Capsule 25 mg PO BEDTIME PRN (Reason: Allergy Symptoms) albuterol sulfate [Ventolin HFA] 90 mcg/actuation HFA aerosol inhaler 2 puff inhalation 6XD PRN (Reason: Shortness Of Breath) ipratropium-albuterol 0.5 mg-3 mg(2.5 mg base)/3 mL solution for nebulization 3 ml inhalation Q4H PRN (Reason: shortness of breath or wheezing) Qty: 180 0RF Rx Instructions: until breathing returns to target peak flow/parameters buspirone 5 mg tablet 5 mg PO BEDTIME PRN (Reason: Anxiety) amiodarone 200 mg tablet 200 mg PO QAM multivitamin Tablet 1 tab PO DAILY carvedilol 6.25 mg tablet 6.25 mg PO BID montelukast 10 mg tablet 10 mg PO DAILY lisinopril 2.5 mg tablet 2.5 mg PO DAILY loratadine 10 mg tablet 10 mg PO DAILY glipizide 5 mg tablet 5 mg PO DAILY Discharge Orders: Discharge ED (Routine); Ordered 09/25/24 Ordered By: Ezequiel Greer Referrals: Kofi Lopez MD [Primary Care Provider] - Discharge Diet: Advance as tolerated Discharge Activity: Resume usual activity Patient Instructions: Dizziness (ED), Pain Management Activity Restrictions/Additional Instructions: Please return to the emergency department for new, concerning, worsening symptoms As discussed, we were unable to identify what caused your dizziness. Your CT does not show any hemorrhage or evidence of stroke. MRI head/brain may offer us more information. The laboratory studies showed an elevated troponin but this is in line with your baseline. It is not increasing. Please follow-up with your trim installer as discussed Please follow-up with primary care this week. Call Friday for an appointment. 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
[2024-09-25 14:14] LABS: Basophils % 0.2 %; Eosinophils # 0.6 10^3/uL (0.0-0.8); Eosinophils % 8.3 %; Hematocrit 39.8 % (36-47); Lymphocytes # 1.5 10^3/uL (0.8-4.8); Lymphocytes % 21.9 %; Mean Corpuscular HGB Conc 31.7 g/dL (30-55); Mean Corpuscular Volume 91.7 fl (85-98); Monocytes # 0.7 10^3/uL (0.2-0.9); Monocytes % 11.1 %; Neutrophils # 3.89 10^3/uL (1.8-7.7); Neutrophils % 58.3 %; Nucleated Red Blood Cells % 0 %; Platelet Count 284 10^3/cmm (157-399); Red Blood Count 4.34 10^6/uL (3.85-5.65); Red Cell Distribution Width 15.3 % (12.1-15.1); White Blood Count 6.66 10^3/uL (3.29-11.43)
--- NOTE | 2024-09-25 14:23 | PC.NURSE ---
this nurse assumed pt care at 1420 from Rosalva PINA
[2024-09-25 14:25] VITALS: BP 100/68; PULSE 76; RESP 16; O2SAT 98
[2024-09-25 14:31] LABS: Alanine Aminotransferase 9 U/L (0-33); Albumin Level 3.7 g/dL (3.5-5.2); Alkaline Phosphatase 235 U/L (35-105); Anion Gap 12.4 (5-19); Aspartate Amino Transferase 14 U/L (0-32); Blood Urea Nitrogen 20 mg/dL (8-23); Calcium 8.3 mg/dL (8.5-10.5); Carbon Dioxide 35 mmol/L (22-29); Chloride 95 mmol/L (98-107); Creatinine Clr Calc Pharmacy 28.2811; Globulin 2.8 g/dL (1.3-4.6); Glucose 131 mg/dL (65-115); Osmolality Calculated 292 mOsm/kg (285-295); Potassium 3.4 mmol/L (3.5-5.1); Sodium 139 mmol/L (136-145); Total Bilirubin 0.6 mg/dL (0.15-1.2); Total Protein 6.5 g/dL (6.6-8.7)
[2024-09-25] MEDS: ondansetron 2 mg/ML SDV 2 mL 4 MG IVP (14:32)
[2024-09-25] MEDS: sodium chloride 0.9% 500 ML IV (14:32)
[2024-09-25 14:45] LABS: Troponin(5th) Baseline 28 ng/L (0-10)
[2024-09-25 14:53] VITALS: BP 107/61; BP 113/61; BP 113/66; PULSE 70; PULSE 73; PULSE 78
[2024-09-25 15:55] LABS: Bilirubin Urine Negative (Negative); Blood Urine Negative (Negative); Glucose Urine UA Negative (Normal); Ketones Urine Negative (Negative); Leukocyte Esterase Urine Negative (Negative); Nitrate Urine Negative (Negative); Protein Urine Negative (Negative); Specific Gravity, Urine 1.008 (1.005-1.030); Urine Appearance Clear (CLEAR)
--- NOTE | 2024-09-25 15:58 | ECG_ITS ---
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 Measurements Intervals [place] Rate: 71 P: 0 FL: 0 QRS: 266 QRSD: 167 T: 86 QT: 485 QTc: 530 Interpretive Statements ATRIAL FIBRILLATION With ventricular rate controlled Left bundle branch block pattern Compared to ECG 09/25/2024 14:00:50 No significant change Electronically Signed On 09-26-2024 14:19:11 REINSURANCE ACCOUNTANT by Alberta Singh M.D. [email or web address]
[2024-09-25 16:01] LABS: Add Urine Microscopic? YES; Bacteria Urine None Seen /hpf; Hyaline Casts Urine 2.05 /lpf; RBC Urine 0-2 /hpf (0-2); Squamous Epithelial Cell Urine 0-5 /hpf (0-5); WBC Urine 0-5 /hpf (0-5)
[2024-09-25 16:02] LABS: Urine Color Orange (Yellow)
[2024-09-25 16:11] VITALS: BP 115/71; PULSE 65; RESP 16; O2SAT 99
[2024-09-25 16:41] VITALS: BP 115/71; PULSE 65; RESP 16; O2SAT 97
[2024-09-25 16:43] LABS: Troponin 5 2HR 24.24 ng/L (0-10); Troponin 5 2HR Delta -3.76 ABS# (0-10)
[2024-09-25 17:14] VITALS: BP 114/58; PULSE 70; RESP 16; O2SAT 100
== END 2024-09-25 17:15 | disposition home or self-care (01) ==
PROVIDERS: Emergency Provider Nurse Practitioner; PCP Family Medicine
DX: R42 Dizziness and giddiness (principal); Z79.01 Long term (current) use of anticoagulants; F17.210 Nicotine dependence, cigarettes, uncomplicated; E13.22 Other specified diabetes mellitus with diabetic chronic kidney disease; I13.0 Hypertensive heart and chronic kidney disease with heart failure and stage 1 through stage 4 chronic kidney disease, or unspecified chronic kidney disease; N18.4 Chronic kidney disease, stage 4 (severe); I50.9 Heart failure, unspecified; J44.9 Chronic obstructive pulmonary disease, unspecified
CPT/HCPCS: 36415; 36416; 70450; 71045; 80053; 81001; 82962; 84484; 85025; 93005; 96374; 99285; J2405; J7040

== ENCOUNTER → 2024-10-05 14:16 | Outpatient (BNVA) | payer MEDICARE, SELFPAY | PROVIDERS: PCP Family Medicine; Visit Provider Nurse Practitioner Family | DX: L81.4 Other melanin hyperpigmentation (principal); L57.8 Other skin changes due to chronic exposure to nonionizing radiation; L82.0 Inflamed seborrheic keratosis; L29.89 Other pruritus; Z78.9 Other specified health status; L53.8 Other specified erythematous conditions | CPT/HCPCS: 17110; 99213 ==

== ENCOUNTER → 2024-11-03 14:36 | Outpatient (BNVA) | payer MEDICARE, SELFPAY | PROVIDERS: PCP Family Medicine; Visit Provider Nurse Practitioner Family | DX: L81.4 Other melanin hyperpigmentation (principal); L57.8 Other skin changes due to chronic exposure to nonionizing radiation; L53.8 Other specified erythematous conditions; L82.0 Inflamed seborrheic keratosis; Z29.89 Encounter for other specified prophylactic measures | CPT/HCPCS: 17110; 99213 ==

== ENCOUNTER 2024-11-04 12:48 | Oncology outpatient (recurring) (ONCR) | payer MEDICARE, SELFPAY ==
[2024-11-04 13:40] LABS: Basophils % 0.2 %; Eosinophils # 0.3 10^3/uL (0.0-0.8); Eosinophils % 4.3 %; Lymphocytes % 16.2 %; Mean Corpuscular HGB Conc 31.4 g/dL (30-55); Mean Corpuscular Hemoglobin 29.7 pg (27-33); Mean Corpuscular Volume 94.9 fl (85-98); Mean Platelet Volume 10.1 fL (7.4-10.4); Monocytes # 0.6 10^3/uL (0.2-0.9); Monocytes % 9.8 %; Neutrophils # 4.33 10^3/uL (1.8-7.7); Neutrophils % 69.3 %; Nucleated Red Blood Cells % 0 %; Platelet Count 226 10^3/cmm (157-399); Red Cell Distribution Width 15.6 % (12.1-15.1); White Blood Count 6.24 10^3/uL (3.29-11.43)
[2024-11-04 14:15] LABS: Alanine Aminotransferase 10 U/L (0-33); Albumin Level 3.5 g/dL (3.5-5.2); Alkaline Phosphatase 202 U/L (35-105); Anion Gap 12.2 (5-19); Aspartate Amino Transferase 11 U/L (0-32); Blood Urea Nitrogen 23 mg/dL (8-23); Calcium 9.2 mg/dL (8.5-10.5); Carbon Dioxide 34 mmol/L (22-29); Chloride 98 mmol/L (98-107); Creatinine Clr Calc Pharmacy 28.8783; Ferritin 186 ng/mL (15-150); Globulin 2.8 g/dL (1.3-4.6); Glucose 150 mg/dL (65-115); Iron 69 ug/dL (37-145); Osmolality Calculated 297 mOsm/kg (285-295); Potassium 4.2 mmol/L (3.5-5.1); Sodium 140 mmol/L (136-145); Total Iron Binding Capacity 300 mcg/dl; Total Protein 6.3 g/dL (6.6-8.7); Unsaturated Iron Binding 231 ug/dL (112-347)
== END 2024-11-23 23:59 | disposition home or self-care (01) ==
PROVIDERS: Nurse Practitioner Family; PCP Family Medicine; Visit Provider Internal Medicine Hematology & Oncology
DX: D50.9 Iron deficiency anemia, unspecified (principal); Z90.13 Acquired absence of bilateral breasts and nipples; Z85.3 Personal history of malignant neoplasm of breast; F17.210 Nicotine dependence, cigarettes, uncomplicated; Z79.899 Other long term (current) drug therapy; Z08 Encounter for follow-up examination after completed treatment for malignant neoplasm; E87.6 Hypokalemia; Z92.21 Personal history of antineoplastic chemotherapy
CPT/HCPCS: 36415; 80053; 82728; 83540; 83550; 85025; 99214

== ENCOUNTER 2024-12-26 14:15 | Emergency (ER) | payer MEDICARE, SELFPAY ==
[2024-12-26 14:51] VITALS: BP 88/46; PULSE 85; RESP 18; TEMP 36.5; O2SAT 92
--- NOTE | 2024-12-26 15:00 | USR_ITS ---
PROCEDURE INFORMATION: Exam: US Duplex Right Lower Extremity Veins, Limited Exam date and time: 12/26/2024 3:51 PM Age: 84 years old Clinical indication: Edema, localized; Lower extremity, right; Additional info: Swelling TECHNIQUE: Imaging protocol: Real-time duplex ultrasound of the right extremity with 2-D ortiz scale, color Doppler flow and spectral waveform analysis including responses to compression and other maneuvers (when performed) with image documentation. Limited exam was focused on the right lower extremity veins. COMPARISON: CT abdomen pelvis wo con [id number] 06/27/2022 2:49 PM FINDINGS: Right deep veins: Unremarkable. The common femoral, femoral, proximal profunda femoral, popliteal, posterior tibial and peroneal arteries veins are patent without thrombus. Normal Doppler waveforms. Normal compressibility and/or augmentation response. Superficial veins: Greater saphenous vein at the saphenofemoral junction is patent without thrombus. Soft tissues: 3.9 x 2.2 x 5.7 cm complex collection along the lateral aspect of the lower leg, concerning for a hematoma. US/[place] [id number] IMPRESSION: 1. No sonographic evidence of deep vein thrombosis. 2. 3.9 x 2.2 x 5.7 cm complex collection along the lateral aspect of the lower leg, concerning for a hematoma.
--- NOTE | 2024-12-26 15:14 | W.ED.EXTPRO ---
HPI - Extremity Problem General: Chief complaint: Extremity Problem,Nontraumatic Stated complaint: swelling and pain in rt leg Time Seen by Provider: 12/26/24 14:22 History of Present Illness: 84-year-old female with a history of mild congestive heart failure, tobacco dependence, COPD, A-fib on chronic Eliquis anticoagulation, hypertension. Chronic kidney disease, diabetes and chronic lower extremity swelling who presents emergency room with right-sided pain and swelling. She had fallen and bruised her upper paris area. She has had worsening swelling there some purplish discoloration. Also some redness and warmth. She had seen her primary care who did not think she needed antibiotics at this time. She then went to urgent care who said that she did need antibiotics and called submentum but she did not fill them. She says that the urgent care sent her to the emergency room she did not come till today to have evaluation with ultrasound of her leg because she might be bleeding inside of it. Related Data Home Medications Medication Instructions Recorded Confirmed fluticasone propionate 50 2 spray intranasal DAILY PRN 06/27/22 12/25/24 mcg/actuation nasal Allergy Symptoms spray,suspension (Flonase Allergy Relief) albuterol sulfate 90 mcg/actuation 2 puff inhalation 6XD PRN 02/19/23 12/25/24 aerosol inhaler (Ventolin HFA) Shortness Of Breath diphenhydramine HCl 25 mg capsule 25 mg PO BEDTIME PRN Allergy 02/19/23 12/25/24 (Benadryl) Symptoms amiodarone 200 mg tablet 200 mg PO QAM 02/06/24 12/25/24 buspirone 5 mg tablet 5 mg PO BEDTIME PRN Anxiety 02/06/24 12/25/24 multivitamin 1 tab PO DAILY 02/06/24 12/25/24 carvedilol 6.25 mg tablet 6.25 mg PO BID 07/14/24 12/25/24 glipizide 5 mg tablet 5 mg PO DAILY 07/14/24 12/25/24 loratadine 10 mg tablet 10 mg PO DAILY 07/14/24 12/25/24 mupirocin 2 % topical ointment topical 11/04/24 12/25/24 Previous Rx's Medication Instructions Recorded flash glucose scanning reader #1 ea 03/04/22 (FreeStyle Odell 14 Day [place]) flash glucose sensor (FreeStyle #2 ea 03/04/22 Odell 14 Day Sensor kit) blood-glucose meter #1 ea 03/06/22 pen needle, diabetic 32 gauge x #100 ea 04/12/22 (TechLITE Pen Needle) ondansetron 4 mg disintegrating 4 mg PO Q8H PRN nausea and 06/27/22 tablet vomiting #15 tabs overnight oximetry #1 ea 12/17/22 breast prosthesis bilateral and #1 ea 02/05/23 bras x4 ipratropium 0.5 mg-albuterol 3 mg 3 ml inhalation Q4H PRN shortness 02/21/23 (2.5 mg base)/3 mL nebulization of breath or wheezing #180 mL soln home oxygen 2l/m continuous #1 ea 06/04/23 CPAP set to 6-16 with supplies #1 ea 09/15/23 RSV - pre f3 #1 ea 10/09/23 blood sugar diagnostic (Blood #120 ea 10/31/23 Glucose Test strips) atorvastatin 80 mg tablet 80 mg PO BEDTIME #90 tabs 01/05/24 Inogen portable oxygen device and #1 ea 02/19/24 supplies budesonide 160 mcg-glycopyr 9 2 inh inhalation BID #10.7 grams 02/19/24 mcg-formot 4.8 mcg/actuation HFA inhaler (Breztri Aerosphere) famotidine 20 mg tablet 20 mg PO BID #180 tabs 09/23/24 apixaban 5 mg tablet (Eliquis) 5 mg PO Q12H #180 tabs 10/13/24 lisinopril 2.5 mg tablet 2.5 mg PO DAILY #90 tabs 10/20/24 montelukast 10 mg tablet 10 mg PO DAILY #90 tabs 10/20/24 insulin glargine 100 unit/mL (3 See Rx Instructions .Route 10/27/24 mL) subcutaneous pen (Lantus .COMPLEX #15 mL Solostar U-100 Insulin) oxycodone 15 mg tablet 15 mg PO Q6H PRN pain 30 days #120 12/01/24 tabs torsemide 20 mg tablet 20 - 40 mg (1 - 2 x 20 mg) PO QAM 12/01/24 #120 tabs metolazone 5 mg tablet 5 mg PO DAILY #30 tabs 12/14/24 potassium chloride 10 mEq 10 meq PO DAILY #90 tabs 12/16/24 tablet,extended release linezolid 600 mg tablet (Zyvox) 600 mg PO BID 6 days #12 tabs 12/25/24 Allergies Allergy/AdvReac Type Severity Reaction Status Date / Time adhesive tape Allergy Unknown Unknown Verified 12/26/24 14:55 bacitracin Allergy Unknown Unknown Verified 12/26/24 14:55 [From Neosporin ([id number])] codeine Allergy Unknown Unknown Verified 12/26/24 14:55 doxycycline Allergy Unknown Unknown Verified 12/26/24 14:55 neomycin Allergy Unknown Unknown Verified 12/26/24 14:55 [From Neosporin ([id number])] penicillamine Allergy Unknown Unknown Verified 12/26/24 14:55 Penicillins Allergy Unknown Unknown Verified 12/26/24 14:55 polymyxin B Allergy Unknown Unknown Verified 12/26/24 14:55 [From Neosporin ([id number])] prochlorperazine Allergy Unknown Unknown Verified 12/26/24 14:55 [From Compazine] Sulfa (Sulfonamide Allergy Unknown Unknown Verified 12/26/24 14:55 Antibiotics) diltiazem Allergy ALGY-Difficulty Verified 12/26/24 14:55 Breathing Review of Systems Narrative: Constitutional symptoms: Negative except as documented in HPI. Skin symptoms: Negative except as documented in HPI. Eye symptoms: Negative except as documented in HPI. ENMT symptoms: Negative except as documented in HPI. Respiratory symptoms: Negative except as documented in HPI. Cardiovascular symptoms: Negative except as documented in HPI. Gastrointestinal symptoms: Negative except as documented in HPI. Genitourinary symptoms: Negative except as documented in HPI. Musculoskeletal symptoms: Negative except as documented in HPI. Neurologic symptoms: Negative except as documented in HPI. Psychiatric symptoms: Negative except as documented in HPI. Endocrine symptoms: Negative except as documented in HPI. PFSH ED PFSH: Medical History Heart failure with mildly reduced ejection fraction Nicotine dependence, cigarettes, with unspecified nicotine-induced disorders Bilateral breast cancer Asthma Anxiety Acute respiratory failure with hypoxia and hypercarbia CHF (congestive heart failure) COPD (chronic obstructive pulmonary disease) Respiratory failure Paroxysmal atrial fibrillation MYRA (generalized anxiety disorder) Hypersomnia Chronic anticoagulation Atrial fib/flutter, transient Osteoporosis History of COVID-19 Jul 2021 Pneumonia Chronic kidney disease Diabetic peripheral neuropathy Anemia Carotid artery disease B12 deficiency Chronic pain CVA (cerebral vascular accident) History of nonmelanoma skin cancer Atopic dermatitis Seasonal allergies Renal artery stenosis Descending thoracic aortic aneurysm AAA (abdominal aortic aneurysm) Status post stent graft repair Obesity HTN (hypertension) Dyslipidemia Diabetes 1.5, managed as type 2 Surgical History History of total mastectomy of left breast 04/[address] Vo at [place], [place] History of stent insertion of renal artery History of aortic aneurysm repair S/P mastectomy (08/2009) Right modified radical mastectomy S/P cholecystectomy S/P tonsillectomy S/P hysterectomy Family History Other Stroke Social History Smoking and tobacco/nicotine status: current every day tobacco/nicotine user cigarettes Packs smoked per day: 0.5 Years cigarettes smoked: 66 Alcohol intake: never Substance/Drug Use: never Physical Exam Narrative: EXAM NARRATIVE: General: Alert, no acute distress. Skin: Warm, dry. Bruising of the upper [place]is area. Some surrounding erythema that is slightly warmer than her other leg. She has 2-3+ pitting edema of both legs. With the right being a bit worse than the left. Head: Normocephalic, atraumatic. Neck: Supple, trachea midline. Eye: Extraocular movements are intact. Ears, nose, mouth and throat: mucosa moist. Cardiovascular: Regular, Normal peripheral perfusion. Respiratory: Lungs are clear to auscultation, respirations are non-labored, breath sounds are equal, Symmetrical chest wall expansion. Gastrointestinal: Soft, Nontender, Non distended Musculoskeletal: Normal ROM, no deformity. Neurological: Alert and oriented, No focal neurological deficit observed. Psychiatric: Cooperative, appropriate mood & affect. Course Vital Signs: Vital signs: Vital Signs Temperature 97.7 F 12/26/24 14:51 Pulse Rate 85 12/26/24 14:51 Respiratory Rate 18 12/26/24 14:51 Blood Pressure 88/46 12/26/24 14:51 Pulse Oximetry 92 12/26/24 14:51 MDM - Extremity (Nontraumatic) Medical Decision Making Ultrasound of the lower extremity shows some bruisingBut no clotting. This would have been expected. This was reviewed and interpreted by myself the emergency room physician. I also reviewed the radiology report. Assessment and plan: Bruising of the right lower extremity. Chronic anticoagulation ?Discussed that she can follow with her PCP decide if she wants to do antibiotics or not since she is undecided. - Discharged home - Discussed plan with patient. Answered any questions. - Evaluation and treatment of this problem were appropriate in the emergency setting. Lab Data 12/26/24 15:15 12/26/24 16:01 Laboratory Results WBC 8.82 10^3/uL (3.29-11.43) 12/26/24 15:15 RBC 4.03 10^6/uL (3.85-5.65) 12/26/24 15:15 Hgb 11.80 g/dL (11.27-16.99) 12/26/24 15:15 Hct 36.5 % (36-47) 12/26/24 15:15 MCV 90.6 fl (85-98) 12/26/24 15:15 MCH 29.3 pg (27-33) 12/26/24 15:15 MCHC 32.3 g/dL (30-55) 12/26/24 15:15 RDW 15.1 % (12.1-15.1) 12/26/24 15:15 Plt Count 378 10^3/cmm (157-399) 12/26/24 15:15 MPV 9.6 fL (7.4-10.4) 12/26/24 15:15 Neut % (Auto) 80.4 % 12/26/24 15:15 Lymph % (Auto) 8.2 % 12/26/24 15:15 Clay % (Auto) 6.8 % 12/26/24 15:15 Eos % (Auto) 4.2 % 12/26/24 15:15 Baso % (Auto) 0.2 % 12/26/24 15:15 Neut # (Auto) 7.09 10^3/uL (1.8-7.7) 12/26/24 15:15 Lymph # (Auto) 0.7 10^3/uL (0.8-4.8) L 12/26/24 15:15 Clay # (Auto) 0.6 10^3/uL (0.2-0.9) 12/26/24 15:15 Eos # (Auto) 0.4 10^3/uL (0.0-0.8) 12/26/24 15:15 Baso # (Auto) 0.0 10^3/uL (0.0-0.1) 12/26/24 15:15 Nucleated RBC % (auto) 0 % 12/26/24 15:15 Nucleated RBCs # 0.0 /100WBC 12/26/24 15:15 ESR 23 mm/hr (0-15) H 12/26/24 15:15 Sodium Cancelled 12/26/24 15:15 Potassium Cancelled 12/26/24 15:15 Chloride Cancelled 12/26/24 15:15 Carbon Dioxide Cancelled 12/26/24 15:15 Anion Gap Cancelled 12/26/24 15:15 BUN Cancelled 12/26/24 15:15 Creatinine Cancelled 12/26/24 15:15 GFR Calculation Cancelled 12/26/24 15:15 Glucose Cancelled 12/26/24 15:15 Calculated Osmolality Cancelled 12/26/24 15:15 Calcium Cancelled 12/26/24 15:15 Total Bilirubin Cancelled 12/26/24 15:15 AST Cancelled 12/26/24 15:15 ALT Cancelled 12/26/24 15:15 Alkaline Phosphatase Cancelled 12/26/24 15:15 C-Reactive Protein Cancelled 12/26/24 15:15 Total Protein Cancelled 12/26/24 15:15 Albumin Cancelled 12/26/24 15:15 Globulin Cancelled 12/26/24 15:15 All radiology interpretation(s) finalized by discharge Discharge Plan Discharge Patient Disposition: Home Clinical Impression: Traumatic ecchymosis of right lower leg, Chronic anticoagulation Condition: Stable Prescriptions: No Action (DME) overnight oximetry See Rx Instructions .Route .MEDSUPPLY Qty: 1 0RF Rx Inst[facility]: [facility].8 mcg/actuation HFA aerosol inhaler 2 inh inhalation BID Qty: 10.7 6RF (DME) Inogen portable oxygen device and supplies See Rx Instructions .Route .MEDSUPPLY Qty: 1 0RF Rx Instructions: As directed mupirocin 2 % ointment topical metolazone 5 mg tablet 5 mg PO DAILY Qty: 30 0RF (DME) FreeStyle Odell 14 Day Sensor Kit See Rx Instructions .Route Qty: 2 11RF Rx Instructions: As directed ([facility]) FreeStyle Odell 14 Day [place] Misc See Rx Instructions .Route Qty: 1 0RF Rx Instructions: As directed ([facility]) RSV - pre f3 See Rx Instructions .Route .MEDSUPPLY Qty: 1 0RF Rx Instructions: As directed linezolid [Zyvox] 600 mg tablet 600 mg PO BID 6 Days Qty: 12 0RF ([facility]) blood-glucose meter Misc See Rx Instructions .Route Qty: 1 0RF Rx Instructions: As directed with testing strips ([facility]) pen needle, diabetic [TechLITE Pen Needle] 32 gauge x 5/32 needle See Rx Instructions .Route Qty: 100 0RF Rx Instructions: As directed ([facility]) breast prosthesis bilateral and bras x4 See Rx Instructions .Route .MEDSUPPLY Qty: 1 0RF Rx Instructions: As directed ([facility]) home oxygen 2l/m continuous See Rx Instructions .Route .MEDSUPPLY Qty: 1 0RF Rx Instructions: As directed ([facility]) CPAP set to 6-16 with supplies See Rx Instructions .Route .MEDSUPPLY Qty: 1 0RF Rx Instructions: As directed ([facility]) Blood Glucose Test Strip See Rx Instructions .Route Qty: 120 12RF Rx Instructions: free style test strips - test qid atorvastatin 80 mg tablet 80 mg PO BEDTIME Qty: 90 3RF famotidine 20 mg tablet 20 mg PO BID Qty: 180 0RF Eliquis 5 mg tablet 5 mg PO Q12H Qty: 180 3RF lisinopril 2.5 mg tablet 2.5 mg PO DAILY Qty: 90 1RF montelukast 10 mg tablet 10 mg PO DAILY Qty: 90 1RF Lantus Solostar U-100 Insulin 100 unit/mL (3 mL) insulin pen See Rx Instructions .ROUTE .COMPLEX Qty: 15 3RF Dose Instruction: inject 14 units UNDER THE SKIN ONCE DAILY Rx Instructions: inject 14 units UNDER THE SKIN ONCE DAILY torsemide 20 mg tablet 20 - 40 mg PO QAM Qty: 120 1RF oxycodone 15 mg tablet 15 mg PO Q6H PRN (Reason: pain) 30 Days Qty: 120 0RF potassium chloride 10 mEq tablet extended release 10 meq PO DAILY Qty: 90 0RF fluticasone propionate [Flonase Allergy Relief] 50 mcg/actuation spray,suspension 2 spray intranasal DAILY PRN (Reason: Allergy Symptoms) Rx Instructions: administer into each nostril ondansetron 4 mg tablet,disintegrating 4 mg PO Q8H PRN (Reason: nausea and vomiting) Qty: 15 0RF diphenhydramine HCl [Benadryl] 25 mg Capsule 25 mg PO BEDTIME PRN (Reason: Allergy Symptoms) albuterol sulfate [Ventolin HFA] 90 mcg/actuation HFA aerosol inhaler 2 puff inhalation 6XD PRN (Reason: Shortness Of Breath) ipratropium-albuterol 0.5 mg-3 mg(2.5 mg base)/3 mL solution for nebulization 3 ml inhalation Q4H PRN (Reason: shortness of breath or wheezing) Qty: 180 0RF Rx Instructions: until breathing returns to target peak flow/parameters buspirone 5 mg tablet 5 mg PO BEDTIME PRN (Reason: Anxiety) amiodarone 200 mg tablet 200 mg PO QAM multivitamin Tablet 1 tab PO DAILY carvedilol 6.25 mg tablet 6.25 mg PO BID loratadine 10 mg tablet 10 mg PO DAILY glipizide 5 mg tablet 5 mg PO DAILY Discharge Orders: Discharge ED (Routine); Ordered 12/26/24 Ordered By: Anitha Mullins Referrals: Kofi Lopez MD [Primary Care Provider] - Discharge Diet: Usual diet Discharge Activity: Increase activity as tolerated Patient Instructions: Contusion in Adults (ED), Opioid Safety, Pain Management Activity Restrictions/Additional Instructions: Thank you for choosing [facility] for your healthcare needs today. Please realize this is an emergency room and that we are providing you with a medical screening exam and this may not be complete and all inclusive of all the testing and or work up that you may need to determine your ailment or severity of your illness. You have been screened and evaluated and felt safe for discharge. Health conditions do change or evolve sometimes and as such it is important that you follow up with your Primary Doctor to be re checked, 3-5 days is a general good time frame for follow up. You are always welcome to return to the ED for re assessment if your symptoms are worsening or you have new concerns Coding Level of Care Code ED Travel Service Consultant for Betty Vela
[2024-12-26 15:21] LABS: Basophils % 0.2 %; Eosinophils # 0.4 10^3/uL (0.0-0.8); Eosinophils % 4.2 %; Hematocrit 36.5 % (36-47); Lymphocytes # 0.7 10^3/uL (0.8-4.8); Lymphocytes % 8.2 %; Mean Corpuscular HGB Conc 32.3 g/dL (30-55); Mean Corpuscular Hemoglobin 29.3 pg (27-33); Mean Corpuscular Volume 90.6 fl (85-98); Mean Platelet Volume 9.6 fL (7.4-10.4); Monocytes # 0.6 10^3/uL (0.2-0.9); Monocytes % 6.8 %; Neutrophils # 7.09 10^3/uL (1.8-7.7); Neutrophils % 80.4 %; Nucleated Red Blood Cells % 0 %; Platelet Count 378 10^3/cmm (157-399); Red Blood Count 4.03 10^6/uL (3.85-5.65); Red Cell Distribution Width 15.1 % (12.1-15.1); White Blood Count 8.82 10^3/uL (3.29-11.43)
[2024-12-26 15:50] LABS: Erythrocyte Sedimentation Rate 23 mm/hr (0-15)
[2024-12-26 16:41] LABS: Alanine Aminotransferase 11 U/L (0-33); Albumin Level 3.3 g/dL (3.5-5.2); Alkaline Phosphatase 250 U/L (35-105); Anion Gap 11.4 (5-19); Aspartate Amino Transferase 20 U/L (0-32); Blood Urea Nitrogen 44 mg/dL (8-23); C Reactive Protein 34.3 mg/L (0.0-4.9); Calcium 8.9 mg/dL (8.5-10.5); Chloride 86 mmol/L (98-107); Globulin 3.5 g/dL (1.3-4.6); Glucose 226 mg/dL (65-115); Osmolality Calculated 298 mOsm/kg (285-295); Potassium 3.4 mmol/L (3.5-5.1); Sodium 135 mmol/L (136-145); Total Bilirubin 1.2 mg/dL (0.15-1.2); Total Protein 6.8 g/dL (6.6-8.7)
[2024-12-26 16:43] LABS: Carbon Dioxide 41 mmol/L (22-29)
== END 2024-12-26 16:29 | disposition home or self-care (01) ==
PROVIDERS: Emergency Provider Emergency Medicine; PCP Family Medicine
DX: S80.11XA Contusion of right lower leg, initial encounter (principal); Z79.01 Long term (current) use of anticoagulants; F17.210 Nicotine dependence, cigarettes, uncomplicated; Z86.73 Personal history of transient ischemic attack (TIA), and cerebral infarction without residual deficits; E78.5 Hyperlipidemia, unspecified; E13.22 Other specified diabetes mellitus with diabetic chronic kidney disease; I13.0 Hypertensive heart and chronic kidney disease with heart failure and stage 1 through stage 4 chronic kidney disease, or unspecified chronic kidney disease; N18.9 Chronic kidney disease, unspecified; I50.9 Heart failure, unspecified; J44.9 Chronic obstructive pulmonary disease, unspecified; X58.XXXA Exposure to other specified factors, initial encounter
CPT/HCPCS: 80053; 85025; 85651; 86140; 93971; 99284

== ENCOUNTER 2025-01-05 07:27 | Inpatient (IN) | payer MEDICARE, SELFPAY ==
[2025-01-05] VITALS (45 sets, daily range): BP systolic 85–127; BP diastolic 43–75; PULSE 57–108; RESP 16–32; TEMP 36.9; O2SAT 80–100; BMI 31.8; BMI 30.8
--- NOTE | 2025-01-05 07:35 | XR_ITS ---
WS: [id number] XR chest 1V portable [id number] REASON FOR EXAM: dyspnea/cough FINDINGS: Chest is stable compared to previous examination 09/25/2024. Significant tortuosity and ectasia of the thoracic aorta. Significant cardiomegaly. Moderate central venous congestion. Calcified granulomatous disease bilaterally. No acute pulmonary parenchymal or pleural abnormality. Moderate in both shoulder joints and significant degenerative spondylosis in the thoracic spine. XR/XR chest 1V portable [id number] IMPRESSION: Stable chest without acute abnormality.
--- NOTE | 2025-01-05 07:37 | ECG_ITS ---
[facility] Test Date: 2025-01-05 Pat Name: Paloma Slater Department: Room: Gender: Female Stem Sizer: : 1940 Requested By: Duran Yeager Order Number: [id number] Latisha MD: Jazmín Aguiar M.D. Measurements Intervals [place] Rate: 76 P: 0 AR: 0 QRS: 229 QRSD: 167 T: 63 QT: 479 QTc: 540 Interpretive Statements ATRIAL FIBRILLATION RIGHT AXIS DEVIATION [QRS AXIS > 100] INTRAVENTRICULAR CONDUCTION DELAY [130+ ms QRS DURATION] Compared to ECG 09/25/2024 15:58:53 Right-axis deviation now present Intraventricular conduction delay now present Left bundle-branch block no longer present Electronically Signed On 01-05-2025 17:30:58 CONFERENCE PLANNER by Jazmín Aguiar M.D. [email or web address]
[2025-01-05 08:35] LABS: Eosinophils % 0.6 %; Hematocrit 32.4 % (36-47); Lymphocytes # 0.4 10^3/uL (0.8-4.8); Lymphocytes % 7.5 %; Mean Corpuscular HGB Conc 30.6 g/dL (30-55); Mean Corpuscular Hemoglobin 28.9 pg (27-33); Mean Corpuscular Volume 94.5 fl (85-98); Mean Platelet Volume 10.1 fL (7.4-10.4); Monocytes # 0.7 10^3/uL (0.2-0.9); Monocytes % 14.5 %; Neutrophils # 3.81 10^3/uL (1.8-7.7); Nucleated Red Blood Cells % 0 %; Platelet Count 236 10^3/cmm (157-399); Red Blood Count 3.43 10^6/uL (3.85-5.65); Red Cell Distribution Width 15.7 % (12.1-15.1); White Blood Count 4.95 10^3/uL (3.29-11.43)
[2025-01-05 08:49] LABS: Alanine Aminotransferase 13 U/L (0-33); Alkaline Phosphatase 198 U/L (35-105); Anion Gap 13.7 (5-19); Aspartate Amino Transferase 20 U/L (0-32); Blood Urea Nitrogen 64 mg/dL (8-23); Calcium 8.4 mg/dL (8.5-10.5); Carbon Dioxide 36 mmol/L (22-29); Chloride 90 mmol/L (98-107); Creatinine Clr Calc Pharmacy 16.8798; Globulin 3.1 g/dL (1.3-4.6); Glucose 46 mg/dL (65-115); Osmolality Calculated 297 mOsm/kg (285-295); Potassium 3.7 mmol/L (3.5-5.1); Sodium 136 mmol/L (136-145); Total Bilirubin 0.6 mg/dL (0.15-1.2); Total Protein 6.1 g/dL (6.6-8.7)
--- NOTE | 2025-01-05 09:04 | W.ED.URI ---
HPI - URI/Sore Throat General: Chief Complaint: Upper Respiratory Infection Stated Complaint: SOB Time Seen by Provider: 01/05/25 07:34 History of Present Illness: 84-year-old female presents emergency room complaining of flulike symptoms dizzy moderately productive cough myalgias fatigue for the last 3 days worsened overnight. No vomiting no diarrhea. Patient is on oral anticoagulants. Denies any medic easier melena hematemesis cough and emesis was seen a few days ago for hematoma on her [place]. Associated symptoms: Reports nausea and vomiting; Deny abdominal pain, chills, chest pain or fever(s) Related Data Home Medications ?Medication ?Instructions ?Recorded ?Confirmed diphenhydramine HCl 25 mg capsule 25 mg PO BEDTIME PRN Allergy 02/19/23 01/05/25 (Benadryl) Symptoms amiodarone 200 mg tablet 200 mg PO QAM 02/06/24 01/05/25 buspirone 5 mg tablet 5 mg PO BEDTIME PRN Anxiety 02/06/24 01/05/25 multivitamin 1 tab PO DAILY 02/06/24 01/05/25 carvedilol 6.25 mg tablet 6.25 mg PO BID 07/14/24 01/05/25 glipizide 5 mg tablet 5 mg PO DAILY 07/14/24 01/05/25 loratadine 10 mg tablet 10 mg PO DAILY 07/14/24 01/05/25 mupirocin 2 % topical ointment 1 applic topical BID PRN Skin 11/04/24 01/05/25 Irritation insulin glargine 100 unit/mL (3 14 unit SUBCUT QAM 01/05/25 01/05/25 mL) subcutaneous pen (Lantus Solostar U-100 Insulin) Previous Rx's ?Medication ?Instructions ?Recorded flash glucose scanning reader #1 ea 03/04/22 (FreeStyle [place] 14 Day [place]) flash glucose sensor (FreeStyle #2 ea 03/04/22 Odell 14 Day Sensor kit) blood-glucose meter #1 ea 03/06/22 pen needle, diabetic 32 gauge x #100 ea 04/12/2232 (TechLITE Pen Needle) overnight oximetry #1 ea 12/17/22 breast prosthesis bilateral and #1 ea 02/05/23 bras x4 home oxygen 2l/m continuous #1 ea 06/04/23 CPAP set to 6-16 with supplies #1 ea 09/15/23 RSV - pre f3 #1 ea 10/09/23 blood sugar diagnostic (Blood #120 ea 10/31/23 Glucose Test strips) atorvastatin 80 mg tablet 80 mg PO BEDTIME #90 tabs 01/05/24 Inogen portable oxygen device and #1 ea 02/19/24 supplies budesonide 160 mcg-glycopyr 9 2 inh inhalation BID #10.7 grams 02/19/24 mcg-formot 4.8 mcg/actuation HFA inhaler (Breztri Aerosphere) famotidine 20 mg tablet 20 mg PO BID #180 tabs 09/23/24 apixaban 5 mg tablet (Eliquis) 5 mg PO Q12H #180 tabs 10/13/24 lisinopril 2.5 mg tablet 2.5 mg PO DAILY #90 tabs 10/20/24 montelukast 10 mg tablet 10 mg PO DAILY #90 tabs 10/20/24 torsemide 20 mg tablet 20 - 40 mg (1 - 2 x 20 mg) PO QAM 12/01/24 #120 tabs metolazone 5 mg tablet 5 mg PO DAILY #30 tabs 12/14/24 potassium chloride 10 mEq 10 meq PO DAILY #90 tabs 12/16/24 tablet,extended release linezolid 600 mg tablet (Zyvox) 600 mg PO BID 6 days #12 tabs 12/25/24 oxycodone 15 mg tablet 15 mg PO Q6H PRN pain 30 days #120 12/31/24 tabs Allergies Allergy/AdvReac Type Severity Reaction Status Date / Time adhesive tape Allergy Unknown Unknown Verified 12/26/24 14:55 bacitracin (From Neosporin Allergy Unknown Unknown Verified 12/26/24 14:55 ([id number])) codeine Allergy Unknown Unknown Verified 12/26/24 14:55 doxycycline Allergy Unknown Unknown Verified 12/26/24 14:55 neomycin (From Neosporin Allergy Unknown Unknown Verified 12/26/24 14:55 ([id number])) penicillamine Allergy Unknown Unknown Verified 12/26/24 14:55 Penicillins Allergy Unknown Unknown Verified 12/26/24 14:55 polymyxin B (From Neosporin Allergy Unknown Unknown Verified 12/26/24 14:55 ([id number])) prochlorperazine (From Allergy Unknown Unknown Verified 12/26/24 14:55 Compazine) Sulfa (Sulfonamide Allergy Unknown Unknown Verified 12/26/24 14:55 Antibiotics) diltiazem Allergy ALGY-Difficulty Verified 12/26/24 14:55 Breathing Review of Systems Const: Denies: fever(s) or chills Card: Denies: chest pain Resp: Denies: dyspnea GI: Reports: nausea and vomiting; Denies: abdominal pain : Denies: dysuria, urinary frequency or urinary urgency Musc: Denies: neck pain or back pain Skin/Breast: Denies: rash PFSH ED PFSH: Medical History Heart failure with mildly reduced ejection fraction Nicotine dependence, cigarettes, with unspecified nicotine-induced disorders Bilateral breast cancer Asthma Anxiety Acute respiratory failure with hypoxia and hypercarbia CHF (congestive heart failure) COPD (chronic obstructive pulmonary disease) Respiratory failure Paroxysmal atrial fibrillation MYRA (generalized anxiety disorder) Hypersomnia Chronic anticoagulation Atrial fib/flutter, transient Osteoporosis History of COVID-19 Jul 2021 Pneumonia Chronic kidney disease Diabetic peripheral neuropathy Anemia Carotid artery disease B12 deficiency Chronic pain CVA (cerebral vascular accident) History of nonmelanoma skin cancer Atopic dermatitis Seasonal allergies Renal artery stenosis Descending thoracic aortic aneurysm AAA (abdominal aortic aneurysm) Status post stent graft repair Obesity HTN (hypertension) Dyslipidemia Diabetes 1.5, managed as type 2 Surgical History History of total mastectomy of left breast 04/[address] Vo at [place], [place] History of stent insertion of renal artery History of aortic aneurysm repair S/P mastectomy (08/2009) Right modified radical mastectomy S/P cholecystectomy S/P tonsillectomy S/P hysterectomy Family History Other Stroke Social History Smoking and tobacco/nicotine status: current every day tobacco/nicotine user cigarettes Packs smoked per day: 0.5 Years cigarettes smoked: 66 Alcohol intake: never Substance/Drug Use: never Physical Exam Const: GENERAL APPEARANCE: cooperative ORIENTATION/CONSCIOUSNESS: Yes awake, Yes oriented to person, Yes oriented to place and Yes oriented to time HENMT: COMMON NORMALS: normocephalic, atraumatic and hearing grossly normal bilaterally HEAD & SCALP: normocephalic and atraumatic Resp: AUSCULTATION: rhonchi and wheezes Cardio: COMMON NORMALS: regular rate, regular rhythm and No murmurs present (Cardio) RATE: regular rate RHYTHM: regular rhythm GI: COMMON NORMALS: Soft to palpation and No hepatosplenomegaly present AUSCULTATION: Yes normoactive bowel sounds PALPATION: Yes Soft to palpation, No Tenderness to palpation present (GI), No Guarding due to palpation present (GI) and Yes No hepatosplenomegaly present Extremity: COMMON NORMALS: normal to inspection, capillary refill normal, no clubbing, cyanosis or edema, no calf tenderness and no pedal edema Neuro: SENSORIUM/ORIENTATION: Yes oriented to person, Yes oriented to place and Yes oriented to time Skin: COMMON NORMALS: no rashes or lesions noted GENERAL SKIN EXAM: no rashes or lesions noted Course Vital Signs: Vital signs: Vital Signs Temperature 98.5 F 01/05/25 07:35 Pulse Rate 82 01/05/25 14:34 Respiratory Rate 20 H 01/05/25 12:15 Blood Pressure 90/43 01/05/25 14:34 Pulse Oximetry 99 01/05/25 14:34 Oxygen Delivery Me thod Nasal Cannula 01/05/25 14:34 Oxygen Flow Rate 5 01/05/25 14:34 Fraction of Inspir ed Oxygen 30 01/05/25 13:47 MDM - URI/Sore Throat Medical Decision Making Patient blood pressure was low initially she did respond with fluids given her MAP stayed above 60-65 continuously. However she is hypercapnic has a positive flu swab. Additionally her hemoglobin is dropped a fair amount she has a mild acute kidney injury. Will admit to the hospitalist discussed findings. Hospitalist concerned about the blood loss and asked that we do a CT to evaluate for retroperitoneal bleed as a source of blood loss. CT was done was negative. Medical Records I reviewed the patient's medical records. Lab Data I reviewed the patient's lab results. 01/05/25 08:07 01/05/25 08:07 Radiology Impressions Chest X-Ray 01/05/25 07:35 IMPRESSION: Stable chest without acute abnormality. Abdomen/Pelvis CT 01/05/25 12:03 IMPRESSION: 1. Cardiomegaly. 2. Aortic endograft repair with biiliac extension is stable in appearance. 3. Prior cholecystectomy and hysterectomy. 4. Sigmoid diverticulosis. 5. Small trace of perihepatic fluid. 6. No other remarkable findings. Laboratory Results WBC 4.95 10^3/uL (3.29-11.43) 01/05/25 08:07 RBC 3.43 10^6/uL (3.85-5.65) L 01/05/25 08:07 Hgb 9.90 g/dL (11.27-16.99) L 01/05/25 08:07 Hct 32.4 % (36-47) L 01/05/25 08:07 MCV 94.5 fl (85-98) 01/05/25 08:07 MCH 28.9 pg (27-33) 01/05/25 08:07 MCHC 30.6 g/dL (30-55) 01/05/25 08:07 RDW 15.7 % (12.1-15.1) H 01/05/25 08:07 Plt Count 236 10^3/cmm (157-399) 01/05/25 08:07 MPV 10.1 fL (7.4-10.4) 01/05/25 08:07 Neut % (Auto) 77.0 % 01/05/25 08:07 Lymph % (Auto) 7.5 % 01/05/25 08:07 Perkins % (Auto) 14.5 % 01/05/25 08:07 Eos % (Auto) 0.6 % 01/05/25 08:07 Baso % (Auto) 0.0 % 01/05/25 08:07 Neut # (Auto) 3.81 10^3/uL (1.8-7.7) 01/05/25 08:07 Lymph # (Auto) 0.4 10^3/uL (0.8-4.8) L 01/05/25 08:07 Perkins # (Auto) 0.7 10^3/uL (0.2-0.9) 01/05/25 08:07 Eos # (Auto) 0.0 10^3/uL (0.0-0.8) 01/05/25 08:07 Baso # (Auto) 0.0 10^3/uL (0.0-0.1) 01/05/25 08:07 Nucleated RBC % (auto) 0 % 01/05/25 08:07 Nucleated RBCs # 0.0 /100WBC 01/05/25 08:07 Specimen Type Arterial 01/05/25 09:53 Sample Site Radial, right 01/05/25 09:53 ABG pH 7.43 (7.35-7.45) 01/05/25 09:53 ABG pCO2 61.9 mmHg (35-45) H* 01/05/25 09:53 ABG pO2 203.0 mmHg (80.0-100.0) H 01/05/25 09:53 ABG PO2/FiO2 Ratio 563 01/05/25 09:53 ABG HCO3 40.6 mmol/L (22-26) H 01/05/25 09:53 ABG O2 Saturation > 99.1 01/05/25 09:53 ABG Base Excess 14.0 mmol/L (-2.0-2.0) H 01/05/25 09:53 Carlos Alberto Test Pos 01/05/25 09:53 A-a O2 Gradient Not Reportable 01/05/25 09:53 Hematocrit 31.6 % (37-47) L 01/05/25 09:53 Hgb O2 Saturation 98.1 % (95-100) 01/05/25 09:53 Carboxyhemoglobin 1.5 %THgb (0.4-20.1) 01/05/25 09:53 Methemoglobin 0.4 % (0.4-1.5) 01/05/25 09:53 Total Hemoglobin 10.3 g/dL (12-16) L 01/05/25 09:53 Sodium 137.0 mmol/L (131-143) 01/05/25 09:53 Potassium 3.5 mmol/L (3.5-5.0) 01/05/25 09:53 Glucose 30.0 mg/dL (70-115) L 01/05/25 09:53 Ionized Calcium 1.1 mmol/L (1.1-1.4) 01/05/25 09:53 O2 Delivery Device Nc 01/05/25 09:53 O2 Liters/Min 4.0 % 01/05/25 09:53 FiO2 36.0 % 01/05/25 09:53 Police Records Clerk ID Dayday 01/05/25 09:53 Sodium 136 mmol/L (136-145) 01/05/25 08:07 Potassium 3.7 mmol/L (3.5-5.1) 01/05/25 08:07 Chloride 90 mmol/L (98-107) L 01/05/25 08:07 Carbon Dioxide 36 mmol/L (22-29) H 01/05/25 08:07 Anion Gap 13.7 (5-19) 01/05/25 08:07 BUN 64 mg/dL (8-23) H 01/05/25 08:07 Creatinine 2.5 mg/dL (0.5-0.9) H 01/05/25 08:07 GFR Calculation Not Reportable 01/05/25 08:07 Glucose 46 mg/dL (65-115) L 01/05/25 08:07 POC Glucose 108 mg/dL (70-110) 01/05/25 12:09 Calculated Osmolality 297 mOsm/kg (285-295) H 01/05/25 08:07 Lactic Acid 0.8 mmol/L (0.5-2.2) 01/05/25 10:55 Calcium 8.4 mg/dL (8.5-10.5) L 01/05/25 08:07 Total Bilirubin 0.6 mg/dL (0.15-1.2) 01/05/25 08:07 AST 20 U/L (0-32) 01/05/25 08:07 ALT 13 U/L (0-33) 01/05/25 08:07 Alkaline Phosphatase 198 U/L (35-105) H 01/05/25 08:07 Troponin T Baseline 45 ng/L (0-10) H 01/05/25 10:55 Troponin T 120 Minute 40.83 ng/L (0-10) H 01/05/25 12:37 Delta Troponin T -4.17 ABS# (0-10) L 01/05/25 12:37 Total Protein 6.1 g/dL (6.6-8.7) L 01/05/25 08:07 Albumin 3.0 g/dL (3.5-5.2) L 01/05/25 08:07 Globulin 3.1 g/dL (1.3-4.6) 01/05/25 08:07 Coronavirus (PCR) Negative (Negative) 01/05/25 09:58 Influenza A (PCR) Positive (Negative) 01/05/25 09:58 Influenza Type B (PCR) Negative (Negative) 01/05/25 09:58 RSV (PCR) Negative (Negative) 01/05/25 09:58 All radiology interpretation(s) finalized by discharge Discharge Plan Discharge Patient Disposition: Placed in Observation Admit Provider: Jovanni Rose Clinical Impression: Acute and chronic respiratory failure with hypercapnia, Acute exacerbation of chronic obstructive pulmonary disease, CKD (chronic kidney disease), stage IV, Acute on chronic anemia, Current use of filler leaf cutter long anticoagulation Condition: Stable Coding Level of Care Code ED Eye Glass Frame Polisher for Betty Vela
[2025-01-05] MEDS: ipratropium-albuterol 3 mL Neb INHALATION ×2 (09:55→22:57)
[2025-01-05 10:07] LABS: ABG PCO2 61.9 mmHg (35-45); ABG PH Result 7.43 (7.35-7.45); Arterial Blood Gas Hematocrit 31.6 % (37-47); Blood Gas Allen Test Pos; Blood Gas Operator Identificat MONRO; Blood Gas Sample Site Radial, right; Blood Gas Sample Type Arterial; Carboxyhemoglobin 1.5 %THgb (0.4-20.1); HCO3 ABG 40.6 mmol/L (22-26); HGB O2 Sat 98.1 % (95-100); Ionized Calcium Level - ABG 1.1 mmol/L (1.1-1.4); Methemoglobin 0.4 % (0.4-1.5); Oxygen Device NC; Oxygen Saturation ABG > 99.1; PO2 FiO2 Ratio Arterial Blood 563; Potassium Level - ABG 3.5 mmol/L (3.5-5.0); Total Hemoglobin 10.3 g/dL (12-16)
[2025-01-05 10:45] LABS: Glucose Point of Care 39 mg/dL (70-110)
[2025-01-05 10:48] LABS: Influenza A POSITIVE (Negative); Influenza B NEGATIVE (Negative); Respiratory Syncytial Virus Ce NEGATIVE (Negative); SARS-CoV-2 PCR NEGATIVE (Negative)
[2025-01-05] MEDS: dextrose 10% 250 ML 1000 ML IV (10:50)
[2025-01-05] MEDS: sodium chloride 0.9% 1,000 ML 999 ML IV (11:19)
[2025-01-05 11:23] LABS: Lactic Sepsis W/Reflex 0.8 mmol/L (0.5-2.2)
[2025-01-05 11:25] LABS: Glucose Point of Care 210 mg/dL (70-110)
[2025-01-05 11:25] LABS: Troponin(5th) Baseline 45 ng/L (0-10)
--- NOTE | 2025-01-05 12:03 | CT_ITS ---
WS: [id number] CT ABDOMEN PELVIS TECHNIQUE: Noncontrast CT of the abdomen and pelvis with coronal and sagittal reformatted images. CLINICAL INFORMATION: Abdominal pain COMPARISON: CT 06/27/2022 DLP: 731.[address] scans at [facility] use at least one of these dose optimization techniques: automated exposure control; mA and/or kV adjustment per patient size (includes targeted exams where dose is matched to clinical indication); or iterative reconstruction. FINDINGS: Cardiomegaly. Prior cholecystectomy. Aortic endograft repair with bilateral iliac stents. Proximal renal artery stents. Prior hysterectomy. Excluded aneurysm sac measures 4.7 by by 4.8 x 6.2 cm AP by transverse by craniocaudal. This appears stable compared to previous. Normal noncontrast liver. Small amount of perihepatic ascites. Fatty atrophy of the pancreas. Splenic artery calcification. Small esophageal hiatal hernia. Adrenal glands are normal. No hydronephrosis in either kidney. Sigmoid diverticulosis. Tiny fat-containing inguinal hernias. CT/CT abdomen pelvis wo con [id number] IMPRESSION: 1. Cardiomegaly. 2. Aortic endograft repair with biiliac extension is stable in appearance. 3. Prior cholecystectomy and hysterectomy. 4. Sigmoid diverticulosis. 5. Small trace of perihepatic fluid. 6. No other remarkable findings.
[2025-01-05 12:12] LABS: Glucose Point of Care 108 mg/dL (70-110)
--- NOTE | 2025-01-05 12:26 | ECG_ITS ---
[facility] Test Date: 2025-01-05 Pat Name: Paloma Slater Department: Room: ED Gender: Female Pm Head Cook: : [id number] Requested By: Duran Yeager Order Number: [id number] Latisha MD: Jazmín Aguiar M.D. Measurements Intervals [place] Rate: 70 P: 0 NE: 0 QRS: 216 QRSD: 177 T: 78 QT: 522 QTc: 563 Interpretive Statements ATRIAL FIBRILLATION RIGHT AXIS DEVIATION [QRS AXIS > 100] INTRAVENTRICULAR CONDUCTION DELAY [130+ ms QRS DURATION] Compared to ECG 01/05/2025 07:37:59 No significant changes Electronically Signed On 01-05-2025 18:05:19 LOCKER ROOM ATTENDANT by Jazmín Aguiar M.D. [email or web address]
[2025-01-05 13:10] LABS: Troponin 5 2HR 40.83 ng/L (0-10)
[2025-01-05 13:11] LABS: Troponin 5 2HR Delta -4.17 ABS# (0-10)
--- NOTE | 2025-01-05 13:55 | PC.NURSE ---
Pt removed bipap, this nurse to bedside. Pt refused bipap, pt educated on the need for bipap. MD notified of pt refusal of bipap.
--- NOTE | 2025-01-05 14:23 | PC.NURSE ---
Dr. Rose notified pt is refusing blackman at this time.
--- NOTE | 2025-01-05 15:45 | PC.NURSE ---
Contacted Dr. Rose via phone to inform of blood pressure, MD gave order for hydrocortisone 100 mg IVP. stated he was okay to with pt MAP of 60 or above.
--- NOTE | 2025-01-05 15:49 | PM.HP ---
Providers/Chief Complaint Admitting Physician: Jovanni Rose Primary Care Provider: Kofi Lopez MD Chief Complaint: SOB History of Present Illness Pleasant 84-year-old lady with history of COPD, normally on 3 L of oxygen, congestive heart failure, asthma, atrial fibrillation, MYRA, CKD, diabetes, peripheral neuropathy, anemia, CVA, AAA, renal artery stenosis, HTN, HLD, current smoker although has been cutting down, presents due to worsening dyspnea, productive cough over the past 3 to 4 days. Status that sputum has been thick and brown in appearance. She has had general malaise, fatigue, she had a couple episodes of vomiting yesterday. In addition to oxygen she has a BiPAP machine at home which she has been using as needed although overall does not tolerate it very well due to claustrophobia. In ER she is found with worsened hypoxia, requiring 5 L nasal cannula oxygen compared to her usual baseline 3L. ABG in ER, 7.43/61 point 9/203/40 0.6, on 4 L nasal cannula. With worsening dyspnea, hypercapnia was transiently started on BiPAP. Additionally in ER noted with hypotension, blood pressure as low as 88/46, 85/60, with noted worsened acute on chronic anemia, hemoglobin down to 9.9. She is on Eliquis at home. Recently also had a visit to ER after fall and left lower extremity hematoma. Review of Systems Const: Denies: fever(s), chills, body aches or malaise ENMT: Denies: throat pain Card: Reports: edema (Recently with BL LE edema with weeping, but improved, weeping resolved); Denies: chest pain, pre-syncope or dyspnea on exertion Resp: Reports: dyspnea, productive cough and change in phlegm color; Denies: hemoptysis GI: Reports: vomiting (No further vomiting today.); Denies: abdominal pain, nausea, diarrhea, constipation, hematochezia or melena : Denies: flank pain, urinary frequency or hematuria Musc: Denies: back pain, joint swelling or joint redness Skin/Breast: Denies: new lesions Neuro: Denies: headache(s) or confusion Medications/Allergies Home Medications ?Medication ?Instructions ?Recorded ?Confirmed ?Last Taken ?Type flash glucose scanning reader #1 ea 03/04/22 01/05/25 Unknown Rx (FreeStyle [place] 14 Day [place]) flash glucose sensor (FreeStyle #2 ea 03/04/22 01/05/25 Unknown Rx Odell 14 Day Sensor kit) blood-glucose meter #1 ea 03/06/22 01/05/25 Unknown Rx pen needle, diabetic 32 gauge x #100 ea 04/12/22 01/05/25 Unknown Rx 5/32 (TechLITE Pen Needle) overnight oximetry #1 ea 12/17/22 01/05/25 Unknown Rx breast prosthesis bilateral and #1 ea 02/05/23 01/05/25 Unknown Rx bras x4 diphenhydramine HCl 25 mg capsule 25 mg PO BEDTIME PRN Allergy 02/19/23 01/05/25 Unknown History (Benadryl) Symptoms home oxygen 2l/m continuous #1 ea 06/04/23 01/05/25 Unknown Rx CPAP set to 6-16 with supplies #1 ea 09/15/23 01/05/25 Unknown Rx RSV - pre f3 #1 ea 10/09/23 01/05/25 Unknown Rx blood sugar diagnostic (Blood #120 ea 10/31/23 01/05/25 Unknown Rx Glucose Test strips) atorvastatin 80 mg tablet 80 mg PO BEDTIME #90 tabs 01/05/24 01/05/25 01/04/25 Rx amiodarone 200 mg tablet 200 mg PO QAM 02/06/24 01/05/25 01/04/25 History buspirone 5 mg tablet 5 mg PO BEDTIME PRN Anxiety 02/06/24 01/05/25 Unknown History multivitamin 1 tab PO DAILY 02/06/24 01/05/25 01/04/25 History Inogen portable oxygen device and #1 ea 02/19/24 01/05/25 Unknown Rx supplies budesonide 160 mcg-glycopyr 9 2 inh inhalation BID #10.7 grams 02/19/24 01/05/25 01/04/25 Rx mcg-formot 4.8 mcg/actuation HFA inhaler (Breztri Aerosphere) carvedilol 6.25 mg tablet 6.25 mg PO BID 07/14/24 01/05/25 01/04/25 History glipizide 5 mg tablet 5 mg PO DAILY 07/14/24 01/05/25 01/04/25 History loratadine 10 mg tablet 10 mg PO DAILY 07/14/24 01/05/25 01/04/25 History famotidine 20 mg tablet 20 mg PO BID #180 tabs 09/23/24 01/05/25 01/04/25 Rx apixaban 5 mg tablet (Eliquis) 5 mg PO Q12H #180 tabs 10/13/24 01/05/25 01/04/25 Rx lisinopril 2.5 mg tablet 2.5 mg PO DAILY #90 tabs 10/20/24 01/05/25 01/04/25 Rx montelukast 10 mg tablet 10 mg PO DAILY #90 tabs 10/20/24 01/05/25 01/04/25 Rx mupirocin 2 % topical ointment 1 applic topical BID PRN Skin 11/04/24 01/05/25 Unknown History Irritation torsemide 20 mg tablet 20 - 40 mg (1 - 2 x 20 mg) PO QAM 12/01/24 01/05/25 01/04/25 Rx #120 tabs metolazone 5 mg tablet 5 mg PO DAILY #30 tabs 12/14/24 01/05/25 01/04/25 Rx potassium chloride 10 mEq 10 meq PO DAILY #90 tabs 12/16/24 01/05/25 01/04/25 Rx tablet,extended release linezolid 600 mg tablet (Zyvox) 600 mg PO BID 6 days #12 tabs 12/25/24 01/05/25 01/04/25 Rx oxycodone 15 mg tablet 15 mg PO Q6H PRN pain 30 days #120 12/31/24 01/05/25 01/04/25 Rx tabs insulin glargine 100 unit/mL (3 14 unit SUBCUT QAM 01/05/25 01/05/25 01/04/25 History mL) subcutaneous pen (Lantus Solostar U-100 Insulin) Allergies Allergy/AdvReac Type Severity Reaction Status Date / Time adhesive tape Allergy Unknown Unknown Verified 12/26/24 14:55 bacitracin (From Neosporin Allergy Unknown Unknown Verified 12/26/24 14:55 ([id number])) codeine Allergy Unknown Unknown Verified 12/26/24 14:55 doxycycline Allergy Unknown Unknown Verified 12/26/24 14:55 neomycin (From Neosporin Allergy Unknown Unknown Verified 12/26/24 14:55 ([id number])) penicillamine Allergy Unknown Unknown Verified 12/26/24 14:55 Penicillins Allergy Unknown Unknown Verified 12/26/24 14:55 polymyxin B (From Neosporin Allergy Unknown Unknown Verified 12/26/24 14:55 ([id number])) prochlorperazine (From Allergy Unknown Unknown Verified 12/26/24 14:55 Compazine) Sulfa (Sulfonamide Allergy Unknown Unknown Verified 12/26/24 14:55 Antibiotics) diltiazem Allergy ALGY-Difficulty Verified 12/26/24 14:55 Breathing PFSH Acute PFSH: Medical History Heart failure with mildly reduced ejection fraction Nicotine dependence, cigarettes, with unspecified nicotine-induced disorders Bilateral breast cancer Asthma Anxiety Acute respiratory failure with hypoxia and hypercarbia CHF (congestive heart failure) COPD (chronic obstructive pulmonary disease) Respiratory failure Paroxysmal atrial fibrillation MYRA (generalized anxiety disorder) Hypersomnia Chronic anticoagulation Atrial fib/flutter, transient Osteoporosis History of COVID-19 Jul 2021 Pneumonia Chronic kidney disease Diabetic peripheral neuropathy Anemia Carotid artery disease B12 deficiency Chronic pain CVA (cerebral vascular accident) History of nonmelanoma skin cancer Atopic dermatitis Seasonal allergies Renal artery stenosis Descending thoracic aortic aneurysm AAA (abdominal aortic aneurysm) Status post stent graft repair Obesity HTN (hypertension) Dyslipidemia Diabetes 1.5, managed as type 2 Surgical History History of total mastectomy of left breast 04/[address] Vo at [place], [place] History of stent insertion of renal artery History of aortic aneurysm repair S/P mastectomy (08/2009) Right modified radical mastectomy S/P cholecystectomy S/P tonsillectomy S/P hysterectomy Family History Other Stroke Social History Smoking and tobacco/nicotine status: current every day tobacco/nicotine user cigarettes Packs smoked per day: 0.5 Years cigarettes smoked: 66 Alcohol intake: never Substance/Drug Use: never Vitals/I&O/Wt Last Vital Signs Temp 98.5 F 01/05/25 07:35 Pulse 82 01/05/25 14:34 Resp 20 H 01/05/25 12:15 BP 90/43 01/05/25 14:34 Pulse Ox 99 01/05/25 14:34 O2 Del Method Nasal Cannula 01/05/25 14:34 O2 Flow Rate 5 01/05/25 14:34 FiO2 30 01/05/25 13:47 01/05/25 01/05/25 01/05/25 06:59 14:59 22:59 Intake Total 1250 / 1250 Balance 1250 / 1250 Weight last 48 hrs Weight 78.925 kg Physical Exam Narrative: Accompanied by family. Const: COMMON NORMALS: patient oriented x3 and alert GENERAL APPEARANCE: cooperative ORIENTATION/CONSCIOUSNESS: Yes awake HENMT: COMMON NORMALS: oropharynx normal Neck/C-Spine: COMMON NORMALS: no JVD Resp: COMMON NORMALS: normal respiratory effort AUSCULTATION: diminished lung sounds Cardio: COMMON NORMALS: no JVD, regular rhythm, S1 normal heart sound present, S2 normal heart sound present and No murmurs present (Cardio) RHYTHM: regular rhythm HEART SOUNDS: S1 normal heart sound present and S2 normal heart sound present GI: COMMON NORMALS: Normal to inspection, nondistended, normoactive bowel sounds present, Soft to palpation and non-tender PALPATION: Yes Soft to palpation Extremity: COMMON NORMALS: no joint enlargement and no pedal edema GENERAL: Yes edema (1-2+, but with wrinkling. No weeping.) Neuro: COMMON NORMALS: patient oriented x3 and moves all extremities SENSORIUM/ORIENTATION: Yes alert Skin: COMMON NORMALS: no rashes or lesions noted GENERAL SKIN EXAM: no rashes or lesions noted Data 01/05/25 08:07 01/05/25 08:07 Micro: Microbiology 01/05/25 10:57 Blood Culture - Preliminary Blood SPECIMEN COLLECTED 01/05/25 10:55 Blood Culture - Preliminary Blood SPECIMEN COLLECTED A&P Assessment and plan (1) Acute and chronic respiratory failure ([id number]): With dyspnea, hypoxia, tachypnea, worse hypoxia, tracheal, with productive cough, diminished air entry, productive of thick brown purulent appearing sputum, with severe influenza A infection, with severe COPD exacerbation. Reviewed vitals, CBC, ABG, CMP, lactic acid, troponin, respiratory swab for coronavirus, influenza, RSV, chest x-ray, CT abdomen pelvis, EKG on my prescription with atrial fibrillation, pending official read. Reviewed ER provider note, discussed with ER provider. Discussed with nursing, discussed with respite therapist. Transiently on BiPAP in ER, her, could not tolerate BiPAP due to claustrophobia, removed the mask. Replace nasal cannula, so far maintaining oxygen saturation. Discussed with RT, target oxygen saturation 88-92%. Avoid hyperoxia. Will treat influenza as per discussion with her, given Tamiflu, additionally treat severe exacerbation of COPD. Further reassess acute on chronic anemia. Monitor blood pressure, hemodynamic support if needed. Initial admission to intensive care unit. (2) Acute on chronic anemia: Reviewed hemoglobin, lower than prior currently at 9.9. Not have any obvious outward bleeding, recently was assessed due to left lower leg hematoma after a fall and injury to her [place]. Overall with improved swelling. Given anticoagulation, recent fall, additionally assessed in ER with CT abdomen pelvis for any retroperitoneal or other focus of bleeding. Reviewed CT abdomen pelvis, without noted other location suggestive of sanguinous accumulation. For now we will switch away from Eliquis to therapeutic Lovenox but starting from tomorrow to allow for further hemoglobin reassessment. Will request Hemoccult. Will add PPI IV twice daily. Monitor for risk of bleeding. Repeat blood counts further tonight and tomorrow. (3) Influenza: Severe sinus infection with acute on chronic respiratory failure. Will treat with Tamiflu. Treat severe exacerbation of COPD. (4) Nicotine dependence, cigarettes, with unspecified nicotine-induced disorders: Discussed mocha cessation with her for 3 and half minutes. She has not been ready to quit yet but has been cutting down on the amount. Discussed with her nicotine replacement, however, she declines at current time. (5) Acute kidney injury superimposed on CKD: Creatinine up to 2.5. Baseline creatinine appears to be around 1.6, although did have creatinine 2.1 on 12/26. Possibly reaching new baseline. Additionally with CHF exacerbation, has been diuresing with improvement in lower extremity edema. Received a fluid challenge bolus in ER. Will reassess renal function. Hold off additional IV fluids for now. (6) Hypotension: Hypotension presentation, she states did not take her antihypertensives today, did take them yesterday. Possibly with supratherapeutic effect in setting of SONNY on CKD. Hold lisinopril, carvedilol at current time. Reassess blood pressures. Plan Hypoglycemia: Blood sugar found to be 39 presentation. She was given 250 mL of D10. She is awake and alert, blood glucose had improved, although again with decreased down to 39. Will hold insulin Lantus for now. She is receiving additional sugary snacks. Recheck blood glucose. She is additionally being started on corticosteroid. Chronic congestive heart failure, recently with lower extremity [place] pain, however, this has been improving, and weeping is resolved, there is wrinkling of lower extremities. Currently does not appear in decompensated CHF. Does have some residual edema. Will continue home torsemide, metolazone. Monitor weights. Reassess volume status. With risk of electro abnormality, reassess chemistry. Goals of care discussion: In case of cardiopulmonary as she would want attempted resuscitation, although would not want persistent attempt in case there was no success. Would not want continued life support in case she was not coming back in good neurological condition. COPD, normally on 3 L of oxygen, Congestive heart failure, Asthma, Atrial fibrillation, MYRA, CKD, Diabetes, Peripheral neuropathy, Anemia, CVA, AAA, Renal artery stenosis, HTN, HLD PDMP PDMP Reviewed: Not Reviewed Attestations Medical Necessity Statement*: Admission over 2 midnights anticipated for assessment management of acute on chronic respiratory failure, serious worsening COPD, severe influenza infection, hypoglycemia, acute on chronic anemia, SONNY on CKD in a lady with underlying CKD, CHF, additional chronic medical conditions as above. Diagnoses Acute and chronic respiratory failure ([id number]) J96.20 Acute on chronic anemia D64.9 Influenza J11.1 Nicotine dependence, cigarettes, with unspecified nicotine-induced disorders F17.219 Acute kidney injury superimposed on CKD N17.9; N18.9 Hypotension I95.9
[2025-01-05] MEDS: hydrocortisone 100 mg/2 mL SDV IVP (16:02)
[2025-01-05 16:18] LABS: Glucose Point of Care 43 mg/dL (70-110)
[2025-01-05 16:20] LABS: Glucose Point of Care 39 mg/dL (70-110)
--- NOTE | 2025-01-05 16:20 | PC.NURSE ---
Dr. Rose contacted via phone to notify of pt blood sugar of 39. MD said to have pt eat and drink. Pt given apple juice and pudding.
--- NOTE | 2025-01-05 16:50 | ECG_ITS ---
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 Measurements Intervals Kermit Rate: 79 P: 0 ND: 0 QRS: 185 QRSD: 170 T: 44 QT: 489 QTc: 562 Interpretive Statements ATRIAL FIBRILLATION RIGHT AXIS DEVIATION [QRS AXIS > 100] INTRAVENTRICULAR CONDUCTION DELAY [130+ ms QRS DURATION] Compared to ECG 01/05/2025 07:37:59 No significant changes Electronically Signed On 01-05-2025 18:05:15 [employer] by Jazmín Aguiar M.D. [email or web address]
[2025-01-05 17:02] LABS: Troponin 5 6HR 43.35 ng/L (0-10); Troponin 5 6HR Delta -1.65 ng/L (0-12)
[2025-01-05 17:10] LABS: Bilirubin Urine Negative (Negative); Blood Urine Negative (Negative); Glucose Urine UA Negative (Normal); Ketones Urine Negative (Negative); Leukocyte Esterase Urine 2+ (Negative); Nitrate Urine Negative (Negative); Protein Urine Trace (Negative); Specific Gravity, Urine 1.017 (1.005-1.030); Urine Appearance Clear (CLEAR); Urine Color Yellow (Yellow); pH Urine 5.5 (5-7)
[2025-01-05 17:17] LABS: Add Urine Microscopic? YES; Bacteria Urine None Seen /hpf; Hyaline Casts Urine 21.48 /lpf; RBC Urine 0-2 /hpf (0-2); Squamous Epithelial Cell Urine 0-5 /hpf (0-5)
[2025-01-05 17:20] LABS: Glucose Point of Care 65 mg/dL (70-110)
[2025-01-05 17:27] LABS: UA Slide Review UA Slide Review Perf
[2025-01-05 17:29] LABS: Add Urine Culture? No
[2025-01-05 18:07] LABS: Glucose Point of Care 78 mg/dL (70-110)
[2025-01-05 19:03] LABS: Glucose Point of Care 114 mg/dL (70-110)
[2025-01-05] MEDS: sodium chloride 0.9% 1,000 ML 100 ML IV (19:03)
[2025-01-05] MEDS: oseltamivir phosphate 30 mg Capsule PO (19:05)
[2025-01-05] MEDS: famotidine 20 mg Tablet PO (19:05)
[2025-01-05 20:05] LABS: Glucose Point of Care 108 mg/dL (70-110)
[2025-01-05] MEDS: budesonide 0.5 mg/2 mL Neb INHALATION (22:57)
[2025-01-05 23:09] LABS: Glucose Point of Care 92 mg/dL (70-110)
[2025-01-06] VITALS (116 sets, daily range): BP systolic 82–141; BP diastolic 41–94; PULSE 63–124; RESP 14–34; TEMP 36.2–36.9; O2SAT 80–97
[2025-01-06] MEDS: hydrocortisone 100 mg/2 mL SDV IVP ×3 (00:17→09:36)
[2025-01-06] MEDS: atorvastatin 40 mg Tablet 80 MG PO ×2 (00:17→19:53)
--- NOTE | 2025-01-06 00:50 | PC.NURSE ---
PT VS PRE PROCEDURE 139/87 100% HR 82 RR 20 DURING PROCEDURE 100/62 96% HR 82 RR 31 POST PROCEDURE 137/84 94 % HR 81 RR 30
[2025-01-06 01:47] LABS: Glucose Point of Care 110 mg/dL (70-110)
[2025-01-06] MEDS: sodium chloride 0.9% 1,000 ML 100 ML IV (05:26)
[2025-01-06] MEDS: amiodarone 200 mg Tablet PO (05:36)
[2025-01-06 05:37] LABS: Basophils % 0.1 %; Hematocrit 30.7 % (36-47); Lymphocytes # 0.4 10^3/uL (0.8-4.8); Lymphocytes % 3.9 %; Mean Corpuscular HGB Conc 31.9 g/dL (30-55); Mean Corpuscular Hemoglobin 29.2 pg (27-33); Mean Corpuscular Volume 91.4 fl (85-98); Mean Platelet Volume 10.2 fL (7.4-10.4); Monocytes # 0.6 10^3/uL (0.2-0.9); Monocytes % 6.5 %; Neutrophils # 8.53 10^3/uL (1.8-7.7); Neutrophils % 89.1 %; Nucleated Red Blood Cells % 0 %; Platelet Count 201 10^3/cmm (157-399); Red Blood Count 3.36 10^6/uL (3.85-5.65); Red Cell Distribution Width 15.4 % (12.1-15.1); White Blood Count 9.57 10^3/uL (3.29-11.43)
[2025-01-06 06:01] LABS: Alanine Aminotransferase 11 U/L (0-33); Albumin Level 2.9 g/dL (3.5-5.2); Alkaline Phosphatase 177 U/L (35-105); Aspartate Amino Transferase 22 U/L (0-32); Blood Urea Nitrogen 56 mg/dL (8-23); Calcium 7.7 mg/dL (8.5-10.5); Carbon Dioxide 34 mmol/L (22-29); Chloride 90 mmol/L (98-107); Creatinine Clr Calc Pharmacy 20.5547; Globulin 2.9 g/dL (1.3-4.6); Glucose 91 mg/dL (65-115); Osmolality Calculated 297 mOsm/kg (285-295); Sodium 136 mmol/L (136-145); Total Bilirubin 0.7 mg/dL (0.15-1.2); Total Protein 5.8 g/dL (6.6-8.7)
[2025-01-06] MEDS: norepinephrine 4 MG/250 ML BAG 7.5 MG IV (06:01)
[2025-01-06] MEDS: ipratropium-albuterol 3 mL Neb INHALATION ×4 (08:29→19:50)
[2025-01-06] MEDS: budesonide 0.5 mg/2 mL Neb INHALATION ×2 (08:29→20:02)
[2025-01-06 09:10] LABS: Glucose Point of Care 130 mg/dL (70-110)
[2025-01-06] MEDS: albumin 25 G/100 ML BAG 60 G IV ×2 (09:36→11:41)
[2025-01-06] MEDS: oseltamivir phosphate 30 mg Capsule PO (09:36)
[2025-01-06] MEDS: enoxaparin 80 mg/0.8 mL Syringe SUBCUT (09:36)
[2025-01-06] MEDS: famotidine 20 mg Tablet PO ×2 (09:36→18:09)
[2025-01-06] MEDS: montelukast sodium 10 mg Tablet PO (09:36)
[2025-01-06] MEDS: potassium chloride ER 20 mEq Tablet PO (10:26)
[2025-01-06] MEDS: oxyCODONE 5 mg IR Tab/Cap 15 MG PO (10:26)
--- NOTE | 2025-01-06 11:21 | P.PN_ITS ---
Subjective 2 Subjective: She came off BiPAP this morning, but later became dyspneic and had to resume BiPAP again. Currently she has been slightly better. Cough with improvement. Vitals/I&O/Wt Last Vital Signs Temp 97.2 F L 01/06/25 08:00 Pulse 88 01/06/25 10:45 Resp 21 H 01/06/25 10:45 BP 114/69 01/06/25 10:45 Pulse Ox 88 L 01/06/25 10:45 O2 Del Method BiPAP 01/06/25 08:30 O2 Flow Rate 4 01/05/25 22:58 FiO2 40 01/06/25 08:30 01/05/25 01/06/25 01/06/25 22:59 06:59 14:59 Intake Total 1250 / 1250 1000 / 2250 268.5 / 268.5 Output Total 100 / 100 Balance 1250 / 1250 1000 / 2250 168.5 / 168.5 Weight last 48 hrs Weight 78.925 kg Weight 79 kg Weight 78.925 kg Physical Exam 2 Narrative: BiPAP. Const: COMMON NORMALS: patient oriented x3 and alert GENERAL APPEARANCE: c ooperative ORIENTATION/CONSCIOUSNESS: Yes awake HENMT: COMMON NORMALS: oropharynx normal Neck/C-Spine: COMMON NORMALS: no JVD Resp: COMMON NORMALS: normal respiratory effort AUSCULTATION: wheezes and diminished lung sounds Cardio: COMMON NORMALS: no JVD, regular rhythm, S1 normal heart sound present, S2 normal heart sound present and No murmurs present (Cardio) RHYTHM: regular rhythm HEART SOUNDS: S1 normal heart sound present and S2 normal heart sound present GI: COMMON NORMALS: Normal to inspection, nondistended, normoactive bowel sounds present, Soft to palpation and non-tender PALPATION: Yes Soft to palpation Extremity: COMMON NORMALS: no joint enlargement and no pedal edema GENERAL: Yes edema (1-2+, but with wrinkling. No weeping.) OTHER: Without notable asymmetry between extremities. I did not see bruising or any signs of worsening hematoma. Neuro: COMMON NORMALS: patient oriented x3 and moves all extremities S ENSORIUM/ORIENTATION: Yes alert Skin: COMMON NORMALS: no rashes or lesions noted GENERAL SKIN EXAM: no rashes or lesions noted Urinary Catheter Management: Matias: Cath Placed During This Visit: yes Urinary Catheter Date of Insertion: 01/06/25 Urinary Catheter Time of Insertion: 07:15 Data 01/06/25 05:05 01/06/25 05:05 Micro: Microbiology 01/05/25 10:57 Blood Culture - Preliminary Blood NEGATIVE TO DATE 01/05/25 10:55 Blood Culture - Preliminary Blood NEGATIVE TO DATE A&P Assessment and plan (1) Acute and chronic respiratory failure ([id number]): Becoming dyspneic and with desaturation this morning, to be restarted on BiPAP. FiO2 increased likely due to desaturation while on BiPAP below 88%. Current saturations improved. She is feeling somewhat better. Discussed with respite therapist, and prior to be further titrated. Target O2 sat 88-92%. Discussed with her, continue treatment of severe exacerbation of COPD, flu A. Reviewed vitals, CBC, CMP, troponin. Continue IV steroids for COPD exacerbation, continue breathing treatments. Continue Tamiflu. With dyspnea, hypoxia, tachypnea, worse hypoxia, tracheal, with productive cough, diminished air entry, productive of thick brown purulent appearing sputum, with severe influenza A infection, with severe COPD exacerbation. Transiently on BiPAP in ER, her, could not tolerate BiPAP due to claustrophobia, removed the mask. Avoid hyperoxia. Further reassess acute on chronic anemia. Monitor blood pressure, hemodynamic support if needed. Cont admission to intensive care unit. (2) Hypotension: Had transiently weaned off of Levophed, however, again becoming hypotensive. Stop IV fluid. Given a bag of albumin. NICOM, assessed, appears to still be volume depleted, fluid responsive, additional albumin requested. Monitor for risk of fluid overload with underlying CHF. Hypotension presentation, she states did not take her antihypertensives today, did take them yesterday. Possibly with supratherapeutic effect in setting of SONNY on CKD. Hold lisinopril, carvedilol at current time. Reassess blood pressures. (3) Acute on chronic anemia: Reviewed hemoglobin, platelets, hemoglobin last night with some improvement up to 10.3/10.6, today 9.8. Repeat blood counts Reviewed CT abdomen pelvis, without sign of retroperitoneal hematoma. Lower extremity hematoma appears to be resolving/resolved, without asymmetry appreciated. Follow-up Hemoccult. Continue PPI. Stop IV fluid For now we will switch away from Eliquis to therapeutic Lovenox but starting from tomorrow to allow for further hemoglobin reassessment. Will request Hemoccult. Will add PPI IV twice daily. Monitor for risk of bleeding. Repeat blood counts further tonight and tomorrow. (4) Influenza: Severe sinus infection with acute on chronic respiratory failure. Continue to treat with Tamiflu. Treat severe exacerbation of COPD. (5) Nicotine dependence, cigarettes, with unspecified nicotine-induced disorders: Discussed smoking cessation with her for 3 and half minutes. She has not been ready to quit yet but has been cutting down on the amount. Discussed with her nicotine replacement, however, she declines at current time. (6) Acute kidney injury superimposed on CKD: Creatinine, anion gap, bicarb, potassium, with noted, creatinine down to 2.1. BUN 56. Mild hypokalemia, supplementation. Repeat chemistry. Baseline creatinine appears to be around 1.6, although did have creatinine 2.1 on 12/26. Possibly reaching new baseline. Additionally with CHF exacerbation, has been diuresing with improvement in lower extremity edema. Plan Hypoglycemia: Reviewed POC glucose. Hypoglycemia improved. Oral intake as tolerating. Continue to monitor blood glucose. Hypoglycemia protocol. Monitor for hyperglycemia with IV steroid. Change Accu-Cheks to every 4 hours Blood sugar found to be 39 presentation. She was given 250 mL of D10. She is awake and alert, blood glucose had improved, although again with decreased down to 39. Will hold insulin Lantus for now. She is receiving additional sugary snacks. Recheck blood glucose. She is additionally being started on corticosteroid. Chronic congestive heart failure, recently with lower extremity edema, however, this has been improving, and weeping is resolved, there is wrinkling of lower extremities. Currently does not appear in decompensated CHF. Does have some residual edema. Will continue home torsemide, metolazone. Monitor weights. Reassess volume status. With risk of electro abnormality, reassess chemistry. Goals of care discussion: In case of cardiopulmonary as she would want attempted resuscitation, although would not want persistent attempt in case there was no success. Would not want continued life support in case she was not coming back in good neurological condition. COPD, normally on 3 L of oxygen, Congestive heart failure, Asthma, Atrial fibrillation, MYRA, CKD, Diabetes, Peripheral neuropathy, Anemia, CVA, AAA, Renal artery stenosis, HTN, HLD PDMP PDMP Reviewed: Not Reviewed Attestations 2 Medical Necessity Statement*: Continue admission for assessment management of acute on chronic respiratory failure, serious worsening COPD, severe influenza infection, hypoglycemia, acute on chronic anemia, SONNY on CKD in a lady with underlying CKD, CHF, additional chronic medical conditions as above. Diagnoses Acute and chronic respiratory failure ([id number]) J96.20 Hypotension I95.9 Acute on chronic anemia D64.9 Influenza J11.1 Nicotine dependence, cigarettes, with unspecified nicotine-induced disorders F17.219 Acute kidney injury superimposed on CKD N17.9; N18.9
[2025-01-06 11:23] LABS: Glucose Point of Care 180 mg/dL (70-110)
[2025-01-06] MEDS: guaiFENesin 600 mg Tablet 1200 MG PO ×2 (14:02→18:09)
[2025-01-06] MEDS: ALPRAZolam 0.5 mg Tablet PO ×2 (14:03→22:26)
[2025-01-06] MEDS: FUROsemide 10 mg/mL SDV 2mL 20 MG IVP (14:32)
[2025-01-06] MEDS: LORazepam 2 mg/mL INJ 1 mL 0.25 MG IVP (14:32)
[2025-01-06] MEDS: nicotine 14 mg Patch 1 PATCH TRANSDERMA (14:38)
[2025-01-06] MEDS: methylPREDNISolone sod succ 125 mg/2 mL INJ 60 MG IVP ×2 (14:38→19:53)
[2025-01-06] MEDS: benzonatate 100 mg Capsule 200 MG PO ×2 (14:39→19:54)
[2025-01-06] MEDS: acetylcysteine 200 mg/mL MDV 10 mL INHALATION ×2 (15:42→19:50)
--- NOTE | 2025-01-06 16:08 | PC.NURSE ---
1329 -- Notified Dr. Rose that patient is very anxious and states that she is going to leave if we let her get out of bed. Educated patient that she is on medication IV to keep her blood pressure up and her breathing is not good at present time and if she leaves the hospital that she will not do well and could . Notified Dr. Rose that secretions are brown and very thick. Order given for Mucinex and xanax. 1409 -- Notified Dr. Rsoe that patient is struggling to breath and is asking to be ventilated. [id number] -- Dr. Rose to bedside to talk with patient and patients grand daughter. Orders given for a one time dose of ativan, lasix, solumedrol dose changed. 1445 -- Patient resting comfortable on bipap with no distress noted. 1600 -- Dr. Rose to bedside to check on patient. 1607 -- Blood glucose 300. Notified Dr. Rose of blood glucose and that we dont have a sliding scale ordered because her blood glucose was low when she was admitted.
[2025-01-06 16:10] LABS: Glucose Point of Care 300 mg/dL (70-110)
[2025-01-06] MEDS: insulin lispro 100 unit/1 mL SUBCUT ×2 (18:09→20:16)
[2025-01-06 20:37] LABS: Glucose Point of Care 247 mg/dL (70-110)
[2025-01-06] MEDS: BuSPIRONE 10 mg Tablet 5 MG PO (22:26)
[2025-01-06] MEDS: morphine 4 mg/mL SDV 1 mL 2 MG IVP (23:25)
[2025-01-07] VITALS (57 sets, daily range): BP systolic 90–165; BP diastolic 41–84; PULSE 62–100; RESP 13–24; TEMP 36.1–36.5; O2SAT 88–99
[2025-01-07] MEDS: haloperidol inj 5 mg/mL INJ 1 mL IVP (01:30)
[2025-01-07] MEDS: methylPREDNISolone sod succ 125 mg/2 mL INJ 60 MG IVP ×4 (02:31→20:45)
[2025-01-07 07:03] LABS: Basophils % 0.1 %; Eosinophils % 0.3 %; Lymphocytes # 0.4 10^3/uL (0.8-4.8); Lymphocytes % 4.9 %; Mean Corpuscular HGB Conc 31.8 g/dL (30-55); Mean Corpuscular Hemoglobin 29.2 pg (27-33); Mean Corpuscular Volume 91.7 fl (85-98); Mean Platelet Volume 10.2 fL (7.4-10.4); Monocytes # 0.4 10^3/uL (0.2-0.9); Monocytes % 5.2 %; Neutrophils # 6.68 10^3/uL (1.8-7.7); Nucleated Red Blood Cells % 0 %; Platelet Count 181 10^3/cmm (157-399); Red Cell Distribution Width 15.6 % (12.1-15.1); White Blood Count 7.51 10^3/uL (3.29-11.43)
[2025-01-07 07:17] LABS: Alanine Aminotransferase 11 U/L (0-33); Albumin Level 3.3 g/dL (3.5-5.2); Alkaline Phosphatase 170 U/L (35-105); Anion Gap 12.9 (5-19); Aspartate Amino Transferase 23 U/L (0-32); Blood Urea Nitrogen 52 mg/dL (8-23); Calcium 8.1 mg/dL (8.5-10.5); Carbon Dioxide 38 mmol/L (22-29); Chloride 92 mmol/L (98-107); Creatinine Clr Calc Pharmacy 23.6762; Globulin 2.8 g/dL (1.3-4.6); Glucose 210 mg/dL (65-115); Osmolality Calculated 310 mOsm/kg (285-295); Sodium 140 mmol/L (136-145); Total Bilirubin 0.9 mg/dL (0.15-1.2); Total Protein 6.1 g/dL (6.6-8.7)
[2025-01-07 07:22] LABS: Glucose Point of Care 206 mg/dL (70-110)
[2025-01-07 07:35] LABS: Potassium 2.9 mmol/L (3.5-5.1)
[2025-01-07] MEDS: budesonide 0.5 mg/2 mL Neb INHALATION ×2 (07:36→19:57)
[2025-01-07] MEDS: ipratropium-albuterol 3 mL Neb INHALATION ×4 (07:36→19:57)
[2025-01-07] MEDS: acetylcysteine 200 mg/mL MDV 10 mL INHALATION ×4 (07:36→19:57)
[2025-01-07] MEDS: oseltamivir phosphate 30 mg Capsule PO (09:12)
[2025-01-07] MEDS: amiodarone 200 mg Tablet PO (09:12)
[2025-01-07] MEDS: potassium chloride ER 20 mEq Tablet PO (09:14)
[2025-01-07] MEDS: enoxaparin 80 mg/0.8 mL Syringe SUBCUT (09:14)
[2025-01-07] MEDS: TORSEmide 20 mg Tablet PO (09:14)
[2025-01-07] MEDS: montelukast sodium 10 mg Tablet PO (09:15)
[2025-01-07] MEDS: metOLazone 5 MG Tablet PO (09:15)
[2025-01-07] MEDS: lisinopril 5 mg Tablet 2.5 MG PO (09:15)
[2025-01-07] MEDS: insulin lispro 100 unit/1 mL SUBCUT ×4 (09:16→20:44)
[2025-01-07] MEDS: famotidine 20 mg Tablet PO ×2 (09:16→17:04)
[2025-01-07] MEDS: benzonatate 100 mg Capsule 200 MG PO ×2 (09:16→20:45)
--- NOTE | 2025-01-07 10:14 | PC.SOCIAL ---
IMM Update Pg. 2 of IMM updated and copy provided at bedside.
--- NOTE | 2025-01-07 10:26 | PC.NURSE ---
MOrning lantus held per Dr patricia. Patient is refusing breakfast, had recent period of hypoglycemia during this stay.
[2025-01-07 11:13] LABS: Glucose Point of Care 224 mg/dL (70-110)
[2025-01-07] MEDS: nicotine 14 mg Patch 1 PATCH TRANSDERMA (14:58)
[2025-01-07 15:08] LABS: Glucose Point of Care 196 mg/dL (70-110)
[2025-01-07 16:53] LABS: Glucose Point of Care 287 mg/dL (70-110)
[2025-01-07] MEDS: guaiFENesin 600 mg Tablet 1200 MG PO (17:04)
--- NOTE | 2025-01-07 18:02 | PC.NURSE ---
SHift SUmmary: Uneventful shift. Patient rested in bed for most of the day. Later in shift, after family had visited patient had woken up enough to get up to a recliner for about an hour. SHe has become more alert, oriented to person, place, and time, but is still very lethargic. Patient's cough has become stronger and she has been coughing up large amounts of thick brown sputum. total urine output: 1050 mL
--- NOTE | 2025-01-07 18:21 | P.PN_ITS ---
Subjective 2 Subjective: She had a difficult night, but feeling somewhat better this morning, coming off of BiPAP, reports she is feeling little bit better. Breathing is somewhat improved. Overnight was getting very anxious, required one-to-one sitter, restraints and chemical sedation. Vitals/I&O/Wt Last Vital Signs Temp 97.7 F 01/07/25 17:30 Pulse 86 01/07/25 17:30 Resp 24 H 01/07/25 16:00 BP 112/58 01/07/25 17:30 Pulse Ox 95 01/07/25 17:30 O2 Del Method Nasal Cannula 01/07/25 17:30 O2 Flow Rate 5 01/07/25 17:30 FiO2 30 01/07/25 11:09 01/07/25 01/07/25 01/07/25 06:59 14:59 22:59 Output Total 500 / 3000 1050 / 1050 Balance -500 / -1284.00 -1050 / -1050 Weight last 48 hrs Weight 77 kg Weight 78.925 kg Weight 79 kg Physical Exam 2 Narrative: BiPAP. Const: COMMON NORMALS: patient oriented x3 and alert GENERAL APPEARANCE: c ooperative ORIENTATION/CONSCIOUSNESS: Yes awake HENMT: COMMON NORMALS: oropharynx normal Neck/C-Spine: COMMON NORMALS: no JVD Resp: COMMON NORMALS: normal respiratory effort AUSCULTATION: wheezes (improving) and diminished lung sounds Cardio: COMMON NORMALS: no JVD, regular rhythm, S1 normal heart sound present, S2 normal heart sound present and No murmurs present (Cardio) RHYTHM: regular rhythm HEART SOUNDS: S1 normal heart sound present and S2 normal heart sound present GI: COMMON NORMALS: Normal to inspection, nondistended, normoactive bowel sounds present, Soft to palpation and non-tender PALPATION: Yes Soft to palpation Extremity: COMMON NORMALS: no joint enlargement and no pedal edema GENERAL: Yes edema (1-2+, but with wrinkling. No weeping.) OTHER: Without notable asymmetry between extremities. I did not see bruising or any signs of worsening hematoma. Neuro: COMMON NORMALS: patient oriented x3 and moves all extremities S ENSORIUM/ORIENTATION: Yes alert Skin: COMMON NORMALS: no rashes or lesions noted GENERAL SKIN EXAM: no rashes or lesions noted Urinary Catheter Management: Matias: Cath Placed During This Visit: yes Reason for Continuing Indwelling Catheter: Accurate Measurement of Urinary Output in Critically Ill Patients Urinary Catheter Date of Insertion: 01/06/25 Urinary Catheter Time of Insertion: 07:15 Data 01/07/25 06:48 01/07/25 06:48 A&P Assessment and plan (1) Acute and chronic respiratory failure ([id number]-[id number]): She had a difficult night with restlessness, agitation episodes, required one-to-one sitter, restraints, Haldol. Doing better this morning. Weaning down on BiPAP. Responds to voice. Reports feeling slightly better. Still wheezing, diminished air entry on exam, but with improvement. For now continue Solu-Medrol, will decrease slightly to 40 mg every 6 hours however, continues to require IV steroids. Monitor for risk of worsening encephalopathy, hyperglycemia, hypertension. Blood pressure not elevated current time, has weaned off pressor. Blood sugar 91 this morning, with hypoglycemia earlier in hospitalization Lantus dose held this morning. Continue Tamiflu. Continue breathing treatments. BiPAP support while asleep and as needed. Discussed with respiratory therapist. 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 Becoming dyspneic and with desaturation this morning, to be restarted on BiPAP. FiO2 increased likely due to desaturation while on BiPAP below 88%. Current saturations improved. She is feeling somewhat better. Discussed with respite therapist, and prior to be further titrated. Target O2 sat 88-92%. Discussed with her, continue treatment of severe exacerbation of COPD, flu A. Reviewed vitals, CBC, CMP, troponin. Continue IV steroids for COPD exacerbation, continue breathing treatments. Continue Tamiflu. With dyspnea, hypoxia, tachypnea, worse hypoxia, tracheal, with productive cough, diminished air entry, productive of thick brown purulent appearing sputum, with severe influenza A infection, with severe COPD exacerbation. (2) Hypotension: So far resolved. Continue steroids for now with possible adrenal insufficiency. Continue to hold antihypertensives. Monitor blood pressures. Has weaned off pressor. Showing gradual improvement of SONNY. Had transiently weaned off of Levophed, however, again becoming hypotensive. Stop IV fluid. Given a bag of albumin. NUZHAT, assessed, appears to still be volume depleted, fluid responsive, additional albumin requested. Monitor for risk of fluid overload with underlying CHF. Hypotension presentation, she states did not take her antihypertensives today, did take them yesterday. Possibly with supratherapeutic effect in setting of SONNY on CKD. Hold lisinopril, carvedilol at current time. Reassess blood pressures. (3) Acute kidney injury superimposed on CKD: Reviewed creatinine, anion gap, bicarb, potassium, with noted, creatinine down to 1.8. Gradually improving SONNY. Repeat chemistry. Monitor intake output. Mild hypokalemia, supplementation. Repeat chemistry. Baseline creatinine appears to be around 1.6, although did have creatinine 2.1 on 12/26. Possibly reaching new baseline. Additionally with CHF exacerbation, has been diuresing with improvement in lower extremity edema. (4) Acute on chronic anemia: Reviewed hemoglobin, platelets, so far maintaining blood counts. Repeat CBC. Monitor for risk of gastritis, GI bleeding with IV steroid. Continue PPI. Reviewed hemoglobin, platelets, hemoglobin last night with some improvement up to 10.3/10.6, today 9.8. Repeat blood counts Reviewed CT abdomen pelvis, without sign of retroperitoneal hematoma. Lower extremity hematoma appears to be resolving/resolved, without asymmetry appreciated. Follow-up Hemoccult. For now we will switch away from Eliquis to therapeutic Lovenox but starting from tomorrow to allow for further hemoglobin reassessment. PPI IV twice daily. Monitor for risk of bleeding. Repeat blood counts further tonight and tomorrow. (5) Influenza: Had a very miserable night. Feeling slightly better today. Continue Tamiflu.Treat severe exacerbation of COPD. (6) Nicotine dependence, cigarettes, with unspecified nicotine-induced disorders: Agreeable to lower dose nicotine patch, requested. Continue to encourage cessation. Plan Hypoglycemia: Reviewed POC glucose. Blood glucose 91 this morning, held Lantus dose. Hypoglycemia improved. Oral intake as tolerating. Continue to monitor blood glucose. Hypoglycemia protocol. Monitor for hyperglycemia with IV steroid. Change Accu-Cheks to every 4 hours Blood sugar 39 on presentation. She was given 250 mL of D10. She is awake and alert, blood glucose had improved, although again with decreased down to 39. Will hold insulin Lantus for now. She is receiving additional sugary snacks. Recheck blood glucose. She is additionally being started on corticosteroid. Chronic congestive heart failure, recently with lower extremity edema, however, this has been improving, and weeping is resolved, there is wrinkling of lower extremities. Currently does not appear in decompensated CHF. Does have some residual edema. Will continue home torsemide. Monitor weights. Volume status improved. -1.8L. Hold metolazone for now. Reassess volume status. With risk of electro abnormality, reassess chemistry. Goals of care discussion: In case of cardiopulmonary as she would want attempted resuscitation, although would not want persistent attempt in case there was no success. Would not want continued life support in case she was not coming back in good neurological condition. Hypokalemia: Potassium replacement requested. Repeat levels. COPD, normally on 3 L of oxygen, Congestive heart failure, Asthma, Atrial fibrillation, MYRA, CKD, Diabetes, Peripheral neuropathy, Anemia, CVA, AAA, Renal artery stenosis, HTN, HLD PDMP PDMP Reviewed: Not Reviewed Attestations 2 Medical Necessity Statement*: Continue admission for assessment management of acute on chronic respiratory failure, serious worsening COPD, severe influenza infection, hypoglycemia, acute on chronic anemia, SONNY on CKD in a lady with underlying CKD, CHF, additional chronic medical conditions as above. Coding Level of Care Code Critical Care >/= 30 minutes Critical care time (in minutes): 35 The high probability of a clinically significant, sudden or life threatening deterioration, as referenced in this documentation, required my full and direct attention, intervention and personal management. The critical care time shown is in addition to time spent performing any reported separately billable procedures and includes the following: [x] Data and vital sign review and interpretation [x ] Patient assessment, examination and intervention [x] Medication orders and management [x] Patient/Family updates as able [x] Care Coordination and Documentation. Diagnoses Acute and chronic respiratory failure (mbumf-hb-owtgrwy) J96.20 Hypotension I95.9 Acute kidney injury superimposed on CKD N17.9; N18.9 Acute on chronic anemia D64.9 Influenza J11.1 Nicotine dependence, cigarettes, with unspecified nicotine-induced disorders F17.219
[2025-01-07 20:41] LABS: Glucose Point of Care 204 mg/dL (70-110)
[2025-01-07] MEDS: oxyCODONE 5 mg IR Tab/Cap 15 MG PO (20:45)
[2025-01-07] MEDS: atorvastatin 40 mg Tablet 80 MG PO (20:45)
[2025-01-07] MEDS: BuSPIRONE 10 mg Tablet 5 MG PO (21:38)
[2025-01-07] MEDS: ALPRAZolam 0.5 mg Tablet PO (21:38)
[2025-01-08] VITALS (51 sets, daily range): BP systolic 83–144; BP diastolic 51–90; PULSE 64–112; RESP 12–31; TEMP 36.3–37.1; O2SAT 84–98
[2025-01-08] MEDS: oxyCODONE 5 mg IR Tab/Cap 15 MG PO ×2 (01:56→16:10)
[2025-01-08] MEDS: methylPREDNISolone sod succ 125 mg/2 mL INJ 60 MG IVP ×2 (01:56→08:31)
[2025-01-08] MEDS: amiodarone 200 mg Tablet PO (05:27)
[2025-01-08] MEDS: TORSEmide 20 mg Tablet PO (05:27)
[2025-01-08 05:34] LABS: Glucose Point of Care 197 mg/dL (70-110)
[2025-01-08 05:38] LABS: Basophils % 0.1 %; Hematocrit 33.4 % (36-47); Lymphocytes # 0.3 10^3/uL (0.8-4.8); Lymphocytes % 3.6 %; Mean Corpuscular HGB Conc 31.4 g/dL (30-55); Mean Corpuscular Hemoglobin 29.2 pg (27-33); Mean Platelet Volume 10.6 fL (7.4-10.4); Monocytes # 0.4 10^3/uL (0.2-0.9); Neutrophils # 8.11 10^3/uL (1.8-7.7); Nucleated Red Blood Cells % 0 %; Platelet Count 165 10^3/cmm (157-399); Red Blood Count 3.59 10^6/uL (3.85-5.65); Red Cell Distribution Width 15.7 % (12.1-15.1); White Blood Count 8.82 10^3/uL (3.29-11.43)
[2025-01-08 05:59] LABS: Alanine Aminotransferase 12 U/L (0-33); Albumin Level 3.2 g/dL (3.5-5.2); Alkaline Phosphatase 155 U/L (35-105); Anion Gap 11.7 (5-19); Aspartate Amino Transferase 23 U/L (0-32); Blood Urea Nitrogen 54 mg/dL (8-23); Chloride 94 mmol/L (98-107); Creatinine Clr Calc Pharmacy 26.2077; Globulin 2.6 g/dL (1.3-4.6); Glucose 170 mg/dL (65-115); Osmolality Calculated 317 mOsm/kg (285-295); Sodium 144 mmol/L (136-145); Total Bilirubin 1.1 mg/dL (0.15-1.2); Total Protein 5.8 g/dL (6.6-8.7)
[2025-01-08 06:18] LABS: Carbon Dioxide 41 mmol/L (22-29); Potassium 2.7 mmol/L (3.5-5.1)
[2025-01-08] MEDS: insulin glargine 100 units/1 mL 14 UNIT SUBCUT (06:41)
[2025-01-08 07:24] LABS: Glucose Point of Care 208 mg/dL (70-110)
[2025-01-08] MEDS: potassium chloride ER 20 mEq Tablet 40 MEQ PO ×4 (07:32→19:24)
[2025-01-08] MEDS: ALPRAZolam 0.5 mg Tablet PO (07:33)
[2025-01-08] MEDS: acetylcysteine 200 mg/mL MDV 10 mL INHALATION ×3 (07:36→20:27)
[2025-01-08] MEDS: budesonide 0.5 mg/2 mL Neb INHALATION ×2 (07:36→20:27)
[2025-01-08] MEDS: ipratropium-albuterol 3 mL Neb INHALATION ×4 (07:36→20:28)
[2025-01-08] MEDS: montelukast sodium 10 mg Tablet PO (08:31)
[2025-01-08] MEDS: lisinopril 5 mg Tablet 2.5 MG PO (08:31)
[2025-01-08] MEDS: oseltamivir phosphate 30 mg Capsule PO (08:31)
[2025-01-08] MEDS: enoxaparin 80 mg/0.8 mL Syringe SUBCUT (08:31)
[2025-01-08] MEDS: guaiFENesin 600 mg Tablet 1200 MG PO ×2 (08:31→17:35)
[2025-01-08] MEDS: benzonatate 100 mg Capsule 200 MG PO ×2 (08:31→20:54)
[2025-01-08] MEDS: famotidine 20 mg Tablet PO ×2 (08:31→17:35)
[2025-01-08 11:17] LABS: Glucose Point of Care 246 mg/dL (70-110)
--- NOTE | 2025-01-08 12:11 | PM.PN ---
Subjective Subjective: Patient currently somnolent but on 3 l nasal cannula oxygen. She was alert this morning but overnight was noted to be agitated. This morning she was able to tell her nurse that she was in [facility]. She received 0.5 mg of Xanax and has been somnolent since then Vitals/I&O/Wt Last Vital Signs Temp 98.7 F 01/08/25 09:30 Pulse 77 01/08/25 11:13 Resp 16 01/08/25 11:13 BP 91/59 01/08/25 10:00 Pulse Ox 95 01/08/25 11:13 O2 Del Method Nasal Cannula 01/08/25 11:13 O2 Flow Rate 3 01/08/25 11:13 FiO2 30 01/07/25 11:09 01/07/25 01/08/25 01/08/25 22:59 06:59 14:59 Output Total 1050 / 1050 1100 / 2150 Balance -1050 / -1050 -1100 / -2150 Weight last 48 hrs Weight 74.5 kg Weight 77 kg Physical Exam Narrative: General Well-developed somnolent female in no acute cardiopulmonary distress she arouses but falls back to sleep. She tries to answer question regarding where we are and then is drowsy. CV regular with frequent ectopy no loud or harsh murmur Lungs diminished breath sounds in the bases right lower lung hard to evaluate due to positioning. Anterior exam she has prolonged expiratory phase Calves trace ankle edema Neck she is not in the right position but not with obvious JVD Urinary Catheter Management: Matias: Cath Placed During This Visit: yes Reason for Continuing Indwelling Catheter: Accurate Measurement of Urinary Output in Critically Ill Patients Urinary Catheter Date of Insertion: 01/06/25 Urinary Catheter Time of Insertion: 07:15 Data 01/08/25 05:26 01/08/25 05:26 A&P Assessment and plan (1) Acute and chronic respiratory failure (acbbv-hr-zdbjptj): Continue Tamiflu. Continue breathing treatments. BiPAP support while asleep and as needed. Breathing is much improved. Decrease steroids to to Decadron 4 mg daily Decrease alprazolam to 0.25 mg 3 times daily as needed Add azithromycin for bronchitis (2) Hypotension: Has been off Levophed since the Blood pressure medications held (3) Acute kidney injury superimposed on CKD: Urine output good with some contraction alkalosis Zaroxolyn was held and will now be discontinued. Continue torsemide 20 mg daily and potassium will need to be aggressively replaced as she diuresed well and potassium now 2.7 (4) Acute on chronic anemia: Reviewed hemoglobin, platelets, so far maintaining blood counts. Repeat CBC. Monitor for risk of gastritis, GI bleeding with IV steroid. Continue PPI. Reviewed hemoglobin, platelets, hemoglobin last night with some improvement up to 10.3/10.6, today 9.8. Repeat blood counts Reviewed CT abdomen pelvis, without sign of retroperitoneal hematoma. Lower extremity hematoma appears to be resolving/resolved, without asymmetry appreciated. Follow-up Hemoccult. For now we will switch away from Eliquis to therapeutic Lovenox but starting from tomorrow to allow for further hemoglobin reassessment. PPI IV twice daily. Monitor for risk of bleeding. Repeat blood counts further tonight and tomorrow. (5) Influenza: Improved feeling slightly better today. Continue Tamiflu.Treat severe exacerbation of COPD. (6) Nicotine dependence, cigarettes, with unspecified nicotine-induced disorders: Agreeable to lower dose nicotine patch, requested. Continue to encourage cessation. (7) Diabetes 1.5, managed as type 2: Amaryl be started in place of the glipizide that she is on at home due to formulary PDMP PDMP Reviewed: Not Reviewed Attestations Medical Necessity Statement*: Patient remains in the ICU with A-fib rapid ventricle response. This is intermittent her blood pressure has improved. Respiratory status improved. Time Spent in Patient Care: 55 minutes Coding Level of Care Code 44333 Diagnoses Acute and chronic respiratory failure (kzauw-br-gwbhwdo) J96.20 Hypotension I95.9 Acute kidney injury superimposed on CKD N17.9; N18.9 Acute on chronic anemia D64.9 Influenza J11.1 Nicotine dependence, cigarettes, with unspecified nicotine-induced disorders F17.219 Diabetes 1.5, managed as type 2 E13.9 Time Spent (min) 55
[2025-01-08] MEDS: nystatin 100,000 unit/mL UDC 5 mL 100000 UNIT PO ×3 (12:42→20:55)
[2025-01-08] MEDS: dexamethasone 4 mg/mL INJ PO (12:42)
[2025-01-08] MEDS: glimepiride 2 mg Tablet PO (12:42)
[2025-01-08] MEDS: metoprolol succinate ER (24 HR) 25 mg Tablet PO (12:42)
[2025-01-08] MEDS: insulin lispro 100 unit/1 mL SUBCUT ×3 (12:43→21:07)
[2025-01-08 12:51] LABS: Magnesium 1.8 mg/dL (1.7-2.3); Phosphorus 3.1 mg/dL (2.5-4.5)
[2025-01-08] MEDS: AZITHROMYCIN ADD-Vantage 500 MG in 0.9% NaCl ADD-Vantage 250 ML 250 MG IV (12:51)
[2025-01-08] MEDS: nicotine 14 mg Patch 1 PATCH TRANSDERMA (15:16)
[2025-01-08] MEDS: magnesium oxide 400 mg tablet PO (17:35)
[2025-01-08 17:55] LABS: Glucose Point of Care 241 mg/dL (70-110)
[2025-01-08] MEDS: BuSPIRONE 10 mg Tablet 5 MG PO (20:55)
[2025-01-08] MEDS: atorvastatin 40 mg Tablet 80 MG PO (20:55)
[2025-01-08 21:07] LABS: Glucose Point of Care 298 mg/dL (70-110)
[2025-01-09] VITALS (31 sets, daily range): BP systolic 93–128; BP diastolic 53–93; PULSE 87–119; RESP 15–29; TEMP 36.3–37.1; O2SAT 74–97
[2025-01-09] MEDS: insulin glargine 100 units/1 mL 14 UNIT SUBCUT (05:37)
[2025-01-09] MEDS: TORSEmide 20 mg Tablet PO (05:37)
[2025-01-09] MEDS: amiodarone 200 mg Tablet PO (05:37)
[2025-01-09 07:39] LABS: Glucose Point of Care 114 mg/dL (70-110)
[2025-01-09] MEDS: budesonide 0.5 mg/2 mL Neb INHALATION ×2 (07:45→20:31)
[2025-01-09] MEDS: ipratropium-albuterol 3 mL Neb INHALATION ×4 (07:45→20:31)
[2025-01-09] MEDS: acetylcysteine 200 mg/mL MDV 10 mL INHALATION (07:45)
[2025-01-09] MEDS: lisinopril 5 mg Tablet 2.5 MG PO (07:47)
[2025-01-09] MEDS: glimepiride 2 mg Tablet PO (07:47)
[2025-01-09] MEDS: metoprolol succinate ER (24 HR) 25 mg Tablet PO (07:47)
[2025-01-09] MEDS: oseltamivir phosphate 30 mg Capsule PO (07:47)
[2025-01-09] MEDS: benzonatate 100 mg Capsule 200 MG PO (07:47)
[2025-01-09] MEDS: guaiFENesin 600 mg Tablet 1200 MG PO ×2 (07:47→17:46)
[2025-01-09] MEDS: magnesium oxide 400 mg tablet PO ×2 (07:48→17:46)
[2025-01-09] MEDS: nystatin 100,000 unit/mL UDC 5 mL 100000 UNIT PO ×4 (07:48→20:34)
[2025-01-09] MEDS: famotidine 20 mg Tablet PO ×2 (07:48→17:46)
[2025-01-09] MEDS: enoxaparin 80 mg/0.8 mL Syringe SUBCUT (07:48)
[2025-01-09] MEDS: montelukast sodium 10 mg Tablet PO (07:48)
[2025-01-09] MEDS: azithromycin 250 mg Tablet PO (07:48)
[2025-01-09] MEDS: oxyCODONE 5 mg IR Tab/Cap 15 MG PO (07:49)
[2025-01-09 10:55] LABS: Anion Gap 7.6 (5-19); Blood Urea Nitrogen 62 mg/dL (8-23); Calcium 8.5 mg/dL (8.5-10.5); Chloride 98 mmol/L (98-107); Glucose 117 mg/dL (65-115); Potassium 3.6 mmol/L (3.5-5.1); Sodium 143 mmol/L (136-145)
[2025-01-09 11:09] LABS: Osmolality Calculated 319 mOsm/kg (285-295)
[2025-01-09 11:12] LABS: Carbon Dioxide 41 mmol/L (22-29)
--- NOTE | 2025-01-09 11:21 | PM.PN ---
Subjective Subjective: Patient reports her breathing is improved and that she is ready to go home. RN reports that she is oriented but she continually takes off her oxygen patient continually taking oxygen off to scratch her nose Vitals/I&O/Wt Last Vital Signs Temp 97.8 F 01/09/25 07:00 Pulse 100 01/09/25 11:08 Resp 16 01/09/25 11:07 BP 109/75 01/09/25 08:00 Pulse Ox 97 01/09/25 11:07 O2 Del Method Nasal Cannula 01/09/25 11:07 O2 Flow Rate 3 01/09/25 11:07 FiO2 30 01/07/25 11:09 01/08/25 01/09/25 01/09/25 22:59 06:59 14:59 Intake Total 50 / 522 50 / 572 Output Total 1225 / 1225 325 / 1550 Balance -1175 / -703 -275 / -978 Weight last 48 hrs Weight 73.516 kg Weight 74.5 kg Physical Exam Narrative: General Well-developed sleeping female in no acute cardiopulmonary distress she arouses and is able to answer questions. She knows that she is at [facility] and that it is December CV irregularly irregular borderline tachycardic Lungs coarse breath sounds moderate air movement and prolonged expiratory phase Calves trace ankle edema Urinary Catheter Management: Matias: Cath Placed During This Visit: yes Reason for Continuing Indwelling Catheter: Acute Urinary Retention or Obstruction Urinary Catheter Date of Insertion: 01/06/25 Urinary Catheter Time of Insertion: 07:15 Data 01/08/25 05:26 01/09/25 10:18 A&P Assessment and plan (1) Acute and chronic respiratory failure ([id number]-[id number]-[id number]): Continue Tamiflu. Continue breathing treatments. BiPAP support while asleep and as needed. Breathing is much improved. Decrease steroids to to Decadron 4 mg daily Decrease alprazolam to 0.25 mg 3 times daily as needed Add azithromycin for bronchitis (2) Atrial fibrillation with rapid ventricular response: Resume apixaban reduced at renal dose 2.5 mg twice a day Increase metoprolol to 50 mg XL daily first dose today (3) Influenza: Improved feeling slightly better today. Continue Tamiflu 30 mg daily adjusted for renal function. (4) Hypotension: Stop lisinopril increase Toprol to 50 mg daily for heart rate control Hypotension is resolved (5) Acute kidney injury superimposed on CKD: Urine output good with some contraction alkalosis Was on Zaroxolyn during this admission but that has been stopped Decrease torsemide to 10 mg daily continue with potassium Stop lisinopril (6) Acute on chronic anemia: Hematocrit improved to 33 after initial drop (7) Nicotine dependence, cigarettes, with unspecified nicotine-induced disorders: Patient states she stopped smoking at home for a couple of weeks but would like to continue on nicotine patch. She states she will never smoke again (8) Diabetes 1.5, managed as type 2: Amaryl be started in place of the glipizide that she is on at home due to formulary Blood sugars improved Plan Transfer to medical floor and increase activity. Anticipate discharge home in 1 to 2 days patient wants to go home but is not quite ready PDMP PDMP Reviewed: Not Reviewed Attestations Medical Necessity Statement*: Patient is requiring additional time in the hospital for titration of oxygen and resume mobility and ambulation. She is on 3 L of oxygen at home Coding Level of Care Code 65719 Diagnoses Acute and chronic respiratory failure (becny-iq-pjyiyjc) J96.20 Atrial fibrillation with rapid ventricular response I48.91 Influenza J11.1 Hypotension I95.9 Acute kidney injury superimposed on CKD N17.9; N18.9 Acute on chronic anemia D64.9 Nicotine dependence, cigarettes, with unspecified nicotine-induced disorders F17.219 Diabetes 1.5, managed as type 2 E13.9 Time Spent (min) 55
[2025-01-09 12:28] LABS: Glucose Point of Care 116 mg/dL (70-110)
[2025-01-09] MEDS: metoprolol succinate ER (24 HR) 25 mg Tablet 50 MG PO (12:49)
[2025-01-09] MEDS: dexamethasone 4 mg/mL INJ PO (12:49)
[2025-01-09] MEDS: nicotine 14 mg Patch 1 PATCH TRANSDERMA (14:34)
[2025-01-09] MEDS: ALPRAZolam 0.5 mg Tablet 0.25 MG PO ×2 (14:35→20:34)
[2025-01-09 17:42] LABS: Glucose Point of Care 308 mg/dL (70-110)
[2025-01-09] MEDS: insulin lispro 100 unit/1 mL SUBCUT ×2 (17:47→23:09)
--- NOTE | 2025-01-09 18:21 | PC.NURSE ---
Shift Summary: Back and forth from bed to recliner several times during last two shifts. Patient is a 2 person assist to chair and back for weakness. Patient attempts to exit bed/chair on her own despite extensive education on risks of injury. Patient is able to answer all orientation questions correctly. Patient continues to pull at Matias catheter despite education, urine is pink tinged, will clear to a dark yellow after pulls. Matias checked for patency and is functioning properly with no clots. Dr. Cardoso ordered Matias removal, completed per policy. See documented stable vitals. Patient states she wants to go home today. Patient is using flutter valve and IS throughout shift with encouragement from RT and nursing staff. Patient is able to self feed level 5 diet, tolerates well. Orders to transfer to medical surgical floor when room is available, however for patient safety kept in ICU where patient is well visualized. Family at bedside given updates on care and thorough education provided to family on safety and oxygen requirements.
[2025-01-09] MEDS: atorvastatin 40 mg Tablet 80 MG PO (20:34)
[2025-01-09] MEDS: haloperidol inj 5 mg/mL INJ 1 mL 2 MG IVP (23:09)
[2025-01-09 23:10] LABS: Glucose Point of Care 350 mg/dL (70-110)
[2025-01-10] VITALS (40 sets, daily range): BP systolic 102–140; BP diastolic 49–104; PULSE 67–128; RESP 14–30; TEMP 36.2–36.9; O2SAT 85–100
[2025-01-10] MEDS: oxyCODONE 5 mg IR Tab/Cap 15 MG PO (00:07)
--- NOTE | 2025-01-10 01:15 | XRR_ITS ---
PROCEDURE INFORMATION: Exam: XR Chest Exam date and time: 01/10/2025 1:21 AM Age: 84 years old Clinical indication: Cough with congestion TECHNIQUE: Imaging protocol: Radiologic exam of the chest. Views: 1 view. COMPARISON: CR XR chest 1V portable [id number] 01/05/2025 7:45 AM FINDINGS: Tubes, catheters and devices: Partially imaged abdominal aortic endograft. Lungs: Patchy airspace opacities in the bilateral lungs, most prominent in the right upper lung. Pleural spaces: No large pleural effusion. No distinct pneumothorax. Heart/Mediastinum: Cardiomegaly. Vasculature: Calcific disease of the aorta. Bones/joints: Osseous structures are unchanged. XR/XR chest 1V [id number] IMPRESSION: 1. Patchy airspace opacities in the bilateral lungs, most prominent in the right upper lung. This appears new/worsened compared to 01/05/2025. This may represent pulmonary edema/congestion or multifocal infiltrates. 2. Cardiomegaly.
[2025-01-10] MEDS: FUROsemide 10 mg/mL SDV 2mL 20 MG IVP (01:56)
[2025-01-10 05:43] LABS: Basophils % 0.1 %; Lymphocytes # 0.5 10^3/uL (0.8-4.8); Lymphocytes % 4.9 %; Mean Corpuscular HGB Conc 31.4 g/dL (30-55); Mean Corpuscular Hemoglobin 28.6 pg (27-33); Mean Corpuscular Volume 91.4 fl (85-98); Mean Platelet Volume 11.1 fL (7.4-10.4); Monocytes % 9.8 %; Neutrophils # 8.75 10^3/uL (1.8-7.7); Neutrophils % 84.6 %; Nucleated Red Blood Cells % 0 %; Platelet Count 198 10^3/cmm (157-399); Red Blood Count 4.05 10^6/uL (3.85-5.65); Red Cell Distribution Width 16.1 % (12.1-15.1); White Blood Count 10.34 10^3/uL (3.29-11.43)
[2025-01-10 05:55] LABS: Magnesium 2.3 mg/dL (1.7-2.3)
--- NOTE | 2025-01-10 06:12 | ECG_ITS ---
[facility]: [facility] Pat Name: Paloma Slater Department: Room: [id number] Gender: Female Rn Ed: : 1940 Requested By: Cayden Ward Order Number: [id number] Latisha MD: Jazmín Aguiar M.D. Measurements Intervals [place] Rate: 107 P: 0 IA: 0 QRS: 169 QRSD: 165 T: 32 QT: 368 QTc: 491 Interpretive Statements ATRIAL FIBRILLATION WITH RAPID VENTRICULAR RESPONSE RIGHT AXIS DEVIATION [QRS AXIS > 100] INTRAVENTRICULAR CONDUCTION DELAY [130+ ms QRS DURATION] Compared to ECG 01/05/2025 16:50:03 No significant changes Electronically Signed On 01-10-2025 11:21:36 HIDE DYER by Jazmín Aguiar M.D. [email or web address]
[2025-01-10] MEDS: TORSEmide 20 mg Tablet 10 MG PO (06:18)
[2025-01-10] MEDS: amiodarone 200 mg Tablet PO (06:18)
--- NOTE | 2025-01-10 06:24 | PC.NURSE ---
Shift summary: Patient began the shift very restless, pulling at lines, constantly pulling off oxygen, putting her legs over side rails, and attempting to get out of bed. Following multiple attempts at redirection, repositioning, hiding lines, etc contacted Dr. Johnson, new order received for 2 mg IV haldol. Haldol largely ineffective for removal of monitoring and oxygen. With oxygen removal pt quickly would desat into high 70's. Contact[address] Dr[address] Johnson for approval of mittens, patient removed quickly after each time they were placed and were ineffective. Dr. Johnson then approved soft limb restraints to wrists. Later in shift patient's lung sounds became increasingly congested, with crackles and wheezes t/o and audible congestion. Dr. Johnson made aware, CXR done, and 20 mg IV lasix given. At end of shift, while attempting to provide personal care, laid pt flat and pt had 47 beats of v tach. Unable to voice chest pain or symptoms, respirations present during dysrhythmia, and had greyish color change which has since resolved. Contacted Dr. Johnson and made aware, EKG performed, awaiting labs, no new orders at this time.
[2025-01-10 06:38] LABS: Anion Gap 16.4 (5-19); Blood Urea Nitrogen 71 mg/dL (8-23); Calcium 9.4 mg/dL (8.5-10.5); Carbon Dioxide 37 mmol/L (22-29); Chloride 95 mmol/L (98-107); Creatinine Clr Calc Pharmacy 20.8314; Glucose 150 mg/dL (65-115); Osmolality Calculated 324 mOsm/kg (285-295); Potassium 3.4 mmol/L (3.5-5.1); Sodium 145 mmol/L (136-145)
[2025-01-10] MEDS: budesonide 0.5 mg/2 mL Neb INHALATION ×2 (07:43→20:23)
[2025-01-10] MEDS: ipratropium-albuterol 3 mL Neb INHALATION ×4 (07:43→20:23)
[2025-01-10] MEDS: acetylcysteine 200 mg/mL MDV 10 mL INHALATION ×4 (07:43→20:23)
[2025-01-10 07:45] LABS: Glucose Point of Care 129 mg/dL (70-110)
--- NOTE | 2025-01-10 08:58 | XR_ITS ---
WS: [id number] Exam: XR chest 1V portable [id number] Date/Time of Exam: 01/10/2025 9:04 AM Reason For Exam: sob Comparison with the last study performed on the same day at 1:22 a.m. Infiltrates in the upper lung zones have increased slightly since the prior study. The heart is enlarged but unchanged in size. No pneumothorax. No pleural effusion seen. Bony structures are intact. The mediastinum is normal in contour. XR/XR chest 1V portable [id number] IMPRESSION: 1. Patchy airspace infiltrates which have increased in the bilateral upper lung zones since the last study. Cardiac enlargement unchanged.
--- NOTE | 2025-01-10 08:59 | USCV_ITS ---
Paloma Slater Age: 84 Gender: F : 1940 Exam Date: 01/10/2025 13:02 Ordering Phys: Gurmeet Vega MD Technologist: Exam [place] [facility] [place]ication: BP: 133 / 81 HR: 88 Rhythm: Sinus Technical Quality: Adequate MEASUREMENTS (Male / Female) Normal Values 2D ECHO LV Ejection Fraction MOD 4C 30.1 % LV Ejection Fraction MOD 2C 40.5 % LV Ejection Fraction 2C AL 38.5 % RA Systolic Volume 4C AL 68.1 ml RA Systolic Volume 4C MOD 65.5 ml DOPPLER AV Peak Velocity 84.0 cm/s LVOT Peak Velocity 75.0 cm/s MV Peak Velocity 465.0 cm/s TR Peak Velocity 272.0 cm/s TR Peak Gradient 29.6 mmHg TV Peak E Velocity 60.0 cm/s FINDINGS Left Ventricle Moderately increased left ventricular cavity size. Severely decreased left ventricular systolic function. Left ventricular ejection fraction is estimated at 30 %. Global left ventricular hypokinesis. Right Ventricle The right ventricle is normal in size and function. Right Atrium Mildly increased right atrial size. Left Atrium Moderately increased left atrial size. Mitral Valve Moderately thickened mitral valve. Mild mitral annular calcification. No mitral valve stenosis. Moderate-severe mitral valve regurgitation. Aortic Valve Moderate aortic valve calcification. No aortic valve stenosis. Trace aortic valve regurgitation. Tricuspid Valve Mild tricuspid valve regurgitation. Pulmonic Valve Structurally normal pulmonic valve without significant stenosis. There is no pulmonic regurgitation. Pericardium Normal pericardium without effusion. Aorta Normal ascending aorta dimension. IVC Inferior vena cava not visualized. CONCLUSIONS Moderately increased left ventricular cavity size. Severely decreased left ventricular systolic function. Left ventricular ejection fraction is estimated at 30 %. Global left ventricular hypokinesis. Moderately increased left atrial size. Moderately thickened mitral valve. Mild mitral annular calcification. No mitral valve stenosis. Moderate-severe mitral valve regurgitation. Moderate aortic valve calcification. No aortic valve stenosis. Trace aortic valve regurgitation. Mild tricuspid valve regurgitation. There is no pericardial effusion. Zina Rosa MD (Electronically Signed) Final Date: 10 January 2025 20:06 S
--- NOTE | 2025-01-10 09:01 | CTR_ITS ---
PROCEDURE INFORMATION: Exam: CT Chest Without Contrast; Diagnostic Exam date and time: 01/11/2025 5:11 AM Age: 84 years old Clinical indication: Shortness of breath; Prior surgery; Surgery date: 6+ months; Surgery type: Aorta repair; Additional info: SOB TECHNIQUE: Imaging protocol: Diagnostic computed tomography of the chest without contrast. Radiation optimization: All CT scans at this facility use at least one of these dose optimization techniques: automated exposure control; mA and/or kV adjustment per patient size (includes targeted exams where dose is matched to clinical indication); or iterative reconstruction. COMPARISON: [place] [id number] 04/25/2021 9:39 PM RADIATION DOSE METRICS: Total DLP (mGy-cm): 538.6 FINDINGS: Lungs: There are bilateral airspace opacities. Findings are most suspicious for a combination of multifocal pneumonia and atelectasis. An asymmetric pulmonary edema pattern is possible but felt to be somewhat less likely. Pleural spaces: There are small bilateral pleural effusions. Heart: The heart is enlarged. There is no evidence of a significant pericardial effusion. Lymph nodes: Unremarkable. No enlarged lymph nodes. Vasculature: The thoracic aorta is normal in caliber. There is calcified plaque involving the aorta and coronary vessels. There is a partially imaged aortic stent within the upper abdomen. Gallbladder and biliary ducts: There are surgical clips in the gallbladder fossa. Bones/joints: Unremarkable. No acute fracture. Soft tissues: Unremarkable. CT/CT chest wo con [id number] IMPRESSION: 1. Cardiomegaly. 2. Small bilateral pleural effusions. 3. Bilateral airspace disease likely representing a combination of pneumonia and atelectasis. An asymmetric pulmonary edema pattern is possible but felt to be somewhat less likely.
[2025-01-10 10:01] LABS: NT Pro B Type Natriuretic Pept 45744 pg/mL (0-450)
[2025-01-10] MEDS: metoprolol succinate ER (24 HR) 25 mg Tablet 50 MG PO (10:24)
[2025-01-10] MEDS: guaiFENesin 600 mg Tablet 1200 MG PO (10:24)
[2025-01-10] MEDS: famotidine 20 mg Tablet PO (10:24)
[2025-01-10] MEDS: montelukast sodium 10 mg Tablet PO (10:24)
[2025-01-10] MEDS: oseltamivir phosphate 30 mg Capsule PO (10:24)
[2025-01-10] MEDS: magnesium oxide 400 mg tablet PO (10:24)
[2025-01-10] MEDS: meropenem 500 mg SDV IVP ×2 (10:25→21:30)
[2025-01-10] MEDS: insulin glargine 100 units/1 mL 14 UNIT SUBCUT (10:25)
[2025-01-10 10:48] LABS: Glucose Point of Care 133 mg/dL (70-110)
[2025-01-10] MEDS: nystatin 100,000 unit/mL UDC 5 mL 100000 UNIT PO ×2 (11:45→12:23)
[2025-01-10 11:55] LABS: Anion Gap 16.3 (5-19); Blood Urea Nitrogen 72 mg/dL (8-23); Calcium 9.4 mg/dL (8.5-10.5); Carbon Dioxide 39 mmol/L (22-29); Chloride 93 mmol/L (98-107); Creatinine Clr Calc Pharmacy 20.7026; Glucose 135 mg/dL (65-115); Osmolality Calculated 323 mOsm/kg (285-295); Potassium 3.3 mmol/L (3.5-5.1); Sodium 145 mmol/L (136-145)
[2025-01-10] MEDS: dexamethasone 10 mg/mL INJ 4 MG IVP (12:23)
--- NOTE | 2025-01-10 13:09 | PHA.VACGOAL ---
Vancomycin Goal - Goal Vancomycin Goal:: 15-20 mg/L Vancomycin Indication:: Other - Therapy Current therapy:: Meropenem Day of therpy:: Day 1 of [] . Actual body weight (kg): 160 lb - Data Labs: WBC 10.34 10^3/uL (3.29-11.43) 01/10/25 04:57 RBC 4.05 10^6/uL (3.85-5.65) 01/10/25 04:57 Hgb 11.60 g/dL (11.27-16.99) 01/10/25 04:57 Hct 37.0 % (36-47) 01/10/25 04:57 MCV 91.4 fl (85-98) 01/10/25 04:57 MCH 28.6 pg (27-33) 01/10/25 04:57 MCHC 31.4 g/dL (30-55) 01/10/25 04:57 RDW 16.1 % (12.1-15.1) H 01/10/25 04:57 Sodium 145 mmol/L (136-145) 01/10/25 11:20 Potassium 3.3 mmol/L (3.5-5.1) L 01/10/25 11:20 Chloride 93 mmol/L (98-107) L 01/10/25 11:20 Carbon Dioxide 39 mmol/L (22-29) H 01/10/25 11:20 Anion Gap 16.3 (5-19) 01/10/25 11:20 BUN 72 mg/dL (8-23) H 01/10/25 11:20 Creatinine 2.0 mg/dL (0.5-0.9) H 01/10/25 11:20 GFR Calculation Not Reportable 01/10/25 11:20 Last dialysis session:: N/A Treatment plan:: new consult Regimen:: LOADING DOSE OF 2000 MG X 1 PER DOSING PROTOCOL. PATIENT WILL RECEIVE INTERMITTENT DOSING BASED ON VANC LEVELS DUE TO RENAL FUNCTION. Follow up:: VANC LEVEL SCHEDULED 24 HOURS POST LOADING DOSE. 01/11 @5633
[2025-01-10 13:29] LABS: ABG PCO2 55.6 mmHg (35-45); Alveolar-Arterial Oxygen Gradi 40.4 mmHg (5-10); Arterial Blood Gas Hematocrit 38.7 % (37-47); Base Excess ABG 17.8 mmol/L (-2.0-2.0); Blood Gas Operator Identificat GD; Blood Gas Sample Site Brachial, right; Blood Gas Sample Type Arterial; Carboxyhemoglobin 1.1 %THgb (0.4-20.1); HCO3 ABG 43.7 mmol/L (22-26); HGB O2 Sat 87.5 % (95-100); Ionized Calcium Level - ABG 1.2 mmol/L (1.1-1.4); Methemoglobin 0.4 % (0.4-1.5); Oxygen Device BIPAP; Oxygen Saturation ABG 88.8; PO2 ABG 53.9 mmHg (80.0-100.0); PO2 FiO2 Ratio Arterial Blood 89; Potassium Level - ABG 2.9 mmol/L (3.5-5.0); Total Hemoglobin 12.6 g/dL (12-16)
--- NOTE | 2025-01-10 13:40 | PC.OT ---
OT evaluation withheld per nursing request due to patient under respiratory distress. To attempt OT eval on a later date/time.
[2025-01-10 13:48] LABS: C Reactive Protein 23.8 mg/L (0.0-4.9)
[2025-01-10 13:54] LABS: Procalcitonin 0.16 ng/mL (0-0.5)
[2025-01-10] MEDS: metOLazone 5 MG Tablet PO (13:56)
[2025-01-10] MEDS: nicotine 14 mg Patch 1 PATCH TRANSDERMA (13:57)
[2025-01-10] MEDS: vancomycin 2,000 MG/400 ML PIGGYBACK 200 MG IV (13:57)
[2025-01-10] MEDS: FUROsemide 10 mg/mL SDV 4mL 40 MG IVP (13:57)
[2025-01-10] MEDS: lidocaine 1% 5 ML in potassium chloride premix 100 ML 52.5 ML IV (13:57)
[2025-01-10] MEDS: dexmedeTOMIDine 0.9 % NaCL 400 MCG/100 ML PREMIX IV (13:57)
--- NOTE | 2025-01-10 17:23 | PC.SLP ---
The patient was not able to participate in [facility] assessment this date to respiratory/medical status. [facility] will follow up with the patient, when the patient is able.
[2025-01-10 17:49] LABS: Glucose Point of Care 108 mg/dL (70-110)
--- NOTE | 2025-01-10 18:23 | P.PN_ITS ---
Subjective 2 Subjective: Patient was seen this morning, currently heart rates in the 120s A-fib with RVR, in mild respiratory distress nasal flaring intercostal retractions suprasternal retractions crackles and wheezing in all lung jiménez, she is alert to person, not to place, not time she follows commands she is able to smile for me to squeeze my fingers, wiggle her toes she does complain of shortness of breath does have a cough Vitals/I&O/Wt Last Vital Signs Temp 97.2 F L 01/10/25 12:00 Pulse 76 01/10/25 18:17 Resp 20 H 01/10/25 16:00 BP 105/49 01/10/25 16:00 Pulse Ox 100 01/10/25 18:17 O2 Del Method BiPAP 01/10/25 15:32 O2 Flow Rate 4 01/10/25 07:43 FiO2 40 01/10/25 18:17 01/10/25 01/10/25 01/10/25 06:59 14:59 22:59 Intake Total 180 / 1100 505 / 505 Balance 180 / -250 505 / 505 Weight last 48 hrs Weight 72.575 kg Weight 73.516 kg Physical Exam 2 Const: COMMON NORMALS: no acute distress EXAM LIMITATIONS: altered mental status ORIENTATION/CONSCIOUSNESS: Yes awake, Yes oriented to person and Yes confused; not oriented to place and not oriented to time Eye: COMMON NORMALS: Equal, round and reactive pupils present PUPIL: Yes Equal, round and reactive pupils present Lymph: LYMPHATIC: no lymphadenopathy noted Resp: AUSCULTATION: crackles and wheezes OTHER: Mild respiratory distress nasal flaring intercostal retractions suprasternal retractions, tachypnea Cardio: COMMON NORMALS: S1 normal heart sound present and S2 normal heart sound present RATE: tachycardic RHYTHM: abnormal rhythm irregularly irregular HEART SOUNDS: S1 normal heart sound present and S2 normal heart sound present GI: COMMON NORMALS: Normal to inspection, nondistended, normoactive bowel sounds present and non-tender Neuro: SENSORIUM/ORIENTATION: Yes oriented to person, No oriented to place and No oriented to time Urinary Catheter Management: Matias: Cath Placed During This Visit: yes Reason for Continuing Indwelling Catheter: Acute Urinary Retention or Obstruction Urinary Catheter Date of Insertion: 01/10/25 Urinary Catheter Time of Insertion: 15:08 Sepsis: Is patient septic: Yes Focused sepsis exam performed: Yes F ocused sepsis exam: DP PT pulses palpable, cap refill greater than 2 seconds, no mottling Date exam was performed: 01/10/25 Time exam was performed: 09:00 Data 01/10/25 04:57 01/10/25 11:20 Micro: Microbiology 01/05/25 10:57 Blood Culture - Final Blood NO GROWTH AFTER 5 DAYS 01/05/25 10:55 Blood Culture - Final Blood NO GROWTH AFTER 5 DAYS A&P Assessment and plan (1) Acute and chronic respiratory failure ([id number]): -Multifactorial -From influenza -From aspiration pneumonia -From fluid overload, systolic CHF exacerbation, BNP over 45,000 -COPD exacerbation -A-fib with RVR Plan -Monitor the ICU closely -Low threshold for intubation -Currently on BiPAP 60% -Continue Lasix 40 IV twice daily, 1 dose metolazone -Cardiac echo -Continue Tamiflu -Broad-spectrum antibody therapy vancomycin, meropenem -Monitor respiratory status -DuoNeb as needed -Continue Decadron 4 mg IV push every 24 hours (2) Atrial fibrillation with rapid ventricular response: Had episodes of A-fib with RVR today Start amiodarone drip Switch to therapeutic Lovenox as hemoglobin is stable (3) Influenza: Tamiflu 30 mg daily (4) Hypotension: Monitor (5) Acute kidney injury superimposed on CKD: Creatinine 2.0 -Monitor urine output, monitor creatinine (6) Acute on chronic anemia: Hemoglobin stable (7) Nicotine dependence, cigarettes, with unspecified nicotine-induced disorders: (8) Diabetes 1.5, managed as type 2: Low-dose sliding scale Lantus (9) Acute encephalopathy: - Likely secondary aspiration pneumonia (10) Acute CHF: (11) Aspiration pneumonia: (12) Sepsis: - Second aspiration pneumonia, influenza Qualifiers: Acute renal failure type: unspecified Sepsis acute organ dysfunction status: with acute organ dysfunction Sepsis type: sepsis due to unspecified organism Severe sepsis acute organ dysfunction type: acute renal failure S evere sepsis shock status: without septic shock Qualified Code(s): A41.9 - Sepsis, unspecified organism; R65.20 - Severe sepsis without septic shock; N17.9 - Acute kidney failure, unspecified Plan - Plan for today monitor in the ICU closely repeat ABG placed on BiPAP 60% broaden coverage to vancomycin, meropenem Lasix 40 IV twice daily with metolazone monitor urine output monitor creatinine, acute encephalopathy, monitor keep n.p.o. concerns for aspiration meropenem, speech therapy eval PDMP PDMP Reviewed: Not Reviewed Attestations 2 Medical Necessity Statement*: Patient requires hospitalization, inpatient, greater than 2 midnights, for acute hypoxic respiratory failure, sepsis, aspiration pneumonia, influenza, CHF, COPD, acute encephalopathy, acute renal failure Diagnoses Acute and chronic respiratory failure ([id number]) J96.20 Atrial fibrillation with rapid ventricular response I48.91 Influenza J11.1 Hypotension I95.9 Acute kidney injury superimposed on CKD N17.9; N18.9 Acute on chronic anemia D64.9 Nicotine dependence, cigarettes, with unspecified nicotine-induced disorders 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
[2025-01-10] MEDS: enoxaparin 80 mg/0.8 mL Syringe 70 MG SUBCUT (19:04)
[2025-01-10 20:28] LABS: Glucose Point of Care 108 mg/dL (70-110)
[2025-01-11] VITALS (34 sets, daily range): BP systolic 94–128; BP diastolic 47–79; PULSE 63–96; RESP 13–30; TEMP 36.2; O2SAT 92–100
[2025-01-11] MEDS: FUROsemide 10 mg/mL SDV 4mL 40 MG IVP ×3 (01:50→17:37)
[2025-01-11] MEDS: lidocaine 1% 5 ML in potassium chloride premix 100 ML 26.25 ML IV ×2 (01:52→12:40)
[2025-01-11 04:07] LABS: Hematocrit 37.3 % (36-47); Lymphocytes # 0.4 10^3/uL (0.8-4.8); Lymphocytes % 5.4 %; Mean Corpuscular HGB Conc 31.6 g/dL (30-55); Mean Corpuscular Volume 91.6 fl (85-98); Mean Platelet Volume 11.5 fL (7.4-10.4); Monocytes # 0.6 10^3/uL (0.2-0.9); Monocytes % 7.4 %; Neutrophils % 86.7 %; Nucleated Red Blood Cells % 0 %; Platelet Count 163 10^3/cmm (157-399); Red Blood Count 4.07 10^6/uL (3.85-5.65); Red Cell Distribution Width 15.7 % (12.1-15.1); White Blood Count 7.96 10^3/uL (3.29-11.43)
[2025-01-11 04:31] LABS: Procalcitonin 0.35 ng/mL (0-0.5)
[2025-01-11 04:34] LABS: Alanine Aminotransferase 15 U/L (0-33); Alkaline Phosphatase 137 U/L (35-105); Anion Gap 18.1 (5-19); Aspartate Amino Transferase 24 U/L (0-32); Blood Urea Nitrogen 74 mg/dL (8-23); C Reactive Protein 64.9 mg/L (0.0-4.9); Calcium 9.3 mg/dL (8.5-10.5); Carbon Dioxide 39 mmol/L (22-29); Chloride 94 mmol/L (98-107); Creatinine Clr Calc Pharmacy 20.7026; Globulin 3.2 g/dL (1.3-4.6); Glucose 144 mg/dL (65-115); Osmolality Calculated 330 mOsm/kg (285-295); Potassium 3.1 mmol/L (3.5-5.1); Sodium 148 mmol/L (136-145); Total Protein 6.2 g/dL (6.6-8.7)
[2025-01-11 05:04] LABS: NT Pro B Type Natriuretic Pept 68478 pg/mL (0-450)
[2025-01-11] MEDS: insulin glargine 100 units/1 mL 14 UNIT SUBCUT (06:16)
[2025-01-11 06:17] LABS: Glucose Point of Care 152 mg/dL (70-110)
--- NOTE | 2025-01-11 07:00 | XR_ITS ---
WS: [id number] Exam: XR chest 1V portable [id number] Date/Time of Exam: 01/11/2025 8:27 AM Reason For Exam: sob Comparison 01/10/2025. Widespread interstitial airspace infiltrate throughout the RIGHT lung as well as the upper LEFT lung. Very little change since the last exam. The heart is enlarged but unchanged in size. No pleural effusion or pneumothorax. The mediastinum is normal in contour. Numerous monitoring leads superimpose the chest. Unremarkable bony structures. XR/XR chest 1V portable [id number] IMPRESSION: 1. Bilateral pulmonary infiltrates more extensive on the RIGHT. Very little kendra nge since the last exam.
[2025-01-11] MEDS: budesonide 0.5 mg/2 mL Neb INHALATION ×2 (08:32→19:24)
[2025-01-11] MEDS: ipratropium-albuterol 3 mL Neb INHALATION ×4 (08:32→19:24)
[2025-01-11] MEDS: acetylcysteine 200 mg/mL MDV 10 mL INHALATION (08:33)
[2025-01-11] MEDS: dexmedeTOMIDine 0.9 % NaCL 400 MCG/100 ML PREMIX 5.44 MCG IV (08:45)
[2025-01-11] MEDS: insulin lispro 100 unit/1 mL SUBCUT ×2 (09:16→22:09)
[2025-01-11] MEDS: meropenem 500 mg SDV IVP ×2 (09:17→21:58)
[2025-01-11] MEDS: magnesium oxide 400 mg tablet PO ×2 (09:25→17:37)
[2025-01-11] MEDS: guaiFENesin 600 mg Tablet 1200 MG PO ×2 (09:25→17:37)
[2025-01-11] MEDS: montelukast sodium 10 mg Tablet PO (09:26)
[2025-01-11] MEDS: metoprolol succinate ER (24 HR) 25 mg Tablet 50 MG PO (09:26)
[2025-01-11] MEDS: nystatin 100,000 unit/mL UDC 5 mL 100000 UNIT PO ×4 (09:26→21:51)
[2025-01-11 11:09] LABS: Anion Gap 13.6 (5-19); Blood Urea Nitrogen 74 mg/dL (8-23); Calcium 9.6 mg/dL (8.5-10.5); Chloride 93 mmol/L (98-107); Creatinine Clr Calc Pharmacy 21.7922; Glucose 147 mg/dL (65-115); Osmolality Calculated 331 mOsm/kg (285-295); Sodium 148 mmol/L (136-145)
[2025-01-11 11:12] LABS: Carbon Dioxide 44 mmol/L (22-29); Potassium 2.6 mmol/L (3.5-5.1)
[2025-01-11 12:18] LABS: Glucose Point of Care 126 mg/dL (70-110)
[2025-01-11] MEDS: dexamethasone 10 mg/mL INJ 4 MG IVP (12:25)
--- NOTE | 2025-01-11 13:09 | PC.OT ---
OT evaluation withheld this date. Patient in non-responsive. Nursing notified. To attempt on a later date/time.
[2025-01-11] MEDS: amiodarone 200 mg Tablet 400 MG PO (13:18)
[2025-01-11] MEDS: potassium chloride ER 20 mEq Tablet 40 MEQ PO (13:18)
[2025-01-11] MEDS: nicotine 14 mg Patch 1 PATCH TRANSDERMA (13:18)
[2025-01-11 14:38] LABS: Vancomycin Random 20.4 ug/mL (20.0-40.0)
--- NOTE | 2025-01-11 16:54 | P.PN_ITS ---
Subjective 2 Subjective: Patient was seen this morning, she is alert and awake, she can follow some commands, does have episodes of encephalopathy, she is currently off BiPAP looks comfortable, normotensive, afebrile overnight Vitals/I&O/Wt Last Vital Signs Temp 97.1 F L 01/11/25 06:00 Pulse 73 01/11/25 16:00 Resp 30 H 01/11/25 16:00 BP 102/58 01/11/25 16:00 Pulse Ox 96 01/11/25 16:46 O2 Del Method BiPAP 01/11/25 16:46 O2 Flow Rate 4 01/11/25 15:53 FiO2 30 01/11/25 16:46 01/11/25 01/11/25 01/11/25 06:59 14:59 22:59 Intake Total 139.969 / 661.515 37.717 / 37.717 Output Total 2750 / 4850 Balance -2610.031 / -4188.485 37.717 / 37.717 Weight last 48 hrs Weight 72.575 kg Physical Exam 2 Const: COMMON NORMALS: no acute distress ORIENTATION/CONSCIOUSNESS: Yes awake, Yes oriented to person and Yes oriented to place Neck/C-Spine: COMMON NORMALS: no JVD Resp: COMMON NORMALS: normal respiratory effort, No retractions and No use of accessory muscles AUSCULTATION: crackles and wheezes Cardio: COMMON NORMALS: no JVD, regular rate, regular rhythm, S1 normal heart sound present and S2 normal heart sound present RATE: regular rate RHYTHM: regular rhythm HEART SOUNDS: S1 normal heart sound present and S2 normal heart sound present GI: COMMON NORMALS: Normal to inspection, nondistended, normoactive bowel sounds present and non-tender Neuro: SENSORIUM/ORIENTATION: Yes oriented to person and Yes oriented to place Urinary Catheter Management: Matias: Cath Placed During This Visit: yes Reason for Continuing Indwelling Catheter: Accurate Measurement of Urinary Output in Critically Ill Patients Urinary Catheter Date of Insertion: 01/10/25 Urinary Catheter Time of Insertion: 15:08 Data 01/11/25 03:38 01/11/25 10:25 Micro: Microbiology 01/05/25 10:57 Blood Culture - Final Blood NO GROWTH AFTER 5 DAYS 01/05/25 10:55 Blood Culture - Final Blood NO GROWTH AFTER 5 DAYS A&P Assessment and plan (1) Acute and chronic respiratory failure ([id number]): -Multifactorial -From influenza -From aspiration pneumonia -From fluid overload, systolic CHF exacerbation, BNP over 45,000 -COPD exacerbation -A-fib with RVR Plan -Monitor the ICU closely -Low threshold for intubation -Currently on BiPAP, BiPAP as needed during the day, scheduled during the night -Continue Lasix 40 IV twice daily -Cardiac echo pending -Continue Tamiflu -Broad-spectrum antibody therapy vancomycin, meropenem -Monitor respiratory status -DuoNeb as needed -Continue Decadron 4 mg IV push every 24 hours (2) Atrial fibrillation with rapid ventricular response: Transition of amiodarone drip to p.o. amiodarone Switch to therapeutic Lovenox as hemoglobin is stable (3) Influenza: Tamiflu 30 mg daily (4) Hypotension: Monitor (5) Acute kidney injury superimposed on CKD: Creatinine 2.0 -Monitor urine output, monitor creatinine (6) Acute on chronic anemia: Hemoglobin stable (7) Nicotine dependence, cigarettes, with unspecified nicotine-induced disorders: (8) Diabetes 1.5, managed as type 2: Low-dose sliding scale Lantus (9) Acute encephalopathy: - Likely secondary aspiration pneumonia, sepsis -Mentation is improving (10) Acute CHF: (11) Aspiration pneumonia: (12) Sepsis: - Second aspiration pneumonia, influenza Qualifiers: Acute renal failure type: unspecified Sepsis acute organ dysfunction status: with acute organ dysfunction Sepsis type: sepsis due to unspecified organism Severe sepsis acute organ dysfunction type: acute renal failure S evere sepsis shock status: without septic shock Qualified Code(s): A41.9 - Sepsis, unspecified organism; R65.20 - Severe sepsis without septic shock; N17.9 - Acute kidney failure, unspecified Plan - Hypokalemia, replace potassium Plan for today IV diuresis IV antibiotics start dysphagia level 4 diet, monitor respiratory status closely, continue IV antibiotics, monitor urine output monitor creatinine monitor potassium, monitor mentation PDMP PDMP Reviewed: Not Reviewed Attestations 2 Medical Necessity Statement*: Patient requires hospitalization for acute hypoxic respiratory failure secondary to fluid overload, CHF, pneumonia, sepsis, COPD, A-fib, influenza Diagnoses Acute and chronic respiratory failure ([id number]) J96.20 Atrial fibrillation with rapid ventricular response I48.91 Influenza J11.1 Hypotension I95.9 Acute kidney injury superimposed on CKD N17.9; N18.9 Acute on chronic anemia D64.9 Nicotine dependence, cigarettes, with unspecified nicotine-induced disorders 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
[2025-01-11 17:11] LABS: Anion Gap 15.3 (5-19); Blood Urea Nitrogen 78 mg/dL (8-23); Calcium 9.7 mg/dL (8.5-10.5); Chloride 94 mmol/L (98-107); Creatinine Clr Calc Pharmacy 20.7026; Glucose 117 mg/dL (65-115); Osmolality Calculated 340 mOsm/kg (285-295); Potassium 3.3 mmol/L (3.5-5.1); Sodium 153 mmol/L (136-145)
[2025-01-11 17:13] LABS: Carbon Dioxide 47 mmol/L (22-29)
[2025-01-11] MEDS: enoxaparin 80 mg/0.8 mL Syringe 70 MG SUBCUT (17:37)
[2025-01-11] MEDS: famotidine 20 mg Tablet PO (17:37)
[2025-01-11] MEDS: potassium chloride ER 20 mEq Tablet PO (17:37)
[2025-01-11 17:45] LABS: Glucose Point of Care 131 mg/dL (70-110)
[2025-01-11] MEDS: lidocaine 1% 5 ML in potassium chloride premix 100 ML 52.5 ML IV (18:21)
[2025-01-11] MEDS: dexmedeTOMIDine 0.9 % NaCL 400 MCG/100 ML PREMIX 7.26 MCG IV (21:31)
[2025-01-11] MEDS: atorvastatin 40 mg Tablet 80 MG PO (21:45)
[2025-01-11 22:08] LABS: Glucose Point of Care 173 mg/dL (70-110)
[2025-01-12] VITALS (31 sets, daily range): BP systolic 91–138; BP diastolic 50–95; PULSE 68–97; RESP 13–25; TEMP 36.4–36.6; O2SAT 93–100
[2025-01-12] MEDS: amiodarone 200 mg Tablet 400 MG PO ×3 (00:32→23:23)
[2025-01-12 02:02] LABS: Anion Gap 15.4 (5-19); Blood Urea Nitrogen 74 mg/dL (8-23); Calcium 9.5 mg/dL (8.5-10.5); Chloride 94 mmol/L (98-107); Creatinine Clr Calc Pharmacy 23.0029; Glucose 192 mg/dL (65-115); Osmolality Calculated 339 mOsm/kg (285-295); Potassium 3.4 mmol/L (3.5-5.1); Sodium 151 mmol/L (136-145)
[2025-01-12 02:11] LABS: Carbon Dioxide 45 mmol/L (22-29)
[2025-01-12 04:18] LABS: Hematocrit 37.3 % (36-47); Lymphocytes # 0.3 10^3/uL (0.8-4.8); Lymphocytes % 4.7 %; Mean Corpuscular HGB Conc 32.4 g/dL (30-55); Mean Corpuscular Hemoglobin 29.1 pg (27-33); Mean Corpuscular Volume 89.7 fl (85-98); Mean Platelet Volume 11.5 fL (7.4-10.4); Monocytes # 0.5 10^3/uL (0.2-0.9); Monocytes % 7.4 %; Neutrophils % 87.5 %; Nucleated Red Blood Cells % 0 %; Platelet Count 167 10^3/cmm (157-399); Red Blood Count 4.16 10^6/uL (3.85-5.65); Red Cell Distribution Width 15.9 % (12.1-15.1); White Blood Count 6.86 10^3/uL (3.29-11.43)
[2025-01-12 04:43] LABS: Alanine Aminotransferase 18 U/L (0-33); Albumin Level 3.3 g/dL (3.5-5.2); Alkaline Phosphatase 133 U/L (35-105); Anion Gap 15.3 (5-19); Aspartate Amino Transferase 22 U/L (0-32); Blood Urea Nitrogen 73 mg/dL (8-23); C Reactive Protein 62.6 mg/L (0.0-4.9); Calcium 9.9 mg/dL (8.5-10.5); Chloride 94 mmol/L (98-107); Creatinine Clr Calc Pharmacy 23.0029; Globulin 3.2 g/dL (1.3-4.6); Glucose 179 mg/dL (65-115); Magnesium 2.1 mg/dL (1.7-2.3); Osmolality Calculated 338 mOsm/kg (285-295); Potassium 3.3 mmol/L (3.5-5.1); Sodium 151 mmol/L (136-145); Total Bilirubin 2.4 mg/dL (0.15-1.2); Total Protein 6.5 g/dL (6.6-8.7)
[2025-01-12 05:08] LABS: Carbon Dioxide 45 mmol/L (22-29); NT Pro B Type Natriuretic Pept 41817 pg/mL (0-450)
[2025-01-12 06:00] LABS: Glucose Point of Care 177 mg/dL (70-110)
[2025-01-12] MEDS: FUROsemide 10 mg/mL SDV 4mL 40 MG IVP ×2 (06:13→17:30)
[2025-01-12] MEDS: insulin glargine 100 units/1 mL 14 UNIT SUBCUT (06:13)
[2025-01-12] MEDS: dexmedeTOMIDine 0.9 % NaCL 400 MCG/100 ML PREMIX 12.7 MCG IV (06:24)
[2025-01-12] MEDS: ipratropium-albuterol 3 mL Neb INHALATION ×4 (08:01→19:39)
[2025-01-12] MEDS: budesonide 0.5 mg/2 mL Neb INHALATION ×2 (08:01→19:39)
[2025-01-12 08:08] LABS: Glucose Point of Care 188 mg/dL (70-110)
[2025-01-12] MEDS: insulin lispro 100 unit/1 mL SUBCUT ×2 (08:12→12:28)
[2025-01-12] MEDS: lidocaine 1% 5 ML in potassium chloride premix 100 ML 52.5 ML IV (08:22)
--- NOTE | 2025-01-12 08:46 | PC.NURSE ---
patient AO to place name and month, not able to tolerate being off bipap unable to give po meds at this time. keeps pulling off bipap mask telemetry and not cooperating in turning but moves self in bed
[2025-01-12] MEDS: meropenem 500 mg SDV IVP ×2 (09:42→20:22)
[2025-01-12 10:55] LABS: Glucose Point of Care 173 mg/dL (70-110)
[2025-01-12] MEDS: dexamethasone 10 mg/mL INJ 4 MG IVP (12:28)
[2025-01-12] MEDS: nicotine 14 mg Patch 1 PATCH TRANSDERMA (12:31)
[2025-01-12] MEDS: nystatin 100,000 unit/mL UDC 5 mL 100000 UNIT PO ×3 (12:32→20:22)
[2025-01-12 13:00] LABS: Vancomycin Trough 14.1 ug/mL (10-15)
--- NOTE | 2025-01-12 13:52 | PC.SOCIAL ---
IMM updated IMM dated and initialed, copy given to patient and copy placed in chart
[2025-01-12] MEDS: vancomycin 500 MG in sodium chloride 0.9% (plus) 100 ML 200 MG IV (14:12)
--- NOTE | 2025-01-12 15:04 | PC.SLP ---
Therapist attempted to see patient but was unable due to patient getting bath and with family. Therapist attempted to see her a second time today and patient was throwing up. Will attempt to see tomorrow.
[2025-01-12] MEDS: dexmedeTOMIDine 0.9 % NaCL 400 MCG/100 ML PREMIX 9.07 MCG IV (16:37)
[2025-01-12 16:59] LABS: Glucose Point of Care 139 mg/dL (70-110)
--- NOTE | 2025-01-12 17:19 | P.PN_ITS ---
Subjective 2 Subjective: Patient was seen this morning, she is alert to person, to place, not to time she tells me that she wants to go home she is only got a stay in the hospital for another day, she denies any chest pain, no palpitations, does report shortness of breath, we discussed her respiratory failure or fluid overload requiring diuresis we discussed her echocardiogram findings however she is adamant about going home tomorrow, remains on Precedex drip for agitation, she came off BiPAP for a few minutes however her O2 sats would drop into the 80s according to nursing staff will continue BiPAP for now Vitals/I&O/Wt Last Vital Signs Temp 97.5 F L 01/12/25 15:38 Pulse 85 01/12/25 16:00 Resp 14 01/12/25 16:00 BP 94/67 01/12/25 16:00 Pulse Ox 98 01/12/25 16:00 O2 Del Method High Flow Nasal Cannula 01/12/25 15:19 O2 Flow Rate 5 01/12/25 15:19 FiO2 30 01/12/25 08:00 01/12/25 01/12/25 01/12/25 06:59 14:59 22:59 Intake Total 116.956 / 446.748 300 / 300 Output Total 1875 / 4475 Balance -1758.044 / -4028.252 300 / 300 Physical Exam 2 Const: COMMON NORMALS: no acute distress ORIENTATION/CONSCIOUSNESS: Yes awake, Yes oriented to person and Yes confused; not oriented to place and not oriented to time Eye: COMMON NORMALS: Equal, round and reactive pupils present PUPIL: Yes Equal, round and reactive pupils present Resp: COMMON NORMALS: normal respiratory effort, No retractions and No use of accessory muscles AUSCULTATION: crackles and wheezes Cardio: COMMON NORMALS: regular rate, regular rhythm, S1 normal heart sound present and S2 normal heart sound present RATE: regular rate RHYTHM: r egular rhythm HEART SOUNDS: S1 normal heart sound present and S2 normal heart sound present GI: COMMON NORMALS: Normal to inspection, nondistended, normoactive bowel sounds present and non-tender Extremity: COMMON NORMALS: no pedal edema Neuro: SENSORIUM/ORIENTATION: Yes oriented to person, No oriented to place and No oriented to time Urinary Catheter Management: Matias: Cath Placed During This Visit: yes Reason for Continuing Indwelling Catheter: Accurate Measurement of Urinary Output in Critically Ill Patients Urinary Catheter Date of Insertion: 01/10/25 Urinary Catheter Time of Insertion: 15:08 Data 01/12/25 03:52 01/12/25 03:52 A&P Assessment and plan (1) Acute and chronic respiratory failure ([id number]-[id number]): -Multifactorial -From influenza -From aspiration pneumonia -From fluid overload, systolic CHF exacerbation, BNP over 45,000 -COPD exacerbation -A-fib with RVR CONCLUSIONS Moderately increased left ventricular cavity size. Severely decreased left ventricular systolic function. Left ventricular ejection fraction is estimated at 30 %. Global left ventricular hypokinesis. Moderately increased left atrial size. Moderately thickened mitral valve. Mild mitral annular calcification. No mitral valve stenosis. Moderate-severe mitral valve regurgitation. Moderate aortic valve calcification. No aortic valve stenosis. Trace aortic valve regurgitation. Mild tricuspid valve regurgitation. There is no pericardial effusion. Plan -Monitor the ICU closely -Currently on BiPAP, BiPAP as needed during the day, scheduled during the night -Continue Lasix 40 IV twice daily -Continue Tamiflu -Broad-spectrum antibody therapy vancomycin, meropenem -Monitor respiratory status -DuoNeb as needed -Continue Decadron 4 mg IV push every 24 hours (2) Atrial fibrillation with rapid ventricular response: Transition of amiodarone drip to p.o. amiodarone therapeutic Lovenox as hemoglobin is stable (3) Influenza: Tamiflu 30 mg daily (4) Hypotension: Monitor (5) Acute kidney injury superimposed on CKD: Creatinine 2.0 -Monitor urine output, monitor creatinine (6) Acute on chronic anemia: Hemoglobin stable (7) Nicotine dependence, cigarettes, with unspecified nicotine-induced disorders: (8) Diabetes 1.5, managed as type 2: Low-dose sliding scale Lantus (9) Acute encephalopathy: - Likely secondary aspiration pneumonia, sepsis -Mentation is improving (10) Acute CHF: CONCLUSIONS Moderately increased left ventricular cavity size. Severely decreased left ventricular systolic function. Left ventricular ejection fraction is estimated at 30 %. Global left ventricular hypokinesis. Moderately increased left atrial size. Moderately thickened mitral valve. Mild mitral annular calcification. No mitral valve stenosis. Moderate-severe mitral valve regurgitation. Moderate aortic valve calcification. No aortic valve stenosis. Trace aortic valve regurgitation. Mild tricuspid valve regurgitation. There is no pericardial effusion. Stress test in April 2021 IMPRESSIONS 1. Abnormal myocardial perfusion imaging with small infarct noted in the apical inferior wall. No evidence of ischemia 2. LV systolic function is normal with EF of 59% -Aspirin, statin, therapeutic Lovenox -Will need repeat stress testing and/or coronary angiography and cardiology evaluation at some point, once her respiratory status is improved (11) Aspiration pneumonia: (12) Sepsis: - Second aspiration pneumonia, influenza Qualifiers: Acute renal failure type: unspecified Sepsis acute organ dysfunction status: with acute organ dysfunction Sepsis type: sepsis due to unspecified organism Severe sepsis acute organ dysfunction type: acute renal failure S evere sepsis shock status: without septic shock Qualified Code(s): A41.9 - Sepsis, unspecified organism; R65.20 - Severe sepsis without septic shock; N17.9 - Acute kidney failure, unspecified Plan - Hypokalemia, replace potassium -Hyponatremia likely related to fluid overload, monitor Plan for today IV diuresis IV antibiotics start dysphagia level 4 diet, monitor respiratory status closely, continue IV antibiotics, monitor urine output monitor creatinine monitor potassium, monitor mentation PDMP PDMP Reviewed: Not Reviewed Attestations 2 Medical Necessity Statement*: Patient requires hospitalization for acute respiratory failure, CHF exacerbation, influenza, pneumonia, hyponatremia, hypokalemia Diagnoses Acute and chronic respiratory failure (xzpwa-[id number]) J96.20 Atrial fibrillation with rapid ventricular response I48.91 Influenza J11.1 Hypotension I95.9 Acute kidney injury superimposed on CKD N17.9; N18.9 Acute on chronic anemia D64.9 Nicotine dependence, cigarettes, with unspecified nicotine-induced disorders 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
[2025-01-12] MEDS: famotidine 20 mg Tablet PO (17:29)
[2025-01-12] MEDS: magnesium oxide 400 mg tablet PO (17:29)
[2025-01-12] MEDS: guaiFENesin 600 mg Tablet 1200 MG PO (17:29)
[2025-01-12] MEDS: potassium chloride ER 20 mEq Tablet PO (17:29)
[2025-01-12] MEDS: enoxaparin 80 mg/0.8 mL Syringe 70 MG SUBCUT (17:30)
[2025-01-12] MEDS: acetaZOLAMIDE 250 mg Tablet PO (17:32)
[2025-01-12 20:12] LABS: Glucose Point of Care 132 mg/dL (70-110)
[2025-01-12] MEDS: atorvastatin 40 mg Tablet 80 MG PO (20:22)
[2025-01-13] VITALS (19 sets, daily range): BP systolic 88–123; BP diastolic 57–91; PULSE 73–103; RESP 11–24; TEMP 36.6–37.2; O2SAT 95–99; BMI 28.0
[2025-01-13 03:30] LABS: Hematocrit 43.4 % (36-47); Lymphocytes # 0.3 10^3/uL (0.8-4.8); Lymphocytes % 3.2 %; Mean Corpuscular HGB Conc 31.8 g/dL (30-55); Mean Corpuscular Hemoglobin 28.8 pg (27-33); Mean Corpuscular Volume 90.4 fl (85-98); Mean Platelet Volume 11.7 fL (7.4-10.4); Monocytes # 0.7 10^3/uL (0.2-0.9); Neutrophils # 8.39 10^3/uL (1.8-7.7); Neutrophils % 89.4 %; Nucleated Red Blood Cells % 0 %; Platelet Count 226 10^3/cmm (157-399); Red Cell Distribution Width 15.5 % (12.1-15.1); White Blood Count 9.39 10^3/uL (3.29-11.43)
[2025-01-13 03:52] LABS: Procalcitonin 0.27 ng/mL (0-0.5)
[2025-01-13 03:55] LABS: Alanine Aminotransferase 19 U/L (0-33); Albumin Level 3.6 g/dL (3.5-5.2); Alkaline Phosphatase 143 U/L (35-105); Anion Gap 16.1 (5-19); Aspartate Amino Transferase 21 U/L (0-32); Blood Urea Nitrogen 72 mg/dL (8-23); C Reactive Protein 44.8 mg/L (0.0-4.9); Chloride 91 mmol/L (98-107); Globulin 3.7 g/dL (1.3-4.6); Glucose 172 mg/dL (65-115); Magnesium 2.1 mg/dL (1.7-2.3); Osmolality Calculated 335 mOsm/kg (285-295); Potassium 3.1 mmol/L (3.5-5.1); Sodium 150 mmol/L (136-145); Total Bilirubin 2.3 mg/dL (0.15-1.2); Total Protein 7.3 g/dL (6.6-8.7)
[2025-01-13 03:58] LABS: Carbon Dioxide 46 mmol/L (22-29)
[2025-01-13 04:28] LABS: NT Pro B Type Natriuretic Pept 31175 pg/mL (0-450)
[2025-01-13] MEDS: potassium chloride ER 20 mEq Tablet PO ×2 (05:14→16:31)
[2025-01-13] MEDS: FUROsemide 10 mg/mL SDV 4mL 40 MG IVP (05:14)
[2025-01-13 05:21] LABS: Glucose Point of Care 101 mg/dL (70-110)
[2025-01-13] MEDS: oxyCODONE 5 mg IR Tab/Cap 15 MG PO (05:32)
[2025-01-13] MEDS: ipratropium-albuterol 3 mL Neb INHALATION ×4 (08:11→20:20)
[2025-01-13] MEDS: budesonide 0.5 mg/2 mL Neb INHALATION ×2 (08:11→20:20)
[2025-01-13 08:14] LABS: Glucose Point of Care 108 mg/dL (70-110)
[2025-01-13] MEDS: ondansetron 2 mg/ML SDV 2 mL 4 MG IVP (09:13)
[2025-01-13] MEDS: nystatin 100,000 unit/mL UDC 5 mL 100000 UNIT PO ×4 (09:15→20:13)
[2025-01-13] MEDS: montelukast sodium 10 mg Tablet PO (09:17)
[2025-01-13] MEDS: guaiFENesin 600 mg Tablet 1200 MG PO ×2 (09:18→16:31)
[2025-01-13] MEDS: magnesium oxide 400 mg tablet PO ×2 (09:18→16:32)
[2025-01-13] MEDS: metoprolol succinate ER (24 HR) 25 mg Tablet 50 MG PO (09:18)
[2025-01-13] MEDS: famotidine 20 mg Tablet PO ×2 (09:19→16:31)
[2025-01-13] MEDS: potassium chloride ER 20 mEq Tablet 40 MEQ PO (09:19)
[2025-01-13] MEDS: acetaZOLAMIDE 250 mg Tablet PO ×2 (09:40→20:13)
[2025-01-13] MEDS: metOLazone 5 MG Tablet PO (09:40)
[2025-01-13] MEDS: polyethylene glycol 3350 Pkt 17 gm PO (09:49)
[2025-01-13] MEDS: meropenem 500 mg SDV IVP ×2 (09:50→21:15)
[2025-01-13 11:33] LABS: Glucose Point of Care 121 mg/dL (70-110)
[2025-01-13] MEDS: aspirin 81 mg EC Tablet PO (12:49)
[2025-01-13] MEDS: amiodarone 200 mg Tablet 400 MG PO (12:49)
[2025-01-13] MEDS: dexamethasone 10 mg/mL INJ 4 MG IVP (12:50)
--- NOTE | 2025-01-13 15:34 | P.PN_ITS ---
Subjective 2 Subjective: Patient was seen this morning, she is quite upset about being here in the hospital, we discussed her prolonged hospitalization her respiratory failure multifactorial from pneumonia, fluid overload her SONNY, her hyponatremia, her echocardiogram findings, she is frustrated about being here in the hospital she really wants to go home she tells that she has a lot of support at home, discussed that the first plan will be to move her out of the ICU and then have PT work with her and see what her overall mobility is in her gait is as she might need rehab at a rehab facility however she is quite upset about going to a rehab facility she thinks that she can go home we discussed that we will see how her gait and her stability is how she progresses from a respiratory failure, and continue to monitor closely, she is more agreeable and she understands she has had's significant hospitalization Vitals/I&O/Wt Last Vital Signs Temp 97.9 F 01/12/25 20:03 Pulse 88 01/13/25 15:04 Resp 16 01/13/25 15:04 BP 107/91 01/13/25 11:00 Pulse Ox 98 01/13/25 15:04 O2 Del Method Nasal Cannula 01/13/25 15:04 O2 Flow Rate 3 01/13/25 15:04 FiO2 30 01/12/25 08:00 01/13/25 01/13/25 01/13/25 06:59 14:59 22:59 Intake Total 98.860 / 398.860 400 / 400 Output Total 1600 / 3100 700 / 700 Balance -1501.140 / -2701.140 -300 / -300 Weight last 48 hrs Weight 71.753 kg Physical Exam 2 Const: COMMON NORMALS: no acute distress and patient oriented x3 Resp: COMMON NORMALS: normal respiratory effort, No retractions and No use of accessory muscles AUSCULTATION: crackles and wheezes Cardio: COMMON NORMALS: regular rate, regular rhythm, S1 normal heart sound present and S2 normal heart sound present RATE: regular rate RHYTHM: r egular rhythm HEART SOUNDS: S1 normal heart sound present and S2 normal heart sound present GI: COMMON NORMALS: Normal to inspection, nondistended, normoactive bowel sounds present and non-tender Extremity: COMMON NORMALS: no pedal edema Neuro: COMMON NORMALS: patient oriented x3, CN's II-XII intact bilaterally and moves all extremities Psych: COMMON NORMALS: mental status grossly normal Urinary Catheter Management: Matias: Cath Placed During This Visit: yes Reason for Continuing Indwelling Catheter: Accurate Measurement of Urinary Output in Critically Ill Patients Urinary Catheter Date of Insertion: 01/10/25 Urinary Catheter Time of Insertion: 15:08 Data 01/13/25 02:30 01/13/25 02:30 A&P Assessment and plan (1) Acute and chronic respiratory failure (xjypq-ca-[id number]): -Multifactorial -From influenza -From aspiration pneumonia -From fluid overload, systolic CHF exacerbation, BNP over 45,000 -COPD exacerbation -A-fib with RVR CONCLUSIONS Moderately increased left ventricular cavity size. Severely decreased left ventricular systolic function. Left ventricular ejection fraction is estimated at 30 %. Global left ventricular hypokinesis. Moderately increased left atrial size. Moderately thickened mitral valve. Mild mitral annular calcification. No mitral valve stenosis. Moderate-severe mitral valve regurgitation. Moderate aortic valve calcification. No aortic valve stenosis. Trace aortic valve regurgitation. Mild tricuspid valve regurgitation. There is no pericardial effusion. Plan -Will moved to cardiac stepdown unit -Currently on BiPAP, BiPAP as needed during the day, scheduled during the night -Continue Lasix 40 IV twice daily -Completed Tamiflu -Broad-spectrum antibody therapy meropenem, stop vancomycin -Monitor respiratory status -DuoNeb as needed -De-escalate to Decadron 2 mg daily burst (2) Atrial fibrillation with rapid ventricular response: Transition of amiodarone drip to p.o. amiodarone therapeutic Lovenox as hemoglobin is stable (3) Influenza: Tamiflu 30 mg daily, completed (4) Hypotension: Monitor (5) Acute kidney injury superimposed on CKD: Creatinine 1.7 -Monitor urine output, monitor creatinine (6) Acute on chronic anemia: Hemoglobin stable (7) Nicotine dependence, cigarettes, with unspecified nicotine-induced disorders: (8) Diabetes 1.5, managed as type 2: Low-dose sliding scale Lantus (9) Acute encephalopathy: - Likely secondary aspiration pneumonia, sepsis -Mentation is improving (10) Acute CHF: CONCLUSIONS Moderately increased left ventricular cavity size. Severely decreased left ventricular systolic function. Left ventricular ejection fraction is estimated at 30 %. Global left ventricular hypokinesis. Moderately increased left atrial size. Moderately thickened mitral valve. Mild mitral annular calcification. No mitral valve stenosis. Moderate-severe mitral valve regurgitation. Moderate aortic valve calcification. No aortic valve stenosis. Trace aortic valve regurgitation. Mild tricuspid valve regurgitation. There is no pericardial effusion. Stress test in April 2021 IMPRESSIONS 1. Abnormal myocardial perfusion imaging with small infarct noted in the apical inferior wall. No evidence of ischemia 2. LV systolic function is normal with EF of 59% -Aspirin, statin, therapeutic Lovenox -Will need repeat stress testing and/or coronary angiography and cardiology evaluation at some point, once her respiratory status is improved (11) Aspiration pneumonia: (12) Sepsis: - Second aspiration pneumonia, influenza Qualifiers: Acute renal failure type: unspecified Sepsis acute organ dysfunction status: with acute organ dysfunction Sepsis type: sepsis due to unspecified organism Severe sepsis acute organ dysfunction type: acute renal failure S evere sepsis shock status: without septic shock Qualified Code(s): A41.9 - Sepsis, unspecified organism; R65.20 - Severe sepsis without septic shock; N17.9 - Acute kidney failure, unspecified Plan - Hypokalemia, replace potassium -Hyponatremia likely related to fluid overload, monitor -Uremia, improving Plan for today monitor serum sodium, IV diuresis, advance diet to dysphagia level 5 diet, stop vancomycin continue meropenem, moved to cardiac stepdown unit, PT OT PDMP PDMP Reviewed: Not Reviewed Attestations 2 Medical Necessity Statement*: Patient requires hospitalization for acute respiratory failure requiring IV antibiotics, CHF requiring IV diuresis Diagnoses Acute and chronic respiratory failure (tqyhh-fm-[id number]) J96.20 Atrial fibrillation with rapid ventricular response I48.91 Influenza J11.1 Hypotension I95.9 Acute kidney injury superimposed on CKD N17.9; N18.9 Acute on chronic anemia D64.9 Nicotine dependence, cigarettes, with unspecified nicotine-induced disorders 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
[2025-01-13 16:00] LABS: Vancomycin Trough 12.9 ug/mL (10-15)
[2025-01-13 16:27] LABS: Glucose Point of Care 166 mg/dL (70-110)
[2025-01-13] MEDS: enoxaparin 80 mg/0.8 mL Syringe 70 MG SUBCUT (16:31)
[2025-01-13] MEDS: bisacodyl 5 mg Tablet 10 MG PO (16:31)
[2025-01-13] MEDS: insulin lispro 100 unit/1 mL SUBCUT ×2 (16:38→21:15)
[2025-01-13] MEDS: atorvastatin 40 mg Tablet 80 MG PO (20:13)
[2025-01-13 20:48] LABS: Glucose Point of Care 200 mg/dL (70-110)
[2025-01-13] MEDS: BuSPIRONE 10 mg Tablet 5 MG PO (23:05)
[2025-01-14] VITALS (29 sets, daily range): BP systolic 86–119; BP diastolic 43–85; PULSE 69–108; RESP 13–27; TEMP 36.5–37; O2SAT 78–100
[2025-01-14] MEDS: amiodarone 200 mg Tablet 400 MG PO ×2 (01:21→14:12)
[2025-01-14 03:14] LABS: Hematocrit 40.9 % (36-47); Lymphocytes # 0.5 10^3/uL (0.8-4.8); Lymphocytes % 4.2 %; Mean Corpuscular HGB Conc 31.1 g/dL (30-55); Mean Corpuscular Hemoglobin 28.6 pg (27-33); Mean Corpuscular Volume 92.1 fl (85-98); Mean Platelet Volume 11.4 fL (7.4-10.4); Monocytes # 1.1 10^3/uL (0.2-0.9); Monocytes % 9.4 %; Neutrophils % 85.7 %; Nucleated Red Blood Cells % 0 %; Platelet Count 251 10^3/cmm (157-399); Red Blood Count 4.44 10^6/uL (3.85-5.65); Red Cell Distribution Width 15.1 % (12.1-15.1); White Blood Count 11.55 10^3/uL (3.29-11.43)
[2025-01-14] MEDS: acetaminophen 325 mg Tablet 650 MG PO (03:22)
[2025-01-14 03:45] LABS: C Reactive Protein 26.9 mg/L (0.0-4.9)
[2025-01-14 04:15] LABS: Calcium 9.1 mg/dL (8.5-10.5); Carbon Dioxide 38 mmol/L (22-29); Chloride 85 mmol/L (98-107); Creatinine Clr Calc Pharmacy 18.7182; Glucose 182 mg/dL (65-115); NT Pro B Type Natriuretic Pept 22203 pg/mL (0-450); Osmolality Calculated 314 mOsm/kg (285-295); Sodium 137 mmol/L (136-145)
[2025-01-14 04:19] LABS: Blood Urea Nitrogen 83 mg/dL (8-23)
[2025-01-14 04:44] LABS: Glucose Point of Care 155 mg/dL (70-110)
[2025-01-14] MEDS: potassium chloride ER 20 mEq Tablet PO (06:34)
[2025-01-14] MEDS: insulin glargine 100 units/1 mL 14 UNIT SUBCUT (06:34)
[2025-01-14 06:42] LABS: Glucose Point of Care 144 mg/dL (70-110)
[2025-01-14] MEDS: budesonide 0.5 mg/2 mL Neb INHALATION (08:01)
[2025-01-14] MEDS: ipratropium-albuterol 3 mL Neb INHALATION ×3 (08:01→16:35)
[2025-01-14] MEDS: insulin lispro 100 unit/1 mL SUBCUT (09:04)
[2025-01-14] MEDS: guaiFENesin 600 mg Tablet 1200 MG PO ×2 (09:05→18:12)
[2025-01-14] MEDS: nystatin 100,000 unit/mL UDC 5 mL 100000 UNIT PO ×4 (09:05→20:17)
[2025-01-14] MEDS: famotidine 20 mg Tablet PO ×2 (09:05→18:13)
[2025-01-14] MEDS: polyethylene glycol 3350 Pkt 17 gm PO (09:05)
[2025-01-14] MEDS: aspirin 81 mg EC Tablet PO (09:05)
[2025-01-14] MEDS: metoprolol succinate ER (24 HR) 25 mg Tablet 50 MG PO (09:06)
[2025-01-14] MEDS: magnesium oxide 400 mg tablet PO ×2 (09:06→18:13)
[2025-01-14] MEDS: montelukast sodium 10 mg Tablet PO (09:06)
[2025-01-14] MEDS: dexamethasone 10 mg/mL INJ 2 MG PO (09:06)
[2025-01-14] MEDS: bisacodyl 5 mg Tablet 10 MG PO (09:06)
[2025-01-14] MEDS: meropenem 500 mg SDV IVP ×2 (11:21→20:17)
[2025-01-14 11:27] LABS: Glucose Point of Care 152 mg/dL (70-110)
--- NOTE | 2025-01-14 12:17 | PC.NURSE ---
off sitter per dr small
[2025-01-14] MEDS: oxyCODONE 5 mg IR Tab/Cap 15 MG PO ×2 (14:29→23:30)
--- NOTE | 2025-01-14 16:26 | P.PN_ITS ---
Subjective 2 Subjective: Patient was examined this morning, she is sitting up in a chair, on 2 L, she tells me that she wants to go home, she has been here long enough, she is breathing better, she has a lot of help at home, we discussed her creatinine up to 2.2, will have to watch her creatinine closely, watch her respiratory failure closely, recheck BMP this afternoon Vitals/I&O/Wt Last Vital Signs Temp 97.7 F 01/14/25 12:00 Pulse 76 01/14/25 12:00 Resp 18 01/14/25 14:29 BP 109/57 01/14/25 12:00 Pulse Ox 96 01/14/25 11:32 O2 Del Method Nasal Cannula 01/14/25 11:32 O2 Flow Rate 2 01/14/25 11:32 FiO2 30 01/12/25 08:00 01/14/25 01/14/25 01/14/25 06:59 14:59 22:59 Intake Total 300 / 1120 60 / 60 Output Total 800 / 1900 Balance -500 / -780 60 / 60 Weight last 48 hrs Weight 71.753 kg Physical Exam 2 Const: COMMON NORMALS: no acute distress and patient oriented x3 Resp: COMMON NORMALS: normal respiratory effort, No retractions and No use of accessory muscles AUSCULTATION: crackles and wheezes Cardio: COMMON NORMALS: regular rate, regular rhythm, S1 normal heart sound present and S2 normal heart sound present RATE: regular rate RHYTHM: r egular rhythm HEART SOUNDS: S1 normal heart sound present and S2 normal heart sound present GI: COMMON NORMALS: Normal to inspection, nondistended, normoactive bowel sounds present and non-tender Extremity: COMMON NORMALS: no pedal edema Neuro: COMMON NORMALS: patient oriented x3 Psych: COMMON NORMALS: mental status grossly normal Urinary Catheter Management: Matias: Cath Placed During This Visit: yes Reason for Continuing Indwelling Catheter: Accurate Measurement of Urinary Output in Critically Ill Patients Urinary Catheter Date of Insertion: 01/10/25 Urinary Catheter Time of Insertion: 15:08 Data 01/14/25 02:56 01/14/25 02:56 A&P Assessment and plan (1) Acute and chronic respiratory failure ([id number]): -Multifactorial -From influenza -From aspiration pneumonia -From fluid overload, systolic CHF exacerbation, BNP over 45,000 -COPD exacerbation -A-fib with RVR CONCLUSIONS Moderately increased left ventricular cavity size. Severely decreased left ventricular systolic function. Left ventricular ejection fraction is estimated at 30 %. Global left ventricular hypokinesis. Moderately increased left atrial size. Moderately thickened mitral valve. Mild mitral annular calcification. No mitral valve stenosis. Moderate-severe mitral valve regurgitation. Moderate aortic valve calcification. No aortic valve stenosis. Trace aortic valve regurgitation. Mild tricuspid valve regurgitation. There is no pericardial effusion. Plan -Will moved to cardiac stepdown unit -As needed BiPAP during the day -Creatinine up to 2.2 hold Lasix -Completed Tamiflu -De-escalate antibiotics to Augmentin -Monitor respiratory status -DuoNeb as needed -De-escalate to Decadron 2 mg daily burst (2) Atrial fibrillation with rapid ventricular response: Transition of amiodarone drip to p.o. amiodarone therapeutic Lovenox as hemoglobin is stable (3) Influenza: Tamiflu 30 mg daily, completed (4) Hypotension: Monitor (5) Acute kidney injury superimposed on CKD: Creatinine 1.7 -Monitor urine output, monitor creatinine (6) Acute on chronic anemia: Hemoglobin stable (7) Nicotine dependence, cigarettes, with unspecified nicotine-induced disorders: (8) Diabetes 1.5, managed as type 2: Low-dose sliding scale Lantus (9) Acute encephalopathy: - Likely secondary aspiration pneumonia, sepsis -Mentation is improving (10) Acute CHF: CONCLUSIONS Moderately increased left ventricular cavity size. Severely decreased left ventricular systolic function. Left ventricular ejection fraction is estimated at 30 %. Global left ventricular hypokinesis. Moderately increased left atrial size. Moderately thickened mitral valve. Mild mitral annular calcification. No mitral valve stenosis. Moderate-severe mitral valve regurgitation. Moderate aortic valve calcification. No aortic valve stenosis. Trace aortic valve regurgitation. Mild tricuspid valve regurgitation. There is no pericardial effusion. Stress test in April 2021 IMPRESSIONS 1. Abnormal myocardial perfusion imaging with small infarct noted in the apical inferior wall. No evidence of ischemia 2. LV systolic function is normal with EF of 59% -Aspirin, statin, therapeutic Lovenox -Will need repeat stress testing and/or coronary angiography and cardiology evaluation at some point, once her respiratory status is improved (11) Aspiration pneumonia: (12) Sepsis: - Second aspiration pneumonia, influenza Qualifiers: Acute renal failure type: unspecified Sepsis acute organ dysfunction status: with acute organ dysfunction Sepsis type: sepsis due to unspecified organism Severe sepsis acute organ dysfunction type: acute renal failure S evere sepsis shock status: without septic shock Qualified Code(s): A41.9 - Sepsis, unspecified organism; R65.20 - Severe sepsis without septic shock; N17.9 - Acute kidney failure, unspecified Plan - Hypokalemia, replace potassium -Hyponatremia likely related to fluid overload, monitor -Uremia, improving Plan for today creatinine is up to 2.2, recheck BMP this afternoon hold diuresis, monitor for next 24 hours, if creatinine is reasonable can discharge tomorrow is -15 L so far PDMP PDMP Reviewed: Not Reviewed Attestations 2 Medical Necessity Statement*: Patient requires hospitalization for acute respiratory failure, aspiration pneumonia Diagnoses Acute and chronic respiratory failure ([id number]) J96.20 Atrial fibrillation with rapid ventricular response I48.91 Influenza J11.1 Hypotension I95.9 Acute kidney injury superimposed on CKD N17.9; N18.9 Acute on chronic anemia D64.9 Nicotine dependence, cigarettes, with unspecified nicotine-induced disorders 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
[2025-01-14 16:52] LABS: Anion Gap 13.3 (5-19); Calcium 9.3 mg/dL (8.5-10.5); Carbon Dioxide 39 mmol/L (22-29); Chloride 86 mmol/L (98-107); Creatinine Clr Calc Pharmacy 17.9044; Glucose 83 mg/dL (65-115); Osmolality Calculated 305 mOsm/kg (285-295); Potassium 3.3 mmol/L (3.5-5.1); Sodium 135 mmol/L (136-145)
[2025-01-14 17:03] LABS: Glucose Point of Care 81 mg/dL (70-110)
[2025-01-14 17:04] LABS: Blood Urea Nitrogen 84 mg/dL (8-23)
[2025-01-14] MEDS: enoxaparin 80 mg/0.8 mL Syringe 70 MG SUBCUT (18:12)
[2025-01-14] MEDS: sodium chloride 0.9% 1,000 ML 50 ML IV (18:13)
[2025-01-14] MEDS: atorvastatin 40 mg Tablet 80 MG PO (20:17)
[2025-01-14 20:57] LABS: Glucose Point of Care 82 mg/dL (70-110)
[2025-01-14] MEDS: BuSPIRONE 10 mg Tablet 5 MG PO (22:51)
[2025-01-15] VITALS (33 sets, daily range): BP systolic 84–124; BP diastolic 31–76; PULSE 59–80; RESP 9–28; TEMP 36.3–36.7; O2SAT 72–99
[2025-01-15 03:01] LABS: Basophils % 0.1 %; Hematocrit 38.7 % (36-47); Lymphocytes # 0.6 10^3/uL (0.8-4.8); Lymphocytes % 6.1 %; Mean Corpuscular HGB Conc 31.8 g/dL (30-55); Mean Corpuscular Hemoglobin 28.5 pg (27-33); Mean Corpuscular Volume 89.8 fl (85-98); Mean Platelet Volume 11.7 fL (7.4-10.4); Monocytes # 1.2 10^3/uL (0.2-0.9); Monocytes % 11.2 %; Neutrophils % 82.2 %; Nucleated Red Blood Cells % 0 %; Platelet Count 238 10^3/cmm (157-399); Red Blood Count 4.31 10^6/uL (3.85-5.65); Red Cell Distribution Width 14.9 % (12.1-15.1); White Blood Count 10.46 10^3/uL (3.29-11.43)
[2025-01-15 03:20] LABS: C Reactive Protein 15.3 mg/L (0.0-4.9)
[2025-01-15 03:24] LABS: Anion Gap 16.6 (5-19); Calcium 8.9 mg/dL (8.5-10.5); Carbon Dioxide 35 mmol/L (22-29); Chloride 92 mmol/L (98-107); NT Pro B Type Natriuretic Pept 14939 pg/mL (0-450); Osmolality Calculated 313 mOsm/kg (285-295); Sodium 141 mmol/L (136-145)
[2025-01-15 03:29] LABS: Blood Urea Nitrogen 83 mg/dL (8-23); Creatinine Clr Calc Pharmacy 19.6095; Glucose 32 mg/dL (65-115); Potassium 2.6 mmol/L (3.5-5.1)
[2025-01-15] MEDS: dextrose 10% 250 ML 1000 ML IV ×2 (03:33→12:02)
--- NOTE | 2025-01-15 04:59 | PC.NURSE ---
Addendum entered by Jen Vital RN 01/15/25 05:22: Given order for 40 meq KCL IV ONCE. Original Note: Began hypoglycemic protocol for patients critical blood glucose of 32, See MAR for administration. Notified hospitalist of blood glucose level and critical Potassium level of 2.6. No new orders given at this time.
[2025-01-15] MEDS: lidocaine 1% 5 ML in potassium chloride premix 100 ML 25 ML IV (05:54)
[2025-01-15 06:35] LABS: Glucose Point of Care 87 mg/dL (70-110)
[2025-01-15] MEDS: budesonide 0.5 mg/2 mL Neb INHALATION ×2 (07:22→19:50)
[2025-01-15] MEDS: ipratropium-albuterol 3 mL Neb INHALATION ×4 (07:22→19:50)
[2025-01-15] MEDS: nystatin 100,000 unit/mL UDC 5 mL 100000 UNIT PO ×4 (08:41→20:29)
[2025-01-15] MEDS: dexamethasone 10 mg/mL INJ 2 MG PO (08:42)
[2025-01-15] MEDS: aspirin 81 mg EC Tablet PO (08:42)
[2025-01-15] MEDS: meropenem 500 mg SDV IVP ×2 (08:42→20:30)
[2025-01-15] MEDS: polyethylene glycol 3350 Pkt 17 gm PO (08:42)
[2025-01-15] MEDS: famotidine 20 mg Tablet PO ×2 (08:43→16:59)
[2025-01-15] MEDS: guaiFENesin 600 mg Tablet 1200 MG PO ×2 (08:43→16:58)
[2025-01-15] MEDS: magnesium oxide 400 mg tablet PO ×2 (08:43→16:58)
[2025-01-15] MEDS: bisacodyl 5 mg Tablet 10 MG PO (08:43)
[2025-01-15] MEDS: montelukast sodium 10 mg Tablet PO (08:43)
[2025-01-15] MEDS: potassium chloride ER 20 mEq Tablet 40 MEQ PO (10:02)
--- NOTE | 2025-01-15 10:03 | XRR_ITS ---
PROCEDURE INFORMATION: Exam: XR Right Knee Exam date and time: 01/15/2025 2:45 PM Age: 84 years old Clinical indication: Right; Chronic RT knee pain; Swelling to RT lateral knee TECHNIQUE: Imaging protocol: Radiologic exam of the right knee. Views: 1 or 2 views. COMPARISON: [place] [id number] 12/26/2024 3:51 PM FINDINGS: Bones/joints: Very limited single sunrise view of the patella. No acute fracture or dislocation. Enthesophytes in the anterior patella. Soft tissues: No significant soft tissue swelling. XR/XR patella RT 1-2V [id number] IMPRESSION: No acute findings in this very limited single view of the patella.
--- NOTE | 2025-01-15 10:03 | XRR_ITS ---
PROCEDURE INFORMATION: Exam: XR Right Tibia and Fibula Exam date and time: 01/15/2025 2:39 PM Age: 84 years old Clinical indication: Right; Chronic RT knee pain; Swelling to RT lateral knee TECHNIQUE: Imaging protocol: Radiologic exam of the right tibia and fibula. Views: 2 views. COMPARISON: CR XR foot RT 2V [id number] 04/18/2021 8:37 PM FINDINGS: Bones/joints: Normal anatomic alignment. Mild osteoarthritis of the tibiotalar joint. Mild osteoarthritis of the patellofemoral joint. No acutely displaced fractures. No joint dislocation. No aggressive osseous lesions. Small plantar calcaneal spur. Soft tissues: No acute soft tissue findings. Vasculature: Mild atherosclerotic calcification of the arterial vasculature. XR/XR tibia fibula RT 2V [id number] IMPRESSION: No acute skeletal pathology.
[2025-01-15 11:58] LABS: Anion Gap 10.2 (5-19); Blood Urea Nitrogen 78 mg/dL (8-23); Calcium 8.6 mg/dL (8.5-10.5); Carbon Dioxide 38 mmol/L (22-29); Chloride 92 mmol/L (98-107); Creatinine Clr Calc Pharmacy 18.8657; Glucose 43 mg/dL (65-115); Osmolality Calculated 304 mOsm/kg (285-295); Potassium 3.2 mmol/L (3.5-5.1); Sodium 137 mmol/L (136-145)
[2025-01-15] MEDS: glucagon 1 mg/mL KIT 1 mL IM (12:19)
[2025-01-15] MEDS: dextrose 10% 1,000 ML 75 ML IV (12:47)
[2025-01-15] MEDS: octreotide 100 mcg/mL SDV 50 MCG IVP (12:47)
[2025-01-15 13:07] LABS: Thyroid Stimulating Hormone 1.38 uIU/mL (0.27-4.20)
[2025-01-15 13:42] LABS: Glucose Point of Care 35 mg/dL (70-110)
[2025-01-15 13:42] LABS: Glucose Point of Care 33 mg/dL (70-110)
[2025-01-15 13:42] LABS: Glucose Point of Care 121 mg/dL (70-110)
[2025-01-15 13:42] LABS: Glucose Point of Care 262 mg/dL (70-110)
--- NOTE | 2025-01-15 13:59 | P.PN_ITS ---
Subjective 2 Subjective: Patient was seen this morning, she had an episode of hypoglycemia early this morning blood sugar 80 she is alert and oriented x 3, following all commands denies any fevers, chills, no cough, she understands that she needs to be here in the hospital as she is developed hypoglycemia we will have to monitor her blood sugars closely, her creatinine is still 2.2 she is receiving fluids denies any chest pain, palpitations, shortness of breath, potassium 3.2 -Patient's blood sugar after D10 this af ternoon dropped again into the 40s, was given another D10 bolus started on a D10 drip, given glucagon she does take glipizide at home, however she has received here with the renal failure is possible that it might still be in her system, will give her 1 dose octreotide -Blood sugars are now up to 260s, will s top D10 drip, hold off on insulin sliding scale watch her next few blood sugars - Vitals/I&O/Wt Last Vital Signs Temp 97.4 F L 01/15/25 12:00 Pulse 71 01/15/25 12:00 Resp 14 01/15/25 12:00 BP 97/63 01/15/25 12:00 Pulse Ox 94 01/15/25 12:00 O2 Del Method Nasal Cannula 01/15/25 12:00 O2 Flow Rate 2 01/15/25 12:00 FiO2 30 01/12/25 08:00 01/14/25 01/15/25 01/15/25 22:59 06:59 14:59 Intake Total 250 / 310 450 / 760 355 / 355 Output Total 700 / 700 Balance 250 / 310 -250 / 60 355 / 355 Weight last 48 hrs Weight 72.938 kg Physical Exam 2 Const: COMMON NORMALS: no acute distress and patient oriented x3 Resp: COMMON NORMALS: normal respiratory effort, No retractions, No use of accessory muscles and clear to auscultation bilaterally AUSCULTATION: clear to auscultation bilaterally Cardio: COMMON NORMALS: regular rate, regular rhythm, S1 normal heart sound present and S2 normal heart sound present RATE: regular rate RHYTHM: r egular rhythm HEART SOUNDS: S1 normal heart sound present and S2 normal heart sound present GI: COMMON NORMALS: Normal to inspection, nondistended, normoactive bowel sounds present and non-tender Extremity: COMMON NORMALS: no pedal edema Neuro: COMMON NORMALS: patient oriented x3 Psych: COMMON NORMALS: mental status grossly normal Urinary Catheter Management: Matias: Cath Placed During This Visit: yes Reason for Continuing Indwelling Catheter: Other Urinary Catheter Date of Insertion: 01/10/25 Urinary Catheter Time of Insertion: 15:08 Data 01/15/25 02:25 01/15/25 10:58 A&P Assessment and plan (1) Acute and chronic respiratory failure ([id number]): -Multifactorial -From influenza -From aspiration pneumonia -From fluid overload, systolic CHF exacerbation, BNP over 45,000 -COPD exacerbation -A-fib with RVR CONCLUSIONS Moderately increased left ventricular cavity size. Severely decreased left ventricular systolic function. Left ventricular ejection fraction is estimated at 30 %. Global left ventricular hypokinesis. Moderately increased left atrial size. Moderately thickened mitral valve. Mild mitral annular calcification. No mitral valve stenosis. Moderate-severe mitral valve regurgitation. Moderate aortic valve calcification. No aortic valve stenosis. Trace aortic valve regurgitation. Mild tricuspid valve regurgitation. There is no pericardial effusion. Plan - moved to cardiac stepdown unit -As needed BiPAP during the day -Creatinine up to 2.2 hold Lasix -Completed Tamiflu -De-escalate antibiotics to Augmentin -Monitor respiratory status -DuoNeb as needed -De-escalate to Decadron 2 mg daily burst (2) Atrial fibrillation with rapid ventricular response: Transition of amiodarone drip to p.o. amiodarone therapeutic Lovenox as hemoglobin is stable (3) Influenza: Tamiflu 30 mg daily, completed (4) Hypotension: Monitor (5) Acute kidney injury superimposed on CKD: Creatinine 2.2, on fluids -Monitor urine output, monitor creatinine (6) Acute on chronic anemia: Hemoglobin stable (7) Nicotine dependence, cigarettes, with unspecified nicotine-induced disorders: (8) Diabetes 1.5, managed as type 2: On hold (9) Acute encephalopathy: - Likely secondary aspiration pneumonia, sepsis -Mentation is improving (10) Acute CHF: CONCLUSIONS Moderately increased left ventricular cavity size. Severely decreased left ventricular systolic function. Left ventricular ejection fraction is estimated at 30 %. Global left ventricular hypokinesis. Moderately increased left atrial size. Moderately thickened mitral valve. Mild mitral annular calcification. No mitral valve stenosis. Moderate-severe mitral valve regurgitation. Moderate aortic valve calcification. No aortic valve stenosis. Trace aortic valve regurgitation. Mild tricuspid valve regurgitation. There is no pericardial effusion. Stress test in April 2021 IMPRESSIONS 1. Abnormal myocardial perfusion imaging with small infarct noted in the apical inferior wall. No evidence of ischemia 2. LV systolic function is normal with EF of 59% -Aspirin, statin, therapeutic Lovenox -Will need repeat stress testing and/or coronary angiography and cardiology evaluation at some point, once her respiratory status is improved (11) Aspiration pneumonia: (12) Sepsis: - Second aspiration pneumonia, influenza Qualifiers: Acute renal failure type: unspecified Sepsis acute organ dysfunction status: with acute organ dysfunction Sepsis type: sepsis due to unspecified organism Severe sepsis acute organ dysfunction type: acute renal failure S evere sepsis shock status: without septic shock Qualified Code(s): A41.9 - Sepsis, unspecified organism; R65.20 - Severe sepsis without septic shock; N17.9 - Acute kidney failure, unspecified Plan - Hypokalemia, replace potassium -Uremia, improving -Hypoglycemia status post D10 bolus twice, D10 drip, glucagon, octreotide -Has a history of glipizide use, has not used any since she has been here in the hospital, possibly lingering in her system with her acute renal failure -Monitor blood sugars q. hourly Plan for today creatinine 2.2, monitor creatinine closely, IV fluids, potassium 3.2 replace, hypoglycemia, monitor closely PDMP PDMP Reviewed: Not Reviewed Attestations 2 Medical Necessity Statement*: Patient requires hospitalization for acute renal failure, SONNY, hypoglycemia, hypokalemia Diagnoses Acute and chronic respiratory failure (eepsi-[id number]) J96.20 Atrial fibrillation with rapid ventricular response I48.91 Influenza J11.1 Hypotension I95.9 Acute kidney injury superimposed on CKD N17.9; N18.9 Acute on chronic anemia D64.9 Nicotine dependence, cigarettes, with unspecified nicotine-induced disorders 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
[2025-01-15] MEDS: sodium chloride 0.9% 1,000 ML 75 ML IV (14:08)
[2025-01-15] MEDS: amiodarone 200 mg Tablet 400 MG PO (14:08)
[2025-01-15 15:07] LABS: Glucose Point of Care 228 mg/dL (70-110)
[2025-01-15] MEDS: enoxaparin 80 mg/0.8 mL Syringe 70 MG SUBCUT (16:57)
[2025-01-15 17:17] LABS: Calcium 8.6 mg/dL (8.5-10.5); Carbon Dioxide 34 mmol/L (22-29); Chloride 92 mmol/L (98-107); Creatinine Clr Calc Pharmacy 20.7523; Glucose 199 mg/dL (65-115); Osmolality Calculated 308 mOsm/kg (285-295); Sodium 134 mmol/L (136-145)
[2025-01-15 17:25] LABS: Glucose Point of Care 206 mg/dL (70-110)
[2025-01-15 17:25] LABS: Glucose Point of Care 196 mg/dL (70-110)
[2025-01-15 17:26] LABS: Anion Gap 12.1 (5-19); Potassium 4.1 mmol/L (3.5-5.1)
[2025-01-15 17:29] LABS: Blood Urea Nitrogen 81 mg/dL (8-23)
[2025-01-15] MEDS: atorvastatin 40 mg Tablet 80 MG PO (20:29)
[2025-01-15 21:11] LABS: Glucose Point of Care 168 mg/dL (70-110)
--- NOTE | 2025-01-15 22:45 | PC.NURSE ---
While walking back to bed from bathroom patient purposefully sat her self in the floor. She was assisted to ground by staff x2. (OB helping hands and 1:1 sitter) Patient stated, she was tired, so she just wanted to sit down . Patient did not receive any visible injuries, did not hit head. Patient was then assisted off of floor and back to recliner, placed on vital sign monitoring and telemetry. 1:1 sitter in room. Notified assistant warehouse manager.
[2025-01-15] MEDS: oxyCODONE 5 mg IR Tab/Cap 15 MG PO (23:21)
[2025-01-16] VITALS (18 sets, daily range): BP systolic 81–121; BP diastolic 48–95; PULSE 63–91; RESP 12–24; TEMP 36.4–36.6; O2SAT 86–94
[2025-01-16] MEDS: sodium chloride 0.9% 1,000 ML 75 ML IV ×2 (03:59→15:46)
[2025-01-16 04:01] LABS: Glucose Point of Care 138 mg/dL (70-110)
[2025-01-16 04:55] LABS: Basophils % 0.1 %; Eosinophils % 0.1 %; Hematocrit 40.4 % (36-47); Lymphocytes # 0.7 10^3/uL (0.8-4.8); Lymphocytes % 7.1 %; Mean Corpuscular HGB Conc 31.7 g/dL (30-55); Mean Corpuscular Hemoglobin 29.2 pg (27-33); Mean Platelet Volume 11.6 fL (7.4-10.4); Monocytes # 1.1 10^3/uL (0.2-0.9); Monocytes % 11.7 %; Neutrophils # 7.78 10^3/uL (1.8-7.7); Neutrophils % 80.3 %; Nucleated Red Blood Cells % 0 %; Platelet Count 235 10^3/cmm (157-399); Red Blood Count 4.39 10^6/uL (3.85-5.65); Red Cell Distribution Width 14.8 % (12.1-15.1); White Blood Count 9.69 10^3/uL (3.29-11.43)
[2025-01-16 05:14] LABS: C Reactive Protein 10.1 mg/L (0.0-4.9)
[2025-01-16 05:30] LABS: Anion Gap 15.1 (5-19); Blood Urea Nitrogen 76 mg/dL (8-23); Calcium 8.5 mg/dL (8.5-10.5); Carbon Dioxide 33 mmol/L (22-29); Chloride 97 mmol/L (98-107); Creatinine Clr Calc Pharmacy 20.7523; Glucose 117 mg/dL (65-115); NT Pro B Type Natriuretic Pept 10686 pg/mL (0-450); Osmolality Calculated 316 mOsm/kg (285-295); Potassium 4.1 mmol/L (3.5-5.1); Sodium 141 mmol/L (136-145)
[2025-01-16 06:32] LABS: Glucose Point of Care 79 mg/dL (70-110)
[2025-01-16] MEDS: ipratropium-albuterol 3 mL Neb INHALATION ×4 (07:54→21:07)
[2025-01-16] MEDS: budesonide 0.5 mg/2 mL Neb INHALATION ×2 (07:54→21:07)
--- NOTE | 2025-01-16 08:08 | PC.NURSE ---
Patient refused to have blood sugar checked at this time.
[2025-01-16] MEDS: nystatin 100,000 unit/mL UDC 5 mL 100000 UNIT PO ×4 (09:07→19:17)
[2025-01-16] MEDS: guaiFENesin 600 mg Tablet 1200 MG PO ×2 (09:08→17:14)
[2025-01-16] MEDS: dexamethasone 10 mg/mL INJ 2 MG PO (09:08)
[2025-01-16] MEDS: montelukast sodium 10 mg Tablet PO (09:08)
[2025-01-16] MEDS: aspirin 81 mg EC Tablet PO (09:08)
[2025-01-16] MEDS: famotidine 20 mg Tablet PO ×2 (09:08→17:14)
[2025-01-16] MEDS: magnesium oxide 400 mg tablet PO ×2 (09:08→17:14)
[2025-01-16] MEDS: metoprolol succinate ER (24 HR) 25 mg Tablet 50 MG PO (09:08)
[2025-01-16] MEDS: meropenem 500 mg SDV IVP (09:09)
--- NOTE | 2025-01-16 09:59 | PC.NURSE ---
Dr. Vega asked nursing staff to collect a urine sample and do orthostatic blood pressures on patient. orders entered.
[2025-01-16 10:59] LABS: Bilirubin Urine 1+ (Negative); Blood Urine 3+ (Negative); Glucose Urine UA Negative (Normal); Ketones Urine Trace (Negative); Leukocyte Esterase Urine 3+ (Negative); Nitrate Urine Negative (Negative); Protein Urine 2+ (Negative); Specific Gravity, Urine 1.022 (1.005-1.030); Urine Appearance Turbid (CLEAR)
[2025-01-16 11:06] LABS: Bacteria Urine 2+ /hpf; RBC Urine 15-25 /hpf (0-2); UA Manual Slide Review YES; Urine Color Orange (Yellow); WBC Urine 25-40 /hpf (0-5)
[2025-01-16 11:07] LABS: Add Urine Culture? Yes; Hyaline Casts Urine 15-25 /lpf
--- NOTE | 2025-01-16 11:11 | PC.NURSE ---
Patient refused to stand long enough for nursing to get standing orthostatic blood pressures. She stated I have done enough of this, I want you two to leave the room. Nursing updated provider.
--- NOTE | 2025-01-16 11:18 | PC.NURSE ---
Patient is refusing to wear telemetry and refusing her accuchecks.
--- NOTE | 2025-01-16 11:55 | PC.NURSE ---
Provider ordered to remove patients blackman catheter.
[2025-01-16 12:18] LABS: Glucose Point of Care 201 mg/dL (70-110)
--- NOTE | 2025-01-16 13:08 | CTR_ITS ---
PROCEDURE INFORMATION: Exam: CT Abdomen And Pelvis Without Contrast Exam date and time: 01/16/2025 2:02 PM Age: 84 years old Clinical indication: Other: Low blood pressures TECHNIQUE: Imaging protocol: Computed tomography of the abdomen and pelvis without contrast. Radiation optimization: All CT scans at this facility use at least one of these dose optimization techniques: automated exposure control; mA and/or kV adjustment per patient size (includes targeted exams where dose is matched to clinical indication); or iterative reconstruction. COMPARISON: CT abdomen pelvis wo con [id number] 01/05/2025 12:44 PM RADIATION DOSE METRICS: Total DLP (mGy-cm): 745.44 FINDINGS: Lungs: There is subsegmental atelectasis in the left lung. Heart: There is moderate cardiac enlargement. Liver: The liver is normal. Gallbladder and biliary ducts: The gallbladder is absent. There is ectasia of the common bile duct and central intrahepatic ducts. Pancreas: There is moderate atrophy of the pancreas. Spleen: The spleen is unremarkable. Adrenal glands: The adrenal glands are unremarkable. Kidneys and ureters: There is bilateral renal vascular calcification. No visible stones in the collecting systems. There is no hydronephrosis or ureteral dilation. No ureteral stones. Stomach and bowel: The stomach is unremarkable. The small bowel is nondilated. There is mild distal descending and sigmoid colonic diverticulosis without evidence of diverticulitis. Appendix: The appendix is normal. Intraperitoneal space: There is no free air or significant intraperitoneal free fluid. Vasculature: There is a fusiform 5.2 cm infrarenal abdominal aortic aneurysm and bifurcated aortoiliac endograft, similar to findings on 06/27/2022. Lymph nodes: There is no lymphadenopathy in the retroperitoneum, mesentery, pelvis or inguinal regions. Urinary bladder: There is trace gas in the anterior bladder wall. The urinary bladder is nondistended, limiting assessment of wall thickness. Reproductive: The uterus is absent. There is no adnexal mass or large cyst. Bones/joints: There is mild degenerative disease in the lumbar spine. Soft tissues: There are small bilateral fat containing inguinal hernias. CT/CT abdomen pelvis wo con [id number] IMPRESSION: 1. Trace gas in the bladder wall. Possible emphysematous cystitis. Correlate with urinalysis. 2. Incidental findings above.
--- NOTE | 2025-01-16 13:08 | CTR_ITS ---
PROCEDURE INFORMATION: Exam: CT Head Without Contrast Exam date and time: 01/16/2025 1:59 PM Age: 84 years old Clinical indication: Altered mental status/memory loss; Additional info: AMS TECHNIQUE: Imaging protocol: Computed tomography of the head without contrast. Radiation optimization: All CT scans at this facility use at least one of these dose optimization techniques: automated exposure control; mA and/or kV adjustment per patient size (includes targeted exams where dose is matched to clinical indication); or iterative reconstruction. COMPARISON: CT head wo con* [id number] 09/25/2024 2:09 PM RADIATION DOSE METRICS: Total DLP (mGy-cm): 1132.48 FINDINGS: Brain: Sequela of mild-moderate chronic microvascular ischemic changes with periventricular and deep white matter hypoattenuation. David-white differentiation is otherwise maintained. No evidence of intra-axial or extra-axial hemorrhage. No mass effect or midline shift. Basilar cisterns are patent. Cerebral ventricles: No hydrocephalus. Paranasal sinuses: The visualized paranasal sinuses are well aerated. Mastoid air cells: The visualized mastoids and middle ears are clear. Bones: Calvarium is intact. No evidence of acute fracture. Soft tissues: No gross soft tissue abnormality. Partially visualized right carotid stent. CT/CT head wo con* [id number] IMPRESSION: 1. No acute intracranial abnormality.
[2025-01-16] MEDS: amiodarone 200 mg Tablet 400 MG PO (13:13)
[2025-01-16 13:24] LABS: ABG PCO2 53.4 mmHg (35-45); ABG PH Result 7.39 (7.35-7.45); Arterial Blood Gas Hematocrit 40.9 % (37-47); Base Excess ABG 5.6 mmol/L (-2.0-2.0); Blood Gas Allen Test Pos; Blood Gas Operator Identificat MONRO; Blood Gas Sample Site Radial, left; Blood Gas Sample Type Arterial; Oxygen Device ROOM AIR; PO2 ABG 56.4 mmHg (80.0-100.0); PO2 FiO2 Ratio Arterial Blood 268
[2025-01-16 14:03] LABS: C Reactive Protein 10.2 mg/L (0.0-4.9)
[2025-01-16 14:04] LABS: Lactic Sepsis W/Reflex 1.4 mmol/L (0.5-2.2)
[2025-01-16 14:04] LABS: Ammonia 17 umol/L (11-51)
[2025-01-16 14:11] LABS: Procalcitonin 2.35 ng/mL (0-0.5)
[2025-01-16] MEDS: nicotine 14 mg Patch 1 PATCH TRANSDERMA (14:17)
[2025-01-16] MEDS: vancomycin 2,000 MG/400 ML PIGGYBACK 200 MG IV (14:17)
--- NOTE | 2025-01-16 15:06 | P.PN_ITS ---
Subjective 2 Subjective: - Patient was examined this morning -She is alert to person, to place, not t o time, but follows commands, she has had some odd behaviors yesterday, she needed a one-to-one sitter due to encephalopathy -This morning, she is had episode of con fusion -She really wants to go home -We removed her Matias catheter, she is r eceiving IV fluids -Blood pressures remain soft, although s he is not orthostatic, denies any lightheadedness, dizziness -Blood work shows lactic acid is 1.4, CR P is 10.2 however Pro-Ryne is 2.35, repeat UA shows evidence of UTI patient is on meropenem -I met with patient and her family patie nt is encephalopathy, likely secondary to UTI given how her UA looks, -He is on meropenem, meropenem can cause encephalopathy I will stop this switch her aztreonam and vancomycin -Will do CT of her head, CT abdomen -She is flustered about being here in [facility] but understands this son at bedside tells me that she is quite confused, she is not her usual self Vitals/I&O/Wt Last Vital Signs Temp 97.6 F 01/16/25 12:00 Pulse 66 01/16/25 15:02 Resp 20 H 01/16/25 15:02 BP 121/48 01/16/25 12:00 Pulse Ox 92 01/16/25 15:02 O2 Del Method Nasal Cannula 01/16/25 15:02 O2 Flow Rate 3 01/16/25 15:02 FiO2 30 01/12/25 08:00 01/16/25 01/16/25 01/16/25 06:59 14:59 22:59 Intake Total 1000 / 1355 Output Total 325 / 1175 150 / 150 Balance 675 / 180 -150 / -150 Weight last 48 hrs Weight 72.938 kg Physical Exam 2 Const: COMMON NORMALS: no acute distress ORIENTATION/CONSCIOUSNESS: Yes awake, Yes oriented to person, Yes oriented to place and Yes confused; not oriented to time Resp: COMMON NORMALS: normal respiratory effort, No retractions, No use of accessory muscles and clear to auscultation bilaterally AUSCULTATION: clear to auscultation bilaterally Cardio: COMMON NORMALS: regular rate, regular rhythm, S1 normal heart sound present and S2 normal heart sound present RATE: regular rate RHYTHM: r egular rhythm HEART SOUNDS: S1 normal heart sound present and S2 normal heart sound present GI: COMMON NORMALS: Normal to inspection, nondistended, normoactive bowel sounds present and non-tender Extremity: COMMON NORMALS: no pedal edema Neuro: SENSORIUM/ORIENTATION: Yes oriented to person, Yes oriented to place and No oriented to time OTHER: No focal neurologic deficits, no slurring of her words, no facial droop, she has good strength upper and lower extremities equal bilaterally Psych: COMMON NORMALS: mental status grossly normal Urinary Catheter Management: Matias: Cath Placed During This Visit: yes Reason for Continuing Indwelling Catheter: Other Urinary Catheter Date of Insertion: 01/10/25 Urinary Catheter Time of Insertion: 15:08 Data 01/16/25 04:38 01/16/25 04:38 Micro: Microbiology 01/16/25 13:31 Blood Culture - Preliminary Blood SPECIMEN COLLECTED 01/16/25 13:32 Blood Culture - Preliminary Blood SPECIMEN COLLECTED A&P Assessment and plan (1) Acute and chronic respiratory failure ([id number]): -Multifactorial -From influenza -From aspiration pneumonia -From fluid overload, systolic CHF exacerbation, BNP over 45,000 -COPD exacerbation -A-fib with RVR CONCLUSIONS Moderately increased left ventricular cavity size. Severely decreased left ventricular systolic function. Left ventricular ejection fraction is estimated at 30 %. Global left ventricular hypokinesis. Moderately increased left atrial size. Moderately thickened mitral valve. Mild mitral annular calcification. No mitral valve stenosis. Moderate-severe mitral valve regurgitation. Moderate aortic valve calcification. No aortic valve stenosis. Trace aortic valve regurgitation. Mild tricuspid valve regurgitation. There is no pericardial effusion. Plan - moved to cardiac stepdown unit -As needed BiPAP during the day -Creatinine up to 2.2 hold Lasix -Completed Tamiflu -De-escalate antibiotics to Augmentin -Monitor respiratory status -DuoNeb as needed -De-escalate to Decadron 2 mg daily burst (2) Atrial fibrillation with rapid ventricular response: Transition of amiodarone drip to p.o. 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 Severely decreased left ventricular systolic function. Left ventricular ejection fraction is estimated at 30 %. Global left ventricular hypokinesis. Moderately increased left atrial size. Moderately thickened mitral valve. Mild mitral annular calcification. No mitral valve stenosis. Moderate-severe mitral valve regurgitation. Moderate aortic valve calcification. No aortic valve stenosis. Trace aortic valve regurgitation. Mild tricuspid valve regurgitation. There is no pericardial effusion. Stress test in April 2021 IMPRESSIONS 1. Abnormal myocardial perfusion imaging with small infarct noted in the apical inferior wall. No evidence of ischemia 2. LV systolic function is normal with EF of 59% -Aspirin, statin, therapeutic Lovenox -Will need repeat stress testing and/or coronary angiography and cardiology evaluation at some point, once her respiratory status is improved (11) Aspiration pneumonia: (12) Sepsis: - Second aspiration pneumonia, influenza Qualifiers: Acute renal failure type: unspecified Sepsis acute organ dysfunction status: with acute organ dysfunction Sepsis type: sepsis due to unspecified organism Severe sepsis acute organ dysfunction type: acute renal failure S evere sepsis shock status: without septic shock Qualified Code(s): A41.9 - Sepsis, unspecified organism; R65.20 - Severe sepsis without septic shock; N17.9 - Acute kidney failure, unspecified Plan -Acute encephalopathy this morning -She follows commands, however has episodes of confusion, no focal weakness, no slurring of her words, no headache, no blurry vision she is adamant about going home Plan -CT head ordered -CT abdomen pelvis -UA with evidence of cm UTI stop meropenem due to concerns for confusion associate with meropenem switched to aztreonam, added vancomycin -Pro-Ryne is 2.35, CRP 10.2 -Lactic acid within normal limits -Ammonia levels within normal limits -Continue IV fluids - Hypokalemia, replace potassium -Uremia, improving -Hypoglycemia status post D10 bolus twice, D10 drip, glucagon, octreotide, resolved -Has a history of glipizide use, has not used any since she has been here in the hospital, possibly lingering in her system with her acute renal failure -Resume subcu insulin Plan for today, monitor acute encephalopathy, broaden antibiotic coverage, continue IV fluids, PDMP PDMP Reviewed: Not Reviewed Attestations 2 Medical Necessity Statement*: Patient requires hospitalization for acute encephalopathy, UTI Diagnoses Acute and chronic respiratory failure ([id number]) J96.20 Atrial fibrillation with rapid ventricular response I48.91 Influenza J11.1 Hypotension I95.9 Acute kidney injury superimposed on CKD N17.9; N18.9 Acute on chronic anemia D64.9 Nicotine dependence, cigarettes, with unspecified nicotine-induced disorders 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
[2025-01-16] MEDS: enoxaparin 80 mg/0.8 mL Syringe 70 MG SUBCUT (17:14)
[2025-01-16] MEDS: aztreonam 1,000 MG in sodium chloride 0.9% (plus) 50 ML 100 MG IV (17:15)
--- NOTE | 2025-01-16 17:56 | PC.NURSE ---
Provider is updated of patient's blood sugar of 326. Provider took humalog off hold.
[2025-01-16] MEDS: insulin lispro 100 unit/1 mL SUBCUT ×2 (18:00→21:26)
[2025-01-16 18:49] LABS: Glucose Point of Care 326 mg/dL (70-110)
[2025-01-16] MEDS: atorvastatin 40 mg Tablet 80 MG PO (19:16)
[2025-01-16] MEDS: oxyCODONE 5 mg IR Tab/Cap 15 MG PO (19:16)
[2025-01-16] MEDS: BuSPIRONE 10 mg Tablet 5 MG PO (19:17)
--- NOTE | 2025-01-16 19:39 | PC.NURSE ---
Patient was found in the floor. Appears her legs gave out and she sat on the floor. No injury observed. Patient denies pain or injury. Daughter was at bedside and said she was trying to leave. Patient stated i was just going to the bathroom. Assisted patient up from floor x3 assist with gait belt. Patient tolerated well. Informed Dr Lambert and clearing house clerk. Patient currently up to recliner. Patient wanting a milk shake which was provided to her. Daughter remains at bedside.
[2025-01-16 21:02] LABS: Glucose Point of Care 331 mg/dL (70-110)
[2025-01-16] MEDS: LORazepam 2 mg/mL INJ 1 mL 0.5 MG IVP (23:16)
--- NOTE | 2025-01-16 23:38 | PC.NURSE ---
Patient is very anxious, wanting to go home. Daughter is at bedside. Informed Dr Lambert and received onetime order for Ativan 0.5mg IVP which was given as documented. Patient resting at this time.
[2025-01-17] VITALS (8 sets, daily range): BP systolic 96–118; BP diastolic 54–63; PULSE 64–89; RESP 14–20; TEMP 36.2–36.4; O2SAT 90–100
[2025-01-17] MEDS: aztreonam 1,000 MG in sodium chloride 0.9% (plus) 50 ML 100 MG IV ×2 (04:25→15:56)
[2025-01-17] MEDS: sodium chloride 0.9% 1,000 ML 75 ML IV (04:26)
[2025-01-17] MEDS: ipratropium-albuterol 3 mL Neb INHALATION (08:31)
[2025-01-17] MEDS: dexamethasone 10 mg/mL INJ 2 MG PO (08:32)
[2025-01-17] MEDS: budesonide 0.5 mg/2 mL Neb INHALATION (08:32)
--- NOTE | 2025-01-17 09:30 | PC.NURSE ---
Provider is updated that patient is still confused and refusing her morning medications. Nursing has tried 3 times to have her take them with no success. She did refuse her morning blood draw also.
--- NOTE | 2025-01-17 09:53 | US_ITS ---
WS: [id number] ULTRASOUND BLADDER CLINICAL INFORMATION: emphysematous cystitis COMPARISON: CT 01/16/2025 FINDINGS: Technically difficult study Urinary bladder: The urinary bladder is morphologically normal. No free fluid is seen in the pelvis. Mild bladder wall thickening measuring 9 to 10 mm. Bladder is partially contracted. US/ bladder [id number] IMPRESSION: Technically difficult study. Mild bladder wall thickening. Bladder otherwise appears normal
[2025-01-17] MEDS: LORazepam 2 mg/mL INJ 1 mL 0.5 MG IVP ×3 (10:21→20:53)
[2025-01-17] MEDS: micafungin 100 MG in sodium chloride 0.9% (plus) 100 ML IV (10:21)
[2025-01-17 10:30] LABS: Glucose Point of Care 106 mg/dL (70-110)
--- NOTE | 2025-01-17 10:34 | PC.NURSE ---
Nursing has tried again to get patient to take her morning medications. Provider updated.
--- NOTE | 2025-01-17 11:31 | PC.NURSE ---
Patient has been refusing to wear her telemetry today. She is telling everyone to leave her alone. Nursing and FRANCHISE SPECIALIST have tried to put them back on her multiple times and she pulls them off as fast as we can put them on.
[2025-01-17 11:50] LABS: Basophils % 0.1 %; Eosinophils % 0.1 %; Hematocrit 35.9 % (36-47); Lymphocytes # 0.3 10^3/uL (0.8-4.8); Lymphocytes % 2.9 %; Mean Corpuscular HGB Conc 32.9 g/dL (30-55); Mean Corpuscular Hemoglobin 29.9 pg (27-33); Mean Corpuscular Volume 90.9 fl (85-98); Mean Platelet Volume 12.3 fL (7.4-10.4); Monocytes # 0.7 10^3/uL (0.2-0.9); Monocytes % 5.9 %; Neutrophils # 10.72 10^3/uL (1.8-7.7); Neutrophils % 90.5 %; Nucleated Red Blood Cells % 0 %; Platelet Count 181 10^3/cmm (157-399); Red Blood Count 3.95 10^6/uL (3.85-5.65); Red Cell Distribution Width 14.9 % (12.1-15.1); White Blood Count 11.84 10^3/uL (3.29-11.43)
[2025-01-17 12:18] LABS: Glucose Point of Care 160 mg/dL (70-110)
--- NOTE | 2025-01-17 12:25 | PC.SOCIAL ---
IMM Updated Provided pt a copy. No questions voiced. Initialed, dated, & timed copy in chart.
[2025-01-17 12:29] LABS: Slide Review Slide Review Perform
--- NOTE | 2025-01-17 13:40 | PC.NURSE ---
Nursing tried to wake patient enough to take her 1300 medications. She responds to touch but will not take her medications at this time. Nursing will try again when patient is more awake, patient was given Ativan at 1021.
--- NOTE | 2025-01-17 15:22 | P.PN_ITS ---
Subjective 2 Subjective: Patient was examined this morning, patient's daughter is at bedside she is alert to person, somewhat to place, not to time, she recognizes me as her doctor, she is sitting up on the commode, she can follow commands, she is able to smile for me she is able to move bilateral upper lower extremities no focal weakness no slurring of her words, she denies any nausea, no vomiting no back pain, but continues to have episodes of encephalopathy and confusion Vitals/I&O/Wt Last Vital Signs Temp 97.4 F L 01/17/25 11:41 Pulse 78 01/17/25 11:41 Resp 18 01/17/25 11:41 BP 97/62 01/17/25 11:41 Pulse Ox 97 01/17/25 11:41 O2 Del Method Room Air 01/17/25 11:41 O2 Flow Rate 3 01/16/25 16:00 FiO2 30 01/12/25 08:00 01/17/25 01/17/25 01/17/25 06:59 14:59 22:59 Intake Total 1050 / 4743.75 100 / 100 Output Total 100 / 100 Balance 1050 / 4593.75 0 / 0 Physical Exam 2 Const: COMMON NORMALS: no acute distress OTHER: Alert to person, somewhat place, not to time, she recognizes me she can follow commands, no facial droop, no slurring words, she can foreign banknote teller my hands bilaterally as she has equal strength she is able to get up from the commode Resp: COMMON NORMALS: normal respiratory effort, No retractions, No use of accessory muscles and clear to auscultation bilaterally AUSCULTATION: clear to auscultation bilaterally Cardio: COMMON NORMALS: regular rate, regular rhythm, S1 normal heart sound present and S2 normal heart sound present RATE: regular rate RHYTHM: r egular rhythm HEART SOUNDS: S1 normal heart sound present and S2 normal heart sound present GI: COMMON NORMALS: Normal to inspection, nondistended, normoactive bowel sounds present and non-tender Extremity: COMMON NORMALS: capillary refill normal and no pedal edema Urinary Catheter Management: Matias: Cath Placed During This Visit: yes, but has since been removed by the nurse Reason for Continuing Indwelling Catheter: Accurate Measurement of Urinary Output in Critically Ill Patients Urinary Catheter Date of Insertion: 01/10/25 Urinary Catheter Time of Insertion: 15:08 Date Urinary Catheter Removed: 02/23/25 Time Urinary Catheter Discontinued: 12:30 Data 01/17/25 11:30 01/16/25 04:38 Micro: Microbiology 01/16/25 13:31 Blood Culture - Preliminary Blood NEGATIVE TO DATE 01/16/25 13:32 Blood Culture - Preliminary Blood NEGATIVE TO DATE 01/16/25 10:49 Urine Culture - Preliminary Urine,Clean Catch A&P Assessment and plan (1) Acute and chronic respiratory failure ([id number]): -Resolved -Multifactorial -From influenza -From aspiration pneumonia -From fluid overload, systolic CHF exacerbation, BNP over 45,000 -COPD exacerbation -A-fib with RVR CONCLUSIONS Moderately increased left ventricular cavity size. Severely decreased left ventricular systolic function. Left ventricular ejection fraction is estimated at 30 %. Global left ventricular hypokinesis. Moderately increased left atrial size. Moderately thickened mitral valve. Mild mitral annular calcification. No mitral valve stenosis. Moderate-severe mitral valve regurgitation. Moderate aortic valve calcification. No aortic valve stenosis. Trace aortic valve regurgitation. Mild tricuspid valve regurgitation. There is no pericardial effusion. Plan - moved to cardiac stepdown unit -Currently on nasal cannula -Creatinine up to 2.2 hold Lasix -Completed Tamiflu -Completed p.o. antibiotics -Monitor respiratory status -DuoNeb as needed -De-escalate to Decadron 2 mg daily burst (2) Atrial fibrillation with rapid ventricular response: Transition of amiodarone drip to p.o. amiodarone Switch to Eliquis (3) Influenza: Tamiflu 30 mg daily, completed (4) Hypotension: Monitor (5) Acute kidney injury superimposed on CKD: Creatinine 2.2, on fluids -Monitor urine output, monitor creatinine (6) Acute on chronic anemia: Hemoglobin stable (7) Nicotine dependence, cigarettes, with unspecified nicotine-induced disorders: (8) Diabetes 1.5, managed as type 2: Insulin sliding scale (9) Acute encephalopathy: As below (10) Acute CHF: CONCLUSIONS Moderately increased left ventricular cavity size. Severely decreased left ventricular systolic function. Left ventricular ejection fraction is estimated at 30 %. Global left ventricular hypokinesis. Moderately increased left atrial size. Moderately thickened mitral valve. Mild mitral annular calcification. No mitral valve stenosis. Moderate-severe mitral valve regurgitation. Moderate aortic valve calcification. No aortic valve stenosis. Trace aortic valve regurgitation. Mild tricuspid valve regurgitation. There is no pericardial effusion. Stress test in April 2021 IMPRESSIONS 1. Abnormal myocardial perfusion imaging with small infarct noted in the apical inferior wall. No evidence of ischemia 2. LV systolic function is normal with EF of 59% -Aspirin, statin, Eliquis -Will need repeat stress testing and/or coronary angiography and cardiology evaluation at some point, once her respiratory status is improved (11) Aspiration pneumonia: - Resolved (12) Sepsis: - Resolved Qualifiers: Acute renal failure type: unspecified Sepsis acute organ dysfunction status: with acute organ dysfunction Sepsis type: sepsis due to unspecified organism Severe sepsis acute organ dysfunction type: acute renal failure S evere sepsis shock status: without septic shock Qualified Code(s): A41.9 - Sepsis, unspecified organism; R65.20 - Severe sepsis without septic shock; N17.9 - Acute kidney failure, unspecified (13) UTI (urinary tract infection): - As below Plan -Acute encephalopathy for the last 48 hours -She follows commands, however has episodes of confusion, no focal weakness, no slurring of her words, no headache, no blurry vision she is adamant about going home -Likely secondary to urinary tract infection, concern for emphysematous cystitis Plan -CT head no acute findings -CT abdomen pelvis shows trace gas in the bladder wall, possible emphysematous cystitis -UA with evidence of cm UTI stop meropenem due to concerns for confusion associate with meropenem switched to aztreonam, added vancomycin -Added micafungin for concerns for fungal infection -Pro-Ryne is 2.35, CRP 10.2 -Lactic acid within normal limits -Ammonia levels within normal limits -Will hold off on IV fluids Does have episodes of hypotension, monitor closely - Hypokalemia, replace potassium -Uremia, improving -Hypoglycemia resolved Plan for today, monitor acute encephalopathy, continue IV vancomycin, aztreonam added micafungin monitor mentation closely follow blood cultures, urine culture, follow CBC, BMP, switch to Eliquis PDMP PDMP Reviewed: Not Reviewed Attestations 2 Medical Necessity Statement*: Patient requires hospitalization for acute encephalopathy, with concerns for UTI, requiring IV antibiotics, acute encephalopathy Diagnoses Acute and chronic respiratory failure ([id number]) J96.20 Atrial fibrillation with rapid ventricular response I48.91 Influenza J11.1 Hypotension I95.9 Acute kidney injury superimposed on CKD N17.9; N18.9 Acute on chronic anemia D64.9 Nicotine dependence, cigarettes, with unspecified nicotine-induced disorders 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
--- NOTE | 2025-01-17 15:32 | PC.NURSE ---
Patient's family member in the room hit the call light, when nurse entered the room patient had taken her gown off was trying to stand and pulling at her IV. Nursing did call for additional help. Nurse tried to redirect patient multiple times to stay in bed and not pull at her IV line. Nursing did end up giving her another dose of Ativan to calm her down. She refusing to take PO medications, labs, and telemetry.
[2025-01-17] MEDS: nicotine 14 mg Patch 1 PATCH TRANSDERMA (15:46)
[2025-01-17] MEDS: haloperidol inj 5 mg/mL INJ 1 mL 1 MG IM ×2 (16:39→22:59)
[2025-01-17 16:40] LABS: Glucose Point of Care 197 mg/dL (70-110)
[2025-01-17] MEDS: albumin 50 G/200 ML BAG 60 G IV (16:48)
--- NOTE | 2025-01-17 17:16 | PC.NURSE ---
Addendum entered by Patt Chung RN 01/17/25 18:17: Provider is called with an update that patient has calmed down and is now in bed and sleeping. Provider is order if need nursing can give another dose of haldol. Original Note: Provider updated on patients behaviors and he ordered ativan 1mg and to call him 10mins after giving with update.
[2025-01-17] MEDS: LORazepam 2 mg/mL INJ 1 mL 1 MG IVP (17:18)
--- NOTE | 2025-01-17 17:19 | PC.OT ---
OT tx attempted 2x today. At approximately 1030 pt had received Ativan and nursing requested therapies to hold until after pt had opportunity to rest. PIRES attempted again at 1720 and pt was agitated and receiving additional Ativan. Nursing requests to hold OT services today. Tx to be attempted again in a.m.
[2025-01-17 17:28] LABS: Vancomycin Trough 23.5 ug/mL (10-15)
[2025-01-17 17:39] LABS: NT Pro B Type Natriuretic Pept 8286 pg/mL (0-450); Procalcitonin 1.58 ng/mL (0-0.5)
[2025-01-17 17:50] LABS: Alanine Aminotransferase 30 U/L (0-33); Albumin Level 3.3 g/dL (3.5-5.2); Alkaline Phosphatase 121 U/L (35-105); Blood Urea Nitrogen 79 mg/dL (8-23); C Reactive Protein 7.8 mg/L (0.0-4.9); Calcium 8.3 mg/dL (8.5-10.5); Carbon Dioxide 24 mmol/L (22-29); Chloride 102 mmol/L (98-107); Creatinine Clr Calc Pharmacy 19.7641; Globulin 2.4 g/dL (1.3-4.6); Glucose 193 mg/dL (65-115); Osmolality Calculated 321 mOsm/kg (285-295); Sodium 141 mmol/L (136-145); Total Bilirubin 1.5 mg/dL (0.15-1.2); Total Protein 5.7 g/dL (6.6-8.7)
[2025-01-17 17:55] LABS: Anion Gap 19.5 (5-19); Aspartate Amino Transferase 34 U/L (0-32); Potassium 4.5 mmol/L (3.5-5.1)
[2025-01-17 20:50] LABS: Glucose Point of Care 239 mg/dL (70-110)
[2025-01-17] MEDS: insulin lispro 100 unit/1 mL SUBCUT (20:53)
[2025-01-18] VITALS (40 sets, daily range): BP systolic 92–126; BP diastolic 42–77; PULSE 61–93; RESP 0–21; TEMP 35.8–36.6; O2SAT 88–100
[2025-01-18] MEDS: LORazepam 2 mg/mL INJ 1 mL 0.5 MG IVP ×3 (00:07→12:47)
[2025-01-18 03:39] LABS: Lymphocytes # 0.6 10^3/uL (0.8-4.8); Lymphocytes % 4.8 %; Mean Corpuscular HGB Conc 31.3 g/dL (30-55); Mean Corpuscular Hemoglobin 29.1 pg (27-33); Mean Corpuscular Volume 92.9 fl (85-98); Mean Platelet Volume 11.7 fL (7.4-10.4); Monocytes # 1.3 10^3/uL (0.2-0.9); Monocytes % 11.3 %; Neutrophils # 9.81 10^3/uL (1.8-7.7); Neutrophils % 83.4 %; Nucleated Red Blood Cells % 0 %; Platelet Count 181 10^3/cmm (157-399); Red Blood Count 3.23 10^6/uL (3.85-5.65); Red Cell Distribution Width 14.9 % (12.1-15.1); White Blood Count 11.77 10^3/uL (3.29-11.43)
[2025-01-18 04:01] LABS: Vancomycin Random 21.1 ug/mL (20.0-40.0)
[2025-01-18 04:10] LABS: Anion Gap 17.1 (5-19); Calcium 8.6 mg/dL (8.5-10.5); Carbon Dioxide 27 mmol/L (22-29); Chloride 104 mmol/L (98-107); Creatinine Clr Calc Pharmacy 18.8657; Glucose 98 mg/dL (65-115); NT Pro B Type Natriuretic Pept 11324 pg/mL (0-450); Osmolality Calculated 323 mOsm/kg (285-295); Potassium 4.1 mmol/L (3.5-5.1); Sodium 144 mmol/L (136-145)
[2025-01-18 04:25] LABS: Blood Urea Nitrogen 84 mg/dL (8-23)
[2025-01-18] MEDS: aztreonam 1,000 MG in sodium chloride 0.9% (plus) 50 ML 100 MG IV ×2 (04:30→17:08)
--- NOTE | 2025-01-18 05:29 | PC.NURSE ---
Patient blood pressure was not taken due to patient refusing and having behaviors nurse notified
[2025-01-18 06:24] LABS: Glucose Point of Care 82 mg/dL (70-110)
[2025-01-18] MEDS: sodium chloride 0.9% 1,000 ML 50 ML IV (08:30)
[2025-01-18] MEDS: budesonide 0.5 mg/2 mL Neb INHALATION ×2 (08:56→20:10)
[2025-01-18] MEDS: ipratropium-albuterol 3 mL Neb INHALATION ×4 (08:56→20:09)
[2025-01-18 09:31] LABS: ABG PCO2 44.6 mmHg (35-45); ABG PH Result 7.41 (7.35-7.45); Arterial Blood Gas Hematocrit 30.4 % (37-47); Base Excess ABG 3.2 mmol/L (-2.0-2.0); Blood Gas Allen Test Pos; Blood Gas Operator Identificat 0; Blood Gas Sample Site Radial, right; Blood Gas Sample Type Arterial; HCO3 ABG 28.2 mmol/L (22-26); PO2 ABG 54.1 mmHg (80.0-100.0)
--- NOTE | 2025-01-18 10:39 | PC.NURSE ---
Patient arrived to ICU at 1033.
--- NOTE | 2025-01-18 10:52 | PC.NURSE ---
Transferred patient to ICU at 1015. Report given to YOVANI Elias.
[2025-01-18] MEDS: micafungin 100 MG in sodium chloride 0.9% (plus) 100 ML IV (11:27)
[2025-01-18 11:54] LABS: Glucose Point of Care 82 mg/dL (70-110)
[2025-01-18] MEDS: dexmedeTOMIDine 0.9 % NaCL 400 MCG/100 ML PREMIX IV (13:05)
--- NOTE | 2025-01-18 14:46 | PC.NURSE ---
Son in law Akil Carmine took the patient's wallet and phone back to the patients's house.
[2025-01-18] MEDS: sodium chloride 0.9% 250 ML IV (15:04)
[2025-01-18] MEDS: OLANZapine 10 mg VIAL 5 MG IM (15:05)
--- NOTE | 2025-01-18 15:29 | PC.NURSE ---
Patient unable to follow commands and is easily aggravated. Patient pulls at lines and is combative at times. Dr. Vega ordered for 5 mg of Zyprexa IM to be given.
--- NOTE | 2025-01-18 15:33 | CTR_ITS ---
PROCEDURE INFORMATION: Exam: CT Head Without Contrast Exam date and time: 01/18/2025 4:02 PM Age: 84 years old Clinical indication: Altered mental status/memory loss; Additional info: AMS TECHNIQUE: Imaging protocol: Computed tomography of the head without contrast. Radiation optimization: All CT scans at this facility use at least one of these dose optimization techniques: automated exposure control; mA and/or kV adjustment per patient size (includes targeted exams where dose is matched to clinical indication); or iterative reconstruction. COMPARISON: CT head wo con* [id number] 01/16/2025 1:59 PM RADIATION DOSE METRICS: Total DLP (mGy-cm): 1191.79 FINDINGS: Brain: No hemorrhage. Diffuse periventricular white matter disease indicating small vessel disease changes. No mass effect. No collections. Age related volume loss. Cerebral ventricles: There is ventriculomegaly associated with age related volume loss. Paranasal sinuses: No significant air-fluid levels noted in the visualized sinuses. Mastoid air cells: Mastoid air cells are aerated with no effusions. Bones: No acute osseous abnormality. Soft tissues: Unremarkable. CT/CT head wo con* [id number] IMPRESSION: No acute intracranial abnormality.
[2025-01-18 16:09] LABS: Ammonia 12 umol/L (11-51); Lactate (Lactic Acid level) 1.1 mmol/L (0.5-2.2)
--- NOTE | 2025-01-18 16:29 | PC.OT ---
Pt was transferred to ICU earlier today due to change in status. OT tx to be held today and OTR to reassess current tx plan tomorrow for appropriateness.
[2025-01-18] MEDS: nicotine 14 mg Patch 1 PATCH TRANSDERMA (16:43)
[2025-01-18 16:51] LABS: Glucose Point of Care 81 mg/dL (70-110)
--- NOTE | 2025-01-18 18:04 | PM.CONSULT ---
Providers/Reason For Consult Consulting Physician/Specialty*: [facility]a/Nephrology Reason for Consult*: Acute on ckd Attending Physician: Gurmeet Vega MD Primary Care Provider: Kofi Lopez MD History of Present Illness History of Present Illness Paloma Slater is a 84 year old female Patient is 84-year-old female with past medical history significant for A-fib, COPD chronic kidney disease chronic anemia, CHF, hypertension and diabetes admitted to the hospital on 01/05/2025 due to progressively worsening shortness of breath. Patient was initially hypotensive with a systolic blood pressures in the 80s.. Blood pressures have improved now. Patient was treated for COPD exacerbation and CHF exacerbation received IV diuretics. Ejection fraction was 30%. Patient also tested positive for influenza. She was on amiodarone drip for rapid A-fib. Baseline creatinine was mid 1 range that has gotten worse to 2.2 today along with uremia with a BUN of 84. Patient mental status has not improved during the hospital stay. Review of Systems Narrative: Unable to obtain full review of systems assessment Medications/Allergies Home Medications ?Medication ?Instructions ?Recorded ?Confirmed ?Last Taken ?Type flash glucose scanning reader #1 ea 03/04/22 01/05/25 Unknown Rx (FreeStyle [place] 14 Day [place]) flash glucose sensor (FreeStyle #2 ea 03/04/22 01/05/25 Unknown Rx Odell 14 Day Sensor kit) blood-glucose meter #1 ea 03/06/22 01/05/25 Unknown Rx pen needle, diabetic 32 gauge x #100 ea 04/12/22 01/05/25 Unknown Rx 5/32 (TechLITE Pen Needle) overnight oximetry #1 ea 12/17/22 01/05/25 Unknown Rx breast prosthesis bilateral and #1 ea 02/05/23 01/05/25 Unknown Rx bras x4 diphenhydramine HCl 25 mg capsule 25 mg PO BEDTIME PRN Allergy 02/19/23 01/05/25 Unknown History (Benadryl) Symptoms home oxygen 2l/m continuous #1 ea 06/04/23 01/05/25 Unknown Rx CPAP set to 6-16 with supplies #1 ea 09/15/23 01/05/25 Unknown Rx RSV - pre f3 #1 ea 10/09/23 01/05/25 Unknown Rx blood sugar diagnostic (Blood #120 ea 10/31/23 01/05/25 Unknown Rx Glucose Test strips) atorvastatin 80 mg tablet 80 mg PO BEDTIME #90 tabs 01/05/24 01/05/25 01/04/25 Rx amiodarone 200 mg tablet 200 mg PO QAM 02/06/24 01/05/25 01/04/25 History buspirone 5 mg tablet 5 mg PO BEDTIME PRN Anxiety 02/06/24 01/05/25 Unknown History multivitamin 1 tab PO DAILY 02/06/24 01/05/25 01/04/25 History Inogen portable oxygen device and #1 ea 02/19/24 01/05/25 Unknown Rx supplies budesonide 160 mcg-glycopyr 9 2 inh inhalation BID #10.7 grams 02/19/24 01/05/25 01/04/25 Rx mcg-formot 4.8 mcg/actuation HFA inhaler (Breztri IPPLEXphere) carvedilol 6.25 mg tablet 6.25 mg PO BID 07/14/24 01/05/25 01/04/25 History glipizide 5 mg tablet 5 mg PO DAILY 07/14/24 01/05/25 01/04/25 History loratadine 10 mg tablet 10 mg PO DAILY 07/14/24 01/05/25 01/04/25 History famotidine 20 mg tablet 20 mg PO BID #180 tabs 09/23/24 01/05/25 01/04/25 Rx apixaban 5 mg tablet (Eliquis) 5 mg PO Q12H #180 tabs 10/13/24 01/05/25 01/04/25 Rx lisinopril 2.5 mg tablet 2.5 mg PO DAILY #90 tabs 10/20/24 01/05/25 01/04/25 Rx montelukast 10 mg tablet 10 mg PO DAILY #90 tabs 10/20/24 01/05/25 01/04/25 Rx mupirocin 2 % topical ointment 1 applic topical BID PRN Skin 11/04/24 01/05/25 Unknown History Irritation torsemide 20 mg tablet 20 - 40 mg (1 - 2 x 20 mg) PO QAM 12/01/24 01/05/25 01/04/25 Rx #120 tabs metolazone 5 mg tablet 5 mg PO DAILY #30 tabs 12/14/24 01/05/25 01/04/25 Rx potassium chloride 10 mEq 10 meq PO DAILY #90 tabs 12/16/24 01/05/25 01/04/25 Rx tablet,extended release linezolid 600 mg tablet (Zyvox) 600 mg PO BID 6 days #12 tabs 12/25/24 01/05/25 01/04/25 Rx oxycodone 15 mg tablet 15 mg PO Q6H PRN pain 30 days #120 12/31/24 01/05/25 01/04/25 Rx tabs insulin glargine 100 unit/mL (3 14 unit SUBCUT QAM 01/05/25 01/05/25 01/04/25 History mL) subcutaneous pen (Lantus Solostar U-100 Insulin) Allergies Allergy/AdvReac Type Severity Reaction Status Date / Time adhesive tape Allergy Unknown Unknown Verified 12/26/24 14:55 bacitracin (From Neosporin Allergy Unknown Unknown Verified 12/26/24 14:55 ([id number])) codeine Allergy Unknown Unknown Verified 12/26/24 14:55 doxycycline Allergy Unknown Unknown Verified 12/26/24 14:55 neomycin (From Neosporin Allergy Unknown Unknown Verified 12/26/24 14:55 ([id number])) penicillamine Allergy Unknown Unknown Verified 12/26/24 14:55 Penicillins Allergy Unknown Unknown Verified 12/26/24 14:55 polymyxin B (From Neosporin Allergy Unknown Unknown Verified 12/26/24 14:55 ([id number])) prochlorperazine (From Allergy Unknown Unknown Verified 12/26/24 14:55 Compazine) Sulfa (Sulfonamide Allergy Unknown Unknown Verified 12/26/24 14:55 Antibiotics) diltiazem Allergy ALGY-Difficulty Verified 12/26/24 14:55 Breathing Current Medications Generic Name Dose Route Start Last Admin Trade Name Freq PRN Reason Stop Dose Admin Acetaminophen 650 mg 01/05/25 18:20 01/14/25 03:22 Acetaminophen 325 Mg Tablet PO 650 mg Q6H PRN Administration Mild/Mod Pain Or Temp >/= 101 Albuterol/Ipratropium 3 ml 01/05/25 20:00 01/18/25 15:20 Ipratropium-Albuterol 3 Ml Neb INHALATION 3 ml QID.RESPIRATORY MICHELE Administration Amiodarone HCl 400 mg 01/11/25 13:00 01/18/25 13:02 Amiodarone 200 Mg Tablet PO Not Given Q12H MICHELE Apixaban 2.5 mg 01/17/25 21:00 01/18/25 10:45 Apixaban 5 Mg Tablet PO Not Given BID@0900,2100 MICHELE Aspirin 81 mg 01/13/25 11:25 01/18/25 10:46 Aspirin 81 Mg Ec Tablet PO Not Given DAILY MICHELE Atorvastatin Calcium 80 mg 01/05/25 21:00 01/17/25 20:53 Atorvastatin 40 Mg Tablet PO Not Given BEDTIME MICHELE Bisacodyl 10 mg 01/13/25 16:05 01/18/25 10:47 Bisacodyl 5 Mg Tablet PO Not Given DAILY MICHELE Budesonide 0.5 mg 01/05/25 20:00 01/18/25 08:56 Budesonide 0.5 Mg/2 Ml Neb INHALATION 0.5 mg BID.RESPIRATORY MICHELE Administration Buspirone HCl 5 mg 01/05/25 18:39 01/16/25 19:17 Buspirone 10 Mg Tablet PO 5 mg BEDTIME PRN Administration Anxiety Dexamethasone 2 mg 01/14/25 09:00 01/18/25 10:47 Dexamethasone 10 Mg/Ml Inj PO Not Given Q24H MICHELE Famotidine 20 mg 01/05/25 18:20 01/18/25 17:00 Famotidine 20 Mg Tablet PO Not Given BID MICHELE Guaifenesin 1,200 mg 01/06/25 14:00 01/18/25 17:00 Guaifenesin 600 Mg Tablet PO Not Given BID MICHELE Haloperidol Lactate 1 mg 01/17/25 15:39 01/17/25 22:59 Haloperidol Inj 5 Mg/Ml Inj 1 Ml IM 1 mg Q4H PRN Administration AGITATION Aztreonam 1,000 mg/ Sodium 50 mls @ 100 mls/hr 01/16/25 13:45 01/18/25 17:08 Chloride IV 100 mls/hr Q12H MICHELE Administration Micafungin Sodium 100 mg/ 100 mls @ 100 mls/hr 01/17/25 10:00 01/18/25 11:27 Sodium Chloride IV 100 mls/hr Q24H MICHELE Administration Sodium Chloride 1,000 mls @ 50 mls/hr 01/18/25 08:15 01/18/25 08:30 Sodium Chloride 0.9% IV 50 mls/hr .Q20H MICHELE Administration Dexmedetomidine/Sodium Chloride 400 mcg in 100 mls @ 0 mls/hr 01/18/25 13:00 01/18/25 17:47 Precedex IV 0.3 mcg/kg/hr .Q0M MICHELE 5.47 mls/hr Titration Protocol Per Protocol Insulin Human Lispro 0 unit 01/16/25 18:00 01/18/25 17:00 Insulin Lispro 100 Unit/1 Ml SUBCUT Not Given WM&BEDTIME MICHELE Protocol Lorazepam 0.5 mg 01/17/25 09:54 01/18/25 12:47 Lorazepam 2 Mg/Ml Inj 1 Ml IVP 0.5 mg Q4H PRN Administration ANXIETY Magnesium Oxide 400 mg 01/08/25 18:00 01/18/25 17:00 Magnesium Oxide 400 Mg Tablet PO Not Given BID MICHELE Metoprolol Succinate 50 mg 01/09/25 12:00 01/18/25 10:51 Metoprolol Succinate Er (24 Hr) 25 Mg Tablet PO Not Given DAILY MICHELE Montelukast Sodium 10 mg 01/06/25 09:00 01/18/25 10:51 Montelukast Sodium 10 Mg Tablet PO Not Given DAILY MICHELE Nicotine 1 patch 01/06/25 14:30 01/18/25 16:43 Nicotine 14 Mg Patch TRANSDERMA 1 patch Q24H MICHELE Administration Nystatin 100,000 unit 01/08/25 13:00 01/18/25 17:00 Nystatin 100,000 Unit/Ml Udc 5 Ml PO Not Given QID MICHELE Ondansetron HCl 4 mg 01/05/25 18:20 01/13/25 09:13 Ondansetron 2 Mg/Ml Sdv 2 Ml IVP 4 mg Q8H PRN Administration vomiting, or N/V if npo Oxycodone HCl 15 mg 01/05/25 18:40 01/16/25 19:16 Oxycodone 5 Mg Ir Tab/Cap PO 15 mg Q6H PRN Administration pain Polyethylene Glycol 17 gm 01/14/25 09:00 01/18/25 10:51 Polyethylene Glycol 3350 Pkt 17 Gm PO Not Given DAILY MICHELE PFSH Acute PFSH: Medical History Heart failure with mildly reduced ejection fraction Nicotine dependence, cigarettes, with unspecified nicotine-induced disorders Bilateral breast cancer Asthma Anxiety Acute respiratory failure with hypoxia and hypercarbia CHF (congestive heart failure) COPD (chronic obstructive pulmonary disease) Respiratory failure Paroxysmal atrial fibrillation MYRA (generalized anxiety disorder) Hypersomnia Chronic anticoagulation Atrial fib/flutter, transient Osteoporosis History of COVID-12 Aug 2021 Pneumonia Chronic kidney disease Diabetic peripheral neuropathy Anemia Carotid artery disease B12 deficiency Chronic pain CVA (cerebral vascular accident) History of nonmelanoma skin cancer Atopic dermatitis Seasonal allergies Renal artery stenosis Descending thoracic aortic aneurysm AAA (abdominal aortic aneurysm) Status post stent graft repair Obesity HTN (hypertension) Dyslipidemia Diabetes 1.5, managed as type 2 Surgical History History of total mastectomy of left breast 04/[address] Vo at [place], [place] History of stent insertion of renal artery History of aortic aneurysm repair S/P mastectomy (08/2009) Right modified radical mastectomy S/P cholecystectomy S/P tonsillectomy S/P hysterectomy Family History Other Stroke Social History Smoking and tobacco/nicotine status: current every day tobacco/nicotine user cigarettes Packs smoked per day: 0.5 Years cigarettes smoked: 66 Alcohol intake: never Substance/Drug Use: never Vitals/I&O/Wt Last Vital Signs Temp 97.8 F 01/18/25 10:40 Pulse 93 01/18/25 16:15 Resp 16 01/18/25 16:15 BP 110/66 01/18/25 16:15 Pulse Ox 99 01/18/25 16:15 O2 Del Method Nasal Cannula 01/18/25 16:15 O2 Flow Rate 3.5 01/18/25 16:15 FiO2 30 01/12/25 08:00 01/18/25 01/18/25 01/18/25 06:59 14:59 22:59 Intake Total 50 / 1336.25 2.214 / 2.214 3.068 / 5.282 Balance 50 / 1136.25 2.214 / 2.214 3.068 / 5.282 Physical Exam Narrative: Patient is somnolent difficult to arouse No distress S1-S2 regular rate and rhythm per report Lungs clear per report Has edema Urinary Catheter Management: Matias: Cath Placed During This Visit: yes, but has since been removed by the nurse Reason for Continuing Indwelling Catheter: Accurate Measurement of Urinary Output in Critically Ill Patients Urinary Catheter Date of Insertion: 01/10/25 Urinary Catheter Time of Insertion: 15:08 Date Urinary Catheter Removed: 01/16/25 Time Urinary Catheter Discontinued: 12:30 Data 01/18/25 03:28 01/18/25 03:28 Micro: Microbiology 01/16/25 10:49 Urine Culture - Final Urine,Clean Catch 01/16/25 13:31 Blood Culture - Preliminary Blood NEGATIVE TO DATE 01/16/25 13:32 Blood Culture - Preliminary Blood NEGATIVE TO DATE A&P Assessment and plan (1) Uremia: (2) Acute kidney injury superimposed on CKD: 1. 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 Patient volume status is stable and electrolytes are stable but patient has encephalopathy, etiology still unclear. Uremia might be contributing. Will increase IV fluids to 100 cc of an hour overnight and continue to monitor renal function. If no improvement could consider temporary HD for possible uremic encephalopathy. All sedating meds are being withdrawn as well -No hydronephrosis on renal ultrasound 2. Encephalopathy, likely metabolic, plan as above 3. Acute on chronic respiratory failure in the setting of CHF with low ejection fraction and COPD, status post diuresis 4. Rapid A-fib 5. CHF with low ejection fraction of 30% 6. History of diabetes PDMP PDMP Reviewed: Not Reviewed Consult Attestations Medical Necessity Statement: Per medicine Coding Level of Care Code Acute Code for Chg Fwd Diagnoses Uremia N19 Acute kidney injury superimposed on CKD N17.9; N18.9
--- NOTE | 2025-01-18 18:24 | P.PN_ITS ---
Subjective 2 Subjective: - Patient was examined early this reema cavanaugh she had episodes of agitation and confusion during the night -This morning she is alert to person, no t to place, to time -She intermittently removes her oxygen, trying to remove her IV, diffusely encephalopathic -PEEP is equal reactive to light, she do es not follow neurologic testing but has good manager hotel strength upper lower extremities -She has been afebrile, blood pressures have been soft, but currently normotensive, -Patient was moved to ICU for closer mon itoring -She was monitored in ICU, seen by me a few times -She was seen with family numbers at bed side patient's daughter is at bedside -At this time patient was try to bite he r own hand, bite her daughters hand, diffusely encephalopathic agitated has received Ativan, Haldol because she had episodes of confusion -Discussed with daughter her prolonged h ospitalization now with significant encephalopathy -Current etiology is likely sec to UTI h owever she has been on broad-spectrum antibiotic therapy but continues to have encephalopathy -Will have to watch her mentation closel y, I will do a repeat head CT repeat her blood work, monitor her closely -Uremia certainly could be playing a rol e we will continue IV fluids -Her lactic acid is within normal limits -Ammonia levels within normal limits -BNP is 11,000 however she is not fluid overloaded -So far repeat blood cultures are negati ve -Await urine cultures -Discussed for also possibly withdrawing from medications, medication side effect -Patient daughter tells me that when she had repair of her thoracic aortic aneurysm, she had similar episodes of confusion, -Will watch her mentation closely -Discussed her overall goals of care, co ntinue medical management Vitals/I&O/Wt Last Vital Signs Temp 97.8 F 01/18/25 10:40 Pulse 93 01/18/25 16:15 Resp 16 01/18/25 16:15 BP 110/66 01/18/25 16:15 Pulse Ox 99 01/18/25 16:15 O2 Del Method Nasal Cannula 01/18/25 16:15 O2 Flow Rate 3.5 01/18/25 16:15 FiO2 30 01/12/25 08:00 01/18/25 01/18/25 01/18/25 06:59 14:59 22:59 Intake Total 50 / 1336.25 2.214 / 2.214 3.068 / 5.282 Balance 50 / 1136.25 2.214 / 2.214 3.068 / 5.282 Physical Exam 2 Const: COMMON NORMALS: no acute distress ORIENTATION/CONSCIOUSNESS: Yes awake and Yes confused; not oriented to person, not oriented to place and not oriented to time Resp: COMMON NORMALS: normal respiratory effort, No retractions, No use of accessory muscles and clear to auscultation bilaterally AUSCULTATION: clear to auscultation bilaterally Cardio: COMMON NORMALS: regular rate, regular rhythm, S1 normal heart sound present and S2 normal heart sound present RATE: regular rate RHYTHM: r egular rhythm HEART SOUNDS: S1 normal heart sound present and S2 normal heart sound present GI: COMMON NORMALS: Normal to inspection, nondistended, normoactive bowel sounds present and non-tender Extremity: COMMON NORMALS: no pedal edema Neuro: SENSORIUM/ORIENTATION: No oriented to person, No oriented to place and No oriented to time Urinary Catheter Management: Matias: Cath Placed During This Visit: yes, but has since been removed by the nurse Reason for Continuing Indwelling Catheter: Accurate Measurement of Urinary Output in Critically Ill Patients Urinary Catheter Date of Insertion: 01/10/25 Urinary Catheter Time of Insertion: 15:08 Date Urinary Catheter Removed: 01/16/25 Time Urinary Catheter Discontinued: 12:30 Data 01/18/25 03:28 01/18/25 03:28 Micro: Microbiology 01/16/25 10:49 Urine Culture - Final Urine,Clean Catch 01/16/25 13:31 Blood Culture - Preliminary Blood NEGATIVE TO DATE 01/16/25 13:32 Blood Culture - Preliminary Blood NEGATIVE TO DATE A&P Assessment and plan (1) Acute and chronic respiratory failure ([id number]): -Resolved -Multifactorial -From influenza -From aspiration pneumonia -From fluid overload, systolic CHF exacerbation, BNP over 45,000 -COPD exacerbation -A-fib with RVR CONCLUSIONS Moderately increased left ventricular cavity size. Severely decreased left ventricular systolic function. Left ventricular ejection fraction is estimated at 30 %. Global left ventricular hypokinesis. Moderately increased left atrial size. Moderately thickened mitral valve. Mild mitral annular calcification. No mitral valve stenosis. Moderate-severe mitral valve regurgitation. Moderate aortic valve calcification. No aortic valve stenosis. Trace aortic valve regurgitation. Mild tricuspid valve regurgitation. There is no pericardial effusion. Plan - moved to cardiac stepdown unit -Currently on nasal cannula -Creatinine up to 2.2 hold Lasix -Completed Tamiflu -Completed p.o. antibiotics -Monitor respiratory status -DuoNeb as needed -De-escalate to Decadron 2 mg daily burst (2) Atrial fibrillation with rapid ventricular response: Transition of amiodarone drip to p.o. amiodarone Switch to Eliquis (3) Influenza: Tamiflu 30 mg daily, completed (4) Hypotension: Monitor (5) Acute kidney injury superimposed on CKD: Creatinine 2.2, on fluids -Monitor urine output, monitor creatinine (6) Acute on chronic anemia: Hemoglobin stable (7) Nicotine dependence, cigarettes, with unspecified nicotine-induced disorders: (8) Diabetes 1.5, managed as type 2: Insulin sliding scale (9) Acute encephalopathy: As below (10) Acute CHF: CONCLUSIONS Moderately increased left ventricular cavity size. Severely decreased left ventricular systolic function. Left ventricular ejection fraction is estimated at 30 %. Global left ventricular hypokinesis. Moderately increased left atrial size. Moderately thickened mitral valve. Mild mitral annular calcification. No mitral valve stenosis. Moderate-severe mitral valve regurgitation. Moderate aortic valve calcification. No aortic valve stenosis. Trace aortic valve regurgitation. Mild tricuspid valve regurgitation. There is no pericardial effusion. Stress test in April 2021 IMPRESSIONS 1. Abnormal myocardial perfusion imaging with small infarct noted in the apical inferior wall. No evidence of ischemia 2. LV systolic function is normal with EF of 59% -Aspirin, statin, Eliquis -Will need repeat stress testing and/or coronary angiography and cardiology evaluation at some point, once her respiratory status is improved (11) Aspiration pneumonia: - Resolved (12) Sepsis: - Resolved Qualifiers: Acute renal failure type: unspecified Sepsis acute organ dysfunction status: with acute organ dysfunction Sepsis type: sepsis due to unspecified organism Severe sepsis acute organ dysfunction type: acute renal failure S evere sepsis shock status: without septic shock Qualified Code(s): A41.9 - Sepsis, unspecified organism; R65.20 - Severe sepsis without septic shock; N17.9 - Acute kidney failure, unspecified (13) UTI (urinary tract infection): - As below (14) Uremia: Plan -Acute encephalopathy -Patient's mentation has slowly deteriorated -She is now alert to person, not to place, time episodes of agitation, biting herself, biting family members at bedside -Etiology? -Component of emphysematous cystitis, however blood cultures so far unremarkable, she remains afebrile, on broad-spectrum antibiotic therapy -Potentially modification side effect? Will stop Decadron -Potentially CVA? She does not have any focal neurologic deficits, her symptoms seem more global she is good strength in upper and lower extremities -Possible seizure? Will give her 1 dose IV Keppra to see if she has a response -Possible uremia playing a role? On IV fluids -ABG yesterday did not show any significant hypercarbia -Repeat head CT -Follow blood culture -Follow urine culture -CT abdomen pelvis shows trace gas in the bladder wall, possible emphysematous cystitis -UA with evidence of cm UTI stop meropenem due to concerns for confusion associate with meropenem switched to aztreonam, added vancomycin -Added micafungin for concerns for fungal infection -Lactic acid within normal limits -Ammonia levels within normal limits -Add IV fluids -Will consider lumbar puncture based on clinical progress -Will consider MRI based on clinical progress -Will check acetaminophen levels, salicylate level, drug screen, ESR, ferritin, haptoglobin, LDH -Has noticed episodes of agitation, biting her own hand, biting her family members -Haldol, Ativan as needed for agitation -Precedex drip Does have soft blood pressures, monitor - Hypokalemia, replace potassium -Uremia, improving -Hypoglycemia resolved Plan for today, monitor acute encephalopathy, continue IV vancomycin, aztreonam added micafungin monitor mentation closely follow blood cultures, urine culture, follow CBC, BMP, switch to Eliquis PDMP PDMP Reviewed: Not Reviewed Attestations 2 Medical Necessity Statement*: Patient requires hospitalization for acute encephalopathy, undetermined etiology, requiring ICU level monitoring Diagnoses Acute and chronic respiratory failure (homrh-co-gluxisp) J96.20 Atrial fibrillation with rapid ventricular response I48.91 Influenza J11.1 Hypotension I95.9 Acute kidney injury superimposed on CKD N17.9; N18.9 Acute on chronic anemia D64.9 Nicotine dependence, cigarettes, 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
[2025-01-18 19:37] LABS: Erythrocyte Sedimentation Rate 2 mm/hr (0-15)
[2025-01-18 19:44] LABS: Lactate Dehydrogenase 323 U/L (135-214)
[2025-01-18 19:48] LABS: Acetaminophen < 5.0 ug/mL (10-30); Salicylate < 0.3 mg/dL (3-10)
[2025-01-18] MEDS: levETIRAcetam 1,000 MG/100 ML PREMIX 400 MG IV (19:50)
[2025-01-18 20:05] LABS: Ferritin 1115 ng/mL (15-150)
--- NOTE | 2025-01-18 21:18 | PC.NURSE ---
patient flinching to painful stimuli thus far this shift precedex titrated down due LOC and decreased HR provider notified of infusion pause
[2025-01-18 22:18] LABS: Glucose Point of Care 112 mg/dL (70-110)
[2025-01-19] VITALS (66 sets, daily range): BP systolic 62–129; BP diastolic 33–94; PULSE 68–118; RESP 5–35; O2SAT 85–98
[2025-01-19] MEDS: sodium chloride 0.9% 1,000 ML 100 ML IV (00:19)
--- NOTE | 2025-01-19 01:31 | PC.NURSE ---
blood pressure soft with MAP of 60 spoke with provider instructions to dc precedex and start levofed
[2025-01-19] MEDS: aztreonam 1,000 MG in sodium chloride 0.9% (plus) 50 ML 100 MG IV ×2 (04:25→16:09)
[2025-01-19 05:19] LABS: Eosinophils # 0.2 10^3/uL (0.0-0.8); Hematocrit 29.7 % (36-47); Lymphocytes # 0.6 10^3/uL (0.8-4.8); Lymphocytes % 6.2 %; Mean Corpuscular Hemoglobin 29.1 pg (27-33); Mean Platelet Volume 12.2 fL (7.4-10.4); Monocytes % 10.2 %; Neutrophils # 7.54 10^3/uL (1.8-7.7); Neutrophils % 81.2 %; Nucleated Red Blood Cells % 0 %; Platelet Count 166 10^3/cmm (157-399); Red Blood Count 3.16 10^6/uL (3.85-5.65); Red Cell Distribution Width 15.2 % (12.1-15.1)
--- NOTE | 2025-01-19 05:20 | PC.NURSE ---
Bp and heart rate recovering after discontinuation of precedex, patient has been confused and rmoving o2 through out the the shift however with repositioning and warm blankets was easy to settle
[2025-01-19 05:38] LABS: C Reactive Protein 16.1 mg/L (0.0-4.9)
[2025-01-19 05:41] LABS: Lactate (Lactic Acid level) 1.3 mmol/L (0.5-2.2); Vancomycin Random 16.3 ug/mL (20.0-40.0)
[2025-01-19 05:48] LABS: NT Pro B Type Natriuretic Pept 14707 pg/mL (0-450); Procalcitonin 0.65 ng/mL (0-0.5)
[2025-01-19 05:59] LABS: Anion Gap 14.8 (5-19); Blood Urea Nitrogen 66 mg/dL (8-23); Calcium 8.1 mg/dL (8.5-10.5); Carbon Dioxide 26 mmol/L (22-29); Chloride 112 mmol/L (98-107); Creatinine Clr Calc Pharmacy 24.4145; Glucose 105 mg/dL (65-115); Osmolality Calculated 327 mOsm/kg (285-295); Potassium 3.8 mmol/L (3.5-5.1); Sodium 149 mmol/L (136-145)
[2025-01-19] MEDS: LORazepam 2 mg/mL INJ 1 mL 0.5 MG IVP ×2 (07:16→16:22)
[2025-01-19 07:41] LABS: Glucose Point of Care 107 mg/dL (70-110)
[2025-01-19] MEDS: guaiFENesin 600 mg Tablet 1200 MG PO (07:59)
[2025-01-19] MEDS: apixaban 5 mg Tablet 2.5 MG PO (07:59)
[2025-01-19] MEDS: famotidine 20 mg Tablet PO (07:59)
[2025-01-19] MEDS: montelukast sodium 10 mg Tablet PO (07:59)
[2025-01-19] MEDS: aspirin 81 mg EC Tablet PO (07:59)
[2025-01-19] MEDS: haloperidol inj 5 mg/mL INJ 1 mL 1 MG IM ×2 (07:59→16:22)
[2025-01-19] MEDS: magnesium oxide 400 mg tablet PO (07:59)
[2025-01-19] MEDS: bisacodyl 5 mg Tablet 10 MG PO (07:59)
[2025-01-19] MEDS: budesonide 0.5 mg/2 mL Neb INHALATION ×2 (08:18→20:01)
[2025-01-19] MEDS: ipratropium-albuterol 3 mL Neb INHALATION ×4 (08:18→20:01)
[2025-01-19] MEDS: dexmedeTOMIDine 0.9 % NaCL 400 MCG/100 ML PREMIX IV (08:45)
--- NOTE | 2025-01-19 08:52 | ECG_ITS ---
[facility] Test Date: 2025-01-19 Pat Name: Paloma Salter Department: Room: [facility] Gender: Female Asset Administrator: : 1940 Requested By: Gurmeet Vega Order Number: [id number] Latisha MD: Jaxon Fernandes M.D. Measurements Intervals [place] Rate: 106 P: 0 WA: 0 QRS: 241 QRSD: 166 T: 56 QT: 411 QTc: 548 Interpretive Statements ATRIAL FIBRILLATION WITH RAPID VENTRICULAR RESPONSE RIGHT AXIS DEVIATION [QRS AXIS > 100] INTRAVENTRICULAR CONDUCTION DELAY [130+ ms QRS DURATION] Compared to ECG 01/10/2025 08:47:09 No significant changes Electronically Signed On 01-22-2025 08:05:44 RN FIRST ASSIST by Jaxon Fernandes M.D. [id number]
[2025-01-19 09:08] LABS: Troponin(5th) Baseline 67 ng/L (0-10)
--- NOTE | 2025-01-19 10:09 | ECG_ITS ---
[facility] Test Date: 2025-01-19 Pat Name: Paloma Slater Department: Room: [facility] Gender: Female Test Examiner: : 1940 Requested By: Gurmeet Vega Order Number: [id number] Latisha MD: Jaxon Fernandes M.D. Measurements Intervals [place] Rate: 100 P: 0 ND: 0 QRS: 202 QRSD: 162 T: 91 QT: 432 QTc: 560 Interpretive Statements ATRIAL FIBRILLATION WITH RAPID VENTRICULAR RESPONSE RIGHT AXIS DEVIATION [QRS AXIS > 100] INTRAVENTRICULAR CONDUCTION DELAY [130+ ms QRS DURATION] Compared to ECG 01/19/2025 08:52:43 No significant changes Electronically Signed On 01-22-2025 08:29:00 APPLIANCE WORKER by Jaxon Fernandes M.D. [id number]
[2025-01-19] MEDS: micafungin 100 MG in sodium chloride 0.9% (plus) 100 ML IV (10:17)
[2025-01-19] MEDS: dextrose 5%-sod chloride 0.45% 1,000 ML 100 ML IV (10:20)
[2025-01-19] MEDS: levETIRAcetam 500 MG/100 ML PREMIX 400 MG IV ×2 (10:20→21:14)
[2025-01-19 11:32] LABS: Troponin 5 2HR 63.23 ng/L (0-10)
[2025-01-19 11:33] LABS: Troponin 5 2HR Delta -3.77 ABS# (0-10)
[2025-01-19 12:00] LABS: Glucose Point of Care 146 mg/dL (70-110)
--- NOTE | 2025-01-19 12:06 | PC.OT ---
OT TREATMENT HELD PER NURSING REQUEST DUE TO AGITATION.
--- NOTE | 2025-01-19 12:44 | PC.SOCIAL ---
IMM Updated Provided pt a copy & left at bedside for family to review. Initialed, dated, & timed copy in chart.
--- NOTE | 2025-01-19 12:53 | P.PN_ITS ---
Subjective 2 Subjective: no new complaints Medications: Reviewed: Yes Vitals/I&O/Wt Last Vital Signs Temp 96.4 F L 01/18/25 20:26 Pulse 87 01/19/25 12:30 Resp 19 H 01/19/25 12:30 BP 123/54 01/19/25 12:30 Pulse Ox 97 01/19/25 12:30 O2 Del Method Nasal Cannula 01/19/25 12:30 O2 Flow Rate 3.5 01/19/25 12:30 FiO2 30 01/12/25 08:00 01/18/25 01/19/25 01/19/25 22:59 06:59 14:59 Intake Total 1042.560 / 1044.774 531.831 / 1576.605 2.912 / 2.912 Balance 1042.560 / 1044.774 531.831 / 1576.605 2.912 / 2.912 Physical Exam 2 Narrative: Patient is somnolent difficult to arouse No distress S1-S2 regular rate and rhythm per report Lungs clear per report Has edema Urinary Catheter Management: Matias: Cath Placed During This Visit: yes, but has since been removed by the nurse Reason for Continuing Indwelling Catheter: Accurate Measurement of Urinary Output in Critically Ill Patients Urinary Catheter Date of Insertion: 01/10/25 Urinary Catheter Time of Insertion: 15:08 Date Urinary Catheter Removed: 01/16/25 Time Urinary Catheter Discontinued: 12:30 Data 01/19/25 04:56 01/19/25 04:56 Micro: Microbiology 01/16/25 10:49 Urine Culture - Final Urine,Clean Catch A&P Assessment and plan (1) Uremia: (2) Acute kidney injury superimposed on CKD: 1. 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 Patient volume status is stable and electrolytes are stable but patient has encephalopathy, etiology still unclear. Uremia might be contributing. -BUN improving, Cr better , -switch IVFs to 1//2 NS due to hypernatremia -No hydronephrosis on renal ultrasound 2. Encephalopathy, likely metabolic, plan as above 3. Acute on chronic respiratory failure in the setting of CHF with low ejection fraction and COPD, status post diuresis 4. Rapid A-fib 5. CHF with low ejection fraction of 30% 6. History of diabetes PDMP PDMP Reviewed: Not Reviewed Attestations 2 Medical Necessity Statement*: per medicine Coding Level of Care Code Acute Code for Chg Fwd Diagnoses Uremia N19 Acute kidney injury superimposed on CKD N17.9; N18.9
[2025-01-19] MEDS: insulin lispro 100 unit/1 mL SUBCUT ×2 (13:05→18:00)
[2025-01-19] MEDS: nicotine 14 mg Patch 1 PATCH TRANSDERMA (13:32)
--- NOTE | 2025-01-19 14:28 | PC.NURSE ---
Patient is only able to tell this nurse their name and month of their birthday. Patient is confused and becomes easily agitated. Patient pulls at oxygen tubing and at IVs and does not follow commands. Precedex has been running per protocol.
[2025-01-19 15:31] LABS: Troponin 5 6HR 65.79 ng/L (0-10); Troponin 5 6HR Delta -1.21 ng/L (0-12)
--- NOTE | 2025-01-19 15:46 | P.PN_ITS ---
Subjective 2 Subjective: - Overnight there was concerns for hypot ension, plans on Levophed, however patient's blood pressures remain reasonable and it was not started -This morning she can open up her eyes, she recognizes her name, she is able to take her pills however remains diffusely encephalopathic pupils equal round reactive to light, moves bilateral upper lower extremities -No family members at bedside -Spoke with nursing staff, she did recei ve Keppra last night, to see if she respond her mentation is a bit better compared to yesterday -Will continue Keppra 500 mg twice daily -Given persistent encephalopathy plans o n doing an MRI -Unfortunate cannot do a lumbar puncture as patient is on Eliquis last dose was this morning, will start on acyclovir for possible concerns for viral meningitis Vitals/I&O/Wt Last Vital Signs Temp 96.4 F L 01/18/25 20:26 Pulse 77 01/19/25 14:00 Resp 14 01/19/25 14:00 BP 122/52 01/19/25 14:00 Pulse Ox 96 01/19/25 14:00 O2 Del Method Nasal Cannula 01/19/25 14:00 O2 Flow Rate 3.5 01/19/25 14:00 FiO2 30 01/12/25 08:00 01/19/25 01/19/25 01/19/25 06:59 14:59 22:59 Intake Total 531.831 / 1576.605 22.337 / 22.337 Balance 531.831 / 1576.605 22.337 / 22.337 Physical Exam 2 Const: COMMON NORMALS: no acute distress ORIENTATION/CONSCIOUSNESS: Yes awake, Yes oriented to person and Yes oriented to place; not oriented to time Eye: COMMON NORMALS: Equal, round and reactive pupils present PUPIL: Yes Equal, round and reactive pupils present Resp: COMMON NORMALS: normal respiratory effort, No retractions, No use of accessory muscles and clear to auscultation bilaterally AUSCULTATION: clear to auscultation bilaterally Cardio: COMMON NORMALS: regular rate, regular rhythm, S1 normal heart sound present and S2 normal heart sound present RATE: regular rate RHYTHM: r egular rhythm HEART SOUNDS: S1 normal heart sound present and S2 normal heart sound present GI: COMMON NORMALS: Normal to inspection, nondistended, normoactive bowel sounds present and non-tender Extremity: COMMON NORMALS: no pedal edema Neuro: SENSORIUM/ORIENTATION: Yes oriented to person, Yes oriented to place and No oriented to time OTHER: Does not follow neurologic testing, no slurring of her words no facial droop has good strength upper lower extremities, remains today for this encephalopathic Urinary Catheter Management: Matias: Cath Placed During This Visit: yes, but has since been removed by the nurse Reason for Continuing Indwelling Catheter: Accurate Measurement of Urinary Output in Critically Ill Patients Urinary Catheter Date of Insertion: 01/10/25 Urinary Catheter Time of Insertion: 15:08 Date Urinary Catheter Removed: 01/16/25 Time Urinary Catheter Discontinued: 12:30 Data 01/19/25 04:56 01/19/25 04:56 Micro: Microbiology 01/16/25 10:49 Urine Culture - Final Urine,Clean Catch A&P Assessment and plan (1) Acute and chronic respiratory failure ([id number]): -Resolved -Multifactorial -From influenza, completed treatment -From aspiration pneumonia, completed IV antibiotics -From fluid overload, systolic CHF exacerbation, BNP over 45,000, now down to 14,000 at risk of fluid overload -COPD exacerbation, completed steroids -A-fib with RVR CONCLUSIONS Moderately increased left ventricular cavity size. Severely decreased left ventricular systolic function. Left ventricular ejection fraction is estimated at 30 %. Global left ventricular hypokinesis. Moderately increased left atrial size. Moderately thickened mitral valve. Mild mitral annular calcification. No mitral valve stenosis. Moderate-severe mitral valve regurgitation. Moderate aortic valve calcification. No aortic valve stenosis. Trace aortic valve regurgitation. Mild tricuspid valve regurgitation. (2) Atrial fibrillation with rapid ventricular response: p.o. amiodarone (3) Influenza: Tamiflu 30 mg daily, completed (4) Hypotension: Monitor (5) Acute kidney injury superimposed on CKD: Creatinine 1.7, on fluids -Monitor urine output, monitor creatinine (6) Acute on chronic anemia: Hemoglobin stable (7) Nicotine dependence, cigarettes, with unspecified nicotine-induced disorders: (8) Diabetes 1.5, managed as type 2: Insulin sliding scale (9) Acute encephalopathy: As below (10) Acute CHF: CONCLUSIONS Moderately increased left ventricular cavity size. Severely decreased left ventricular systolic function. Left ventricular ejection fraction is estimated at 30 %. Global left ventricular hypokinesis. Moderately increased left atrial size. Moderately thickened mitral valve. Mild mitral annular calcification. No mitral valve stenosis. Moderate-severe mitral valve regurgitation. Moderate aortic valve calcification. No aortic valve stenosis. Trace aortic valve regurgitation. Mild tricuspid valve regurgitation. There is no pericardial effusion. Stress test in April 2021 IMPRESSIONS 1. Abnormal myocardial perfusion imaging with small infarct noted in the apical inferior wall. No evidence of ischemia 2. LV systolic function is normal with EF of 59% -Aspirin, statin, Eliquis -Will need repeat stress testing and/or coronary angiography and cardiology evaluation at some point, once her respiratory status is improved (11) Aspiration pneumonia: - Resolved (12) Sepsis: - Resolved Qualifiers: Acute renal failure type: unspecified Sepsis acute organ dysfunction status: with acute organ dysfunction Sepsis type: sepsis due to unspecified organism Severe sepsis acute organ dysfunction type: acute renal failure S evere sepsis shock status: without septic shock Qualified Code(s): A41.9 - Sepsis, unspecified organism; R65.20 - Severe sepsis without septic shock; N17.9 - Acute kidney failure, unspecified (13) UTI (urinary tract infection): - As below (14) Uremia: Plan -Acute encephalopathy -Patient's mentation has slowly deteriorated -She is now alert to person, not to place, time episodes of agitation, biting herself, biting family members at bedside -Etiology? -Component of emphysematous cystitis, however blood cultures so far unremarkable, she remains afebrile, on broad-spectrum antibiotic therapy -Potentially modification side effect? Will stop Decadron -Potentially CVA? She does not have any focal neurologic deficits, her symptoms seem more global she is good strength in upper and lower extremities -Drug withdrawal patient is on her home medications, possible narcotic withdrawal? She has been receiving her narcotics since being hospitalized -Possible seizure? Potentially responded to Keppra continue Keppra 500 mg twice daily, EEG ordered -Possible uremia playing a role? On IV fluids -ABG yesterday did not show any significant hypercarbia -Repeat head CT no acute findings -Follow blood culture, so far no growth -Follow urine culture, so far no growth -CT abdomen pelvis shows trace gas in the bladder wall, possible emphysematous cystitis -UA with evidence of cm UTI stop meropenem due to concerns for confusion associate with meropenem switched to aztreonam, added vancomycin -Added micafungin for concerns for fungal infection, so far and no significant findings -Added acyclovir for possible viral meningitis -Will hold aspirin, Eliquis, will consider lumbar puncture in 24-48 hours based on clinical progress -Lactic acid within normal limits -Ammonia levels within normal limits -Add IV fluids as above, uremia improving -Will consider lumbar puncture based on clinical progress, aspirin and Plavix on hold -MRI brain ordered -Tick panel, HSV, CMV -Will check acetaminophen levels WNL, salicylate level WNL , drug screen pending, ESR 2, ferritin 1115, haptoglobin 206, LDH 323 -Has noticed episodes of agitation, biting her own hand, biting her family members -Haldol, Ativan as needed for agitation -Precedex drip Does have soft blood pressures, monitor - Hypokalemia, replace potassium -Uremia, improving -Hypoglycemia resolved Plan for today, added IV acyclovir, MRI brain, EEG, hold aspirin, Eliquis, monitor mentation PDMP PDMP Reviewed: Not Reviewed Attestations 2 Medical Necessity Statement*: Patient requires hospitalization for acute encephalopathy Diagnoses Acute and chronic respiratory failure ([id number]) J96.20 Atrial fibrillation with rapid ventricular response I48.91 Influenza J11.1 Hypotension I95.9 Acute kidney injury superimposed on CKD N17.9; N18.9 Acute on chronic anemia D64.9 Nicotine dependence, cigarettes, 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
--- NOTE | 2025-01-19 16:17 | ECG_ITS ---
[facility] Test Date: 2025-01-19 Pat Name: Paloma Slater Department: Room: [facility] Gender: Female Gold Charmer: : 1940 Requested By: Gurmeet Vega Order Number: [id number] Latisha MD: Jaxon Fernandes M.D. Measurements Intervals [place] Rate: 67 P: 0 WA: 0 QRS: -54 QRSD: 169 T: 101 QT: 498 QTc: 529 Interpretive Statements ATRIAL FIBRILLATION LEFT AXIS DEVIATION [QRS AXIS < -30] INTRAVENTRICULAR CONDUCTION DELAY [130+ ms QRS DURATION] Compared to ECG 01/19/2025 10:09:58 Left-axis deviation now present Right-axis deviation no longer present Electronically Signed On 01-22-2025 08:26:04 INSIDE WIRER by Jaxon Fernandes M.D. [id number]
[2025-01-19 17:49] LABS: Glucose Point of Care 146 mg/dL (70-110)
--- NOTE | 2025-01-19 19:01 | PC.NURSE ---
Patient was taken to MRI but would not hold steady for the procedure. technical solutions consultant said to call them if there was any questions.
[2025-01-19 21:15] LABS: Glucose Point of Care 130 mg/dL (70-110)
[2025-01-20] VITALS (61 sets, daily range): BP systolic 75–166; BP diastolic 31–119; PULSE 68–101; RESP 15–33; TEMP 36.1–36.6; O2SAT 81–100
[2025-01-20] MEDS: dexmedeTOMIDine 0.9 % NaCL 400 MCG/100 ML PREMIX 5.47 MCG IV (01:11)
--- NOTE | 2025-01-20 01:23 | PC.NURSE ---
Void Unable to accurately measure urine output. Patient soiled one brief.
[2025-01-20] MEDS: dextrose 5%-sod chloride 0.45% 1,000 ML 100 ML IV (02:15)
[2025-01-20 03:46] LABS: Basophils % 0.2 %; Eosinophils # 0.2 10^3/uL (0.0-0.8); Eosinophils % 2.3 %; Hematocrit 28.8 % (36-47); Lymphocytes # 0.5 10^3/uL (0.8-4.8); Lymphocytes % 5.4 %; Mean Corpuscular HGB Conc 30.6 g/dL (30-55); Mean Corpuscular Hemoglobin 28.6 pg (27-33); Mean Corpuscular Volume 93.5 fl (85-98); Monocytes # 0.9 10^3/uL (0.2-0.9); Monocytes % 9.3 %; Neutrophils # 8.06 10^3/uL (1.8-7.7); Neutrophils % 82.5 %; Nucleated Red Blood Cells % 0 %; Platelet Count 157 10^3/cmm (157-399); Red Blood Count 3.08 10^6/uL (3.85-5.65); Red Cell Distribution Width 15.6 % (12.1-15.1); White Blood Count 9.77 10^3/uL (3.29-11.43)
[2025-01-20 04:05] LABS: Alanine Aminotransferase 21 U/L (0-33); Alkaline Phosphatase 95 U/L (35-105); Anion Gap 11.3 (5-19); Aspartate Amino Transferase 19 U/L (0-32); Blood Urea Nitrogen 51 mg/dL (8-23); Carbon Dioxide 27 mmol/L (22-29); Chloride 114 mmol/L (98-107); Creatinine Clr Calc Pharmacy 31.9266; Globulin 2.1 g/dL (1.3-4.6); Glucose 205 mg/dL (65-115); Osmolality Calculated 328 mOsm/kg (285-295); Potassium 3.3 mmol/L (3.5-5.1); Sodium 149 mmol/L (136-145); Total Bilirubin 1.5 mg/dL (0.15-1.2); Total Protein 5.1 g/dL (6.6-8.7)
[2025-01-20 04:06] LABS: C Reactive Protein 44.7 mg/L (0.0-4.9); Lactate (Lactic Acid level) 0.8 mmol/L (0.5-2.2)
[2025-01-20] MEDS: aztreonam 1,000 MG in sodium chloride 0.9% (plus) 50 ML 100 MG IV (04:14)
[2025-01-20 04:15] LABS: Vancomycin Random 10.7 ug/mL (20.0-40.0)
[2025-01-20 04:16] LABS: NT Pro B Type Natriuretic Pept 16729 pg/mL (0-450); Procalcitonin 0.33 ng/mL (0-0.5)
[2025-01-20 04:17] LABS: Cortisol Random 12.26 ug/dL (2.47-19.5)
[2025-01-20 07:23] LABS: Glucose Point of Care 248 mg/dL (70-110)
[2025-01-20] MEDS: nystatin 100,000 unit/mL UDC 5 mL 100000 UNIT PO ×3 (08:06→17:34)
[2025-01-20] MEDS: levETIRAcetam 500 MG/100 ML PREMIX 400 MG IV ×2 (08:06→19:52)
[2025-01-20] MEDS: ipratropium-albuterol 3 mL Neb INHALATION ×4 (08:38→20:49)
[2025-01-20] MEDS: budesonide 0.5 mg/2 mL Neb INHALATION ×2 (08:38→20:49)
--- NOTE | 2025-01-20 09:12 | PC.NURSE ---
pt awaken lowering precedex gtt , very agitated pulling o2 off and attempt to pull iv out, oral care done and attempt to give po medication chocking noted does not following any directions .
--- NOTE | 2025-01-20 09:47 | PC.NURSE ---
incontinent urine agitated when attempt to clean pinches staff and hits at time oral care done
[2025-01-20] MEDS: vancomycin 500 MG in sodium chloride 0.9% (plus) 100 ML 200 MG IV (10:17)
[2025-01-20] MEDS: dextrose 5% 1,000 ML 60 ML IV (10:18)
[2025-01-20] MEDS: micafungin 100 MG in sodium chloride 0.9% (plus) 100 ML IV (10:45)
[2025-01-20 12:01] LABS: Glucose Point of Care 273 mg/dL (70-110)
[2025-01-20] MEDS: insulin lispro 100 unit/1 mL SUBCUT (12:02)
[2025-01-20] MEDS: amiodarone 200 mg Tablet 400 MG PO (14:32)
[2025-01-20] MEDS: nicotine 14 mg Patch 1 PATCH TRANSDERMA (14:34)
--- NOTE | 2025-01-20 16:21 | P.PN_ITS ---
Subjective 2 Subjective: - Patient was seen this morning -No family members at bedside -Overnight afebrile, normotensive, on 3 L, -She continues to have episodes of agita tion this morning, she is on Precedex drip -Pupils are equal round reactive to ligh t -In her agitated state she does have goo d upper extremity strength, equal bilaterally -Sodium 149, creatinine down to 1.3 -She remains diffusely encephalopathic, when I called out her name, answers yes to her name, beyond this I was not able to get any other more significant information from her ? Her random cortisol this morning is 12.26, Pro-Ryne 0.33, CRP 44.7, - As her blood cultures are clear, urine cultures are clear no significant leukocytosis, remains afebrile, ongoing to stop antibiotic therapy -Question on meningitis, no nuchal rigid ity, Kernig sign negative, Bruschi sign negative -There is a concern for aseptic meningit is, I do have her on acyclovir, and antifungals for possible fungal infection -Her aspirin, Eliquis are on hold, since the 19 January if her mentation continues to not improve, we will consider lumbar puncture, spoke to radiology they would prefer to hold medication for 5 days, but given the acuity of the nature of patient's illness, they are willing to do it after 48 hours -There was attempts on performing MRI ye however patient despite receiving sedating medications remained agitated, could not perform study -Reviewed outpatient physicians notes in detail, reviewed oncologist note, there was mention of about a medication used for neuropathy?, Will have family members bring in all her medications -Other concerns would be possible top of the basilar syndrome, we will keep her flat, keep fluids going -Neurology consulted Vitals/I&O/Wt Last Vital Signs Temp 98 F 01/20/25 16:00 Pulse 84 01/20/25 16:00 Resp 20 H 01/20/25 16:00 BP 157/119 01/20/25 16:00 Pulse Ox 97 01/20/25 16:00 O2 Del Method Nasal Cannula 01/20/25 15:05 O2 Flow Rate 3 01/20/25 15:05 FiO2 30 01/12/25 08:00 01/20/25 01/20/25 01/20/25 06:59 14:59 22:59 Intake Total 351.069 / 2009.254 120 / 120 50 / 170 Output Total 100 / 100 Balance 351.9 / 2008.254 120 / 120 -50 / 70 Physical Exam 2 Const: COMMON NORMALS: no acute distress EXAM LIMITATIONS: altered mental status ORIENTATION/CONSCIOUSNESS: Yes awake and Yes confused; not oriented to person and not oriented to time Eye: COMMON NORMALS: Equal, round and reactive pupils present PUPIL: Yes Equal, round and reactive pupils present Resp: COMMON NORMALS: normal respiratory effort, No retractions, No use of accessory muscles and clear to auscultation bilaterally AUSCULTATION: clear to auscultation bilaterally Cardio: COMMON NORMALS: regular rate, regular rhythm, S1 normal heart sound present and S2 normal heart sound present RATE: regular rate RHYTHM: r egular rhythm HEART SOUNDS: S1 normal heart sound present and S2 normal heart sound present GI: COMMON NORMALS: Normal to inspection, nondistended, normoactive bowel sounds present and non-tender Extremity: COMMON NORMALS: no pedal edema Neuro: SENSORIUM/ORIENTATION: No oriented to person and No oriented to time Urinary Catheter Management: Matias: Cath Placed During This Visit: yes, but has since been removed by the nurse Reason for Continuing Indwelling Catheter: Accurate Measurement of Urinary Output in Critically Ill Patients Urinary Catheter Date of Insertion: 01/10/25 Urinary Catheter Time of Insertion: 15:08 Date Urinary Catheter Removed: 01/16/25 Time Urinary Catheter Discontinued: 12:30 Data 01/20/25 03:11 01/20/25 03:11 A&P Assessment and plan (1) Acute and chronic respiratory failure ([id number]): -Resolved -Multifactorial -From influenza, completed treatment -From aspiration pneumonia, completed IV antibiotics -From fluid overload, systolic CHF exacerbation resolved -COPD exacerbation, completed steroids -A-fib with RVR CONCLUSIONS Moderately increased left ventricular cavity size. Severely decreased left ventricular systolic function. Left ventricular ejection fraction is estimated at 30 %. Global left ventricular hypokinesis. Moderately increased left atrial size. Moderately thickened mitral valve. Mild mitral annular calcification. No mitral valve stenosis. Moderate-severe mitral valve regurgitation. Moderate aortic valve calcification. No aortic valve stenosis. Trace aortic valve regurgitation. Mild tricuspid valve regurgitation. (2) Atrial fibrillation with rapid ventricular response: p.o. amiodarone (3) Influenza: Tamiflu 30 mg daily, completed (4) Hypotension: Monitor (5) Acute kidney injury superimposed on CKD: Creatinine 1.3 -Monitor urine output, monitor creatinine (6) Acute on chronic anemia: Hemoglobin stable (7) Nicotine dependence, cigarettes, with unspecified nicotine-induced disorders: (8) Diabetes 1.5, managed as type 2: Insulin sliding scale (9) Acute encephalopathy: As below (10) Acute CHF: CONCLUSIONS Moderately increased left ventricular cavity size. Severely decreased left ventricular systolic function. Left ventricular ejection fraction is estimated at 30 %. Global left ventricular hypokinesis. Moderately increased left atrial size. Moderately thickened mitral valve. Mild mitral annular calcification. No mitral valve stenosis. Moderate-severe mitral valve regurgitation. Moderate aortic valve calcification. No aortic valve stenosis. Trace aortic valve regurgitation. Mild tricuspid valve regurgitation. There is no pericardial effusion. Stress test in April 2021 IMPRESSIONS 1. Abnormal myocardial perfusion imaging with small infarct noted in the apical inferior wall. No evidence of ischemia 2. LV systolic function is normal with EF of 59% -Aspirin, statin, Eliquis -Will need repeat stress testing and/or coronary angiography and cardiology evaluation at some point, once her respiratory status is improved (11) Aspiration pneumonia: - Resolved (12) Sepsis: - Resolved Qualifiers: Acute renal failure type: unspecified Sepsis acute organ dysfunction status: with acute organ dysfunction Sepsis type: sepsis due to unspecified organism Severe sepsis acute organ dysfunction type: acute renal failure S evere sepsis shock status: without septic shock Qualified Code(s): A41.9 - Sepsis, unspecified organism; R65.20 - Severe sepsis without septic shock; N17.9 - Acute kidney failure, unspecified (13) UTI (urinary tract infection): - As below (14) Uremia: Plan -Acute encephalopathy -Patient's mentation has slowly deteriorated -Generalized encephalopathy, episodes of agitation, -Etiology? -Component of emphysematous cystitis, however blood cultures so far unremarkable, she remains afebrile, on broad-spectrum antibiotic therapy, has not responded, stop IV antibiotics aztreonam, vancomycin -Potentially modification side effect? Decadron has been stopped -Potentially CVA? She does not have any focal neurologic deficits, her symptoms seem more global she is good strength in upper and lower extremities -Drug withdrawal patient is on her home medications, possible narcotic withdrawal? She has been receiving her narcotics since being hospitalized -Possible seizure? Potentially responded to Keppra continue Keppra 500 mg twice rachel -Possible uremia playing a role? Resolved, on IV fluids -ABG yesterday did not show any significant hypercarbia -Repeat head CT no acute findings -Follow blood culture, so far no growth -Follow urine culture, so far no growth -CT abdomen pelvis shows trace gas in the bladder wall, possible emphysematous cystitis -UA with evidence of cm UTI stop meropenem due to concerns for confusion associate with meropenem switched to aztreonam, added vancomycin, has not responded to antibiotics cultures have been unremarkable, stop antibiotics -Added micafungin for concerns for fungal infection, so far and no significant findings -Added acyclovir for possible viral meningitis -Will hold aspirin, Eliquis,01/19 will consider lumbar puncture in 48 hours based on clinical progress -Lactic acid within normal limits -Ammonia levels within normal limits -Add IV fluids as above, uremia improving, has not responded stop fluids -MRI brain ordered, attempted yesterday however patient easily becomes agitated it was difficult to perform -Tick panel, HSV, CMV -Will check acetaminophen levels WNL, salicylate level WNL , drug screen pending, ESR 2, ferritin 1115, haptoglobin 206, LDH 323, random cortisol 12.26 -Has noticed episodes of agitation, biting her own hand, biting her family members -Haldol, Ativan as needed for agitation -Precedex drip -Possible drug withdrawal? Narcotic withdrawal, patient's oxycodone IR 15 mg p.o. every 6 hours, she has been receiving it, last dose was on jan 19 Does have soft blood pressures, monitor - Hypokalemia, replace potassium -Uremia, improving -Hypoglycemia resolved Plan for today, PDMP PDMP Reviewed: Not Reviewed Attestations 2 Medical Necessity Statement*: Patient requires hospitalization for acute encephalopathy, neurology consulted, spoke to nephrology Diagnoses Acute and chronic respiratory failure ([id number]) J96.20 Atrial fibrillation with rapid ventricular response I48.91 Influenza J11.1 Hypotension I95.9 Acute kidney injury superimposed on CKD N17.9; N18.9 Acute on chronic anemia D64.9 Nicotine dependence, cigarettes, 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
[2025-01-20 17:39] LABS: Glucose Point of Care 119 mg/dL (70-110)
--- NOTE | 2025-01-20 17:55 | PC.NURSE ---
ramirez hernandez called back will bring in medication from home in am ,, also a lady called felisha called and said she was the only one to make decisions, explained no issues at this time restraints placed on pt earlier as attempting to wake pt and up she get agitated and starts scratching herself and attempt to bite did sit on side of bed with pt prior, no diffrence noted in mentation from laying flat to sitting up
--- NOTE | 2025-01-20 18:54 | P.PN_ITS ---
Subjective 2 Subjective: No significant change in mental status, patient continues to be confused Medications: Reviewed: Yes Vitals/I&O/Wt Last Vital Signs Temp 98 F 01/20/25 16:00 Pulse 84 01/20/25 16:00 Resp 20 H 01/20/25 16:00 BP 157/119 01/20/25 16:00 Pulse Ox 97 01/20/25 16:00 O2 Del Method Nasal Cannula 01/20/25 15:05 O2 Flow Rate 3 01/20/25 15:05 FiO2 30 01/12/25 08:00 01/20/25 01/20/25 01/20/25 06:59 14:59 22:59 Intake Total 351.2008.254 120 / 120 1565 / 1685 Output Total 100 / 100 Balance 351.2008.254 120 / 120 1465 / 1585 Physical Exam 2 Narrative: Patient is confused, no acute distress PERRLA S1-S2 regular rate and rhythm per report Clear per report No pedal edema Urinary Catheter Management: Matias: Cath Placed During This Visit: yes, but has since been removed by the nurse Reason for Continuing Indwelling Catheter: Accurate Measurement of Urinary Output in Critically Ill Patients Urinary Catheter Date of Insertion: 01/10/25 Urinary Catheter Time of Insertion: 15:08 Date Urinary Catheter Removed: 01/16/25 Time Urinary Catheter Discontinued: 12:30 Data 01/20/25 03:11 01/20/25 03:11 A&P Assessment and plan (1) Acute kidney injury superimposed on CKD: 1. 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 Patient volume status is stable and electrolytes are stable but patient has encephalopathy, etiology still unclear. Uremia is improving -BUN improving, Cr better , placed on D5W due to hypernatremia -No hydronephrosis on renal ultrasound 2. Encephalopathy, likely metabolic, 3. Acute on chronic respiratory failure in the setting of CHF with low ejection fraction and COPD, status post diuresis 4. Rapid A-fib 5. CHF with low ejection fraction of 30% 6. History of diabetes (2) Uremia: PDMP PDMP Reviewed: Not Reviewed Attestations 2 Medical Necessity Statement*: Per medicine team Coding Level of Care Code Acute Code for Chg Fwd Diagnoses Acute kidney injury superimposed on CKD N17.9; N18.9 Uremia N19
[2025-01-20 20:02] LABS: Glucose Point of Care 135 mg/dL (70-110)
--- NOTE | 2025-01-20 20:22 | PM.CONSULT ---
Providers/Reason For Consult Consulting Physician/Specialty*: Gurmeet Vega Reason for Consult*: Encephalopathy Attending Physician: Gurmeet Vega MD Primary Care Provider: Kofi Lopez MD History of Present Illness History of Present Illness Paloma Slater is a 84 year old woman with progressive abnormality of mental status in the last few days. She has multiple profound illnesses and has spent most of her time in there in the emergency department or in the hospital for the last several years. The only time I saw her was for critical care visit 04/26/2021 when stroke team was activated. She presented with right-sided weakness but her blood sugar was 60 and symptoms resolved when her blood sugar came up. She had known left carotid occlusion and right carotid stenosis 84%. She had right carotid endarterectomy in June 2022. She has been in the emergency department over into her physician's twice a month for the last 6 months. She presented to the emergency department 01/05/2025 complaining of dizziness, cough, myalgias and fatigue. She was hypercapnic, had positive influenza and anemia that was of concern for blood loss. Exacerbation of COPD, congestive heart failure, atrial fibrillation, diabetes, peripheral neuropathy, abdominal aortic aneurysm, chronic kidney disease, renal artery stenosis and ongoing cigarette addiction. Her blood pressure was only 88/46 or less and hemoglobin was 9.9 on Eliquis. Plans were made to send her home but a variety of things intervene. She had atrial fibs with RVR and more shortness of breath so Dr. Gurmeet Dominguez kept her in the hospital. He started her on glucose for a blood sugar of 80. We moved her to cardiac stepdown. By that afternoon she was agitated enough to require one-on-one sitter. Her urinalysis suggested infection. On the she was alert but had odd behaviors. She begged to go home. She was on meropenem and he thought maybe that was causing encephalopathy so we changed her antibiotics to vancomycin and aztreonam. CT scan of the head showed nothing acute. CT of the abdomen and pelvis showed possible emphysematous cystitis. He added micafungin for concerns for fungal infection. Nephrology was consulted for acute on chronic kidney failure because creatinine bounced up to 2.2. At night she was more confused. She was trying to take out her IV. We moved her to ICU again on 01/18. Because she was confused she gave her Keppra. He started her on acyclovir thinking maybe she had herpes encephalitis. There was no evidence of an on CAT scan. By this morning he had her on a Precedex drip. Creatinine down to 1.3. 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 Of course he tried to do an MRI scan but she was too agitated. Current medications were reviewed. Tonight she is agitated. Her next-door neighbor indicates that she has been very loud and it is hard to sleep in ICU because of her. The nurse acknowledges that that is true. The patient is encephalopathic, laying in her hospital bed with her close mostly askew and she is in a diaper that smells like she is having diarrhea. Review of Systems Narrative: She has not been febrile. Her hemoglobin today was 8.8. Apparently we do not know the source of her blood loss to date. Medications/Allergies Home Medications ?Medication ?Instructions ?Recorded ?Confirmed ?Last Taken ?Type flash glucose scanning reader #1 ea 03/04/22 01/05/25 Unknown Rx (FreeStyle Odell 14 Day Roma) flash glucose sensor (FreeStyle #2 ea 03/04/22 01/05/25 Unknown Rx Odell 14 Day Sensor kit) blood-glucose meter #1 ea 03/06/22 01/05/25 Unknown Rx pen needle, diabetic 32 gauge x #100 ea 04/12/22 01/05/25 Unknown Rx 5/32 (TechLITE Pen Needle) overnight oximetry #1 ea 12/17/22 01/05/25 Unknown Rx breast prosthesis bilateral and #1 ea 02/05/23 01/05/25 Unknown Rx bras x4 diphenhydramine HCl 25 mg capsule 25 mg PO BEDTIME PRN Allergy 02/19/23 01/05/25 Unknown History (Benadryl) Symptoms home oxygen 2l/m continuous #1 ea 06/04/23 01/05/25 Unknown Rx CPAP set to 6-16 with supplies #1 ea 09/15/23 01/05/25 Unknown Rx RSV - pre f3 #1 ea 10/09/23 01/05/25 Unknown Rx blood sugar diagnostic (Blood #120 ea 10/31/23 01/05/25 Unknown Rx Glucose Test strips) atorvastatin 80 mg tablet 80 mg PO BEDTIME #90 tabs 01/05/24 01/05/25 01/04/25 Rx amiodarone 200 mg tablet 200 mg PO QAM 02/06/24 01/05/25 01/04/25 History buspirone 5 mg tablet 5 mg PO BEDTIME PRN Anxiety 02/06/24 01/05/25 Unknown History multivitamin 1 tab PO DAILY 02/06/24 01/05/25 01/04/25 History Inogen portable oxygen device and #1 ea 02/19/24 01/05/25 Unknown Rx supplies budesonide 160 mcg-glycopyr 9 2 inh inhalation BID #10.7 grams 02/19/24 01/05/25 01/04/25 Rx mcg-formot 4.8 mcg/actuation HFA inhaler (Breztri [employer]) carvedilol 6.25 mg tablet 6.25 mg PO BID 07/14/24 01/05/25 01/04/25 History glipizide 5 mg tablet 5 mg PO DAILY 07/14/24 01/05/25 01/04/25 History loratadine 10 mg tablet 10 mg PO DAILY 07/14/24 01/05/25 01/04/25 History famotidine 20 mg tablet 20 mg PO BID #180 tabs 09/23/24 01/05/25 01/04/25 Rx apixaban 5 mg tablet (Eliquis) 5 mg PO Q12H #180 tabs 10/13/24 01/05/25 01/04/25 Rx lisinopril 2.5 mg tablet 2.5 mg PO DAILY #90 tabs 10/20/24 01/05/25 01/04/25 Rx montelukast 10 mg tablet 10 mg PO DAILY #90 tabs 10/20/24 01/05/25 01/04/25 Rx mupirocin 2 % topical ointment 1 applic topical BID PRN Skin 11/04/24 01/05/25 Unknown History Irritation torsemide 20 mg tablet 20 - 40 mg (1 - 2 x 20 mg) PO QAM 12/01/24 01/05/25 01/04/25 Rx #120 tabs metolazone 5 mg tablet 5 mg PO DAILY #30 tabs 12/14/24 01/05/25 01/04/25 Rx potassium chloride 10 mEq 10 meq PO DAILY #90 tabs 12/16/24 01/05/25 01/04/25 Rx tablet,extended release linezolid 600 mg tablet (Zyvox) 600 mg PO BID 6 days #12 tabs 12/25/24 01/05/25 01/04/25 Rx oxycodone 15 mg tablet 15 mg PO Q6H PRN pain 30 days #120 12/31/24 01/05/25 01/04/25 Rx tabs insulin glargine 100 unit/mL (3 14 unit SUBCUT QAM 01/05/25 01/05/25 01/04/25 History mL) subcutaneous pen (Lantus Solostar U-100 Insulin) Allergies Allergy/AdvReac Type Severity Reaction Status Date / Time adhesive tape Allergy Unknown Unknown Verified 12/26/24 14:55 bacitracin (From Neosporin Allergy Unknown Unknown Verified 12/26/24 14:55 ([id number])) codeine Allergy Unknown Unknown Verified 12/26/24 14:55 doxycycline Allergy Unknown Unknown Verified 12/26/24 14:55 neomycin (From Neosporin Allergy Unknown Unknown Verified 12/26/24 14:55 ([id number])) penicillamine Allergy Unknown Unknown Verified 12/26/24 14:55 Penicillins Allergy Unknown Unknown Verified 12/26/24 14:55 polymyxin B (From Neosporin Allergy Unknown Unknown Verified 12/26/24 14:55 ([id number])) prochlorperazine (From Allergy Unknown Unknown Verified 12/26/24 14:55 Compazine) Sulfa (Sulfonamide Allergy Unknown Unknown Verified 12/26/24 14:55 Antibiotics) diltiazem Allergy ALGY-Difficulty Verified 12/26/24 14:55 Breathing Current Medications Generic Name Dose Route Start Last Admin Trade Name Freq PRN Reason Stop Dose Admin Acetaminophen 650 mg 01/05/25 18:20 01/14/25 03:22 Acetaminophen 325 Mg Tablet PO 650 mg Q6H PRN Administration Mild/Mod Pain Or Temp >/= 101 Albuterol/Ipratropium 3 ml 01/05/25 20:00 01/20/25 15:06 Ipratropium-Albuterol 3 Ml Neb INHALATION 3 ml QID.RESPIRATORY MICHELE Administration Apixaban 2.5 mg 01/17/25 21:00 01/19/25 07:59 Apixaban 5 Mg Tablet PO 2.5 mg BID@0900,2100 MICHELE Administration Aspirin 81 mg 01/13/25 11:25 01/19/25 07:59 Aspirin 81 Mg Ec Tablet PO 81 mg DAILY MICHELE Administration Atorvastatin Calcium 80 mg 01/05/25 21:00 01/19/25 20:54 Atorvastatin 40 Mg Tablet PO Not Given BEDTIME MICHELE Bisacodyl 10 mg 01/13/25 16:05 01/20/25 11:24 Bisacodyl 5 Mg Tablet PO Not Given DAILY MICHELE Budesonide 0.5 mg 01/05/25 20:00 01/20/25 08:38 Budesonide 0.5 Mg/2 Ml Neb INHALATION 0.5 mg BID.RESPIRATORY MICHELE Administration Buspirone HCl 5 mg 01/05/25 18:39 01/16/25 19:17 Buspirone 10 Mg Tablet PO 5 mg BEDTIME PRN Administration Anxiety Famotidine 20 mg 01/05/25 18:20 01/20/25 17:32 Famotidine 20 Mg Tablet PO Not Given BID MICHELE Haloperidol Lactate 1 mg 01/17/25 15:39 01/19/25 16:22 Haloperidol Inj 5 Mg/Ml Inj 1 Ml IM 1 mg Q4H PRN Administration AGITATION Micafungin Sodium 100 mg/ 100 mls @ 100 mls/hr 01/17/25 10:00 01/20/25 16:22 Sodium Chloride IV Infused Q24H MICHELE Infusion Dexmedetomidine/Sodium Chloride 400 mcg in 100 mls @ 0 mls/hr 01/19/25 08:30 01/20/25 19:00 Precedex IV 0.2 mcg/kg/hr .Q0M MICHELE 3.65 mls/hr Titration Protocol Per Protocol Levetiracetam 500 mg in 100 mls @ 400 mls/hr 01/19/25 08:45 01/20/25 20:20 Keppra IV Infused Q12H MICHELE Infusion Acyclovir 750 mg/ Sodium 265 mls @ 270 mls/hr 01/19/25 12:00 01/20/25 16:22 Chloride IV Infused Q12H MICHELE Infusion Dextrose 1,000 mls @ 60 mls/hr 01/20/25 10:00 01/20/25 10:18 D5w IV 60 mls/hr .[id number] MICHELE Administration Insulin Human Lispro 0 unit 02/23/25 18:00 01/20/25 17:31 Insulin Lispro 100 Unit/1 Ml SUBCUT Not Given WM&BEDTIME MICHELE Protocol Lorazepam 0.5 mg 01/17/25 09:54 01/19/25 16:22 Lorazepam 2 Mg/Ml Inj 1 Ml IVP 0.5 mg Q4H PRN Administration ANXIETY Metoprolol Succinate 50 mg 01/09/25 12:00 01/20/25 11:25 Metoprolol Succinate Er (24 Hr) 25 Mg Tablet PO Not Given DAILY MICHELE Montelukast Sodium 10 mg 01/06/25 09:00 01/20/25 11:25 Montelukast Sodium 10 Mg Tablet PO Not Given DAILY MICHELE Nicotine 1 patch 01/06/25 14:30 01/20/25 14:34 Nicotine 14 Mg Patch TRANSDERMA 1 patch Q24H MICHELE Administration Nystatin 100,000 unit 01/08/25 13:00 01/20/25 17:34 Nystatin 100,000 Unit/Ml Udc 5 Ml PO 100,000 unit QID MICHELE Administration Ondansetron HCl 4 mg 01/05/25 18:20 01/13/25 09:13 Ondansetron 2 Mg/Ml Sdv 2 Ml IVP 4 mg Q8H PRN Administration vomiting, or N/V if npo Oxycodone HCl 15 mg 01/05/25 18:40 01/16/25 19:16 Oxycodone 5 Mg Ir Tab/Cap PO 15 mg Q6H PRN Administration pain Polyethylene Glycol 17 gm 01/14/25 09:00 01/20/25 11:26 Polyethylene Glycol 3350 Pkt 17 Gm PO Not Given DAILY MICHELE PFSH Acute PFSH: Medical History Heart failure with mildly reduced ejection fraction Nicotine dependence, cigarettes, with unspecified nicotine-induced disorders Bilateral breast cancer Asthma Anxiety Acute respiratory failure with hypoxia and hypercarbia CHF (congestive heart failure) COPD (chronic obstructive pulmonary disease) Respiratory failure Paroxysmal atrial fibrillation MYRA (generalized anxiety disorder) Hypersomnia Chronic anticoagulation Atrial fib/flutter, transient Osteoporosis History of COVID-12 Aug 2021 Pneumonia Chronic kidney disease Diabetic peripheral neuropathy Anemia Carotid artery disease B12 deficiency Chronic pain CVA (cerebral vascular accident) History of nonmelanoma skin cancer Atopic dermatitis Seasonal allergies Renal artery stenosis Descending thoracic aortic aneurysm AAA (abdominal aortic aneurysm) Status post stent graft repair Obesity HTN (hypertension) Dyslipidemia Diabetes 1.5, managed as type 2 Surgical History History of total mastectomy of left breast 04/[address] Vo at [place], [place] History of stent insertion of renal artery History of aortic aneurysm repair S/P mastectomy (08/2009) Right modified radical mastectomy S/P cholecystectomy S/P tonsillectomy S/P hysterectomy Family History Other Stroke Social History Smoking and tobacco/nicotine status: current every day tobacco/nicotine user cigarettes Packs smoked per day: 0.5 Years cigarettes smoked: 66 Alcohol intake: never Substance/Drug Use: never Vitals/I&O/Wt Last Vital Signs Temp 98 F 01/20/25 16:00 Pulse 83 01/20/25 20:00 Resp 21 H 01/20/25 20:00 BP 113/64 01/20/25 20:00 Pulse Ox 95 01/20/25 20:00 O2 Del Method Nasal Cannula 01/20/25 15:05 O2 Flow Rate 3 01/20/25 15:05 FiO2 30 01/12/25 08:00 01/20/25 01/20/25 01/20/25 06:59 14:59 22:59 Intake Total 351.2008.254 120 / 120 1722.366 / 1842.366 Output Total 100 / 100 Balance 351.2008.254 120 / 120 1622.366 / 1742.366 Physical Exam Narrative: She would say her name and otherwise was uncooperative. She was restless. Her speech was slurred. She was trying to peel her diaper off and moving around the bed. She would not follow commands because she was too agitated. She is moving all 4 extremities vigorously. Plantar response flexor bilaterally. Deep tendon reflexes 1+ throughout. There are no specific cerebellar signs. No tremor. HEENT: Normocephalic. Chest: Clear to auscultation Cardiovascular: S1 and S2 normal without murmur or gallop. Extremities: No edema. No rash. Urinary Catheter Management: Matias: Cath Placed During This Visit: yes, but has since been removed by the nurse Reason for Continuing Indwelling Catheter: Accurate Measurement of Urinary Output in Critically Ill Patients Urinary Catheter Date of Insertion: 01/10/25 Urinary Catheter Time of Insertion: 15:08 Date Urinary Catheter Removed: 01/16/25 Time Urinary Catheter Discontinued: 12:30 Data 01/20/25 03:11 01/20/25 03:11 Other data: CT head 01/18/2025 shows diffuse cortical and subcortical atrophy. CT abdomen and pelvis 01/05/2025 showing cardiomegaly, sigmoid diverticulosis and nothing remarkable. Repeat CT abdomen and pelvis 01/16/2025 trace of gas in the gallbladder wall and possible emphysematous cystitis. (Trace of air in the anterior bladder wall). Nothing else of remarkable. Follow-up ultrasound of the bladder 01/17 was negative. I see that she has had extensive antibody testing for CMV, HSV, Lyme antibody by Western blot, stat tick panel, stat aldosterone. She is being tested for C. difficile which is extremely appropriate. A&P Assessment and plan (1) Acute encephalopathy: She was doing well in the hospital and then became increasingly agitated and she wanted to go home and could not for variety of reasons. 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 She was not demented from what I can tell from her previous home health care coordinator notes. Nothing can be found in her brain with no sign of temporal lobe or frontal lobe edema to implicate herpes encephalitis and I am stopping her acyclovir. She has not had anything resembling a seizure and I am stopping her Keppra which could be contributing to her agitation. Start her on an antidepressant and try to get her to sleep through the night and I am hoping that a dose of Zyprexa will do that or I will need to repeat it. I have talked with the nurse. Further treatment depending upon results. (2) Heart failure with mildly reduced ejection fraction: (3) Carotid artery disease: Previous right carotid endarterectomy. Chronic left carotid occlusion. She has no focal findings to implicate a stroke. Qualifiers: Carotid artery disease type: stenosis Laterality: bilateral Qualified Code(s): I65.23 - Occlusion and stenosis of bilateral carotid arteries PDMP PDMP Reviewed: Not Reviewed Consult Attestations Medical Necessity Statement: Progressive increasing agitation and encephalopathy over the course of the last several days. She remains anemic and it is unclear what happened to her blood. Coding Level of Care Code 92700 Diagnoses Acute encephalopathy G93.40 Heart failure with mildly reduced ejection fraction I50.22 Bilateral carotid artery stenosis I65.23 Carotid artery disease type: stenosis Laterality: bilateral
[2025-01-20] MEDS: LORazepam 2 mg/mL INJ 1 mL 0.5 MG IVP (20:24)
[2025-01-20] MEDS: lanolin oint 7 gm 1 APPLIC TOPICAL (20:39)
[2025-01-20] MEDS: OLANZapine 5 mg ODT 10 MG PO (22:02)
[2025-01-20] MEDS: atorvastatin 40 mg Tablet 80 MG PO (22:03)
[2025-01-20] MEDS: dexmedeTOMIDine 0.9 % NaCL 400 MCG/100 ML PREMIX 7.29 MCG IV (23:49)
[2025-01-21] VITALS (30 sets, daily range): BP systolic 75–149; BP diastolic 47–105; PULSE 56–129; RESP 14–34; TEMP 36.1; O2SAT 90–100
[2025-01-21] MEDS: OLANZapine 10 mg VIAL IM (00:14)
[2025-01-21] MEDS: morphine 4 mg/mL SDV 1 mL 2 MG IVP (02:01)
--- NOTE | 2025-01-21 04:30 | PC.NURSE ---
Void Unable to accurately measure output. Patient soiled one brief.
[2025-01-21 04:35] LABS: Basophils % 0.1 %; Eosinophils # 0.2 10^3/uL (0.0-0.8); Hematocrit 26.9 % (36-47); Lymphocytes # 0.6 10^3/uL (0.8-4.8); Lymphocytes % 5.8 %; Mean Corpuscular HGB Conc 31.6 g/dL (30-55); Mean Corpuscular Hemoglobin 29.2 pg (27-33); Mean Corpuscular Volume 92.4 fl (85-98); Mean Platelet Volume 12.5 fL (7.4-10.4); Monocytes % 9.1 %; Neutrophils # 8.59 10^3/uL (1.8-7.7); Neutrophils % 82.7 %; Nucleated Red Blood Cells % 0 %; Platelet Count 149 10^3/cmm (157-399); Red Blood Count 2.91 10^6/uL (3.85-5.65); Red Cell Distribution Width 15.3 % (12.1-15.1); White Blood Count 10.39 10^3/uL (3.29-11.43)
[2025-01-21 05:03] LABS: Alanine Aminotransferase 20 U/L (0-33); Alkaline Phosphatase 96 U/L (35-105); Anion Gap 9.8 (5-19); Aspartate Amino Transferase 18 U/L (0-32); Blood Urea Nitrogen 33 mg/dL (8-23); Calcium 8.3 mg/dL (8.5-10.5); Carbon Dioxide 27 mmol/L (22-29); Chloride 113 mmol/L (98-107); Creatinine Clr Calc Pharmacy 41.5046; Globulin 1.8 g/dL (1.3-4.6); Glucose 147 mg/dL (65-115); Magnesium 2.4 mg/dL (1.7-2.3); Osmolality Calculated 314 mOsm/kg (285-295); Sodium 147 mmol/L (136-145); Total Bilirubin 2.3 mg/dL (0.15-1.2); Total Protein 4.8 g/dL (6.6-8.7)
[2025-01-21 05:05] LABS: Lactate (Lactic Acid level) 0.9 mmol/L (0.5-2.2)
[2025-01-21 05:09] LABS: Vancomycin Trough 10.3 ug/mL (10-15)
[2025-01-21 05:12] LABS: Cortisol Random 14.58 ug/dL (2.47-19.5)
[2025-01-21 05:15] LABS: NT Pro B Type Natriuretic Pept 15151 pg/mL (0-450); Procalcitonin 0.19 ng/mL (0-0.5)
[2025-01-21 05:28] LABS: Potassium 2.8 mmol/L (3.5-5.1)
[2025-01-21 05:29] LABS: C Reactive Protein 71.1 mg/L (0.0-4.9)
[2025-01-21] MEDS: lidocaine 1% 5 ML in potassium chloride premix 100 ML 52.5 ML IV ×2 (06:07→13:31)
[2025-01-21 07:34] LABS: Cytomegalovirus Antibody (IGG) >10.00 U/mL; Cytomegalovirus Antibody (IGM) <30.00 AU/mL
[2025-01-21] MEDS: famotidine 20 mg Tablet PO ×2 (08:11→18:16)
[2025-01-21] MEDS: polyethylene glycol 3350 Pkt 17 gm PO (08:11)
[2025-01-21] MEDS: amiodarone 200 mg Tablet PO ×2 (08:11→20:42)
[2025-01-21] MEDS: bisacodyl 5 mg Tablet 10 MG PO (08:11)
[2025-01-21] MEDS: montelukast sodium 10 mg Tablet PO (08:11)
[2025-01-21] MEDS: metoprolol succinate ER (24 HR) 25 mg Tablet 50 MG PO (08:11)
[2025-01-21] MEDS: citalopram 20 mg Tablet PO (08:11)
[2025-01-21 08:19] LABS: HSV 2 IGG Type Specific AB <0.90 index
[2025-01-21] MEDS: ipratropium-albuterol 3 mL Neb INHALATION ×4 (08:39→20:55)
[2025-01-21] MEDS: budesonide 0.5 mg/2 mL Neb INHALATION ×2 (08:39→20:55)
--- NOTE | 2025-01-21 09:10 | P.PN_ITS ---
Subjective 2 Subjective: She finally went to sleep last night after 20 mg of Zyprexa and a dose of morphine for her back pain. This morning she sat up on the edge of the bed and answered questions for the nurse but now she is asleep and she will not wake up for me. She is snoring peacefully. Medications: Medication Review Details: She gets 20 mg of Zyprexa last night. Vitals/I&O/Wt Last Vital Signs Temp 96.9 F L 01/21/25 06:22 Pulse 59 L 01/21/25 08:50 Resp 17 01/21/25 08:41 BP 118/55 01/21/25 04:00 Pulse Ox 99 01/21/25 08:41 O2 Del Method Nasal Cannula 01/21/25 08:41 O2 Flow Rate 3 01/21/25 08:41 FiO2 30 01/12/25 08:00 01/20/25 01/21/25 01/21/25 22:59 06:59 14:59 Intake Total 1729.666 / 1849.666 332.797 / 2182.463 Output Total 100 / 100 Balance 1629.666 / 1749.666 332.797 / 2082.463 Weight last 48 hrs Weight 160 lb Physical Exam 2 Narrative: She is moving all 4 extremities. She is snoring. I did not stimulate her sufficiently to wake her up. Urinary Catheter Management: Matias: Cath Placed During This Visit: yes, but has since been removed by the nurse Reason for Continuing Indwelling Catheter: Accurate Measurement of Urinary Output in Critically Ill Patients Urinary Catheter Date of Insertion: 01/10/25 Urinary Catheter Time of Insertion: 15:08 Date Urinary Catheter Removed: 01/16/25 Time Urinary Catheter Discontinued: 12:30 Data 01/21/25 03:57 01/21/25 03:57 A&P Assessment and plan (1) Acute encephalopathy: I would let her sleep today and see if a day of sleep will help straighten out her encephalopathy so she can go home soon. Nothing can be found to explain her encephalopathy, she had no focal findings to indicate stroke and her CT of the head was unremarkable. She may have C. difficile. Her CT head from the shows cortical and subcortical atrophy. She has never been described as demented on previous exams by multiple caregivers. I will reexamine her when she is more alert. PDMP PDMP Reviewed: Not Reviewed Attestations 2 Medical Necessity Statement*: Patient is profoundly confused, probable hospital psychosis versus side effect of antibiotics with profound encephalopathy. Coding Level of Care Code Acute Code for g Fwd Diagnoses Acute encephalopathy G93.40
--- NOTE | 2025-01-21 10:08 | P.PN_ITS ---
Subjective 2 Subjective: Remains confused Medications: Reviewed: Yes Vitals/I&O/Wt Last Vital Signs Temp 96.9 F L 01/21/25 06:22 Pulse 59 L 01/21/25 08:50 Resp 17 01/21/25 08:41 BP 118/55 01/21/25 04:00 Pulse Ox 99 01/21/25 08:41 O2 Del Method Nasal Cannula 01/21/25 08:41 O2 Flow Rate 3 01/21/25 08:41 FiO2 30 01/12/25 08:00 01/20/25 01/21/25 01/21/25 22:59 06:59 14:59 Intake Total 1729.666 / 1849.666 332.797 / 2182.463 Output Total 100 / 100 Balance 1629.666 / 1749.666 332.797 / 2082.463 Weight last 48 hrs Weight 72.575 kg Physical Exam 2 Narrative: no acute distress PERRLA S1-S2 regular rate and rhythm per report Clear per report No pedal edema Urinary Catheter Management: Matias: Cath Placed During This Visit: yes, but has since been removed by the nurse Reason for Continuing Indwelling Catheter: Accurate Measurement of Urinary Output in Critically Ill Patients Urinary Catheter Date of Insertion: 01/10/25 Urinary Catheter Time of Insertion: 15:08 Date Urinary Catheter Removed: 01/16/25 Time Urinary Catheter Discontinued: 12:30 Data 01/21/25 03:57 01/21/25 03:57 A&P Assessment and plan (1) Acute kidney injury superimposed on CKD: 1. 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 Patient volume status is stable and electrolytes are stable but patient has encephalopathy, etiology still unclear. Uremia is improving -BUN improving, Cr better , placed on D5W due to hypernatremia -No hydronephrosis on renal ultrasound 2. Encephalopathy, likely metabolic, 3. Acute on chronic respiratory failure in the setting of CHF with low ejection fraction and COPD, status post diuresis 4. Rapid A-fib 5. CHF with low ejection fraction of 30% 6. History of diabetes 7.Hypokalemia , need to replete (2) Uremia: PDMP PDMP Reviewed: Not Reviewed Attestations 2 Medical Necessity Statement*: per [facility] Coding Level of Care Code Acute Code for Chg Fwd Diagnoses Acute kidney injury superimposed on CKD N17.9; N18.9 Uremia N19
--- NOTE | 2025-01-21 11:15 | MRR_ITS ---
PROCEDURE INFORMATION: Exam: MR Head Without Contrast Exam date and time: 01/21/2025 5:21 PM Age: 84 years old Clinical indication: Altered mental status/memory loss; AMS; Additional info: AMS, PT bolstered w/ straps and still motion. TECHNIQUE: Imaging protocol: Magnetic resonance imaging of the head without contrast. COMPARISON: CT head wo con* [id number] 01/18/2025 4:02 PM FINDINGS: Brain: Periventricular and deep white matter T2 FLAIR hyperintensities compatible with sequela of moderate chronic microvascular ischemic changes. No evidence of diffusion restriction to suggest acute ischemia. No mass effect or midline shift. Cerebral ventricles: No hydrocephalus. Bones: Unremarkable. Paranasal sinuses: The visualized paranasal sinuses are well aerated. Mastoid air cells: The mastoids and middle ears are grossly clear without evidence of effusion. Orbital cavities: The visualized orbits are unremarkable. Soft tissues: Grossly unremarkable. MR/MR head wo con* [id number] IMPRESSION: 1. No evidence of acute intracranial abnormality.
[2025-01-21] MEDS: micafungin 100 MG in sodium chloride 0.9% (plus) 100 ML IV (12:08)
[2025-01-21 12:11] LABS: Glucose Point of Care 189 mg/dL (70-110)
[2025-01-21] MEDS: potassium chloride premix 100 ML 25 MEQ IV ×2 (12:11→16:32)
--- NOTE | 2025-01-21 12:18 | PC.SOCIAL ---
IMM Updated Provided pt a copy at bedside for family to review. Initialed, dated, & timed copy in chart.
[2025-01-21] MEDS: nystatin 100,000 unit/mL UDC 5 mL 100000 UNIT PO ×4 (12:22→20:42)
--- NOTE | 2025-01-21 13:00 | PC.NURSE ---
Pt currently has coban wrapped tightly around left AC and left FA. Coban removed. Lines flushed without difficulty.
[2025-01-21] MEDS: insulin lispro 100 unit/1 mL SUBCUT (13:22)
[2025-01-21] MEDS: dexmedeTOMIDine 0.9 % NaCL 400 MCG/100 ML PREMIX 7.29 MCG IV (15:03)
[2025-01-21] MEDS: nicotine 14 mg Patch 1 PATCH TRANSDERMA (16:32)
--- NOTE | 2025-01-21 16:46 | P.PN_ITS ---
Subjective 2 Subjective: patient was seen this morning, she is alert, she did take her medication, falls back sleep Vitals/I&O/Wt Last Vital Signs Temp 96.9 F L 01/21/25 06:22 Pulse 66 01/21/25 15:25 Resp 18 01/21/25 15:25 BP 104/51 01/21/25 13:00 Pulse Ox 96 01/21/25 15:25 O2 Del Method Nasal Cannula 01/21/25 15:25 O2 Flow Rate 2 01/21/25 15:25 FiO2 30 01/12/25 08:00 01/21/25 01/21/25 01/21/25 06:59 14:59 22:59 Intake Total 332.797 / 2182.463 107.61 / 107.61 100 / 207.61 Balance 332.797 / 2082.463 107.61 / 107.61 100 / 207.61 Weight last 48 hrs Weight 72.575 kg Physical Exam 2 Const: COMMON NORMALS: no acute distress ORIENTATION/CONSCIOUSNESS: Yes awake and Yes oriented to person; not oriented to place and not oriented to time Eye: COMMON NORMALS: Equal, round and reactive pupils present PUPIL: Yes Equal, round and reactive pupils present Resp: COMMON NORMALS: normal respiratory effort, No retractions, No use of accessory muscles and clear to auscultation bilaterally AUSCULTATION: clear to auscultation bilaterally Cardio: COMMON NORMALS: regular rate, regular rhythm, S1 normal heart sound present and S2 normal heart sound present RATE: regular rate RHYTHM: r egular rhythm HEART SOUNDS: S1 normal heart sound present and S2 normal heart sound present GI: COMMON NORMALS: Normal to inspection, nondistended, normoactive bowel sounds present and non-tender Extremity: COMMON NORMALS: no pedal edema Neuro: SENSORIUM/ORIENTATION: Yes oriented to person, No oriented to place and No oriented to time Urinary Catheter Management: Matias: Cath Placed During This Visit: yes, but has since been removed by the nurse Reason for Continuing Indwelling Catheter: Accurate Measurement of Urinary Output in Critically Ill Patients Urinary Catheter Date of Insertion: 01/10/25 Urinary Catheter Time of Insertion: 15:08 Date Urinary Catheter Removed: 01/16/25 Time Urinary Catheter Discontinued: 12:30 Data 01/21/25 03:57 01/21/25 03:57 Micro: Microbiology 01/21/25 13:15 Occult Blood (FIT) - Final Stool Routine Collection 01/16/25 13:31 Blood Culture - Final Blood NO GROWTH AFTER 5 DAYS 01/16/25 13:32 Blood Culture - Final Blood NO GROWTH AFTER 5 DAYS A&P Assessment and plan (1) Acute and chronic respiratory failure ([id number]): -Resolved -Multifactorial -From influenza, completed treatment -From aspiration pneumonia, completed IV antibiotics -From fluid overload, systolic CHF exacerbation resolved -COPD exacerbation, completed steroids -A-fib with RVR CONCLUSIONS Moderately increased left ventricular cavity size. Severely decreased left ventricular systolic function. Left ventricular ejection fraction is estimated at 30 %. Global left ventricular hypokinesis. Moderately increased left atrial size. Moderately thickened mitral valve. Mild mitral annular calcification. No mitral valve stenosis. Moderate-severe mitral valve regurgitation. Moderate aortic valve calcification. No aortic valve stenosis. Trace aortic valve regurgitation. Mild tricuspid valve regurgitation. (2) Atrial fibrillation with rapid ventricular response: p.o. amiodarone (3) Influenza: Tamiflu 30 mg daily, completed (4) Hypotension: Monitor (5) Acute kidney injury superimposed on CKD: Creatinine 1.3 -Monitor urine output, monitor creatinine (6) Acute on chronic anemia: Hemoglobin stable (7) Nicotine dependence, cigarettes, with unspecified nicotine-induced disorders: (8) Diabetes 1.5, managed as type 2: Insulin sliding scale (9) Acute encephalopathy: As below (10) Acute CHF: CONCLUSIONS Moderately increased left ventricular cavity size. Severely decreased left ventricular systolic function. Left ventricular ejection fraction is estimated at 30 %. Global left ventricular hypokinesis. Moderately increased left atrial size. Moderately thickened mitral valve. Mild mitral annular calcification. No mitral valve stenosis. Moderate-severe mitral valve regurgitation. Moderate aortic valve calcification. No aortic valve stenosis. Trace aortic valve regurgitation. Mild tricuspid valve regurgitation. There is no pericardial effusion. Stress test in April 2021 IMPRESSIONS 1. Abnormal myocardial perfusion imaging with small infarct noted in the apical inferior wall. No evidence of ischemia 2. LV systolic function is normal with EF of 59% -Aspirin, statin, Eliquis -Will need repeat stress testing and/or coronary angiography and cardiology evaluation at some point, once her respiratory status is improved (11) Aspiration pneumonia: - Resolved (12) Sepsis: - Resolved Qualifiers: Acute renal failure type: unspecified Sepsis acute organ dysfunction status: with acute organ dysfunction Sepsis type: sepsis due to unspecified organism Severe sepsis acute organ dysfunction type: acute renal failure S evere sepsis shock status: without septic shock Qualified Code(s): A41.9 - Sepsis, unspecified organism; R65.20 - Severe sepsis without septic shock; N17.9 - Acute kidney failure, unspecified (13) UTI (urinary tract infection): - As below (14) Uremia: Plan -Acute encephalopathy -Patient's mentation has improved -possible hospital psychosis -Generalized encephalopathy, episodes of agitation, -Etiology? -Component of emphysematous cystitis, however blood cultures so far unremarkable, she remains afebrile, on broad-spectrum antibiotic therapy, has not responded, stop IV antibiotics aztreonam, vancomycin -Potentially modification side effect? Decadron has been stopped -Potentially CVA? She does not have any focal neurologic deficits, her symptoms seem more global she is good strength in upper and lower extremities -Drug withdrawal patient is on her home medications, possible narcotic withdrawal? She has been receiving her narcotics since being hospitalized -Possible seizure? Potentially responded to Keppra continue Keppra 500 mg twice rachel -Possible uremia playing a role? Resolved, on IV fluids -ABG yesterday did not show any significant hypercarbia -Repeat head CT no acute findings -Follow blood culture, so far no growth -Follow urine culture, so far no growth -CT abdomen pelvis shows trace gas in the bladder wall, possible emphysematous cystitis -UA with evidence of cm UTI stop meropenem due to concerns for confusion associate with meropenem switched to aztreonam, added vancomycin, has not responded to antibiotics cultures have been unremarkable, stop antibiotics -Added micafungin for concerns for fungal infection, so far and no significant findings -Added acyclovir for possible viral meningitis -Will hold aspirin, Eliquis,01/19 will consider lumbar puncture in 48 hours based on clinical progress -Lactic acid within normal limits -Ammonia levels within normal limits -Add IV fluids as above, uremia improving, has not responded stop fluids -MRI brain ordered, attempted yesterday however patient easily becomes agitated it was difficult to perform -Tick panel, HSV, CMV -Will check acetaminophen levels WNL, salicylate level WNL , drug screen pending, ESR 2, ferritin 1115, haptoglobin 206, LDH 323, random cortisol 12.26 -Has noticed episodes of agitation, biting her own hand, biting her family members -Haldol, Ativan as needed for agitation -Precedex drip -Possible drug withdrawal? Narcotic withdrawal, patient's oxycodone IR 15 mg p.o. every 6 hours, she has been receiving it, last dose was on jan 19 Does have soft blood pressures, monitor - Hypokalemia, replace potassium -Uremia, improving -Hypoglycemia resolved Plan for today, PDMP PDMP Reviewed: Last Reviewed 01/20/25 16:43 by Gurmeet Vega MD Attestations 2 Medical Necessity Statement*: plan today will allow patient to rest, zyprexa, replace potassium Diagnoses Acute and chronic respiratory failure ([id number]) J96.20 Atrial fibrillation with rapid ventricular response I48.91 Influenza J11.1 Hypotension I95.9 Acute kidney injury superimposed on CKD N17.9; N18.9 Acute on chronic anemia D64.9 Nicotine dependence, cigarettes, 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
--- NOTE | 2025-01-21 17:00 | PC.NURSE ---
Pt continues pulling at IV lines even while restrained. Attempted to reorient pt unsuccessfully. Will continue to monitor.
--- NOTE | 2025-01-21 17:44 | PC.OT ---
OT treatment attempted with stating to hold pt; will attempt again at later time.
[2025-01-21 18:39] LABS: Glucose Point of Care 133 mg/dL (70-110)
[2025-01-21] MEDS: atorvastatin 40 mg Tablet 80 MG PO (20:42)
[2025-01-21] MEDS: OLANZapine 5 mg ODT 10 MG PO (20:42)
[2025-01-21 21:01] LABS: Glucose Point of Care 132 mg/dL (70-110)
[2025-01-21 22:58] LABS: C.Diff PCR (Lab) NEGATIVE (Negative)
[2025-01-22] VITALS (32 sets, daily range): BP systolic 67–126; BP diastolic 37–89; PULSE 68–185; RESP 14–33; TEMP 36–36.6; O2SAT 92–99
[2025-01-22 03:40] LABS: Lyme AB Screen <0.90 index
[2025-01-22 05:45] LABS: Eosinophils # 0.2 10^3/uL (0.0-0.8); Eosinophils % 2.1 %; Hematocrit 25.5 % (36-47); Lymphocytes # 0.6 10^3/uL (0.8-4.8); Lymphocytes % 7.8 %; Mean Corpuscular HGB Conc 31.4 g/dL (30-55); Mean Corpuscular Volume 92.4 fl (85-98); Mean Platelet Volume 12.7 fL (7.4-10.4); Monocytes # 0.9 10^3/uL (0.2-0.9); Monocytes % 11.2 %; Neutrophils # 6.01 10^3/uL (1.8-7.7); Neutrophils % 78.6 %; Nucleated Red Blood Cells % 0 %; Platelet Count 154 10^3/cmm (157-399); Red Blood Count 2.76 10^6/uL (3.85-5.65); Red Cell Distribution Width 15.8 % (12.1-15.1); White Blood Count 7.65 10^3/uL (3.29-11.43)
[2025-01-22 06:18] LABS: Vancomycin Trough 8.7 ug/mL (10-15)
[2025-01-22 06:22] LABS: Alanine Aminotransferase 19 U/L (0-33); Albumin Level 2.9 g/dL (3.5-5.2); Alkaline Phosphatase 95 U/L (35-105); Anion Gap 11.2 (5-19); Aspartate Amino Transferase 16 U/L (0-32); Blood Urea Nitrogen 28 mg/dL (8-23); Calcium 8.4 mg/dL (8.5-10.5); Carbon Dioxide 26 mmol/L (22-29); Chloride 117 mmol/L (98-107); Creatinine Clr Calc Pharmacy 41.4052; Globulin 1.8 g/dL (1.3-4.6); Glucose 146 mg/dL (65-115); Magnesium 2.4 mg/dL (1.7-2.3); Osmolality Calculated 318 mOsm/kg (285-295); Phosphorus 2.2 mg/dL (2.5-4.5); Potassium 4.2 mmol/L (3.5-5.1); Sodium 150 mmol/L (136-145); Total Bilirubin 2.3 mg/dL (0.15-1.2); Total Protein 4.7 g/dL (6.6-8.7)
[2025-01-22 06:41] LABS: Cortisol Random 13.88 ug/dL (2.47-19.5)
[2025-01-22 07:45] LABS: Glucose Point of Care 158 mg/dL (70-110)
[2025-01-22] MEDS: bisacodyl 5 mg Tablet 10 MG PO (08:23)
[2025-01-22] MEDS: insulin lispro 100 unit/1 mL SUBCUT ×2 (08:23→12:49)
[2025-01-22] MEDS: famotidine 20 mg Tablet PO ×2 (08:23→17:53)
[2025-01-22] MEDS: montelukast sodium 10 mg Tablet PO (08:23)
[2025-01-22] MEDS: amiodarone 200 mg Tablet PO ×2 (08:23→20:48)
[2025-01-22] MEDS: citalopram 20 mg Tablet PO (08:23)
[2025-01-22] MEDS: metoprolol succinate ER (24 HR) 25 mg Tablet 50 MG PO (08:23)
[2025-01-22] MEDS: polyethylene glycol 3350 Pkt 17 gm PO (08:24)
[2025-01-22] MEDS: nystatin 100,000 unit/mL UDC 5 mL 100000 UNIT PO ×4 (08:24→20:48)
[2025-01-22 09:42] LABS: Lactic Sepsis W/Reflex 1.6 mmol/L (0.5-2.2)
[2025-01-22] MEDS: micafungin 100 MG in sodium chloride 0.9% (plus) 100 ML IV (10:31)
[2025-01-22 10:35] LABS: Amphetamine negative; Barbiturates negative; Benzodiazepines negative; Cocaine Metabolites negative; Marijuana(Tetrahydrocannabino) negative; Opiates negative; PCP (Phencyclidine) negative
[2025-01-22] MEDS: ipratropium-albuterol 3 mL Neb INHALATION ×3 (11:18→20:30)
[2025-01-22 12:14] LABS: Glucose Point of Care 164 mg/dL (70-110)
[2025-01-22] MEDS: dexmedeTOMIDine 0.9 % NaCL 400 MCG/100 ML PREMIX IV (12:49)
--- NOTE | 2025-01-22 14:33 | P.PN_ITS ---
Subjective 2 Subjective: Patient is Aox1. She is on a precedex drip. Vitals/I&O/Wt Last Vital Signs Temp 97.9 F 01/22/25 07:00 Pulse 75 01/22/25 12:00 Resp 33 H 01/22/25 12:00 BP 96/64 01/22/25 12:00 Pulse Ox 94 01/22/25 12:00 O2 Del Method Nasal Cannula 01/22/25 12:00 O2 Flow Rate 2 01/22/25 12:00 FiO2 30 01/12/25 08:00 01/21/25 01/22/25 01/22/25 22:59 06:59 14:59 Intake Total 863.796 / 971.406 322.354 / 1293.760 253.256 / 253.256 Output Total 250 / 250 Balance 613.796 / 721.406 322.354 / 1043.760 253.256 / 253.256 Weight last 48 hrs Weight 72.575 kg Physical Exam 2 Const: COMMON NORMALS: no acute distress EXAM LIMITATIONS: altered mental status ORIENTATION/CONSCIOUSNESS: Yes awake and Yes oriented to person HENMT: COMMON NORMALS: normocephalic HEAD & SCALP: normocephalic Eye: COMMON NORMALS: EOMs intact bilaterally and no scleral icterus Neck/C-Spine: COMMON NORMALS: no JVD Resp: COMMON NORMALS: normal respiratory effort and clear to auscultation bilaterally AUSCULTATION: clear to auscultation bilaterally Cardio: COMMON NORMALS: no JVD, regular rate, regular rhythm and S1 normal heart sound present JUGULAR VENOUS DISTENTION: no JVD RATE: regular rate RHYTHM: regular rhythm HEART SOUNDS: S1 normal heart sound present GI: COMMON NORMALS: Soft to palpation and non-tender PALPATION: Yes Soft to palpation Extremity: COMMON NORMALS: no clubbing, cyanosis or edema Neuro: SENSORIUM/ORIENTATION: Yes oriented to person Skin: COMMON NORMALS: no rashes or lesions noted GENERAL SKIN EXAM: no rashes or lesions noted Urinary Catheter Management: Matias: Cath Placed During This Visit: yes, but has since been removed by the nurse Reason for Continuing Indwelling Catheter: Accurate Measurement of Urinary Output in Critically Ill Patients Urinary Catheter Date of Insertion: 01/10/25 Urinary Catheter Time of Insertion: 15:08 Date Urinary Catheter Removed: 02/23/25 Time Urinary Catheter Discontinued: 12:30 Data 01/22/25 04:43 01/22/25 04:43 Micro: Microbiology 01/21/25 13:15 Occult Blood (FIT) - Final Stool Routine Collection 01/16/25 13:31 Blood Culture - Final Blood NO GROWTH AFTER 5 DAYS 01/16/25 13:32 Blood Culture - Final Blood NO GROWTH AFTER 5 DAYS A&P Assessment and plan (1) Acute kidney injury superimposed on CKD: 1. hypernatremia- i recommend resuming hypotonic ivf ( d5w) 2. 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 Patient's volume status is stable but she still has encephalopathy, etiology still unclear. 3. Encephalopathy- likely metabolic, 4. Acute on chronic respiratory failure- in the setting of CHF with low ejection fraction and COPD, status post diuresis 5. Rapid A-fib- hr is controlled 6. CHF with low ejection fraction of 30% 7. History of diabetes 8. .Hypokalemia , need to replete Plan 1. hypernatremia- i recommend resuming hypotonic ivf ( d5w) 2. 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 Patient's volume status is stable but she still has encephalopathy, etiology still unclear. 3. Encephalopathy- likely metabolic, 4. Acute on chronic respiratory failure- in the setting of CHF with low ejection fraction and COPD, status post diuresis 5. Rapid A-fib- hr is controlled 6. CHF with low ejection fraction of 30% 7. History of diabetes 8. .Hypokalemia , need to replete PDMP PDMP Reviewed: Not Reviewed Attestations 2 Medical Necessity Statement*: hypernatremia, Time Spent in Patient Care: 25 minutes Coding Level of Care Code Acute Code for Chg Fwd Diagnoses Acute kidney injury superimposed on CKD N17.9; N18.9
--- NOTE | 2025-01-22 14:51 | P.PN_ITS ---
Subjective 2 Subjective: - Patient was seen this morning, -She is sitting up beside the bed with n ernesto staff -She is alert to person, not to place, n ot to time she recognizes me as her physician -She has had episodes of agitation durin g the night but she is more alert awake compared to the last few days -Afebrile overnight, normotensive -Nursing staff report hallucinations, sh juli thinks that her is alive, but is able to correct herself that he is , Vitals/I&O/Wt Last Vital Signs Temp 97.9 F 01/22/25 07:00 Pulse 75 01/22/25 12:00 Resp 33 H 01/22/25 12:00 BP 96/64 01/22/25 12:00 Pulse Ox 94 01/22/25 12:00 O2 Del Method Nasal Cannula 01/22/25 12:00 O2 Flow Rate 2 01/22/25 12:00 FiO2 30 01/12/25 08:00 01/21/25 01/22/25 01/22/25 22:59 06:59 14:59 Intake Total 863.796 / 971.406 322.354 / 1293.760 253.256 / 253.256 Output Total 250 / 250 Balance 613.796 / 721.406 322.354 / 1043.760 253.256 / 253.256 Weight last 48 hrs Weight 72.575 kg Physical Exam 2 Const: COMMON NORMALS: no acute distress EXAM LIMITATIONS: altered mental status Eye: COMMON NORMALS: Equal, round and reactive pupils present PUPIL: Yes Equal, round and reactive pupils present Resp: COMMON NORMALS: normal respiratory effort, No retractions, No use of accessory muscles and clear to auscultation bilaterally AUSCULTATION: clear to auscultation bilaterally Cardio: COMMON NORMALS: regular rate, regular rhythm, S1 normal heart sound present and S2 normal heart sound present RATE: regular rate RHYTHM: r egular rhythm HEART SOUNDS: S1 normal heart sound present and S2 normal heart sound present GI: COMMON NORMALS: Normal to inspection, nondistended, normoactive bowel sounds present and non-tender Extremity: COMMON NORMALS: no pedal edema Neuro: OTHER: Able to follow some neurologic testing able to squeeze my fingers, move her feet, no facial droop no slurring words, pupils equal round reactive to light she does easily become agitated Urinary Catheter Management: Matias: Cath Placed During This Visit: yes, but has since been removed by the nurse Reason for Continuing Indwelling Catheter: Accurate Measurement of Urinary Output in Critically Ill Patients Urinary Catheter Date of Insertion: 01/10/25 Urinary Catheter Time of Insertion: 15:08 Date Urinary Catheter Removed: 01/16/25 Time Urinary Catheter Discontinued: 12:30 Data 01/22/25 04:43 01/22/25 04:43 Micro: Microbiology 01/21/25 13:15 Occult Blood (FIT) - Final Stool Routine Collection 01/16/25 13:31 Blood Culture - Final Blood NO GROWTH AFTER 5 DAYS 01/16/25 13:32 Blood Culture - Final Blood NO GROWTH AFTER 5 DAYS A&P Assessment and plan (1) Acute and chronic respiratory failure ([id number]): -Resolved -Multifactorial -From influenza, completed treatment -From aspiration pneumonia, completed IV antibiotics -From fluid overload, systolic CHF exacerbation resolved -COPD exacerbation, completed steroids -A-fib with RVR CONCLUSIONS Moderately increased left ventricular cavity size. Severely decreased left ventricular systolic function. Left ventricular ejection fraction is estimated at 30 %. Global left ventricular hypokinesis. Moderately increased left atrial size. Moderately thickened mitral valve. Mild mitral annular calcification. No mitral valve stenosis. Moderate-severe mitral valve regurgitation. Moderate aortic valve calcification. No aortic valve stenosis. Trace aortic valve regurgitation. Mild tricuspid valve regurgitation. (2) Atrial fibrillation with rapid ventricular response: p.o. amiodarone (3) Influenza: Tamiflu 30 mg daily, completed (4) Hypotension: Monitor (5) Acute kidney injury superimposed on CKD: Creatinine 1.3 -Monitor urine output, monitor creatinine (6) Acute on chronic anemia: Hemoglobin stable (7) Nicotine dependence, cigarettes, with unspecified nicotine-induced disorders: (8) Diabetes 1.5, managed as type 2: Insulin sliding scale (9) Acute encephalopathy: As below (10) Acute CHF: CONCLUSIONS Moderately increased left ventricular cavity size. Severely decreased left ventricular systolic function. Left ventricular ejection fraction is estimated at 30 %. Global left ventricular hypokinesis. Moderately increased left atrial size. Moderately thickened mitral valve. Mild mitral annular calcification. No mitral valve stenosis. Moderate-severe mitral valve regurgitation. Moderate aortic valve calcification. No aortic valve stenosis. Trace aortic valve regurgitation. Mild tricuspid valve regurgitation. There is no pericardial effusion. Stress test in April 2021 IMPRESSIONS 1. Abnormal myocardial perfusion imaging with small infarct noted in the apical inferior wall. No evidence of ischemia 2. LV systolic function is normal with EF of 59% -Aspirin, statin, Eliquis -Will need repeat stress testing and/or coronary angiography and cardiology evaluation at some point, once her respiratory status is improved (11) Aspiration pneumonia: - Resolved (12) Sepsis: - Resolved Qualifiers: Acute renal failure type: unspecified Sepsis acute organ dysfunction status: with acute organ dysfunction Sepsis type: sepsis due to unspecified organism Severe sepsis acute organ dysfunction type: acute renal failure S evere sepsis shock status: without septic shock Qualified Code(s): A41.9 - Sepsis, unspecified organism; R65.20 - Severe sepsis without septic shock; N17.9 - Acute kidney failure, unspecified (13) UTI (urinary tract infection): - As below (14) Uremia: Plan -Acute encephalopathy -Patient's mentation has improved, continues to have episodes of altered mental status at times -possible hospital psychosis -Generalized encephalopathy, episodes of agitation, -Etiology? -Component of emphysematous cystitis, however blood cultures so far unremarkable, she remains afebrile, on broad-spectrum antibiotic therapy, has not responded, stop IV antibiotics aztreonam, vancomycin -Potentially modification side effect? Decadron has been stopped -Potentially CVA? She does not have any focal neurologic deficits, her symptoms seem more global she is good strength in upper and lower extremities -Drug withdrawal patient is on her home medications, possible narcotic withdrawal? She has been receiving her narcotics since being hospitalized -Possible seizure? Potentially responded to Keppra continue Keppra 500 mg twice rachel -Possible uremia playing a role? Resolved, on IV fluids -ABG yesterday did not show any significant hypercarbia -Repeat head CT no acute findings -Follow blood culture, so far no growth -Follow urine culture, so far no growth -CT abdomen pelvis shows trace gas in the bladder wall, possible emphysematous cystitis -UA with evidence of cm UTI stop meropenem due to concerns for confusion associate with meropenem switched to aztreonam, added vancomycin, has not responded to antibiotics cultures have been unremarkable, stop antibiotics -Added micafungin for concerns for fungal infection, so far and no significant findings -Added acyclovir for possible viral meningitis -Will hold aspirin, Eliquis,01/19 will consider lumbar puncture in 48 hours based on clinical progress -Lactic acid within normal limits -Ammonia levels within normal limits -MRI brain within normal limits -Tick panel, HSV IgG within normal limits, CMV -Will check acetaminophen levels WNL, salicylate level WNL , drug screen pending, ESR 2, ferritin 1115, haptoglobin 206, LDH 323, random cortisol 12.26 -Has noticed episodes of agitation, biting her own hand, biting her family members -Haldol, Ativan as needed for agitation -Precedex drip -Possible drug withdrawal? Narcotic withdrawal, patient's oxycodone IR 15 mg p.o. every 6 hours, she has been receiving it, last dose was on jan 19 Hypernatremia due to poor appetite, will continue D5 water today monitor serum sodium every 6 hours Does have soft blood pressures, monitor - Hypokalemia, replace potassium -Uremia, improving -Hypoglycemia resolved Plan for today, PDMP PDMP Reviewed: Last Reviewed 01/20/25 16:43 by Gurmeet Vega MD Attestations 2 Medical Necessity Statement*: Patient requires hospitalization for altered mental status, hypernatremia Diagnoses Acute and chronic respiratory failure ([id number]) J96.20 Atrial fibrillation with rapid ventricular response I48.91 Influenza J11.1 Hypotension I95.9 Acute kidney injury superimposed on CKD N17.9; N18.9 Acute on chronic anemia D64.9 Nicotine dependence, cigarettes, 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
[2025-01-22] MEDS: nicotine 14 mg Patch 1 PATCH TRANSDERMA (15:34)
[2025-01-22] MEDS: dextrose 5% 1,000 ML 60 ML IV (15:35)
[2025-01-22] MEDS: OLANZapine 5 mg ODT PO (15:35)
[2025-01-22 17:44] LABS: Glucose Point of Care 84 mg/dL (70-110)
[2025-01-22 19:10] LABS: Sodium 150 mmol/L (136-145)
[2025-01-22 20:02] LABS: Glucose Point of Care 96 mg/dL (70-110)
[2025-01-22] MEDS: budesonide 0.5 mg/2 mL Neb INHALATION (20:30)
[2025-01-22] MEDS: atorvastatin 40 mg Tablet 80 MG PO (20:48)
[2025-01-22] MEDS: OLANZapine 5 mg ODT 10 MG PO (20:48)
[2025-01-23] VITALS (31 sets, daily range): BP systolic 82–129; BP diastolic 39–83; PULSE 65–149; RESP 12–26; TEMP 36.4–36.9; O2SAT 85–100
[2025-01-23 00:43] LABS: Sodium 148 mmol/L (136-145)
[2025-01-23 06:10] LABS: Eosinophils # 0.3 10^3/uL (0.0-0.8); Eosinophils % 3.2 %; Lymphocytes # 0.6 10^3/uL (0.8-4.8); Lymphocytes % 6.4 %; Mean Corpuscular HGB Conc 31.6 g/dL (30-55); Mean Corpuscular Hemoglobin 29.3 pg (27-33); Mean Corpuscular Volume 92.6 fl (85-98); Mean Platelet Volume 12.1 fL (7.4-10.4); Monocytes # 0.8 10^3/uL (0.2-0.9); Monocytes % 8.7 %; Neutrophils # 7.03 10^3/uL (1.8-7.7); Neutrophils % 81.4 %; Nucleated Red Blood Cells % 0 %; Platelet Count 159 10^3/cmm (157-399); Red Cell Distribution Width 15.9 % (12.1-15.1); White Blood Count 8.64 10^3/uL (3.29-11.43)
[2025-01-23 06:33] LABS: Alanine Aminotransferase 21 U/L (0-33); Albumin Level 2.9 g/dL (3.5-5.2); Alkaline Phosphatase 112 U/L (35-105); Anion Gap 12.9 (5-19); Aspartate Amino Transferase 32 U/L (0-32); Blood Urea Nitrogen 25 mg/dL (8-23); Calcium 8.6 mg/dL (8.5-10.5); Carbon Dioxide 24 mmol/L (22-29); Chloride 118 mmol/L (98-107); Globulin 2.6 g/dL (1.3-4.6); Glucose 181 mg/dL (65-115); Magnesium 2.3 mg/dL (1.7-2.3); Osmolality Calculated 321 mOsm/kg (285-295); Phosphorus 1.9 mg/dL (2.5-4.5); Potassium 3.9 mmol/L (3.5-5.1); Sodium 151 mmol/L (136-145); Total Bilirubin 2.2 mg/dL (0.15-1.2); Total Protein 5.5 g/dL (6.6-8.7)
[2025-01-23 06:35] LABS: Sodium 151 mmol/L (136-145)
[2025-01-23 07:36] LABS: Glucose Point of Care 161 mg/dL (70-110)
[2025-01-23] MEDS: dextrose 5% 1,000 ML 60 ML IV (07:58)
[2025-01-23] MEDS: insulin lispro 100 unit/1 mL SUBCUT ×4 (08:00→21:27)
[2025-01-23] MEDS: budesonide 0.5 mg/2 mL Neb INHALATION ×2 (08:16→21:32)
[2025-01-23] MEDS: ipratropium-albuterol 3 mL Neb INHALATION ×4 (08:16→21:32)
[2025-01-23] MEDS: nystatin 100,000 unit/mL UDC 5 mL 100000 UNIT PO ×4 (08:31→21:01)
[2025-01-23] MEDS: famotidine 20 mg Tablet PO ×2 (08:31→17:18)
[2025-01-23] MEDS: montelukast sodium 10 mg Tablet PO (08:31)
[2025-01-23] MEDS: metoprolol succinate ER (24 HR) 25 mg Tablet 50 MG PO (08:31)
[2025-01-23] MEDS: amiodarone 200 mg Tablet PO (08:31)
[2025-01-23] MEDS: citalopram 20 mg Tablet PO (08:31)
--- NOTE | 2025-01-23 09:51 | PC.NURSE ---
Dr. Vega at bedside speaking with patient, patient requests to use bedside commode. Patient assisted by 2 RN to bedside commode, 100% assist, patient unable to ambulate due to weakness. Patient returned to bed, began pulling at IV and scratching at optifoam dressing despite verbal intervention. Wrist restraints reapplied.
[2025-01-23 11:02] LABS: Glucose Point of Care 156 mg/dL (70-110)
--- NOTE | 2025-01-23 11:31 | PC.NURSE ---
This nurse took report from YOVANI Auguste in ICU at 1132.
--- NOTE | 2025-01-23 11:47 | PC.NURSE ---
Patient transferred to room 263 via bed on 2L NC. Patient belongings at bedside. Patient had no complaints of pain and no requests other than to go home. Patient oriented to new room and call light use. Nurse Will at beside and in charge of paper chart. Bed alarm activated. Family updated via telephone.
[2025-01-23 12:19] LABS: Sodium 149 mmol/L (136-145)
[2025-01-23] MEDS: nicotine 14 mg Patch 1 PATCH TRANSDERMA (12:44)
--- NOTE | 2025-01-23 13:19 | P.PN_ITS ---
Subjective 2 Subjective: Patient is confused on restraints. She is on 2Lo2 Medications: Reviewed: Yes Vitals/I&O/Wt Last Vital Signs Temp 97.8 F 01/23/25 12:00 Pulse 65 01/23/25 12:00 Resp 18 01/23/25 12:00 BP 115/78 01/23/25 12:00 Pulse Ox 98 01/23/25 12:00 O2 Del Method Nasal Cannula 01/23/25 12:00 O2 Flow Rate 2 01/23/25 12:39 FiO2 30 01/12/25 08:00 01/22/25 01/23/25 01/23/25 22:59 06:59 14:59 Intake Total 85.854 / 339.292 23.188 / 070.630 9716 / 1823 Balance 85.854 / 339.292 23.188 / 083.225 8637 / 182 Physical Exam 2 Const: COMMON NORMALS: no acute distress EXAM LIMITATIONS: altered mental status ORIENTATION/CONSCIOUSNESS: Yes confused HENMT: COMMON NORMALS: normocephalic HEAD & SCALP: normocephalic Eye: COMMON NORMALS: EOMs intact bilaterally and no scleral icterus Neck/C-Spine: COMMON NORMALS: no JVD Resp: COMMON NORMALS: normal respiratory effort and clear to auscultation bilaterally AUSCULTATION: clear to auscultation bilaterally Cardio: COMMON NORMALS: no JVD, regular rate, regular rhythm, S1 normal heart sound present and S2 normal heart sound present RATE: regular rate RHYTHM: regular rhythm HEART SOUNDS: S1 normal heart sound present and S2 normal heart sound present GI: COMMON NORMALS: Soft to palpation and non-tender PALPATION: Yes Soft to palpation Extremity: COMMON NORMALS: no pedal edema Neuro: COMMON NORMALS: moves all extremities SENSORIUM/ORIENTATION: Yes fluctuating sensorium Psych: ATTITUDE: Yes agitated Skin: COMMON NORMALS: no rashes or lesions noted GENERAL SKIN EXAM: no rashes or lesions noted Urinary Catheter Management: Matias: Cath Placed During This Visit: yes, but has since been removed by the nurse Reason for Continuing Indwelling Catheter: Accurate Measurement of Urinary Output in Critically Ill Patients Urinary Catheter Date of Insertion: 01/10/25 Urinary Catheter Time of Insertion: 15:08 Date Urinary Catheter Removed: 01/16/25 Time Urinary Catheter Discontinued: 12:30 Data 01/23/25 05:56 01/23/25 11:56 A&P Assessment and plan (1) Acute kidney injury superimposed on CKD: 1. hypernatremia- i recommend increasing hypotonic ivf ( d5w) 2. 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 Patient's volume status is stable but she still has encephalopathy, etiology still unclear. 3. Encephalopathy- likely metabolic, 4. Acute on chronic respiratory failure- in the setting of CHF with low ejection fraction and COPD, status post diuresis 5. Rapid A-fib- hr is controlled 6. CHF with low ejection fraction of 30% 7. History of diabetes 8. Hypokalemia - replete as needed PDMP PDMP Reviewed: Not Reviewed Attestations 2 Medical Necessity Statement*: hypernatremia Time Spent in Patient Care: 25 minutes Coding Level of Care Code Acute Code for [facility] Fwd Diagnoses Acute kidney injury superimposed on CKD N17.9; N18.9
[2025-01-23] MEDS: OLANZapine 5 mg ODT PO (13:44)
[2025-01-23] MEDS: oxyCODONE 5 mg IR Tab/Cap 15 MG PO (13:44)
--- NOTE | 2025-01-23 13:56 | P.PN_ITS ---
Subjective 2 Subjective: Patient was seen this morning, she recognizes me as her physician she is alert to person, to place, not to time she can follow commands, she is able to smile for me, move her upper extremities bilaterally equal move bilateral extremities equal strength, she is able to follow commands she is much more alert awake continues to have episode of agitation, but is easily redirectable, I talked to send about going home and she tells me she wants to go home, but continues to have generalized weakness, discussed PT OT seeing her and hopefully getting her home when she is able to ambulate, she is much more agreeable, she denies a cough, shortness of breath, no fevers, no chills Vitals/I&O/Wt Last Vital Signs Temp 97.8 F 01/23/25 12:00 Pulse 65 01/23/25 12:00 Resp 18 01/23/25 13:44 BP 115/78 01/23/25 12:00 Pulse Ox 97 01/23/25 13:44 O2 Del Method Nasal Cannula 01/23/25 12:00 O2 Flow Rate 2 01/23/25 12:39 FiO2 30 01/12/25 08:00 01/22/25 01/23/25 01/23/25 22:59 06:59 14:59 Intake Total 85.854 / 339.292 23.188 / 101.354 1410 / 1823 Balance 85.854 / 339.292 23.188 / 486.792 4714 / 182 Physical Exam 2 Const: COMMON NORMALS: no acute distress ORIENTATION/CONSCIOUSNESS: Yes awake, Yes oriented to person and Yes oriented to place Eye: COMMON NORMALS: Equal, round and reactive pupils present and EOMs intact bilaterally PUPIL: Yes Equal, round and reactive pupils present Resp: COMMON NORMALS: normal respiratory effort, No retractions, No use of accessory muscles and clear to auscultation bilaterally AUSCULTATION: clear to auscultation bilaterally Cardio: COMMON NORMALS: regular rate, regular rhythm, S1 normal heart sound present and S2 normal heart sound present RATE: regular rate RHYTHM: r egular rhythm HEART SOUNDS: S1 normal heart sound present and S2 normal heart sound present GI: COMMON NORMALS: Normal to inspection, nondistended, normoactive bowel sounds present and non-tender Extremity: COMMON NORMALS: no pedal edema Neuro: COMMON NORMALS: CN's II-XII intact bilaterally and moves all extremities SENSORIUM/ORIENTATION: Yes oriented to person and Yes oriented to place Urinary Catheter Management: Matias: Cath Placed During This Visit: yes, but has since been removed by the nurse Reason for Continuing Indwelling Catheter: Accurate Measurement of Urinary Output in Critically Ill Patients Urinary Catheter Date of Insertion: 01/10/25 Urinary Catheter Time of Insertion: 15:08 Date Urinary Catheter Removed: 01/16/25 Time Urinary Catheter Discontinued: 12:30 Data 01/23/25 05:56 01/23/25 11:56 A&P Assessment and plan (1) Acute and chronic respiratory failure ([id number]): -Resolved -Multifactorial -From influenza, completed treatment -From aspiration pneumonia, completed IV antibiotics -From fluid overload, systolic CHF exacerbation resolved -COPD exacerbation, completed steroids -A-fib with RVR CONCLUSIONS Moderately increased left ventricular cavity size. Severely decreased left ventricular systolic function. Left ventricular ejection fraction is estimated at 30 %. Global left ventricular hypokinesis. Moderately increased left atrial size. Moderately thickened mitral valve. Mild mitral annular calcification. No mitral valve stenosis. Moderate-severe mitral valve regurgitation. Moderate aortic valve calcification. No aortic valve stenosis. Trace aortic valve regurgitation. Mild tricuspid valve regurgitation. (2) Atrial fibrillation with rapid ventricular response: p.o. amiodarone (3) Influenza: Tamiflu 30 mg daily, completed (4) Hypotension: Monitor (5) Acute kidney injury superimposed on CKD: Creatinine 1.3 -Monitor urine output, monitor creatinine (6) Acute on chronic anemia: Hemoglobin stable (7) Nicotine dependence, cigarettes, with unspecified nicotine-induced disorders: (8) Diabetes 1.5, managed as type 2: Insulin sliding scale (9) Acute encephalopathy: As below (10) Acute CHF: CONCLUSIONS Moderately increased left ventricular cavity size. Severely decreased left ventricular systolic function. Left ventricular ejection fraction is estimated at 30 %. Global left ventricular hypokinesis. Moderately increased left atrial size. Moderately thickened mitral valve. Mild mitral annular calcification. No mitral valve stenosis. Moderate-severe mitral valve regurgitation. Moderate aortic valve calcification. No aortic valve stenosis. Trace aortic valve regurgitation. Mild tricuspid valve regurgitation. There is no pericardial effusion. Stress test in April 2021 IMPRESSIONS 1. Abnormal myocardial perfusion imaging with small infarct noted in the apical inferior wall. No evidence of ischemia 2. LV systolic function is normal with EF of 59% -Aspirin, statin, Eliquis -Will need repeat stress testing and/or coronary angiography and cardiology evaluation at some point, once her respiratory status is improved (11) Aspiration pneumonia: - Resolved (12) Sepsis: - Resolved Qualifiers: Acute renal failure type: unspecified Sepsis acute organ dysfunction status: with acute organ dysfunction Sepsis type: sepsis due to unspecified organism Severe sepsis acute organ dysfunction type: acute renal failure S evere sepsis shock status: without septic shock Qualified Code(s): A41.9 - Sepsis, unspecified organism; R65.20 - Severe sepsis without septic shock; N17.9 - Acute kidney failure, unspecified (13) UTI (urinary tract infection): - As below (14) Uremia: Plan -Acute encephalopathy -Patient's mentation has improved, alert oriented x 2, can follow commands -Likely hospital psychosis -Generalized encephalopathy, episodes of agitation, -Etiology? Hospital psychosis -Component of emphysematous cystitis, however blood cultures so far unremarkable, she remains afebrile, on broad-spectrum antibiotic therapy, has not responded, stop IV antibiotics aztreonam, vancomycin -Potentially modification side effect? Decadron has been stopped -Potentially CVA? She does not have any focal neurologic deficits, her symptoms seem more global she is good strength in upper and lower extremities -Drug withdrawal patient is on her home medications, possible narcotic withdrawal? She has been receiving her narcotics since being hospitalized -Possible seizure? Potentially responded to Keppra continue Keppra 500 mg twice daily, has been stopped due to no response -Possible uremia playing a role? Resolved, on IV fluids -ABG yesterday did not show any significant hypercarbia -Repeat head CT no acute findings -Follow blood culture, so far no growth -Follow urine culture, so far no growth -CT abdomen pelvis shows trace gas in the bladder wall, possible emphysematous cystitis -UA with evidence of cm UTI stop meropenem due to concerns for confusion associate with meropenem switched to aztreonam, added vancomycin, has not responded to antibiotics cultures have been unremarkable, stop antibiotics -Added micafungin for concerns for fungal infection, so far and no significant findings, discontinued due to no response -Added acyclovir for possible viral meningitis, will continue for now -Will hold aspirin, Eliquis,01/19 will consider lumbar puncture in 48 hours based on clinical progress -Lactic acid within normal limits -Ammonia levels within normal limits -MRI brain within normal limits -Tick panel, HSV IgG within normal limits, CMV -Will check acetaminophen levels WNL, salicylate level WNL , drug screen pending, ESR 2, ferritin 1115, haptoglobin 206, LDH 323, random cortisol 12.26 -Has noticed episodes of agitation, biting her own hand, biting her family members, resolved -Zyprexa as needed for agitation -Precedex drip stopped -Possible drug withdrawal? Narcotic withdrawal, patient's oxycodone IR 15 mg p.o. every 6 hours, she has been receiving it, last dose was on jan 19 Hypernatremia due to poor appetite, will continue D5 water today monitor serum sodium every 6 hours Does have soft blood pressures, monitor Anemia, Hemoccult positive stool, hold Eliquis, hold aspirin - Hypokalemia, replace potassium -Uremia, improving -Hypoglycemia resolved Plan for today, will monitor mentation moved to medical floors, private room with a window, continue to have stimulated during the day, bed early, Zyprexa at bedtime, Zyprexa as needed during the day, monitor serum sodium, PT OT, plan to discharge in the next 24 hours based upon ambulatory status, continue acyclovir, continue serum sodium, D5 water PDMP PDMP Reviewed: Last Reviewed 01/20/25 16:43 by Gurmeet Vega MD Attestations 2 Medical Necessity Statement*: Patient requires hospitalization for acute encephalopathy Diagnoses Acute and chronic respiratory failure ([id number]) J96.20 Atrial fibrillation with rapid ventricular response I48.91 Influenza J11.1 Hypotension I95.9 Acute kidney injury superimposed on CKD N17.9; N18.9 Acute on chronic anemia D64.9 Nicotine dependence, cigarettes, 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
[2025-01-23 16:20] LABS: Glucose Point of Care 154 mg/dL (70-110)
[2025-01-23] MEDS: atorvastatin 40 mg Tablet 80 MG PO (21:00)
[2025-01-23 21:07] LABS: Glucose Point of Care 188 mg/dL (70-110)
[2025-01-24] VITALS (17 sets, daily range): BP systolic 85–128; BP diastolic 54–66; PULSE 71–92; RESP 16–22; TEMP 36.4–36.8; O2SAT 76–100
[2025-01-24] MEDS: dextrose 5% 1,000 ML 60 ML IV (02:40)
[2025-01-24 05:19] LABS: Eosinophils # 0.1 10^3/uL (0.0-0.8); Eosinophils % 1.7 %; Lymphocytes # 0.7 10^3/uL (0.8-4.8); Lymphocytes % 8.6 %; Mean Corpuscular HGB Conc 31.3 g/dL (30-55); Mean Corpuscular Hemoglobin 29.5 pg (27-33); Mean Corpuscular Volume 94.5 fl (85-98); Mean Platelet Volume 11.9 fL (7.4-10.4); Monocytes # 0.7 10^3/uL (0.2-0.9); Monocytes % 8.9 %; Neutrophils # 6.59 10^3/uL (1.8-7.7); Neutrophils % 80.2 %; Nucleated Red Blood Cells % 0 %; Platelet Count 157 10^3/cmm (157-399); Red Blood Count 2.54 10^6/uL (3.85-5.65); Red Cell Distribution Width 15.9 % (12.1-15.1); White Blood Count 8.22 10^3/uL (3.29-11.43)
[2025-01-24 05:40] LABS: Alanine Aminotransferase 21 U/L (0-33); Albumin Level 2.7 g/dL (3.5-5.2); Alkaline Phosphatase 105 U/L (35-105); Anion Gap 12.2 (5-19); Aspartate Amino Transferase 27 U/L (0-32); Blood Urea Nitrogen 22 mg/dL (8-23); Calcium 8.5 mg/dL (8.5-10.5); Carbon Dioxide 22 mmol/L (22-29); Chloride 115 mmol/L (98-107); Creatinine Clr Calc Pharmacy 31.8501; Globulin 2.7 g/dL (1.3-4.6); Glucose 89 mg/dL (65-115); Magnesium 2.1 mg/dL (1.7-2.3); Osmolality Calculated 305 mOsm/kg (285-295); Potassium 3.2 mmol/L (3.5-5.1); Sodium 146 mmol/L (136-145); Total Bilirubin 2.3 mg/dL (0.15-1.2); Total Protein 5.4 g/dL (6.6-8.7)
[2025-01-24 06:39] LABS: Glucose Point of Care 101 mg/dL (70-110)
[2025-01-24] MEDS: ipratropium-albuterol 3 mL Neb INHALATION ×3 (07:30→20:17)
[2025-01-24] MEDS: budesonide 0.5 mg/2 mL Neb INHALATION ×2 (07:30→20:17)
--- NOTE | 2025-01-24 07:32 | PC.NURSE ---
Dulcolax and miralax held for this morning as pt is having frequent loose BM.
[2025-01-24] MEDS: amiodarone 200 mg Tablet PO (08:18)
[2025-01-24] MEDS: famotidine 20 mg Tablet PO (08:18)
[2025-01-24] MEDS: citalopram 20 mg Tablet PO (08:18)
[2025-01-24] MEDS: nystatin 100,000 unit/mL UDC 5 mL 100000 UNIT PO ×2 (08:18→11:45)
[2025-01-24] MEDS: OLANZapine 5 mg ODT PO (08:19)
[2025-01-24] MEDS: montelukast sodium 10 mg Tablet PO (08:19)
[2025-01-24] MEDS: LORazepam 2 mg/mL INJ 1 mL 1 MG IVP ×2 (10:45→11:46)
[2025-01-24 10:50] LABS: Glucose Point of Care 216 mg/dL (70-110)
[2025-01-24] MEDS: nicotine 14 mg Patch 1 PATCH TRANSDERMA (11:44)
[2025-01-24] MEDS: insulin lispro 100 unit/1 mL SUBCUT ×2 (11:45→17:38)
--- NOTE | 2025-01-24 13:05 | P.PN_ITS ---
Subjective 2 Subjective: Patient remains confused. She is on d5w at 50ml/hr Medications: Reviewed: Yes Vitals/I&O/Wt Last Vital Signs Temp 97.8 F 01/24/25 07:56 Pulse 92 01/24/25 11:38 Resp 22 H 01/24/25 11:38 BP 85/64 01/24/25 07:56 Pulse Ox 95 01/24/25 11:38 O2 Del Method Nasal Cannula 01/24/25 11:38 O2 Flow Rate 4 01/24/25 11:38 FiO2 30 01/12/25 08:00 01/23/25 01/24/25 01/24/25 22:59 06:59 14:59 Intake Total 505 / 2328 1265 / 3593 120 / 120 Balance 505 / 2328 1265 / 3593 120 / 120 Physical Exam 2 Const: COMMON NORMALS: no acute distress and average body habitus EXAM LIMITATIONS: altered mental status ORIENTATION/CONSCIOUSNESS: Yes awake and Yes confused HENMT: COMMON NORMALS: normocephalic and atraumatic HEAD & SCALP: n ormocephalic and atraumatic Eye: COMMON NORMALS: EOMs intact bilaterally and no scleral icterus Neck/C-Spine: COMMON NORMALS: full ROM and no JVD Resp: COMMON NORMALS: normal respiratory effort and clear to auscultation bilaterally AUSCULTATION: clear to auscultation bilaterally Cardio: COMMON NORMALS: no JVD, regular rate, regular rhythm, S1 normal heart sound present and S2 normal heart sound present RATE: regular rate RHYTHM: regular rhythm HEART SOUNDS: S1 normal heart sound present and S2 normal heart sound present GI: COMMON NORMALS: Soft to palpation and non-tender PALPATION: Yes Soft to palpation Extremity: COMMON NORMALS: no pedal edema Skin: COMMON NORMALS: no rashes or lesions noted GENERAL SKIN EXAM: no rashes or lesions noted Urinary Catheter Management: Matias: Cath Placed During This Visit: yes, but has since been removed by the nurse Reason for Continuing Indwelling Catheter: Accurate Measurement of Urinary Output in Critically Ill Patients Urinary Catheter Date of Insertion: 01/10/25 Urinary Catheter Time of Insertion: 15:08 Date Urinary Catheter Removed: 01/16/25 Time Urinary Catheter Discontinued: 12:30 Data 01/24/25 04:33 01/24/25 04:33 A&P Assessment and plan (1) Acute kidney injury superimposed on CKD: 1. hypernatremia- improving. cont hypotonic ivf ( d5w) 2. 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 Patient's volume status is stable but she still has encephalopathy, etiology still unclear. 3. Encephalopathy- likely metabolic, 4. Acute on chronic respiratory failure- in the setting of CHF with low ejection fraction and COPD, status post diuresis 5. Rapid A-fib- hr is controlled 6. CHF with low ejection fraction of 30% 7. History of diabetes 8. Hypokalemia - replete as needed PDMP PDMP Reviewed: Not Reviewed Attestations 2 Medical Necessity Statement*: cecilio, hypernatremia Time Spent in Patient Care: 20 minutes Coding Level of Care Code Acute Code for [facility] Fwd Diagnoses Acute kidney injury superimposed on CKD N17.9; N18.9
[2025-01-24] MEDS: lidocaine 1% 5 ML in potassium chloride premix 100 ML 52.5 ML IV (14:41)
[2025-01-24] MEDS: FUROsemide 10 mg/mL SDV 4mL 40 MG IVP (14:41)
--- NOTE | 2025-01-24 15:20 | PC.SOCIAL ---
IMM Updated IMM dates and initialed, copy placed in chart and copy given to patient
--- NOTE | 2025-01-24 15:24 | P.PN_ITS ---
Subjective 2 Subjective: Patient was seen this morning, she is alert to person, to place, not to time, she can follow commands she is able to move bilateral upper lower extremities, she can follow commands does have episodes of agitation, she was able to take all her pills this morning, able to sit to stand, with physical therapy, she was not given her Zyprexa during the night due to concerns for low blood pressure, continues to have open patient this morning, had to be given 2 doses of Ativan, family ember at bedside, discussed monitoring her here in the hospital and discharging tomorrow, when she gets the Zyprexa tonight her mentation is improved continue PT OT hemoglobin 7.5 will give her 1 unit of blood continue to hold aspirin, and Eliquis Vitals/I&O/Wt Last Vital Signs Temp 97.5 F L 01/24/25 15:22 Pulse 86 01/24/25 15:22 Resp 16 01/24/25 15:22 BP 99/59 01/24/25 15:22 Pulse Ox 95 01/24/25 15:22 O2 Del Method Nasal Cannula 01/24/25 15:22 O2 Flow Rate 4 01/24/25 11:38 FiO2 30 01/12/25 08:00 01/24/25 01/24/25 01/24/25 06:59 14:59 22:59 Intake Total 1265 / 3593 851 / 851 Balance 1265 / 3593 851 / 851 Physical Exam 2 Const: COMMON NORMALS: no acute distress ORIENTATION/CONSCIOUSNESS: Yes awake, Yes oriented to person and Yes oriented to place; not oriented to time Resp: COMMON NORMALS: normal respiratory effort, No retractions, No use of accessory muscles and clear to auscultation bilaterally AUSCULTATION: clear to auscultation bilaterally Cardio: COMMON NORMALS: regular rate, regular rhythm, S1 normal heart sound present and S2 normal heart sound present RATE: regular rate RHYTHM: r egular rhythm HEART SOUNDS: S1 normal heart sound present and S2 normal heart sound present GI: COMMON NORMALS: Normal to inspection, nondistended, normoactive bowel sounds present and non-tender Extremity: COMMON NORMALS: no pedal edema Neuro: SENSORIUM/ORIENTATION: Yes oriented to person, Yes oriented to place and No oriented to time Urinary Catheter Management: Matias: Cath Placed During This Visit: yes, but has since been removed by the nurse Reason for Continuing Indwelling Catheter: Accurate Measurement of Urinary Output in Critically Ill Patients Urinary Catheter Date of Insertion: 01/10/25 Urinary Catheter Time of Insertion: 15:08 Date Urinary Catheter Removed: 01/16/25 Time Urinary Catheter Discontinued: 12:30 Data 01/24/25 04:33 01/24/25 04:33 A&P Assessment and plan (1) Acute and chronic respiratory failure ([id number]): -Resolved -Multifactorial -From influenza, completed treatment -From aspiration pneumonia, completed IV antibiotics -From fluid overload, systolic CHF exacerbation resolved -COPD exacerbation, completed steroids -A-fib with RVR CONCLUSIONS Moderately increased left ventricular cavity size. Severely decreased left ventricular systolic function. Left ventricular ejection fraction is estimated at 30 %. Global left ventricular hypokinesis. Moderately increased left atrial size. Moderately thickened mitral valve. Mild mitral annular calcification. No mitral valve stenosis. Moderate-severe mitral valve regurgitation. Moderate aortic valve calcification. No aortic valve stenosis. Trace aortic valve regurgitation. Mild tricuspid valve regurgitation. (2) Atrial fibrillation with rapid ventricular response: p.o. amiodarone (3) Influenza: Tamiflu 30 mg daily, completed (4) Hypotension: Monitor (5) Acute kidney injury superimposed on CKD: Creatinine 1.3 -Monitor urine output, monitor creatinine (6) Acute on chronic anemia: Hemoglobin stable (7) Nicotine dependence, cigarettes, with unspecified nicotine-induced disorders: (8) Diabetes 1.5, managed as type 2: Insulin sliding scale (9) Acute encephalopathy: As below (10) Acute CHF: CONCLUSIONS Moderately increased left ventricular cavity size. Severely decreased left ventricular systolic function. Left ventricular ejection fraction is estimated at 30 %. Global left ventricular hypokinesis. Moderately increased left atrial size. Moderately thickened mitral valve. Mild mitral annular calcification. No mitral valve stenosis. Moderate-severe mitral valve regurgitation. Moderate aortic valve calcification. No aortic valve stenosis. Trace aortic valve regurgitation. Mild tricuspid valve regurgitation. There is no pericardial effusion. Stress test in April 2021 IMPRESSIONS 1. Abnormal myocardial perfusion imaging with small infarct noted in the apical inferior wall. No evidence of ischemia 2. LV systolic function is normal with EF of 59% -Aspirin, statin, Eliquis -Will need repeat stress testing and/or coronary angiography and cardiology evaluation at some point, once her respiratory status is improved (11) Aspiration pneumonia: - Resolved (12) Sepsis: - Resolved Qualifiers: Acute renal failure type: unspecified Sepsis acute organ dysfunction status: with acute organ dysfunction Sepsis type: sepsis due to unspecified organism Severe sepsis acute organ dysfunction type: acute renal failure S evere sepsis shock status: without septic shock Qualified Code(s): A41.9 - Sepsis, unspecified organism; R65.20 - Severe sepsis without septic shock; N17.9 - Acute kidney failure, unspecified (13) UTI (urinary tract infection): - As below (14) Uremia: Plan -Acute encephalopathy -Patient's mentation has improved, alert oriented x 2, can follow commands -Likely hospital psychosis -Generalized encephalopathy, episodes of agitation, -Etiology? Hospital psychosis -Component of emphysematous cystitis, however blood cultures so far unremarkable, she remains afebrile, on broad-spectrum antibiotic therapy, has not responded, stop IV antibiotics aztreonam, vancomycin -Potentially modification side effect? Decadron has been stopped -Potentially CVA? She does not have any focal neurologic deficits, her symptoms seem more global she is good strength in upper and lower extremities -Drug withdrawal patient is on her home medications, possible narcotic withdrawal? She has been receiving her narcotics since being hospitalized -Possible seizure? Potentially responded to Keppra continue Keppra 500 mg twice daily, has been stopped due to no response -Possible uremia playing a role? Resolved, on IV fluids -ABG yesterday did not show any significant hypercarbia -Repeat head CT no acute findings -Follow blood culture, so far no growth -Follow urine culture, so far no growth -CT abdomen pelvis shows trace gas in the bladder wall, possible emphysematous cystitis -UA with evidence of cm UTI stop meropenem due to concerns for confusion associate with meropenem switched to aztreonam, added vancomycin, has not responded to antibiotics cultures have been unremarkable, stop antibiotics -Added micafungin for concerns for fungal infection, so far and no significant findings, discontinued due to no response -Added acyclovir for possible viral meningitis, will continue for now -Will hold aspirin, Eliquis,01/19 will consider lumbar puncture in 48 hours based on clinical progress -Lactic acid within normal limits -Ammonia levels within normal limits -MRI brain within normal limits -Tick panel, HSV IgG within normal limits, CMV -Will check acetaminophen levels WNL, salicylate level WNL , drug screen pending, ESR 2, ferritin 1115, haptoglobin 206, LDH 323, random cortisol 12.26 -Has noticed episodes of agitation, biting her own hand, biting her family members, resolved -Zyprexa as needed for agitation -Precedex drip stopped -Possible drug withdrawal? Narcotic withdrawal, patient's oxycodone IR 15 mg p.o. every 6 hours, she has been receiving it, last dose was on jan 19 Hypernatremia due to poor appetite, will continue D5 water today monitor serum sodium every 6 hours Does have soft blood pressures, monitor Anemia, Hemoccult positive stool, hold Eliquis, hold aspirin - Hypokalemia, replace potassium -Uremia, improving -Hypoglycemia resolved Plan for today, continue PT OT, 1 unit of blood, after 2 doses of Ativan she is able to rest, will give her Zyprexa tonight hopefully after a night of sleep, her mentation should be better plan on discharging tomorrow if she can tolerate physical therapy and if hemoglobin is reasonable PDMP PDMP Reviewed: Last Reviewed 01/20/25 16:43 by Gurmeet Vega MD Attestations 2 Medical Necessity Statement*: Patient requires hospitalization for encephalopathy, concerns for hospital due to psychosis Diagnoses Acute and chronic respiratory failure ([id number]) J96.20 Atrial fibrillation with rapid ventricular response I48.91 Influenza J11.1 Hypotension I95.9 Acute kidney injury superimposed on CKD N17.9; N18.9 Acute on chronic anemia D64.9 Nicotine dependence, cigarettes, 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
[2025-01-24 16:15] LABS: Glucose Point of Care 206 mg/dL (70-110)
--- NOTE | 2025-01-24 17:02 | PC.OT ---
OT TREATMENT ATTEMPTED TWICE TODAY; BEFORE LUNCH AND AND AT 1620 BEFORE SUPPER. PATIENT SLEEPING SOUNDLY ON BOTH TRIALS.
--- NOTE | 2025-01-24 17:20 | PC.SLP ---
DRIER to room to work with the pt, but pt is sleeping soundly. DRIER will attempt to follow-up with the pt tomorrow.
--- NOTE | 2025-01-24 18:20 | PC.NURSE ---
Pt has only voided once the entire shift today. This nurse asked DANIELA Tinoco to bladder scan pt. Pt obtaining 1100mL. Verbal order given to place blackman catheter.
[2025-01-24 18:25] LABS: Hematocrit 26.9 % (36-47)
[2025-01-24 20:40] LABS: Glucose Point of Care 97 mg/dL (70-110)
[2025-01-25] VITALS (7 sets, daily range): BP systolic 92–127; BP diastolic 52–65; PULSE 75–90; RESP 16–22; TEMP 36.4–36.8; O2SAT 96–98
[2025-01-25] MEDS: dextrose 5% 1,000 ML 50 ML IV (03:13)
[2025-01-25 06:25] LABS: Basophils % 0.2 %; Eosinophils # 0.1 10^3/uL (0.0-0.8); Eosinophils % 2.2 %; Hematocrit 28.9 % (36-47); Lymphocytes # 0.8 10^3/uL (0.8-4.8); Lymphocytes % 12.7 %; Mean Corpuscular HGB Conc 31.8 g/dL (30-55); Mean Corpuscular Hemoglobin 29.7 pg (27-33); Mean Corpuscular Volume 93.2 fl (85-98); Mean Platelet Volume 11.7 fL (7.4-10.4); Monocytes # 0.5 10^3/uL (0.2-0.9); Monocytes % 7.4 %; Neutrophils # 4.93 10^3/uL (1.8-7.7); Neutrophils % 77.3 %; Nucleated Red Blood Cells % 0.3 %; Platelet Count 147 10^3/cmm (157-399); Red Cell Distribution Width 16.9 % (12.1-15.1); White Blood Count 6.37 10^3/uL (3.29-11.43)
[2025-01-25 06:34] LABS: Glucose Point of Care 88 mg/dL (70-110)
[2025-01-25 06:49] LABS: Alanine Aminotransferase 25 U/L (0-33); Albumin Level 2.8 g/dL (3.5-5.2); Alkaline Phosphatase 121 U/L (35-105); Aspartate Amino Transferase 31 U/L (0-32); Blood Urea Nitrogen 24 mg/dL (8-23); Calcium 8.5 mg/dL (8.5-10.5); Carbon Dioxide 23 mmol/L (22-29); Chloride 113 mmol/L (98-107); Creatinine Clr Calc Pharmacy 27.6034; Globulin 2.9 g/dL (1.3-4.6); Glucose 85 mg/dL (65-115); Magnesium 1.9 mg/dL (1.7-2.3); Osmolality Calculated 307 mOsm/kg (285-295); Phosphorus 3.1 mg/dL (2.5-4.5); Sodium 147 mmol/L (136-145); Total Bilirubin 2.1 mg/dL (0.15-1.2); Total Protein 5.7 g/dL (6.6-8.7)
[2025-01-25 07:07] LABS: Anion Gap 15.2 (5-19); Potassium 4.2 mmol/L (3.5-5.1)
[2025-01-25] MEDS: ipratropium-albuterol 3 mL Neb INHALATION ×2 (07:26→11:19)
[2025-01-25] MEDS: budesonide 0.5 mg/2 mL Neb INHALATION (07:26)
[2025-01-25] MEDS: nystatin 100,000 unit/mL UDC 5 mL 100000 UNIT PO ×2 (08:45→11:52)
[2025-01-25] MEDS: montelukast sodium 10 mg Tablet PO (08:45)
[2025-01-25] MEDS: famotidine 20 mg Tablet PO (08:45)
[2025-01-25] MEDS: amiodarone 200 mg Tablet PO (08:45)
[2025-01-25] MEDS: bisacodyl 5 mg Tablet 10 MG PO (08:45)
[2025-01-25] MEDS: citalopram 20 mg Tablet PO (08:45)
[2025-01-25] MEDS: polyethylene glycol 3350 Pkt 17 gm PO (08:45)
[2025-01-25 11:29] LABS: Glucose Point of Care 118 mg/dL (70-110)
--- NOTE | 2025-01-25 13:56 | P.PN_ITS ---
Subjective 2 Subjective: Patient is confused. She is on 2L o2 Medications: Reviewed: Yes Vitals/I&O/Wt Last Vital Signs Temp 97.8 F 01/25/25 11:54 Pulse 90 01/25/25 11:54 Resp 17 01/25/25 11:54 BP 127/65 01/25/25 11:54 Pulse Ox 96 01/25/25 11:54 O2 Del Method Nasal Cannula 01/25/25 11:54 O2 Flow Rate 2 01/25/25 11:19 FiO2 30 01/12/25 08:00 01/24/25 01/25/25 01/25/25 22:59 06:59 14:59 Intake Total 889 / 1740 265 / 2005 Output Total 1400 / 1400 300 / 1700 Balance -511 / 340 -35 / 305 Weight last 48 hrs Weight 73.028 kg Physical Exam 2 Const: COMMON NORMALS: no acute distress ORIENTATION/CONSCIOUSNESS: Yes awake HENMT: COMMON NORMALS: normocephalic and atraumatic HEAD & SCALP: n ormocephalic and atraumatic Eye: COMMON NORMALS: EOMs intact bilaterally and no scleral icterus Resp: COMMON NORMALS: normal respiratory effort, No retractions, No use of accessory muscles and clear to auscultation bilaterally AUSCULTATION: clear to auscultation bilaterally Cardio: COMMON NORMALS: regular rate, regular rhythm, S1 normal heart sound present and S2 normal heart sound present RATE: regular rate RHYTHM: r egular rhythm HEART SOUNDS: S1 normal heart sound present and S2 normal heart sound present GI: COMMON NORMALS: Normal to inspection, nondistended, normoactive bowel sounds present and non-tender Extremity: COMMON NORMALS: no pedal edema Skin: COMMON NORMALS: no rashes or lesions noted GENERAL SKIN EXAM: no rashes or lesions noted Urinary Catheter Management: Matias: Cath Placed During This Visit: yes, but has since been removed by the nurse Reason for Continuing Indwelling Catheter: Other Urinary Catheter Date of Insertion: 01/24/25 Urinary Catheter Time of Insertion: 15:08 Date Urinary Catheter Removed: 01/16/25 Time Urinary Catheter Discontinued: 12:30 Data 01/25/25 06:07 01/25/25 06:07 A&P Assessment and plan (1) Acute kidney injury superimposed on CKD: 1. hypernatremia- i will increase her hypotonic ivf ( d5w) to 75 ml/hr 2. 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 Patient's volume status is stable but she still has encephalopathy, etiology still unclear. - i will check urine lytes 3. Encephalopathy- likely metabolic 4. Acute on chronic respiratory failure- in the setting of CHF with low ejection fraction and COPD, status post diuresis 5. Rapid A-fib- hr is controlled 6. CHF with low ejection fraction of 30% 7. History of diabetes 8. Hypokalemia - replete as needed PDMP PDMP Reviewed: Not Reviewed Attestations 2 Medical Necessity Statement*: hypernatremia, cecilio Time Spent in Patient Care: 25 minutes Coding Level of Care Code Acute Code for g Fwd Diagnoses Acute kidney injury superimposed on CKD N17.9; N18.9
--- NOTE | 2025-01-25 15:11 | P.DS_ITS ---
Discharge Providers Date of Admission: 01/05/25 14:58 Date of Discharge: January 25, 2025 Attending Provider at Admission: Jovanni Rose Attending Provider at Discharge: Gurmeet Vega MD Primary Care Provider: Kofi Lopze MD Diagnoses at Discharge Discharge Diagnosis (1) Acute kidney injury superimposed on CKD: Status: Acute Reason for Visit Reason for Visit: SOB Hospital Course Hospital Course This is a 84-year-old female with a past medical history of COPD, on 3 L, CHF, asthma, atrial fibrillation, general anxiety disorder, CKD, diabetes, peripheral neuropathy, anemia, CVA, abdominal aortic aneurysm, renal artery stenosis, hypertension, hyperlipidemia, smoker, concerns for dementia, chronic pain who presents to [facility] due to shortness of breath, cough Patient had a prolonged hospitalization, please look at progress notes for further detail On hospital mission patient was admitted for acute on chronic respiratory failure, secondary to influenza A, COPD, acute on chronic anemia SONNY, hypoglycemia, hypotension, CHF. Required ICU admission, BiPAP, did require Levophed, steroids, antibiotics, Tamiflu. Patient required further diuresis, overall clinically improved with IV diuresis, A-fib with RVR, managed on amiodarone drip. Sepsis secondary to pneumonia, overall clinically improved. Overall patient's respiratory status improved with Tamiflu, IV antibiotics, diuresis, and had become euvolemic. Patient's hospitalization was complicated by SONNY, nephrology was consulted, diuresis was held, did require IV fluids, overall creatinine has improved to 1.5 on discharge Patient's hospitalization was complicated by acute anemia, she did require 1 unit PRBC, as Hemoccult stools are positive, will hold Eliquis, aspirin, have her follow-up with primary care provider to recheck hemoglobin as outpatient. Discussed patient, and family, risk and benefits of holding anticoagulation, they voiced understanding, all questions answered, agreed to proceed For her type 2 diabetes, discharged on insulin sliding scale Patient hospitalization was complicated by acute psychosis/acute encephalopathy -Concerns for hospital associated psychosis -She had a broad workup -Including MRI which within normal limits -Multiple head CTs within normal limits -Lumbar puncture could not be performed as patient was on Eliquis and aspirin -But was treated with broad-spectrum antibiotic therapy, antifungals without significant improvement of her mentation, -There was concern for aseptic meningitis, she was monitored on antivirals, received about 10 days of acyclovir without any significant improvement in her m entation, thus it was discontinued -There was also concerns for catheter associated UTI however urine cultures are negative, blood cultures negative, she remains afebrile -Her white blood cell count is within normal limits, NT blood culture within normal limits, inflammatory cultures within normal limits -She also received a trial of seizure medications, for possible seizures however there is no significant movement of her mentation -Steroids were stopped as there was concerns for steroid-induced psychosis -Cortisol levels within normal limits -Drug screen within normal limits ? Due to persistent encephalopathy, she required ICU level care, Precedex drip multiple sedating medications -Neurology was consulted, concerns for hospital associated psychosis -After Zyprexa, and 24 hours of rest, her mentation did significantly improve -She was moved to medical floors -She is able to follow all commands alert oriented x 2, no focal neurologic deficits, she does have episodic drowsiness -She does need assistance -Family is adamant about her going home -Pal[place] declines going to a jail -She does have generalized weakness and fatigue so my concern would be her risk of rehospitalization, however she is adamant about not going to a jail -I also suspect that she has some degree of dementia that is also playing a role -Nonetheless on discharge -She is alert oriented x 2, can follow commands, can carry out tasks, can carry conversations, she is drowsy I cannot discern any focal neurologic deficits -I am hopeful that some of that drowsiness should improve as she leaves the the [facility] and is back into a regular environment Physical Exam Const: COMMON NORMALS: no acute distress ORIENTATION/CONSCIOUSNESS: Yes awake, Yes oriented to person and Yes oriented to place; not oriented to time Eye: COMMON NORMALS: Equal, round and reactive pupils present PUPIL: Yes Equal, round and reactive pupils present Resp: COMMON NORMALS: normal respiratory effort, No retractions, No use of accessory muscles and clear to auscultation bilaterally AUSCULTATION: clear to auscultation bilaterally Cardio: COMMON NORMALS: regular rate, regular rhythm, S1 normal heart sound present and S2 normal heart sound present RATE: regular rate RHYTHM: regular rhythm HEART SOUNDS: S1 normal heart sound present and S2 normal heart sound present GI: COMMON NORMALS: Normal to inspection, nondistended, normoactive bowel sounds present and non-tender Extremity: COMMON NORMALS: no pedal edema Neuro: COMMON NORMALS: CN's II-XII intact bilaterally, moves all extremities and no focal motor deficits SENSORIUM/ORIENTATION: Yes oriented to person, Yes oriented to place and No oriented to time Urinary Catheter Management: Matias: Cath Placed During This Visit: yes, but has since been removed by the nurse Reason for Continuing Indwelling Catheter: Other Urinary Catheter Date of Insertion: 01/24/25 Urinary Catheter Time of Insertion: 15:08 Date Urinary Catheter Removed: 01/16/25 Time Urinary Catheter Discontinued: 12:30 Discharge Data Studies Completed and Pending Completed Studies During Hospitalization Category Date Time Status CT abdomen pelvis wo con [id number] Stat Cat Scan 01/05/25 12:[address] abdomen pelvis wo con [id number] Stat Cat Scan 01/16/25 13:[address] chest wo con [id number] Stat Cat Scan 01/10/25 09:[address] head wo con* [id number] Routine Cat Scan 01/16/25 13:[address] head wo con* [id number] Routine Cat Scan 01/18/25 15:33 Completed XR chest 1V [id number] Stat Exams 01/10/25 01:15 Completed XR chest 1V portable [id number] Routine Exams 01/10/25 08:58 Completed XR chest 1V portable [id number] Routine Exams 01/11/25 07:00 Completed XR chest 1V portable [id number] Stat Exams 01/05/25 07:35 Completed XR patella RT 1-2V [id number] Routine Exams 01/15/25 10:03 Completed XR tibia fibula RT 2V [id number] Routine Exams 01/15/25 10:03 Completed MR head wo con* [id number] Routine MRI 01/21/25 11:15 Completed CV. echo complete* [id number] Routine Ultrasound 01/10/25 08:59 Completed US bladder [id number] Routine Ultrasound 01/17/25 09:53 Completed Pending at discharge Category Date Time Status Aldosterone Stat Lab 01/20/25 16:40 Received CDIFF [C.Diff PCR (Lab)] Routine Lab 01/23/25 09:51 Uncollected Drug Screen, Urine Stat Lab 01/18/25 18:34 Uncollected RENIN [Plasma Renin Activity LC/MS/MS] Routine Lab 01/20/25 16:40 Received Tick Panel Stat Lab 01/19/25 18:32 Results Radiology Impressions Chest CT 01/10/25 09:01 IMPRESSION: 1. Cardiomegaly. 2. Small bilateral pleural effusions. 3. Bilateral airspace disease likely representing a combination of pneumonia and atelectasis. An asymmetric pulmonary edema pattern is possible but felt to be somewhat less likely. Chest X-Ray 01/11/25 07:00 IMPRESSION: 1. Bilateral pulmonary infiltrates more extensive on the RIGHT. Very little change since the last exam. Patella X-Ray 01/15/25 10:03 IMPRESSION: No acute findings in this very limited single view of the patella. Tibia/Fibula X-Ray 01/15/25 10:03 IMPRESSION: No acute skeletal pathology. Abdomen/Pelvis CT 01/16/25 13:08 IMPRESSION: 1. Trace gas in the bladder wall. Possible emphysematous cystitis. Correlate with urinalysis. 2. Incidental findings above. Bladder Ultrasound 01/17/25 09:53 IMPRESSION: Technically difficult study. Mild bladder wall thickening. Bladder otherwise appears normal Head CT 01/18/25 15:33 IMPRESSION: No acute intracranial abnormality. Head MRI 01/21/25 11:15 IMPRESSION: 1. No evidence of acute intracranial abnormality. Laboratory Results WBC 6.37 10^3/uL (3.29-11.43) 01/25/25 06:07 RBC 3.10 10^6/uL (3.85-5.65) L 01/25/25 06:07 Hgb 9.20 g/dL (11.27-16.99) L 01/25/25 06:07 Hct 28.9 % (36-47) L 01/25/25 06:07 MCV 93.2 fl (85-98) 01/25/25 06:07 MCH 29.7 pg (27-33) 01/25/25 06:07 MCHC 31.8 g/dL (30-55) 01/25/25 06:07 RDW 16.9 % (12.1-15.1) H 01/25/25 06:07 Plt Count 147 10^3/cmm (157-399) L 01/25/25 06:07 MPV 11.7 fL (7.4-10.4) H 01/25/25 06:07 Neut % (Auto) 77.3 % 01/25/25 06:07 Lymph % (Auto) 12.7 % 01/25/25 06:07 [place] % (Auto) 7.4 % 01/25/25 06:07 Eos % (Auto) 2.2 % 01/25/25 06:07 Baso % (Auto) 0.2 % 01/25/25 06:07 Neut # (Auto) 4.93 10^3/uL (1.8-7.7) 01/25/25 06:07 Lymph # (Auto) 0.8 10^3/uL (0.8-4.8) 01/25/25 06:07 [place] # (Auto) 0.5 10^3/uL (0.2-0.9) 01/25/25 06:07 Eos # (Auto) 0.1 10^3/uL (0.0-0.8) 01/25/25 06:07 Baso # (Auto) 0.0 10^3/uL (0.0-0.1) 01/25/25 06:07 Nucleated RBC % (auto) 0.3 % 01/25/25 06:07 Nucleated RBCs # 0.0 /100WBC 01/25/25 06:07 ESR 2 mm/hr (0-15) 01/18/25 19:15 Haptoglobin 206.0 mg/L (30-200) H 01/18/25 19:15 Specimen Type Arterial 01/18/25 09:20 Sample Site Radial, right 01/18/25 09:20 ABG pH 7.41 (7.35-7.45) 01/18/25 09:20 ABG pCO2 44.6 mmHg (35-45) 01/18/25 09:20 ABG pO2 54.1 mmHg (80.0-100.0) L 01/18/25 09:20 ABG PO2/FiO2 Ratio 268 01/16/25 13:11 ABG HCO3 28.2 mmol/L (22-26) H 01/18/25 09:20 ABG O2 Saturation 88.8 01/10/25 13:15 ABG Base Excess 3.2 mmol/L (-2.0-2.0) H 01/18/25 09:20 Carlos Alberto Test Pos 01/18/25 09:20 A-a O2 Gradient 40.4 mmHg (5-10) H 01/10/25 13:15 Hematocrit 30.4 % (37-47) L 01/18/25 09:20 Hgb O2 Saturation 87.5 % (95-100) L 01/10/25 13:15 Carboxyhemoglobin 1.1 %THgb (0.4-20.1) 01/10/25 13:15 Methemoglobin 0.4 % (0.4-1.5) 01/10/25 13:15 Total Hemoglobin 12.6 g/dL (12-16) 01/10/25 13:15 Sodium 147.0 mmol/L (131-143) H 01/10/25 13:15 Potassium 2.9 mmol/L (3.5-5.0) L 01/10/25 13:15 Glucose 102.0 mg/dL (70-115) 01/10/25 13:15 Ionized Calcium 1.2 mmol/L (1.1-1.4) 01/10/25 13:15 O2 Delivery Device Not Reportable 01/18/25 09:20 O2 Liters/Min 4.0 % 01/05/25 09:53 FiO2 21.0 % 01/16/25 13:11 Barber ID 0 01/18/25 09:20 Sodium 147 mmol/L (136-145) H 01/25/25 06:07 Potassium 4.2 mmol/L (3.5-5.1) 01/25/25 06:07 Chloride 113 mmol/L (98-107) H 01/25/25 06:07 Carbon Dioxide 23 mmol/L (22-29) 01/25/25 06:07 Anion Gap 15.2 (5-19) 01/25/25 06:07 BUN 24 mg/dL (8-23) H 01/25/25 06:07 Creatinine 1.5 mg/dL (0.5-0.9) H 01/25/25 06:07 GFR Calculation Not Reportable 01/25/25 06:07 Glucose 85 mg/dL (65-115) 01/25/25 06:07 POC Glucose 118 mg/dL (70-110) H 01/25/25 11:24 Calculated Osmolality 307 mOsm/kg (285-295) H 01/25/25 06:07 Lactic Acid 1.6 mmol/L (0.5-2.2) 01/22/25 09:15 Lactate 0.9 mmol/L (0.5-2.2) 01/21/25 03:57 Calcium 8.5 mg/dL (8.5-10.5) 01/25/25 06:07 Phosphorus 3.1 mg/dL (2.5-4.5) 01/25/25 06:07 Magnesium 1.9 mg/dL (1.7-2.3) 01/25/25 06:07 Ferritin 1115 ng/mL (15-150) H 01/18/25 19:15 Total Bilirubin 2.1 mg/dL (0.15-1.2) H 01/25/25 06:07 AST 31 U/L (0-32) 01/25/25 06:07 ALT 25 U/L (0-33) 01/25/25 06:07 Alkaline Phosphatase 121 U/L (35-105) H 01/25/25 06:07 Ammonia 12 umol/L (11-51) 01/18/25 15:37 Lactate Dehydrogenase 323 U/L (135-214) H 01/18/25 19:15 Troponin T Baseline 67 ng/L (0-10) H 01/19/25 08:41 Troponin T 120 Minute 63.23 ng/L (0-10) H 01/19/25 11:00 Delta Troponin T -3.77 ABS# (0-10) L 01/19/25 11:00 Troponin T Hi Sens 6Hr 65.79 ng/L (0-10) H 01/19/25 14:50 Troponin T Hi Sens 6Hr Delta -1.21 ng/L (0-12) L 01/19/25 14:50 C-Reactive Protein 71.1 mg/L (0.0-4.9) H 01/21/25 03:57 NT-Pro-B Natriuret Pep 74306 pg/mL (0-450) H 01/21/25 03:57 Total Protein 5.7 g/dL (6.6-8.7) L 01/25/25 06:07 Albumin 2.8 g/dL (3.5-5.2) L 01/25/25 06:07 Globulin 2.9 g/dL (1.3-4.6) 01/25/25 06:07 Procalcitonin 0.19 ng/mL (0-0.5) 01/21/25 03:57 TSH 1.38 uIU/mL (0.27-4.20) 01/15/25 10:58 Random Cortisol 13.88 ug/dL (2.47-19.5) 01/22/25 04:43 Urine Color [place] (Yellow) A 01/16/25 10:49 Urine Appearance Turbid (CLEAR) A 01/16/25 10:49 Urine pH 5.0 (5-7) 01/16/25 10:49 Ur Specific [place] 1.022 (1.005-1.030) 01/16/25 10:49 Urine Protein 2+ (Negative) A 01/16/25 10:49 Urine Glucose (UA) Negative (Normal) 01/16/25 10:49 Urine Ketones Trace (Negative) 01/16/25 10:49 Urine Blood 3+ (Negative) A 01/16/25 10:49 Urine Nitrate Negative (Negative) 01/16/25 10:49 Urine Bilirubin 1+ (Negative) H 01/16/25 10:49 Urine Urobilinogen 1.0 mg/dL (Negative) 01/16/25 10:49 Ur Leukocyte Esterase 3+ (Negative) A 01/16/25 10:49 Urine RBC 15-25 /hpf (0-2) H 01/16/25 10:49 Urine WBC 25-40 /hpf (0-5) H 01/16/25 10:49 Ur Squamous Epith Cells 5-10 /hpf (0-5) H 01/16/25 10:49 Amorphous Sediment Not Reportable 01/16/25 10:49 Urine Bacteria 2+ /hpf (NONE) H 01/16/25 10:49 Hyaline Casts 15-25 /lpf H 01/16/25 10:49 Vancomycin Trough 8.7 ug/mL (10-15) L 01/22/25 04:43 Random Vancomycin 10.7 ug/mL (20.0-40.0) L 01/20/25 03:11 Butalbital Not Reportable 01/18/25 19:15 Salicylates < 0.3 mg/dL (3-10) L 01/18/25 19:15 Opiates Screen negative 01/18/25 19:15 Codeine Not Reportable 01/18/25 19:15 Morphine Not Reportable 01/18/25 19:15 Hydrocodone Not Reportable 01/18/25 19:15 Oxycodone Not Reportable 01/18/25 19:15 Hydromorphone Not Reportable 01/18/25 19:15 Acetaminophen < 5.0 ug/mL (10-30) L 01/18/25 19:15 Barbiturates negative 01/18/25 19:15 Phencyclidine Screen Not Reportable 01/18/25 19:15 Phencyclidine (PCP) negative 01/18/25 19:15 Amphetamines Screen Not Reportable 01/18/25 19:15 Amphetamines negative 01/18/25 19:15 Methamphetamine Not Reportable 01/18/25 19:15 Methylenedioxyamph MDA Not Reportable 01/18/25 19:15 MDMA Not Reportable 01/18/25 19:15 Amobarbital Not Reportable 01/18/25 19:15 Butabarbital Not Reportable 01/18/25 19:15 Pentobarbital Not Reportable 01/18/25 19:15 Phenobarbital Not Reportable 01/18/25 19:15 Secobarbital Not Reportable 01/18/25 19:15 Alprazolam Screen Not Reportable 01/18/25 19:15 Benzodiazepines negative 01/18/25 19:15 Nordiazepam Not Reportable 01/18/25 19:15 Desalkylflurazepam Not Reportable 01/18/25 19:15 Lorazepam Level Not Reportable 01/18/25 19:15 Oxazepam Not Reportable 01/18/25 19:15 Cocaine Not Reportable 01/18/25 19:15 Cocaine Metabolite negative 01/18/25 19:15 Cocaethylene Not Reportable 01/18/25 19:15 Benzoylecgonine Confrm Not Reportable 01/18/25 19:15 Tetrahydrocannabinol negative 01/18/25 19:15 Delta-9 THC Not Reportable 01/18/25 19:15 Delta-9 Carboxy THC Not Reportable 01/18/25 19:15 Drug Screen Comment See note 01/18/25 19:15 Lyme Ab (Western Blot) <0.90 index 01/19/25 18:32 C. difficile (PCR) Negative (Negative) 01/21/25 13:15 Coronavirus (PCR) Negative (Negative) 01/05/25 09:58 CMV IgG Ab >10.00 U/mL H 01/19/25 18:32 CMV IgM Ab <30.00 AU/mL 01/19/25 18:32 HSV I IgG Ab 54.10 index H 01/19/25 18:32 HSV II IgG <0.90 index 01/19/25 18:32 Influenza A (PCR) Positive (Negative) 01/05/25 09:58 Influenza Type B (PCR) Negative (Negative) 01/05/25 09:58 RSV (PCR) Negative (Negative) 01/05/25 09:58 Blood Type A Positive 01/24/25 10:44 Rho(D) Type Rh positive 01/24/25 10:44 Antibody Screen Negative 01/24/25 10:44 Crossmatch See Detail 01/24/25 10:44 Vitals Last Vital Signs Temp 97.8 F 01/25/25 11:54 Pulse 90 01/25/25 11:54 Resp 17 01/25/25 11:54 BP 127/65 01/25/25 11:54 Pulse Ox 96 01/25/25 11:54 O2 Del Method Nasal Cannula 01/25/25 11:54 O2 Flow Rate 2 01/25/25 11:19 FiO2 30 01/12/25 08:00 Discharge Plan Discharge Patient Disposition: Home Condition: Stable Prescriptions: New insulin aspart U-100 [Novolog FlexPen U-100 Insulin] 100 unit/mL (3 mL) insulin pen See Rx Instructions .ROUTE .COMPLEX MDD 40 Qty: 15 0RF Rx Instructions: Inject, subcut, 3 times daily, after meals, based on sliding scale provided olanzapine [Zyprexa] 5 mg tablet 5 mg PO .nightly 30 Days Qty: 30 0RF citalopram 20 mg tablet 20 mg PO DAILY 30 Days Qty: 30 0RF Continued Breztri Aerosphere 160-9-4.8 mcg/actuation HFA aerosol inhaler 2 inh inhalation BID Qty: 10.7 6RF mupirocin 2 % ointment 1 applic topical BID PRN (Reason: Skin Irritation) famotidine 20 mg tablet 20 mg PO BID Qty: 180 0RF montelukast 10 mg tablet 10 mg PO DAILY Qty: 90 1RF oxycodone 15 mg tablet 15 mg PO Q6H PRN (Reason: pain) 30 Days Qty: 120 0RF diphenhydramine HCl [Benadryl] 25 mg Capsule 25 mg PO BEDTIME PRN (Reason: Allergy Symptoms) buspirone 5 mg tablet 5 mg PO BEDTIME PRN (Reason: Anxiety) amiodarone 200 mg tablet 200 mg PO QAM multivitamin Tablet 1 tab PO DAILY Changed atorvastatin 80 mg tablet 40 mg PO BEDTIME Qty: 90 2RF Held Eliquis 5 mg tablet 5 mg PO Q12H Qty: 180 3RF Hold Instructions: Resume on 02/15/25. hold until you see primary care torsemide 20 mg tablet 20 - 40 mg PO QAM Qty: 120 1RF Hold Instructions: Resume on 01/31/25. potassium chloride 10 mEq tablet extended release 10 meq PO DAILY Qty: 90 0RF Hold Instructions: Resume on 01/31/25. Discontinued metolazone 5 mg tablet 5 mg PO DAILY Qty: 30 0RF linezolid [Zyvox] 600 mg tablet 600 mg PO BID 6 Days Qty: 12 0RF lisinopril 2.5 mg tablet 2.5 mg PO DAILY Qty: 90 1RF carvedilol 6.25 mg tablet 6.25 mg PO BID loratadine 10 mg tablet 10 mg PO DAILY glipizide 5 mg tablet 5 mg PO DAILY insulin glargine [Lantus Solostar U-100 Insulin] 100 unit/mL (3 mL) insulin pen 14 unit SUBCUT QAM No Action (DME) overnight oximetry See Rx Instructions .Route .MEDSUPPLY Qty: 1 0RF Rx Instructions: As directed (DME) Inogen portable oxygen device and supplies See Rx Instructions .Route .MEDSUPPLY Qty: 1 0RF Rx Instructions: As directed (DME) FreeStyle [place] 14 Day Sensor Kit See Rx Instructions .Route Qty: 2 11RF Rx Instructions: As directed (DME) FreeStyle [place] 14 Day [place] Misc See Rx Instructions .Route Qty: 1 0RF Rx Instructions: As directed (DME) RSV - pre f3 See Rx Instructions .Route .MEDSUPPLY Qty: 1 0RF Rx Instructions: As directed (DME) blood-glucose meter Misc See Rx Instructions .Route Qty: 1 0RF Rx Instructions: As directed with testing strips (DME) pen needle, diabetic [TechLITE Pen Needle] 32 gauge x 5/32 needle See Rx Instructions .Route Qty: 100 0RF Rx Instructions: As directed (DME) breast prosthesis bilateral and bras x4 See Rx Instructions .Route .MEDSUPPLY Qty: 1 0RF Rx Instructions: As directed (DME) home oxygen 2l/m continuous See Rx Instructions .Route .MEDSUPPLY Qty: 1 0RF Rx Instructions: As directed (DME) CPAP set to 6-16 with supplies See Rx Instructions .Route .MEDSUPPLY Qty: 1 0RF Rx Instructions: As directed (DME) Blood Glucose Test Strip See Rx Instructions .Route Qty: 120 12RF Rx Instructions: free style test strips - test qid Discharge Orders: Discharge Order (Routine); Ordered 01/25/25 Ordered By: Gurmeet Vega Referrals: Iris Potter MD [Physician] - 05/26/25 3:00 pm Darryl Miranda MD [Physician] - 01/27/25 8:40 am (We have notified your physician's clinic of the need for a follow-up appointment to be scheduled. If you have not heard from them within the next 2 business days, please call them directly. ) Kofi Lopze MD [Primary Care Provider] - 02/28/25 9:30 am Discharge Diet: Cardiac Discharge Activity: Resume usual activity Patient Instructions: Olanzapine (By mouth) (Zyprexa, Zyprexa Zydis), Citalopram (By mouth) (Celexa), Insulin Aspart Protamine/Insulin Aspart (By injection) (NovoLOG Mix..., Heart Failure (DC), A-fib (Atrial Fibrillation) (DC), Chronic Kidney Disease (DC), Aspiration Pneumonia (DC), Encephalopathy (DC), Opioid Safety Activity Restrictions/Additional Instructions: - Please hydrate well drink plenty electrolyte balanced fluids -Please follow-up with primary care provider in 1 week -Please monitor your blood sugars closely -Monitor your blood sugars 3 times daily as after meals -Please record your blood sugars, and a blood sugar log -For your NovoLog -Please inject blood sugar after meals based on sliding scale provided -Do not inject insulin if you do not eat as hypoglycemia kills -This is a NovoLog sliding scale -Insulin sliding ?fingerstick? Insulin ?141-180?0 units/sq 181-220?2 units/sq ?221-260?4 units/sq ?261-300 6 units/sq ?301-350?8 units/sq ?351-400 10 units/sq ?401-450?12 units/sq >450? 14units/sq -If your blood sugar is greater than 500 go to the emergency room -If your blood sugar is less than 60 or at anytime you feel lightheaded or dizzy or diaphoretic or have chest palpitations check your blood sugar, and eat a hard candy or drink orange juice and go immediately to the emergency room -Remember hypoglycemia kills, so if his blood sugar is less than 60 we have to increase it by taking in a sugary meal such as a hard candy or orange juice and go to the emergency room -If you have any questions please call us where here to help -If any fevers, chills, worsening mentation please come back to the emergency room Discharge Attestations Time Spent in Discharge Care*: greater than 30 min Quality Metrics Clinical Quality Measures [ No reported AMI, CVA or VTE this stay] Coding Level of Care Code Acute Code for Chg Fwd Diagnoses Acute kidney injury superimposed on CKD N17.9; N18.9
[2025-01-25 16:40] LABS: RMSF IGG NOT DETECTED; RMSF IGM NOT DETECTED
[2025-01-26 21:45] LABS: E. Chaffeensis AB IGG <1:64; E. Chaffeensis AB IGM <1:20
[2025-01-29 13:46] LABS: Plasma Renin Activity LC/MS/MS 1.15 ng/mL/h (0.25-5.82)
== END 2025-01-25 16:16 | disposition home or self-care (01) | DRG 193 ==
LOC: ER 14:51 → ER IP 14:58 → ICU 22:50 → CSU 01-13 15:10 → ICU 01-18 10:34 → MEDSURG 01-23 11:37
PROVIDERS: Internal Medicine; Admitting Provider Internal Medicine; Emergency Provider Family Medicine; PCP Family Medicine; Visit Provider Family Medicine
DX: J10.1 Influenza due to other identified influenza virus with other respiratory manifestations (principal); A41.9 Sepsis, unspecified organism; R65.20 Severe sepsis without septic shock; G93.41 Metabolic encephalopathy; I50.23 Acute on chronic systolic (congestive) heart failure; J96.21 Acute and chronic respiratory failure with hypoxia; N17.9 Acute kidney failure, unspecified; I13.0 Hypertensive heart and chronic kidney disease with heart failure and stage 1 through stage 4 chronic kidney disease, or unspecified chronic kidney disease; N18.4 Chronic kidney disease, stage 4 (severe); J44.1 Chronic obstructive pulmonary disease with (acute) exacerbation; E87.1 Hypo-osmolality and hyponatremia; E87.0 Hyperosmolality and hypernatremia; E13.22 Other specified diabetes mellitus with diabetic chronic kidney disease; E13.42 Other specified diabetes mellitus with diabetic polyneuropathy; E13.649 Other specified diabetes mellitus with hypoglycemia without coma; F17.210 Nicotine dependence, cigarettes, uncomplicated; Z79.4 Long term (current) use of insulin; Z79.84 Long term (current) use of oral hypoglycemic drugs; I48.91 Unspecified atrial fibrillation; F41.1 Generalized anxiety disorder; D64.9 Anemia, unspecified; E78.5 Hyperlipidemia, unspecified; Z99.81 Dependence on supplemental oxygen; I95.9 Hypotension, unspecified; J69.0 Pneumonitis due to inhalation of food and vomit; F28 Other psychotic disorder not due to a substance or known physiological condition; I25.10 Atherosclerotic heart disease of native coronary artery without angina pectoris; E87.6 Hypokalemia; R56.9 Unspecified convulsions; I65.23 Occlusion and stenosis of bilateral carotid arteries; Z86.73 Personal history of transient ischemic attack (TIA), and cerebral infarction without residual deficits; Z11.52 Encounter for screening for COVID-19; Z79.02 Long term (current) use of antithrombotics/antiplatelets
CPT/HCPCS: 36415; 36416; 36430; 36600; 51702; 51798; 70450; 70551; 71045; 71250; 73560; 73590; 74176; 76857; 80048; 80051; 80053; 80202; 80307; 81001; 82088; 82140; 82274; 82330; 82533; 82728; 82803; 82805; 82962; 83010; 83605; 83615; 83735; 83880; 84100; 84145; 84244; 84295; 84443; 84484; 85014; 85018; 85025; 85651; 86140; 86618; 86666; 86695; 86696; 86757; 86850; 86900; 86920; 87040; 87086; 87493; 87637; 92507; 92523; 92526; 92610; 93005; 93306; 94640; 94660; 94664; 94760; 96361; 96372; 96374; 96376; 97110; 97116; 97161; 97167; 97530; 97535; 99291; A9270; J0133; J0456; J1100; J1610; J1630; J1650; J1720; J1815; J1940; J1953; J2060; J2185; J2248; J2270; J2354; J2405; J2919; J3370; J3372; J3480; J3490; J7030; J7050; J7070; J7608; J7626; J7799; P9040; P9046; Q0144; Q3014